=== PATIENT | female | born 1950 | race Caucasian/White ===

== ENCOUNTER 2019-12-06 11:13 | Emergency (ER) | payer MEDICARE, SELFPAY ==
[2019-12-06 11:14] VITALS: BP 155/79; PULSE 97; RESP 16; TEMP 36.3; BMI 25.9
[2019-12-06 12:27] VITALS: RESP 16; O2SAT 95
--- NOTE | 2019-12-06 13:07 | ED.DCSUM_ITS ---
- ER Visit Summary Date of Service: 12/06/19 Chief Complaint: Forehead laceration History of Present Illness: The patient is a 69 F who presents with a forehead laceration that occurred today. Patient states she was walking her dog when he pulled her forward. Patient states she hit her head. Patient denies any loss of consciousness. Patient denies any pain. Patient denies any paresthesias or weakness. Patient was able to ambulate immediately after the fall. Patient states her last tetanus was last week. Patient denies any visual changes. Patient denies any nausea or vomiting. Patient does admit to some mild neck pain. Physical Examination: Vital signs are stable. Patient is afebrile. Patient is in no acute distress. Pupils are equal, round, and reactive to light bilaterally. Extraocular muscles are intact. Skin is warm and dry. There is a 2 x 1 cm T-shaped laceration just above the medial aspect of the left eyebrow. There is minimal gapping of the wound margins. There is no active bleeding. There is no bony crepitance or step-off. There are no foreign bodies noted. Cranial nerves II through XII are intact. Strength is 5/5 bilateral in the upper and lower extremities. Heart was regular rate and rhythm. Lungs are clear and equal bilaterally. Neck is supple. Trachea is midline. There is no JVD. There is minimal left cervical paraspinal tenderness. There is no midline tenderness. There is no bony crepitance or step-off. There is good range of motion. Emergency Department Course and Treatment: The wound was cleaned and irrigated with copious amounts of normal saline. The wound was closed with Dermabond skin adhesive. Patient tolerated procedure well. Patient was instructed to keep the area clean. Patient was instructed to avoid Neosporin, bacitracin, or Vaseline- based ointments. Patient was instructed to follow-up with her primary care physician in 5 to 7 days for wound recheck. Patient understood and was agreeable with the plan. All questions were answered. Disposition: Discharge home Impression: Forehead laceration This note was generated with [employer] dictation software. It may contain incorrect words, spelling, and punctuation that were not noted in review of the chart prior to signing ED Disposition - Plan for ED Patient: Disposition: Home or Assisted Living Diagnosis: Forehead laceration Instructions: ED Laceration Facial Skin Glue Referrals: Ana Lilia Parker DO [Primary Care Provider] - 5-7 Days
== END 2019-12-06 13:21 | disposition home or self-care (01) ==
PROVIDERS: Emergency Provider Emergency Medicine; PCP Internal Medicine
DX: S01.81XA Laceration without foreign body of other part of head, initial encounter (principal); I10 Essential (primary) hypertension; F32.9 Major depressive disorder, single episode, unspecified; E03.9 Hypothyroidism, unspecified; Z79.899 Other long term (current) drug therapy; W26.9XXA Contact with unspecified sharp object(s), initial encounter; Y93.K1 Activity, walking an animal; Y92.89 Other specified places as the place of occurrence of the external cause; Y99.8 Other external cause status
CPT/HCPCS: 12013; 94760; 99284

== ENCOUNTER → 2019-12-15 | Outpatient (CLI) | payer MEDICARE, SELFPAY ==
[2019-12-06 11:14] VITALS: BMI 25.9
--- NOTE | 2019-12-15 12:19 | BI_ITS ---
MAMMOGRAPHY - BILATERAL SCREENING 3-D TOMOSYNTHESIS REASON FOR EXAM: Female, 69 years old. Routine screening PERTINENT HISTORY: NO FAM HX - NO PREV SURG''S - CURRENT LT BRUISE - PREV MAMM 15+ YRS AGO - UNAVAILABLE FOR COMPARISON. TECHNIQUE: 2-D mammograms and 3-D Tomosynthesis of the breast (s) were performed. CAD was performed. COMPARISON: None. FINDINGS: The breast composition is composed of scattered fibroglandular density. Scattered benign calcifications are seen. No dense spiculated masses or suspicious microcalcifications are identified. No architectural distortion is identified. There is no skin thickening or retraction. BI/SCREEN MAMM (CAD) W/LEESA BILAT IMPRESSION: No mammographic signs of malignancy. Routine yearly mammograms recommended. ASSESSMENT CATEGORY: BIRADS Category 1: Negative. A letter regarding these results will be sent to the patient by the facility within 30 days. FOLLOW UP RECOMMENDATION: Yearly follow up mammogram recommended. (A) Approximately 10% of breast cancers are not detected by mammography. A normal mammogram should not delay biopsy of a clinically suspicious abnormality. Electronically Signed: Carlos Fajardo MD at 14:09 EDT , Service support ,
--- NOTE | 2019-12-15 12:20 | BD_ITS ---
STUDY: DUAL ENERGY X-RAY ABSORPTIOMETRY / DXA REASON FOR EXAM: Female, 69 years old. 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 COMPARISON: Comparison is made with prior examination dated 11-07-15. FINDINGS: Lumbar Spine (L1-L4): g/cm2 (1.136) / T-score (-0.4) / Z-score (1.3) Findings are suggestive of normal bone density with a low fracture risk. Left Femur Total: g/cm2 (0.838) / T-score (-1.3) / Z-score (0.1) Left Femoral Neck: g/cm2 (0.802) / T-score (-1.7) / Z-score (-0.1) Right Femur Total: g/cm2 (0.785) / T-score (-1.8) / Z-score (-0.4) Right Femoral Neck: g/cm2 (0.802) / T-score (-1.7) / Z-score (-0.1) The T-Scores on the most recent prior examination were: Lumbar Spine (L1-L4): There has been worsening of bone density since the previous examination. Left Femur Total: which represents an improvement of 0.4%. Right Femur Total: which represents a worsening of 2%. BD/Dexa Bone Density Study IMPRESSION: The patient is considered osteopenic as outlined below according to World Trist[employer] Organization (WHO) criteria with a moderate fracture risk. There has been worsening of bone density since the previous examination. Reference Information: The T-score is the number of standard deviations above or below the standard which is normal for young adults at their peak bone mineral density. The World Health Organization (WHO) interprets the T-scores as follows: Above -1 Normal bone density Between -1 and -2.5 Osteopenia Equal to / or below -2.5 Osteoporosis As a practical clinical guideline, osteopenia may be graded as follows: Mild -1 through -1.5 Moderate -1.6 through -2.0 Severe -2.1 through -2.4 The Z-score is the number of standard deviations above or below age-matched controls. A Z-score of less than -1.5 would be considered abnormal. References: 1. NIH Osteoporosis and Related Bone Diseases http://www.osteo.org 2. International Society for Clinical Densitometry http://www.iscd.org 3. National Osteoporosis Foundation http://www.nof.org Electronically Signed: Kenton Person, at 8:48 EDT , Service support ,
== END | disposition home or self-care (01) ==
PROVIDERS: PCP Internal Medicine; Referring Provider Internal Medicine; Visit Provider Internal Medicine
DX: Z78.0 Asymptomatic menopausal state (principal); Z12.31 Encounter for screening mammogram for malignant neoplasm of breast
CPT/HCPCS: 77063; 77067; 77080

== ENCOUNTER 2020-06-08 21:49 | Emergency (ER) | payer MEDICARE, SELFPAY ==
[2020-06-08 21:50] VITALS: BP 151/84; PULSE 161; PULSE 97; RESP 22; TEMP 36.5; O2SAT 97; BMI 26.2
[2020-06-08 22:13] VITALS: O2SAT 99
--- NOTE | 2020-06-08 22:13 | EKG12_ITS ---
Test Reason : CHEST PAIN Blood Pressure : / mmHG Vent. Rate : 096 BPM Atrial Rate : 096 BPM P-R Int : 164 ms QRS Dur : 074 ms QT Int : 370 ms P-R-T Axes : 058 048 054 degrees QTc Int : 467 ms Sinus rhythm with Premature supraventricular complexes Nonspecific ST abnormality Abnormal ECG Confirmed by GALDINO ROOT, GIANLUCA ([id number]), senior technical editor MARCELO ROJAS ([id number]) on 06/13/2020 6:43:05 AM Referred By: AWAIS Confirmed By:GIANLUCA AHMADI MD
--- NOTE | 2020-06-08 22:22 | RAD_ITS ---
STUDY: X-RAY CHEST REASON FOR EXAM: Female, 69 years old. chest pain radiating into right arm x 30 min. TECHNIQUE: Single AP portable view of the chest. COMPARISON: 07/05/2016. FINDINGS: The lungs are clear and expanded. There is no demonstrated pleural abnormality. Normal size heart. Normal mediastinum and sam. Normal visualized pulmonary arteries. Normal visualized aortic arch and descending thoracic aorta. Normal visualized thoracic spine. Normal visualized ribs, clavicles, and shoulders. There is no demonstrated abnormality of the visualized soft tissue structures of the upper abdomen. RAD/Chest 1 View (Portable) IMPRESSION: Normal x-ray examination of the chest. Electronically Signed: Henry Barkley MD at 22:34 EST , Service support ,
--- NOTE | 2020-06-08 22:34 | ED.VIS.GEN ---
History of Present Illness Chief Complaint: Chest Pain Informant: Patient Narrative: Patient is a 69-year-old female with a past medical history of WPW status post ablation approximately 18 years ago, hypothyroidism who presents to the emergency department for palpitations. This started approximately 30 minutes upon arrival to the ED. Sure watch was telling her heart rate was in the 120s. She felt her heart racing and started to get pain in her right arm. She denies ever having this happen before. She denies any history of CAD. She denied having any significant shortness of breath throughout this episode. Whenever she arrived to the emergency department she started to feel better and on my evaluation she is completely asymptomatic. She denies any recent illness. She denies any fevers or chills. No cough. No nausea/vomiting or diarrhea. She did have a recent decrease in her Synthroid a few weeks ago and she is supposed to have her TSH checked in a week or 2. She denies any leg swelling or calf pain. No history of DVT/PE. Past Medical History - Allergies and Home Meds Allergies/Adverse Reactions: Allergies No Known Allergies Allergy (Verified 06/08/20 21:54) Primary Care Physician: Ana Lilia Parker DO [Primary Care Provider] - 2 Days Prior records reviewed: Yes Past Medical History: - - WPW status post ablation, hypothyroidism Smoking Status: Never smoker Review of Systems All systems negative except as indicated General: Denies: Chills, Fever, Sweats Eyes: Denies: Visual changes - bilaterally, Diplopia ENT: Denies: Rhinorrhea, Sore throat Cardiovascular: Reports: Chest pain, Palpitations, Heart racing Respiratory: Denies: Dyspnea, Cough, Dyspnea on exertion Gastrointestinal: Denies: Abdominal pain, Nausea, Vomiting, Diarrhea Genitourinary: Denies: Dysuria, Hematuria, Frequency Musculoskeletal: Denies: Back pain, Extremity Pain Skin: Denies: Rash, Wounds Neurological: Denies: Headache, Weakness, Numbness Physical Exam Vital Signs/Narrative: Vital Signs Temp Pulse Resp BP Pulse Ox 06/08/20 21:50 97.7 F L 97 22 H 151/84 H 97 Inital Vital Signs reviewed: Yes General: Well nourished, Well developed, No Acute Distress Head: Normocephalic, Atraumatic Eyes: Perrl, EOMI ENT: Moist mucous membranes, No rhinorrhea Neck: Supple, Nontender Cardiovascular: Regular rhythm, No murmurs, Tachycardia - Borderline Respiratory: No distress, CTA bilaterally, Chest nontender Abdomen: Soft, Nontender, Nondistended, Normal bowel sounds Back: Nontender, Normal Inspection Extremities: Nontender, No edema. Negative for: Edema, Calf Tenderness Skin: Normal color, No rash Neurological: Alert, Oriented x3, Cranial nerves II-XII grossly intact, Normal Strength, Normal Sensation Psychological: Normal affect, Normal Mood Diagnostic/Tx/Re-eval - Rhythm Strip Rhythm Strip: A-fib - Patient's rhythm strip upon arrival showed an irregularly irregular rhythm with rates up to 150s. She did convert back to a sinus rhythm. - EKG Initial EKG Interpretation: - - Rate of 96 bpm and normal sinus rhythm. There is a PAC present. Otherwise normal intervals. Normal axis. No significant ST elevations or depressions. Prior EKG for comparison was performed on July 05, 2016 which is similar in appearance. - Medical Decision Making Patient presents to the emergency department for chest pain and palpitations. She was in atrial fibrillation upon arrival but converted without any management on her own. She is completely asymptomatic at this time. Basic lab work being obtained along with chest x-ray. Patient's lab work-up did not reveal any significant acute abnormality. Her potassium was mildly low so this was replaced orally. Her troponin is negative. She otherwise has been stable throughout ED stay without any repeat symptoms. She is adamant on going home now. She needs to have close follow-up with her PCP as I am not sure what caused her to go into this episode of A. fib with RVR. She will likely need a stress test but this can be done as an outpatient. Strict return precautions were discussed with her including any repeat symptoms or developing any chest pain or shortness of breath. She understands and is agreeable this plan. She is discharged home in stable condition. All questions were answered. ED Disposition - Plan for ED Patient: Disposition: Home or Assisted Living Diagnosis: Episodic atrial fibrillation, Palpitations Instructions: ED Palpitations Referrals: Ana Lilia Parker DO [Primary Care Provider] - 2 Days
[2020-06-08 22:41] LABS: Absolute Lymphocyte Count 3.04 X10^3/uL (0.83-4.51); Absolute Neutrophil Count 4.7 X10^3/uL (2.0-7.7); Basophil# 0.08 X10^3/uL; Basophil% 0.9 % (0-1); Eosinophil# 0.35 X10^3/uL; Eosinophils% 3.7 % (0-5); Hematocrit 45.5 % (37-47); Hemoglobin 15.3 g/dL (12.0-15.0); Lymphocyte # 3.04 X10^3/ul (4.0); Lymphocyte % 32.5 % (19-41); Mean Corp Hgb Conc 33.6 g/dL (32-36); Mean Corpuscular Hgb 29.2 pg (27.0-32.0); Mean Corpuscular Volume 86.8 fL (81-99); Mean Platelet Vol. 11.5 fl (6.2-12.0); Monocyte# 1.21 X10^3/uL; Monocyte% 12.9 % (0-10); NRBC Flagged by Analyzer 0 % (0-5); Neutrophil # 4.65 X10^3/uL (2.7-7.7); Neutrophil % 49.7 % (47-70); Platelet Count 304 K/mm3 (150-450); RBC Distribution Width CV 13.2 % (11.6-14.6); RBC Distribution Width SD 41.5 fl (35.1-43.9); Red Blood Count 5.24 M/mm3 (4.2-5.4); White Blood Count 9.4 K/mm3 (4.4-11.0)
[2020-06-08 22:50] VITALS: BP 129/79; PULSE 100; RESP 17; O2SAT 98
[2020-06-08 22:55] LABS: Anion Gap 5 (5-15); BUN 18 mg/dL (7-18); BUN/Creat Ratio 21.6 RATIO (10-20); Calcium,Total 9.3 mg/dL (8.5-10.1); Chloride 103 mmol/L (98-107); Creatinine, Serum 0.83 mg/dL (0.55-1.02); EST Glomerular Filtration Rate 72 mL/min (>60); Est Glom Filt Rate - Afr Amer 87 mL/min (>60); Estimated Creatinine Clearance 48.27 ml/min; Glucose 123 mg/dL (74-106); Magnesium 2.4 mg/dL (1.6-2.6); Potassium 3.2 mmol/L (3.5-5.1); Sodium Level 139 mmol/L (136-145)
[2020-06-08 23:00] VITALS: BP 129/79; PULSE 99; RESP 17; O2SAT 98
[2020-06-08 23:50] VITALS: PULSE 97
== END 2020-06-08 23:51 | disposition home or self-care (01) ==
PROVIDERS: Emergency Provider Emergency Medicine; PCP Internal Medicine
DX: I48.91 Unspecified atrial fibrillation (principal); R00.2 Palpitations; E03.9 Hypothyroidism, unspecified; Z79.899 Other long term (current) drug therapy
CPT/HCPCS: 71045; 80048; 83735; 84484; 85025; 93005; 99285; A4216

== ENCOUNTER → 2020-06-21 06:54 | Outpatient (CLI) | payer MEDICARE, SELFPAY ==
[2020-06-08 21:50] VITALS: BMI 26.2
--- NOTE | 2020-06-22 18:43 | STRESSREP_ITS ---
Stress Test Report Date: 06/21/2020 Procedure: Exercise tolerance test/imaging study Indications: Chest pain Consent: Per the patient Procedure: The patient exercised on a Collins protocol for 6 minutes achieving a peak heart rate of 139 bpm (92% predicted maximal heart rate) with a peak blood pressure 190/70 mmHg and a peak MET capacity of 7 METs. The baseline ECG demonstrated [sinus rhythm]. The peak exercise ECG demonstrated [about [address] depressions in the inferior and lateral leads, but a 6 beat run of nonsustained V. tach]. EKG during recovery revealed return of ST segments to baseline [There were no cardiac dysrhythmias pretest, during exercise, or recovery]. The functional capacity was considered normal for age. Patient had chest pain with exertion. The examination was discontinued secondary to achieving target heart rate. Impression: 1. Technically adequate (percent predicted maximal heart rate greater than 85%) exercise tolerance test 2. Stress test is positive for exercise-induced EKG changes of ischemia 3. The test test is positive for exercise-induced chest pain 4. Functional capacity is normal for age 5. Nuclear images pending Myocardial perfusion imaging study: Technique: The patient was injected with [] mCi of technetium 99m Cardiolite and subsequently rest SPECT Cardiolite nuclear imaging was obtained in the horizontal long, vertical long, and short axis views. The patient exercised on a Collins protocol. Please see above for details. The patient was injected with [] mCi of technetium 99m Cardiolite and subsequently stress SPECT Cardiolite nuclear imaging was obtained in the horizontal long, vertical long, and short axis views. A gated Cardiolite study at peak stress was obtained. Interpretation: Rest and stress SPECT Cardiolite nuclear imaging status post realignment, normalization, and attenuation correction, demonstrates normal myocardial radiotracer uptake on the stress images. There is no evidence of significant ischemia or infarction. The gated Cardiolite study demonstrates no significant regional wall motion abnormalities. The reported LVEF is greater than 70%. Impression: 1. There is no evidence of significant ischemia or infarction. Please see the EKG portion above as well. 2. The gated Cardiolite study reports an LVEF of greater than 70%. This note was generated with [employer] software. It may contain incorrect words, spelling, and punctuation that were not noted in checking the note before signing.
== END ==
PROVIDERS: PCP Internal Medicine; Referring Provider Internal Medicine; Visit Provider Internal Medicine
DX: R07.89 Other chest pain (principal)
CPT/HCPCS: 78452; 93017; A9500; A4216

== ENCOUNTER → 2020-06-25 12:43 | Outpatient (CLI) | payer MEDICARE, SELFPAY ==
[2020-06-08 21:50] VITALS: BMI 26.2
--- NOTE | 2020-06-25 12:47 | ECHOD_ITS ---
Reason For Study: Chest Pain Procedure This was a 2D Doppler, Color Flow transthoracic echocardiogram. Exam performed in department. Left Ventricle Normal LV size. Apical false tendon noted. Left ventricular systolic function is normal. The estimated ejection fraction is 65 %. Stage 1 diastolic dysfunction. No regional wall motion abnormalities noted. Right Ventricle Normal RV size. Normal systolic function. Atria Normal left atrium. Normal right atrium. Mitral Valve Normal mitral valve. Tricuspid Valve Normal tricuspid valve. Aortic Valve Normal aortic valve. Trisinus/trileaflet aortic valve. Pulmonic Valve Normal pulmonic valve. Great Vessels Normal aortic root. The pulmonary artery is normal size. Normal inferior vena cava. Pericardium/Pleural No pericardial effusion. MMode/2D Measurements & Calculations LVIDd: 3.9 cm IVSd: 1.0 cm Ao root diam: 3.1 cm LVIDs: 2.0 cm LVPWd: 0.79 cm LA dimension: 3.2 cm FS: 48.2 % LAV(MOD-bp): 42.8 ml LA A4 area: 17.8 cm2 RA A4 area: 17.9 cm2 LAV(MOD-bp) Indexed: 26.0 ml/m2 LAV(MOD-sp2): 38.5 ml LAV(MOD-sp4): 46.0 ml Time Measurements MV dec time: 0.31 sec Doppler Measurements & Calculations MV E max diego: 72.3 cm/sec Lat Peak E' Diego: 8.9 cm/sec Med Peak E' Diego: 8.1 cm/sec MV A max [place]go: 93.8 cm/sec E/E' lat: 8.1 E/E' med: 9.0 MV E/A: 0.77 MV V2 max: 106.9 cm/sec MV P1/2t max [place]: 104.0 cm/sec Ao V2 max: 146.5 cm/sec MV max P.6 mmHg MV P1/2t: 105.7 msec Ao max P.6 mmHg MV V2 mean: 60.6 cm/sec MV dec slope: 288.1 cm/sec2 MV mean P.7 mmHg MVA(P1/2t): 2.1 cm2 MV V2 VTI: 35.1 cm LV V1 max: 127.3 cm/sec PA V2 max: 105.0 cm/sec LV V1 max P.5 mmHg Interpretation Summary Normal LV size. Left ventricular systolic function is normal. The estimated ejection fraction is 65 %. Stage 1 diastolic dysfunction. Ordering Physician: Ana Lilia Parker Referring Physician: Ana Lilia Parker Performed By: Slava Lopez RCS
== END ==
PROVIDERS: PCP Internal Medicine; Referring Provider Internal Medicine; Visit Provider Internal Medicine
DX: R07.89 Other chest pain (principal)
CPT/HCPCS: 93306

== ENCOUNTER → 2020-08-20 12:29 | Outpatient (CLI) | payer MEDICARE, SELFPAY ==
[2020-08-02 11:11] VITALS: BMI 27.3
== END ==
PROVIDERS: PCP Internal Medicine; Referring Provider Internal Medicine Cardiovascular Disease; Visit Provider Internal Medicine Cardiovascular Disease
DX: I47.2 Ventricular tachycardia (principal); I45.6 Pre-excitation syndrome; R07.9 Chest pain, unspecified; I10 Essential (primary) hypertension; R94.39 Abnormal result of other cardiovascular function study; Z98.890 Other specified postprocedural states
CPT/HCPCS: 93225; 93226

== ENCOUNTER → 2020-08-24 09:00 | Outpatient (CLI) | payer MEDICARE, SELFPAY ==
[2020-08-02 11:11] VITALS: BMI 27.3
--- NOTE | 2020-08-24 09:20 | RAD_ITS ---
INDICATION: chest pain EXAMINATION/TECHNIQUE: X-RAY - XR Chest 2 Views COMPARISON: 06/08/2020. FINDINGS: The lungs are clear. The cardiomediastinal silhouette is unremarkable. No pleural effusion or pneumothorax. No acute osseous abnormalities. Degenerative changes of thoracic spine. RAD/Chest PA and Lateral IMPRESSION: No acute radiographic abnormalities. Electronically Signed: Byron Nguyen MD at 21:43 EDT Tel , Service support ,
[2020-08-24 09:23] LABS: Absolute Lymphocyte Count 1.32 X10^3/uL (0.83-4.51); Absolute Neutrophil Count 3.2 X10^3/uL (2.0-7.7); Basophil# 0.07 X10^3/uL; Basophil% 1.3 % (0-1); Eosinophil# 0.23 X10^3/uL; Eosinophils% 4.2 % (0-5); Hemoglobin 15.1 g/dL (12.0-15.0); Lymphocyte # 1.32 X10^3/ul (4.0); Lymphocyte % 24.4 % (19-41); Mean Corp Hgb Conc 32.8 g/dL (32-36); Mean Corpuscular Volume 88.3 fL (81-99); Mean Platelet Vol. 10.6 fl (6.2-12.0); Monocyte# 0.57 X10^3/uL; Monocyte% 10.5 % (0-10); NRBC Flagged by Analyzer 0 % (0-5); Neutrophil # 3.22 X10^3/uL (2.7-7.7); Neutrophil % 59.4 % (47-70); Platelet Count 308 K/mm3 (150-450); RBC Distribution Width CV 12.3 % (11.6-14.6); RBC Distribution Width SD 39.8 fl (35.1-43.9); Red Blood Count 5.21 M/mm3 (4.2-5.4); White Blood Count 5.4 K/mm3 (4.4-11.0)
[2020-08-24 09:31] LABS: Prothrombin Time (Protime)PT. 12.6 SECONDS (11.7-14.9)
[2020-08-24 09:32] LABS: Partial Thromboplast Time 24.8 Seconds (24.1-36.2)
[2020-08-24 10:06] LABS: Anion Gap 5 (5-15); BUN 14 mg/dL (7-18); BUN/Creat Ratio 19.4 RATIO (10-20); Calcium,Total 8.8 mg/dL (8.5-10.1); Chloride 103 mmol/L (98-107); Creatinine, Serum 0.72 mg/dL (0.55-1.02); EST Glomerular Filtration Rate 85 mL/min (>60); Est Glom Filt Rate - Afr Amer 103 mL/min (>60); Glucose 100 mg/dL (74-106); Potassium 3.6 mmol/L (3.5-5.1); Sodium Level 138 mmol/L (136-145)
== END ==
PROVIDERS: PCP Internal Medicine; Visit Provider Internal Medicine Cardiovascular Disease
DX: I10 Essential (primary) hypertension (principal); I45.6 Pre-excitation syndrome; I47.2 Ventricular tachycardia; R07.9 Chest pain, unspecified; R94.39 Abnormal result of other cardiovascular function study; Z98.890 Other specified postprocedural states
CPT/HCPCS: 36415; 71046; 80048; 85025; 85610; 85730

== ENCOUNTER 2020-08-28 07:39 | Day surgery (SDC) | payer MEDICARE, SELFPAY ==
[2020-08-02 11:11] VITALS: BMI 27.3
[2020-08-27 08:32] VITALS: BMI 27.1
--- NOTE | 2020-08-27 17:48 | PCM.HP.BLA ---
Problem List (1) Chest pain Status: Acute Qualifiers: (2) WPW (Vdzdh-Sxjzdhrqx-Vicqi syndrome) Status: Acute (3) History of radiofrequency ablation procedure for cardiac arrhythmia Status: Resolved (4) Essential hypertension Status: Chronic History and Physical Date of Admission: 08/28/20 [facility] [address] [place] [address] OFFICE VISIT Date of Service: 08/02/20 MR#: [id number] Acct: [id number] Name: BECKY GARZA Rep #: [id number] : 1950 Provider: Dr. Jorge Alberto Valle MD Age/Sex: 69/F Location: [facility] [place] Status: Signed HPI HPI History of Present Illness Surgical H&P: Yes Details: This is a 69-year-old white female who has previously been evaluated by [facility] in the remote past (greater than 3 years ago) who presents now for evaluation of concerns of palpitations, chest discomfort, and an abnormal exercise tolerance test. In the past she had been diagnosed with WPW and underwent EPS/RFA. Since that time she does not believe she has had any recurrence of her supraventricular dysrhythmia. She notes more recently she has had palpitations. She states she thinks these are occurring every day or 2 days. She also gets chest discomfort with this. She has undergone recent noninvasive evaluation on 06-25-2020. This included a transthoracic echocardiogram. The results are noted below. She had also undergone evaluation with an exercise tolerance test/imaging study which had been performed on 06-21-2020. Again the report was reviewed and is as noted below. Of note there was a discrepancy in her exercise tolerance test demonstrating a concern of an abnormal ECG exercise tolerance test with ST segment depression and an episode of nonsustained ventricular tachycardia. Her myocardial perfusion study appeared to be unremarkable. She has undergone remote transthoracic echocardiogram on 04-28-2002 at which time her left ventricle was thought to be normal with an LVEF of 63% with notation of an apical false tendon and trivial MR/TR/NV and an estimated RV systolic pressure of 31 mmHg. She had a previous stress echocardiogram performed on 08-30-2002 at which time it was considered negative for echocardiographic evidence of stress-induced myocardial ischemia. She had an occasional PAC during exercise and recovery. She had an ECG at [facility] on 06-08-2020. At that time it was reported as demonstrating sinus rhythm with premature supraventricular complexes with nonspecific ST segment abnormality. This was repeated today. She was noted to have sinus rhythm with no acute ECG changes. She has denied any other forms of discomfort. She denies any orthopnea or PND or peripheral pitting edema. There has been no near syncope or syncope. Intake Vital Signs 08/02/20 Height 5 ft 1 in 08/02/20 Weight: 144 lb 7 oz 08/02/20 BMI 27.3 08/02/20 BP 124/58 H 08/02/20 Blood Pressure Location Lt brachial 08/02/20 Position Sitting 08/02/20 Respiration 16 08/02/20 Pulse 72 08/02/20 Pulse Source Auscultation Intake Visit Reasons: Abn Stress/Ref. [employer] Specialist Required: No Accompanied by: Self Allergies No Known Allergies Allergy (Verified 08/02/20 11:11) anesthesia Adverse Reaction (Uncoded 08/02/20 14:21) Nausea & Vomiting Medications Cholecalciferol (Vitamin D3) [Vitamin D3] 4,000 unit PO DAILY 07/05/16 [History Confirmed 08/02/20] Chlorthalidone 25 mg PO DAILY 12/06/19 [History Confirmed 08/02/20] Diltiazem [Cardizem] 120 mg PO DAILY 12/06/19 [History Confirmed 08/02/20] Duloxetine Hcl [Cymbalta] 60 mg PO DAILY 12/06/19 [History Confirmed 08/02/20] Alendronate Sodium 70 mg PO QMONTH 06/08/20 [History Confirmed 08/02/20] Brimonidine 0.15% [Alphagan P 0.15%] 1 drp OPHTHALMIC TID 06/08/20 [History Confirmed 08/02/20] calcium carbonate 600 mg calcium (1,500 mg) tablet 600 mg PO DAILY 07/31/20 [History Confirmed 08/02/20] isosorbide mononitrate 30 mg tablet,extended release 24 hr 30 mg PO DAILY 07/31/20 [History Confirmed 08/02/20] aspirin 81 mg tablet,delayed release 81 mg PO DAILY #30 tab 08/02/20 [Rx Confirmed 08/02/20] clopidogrel 75 mg tablet 75 mg PO DAILY #30 tab 08/02/20 [Rx Confirmed 08/02/20] levothyroxine 112 mcg tablet 112 mcg PO DAILY 08/02/20 [History Confirmed 08/02/20] [facility] Medical History WPW (Ujfdv-Zftvfthyx-Bigaj syndrome) (Acute) Chest pain (Acute) Hypothyroidism (Chronic) Family history of UT (myocardial infarction) (Acute) SVT (supraventricular tachycardia) (Acute) Essential hypertension (Chronic) Depression (Acute) Surgical History History of radiofrequency ablation procedure for cardiac arrhythmia (Resolved ~2002) History of surgery on left wrist (Resolved) Family History Other Diabetes Heart disease Hypertension Myocardial infarction Social History (Updated 08/02/20 @ 15:[address] Jorge Alberto Valle MD) Smoking Status: Never smoker alcohol intake: never substance use type: does not use caffeine: Yes Type: tea Number of servings: 6 ROS Const Const: Positive for fatigue (sleepy); negative for weakness, frequent falls, excessive sweating, weight gain or weight loss Eyes Eyes: Negative for transient loss of vision, blurry vision or change in vision ENT ENT: Positive for dizziness (HX vertigo); negative for balance problems Cardio Chest Pain: Yes Character: other (pressure noted w/palpitations) Onset: at rest, exercise Location: left chest Duration: minutes Palpitations: Yes (just about daily) feels like its: fast Edema: None Muscle aches with walking: None Resp Respiratory: Positive for SOB with activity (occasional); negative for SOB at rest GI GI: Negative vomiting or vomiting blood/hematemesis : Negative for hematuria Musc Musc: Negative for muscle aches/ myalgia, muscle weakness, joint pain or balance problems Skin Skin: Negative non-healing lesions or rash Neuro Neuro: Positive for dizziness (HX vertigo) and vertigo (HX); negative for lightheadedness, orthostatic symptoms, frequent falls, weakness or blurry vision Vadim Hematologic/Lymphatic: Negative for easy bleeding Endo Endo: Positive for fatigue (sleepy); negative for excessive sweating Psych Psych: Negative for anxiety or depression Allergy Allergy/Immunology: Negative for hives, Negative for rash Cardiology Exam Const Appearance: cooperative, healthy appearing, comfortable, no acute distress, well developed and well groomed Nutritional Appearance: average body habitus Orientation: alert, awake and oriented x3 Head Head: normal to inspection, normocephalic and atraumatic Ears: hearing grossly normal bilaterally Nose: external nose normal Face and Sinus: face symmetric Eyes Eyelids: eyelids normal Conjunctivae: conjunctivae normal Pupils: PERRL EOM: EOM intact bilaterally Neck Neck: normal visual inspection and full ROM Carotids: normal carotid upstroke Chest Chest inspection: normal inspection of the chest, symmetric chest movement and normal respiratory effort Auscultation: Bilateral: Clear to Auscultation Cardio Palpation: normal PMI Rate: regular rate Rhythm: regular rhythm Heart sounds: S1 normal and S2 normal GI GI: normal to inspection, soft and bowel sounds present Neuro General: alert, awake, oriented x3 and moves all extremities Skin Skin: no rashes or lesions noted Extremities Pulses: Normal: Right Radial Pulse, Left Radial Pulse Lower Extremity Edema: None: Bilateral Psych Psychological: normal affect Assessment & Plan 1. WPW (Dtrkw-Llodhkynx-Uijqg syndrome) I45.6 Plan At the present time she does have a history of WPW. She is undergone EPS/RFA. There is been no obvious recurrence of her dysrhythmia. Orders Orders: Left Heart Cath/COR/LV Percut Today Basic Metabolic Profile (BMP) Today Partial Thromboplast Time Today Prothrombin Time w/INR Today Cardiac Holter Monitor, Set-Up Today CBC W/Diff, Automated Today Chest PA and Lateral Today 2. History of radiofrequency ablation procedure for cardiac arrhythmia Z98.890 Plan Her previous EPS/RFA report is unavailable for review at this time. Orders Orders: Left Heart Cath/COR/LV Percut Today Basic Metabolic Profile (BMP) Today Partial Thromboplast Time Today Prothrombin Time w/INR Today Cardiac Holter Monitor, Set-Up Today CBC W/Diff, Automated Today Chest PA and Lateral Today 3. Precordial pain R07.2 Plan She does have a combination of palpitations and precordial chest discomfort that appears to be associated with them. She will have further evaluation with an Holter monitor. At the same time based upon her discomfort and her ECG exercise tolerance test results and her ventricular dysrhythmia finding it would not be unreasonable to further definitively evaluate her coronary anatomy for any underlying CAD with a diagnostic cardiac catheterization. The procedure and risks were discussed with her and she was agreeable to this. 4. Palpitations R00.2 Plan She does palpitations. Again there is concern as to whether this could be recurrence of her previous cardiac dysrhythmia versus underlying ectopy or some other form of dysrhythmia. As previously noted she did have evidence of ventricular tachycardia on her exercise tolerance test. Thus she will undergo evaluation, as she states this occurs usually on an every day occurrence, with an Holter monitor. 5. Ventricular tachycardia I47.2 Plan Her exercise ECG did demonstrate concerns of ventricular tachycardia. Again this does raise concern about the possibility of CAD despite her myocardial perfusion study remaining unremarkable which potentially could be a false negative study. Thus she will continue medical management and undergo evaluation as noted. Orders Orders: Left Heart Cath/COR/LV Percut Today Basic Metabolic Profile (BMP) Today Partial Thromboplast Time Today Prothrombin Time w/INR Today Cardiac Holter Monitor, Set-Up Today CBC W/Diff, Automated Today Chest PA and Lateral Today 6. Abnormal cardiovascular stress test R94.39 Plan Her exercise tolerance test is mixed. Based upon her symptoms and her ECG findings and her ventricular dysrhythmia findings it was felt prudent that she undergo further evaluation with diagnostic cardiac catheterization. Again the procedure and risks were discussed with her and she was agreeable to this. Orders Orders: Left Heart Cath/COR/LV Percut Today Basic Metabolic Profile (BMP) Today Partial Thromboplast Time Today Prothrombin Time w/INR Today Cardiac Holter Monitor, Set-Up Today CBC W/Diff, Automated Today Chest PA and Lateral Today 7. Essential hypertension I10 Plan She will continue medical therapy as deemed appropriate. Orders Orders: 12 Lead EKG performed by BMS Today Left Heart Cath/COR/LV Percut Today Basic Metabolic Profile (BMP) Today Partial Thromboplast Time Today Prothrombin Time w/INR Today Cardiac Holter Monitor, Set-Up Today CBC W/Diff, Automated Today Chest PA and Lateral Today Plan Detail Other Orders Orders: 12 Lead EKG performed by BMS Today I47.1 Left Heart Cath/COR/LV Percut Today R07.9 Basic Metabolic Profile (BMP) Today R07.9 Partial Thromboplast Time Today R07.9 Prothrombin Time w/INR Today R07.9 Cardiac Holter Monitor, Set-Up Today R07.9 CBC W/Diff, Automated Today R07.9 Chest PA and Lateral Today R07.9 Other Medications New: aspirin 81 mg PO DAILY 30 tabs 0RF clopidogrel (Plavix) 75 mg PO DAILY 30 tabs 1RF Follow Up 3 Months (PFM) Coding Level of Care Code Off vis,new,level 5 Diagnoses WPW (Hedci-Ckklgeayd-Elnos syndrome) I45.6 History of radiofrequency ablation procedure for cardiac arrhythmia Z98.890 Precordial pain R07.2 ??Chest pain type: precordial pain Palpitations R00.2 Ventricular tachycardia I47.2 Abnormal cardiovascular stress test R94.39 Essential hypertension I10 Coding Level of Care Code Off vis,new,level 5 Diagnoses WPW (Iotur-Hvnzhaabs-Brleg syndrome) I45.6 History of radiofrequency ablation procedure for cardiac arrhythmia Z98.890 Precordial pain R07.2 ??Chest pain type: precordial pain Palpitations R00.2 Ventricular tachycardia I47.2 Abnormal cardiovascular stress test R94.39 Essential hypertension I10 Supplemental Info Supplemental Information Echocardiogram: 06-25-2020 Interpretation Summary Normal LV size. Left ventricular systolic function is normal. The estimated ejection fraction is 65 %. Stage 1 diastolic dysfunction. Stress Test Report Date: 06/21/2020 Procedure: Exercise tolerance test/imaging study Indications: Chest pain Consent: Per the patient Procedure: The patient exercised on a Collins protocol for 6 minutes achieving a peak heart rate of 139 bpm (92% predicted maximal heart rate) with a peak blood pressure 190/70 mmHg and a peak MET capacity of 7 METs. The baseline ECG demonstrated [sinus rhythm]. The peak exercise ECG demonstrated [about [address] depressions in the inferior and lateral leads, but a 6 beat run of nonsustained V. tach]. EKG during recovery revealed return of ST segments to baseline [There were no cardiac dysrhythmias pretest, during exercise, or recovery]. The functional capacity was considered normal for age. Patient had chest pain with exertion. The examination was discontinued secondary to achieving target heart rate. Impression: 1. Technically adequate (percent predicted maximal heart rate greater than 85%) exercise tolerance test 2. Stress test is positive for exercise-induced EKG changes of ischemia 3. The test test is positive for exercise-induced chest pain 4. Functional capacity is normal for age 5. Nuclear images pending Myocardial perfusion imaging study: Technique: The patient was injected with [] mCi of technetium 99m Cardiolite and subsequently rest SPECT Cardiolite nuclear imaging was obtained in the horizontal long, vertical long, and short axis views. The patient exercised on a Collins protocol. Please see above for details. The patient was injected with [] mCi of technetium 99m Cardiolite and subsequently stress SPECT Cardiolite nuclear imaging was obtained in the horizontal long, vertical long, and short axis views. A gated Cardiolite study at peak stress was obtained. Interpretation: Rest and stress SPECT Cardiolite nuclear imaging status post realignment, normalization, and attenuation correction, demonstrates normal myocardial radiotracer uptake on the stress images. There is no evidence of significant ischemia or infarction. The gated Cardiolite study demonstrates no significant regional wall motion abnormalities. The reported LVEF is greater than 70%. Impression: 1. There is no evidence of significant ischemia or infarction. Please see the EKG portion above as well. 2. The gated Cardiolite study reports an LVEF of greater than 70%. Labs LDL Cholesterol 123 mg/dL (0-130) 12/09/16 HDL Cholesterol 68 mg/dL (40-) 12/09/16 Triglycerides 67 mg/dL (-199) 12/09/16 VLDL Cholesterol 13 mg/dL (5-40) 12/09/16 Diagnostics Electrocardiogram 08/02/20 Echocardiogram 06/25/20 Stress Test Nuclear Medicine 06/21/20 Stress Test 06/22/20 Chest X-Ray 06/08/20 COVID (Procedure Consent) Procedure Criteria Procedure Criteria: Yes Elective The surgeon/proceduralist and patient have discussed in detail the risk of exposure to and/or potential harm posed by the COVID-19 virus with having a surgery/procedure at this time versus the risk of? delaying the surgery/procedure. It is not possible to know either the risk of delaying the surgery or procedure or chance of getting an infection with perfect accuracy, but a joint decision was made between the patient and the surgeon/proceduralist ?to proceed at this time with the scheduled surgery/procedure as indicated on the consent form. 08/02/20 1538 <Electronically signed by Jorge Alberto Valle MD> Date Jorge Alberto Valle MD I have re-examined the patient. There are no clinical changes since date of exam. I have re-examined the patient. There are no clinical changes since date of exam. Procedure Criteria Procedure Type: Elective COVID Risk Discussion: The surgeon/proceduralist and patient have discussed in detail the risk of exposure to and/or potential harm posed by the COVID-19 virus with having a surgery/procedure at this time versus the risk of delaying the surgery/procedure. It is not possible to know either the risk of delaying the surgery or procedure or chance of getting an infection with perfect accuracy, but a joint decision was made between the patient and the surgeon/proceduralist to proceed at this time with the scheduled surgery/procedure as indicated on the consent form.
--- NOTE | 2020-08-28 10:02 | CL.D_ITS ---
Patient Name: BECKY GARZA Study Date: 08/28/2020 Performing: Jorge Alberto Valel MD Ht: 61.02 inches 155 cm : 1950 Wt: 143.3 lbs 65 kg Age: 69 Gender: female BSA: 1.64 PROCEDURE(S) PERFORMED BV89-VZS/COR/LV CLINICAL PROFILE AND INDICATIONS Indications: Suspected CAD, Cardiac Arrythmia Heart Failure: None Stress/Imaging Date: 06/21/2020tress Test with SPECT MPI: Positive Intermediate Risk (abnormal E CG portion) Angina Classification Anginal Classification w/in 2 Weeks: CCS II CAD Presentations: Other: chest pain; palpitations CONCLUSIONS Elevated Left Ventricular End Diastolic Pressure Normal LV size, wall motion,and systolic function LVEF: by LV gram 65 % Mechoopda Multivessel CAD (non angiographically significant appearing) RECOMMENDATIONS Risk factor modification Medical therapy DESCRIPTION OF PROCEDURE The patient arrived to the procedure lab. The risks and benefits of the procedure as well as a full d escription of our services here and current unavailability of surgical backup were fully explained to the patient and/or their significant other prior to the catheterization. The Timeout was completed, verifying the correct patient and procedure. The patient's procedural site was prepped and draped in the usual fashion. Local anesthetic was given subcutaneously to right radial region with Lidocaine 2% . Using a modified Seldinger technique, arterial access was obtained via the right radial artery, a 6 Fr sheath was inserted. Right Coronary Artery selective angiography was then performed in multiple v iews using a 5 Fr. 4.0 Nixa catheter. Left Coronary Artery selective angiography was performed in mu ltiple views using a 5 Fr. 4.0 Nixa catheter. Left Ventriculography was performed in HENRIQUEZ projection using a 5 Fr. Pigtail catheter. LV to AO pullback pressures were then recorded.The arterial sheath was pulled and a TR Band was applied for hemostasis CORONARY ANGIOGRAPHY DOMINANCE: Right Dominant LEFT HEART ASSESSMENT Left Ventricular Ejection Fraction: by LV Gram 65 % Normal LV wall motion Elevated Left Ventricular End Diastolic Pressure LVEDP: 22 mmHg LEFT MAIN: Angiographically normal LEFT ANTERIOR DESCENDING ARTERY: PROX LAD: Mild luminal irregularities DIAGONAL 1: high diagoal branch: small vessel: ostial: smooth: 25 % Stenosis CIRCUMFLEX ARTERY: MID CIRC: Mild luminal irregularities RIGHT CORONARY ARTERY: Angiographically normal AORTIC ROOT: Angiographically normal COMPLICATIONS No Complications PROCEDURE MEDICATIONS Versed 1 mg IV Fentanyl 50 mcg IV Oxygen: 2 L/min via nasal cannula Heparin given IA 08/28/2020 09:28:59 Zofran 4 mg IV 08/28/2020 09:17:43 SUMMARY OF HEMODYNAMIC DATA Time AIR REST ECG 08:02:54 AO 138/57 (83) SA 09:24:39 AO 104/55 (75) 09:31:34 LV 128/3, 23 09:38:07 LV 124/0, 22 09:38:15 LV 121/2, 23 09:39:01 LV 114/3, 22 09:39:08 LVp 111/4, 18 09:39:14 AOp 128/58 (86) 09:39:19 Signed By Jorge Alberto Valle MD On 08/28/2020 10:01:30 Jorge Alberto Valle MD
== END 2020-08-28 11:35 | disposition home or self-care (01) ==
PROVIDERS: PCP Internal Medicine; Referring Provider Internal Medicine Cardiovascular Disease; Visit Provider Internal Medicine Cardiovascular Disease
DX: I25.10 Atherosclerotic heart disease of native coronary artery without angina pectoris (principal); I45.6 Pre-excitation syndrome; R07.2 Precordial pain; R00.2 Palpitations; I47.2 Ventricular tachycardia; R94.39 Abnormal result of other cardiovascular function study; I10 Essential (primary) hypertension; E03.9 Hypothyroidism, unspecified; F32.9 Major depressive disorder, single episode, unspecified; Z79.899 Other long term (current) drug therapy; Z98.890 Other specified postprocedural states
CPT/HCPCS: 93458; 99152; 99153; J7040; Q9967; C1769; C1894; J2405

== ENCOUNTER → 2020-09-03 10:51 | Outpatient (CLI) | payer MEDICARE, SELFPAY ==
[2020-08-27 08:32] VITALS: BMI 27.1
[2020-09-03 12:01] LABS: Free T3 2.8 pg/mL (2.18-3.98); T4 Free Direct 1.58 ng/dL (0.76-1.46); Thyroid Stim Hormone (TSH) 0.72 uIU/mL (0.358-3.74)
== END ==
PROVIDERS: PCP Internal Medicine; Referring Provider Internal Medicine; Visit Provider Internal Medicine
DX: E03.9 Hypothyroidism, unspecified (principal)
CPT/HCPCS: 36415; 84439; 84443; 84481

== ENCOUNTER 2021-04-23 13:49 | Outpatient (CLI) | payer MEDICARE, SELFPAY ==
[2021-04-23 13:58] VITALS: BP 120/53; PULSE 58; RESP 16; TEMP 36.3; O2SAT 100; BMI 28.6
[2021-04-23] MEDS: 0.9% Saline Lock 10 ML Syringe IV (14:03)
[2021-04-23 14:55] VITALS: BP 114/54; PULSE 59; RESP 16; TEMP 36.9; O2SAT 95
[2021-04-23 15:53] VITALS: BP 110/57; PULSE 58; RESP 16; TEMP 36.6; O2SAT 97
== END 2021-04-23 15:56 | disposition home or self-care (01) ==
LOC: MS3OUT 13:49 → MS3 13:50
PROVIDERS: PCP Internal Medicine; Referring Provider Nurse Practitioner Adult Health; Visit Provider Nurse Practitioner Adult Health
DX: Z23 Encounter for immunization (principal); U07.1 COVID-19
CPT/HCPCS: J7050; M0245; Q0245; A4216

== ENCOUNTER → 2021-05-10 12:16 | Outpatient (CLI) | payer MEDICARE, SELFPAY ==
--- NOTE | 2021-05-10 12:18 | BI_ITS ---
MAMMOGRAPHY - BILATERAL SCREENING REASON FOR EXAM: Female, 70 years old. Routine annual screening examination. PERTINENT HISTORY: Non-contributory. TECHNIQUE: Digital bilateral breast leesa (3D mammographic acquisition) in the CC and MLO projections. 2-D mediolateral oblique (MLO) and craniocaudad (CC) views of both breasts were obtained. CAD: Full Field Digital Mammography with Computer Added Detection was performed. COMPARISON: Comparison is made with prior study dated 12/15/2019. FINDINGS: Breast Composition: There are scattered areas of fibroglandular density. There are no dominant masses or suspicious calcifications. Stable 8.9 mm well-defined nodule in the deep upper lateral aspect of the left breast. I suspect this to be a small lymph node. Correlation with ultrasound is recommended for further evaluation. No other significant abnormalities are identified. BI/SCRN MAMM (CAD)W/LEESA BILAT IMPRESSION: 8 mm well-defined nodule in the deep upper lateral aspect of the left breast. I suspect this to be a benign-appearing lymph node. Correlation with ultrasound is recommended. ASSESSMENT CATEGORY: BIRADS Category 0: Incomplete. Need additional imaging evaluation. A letter regarding these results will be sent to the patient by the facility within 30 days. Approximately 10% of breast cancers are not detected by mammography. A normal mammogram should not delay biopsy of a clinically suspicious abnormality. [id number] Electronically Signed: Kenton Person MD at 14:02 EST , Service support ,
== END ==
PROVIDERS: PCP Internal Medicine; Referring Provider Internal Medicine; Visit Provider Internal Medicine
DX: Z12.31 Encounter for screening mammogram for malignant neoplasm of breast (principal)
CPT/HCPCS: 77063; 77067

== ENCOUNTER → 2021-05-15 08:54 | Outpatient (CLI) | payer MEDICARE, SELFPAY ==
--- NOTE | 2021-05-15 08:57 | US_ITS ---
STUDY: ULTRASOUND BREAST - LEFT REASON FOR EXAM: Female, 70 years old. Abnormal screening mammogram. TECHNIQUE: Axial and longitudinal images of the LEFT breast were performed with a high resolution ultrasound transducer. # OF IMAGES: 35 COMPARISON: Comparison is made with prior mammogram dated 05/10/2021. FINDINGS: LEFT Breast: The entire lateral half of the left breast was examined by ultrasound. Incidental note is made of a 3 mm x 3 mm x 2 mm cyst at the 12 o''clock position of the breast at 1 cm from nipple. The mammographic abnormality is not visualized. Additional mammographic views will be performed. US/Breast Limited Unilateral IMPRESSION: Incidental finding of a 3 mm x 2 mm x 3 mm cyst at the 12 o''clock position breast 1 cm from nipple. The mammographic abnormality was not visualized. Additional mammographic views will be obtained. ASSESSMENT CATEGORY: BIRADS Category 0: Incomplete. Need additional imaging evaluation. A letter regarding these results will be sent to the patient by the facility within 30 days. Electronically Signed: Kenton Person MD at 10:58 EST ,
--- NOTE | 2021-05-15 09:29 | BI_ITS ---
MAMMOGRAPHY - UNILATERAL DIAGNOSTIC: LEFT BREAST REASON FOR EXAM: Female, 70 years old. A normal screening mammogram. PERTINENT HISTORY: Non-contributory. TECHNIQUE: Compression magnification views of the left breast were obtained. CAD: Full Field Digital Mammography with Computer Added Detection was performed. COMPARISON: Comparison is made with prior mammogram dated 05/10/2021. FINDINGS: Breast Composition: There are scattered areas of fibroglandular density. There is a persistent 8.1 mm x 5.1 mm well-defined nodule in the upper lateral aspect of the left breast. This most likely presents a small lymph node. The targeted ultrasound did not demonstrate any abnormality. A biopsy is recommended. No other significant abnormalities are identified. BI/DIAG MAMM W/CAD, UNILAT IMPRESSION: Stable 8.1 mm x 5.1 mm well-defined nodule in the deep upper lateral aspect of the left breast. Ultrasound did not demonstrate any abnormality. A targeted biopsy is recommended. ASSESSMENT CATEGORY: BIRADS Category 4: Suspicious - Biopsy Should Be Considered. A letter regarding these results will be sent to the patient by the facility within 30 days. Approximately 10% of breast cancers are not detected by mammography. A normal mammogram should not delay biopsy of a clinically suspicious abnormality. Electronically Signed: Kenton Person MD at 10:44 EST , Service support ,
== END ==
PROVIDERS: PCP Internal Medicine; Visit Provider Internal Medicine
DX: R92.8 Other abnormal and inconclusive findings on diagnostic imaging of breast (principal)
CPT/HCPCS: 76642; 77061; 77065; G0279

== ENCOUNTER 2021-05-30 11:53 | Outpatient (CLI) | payer MEDICARE, SELFPAY ==
--- NOTE | 2021-05-30 | IMM_PTH ---
PATIENT: BECKY GARZA LOC: [facility] U#:[id number] AGE/SX: 70/F ROOM: RE05/30/[address]: Dr. Vince Adams MD : 1950 BED: DIS: 05/30/2021 SPEC #: [id number] RECD: 05/31/21 13:51 STATUS: ETIENNE REKisha #: [id number] BRUNO: 05/30/21 00:[address]: Vince Adams DEPT: IMMUNOHISTOCHEMISTRY RECD BY: Gely Mehta ENTERED: 05/31/21 13:52 SP TYPE: IMMUNO OTHR DR: Dr. Ana Lilia Parker DO Tissues: Left breast, NOS Procedures: Calponin-1(initial) P40 (add) PHYSICIAN & INSTITUTION [place] [id number] SPECIMEN INFORMATION: Tissue Source: Left breast, deep upper outer quadrant, stereotactic biopsy Clinical Info: Left breast nodule, deep upper outer quadrant Specimen Number: [id number] CPT code: 00961, 66124 METHODOLOGY: Deparaffinized sections of prefer/formalin-fixed tissue or PAP/DQ stained slides are incubated with monoclonal/polyclonal antibodies/oligonucleotide probes. Localization is made via biotin free immunoperoxidase method. Appropriate controls are performed and reacted as expected. Results on target cell population are indicated in the following table: RESULTS: ANTIBODY / CLONE RESULT P40 (BC28) positive Calponin-1 (IN549A) positive These tests were developed and their performance characteristics determined by [facility]. They may not have been cleared or approved by the U.S. Food and Drug Administration. The FDA has determined that such clearance or approval is not necessary. The above immunohistochemical/dualISH markers are ordered and reviewed by the Pathologist. INTERPRETATION: Left breast, deep upper outer quadrant, stereotactic biopsy: Negative for malignancy. MICHELLE:nichole 06/03/2021
--- NOTE | 2021-05-30 11:49 | HP.PCM_ITS ---
History and Physical Date of Admission: 05/30/21 Intake Visit Reasons: BIRADS 4 LEFT BREAST Chief Complaint: BIRADS 4 LEFT BREAST Cruise Staff Member Required: No Is patient in pain?: No Allergies No Known Allergies Allergy (Verified 05/28/21 13:32) anesthesia Adverse Reaction (Uncoded 08/02/20 14:21) Nausea & Vomiting Medications cholecalciferol (vitamin D3) 4,000 unit PO DAILY 07/05/16 [History Confirmed 05/28/21] chlorthalidone 25 mg PO DAILY 12/06/19 [History Confirmed 05/28/21] duloxetine 60 mg PO DAILY 12/06/19 [History Confirmed 05/28/21] levothyroxine 112 mcg tablet 112 mcg PO DAILY 08/02/20 [History Confirmed 05/28/21] metoprolol succinate 50 mg tablet,extended release 24 hr 50 mg PO DAILY #90 tablet 08/24/20 [Rx Confirmed 05/28/21] brimonidine 0.15 % eye drops 1 drp OPHTHALMIC BID ml 11/20/20 [History Confirmed 05/28/21] alendronate 70 mg tablet 70 mg PO QWEEK 05/28/21 [History Confirmed 05/28/21] biotin 1 mg capsule 1 mg PO DAILY 05/28/21 [History Confirmed 05/28/21] calcium carbonate 600 mg calcium (1,500 mg) tablet 1,200 mg PO DAILY tab 05/28/21 [History Confirmed 05/28/21] magnesium aspartate-potassium aspartate 250 mg-250 mg capsule cap PO DAILY cap 05/28/21 [History Confirmed 05/28/21] [facility] Medical History (Updated 05/28/21 @ 13:[address] Vince Adams MD) Abnormal mammogram of left breast Chest pain Depression Essential hypertension Family history of [place] (myocardial infarction) Hypothyroidism SVT (supraventricular tachycardia) WPW (Eeqbq-Skqrlftsm-Bawjr syndrome) Surgical History History of left heart catheterization (LHC) (~08/28/20) History of radiofrequency ablation procedure for cardiac arrhythmia (~2002) History of surgery on left wrist Family History Other Diabetes Heart disease Hypertension Myocardial infarction Social History (Reviewed 05/28/21 @ 13:31 by Kelli Perez Smoking Status: Never smoker alcohol intake: never substance use type: does not use caffeine: Yes Type: tea Number of servings: 6 HPI HPI HPI: BECKY GARZA, is a 70 F who presents to the office today for surgical consultation regarding her abnormal mammography. She is referred by Dr. Ana Lilia Parker and a written copy of my surgical consult recommendations will return to her. It is of note that on April 16, 2021 the patient had a positive COVID-19 test. She did require monoclonal antibody. She has been left with a chronic cough. She is hoping to see Dr. Vince Rausch in the near future pulmonology On May 10, 2021 the patient had bilateral screening mammography. There is a stable 8.9 mm well-defined nodule in the deep upper outer aspect of the left breast. This was compared to previous examination of December 15, 2019. BI-RADS Category 0. Ultrasound was recommended. On May 15, 2020 a diagnostic left mammogram and left breast ultrasound was obtained. On mammogram is stable 8.1 x 5.1 mm well-defined nodule in the deep upper outer aspect of the left breast was identified. The ultrasound did not demonstrate any abnormality. The study was interpreted as BI-RADS Category 4 with biopsy recommended. There was comment made that the item appeared to be consistent with an intramammary lymph node. 70-year-old female. G 3. Menarche at age 14. First child was born when she was 20. She did breast-feed. No previous breast biopsies. Family history negative for breast cancer. She is not been on any estrogen medication. ROS General General: No weight change, appetite, fatigue, colon cancer, breast cancer or weakness HEENT HEENT: No difficulty swallowing, eye injury, eye surgery, swollen glands or hoarseness Endo Endocrine: Yes thyroid disease; No diabetes mellitus, thyroid cancer, Hair loss, heat intolerance or cold intolerance Skin Skin: No rash or changing moles Breast Breast: Yes abnormal mammogram; No left breast lump, right breast lump, nipple discharge, breast pain, abnormal US or breast enlargement Musc Musculoskeletal: Yes arthritis; No back problems, rheumatoid arthritis, gout or joint pain Cardio Cardiovascular: Yes high blood pressure; No murmur, pacemaker, heart disease, atrial fibrillation, heart attack, heart stent, palpitations, shortness of breat with exertion or chest pain Additional Details: Ablation for WPW Psych Psychiatric: Yes depression; No anxiety or hearing voices Resp Respiratory: Yes shortness of breath, No sleep apnea, Yes cough, No COPD, No asthma, No emphysema and No wheezing Gastro Gastrointestinal: No abdominal pain, No nausea or vomiting, No diarrhea, No constipation, No blood in stool, No acid reflux, No hemorrhoids, No ulcers, No gallbladder problem and No black,tarry stools Vadim Hematologic: No blood thinners, No blood disorders, No bleeding, No anemia and No blood clots Neuro Neurologic: No system reviewed and no additional complaints, except as documented, No as per HPI, No abnormal gait, No abnormal hearing, No abnormal movements, No abnormal speech, No behavioral changes, No burning sensations, No confusion, No convulsions, No disequilibrium, No dizziness, No localized weakness, No frequent falls, No headache(s), No lack of coordination, No loss of vision, No memory loss, Yes numbness, No other visual disturbances, No radicular pain, No restless legs, No sensory deficit, No syncope, Yes tingling, No tremor(s), No weakness and No other Exam Chest Other: Right breast: No focal mass, no nipple discharge, no axillary clavicular adenopathy Left breast: No focal mass. No nipple discharge. No axillary clavicular adenopathy Assessment and Plan Assessment and Plan (1) Abnormal mammogram of left breast: Status: Inactive Plan - Dr. Vince Adams MD: 70-year-old female with an abnormal left mammogram with an 8 x 1 x 5.1 mm well- defined nodule upper outer aspect of the left breast. I recommended the patient is stereotactic needle core biopsy of this area and I discussed technique, benefit, risk, alternatives. She has had an opportunity to ask and have questions answered. We will schedule and proceed at her discretion. I very much appreciate the kind opportunity of assisting with her surgical care. Copy: Dr. Ana Lilia Adams M.D., F.A.C.S.
--- NOTE | 2021-05-30 12:45 | BRBX_PTH ---
PATIENT: BECKY GARZA LOC: [facility] U#:[id number] AGE/SX: 70/F ROOM: RE05/30/[address]: Dr. Vince Adams MD : 1950 BED: DIS: 05/30/2021 SPEC #: [id number] RECD: 05/30/21 13:15 STATUS: ETIENNE RUBIO #: [id number] BRUNO: 05/30/21 12:[address]: Vince Adams DEPT: SURGICAL PATHOLOGY RECD BY: Cheyenne Rodriguez ENTERED: 05/30/21 13:41 SP TYPE: BREAST BX OTHR DR: Dr. 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 Negative for atypia or malignancy. See comment. MICHELLE:nichole 05/31/2021 COMMENT Immunohistochemistry ([id number]) supports the above diagnosis. Correlation with clinical, radiologic findings and appropriate follow up are necessary. MICROSCOPIC DESCRIPTION Slides are reviewed. GROSS DESCRIPTION Received in fixative is one container labeled with the patient's name and designated left breast. The specimen consists of multiple irregular and elongated fragments of yellow-marshall soft tissue that in aggregate measure 5 x 3 x 0.2 cm. The specimen is totally submitted in two cassettes. / AM:nichole 05/30/21 TC:1 CPT: 55044
--- NOTE | 2021-05-30 12:55 | OP.PCM_ITS ---
Problems Associated Problem List Diagnoses (1) Abnormal mammogram of left breast: Report of Operation Date of Procedure: 05/30/21 Pre-Operative Diagnosis: Density upper outer quadrant left breast Post-Operative Diagnosis: Same Surgery/Procedure Performed:: Stereotactic needle core biopsy upper outer quadrant left breast Description of Surgical Findings:: Timeout informed consent was obtained. 70-year-old female was taken to the stereotactic room placed prone the table the left breast was placed in a lateral medial view the density in question was rapidly identified stereotactic images were obtained digital information was obtained on a single target site. The breast was prepped with Betadine. 1% lidocaine was used as a local anesthetic. A total of 10 cc was used. Local was instilled. A small stab incision was created. An 8 gauge resolved needle was advanced to prefire depth. Prefire films were obtained demonstrating adequate localization. The device was fired. 9 cores were obtained. A marking clip was left at 12 o'clock position. The specimens were immediately transferred to formalin for analysis. Specimen cores. Blood loss minimal. Drains none. The patient was released from the device pressure was held for hemostasis Steri- Strip Telfa OpSite dressing applied ice pack applied she was given activity wound care instructions No apparent complication Vince Adams M.D., F.A.C.S. Surgeon: Vince Adams Type of Anesthesia: Local
== END 2021-05-30 23:59 | disposition short-term general hospital (02) ==
PROVIDERS: PCP Internal Medicine; Visit Provider Surgery
DX: D24.2 Benign neoplasm of left breast (principal); I47.1 Supraventricular tachycardia; F32.A Depression, unspecified; I10 Essential (primary) hypertension; E03.9 Hypothyroidism, unspecified; Z79.899 Other long term (current) drug therapy; R92.8 Other abnormal and inconclusive findings on diagnostic imaging of breast
CPT/HCPCS: 19081; 88305; 88341; 88342; J7050

== ENCOUNTER → 2021-09-23 | Outpatient (CLI) | payer MEDICARE, SELFPAY ==
[2021-09-23 16:19] LABS: Hematocrit 44.1 % (37-47); Hemoglobin 14.6 g/dL (12.0-15.0); Mean Corp Hgb Conc 33.1 g/dL (32-36); Mean Corpuscular Hgb 28.1 pg (27.0-32.0); Mean Platelet Vol. 10.8 fl (6.2-12.0); Platelet Count 286 K/mm3 (150-450); RBC Distribution Width CV 12.7 % (11.6-14.6); RBC Distribution Width SD 39.4 fl (35.1-43.9); Red Blood Count 5.19 M/mm3 (4.2-5.4); White Blood Count 8.8 K/mm3 (4.4-11.0)
== END | disposition home or self-care (01) ==
LOC: LAB 15:55
PROVIDERS: PCP Internal Medicine; Referring Provider Internal Medicine Pulmonary Disease; Visit Provider Internal Medicine Pulmonary Disease
DX: U07.1 COVID-19 (principal); Z86.2 Personal history of diseases of the blood and blood-forming organs and certain disorders involving the immune mechanism
CPT/HCPCS: 36415; 85027

== ENCOUNTER 2022-03-11 20:59 | Emergency (ER) | payer MEDICARE, SELFPAY ==
[2022-03-11 21:00] VITALS: BP 164/92; PULSE 153; RESP 18; TEMP 36.1; O2SAT 100; BMI 28.3
[2022-03-11 21:19] VITALS: BP 115/69; PULSE 88; RESP 18; O2SAT 94
--- NOTE | 2022-03-11 21:23 | EKG12_ITS ---
Test Reason : REPEAT Blood Pressure : / mmHG Vent. Rate : 092 BPM Atrial Rate : 092 BPM P-R Int : 172 ms QRS Dur : 088 ms QT Int : 374 ms P-R-T Axes : 058 043 039 degrees QTc Int : 462 ms Normal sinus rhythm Normal ECG Confirmed by GERMAINE ROOT, SHIVANI ([id number]), metropolitan editor SHELLIE FITZPATRICK ([id number]) on 03/13/2022 12:39:32 PM Referred By: PL Confirmed By:SHIVANI HERRON MD
--- NOTE | 2022-03-11 21:48 | EKG12_ITS ---
Test Reason : PALPS Blood Pressure : / mmHG Vent. Rate : 156 BPM Atrial Rate : 000 BPM P-R Int : 000 ms QRS Dur : 166 ms QT Int : 292 ms P-R-T Axes : 000 059 027 degrees QTc Int : 470 ms Atrial fibrillation with rapid ventricular response Nonspecific ST and T wave abnormality Abnormal ECG Confirmed by GERMAINE ROOT, SHIVANI ([id number]), film and video editor SHELLIE FITZPATRICK ([id number]) on 03/13/2022 12:36:14 PM Referred By: PL Confirmed By:SHIVANI HERRON MD
[2022-03-11 21:58] LABS: Absolute Lymphocyte Count 2.26 X10^3/uL (0.83-4.51); Absolute Neutrophil Count 5.8 X10^3/uL (2.0-7.7); Basophil# 0.07 X10^3/uL; Basophil% 0.7 % (0-1); Eosinophil# 0.29 X10^3/uL; Hematocrit 42.2 % (37-47); Hemoglobin 14.2 g/dL (12.0-15.0); Lymphocyte # 2.26 X10^3/ul (0.83-4.51); Lymphocyte % 23.8 % (19-41); Mean Corp Hgb Conc 33.6 g/dL (32-36); Mean Corpuscular Hgb 28.3 pg (27.0-32.0); Mean Corpuscular Volume 84.2 fL (81-99); Monocyte# 1.05 X10^3/uL; NRBC Flagged by Analyzer 0 % (0-5); Neutrophil # 5.81 X10^3/uL (2.7-7.7); Neutrophil % 61.2 % (47-70); Platelet Count 311 K/mm3 (150-450); RBC Distribution Width CV 13.2 % (11.6-14.6); RBC Distribution Width SD 40.3 fl (35.1-43.9); Red Blood Count 5.01 M/mm3 (4.2-5.4); White Blood Count 9.5 K/mm3 (4.4-11.0)
--- NOTE | 2022-03-11 22:00 | RAD_ITS ---
STUDY: X-RAY CHEST REASON FOR EXAM: Female, 71 years old. Palpitations TECHNIQUE: PA and lateral views of the chest. COMPARISON: 05/02/2021 FINDINGS: The lungs are clear and expanded. There is no demonstrated pleural abnormality. Normal size heart. Normal mediastinum and sam. Normal visualized pulmonary arteries. Normal visualized aortic arch and descending thoracic aorta. There is no demonstrated abnormality of the visualized soft tissue structures of the upper abdomen. RAD/Chest PA and Lateral IMPRESSION: No acute abnormal cardiopulmonary finding. Electronically Signed: Jorge Alberto Lemus MD at 22:17 EDT ,
[2022-03-11 22:17] LABS: AST(SGOT) 21 U/L (15-37); Alanine Aminotransfer ALT/SGPT 27 U/L (13-56); Albumin, Serum 3.4 g/dL (3.2-5.0); Alkaline Phosphatase 76 U/L (45-117); Anion Gap 9 (5-15); BUN 22 mg/dL (7-18); BUN/Creat Ratio 24.2 RATIO (10-20); Chloride 103 mmol/L (98-107); Creatinine, Serum 0.91 mg/dL (0.55-1.02); EST Glomerular Filtration Rate 65 mL/min (>60); Est Glom Filt Rate - Afr Amer 78 mL/min (>60); Estimated Creatinine Clearance 44.85 ml/min; Globulin 3.3 g/dL (2.2-4.2); Glucose 139 mg/dL (74-106); Potassium 3.2 mmol/L (3.5-5.1); Protein, Total 6.7 g/dL (6.4-8.2); Sodium Level 137 mmol/L (136-145); Troponin-I HS 24 pg/mL (3.0-54.0)
--- NOTE | 2022-03-11 22:59 | ED.VIS.CHEST ---
HPI History of Present Illness Chief Complaint: Palpitations Informant: patient Onset/Context/Timing Onset: Today Activity at onset: sudden Timing: Intermittent Quality: Positive for - (Racing heartbeat) Worsened By: Nothing Relieved By: Nothing Associated Symptoms: Positive for Dyspnea, Cough and Palpitations; Negative for Nausea, Vomiting, Diaphoresis, Fever, Lightheadedness or Acid Reflux Narrative Narrative: Presents with palpitations that began today. Patient states it began rather suddenly. Patient states that it feels like her heart was beating fast. Patient admits to some mild shortness of breath and cough with this. Patient denies any nausea or vomiting. Patient denies any diaphoresis. Patient denies any recent fevers or chills. Patient denies any chest pain. Patient states nothing makes it better and nothing makes it worse. Patient states that she had a similar episode in the past and when she got to the emergency department she was back into a sinus rhythm and had no symptoms at that time. Patient states that at that time her potassium was low. [facility] Medical History Abnormal mammogram of left breast Cataract Chest pain COVID-19 (04/23/21) Depression Essential hypertension Family history of [place] (myocardial infarction) Hypothyroidism SVT (supraventricular tachycardia) WPW (Icbcc-Myfkwwjdf-Ygfeg syndrome) Home Medications cholecalciferol (vitamin D3) 50 mcg (2,000 unit) capsule 4,000 unit PO DAILY 07/05/16 [History Last Taken Unknown] chlorthalidone 25 mg tablet 25 mg PO DAILY 12/06/19 [History Last Taken Unknown] duloxetine 60 mg capsule,delayed release 60 mg PO DAILY 12/06/19 [History Last Taken Unknown] brimonidine 0.15 % eye drops 1 drp ophthalmic (eye) BID 11/20/20 [History Last Taken Unknown] alendronate 70 mg tablet 70 mg PO QWEEK 05/28/21 [History Last Taken Unknown] biotin 1 mg capsule 1 mg PO DAILY 05/28/21 [History Last Taken Unknown] calcium carbonate 600 mg calcium (1,500 mg) tablet 1,200 mg PO DAILY 05/28/21 [History Last Taken Unknown] metoprolol succinate 50 mg tablet,extended release 24 hr 50 mg PO DAILY #90 tabs 07/12/21 [Rx Last Taken Unknown] levothyroxine 112 mcg tablet (Synthroid) 112 mcg PO DAILY 12/13/21 [History Last Taken Unknown] magnesium aspartate-potassium aspartate 250 mg-250 mg capsule 1 cap PO DAILY 12/13/21 [History Last Taken Unknown] apixaban 5 mg tablet (Eliquis) 5 mg PO BID #74 tabs 03/11/22 [Rx Last Taken Unknown] Allergy/AdvReac Type Severity Reaction Status Date / Time No Known Allergies Allergy Verified 03/11/22 21:03 anesthesia AdvReac Nausea & Uncoded 03/11/22 21:03 Vomiting Family History Other Diabetes Heart disease Hypertension Myocardial infarction Surgical History History of left heart catheterization (LHC) (~08/28/20) History of radiofrequency ablation procedure for cardiac arrhythmia (~2002) History of surgery on left wrist Social History Smoking Status: Never smoker alcohol intake: never substance use type: does not use caffeine: Yes Type: tea Number of servings: 6 ROS ROS ED Constitutional Constitutional ED: Denies chills or fever(s) Eyes Eyes: Denies blurry vision or change in vision ENT ENT ED: Denies rhinorrhea or sore throat Cardiovascular Cardiovascular: Reports palpitations; Denies chest pain Respiratory/Chest Respiratory/Chest: Reports dyspnea; Denies cough Gastrointestinal Gastrointestinal: Denies nausea or vomiting Genitourinary Genitourinary ED: Denies dysuria or hematuria Musculoskeletal Musculoskeletal: Denies back pain or neck pain Integumentary Denies abscess or rash Neurologic Neurologic: Denies headache(s) or weakness Allergic/Immunologic Allergic/Immunologic ED: Denies mouth swelling or urticaria EXAM Physical Exam Const Vital Signs: 03/11/22 21:00 03/11/22 21:19 03/11/22 21:21 Temperature 97 F L Temperature Source Temporal Pulse Rate 153 H 88 Respiratory Rate 18 18 Respiratory Effort Normal Non-Labored Respiratory Pattern Normal Blood Pressure 164/92 H 115/69 Blood Pressure Mean 116 84 Pulse Ox 100 94 Oxygen Delivery Method Room Air Room Air 03/11/22 23:39 Temperature Temperature Source Pulse Rate 74 Respiratory Rate 15 Respiratory Effort Respiratory Pattern Blood Pressure 105/62 Blood Pressure Mean Pulse Ox 99 Oxygen Delivery Method Positive well nourished and well developed General Appearance ED: well developed HEENT Reports moist mucous membranes Neck supple and no JVD Resp normal respiratory effort and clear to auscultation bilaterally Cardio regular rate, regular rhythm and no murmurs GI normal to inspection, nondistended, normoactive bowel sounds and non-tender Palpation: soft Extremity normal to inspection General Extremety ED: Negative for edema or tenderness General Extremity: Negative for edema Neuro oriented x3, CN's II-XII intact bilaterally and no sensory deficits noted Sensorium / Orientation: alert Motor Exam: strength 5/5 throughout Psych mental status grossly normal Skin no rashes or lesions noted MDM MDM MDM Narrative Medical decision making narrative: EKG was obtained initially. On my interpretation, it showed atrial fibrillation with a rate of 156. QRS interval and QTc intervals were within normal limits. Gunlock was normal. There are nonspecific ST-T wave changes noted. When I walked into the room to examine the patient she was in a normal sinus rhythm on the monitor. Repeat EKG was obtained. On my interpretation it shows a normal sinus rhythm with a rate of 92. GA interval, QRS normal, QTC intervals are all within normal limits. Gunlock is normal. There are no acute ST or T wave changes. CBC was within normal limits. Comprehensive metabolic profile shows a potassium of 3.2 and a glucose of 139. The remainder was within normal limits. High-sensitivity troponin was normal at 24. PA and lateral chest x-ray was obtained. There are 2 views. On my interpretation, lung valero are clear. There is normal cardiac silhouette. Bony thorax is normal. There is no acute process noted. Radiologist also interpreted the x-ray and agrees. Patient is feeling better on reevaluation. Case was discussed with Dr. Valle. He recommended increasing the patient's metoprolol to 100 mg daily. He also recommended starting the patient on Eliquis for the paroxysmal atrial fibrillation. Patient was given a dose of potassium here. Patient was advised of the recommendations. She is agreeable with this. Patient was instructed to follow-up with her primary care physician as well as Dr. Valle in 5 to 7 days. Patient understood and was agreeable with the plan. All questions were answered. Lab Data Attestation: I reviewed the patient's lab results. Labs: Laboratory Results - last 24 hr 03/11/22 03/11/22 21:30 21:30 WBC 9.5 RBC 5.01 Hgb 14.2 Hct 42.2 MCV 84.2 MCH 28.3 MCHC 33.6 RDW Std Deviation 40.3 RDW Coeff of Luiza 13.2 Plt Count 311 MPV 11.0 Immature Gran % (Auto) 0.300 Neut % (Auto) 61.2 Lymph % (Auto) 23.8 Noble % (Auto) 11.0 H Eos % (Auto) 3.0 Baso % (Auto) 0.7 Absolute Neuts (auto) 5.8 Absolute Lymphs (auto) 2.26 Nucleated RBC % 0 Sodium 137 Potassium 3.2 L Chloride 103 Carbon Dioxide 25.0 Anion Gap 9 BUN 22 H Creatinine 0.91 Estim Creat Clear Calc 44.85 Est GFR (MDRD) Af Amer 78 Est GFR (MDRD) Non-Af 65 BUN/Creatinine Ratio 24.2 H Glucose 139 H Calcium 9.0 Total Bilirubin 0.40 AST 21 ALT 27 Alkaline Phosphatase 76 Troponin I High Sens 24 Total Protein 6.7 Albumin 3.4 Globulin 3.3 Albumin/Globulin Ratio 1.0 Radiography Chest X-Ray - ED: 2 View, Read by ED Physician, Read by Radiologist, Normal and No Acute Disease Diagnostic Testing: Clinical Impression(s) from Imaging Studies Chest X-Ray 03/11/22 22:00 IMPRESSION: No acute abnormal cardiopulmonary finding. Electronically Signed: Jorge Alberto Lemus MD at 22:17 EDT Reading Location ID and State: [facility] / [place] Tel , Service support , EKG Initial EKG: Attestation: I personally reviewed and interpreted this EKG as follows: Interpretation: Atrial Fibrillation (156) and Non-Specific ST Changes Prior EKG tracings: available for review Prior: Changed (Paired to EKG dated 08/02/2020, the atrial fibrillation and nonspecific ST-T wave changes are new.) Follow-up EKG: Attestation: I personally reviewed and interpreted this EKG as follows: Interpretation: Sinus Rhythm (92) and No Acute Injury Pattern Prior EKG tracings: available for review Prior: Unchanged (This EKG is unchanged compared to the EKG dated 08/02/2020) Discharge Plan Triage Chief Complaint: Palpitations ED Provider: Alonzo Rock Dx/Rx/DC Orders Clinical Impression: Paroxysmal atrial fibrillation, Hypokalemia Instructions: ED AFIB, ED Hypokalemia Prescriptions: New Eliquis 5 mg tablet 5 mg PO BID Qty: 74 0RF Rx Instructions: 10 mg twice a day for the first week. Then 5 mg twice a day. No Action levothyroxine [Synthroid] 112 mcg tablet 112 mcg PO DAILY alendronate 70 mg tablet 70 mg PO QWEEK biotin 1 mg capsule 1 mg PO DAILY magnesium, potassium aspartate 250-250 mg capsule 1 cap PO DAILY cholecalciferol (vitamin D3) 2,000 UNIT capsule 4,000 unit PO DAILY chlorthalidone 25 MG tablet 25 mg PO DAILY duloxetine 60 MG capsule 60 mg PO DAILY brimonidine 0.15 % drops 1 drp OPHTHALMIC BID calcium carbonate 600 mg calcium (1,500 mg) tablet 1,200 mg PO DAILY metoprolol succinate 50 mg tablet extended release 24 hr 50 mg PO DAILY Qty: 90 3RF Primary Care Provider: Ana Lilia Parker Referrals: Ana Lilia Parker DO [Primary Care Provider] - 3-5 Days Jorge Alberto Valle MD [Med Staff - Active Staff] - 5-7 Days Disposition Disposition: Home, Self Care Discharge Date/Time: 03/11/22 23:39
[2022-03-11] MEDS: Potassium Chloride Oral Tablet 20 MEQ 40 MEQ PO (23:34)
[2022-03-11] MEDS: APIXABAN 5 MG TABLET 10 MG PO (23:34)
[2022-03-11 23:39] VITALS: BP 105/62; PULSE 74; RESP 15; O2SAT 99
== END 2022-03-11 23:39 | disposition home or self-care (01) ==
PROVIDERS: Emergency Provider Emergency Medicine; PCP Internal Medicine; Visit Provider Emergency Medicine
DX: I48.0 Paroxysmal atrial fibrillation (principal); E87.6 Hypokalemia; R00.2 Palpitations; R06.02 Shortness of breath; I10 Essential (primary) hypertension
CPT/HCPCS: 71046; 80053; 84484; 85025; 93005; 99285; A4216

== ENCOUNTER 2022-05-03 01:24 | Observation (INO) | payer MEDICARE, SELFPAY ==
[2022-05-03] VITALS (17 sets, daily range): BP systolic 99–136; BP diastolic 49–88; PULSE 60–173; RESP 12–23; TEMP 35.6–36.9; O2SAT 94–99; BMI 29.0; BMI 28.3
--- NOTE | 2022-05-03 01:34 | EKG12_ITS ---
Test Reason : ARRYHTHMIA Blood Pressure : / mmHG Vent. Rate : 178 BPM Atrial Rate : 000 BPM P-R Int : 000 ms QRS Dur : 162 ms QT Int : 266 ms P-R-T Axes : 000 049 022 degrees QTc Int : 457 ms Atrial fibrillation with rapid ventricular response with premature ventricular or aberrantly conducte d complexes Non-specific intra-ventricular conduction block Minimal voltage criteria for LVH, may be normal variant ( Pilo product ) Abnormal ECG Confirmed by KANA ROOT, JUAN LUIS ([id number]), electronic news gathering editor SHELLIE FITZPATRICK ([id number]) on 05/06/2022 11:12:07 AM Referred By: Confirmed By:NERY ROGER MD
--- NOTE | 2022-05-03 01:35 | ED.VIS.CHEST ---
HPI History of Present Illness Chief Complaint: Palpitations Detail of Chief Complaint: History of A. fib RVR diagnosed in February. On Eliquis. Informant: patient Onset/Context/Timing Onset: Today and Hours Activity at onset: sudden Timing: Continuous Worsened By: Nothing Relieved By: Nothing Associated Symptoms: Positive for Palpitations; Negative for Nausea, Vomiting, Diaphoresis, Dyspnea, Cough, Fever, Lightheadedness or Acid Reflux Narrative Narrative: 71-year-old female history of hypertension diagnosed with A. fib in February had a prior history of Mpinq-Xkfplwnjq-Qdxjl and had a cardiac ablation in 2002 for that. Is on the blood thinner Eliquis for her A. fib and metoprolol. Tonight while at home sitting in bed watching a movie about 2 hours ago got accelerated heart rate. No significant chest discomfort. She denies recent illness. Prior Similar Symptoms: Yes Recent Illness/Hospitalization: No CVD Risk Factors: Negative for Diabetes PE Risk Factors: Negative for Recent Travel/Surgery, Recent Immobilization, Prior DVT or PE, Cancer or OCP + Smoking + >/=35 TAD Risk Factors: Negative for Marfan's Syndrome [facility] Medical History Abnormal mammogram of left breast Cataract Chest pain COVID-19 (04/23/21) Depression Essential hypertension Family history of [place] (myocardial infarction) Hypothyroidism Paroxysmal atrial fibrillation with RVR SVT (supraventricular tachycardia) WPW (Qvntm-Ajjwtzvlo-Mhbit syndrome) Home Medications cholecalciferol (vitamin D3) 50 mcg (2,000 unit) capsule 4,000 unit PO DAILY 07/05/16 [History Last Taken Unknown] chlorthalidone 25 mg tablet 25 mg PO DAILY 12/06/19 [History Last Taken Unknown] duloxetine 60 mg capsule,delayed release 60 mg PO DAILY 12/06/19 [History Last Taken Unknown] alendronate 70 mg tablet 70 mg PO QWEEK 05/28/21 [History Last Taken Unknown] calcium carbonate 600 mg calcium (1,500 mg) tablet 1,200 mg PO DAILY 05/28/21 [History Last Taken Unknown] levothyroxine 112 mcg tablet (Synthroid) 112 mcg PO DAILY 12/13/21 [History Last Taken Unknown] apixaban 5 mg tablet (Eliquis) 5 mg PO BID #60 tabs 03/19/22 [Rx Last Taken Unknown] brimonidine 0.2 % eye drops 1 drp ophthalmic (eye) BID 03/19/22 [History Last Taken Unknown] metoprolol succinate 100 mg tablet,extended release 24 hr 100 mg PO DAILY #30 tabs 03/19/22 [Rx Last Taken Unknown] prednisolone acetate 1 % eye drops,suspension 1 drp ophthalmic (eye) 4X/DAY 03/19/22 [History Last Taken Unknown] Allergy/AdvReac Type Severity Reaction Status Date / Time No Known Allergies Allergy Verified 03/19/22 13:06 anesthesia AdvReac Nausea & Uncoded 03/19/22 13:06 Vomiting Family History Other Diabetes Heart disease Hypertension Myocardial infarction Surgical History History of bilateral cataract extraction (~02/2022) History of left heart catheterization (LHC) (~08/28/20) History of radiofrequency ablation procedure for cardiac arrhythmia (~2002) History of surgery on left wrist Social History Smoking Status: Never smoker alcohol intake: never substance use type: does not use caffeine: Yes Type: tea Number of servings: 6 ROS ROS ED ROS Narrative Denies recent illness. Review of Systems ROS Unobtainable: Denies due to encephalopathy Constitutional Constitutional ED: Denies chills or fever(s) Eyes Eyes: Reports none ENT ENT ED: Denies ear pain, rhinorrhea or sore throat Cardiovascular Cardiovascular: Reports palpitations and racing heartbeat; Denies chest pain Respiratory/Chest Respiratory/Chest: Denies cough Gastrointestinal Gastrointestinal: Denies abdominal pain, constipation, diarrhea, melena, nausea or vomiting Genitourinary Genitourinary ED: Denies dysuria or hematuria Musculoskeletal Musculoskeletal: Denies arthralgias Integumentary Denies abscess Neurologic Neurologic: Denies headache(s) Psychiatric Psychiatric: Denies anxiety Endocrine Endocrinology: Denies cold intolerance Hematologic/Lymphatic Hematologic/Lymphatic: Denies easy bleeding Allergic/Immunologic Allergic/Immunologic ED: Denies mouth swelling or tongue swelling EXAM Physical Exam Narrative Exam Narrative: This 61-year-old female resting comfortably in bed with a heart rate of 116 the 6. Blood pressure 136/74. Pulse ox 94% on room air no hypoxia. Afebrile. Does not look septic or toxic. H EENT exam unremarkable atraumatic. Neck nontender no JVD. Lungs clear to auscultation. Heart tachycardic irregularly irregular rate of 166. Abdomen soft nontender normal bowel sounds no peritoneal signs. Moving all 4 extremities. Calves are nontender without edema or cords. Neurologically she is awake and alert with no focal motor deficits. Const Vital Signs: 05/03/22 01:26 05/03/22 01:29 05/03/22 01:39 Temperature 96.0 F L 96.0 F L Temperature Source Temporal Temporal Pulse Rate 164 H 173 H Respiratory Rate 18 18 Blood Pressure 136/74 H 136/74 H Blood Pressure Mean 94 94 Pulse Ox 94 94 94 Oxygen Delivery Method Room Air Room Air Room Air Positive well nourished, well developed and unkempt; Negative for obese, cachectic or contractures General Appearance ED: unkempt and well developed; Negative for cachectic, contractures, NAD or pallor Nutritional Appearance: Negative for cachectic or obese HEENT Reports moist mucous membranes; Denies dry mucous membranes normocephalic and atraumatic; Negative for trauma or tenderness Mouth ED: No dry mucous membranes Mouth: No dry mucous membranes Eyes EOMs intact bilaterally General Eye ED: Negative for pale conjunctiva or scleral icterus Neck no lymphadenopathy, supple and no JVD General: Negative for tenderness Chest Wall inspection of chest normal and palpation of chest normal Chest: Negative for tenderness Resp normal respiratory effort and clear to auscultation bilaterally Effort and Inspection: Negative for respiratory distress Auscultation: Negative for rales, rhonchi or wheezes Cardio S1 normal heart sound, S2 normal heart sound and no murmurs; Negative for regular rate or regular rhythm Rate: tachycardic; Negative for bradycardia Rhythm: abnormal rhythm GI normal to inspection, nondistended, normoactive bowel sounds, soft to palpation, non-tender, non-distended and no masses Auscultation: Negative for hyperactive bowel sounds Palpation: Negative for splenomegaly or mass Back/Spine no CVA tenderness General Back: Negative for CVA tenderness Extremity normal to inspection General Extremety ED: Negative for edema or pulses abnormal General Extremity: Negative for edema or pulses abnormal Neuro oriented x3 and CN's II-XII intact bilaterally Sensorium / Orientation: awake, alert, oriented to person, oriented to place and oriented to time; Negative for confused, lethargic or stuporous Motor Exam: strength 5/5 throughout; Negative for general weakness Psych mental status grossly normal Appearance: unkempt Attitude: No agitated Mood & Affect: Negative for depressed, anxious or tearful Skin no rashes or lesions noted and no wounds General Skin Exam: Negative for jaundice or pallor Rashes: No rashes noted Trauma: Negative for abrasion or laceration MDM MDM MDM Narrative Medical decision making narrative: 71-year-old with history of A. fib on Eliquis. Has A. fib RVR which started around 2 hours ago. She will be treated with IV Cardizem 25 mg. Undergo cardiac work-up. Repeat exam after the initial IV bolus of Cardizem 25 mg patient's heart rate improved but currently she remains in A. fib between 110 and 140 bpm. She will be started on a Cardizem drip. I will speak with the hospitalist about admission. Patient will also be given both oral and IV potassium due to her hypokalemia. Lab Data Attestation: I reviewed the patient's lab results. Lab results narrative: CBC shows a white count of 10.1. H&H of 14.6 and 44. Platelets 313. Chemistries show potassium of 2.7 show be treated with IV and oral potassium. Gap is 7. BUN 23 creatinine 0.8. Initial troponin 17. Labs: Laboratory Results - last 24 hr 05/03/22 05/03/22 01:40 01:40 WBC 10.1 RBC 5.18 Hgb 14.6 Hct 44.5 MCV 85.9 MCH 28.2 MCHC 32.8 RDW Std Deviation 40.8 RDW Coeff of Luiza 13.0 Plt Count 313 MPV 10.8 Immature Gran % (Auto) 0.200 Neut % (Auto) 59.7 Lymph % (Auto) 27.8 [place] % (Auto) 9.4 Eos % (Auto) 2.3 Baso % (Auto) 0.6 Absolute Neuts (auto) 6.0 Absolute Lymphs (auto) 2.80 Nucleated RBC % 0 Sodium 139 Potassium 2.7 L* Chloride 104 Carbon Dioxide 28.0 Anion Gap 7 BUN 23 H Creatinine 0.85 Estim Creat Clear Calc 45.81 Est GFR (MDRD) Af Amer 84 Est GFR (MDRD) Non-Af 70 BUN/Creatinine Ratio 27.0 H Glucose 173 H Calcium 9.1 Troponin I High Sens 17 Radiography Chest X-Ray - ED: 1 View, Read by ED Physician, Heart, Mediastinum, Bony Structures and Chronic Changes Diagnostic Testing: Clinical Impression(s) from Imaging Studies Chest X-Ray 05/03/22 01:49 IMPRESSION: Bilateral lower lobe airspace disease. Findings may indicate pneumonia. Electronically Signed: Buddy Frances MD at 2:07 EST , Normal cardiac silhouette and mediastinum. Either atelectasis or possibly basilar congestion in both bases. Rhythm Strip Rhythm Strip: A-fib Rate: 178 Ectopy: None EKG Initial EKG: Attestation: I personally reviewed and interpreted this EKG as follows: Interpretation: Atrial Fibrillation Comments: Atrial fibrillation with rapid ventricular rate 178. Intraventricular conduction delay. Rate dependent ischemia with ST depression throughout. Critical Care Time Critical Care Time: Yes Critical care time (excluding procedures): 30-74 minutes, Including time spent:, Discussing w/Patient &/or Family/Manufacturing Controller, Discussing w/Consultants, Arranging Admission or Transfer, Performing Direct Patient Care at Bedside and - (33 minutes) Discharge Plan Dx/Rx/DC Orders Clinical Impression: Atrial fibrillation with rapid ventricular response, History of Wnbwv-Gqaaxbzes-Kzdmw (WPW) syndrome, History of cardiac radiofrequency ablation, Chronic anticoagulation, Acute hypokalemia Disposition Disposition: Acute Care Hospital [facility]
[2022-05-03] MEDS: dilTIAZem 25 MG/5 ML Vial IV BOLUS (01:42)
[2022-05-03 01:46] LABS: Basophil# 0.06 X10^3/uL; Basophil% 0.6 % (0-1); Eosinophil# 0.23 X10^3/uL; Eosinophils% 2.3 % (0-5); Hematocrit 44.5 % (37-47); Hemoglobin 14.6 g/dL (12.0-15.0); Lymphocyte % 27.8 % (19-41); Mean Corp Hgb Conc 32.8 g/dL (32-36); Mean Corpuscular Hgb 28.2 pg (27.0-32.0); Mean Corpuscular Volume 85.9 fL (81-99); Mean Platelet Vol. 10.8 fl (6.2-12.0); Monocyte# 0.95 X10^3/uL; Monocyte% 9.4 % (0-10); NRBC Flagged by Analyzer 0 % (0-5); Neutrophil # 6.02 X10^3/uL (2.7-7.7); Neutrophil % 59.7 % (47-70); Platelet Count 313 K/mm3 (150-450); RBC Distribution Width SD 40.8 fl (35.1-43.9); Red Blood Count 5.18 M/mm3 (4.2-5.4); White Blood Count 10.1 K/mm3 (4.4-11.0)
--- NOTE | 2022-05-03 01:49 | RAD_ITS ---
EXAM: XR CHEST, 1 VIEW CLINICAL INDICATION: chest pain TECHNIQUE: Frontal view of the chest. This report was created using [employer] report generation technology. COMPARISON: 03/11/2022 FINDINGS: LUNGS AND PLEURAL SPACES: Bilateral lower lobe airspace disease. No pneumothorax. No effusion. HEART: Unremarkable. Cardiac silhouette not enlarged. MEDIASTINUM: Central airways and mediastinal contour are unremarkable. BONES/JOINTS: Unremarkable. SOFT TISSUES: Unremarkable. RAD/Chest 1 View (Portable) IMPRESSION: Bilateral lower lobe airspace disease. Findings may indicate pneumonia. Electronically Signed: Buddy Frances MD at 2:07 EST ,
[2022-05-03 02:12] LABS: Anion Gap 7 (5-15); BUN 23 mg/dL (7-18); Calcium,Total 9.1 mg/dL (8.5-10.1); Chloride 104 mmol/L (98-107); Creatinine, Serum 0.85 mg/dL (0.55-1.02); EST Glomerular Filtration Rate 70 mL/min (>60); Est Glom Filt Rate - Afr Amer 84 mL/min (>60); Estimated Creatinine Clearance 45.81 ml/min; Glucose 173 mg/dL (74-106); Potassium 2.7 mmol/L (3.5-5.1); Sodium Level 139 mmol/L (136-145); Troponin-I HS (w/2H Reflex) 17 pg/mL (3.0-54.0)
--- NOTE | 2022-05-03 02:28 | PCM.HP.STD ---
HPI - General General Date of Admission: 05/03/22 Date of Service: 05/03/22 Chief Complaint: Palpitations HPI Narrative BECKY GARZA, is a 71 F with a significant history of hypertension; A. fib (diagnosed in February 2022); Lgidn-Ojudnifac-Mjqjo syndrome status post ablation who presents to the emergency department with palpitations that started while patient was watching TV. Because her symptoms persisted she came to the emergency department. At the emergency department patient was found to be in A. fib with RVR. He denies any symptoms of chest pain or shortness of breath. [facility] Medical History Abnormal mammogram of left breast Cataract Chest pain COVID-19 (04/23/21) Depression Essential hypertension Family history of [place] (myocardial infarction) Hypothyroidism Paroxysmal atrial fibrillation with RVR SVT (supraventricular tachycardia) WPW (Negnk-Wwvpnlujv-Czlcz syndrome) Home Medications cholecalciferol (vitamin D3) 50 mcg (2,000 unit) capsule 4,000 unit PO DAILY 07/05/16 [History Last Taken Unknown] chlorthalidone 25 mg tablet 25 mg PO DAILY 12/06/19 [History Last Taken Unknown] duloxetine 60 mg capsule,delayed release 60 mg PO DAILY 12/06/19 [History Last Taken Unknown] alendronate 70 mg tablet 70 mg PO QWEEK 05/28/21 [History Last Taken Unknown] calcium carbonate 600 mg calcium (1,500 mg) tablet 1,200 mg PO DAILY 05/28/21 [History Last Taken Unknown] levothyroxine 112 mcg tablet (Synthroid) 112 mcg PO DAILY 12/13/21 [History Last Taken Unknown] apixaban 5 mg tablet (Eliquis) 5 mg PO BID #60 tabs 03/19/22 [Rx Last Taken Unknown] brimonidine 0.2 % eye drops 1 drp ophthalmic (eye) BID 03/19/22 [History Last Taken Unknown] metoprolol succinate 100 mg tablet,extended release 24 hr 100 mg PO DAILY #30 tabs 03/19/22 [Rx Last Taken Unknown] prednisolone acetate 1 % eye drops,suspension 1 drp ophthalmic (eye) 4X/DAY 03/19/22 [History Last Taken Unknown] Allergy/AdvReac Type Severity Reaction Status Date / Time No Known Allergies Allergy Verified 03/19/22 13:06 anesthesia AdvReac Nausea & Uncoded 03/19/22 13:06 Vomiting Family History Other Diabetes Heart disease Hypertension Myocardial infarction Surgical History History of bilateral cataract extraction (~02/2022) History of left heart catheterization (LHC) (~08/28/20) History of radiofrequency ablation procedure for cardiac arrhythmia (~2002) History of surgery on left wrist Social History Smoking Status: Never smoker alcohol intake: never substance use type: does not use caffeine: Yes Type: tea Number of servings: 6 Vital Signs Vital Signs Vital Signs: 05/03/22 01:26 05/03/22 01:29 05/03/22 01:39 Temperature 96.0 F L 96.0 F L Temperature Source Temporal Temporal Pulse Rate 164 H 173 H Respiratory Rate 18 18 Blood Pressure 136/74 H 136/74 H Blood Pressure Mean 94 94 Pulse Ox 94 94 94 Oxygen Delivery Method Room Air Room Air Room Air Weight Weight: 69.6 kg Body Mass Index (BMI) 29.0 Physical Exam Narrative Physical exam: General: Well-nourished, well-developed. Head: Normocephalic, atraumatic, no tenderness Eyes: Vision is grossly intact. EOMI ENT, no trauma, moist mucous membranes, no rhinorrhea Neck: Nontender, No thyromegaly. CVS: Tachycardia, irregularly irregular rate and rhythm. S1-S2 present. No murmur, gallop or rub. Respiratory : clear to auscultation bilaterally, chest wall nontender, no wheezing Abdomen: Soft, nontender, nondistended, normal bowel sounds, no masses : Deferred Back: Nontender, no CVA tenderness. Extremities: Nontender full range of motion, no trauma Skin: Normal color, no trauma, abrasions Neuro: Alert, oriented, cranial nerves II through XII grossly intact. Psychiatry: Normal mood. Normal affect. Not depressed. Not anxious. Results Lab / Micro Data Result Diagrams: 05/03/22 01:40 05/03/22 01:40 Labs: Laboratory Results - last 24 hr 05/03/22 01:40: WBC 10.1, RBC 5.18, Hgb 14.6, Hct 44.5, MCV 85.9, MCH 28.2, MCHC 32.8, RDW Std Deviation 40.8, RDW Coeff of Luiza 13.0, Plt Count 313, MPV 10.8, Immature Gran % (Auto) 0.200, Neut % (Auto) 59.7, Lymph % (Auto) 27.8, [place] % (Auto) 9.4, Eos % (Auto) 2.3, Baso % (Auto) 0.6, Absolute Neuts (auto) 6.0, Absolute Lymphs (auto) 2.80, Nucleated RBC % 0 05/03/22 01:40: Sodium 139, Potassium 2.7 L*, Chloride 104, Carbon Dioxide 28.0, Anion Gap 7, BUN 23 H, Creatinine 0.85, Estim Creat Clear Calc 45.81, Est GFR (MDRD) Af Amer 84, Est GFR (MDRD) Non-Af 70, BUN/Creatinine Ratio 27.0 H, Glucose 173 H, Calcium 9.1, Troponin I High Sens 17 Rhythm Strip Rhythm Strip: A-fib Rate: 178 Ectopy: None Radiology Impression Chest X-Ray 05/03/22 01:49 IMPRESSION: Bilateral lower lobe airspace disease. Findings may indicate pneumonia. Electronically Signed: Buddy Frances MD at 2:07 EST Reading Location ID and State: [address] [place] [address] Tel , Service support , Assessment & Plan Assessment/Plan (1) Atrial fibrillation with rapid ventricular response: (2) Hypercoagulability due to atrial fibrillation: PLAN: Plan A. fib with RVR/hypercoagulability secondary to A. 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 fib with RVR. Chest x-ray image was visualized and independently interpreted. Bilateral opacities seen. I agree with radiologist interpretation. However no clinical symptoms of pneumonia. Metoprolol and Eliquis continued. Received Cardizem bolus at emergency department and started on drip. Cardizem drip continued Obtain echo Chest x-ray Consult [facility] Recheck the labs in the a.m. including a lipid panel. Hypokalemia Potassium level of 2.7 the emergency department. Received p.o. and IV replacement. Trend BMP. Check magnesium. Hypertension Blood pressure is not within goal Cardizem drip as above. Resume home antihypertensive medications. Trend blood pressure and adjust blood pressure medications. DVT prophylaxis Subcutaneous Lovenox ordered. Charges/Coding Visit Charges Inpatient E&M: 73423 Init Hosp L3
[2022-05-03] MEDS: Potassium Chloride 10mEq/100mL 10 MEQ/100 ML IV.SOLN. 100 MEQ IV BOLUS ×2 (02:56→03:59)
[2022-05-03] MEDS: Potassium Chloride Oral Tablet 20 MEQ 40 MEQ PO (03:02)
--- NOTE | 2022-05-03 03:41 | ECHOD_ITS ---
Reason For Study: ATRIAL FIB Procedure This was a 2D Doppler, Color Flow transthoracic echocardiogram. Exam performed portable in patient room. Left Ventricle Normal LV size. The estimated ejection fraction is 75 %. Left ventricular systolic function is hyperdynamic. No evidence for diastolic dysfunction. No regional wall motion abnormalities noted. Right Ventricle Normal RV size. Normal systolic function. Atria Normal left atrium. Normal right atrium. No doppler evidence for ASD. Mitral Valve There is no mitral valve stenosis. Trivial mitral valve insufficiency. Tricuspid Valve There is no tricuspid stenosis. Trivial tricuspid valve insufficiency. Unable to estimate RV systolic pressure due to insufficient tricuspid regurgitant envelope. Aortic Valve Trisinus/trileaflet aortic valve. There is no aortic stenosis. No aortic valve insufficiency. Pulmonic Valve There is no pulmonic valvular stenosis. No pulmonic valve insufficiency. Great Vessels Normal aortic root. Pericardium/Pleural No pericardial effusion. MMode/2D Measurements & Calculations LVIDd: 4.0 cm IVSd: 0.71 cm Ao root diam: 3.5 cm LVIDs: 2.0 cm LVPWd: 0.89 cm FS: 49.2 % LAV(MOD-bp): 49.1 ml LVAd ap4: 23.4 cm2 SV(MOD-sp4): 41.8 ml LAV(MOD-bp) Indexed: 29.0 ml/m2 LVLd ap4: 7.5 cm LAV(MOD-sp2): 49.4 ml EDV(MOD-sp4): 59.7 ml LAV(MOD-sp4): 41.2 ml EDV(sp4-el): 62.2 ml LVAs ap4: 9.9 cm2 LVLs ap4: 5.1 cm ESV(MOD-sp4): 17.9 ml ESV(sp4-el): 16.5 ml EF(MOD-sp4): 70.0 % EF(sp4-el): 73.5 % SV(sp4-el): 45.7 ml LA A4 area: 15.5 cm2 LA dimension(2D): 3.9 cm RA A4 area: 12.8 cm2 Time Measurements MV dec time: 0.29 sec Doppler Measurements & Calculations MV E max [place]go: 99.1 cm/sec Lat Peak E' Diego: 10.2 cm/sec Med Peak E' Diego: 10.4 cm/sec MV A max [place]go: 76.5 cm/sec E/E' lat: 9.7 E/E' med: 9.5 MV E/A: 1.3 MV V2 max: 144.0 cm/sec Ao V2 max: 153.2 cm/sec MV max P.3 mmHg MV dec slope: 353.8 cm/sec2 Ao max P.4 mmHg MV V2 mean: 72.7 cm/sec Ao V2 mean: 106.3 cm/sec MV mean P.6 mmHg Ao mean P.2 mmHg MV V2 VTI: 35.6 cm Ao V2 VTI: 36.2 cm AV (velocity ratio): 1.00 LV V1 max: 137.2 cm/sec PA V2 max: 86.1 cm/sec TR max diego: 269.7 cm/sec LV V1 max P.5 mmHg PA V2 mean: 61.0 cm/sec TR max P.1 mmHg LV V1 mean P.2 mmHg LV V1 mean: 108.1 cm/sec LV V1 VTI: 36.0 cm ECHO/Echo Complete Interpretation Summary The estimated ejection fraction is 75 %. No evidence for diastolic dysfunction. Trivial mitral valve insufficiency. Ordering Physician: Donte Anglin Referring Physician: Ana Lilia Parker M.D. Performed By: Roxi Prather RCS
[2022-05-03 03:44] LABS: Reflex Troponin-HS? (from REC) Y
[2022-05-03 04:14] LABS: Absolute Lymphocyte Count 1.59 X10^3/uL (0.83-4.51); Basophil# 0.05 X10^3/uL; Basophil% 0.6 % (0-1); Eosinophils% 1.1 % (0-5); Hematocrit 41.1 % (37-47); Hemoglobin 13.8 g/dL (12.0-15.0); Lymphocyte # 1.59 X10^3/ul (0.83-4.51); Lymphocyte % 17.8 % (19-41); Mean Corp Hgb Conc 33.6 g/dL (32-36); Mean Corpuscular Hgb 28.5 pg (27.0-32.0); Mean Corpuscular Volume 84.9 fL (81-99); Mean Platelet Vol. 10.6 fl (6.2-12.0); Monocyte# 1.12 X10^3/uL; Monocyte% 12.6 % (0-10); NRBC Flagged by Analyzer 0 % (0-5); Neutrophil # 6.02 X10^3/uL (2.7-7.7); Neutrophil % 67.6 % (47-70); Platelet Count 284 K/mm3 (150-450); RBC Distribution Width CV 13.1 % (11.6-14.6); RBC Distribution Width SD 40.7 fl (35.1-43.9); Red Blood Count 4.84 M/mm3 (4.2-5.4); White Blood Count 8.9 K/mm3 (4.4-11.0)
[2022-05-03 04:35] LABS: Troponin-I HS 37 pg/mL (3.0-54.0)
[2022-05-03 04:48] LABS: Anion Gap 6 (5-15); BUN 21 mg/dL (7-18); Calcium,Total 8.3 mg/dL (8.5-10.1); Chloride 105 mmol/L (98-107); Creatinine, Serum 0.64 mg/dL (0.55-1.02); EST Glomerular Filtration Rate 98 mL/min (>60); Est Glom Filt Rate - Afr Amer 118 mL/min (>60); Estimated Creatinine Clearance 40.81 ml/min; Glucose 112 mg/dL (74-106); Potassium 3.7 mmol/L (3.5-5.1); Sodium Level 138 mmol/L (136-145); Thyroid Stim Hormone (TSH) 0.49 uIU/mL (0.358-3.74)
[2022-05-03] MEDS: CLARIFY ORDER NOTE (05:42)
[2022-05-03] MEDS: Levothyroxine 112 MCG Tablet PO (05:55)
--- NOTE | 2022-05-03 05:55 | EKG12_ITS ---
Test Reason : rhythm change Blood Pressure : / mmHG Vent. Rate : 068 BPM Atrial Rate : 068 BPM P-R Int : 154 ms QRS Dur : 072 ms QT Int : 434 ms P-R-T Axes : 063 024 053 degrees QTc Int : 461 ms Normal sinus rhythm Normal ECG When compared with ECG of 03-MAY-2022 01:27, MANUAL COMPARISON REQUIRED, DATA IS UNCONFIRMED Confirmed by GALDINO ROOT, GIANLUCA ([id number]), design editor SHELLIE FITZPATRICK ([id number]) on 05/06/2022 11:29:48 AM Referred By: Confirmed By:GIANLUCA AHMADI MD
[2022-05-03] MEDS: Metoprolol Tartrate 25 MG Tablet 12.5 MG PO (05:58)
--- NOTE | 2022-05-03 07:57 | PCM.PN.HOSP ---
Subjective Subjective Feels well. No palpitations. States that she has been compliant with her medications but this week he has been extremely hard for her as she was with her friend, who is chronically ill but went into cardiac arrest and 2 days later. She has been emotionally distressed due to that but also several other people that she knows have had issues this past year. Objective Data Objective Data Vital Signs: Vital Signs Temp Pulse Resp BP Pulse Ox O2 Del Method 36.9 C 60 16 117/62 99 Room Air 05/03/22 04:14 05/03/22 06:43 05/03/22 05:15 05/03/22 05:58 05/03/22 05:15 05/03/22 05:15 Oxygen Delivery Method Room Air Weight: 70.4 kg Body Mass Index (BMI) 28.3 Intake & Output: Intake and Output for Last 24 Hours 05/01/22 05/02/22 05/03/22 23:59 23:59 23:59 Intake Total 214.50 / 214.50 Balance 214.50 / 214.50 Lab / Micro Data Result Diagrams: 05/03/22 04:06 05/03/22 04:06 Labs: Laboratory Results - last 24 hr 05/03/22 01:40: WBC 10.1, RBC 5.18, Hgb 14.6, Hct 44.5, MCV 85.9, MCH 28.2, MCHC 32.8, RDW Std Deviation 40.8, RDW Coeff of Luiza 13.0, Plt Count 313, MPV 10.8, Immature Gran % (Auto) 0.200, Neut % (Auto) 59.7, Lymph % (Auto) 27.8, [place] % (Auto) 9.4, Eos % (Auto) 2.3, Baso % (Auto) 0.6, Absolute Neuts (auto) 6.0, Absolute Lymphs (auto) 2.80, Nucleated RBC % 0 05/03/22 01:40: Sodium 139, Potassium 2.7 L*, Chloride 104, Carbon Dioxide 28.0, Anion Gap 7, BUN 23 H, Creatinine 0.85, Estim Creat Clear Calc 45.81, Est GFR (MDRD) Af Amer 84, Est GFR (MDRD) Non-Af 70, BUN/Creatinine Ratio 27.0 H, Glucose 173 H, Calcium 9.1, Troponin I High Sens 17 05/03/22 04:06: WBC 8.9, RBC 4.84, Hgb 13.8, Hct 41.1, MCV 84.9, MCH 28.5, MCHC 33.6, RDW Std Deviation 40.7, RDW Coeff of Luiza 13.1, Plt Count 284, MPV 10.6, Immature Gran % (Auto) 0.300, Neut % (Auto) 67.6, Lymph % (Auto) 17.8 L, [place] % (Auto) 12.6 H, Eos % (Auto) 1.1, Baso % (Auto) 0.6, Absolute Neuts (auto) 6.0, Absolute Lymphs (auto) 1.59, Nucleated RBC % 0 05/03/22 04:06: Sodium 138, Potassium 3.7, Chloride 105, Carbon Dioxide 27.0, Anion Gap 6, BUN 21 H, Creatinine 0.64, Estim Creat Clear Calc 40.81, Est GFR (MDRD) Af Amer 118, Est GFR (MDRD) Non-Af 98, BUN/Creatinine Ratio 33.0 H, Glucose 112 H, Calcium 8.3 L, TSH 0.49 05/03/22 04:06: Troponin I High Sens 37 Radiography Diagnostic Testing: Radiology Impression Chest X-Ray 05/03/22 01:49 IMPRESSION: Bilateral lower lobe airspace disease. Findings may indicate pneumonia. Electronically Signed: Buddy Frances MD at 2:07 EST Reading Location ID and State: [address] [place] [address] Tel , Service support , Rhythm Strip Rhythm Strip: A-fib Rate: 178 Ectopy: None Physical Exam Const alert and no apparent distress HEENT head/scalp atraumatic Resp normal respiratory effort, no retractions, no use of accessory muscles and clear to auscultation bilaterally Cardio regular rate, regular rhythm, S1 normal heart sound and S2 normal heart sound GI normal to inspection, nondistended, normoactive bowel sounds Assessment & Plan Assessment/Plan (1) Atrial fibrillation with rapid ventricular response: PLAN: A. fib with RVR EKG and cardiac monitor technician reviewed showed A. fib with RVR. Chest x-ray image was visualized and independently interpreted. Bilateral opacities seen. I agree with radiologist interpretation. However no clinical symptoms of pneumonia. Metoprolol and Eliquis continued. Received Cardizem bolus at emergency department and started on drip. Cardizem drip continued Echo shows an EF of 75%. Patient has since converted to normal sinus rhythm. Patient has been stable on metoprolol succinate. Patient has been emotionally distressed this week after her friend and previously witnessed her going to cardiac arrest. No change therapy. Recommend outpatient cardiac follow-up. (2) Acute hypokalemia: PLAN: Resolved Potassium level of 2.7 the emergency department. Received p.o. and IV replacement. Trend BMP. Check magnesium. PLAN: Plan Hypertension: blood pressure is not within goal Resume home antihypertensive medications. Trend blood pressure and adjust blood pressure medications. Discharge home. Continue with her chronic medications.
[2022-05-03] MEDS: Chlorthalidone 50 MG Tablet 25 MG PO (09:44)
[2022-05-03] MEDS: APIXABAN 5 MG TABLET PO (09:44)
[2022-05-03] MEDS: Cholecalciferol (VIT D3) 25 MCG TABLET (1,000 UNITS) 100 MCG PO (09:45)
[2022-05-03] MEDS: DULoxetine Hcl 60 MG Capsule PO (09:45)
[2022-05-03] MEDS: Metoprolol(XL)Succ 100 MG Tablet PO (09:45)
--- NOTE | 2022-05-03 10:45 | CASEMGMT ---
JOHN DEAL Assessment: Face to Face with pt for initial transition planning/care coordination assessment. RN SAY introduced self and role at [facility], pt voices understanding and consents to assessment. Pt is A/O x4 and answers all questions appropriately at this time. Pt sitting up in bed in no distress. Care providers, pharmacy, and demographics verified/updated. Admitting Dx: afib with RVR PCP:Keith Specialists:Leonard, cardio; Edwin, opt; Miracle, pulm; Pablo, psych [facility] Prescription Benefit: yes LNOK: Shannan Coombs dtr Living Arrangements: Pt lives alone in a two story house with one step to enter. Pt reports she uses the main level only. Pt is I in ADL's and denies concerns at home. Transportation: Pt drives self and denies concerns with transportation. DME/HHC/SNF: Pt denies having any DME, previous HHC or SNF stays. Pt states no concerns with going home at time of dc. Pt states no further concerns/needs. CM to follow. Advised pt to ask CM if any further question/concerns/needs arise, voices understanding. Pt Goal: Home Plan: Home
--- NOTE | 2022-05-03 12:52 | DS.PCM_ITS ---
Providers Date of Admission: 05/03/22 Primary Care Physician: Dr. Ana Lilia Parker DO Reason For Visit: AFIB WITH RVR Diagnosis Discharge Diagnosis (1) Atrial fibrillation with rapid ventricular response: Status: Acute Code(s): I48.91 - Unspecified atrial fibrillation Plan: A. fib with RVR EKG and camp assistant reviewed showed A. fib with RVR. Chest x-ray image was visualized and independently interpreted. Bilateral opacities seen. I agree with radiologist interpretation. However no clinical symptoms of pneumonia. Metoprolol and Eliquis continued. Received Cardizem bolus at emergency department and started on drip. Cardizem drip continued Echo shows an EF of 75%. Patient has since converted to normal sinus rhythm. Patient has been stable on metoprolol succinate. Patient has been emotionally distressed this week after her friend and previously witnessed her going to cardiac arrest. No change therapy. Recommend outpatient cardiac follow-up. (2) Acute hypokalemia: Status: Acute Code(s): E87.6 - Hypokalemia Plan: Resolved Potassium level of 2.7 the emergency department. Received p.o. and IV replacement. Trend BMP. Check magnesium. Plan Hypertension: blood pressure is not within goal Resume home antihypertensive medications. Trend blood pressure and adjust blood pressure medications. Discharge home. Continue with her chronic medications. Medications at Discharge Home Medications cholecalciferol (vitamin D3) 50 mcg (2,000 unit) capsule 4,000 unit PO DAILY vitamin 07/05/16 chlorthalidone 25 mg tablet 25 mg PO DAILY blood pressure 12/06/19 duloxetine 60 mg capsule,delayed release 60 mg PO DAILY depression 12/06/19 alendronate 70 mg tablet 70 mg PO QHS osteoposis 05/28/21 calcium carbonate 600 mg calcium (1,500 mg) tablet 1,200 mg PO DAILY calcium 05/28/21 levothyroxine 112 mcg tablet (Synthroid) 112 mcg PO DAILY hypothyroid 12/13/21 apixaban 5 mg tablet (Eliquis) 5 mg PO BID afib 05/03/22 beclomethasone dipropionate 80 mcg/actuation aerosol inhaler 80 mcg inhalation fibrosis 05/03/22 metoprolol succinate 100 mg tablet,extended release 24 hr 100 mg PO DAILY blood pressure 05/03/22 Hospital Course Operations None Procedures 2-D Echocardiogram Summary of Care Provided Minutes Spent on Discharge: 28 Hospital Course: Patient in A. fib with RVR. Was on diltiazem bolus and drip but converted normal sinus rhythm. Patient has remained stable. Patient takes metoprolol succinate as outpatient. Patient has been emotionally duress due to the passing and witnessed cardiac arrest of a friend. No change in medications. Discharged home. Weight / BMI Weight Weight: 70.4 kg Body Mass Index (BMI) 28.3 ABG / Lab / Microbiology Data Result Diagrams: 05/03/22 04:06 05/03/22 04:06 Laboratory: Laboratory Results - last 24 hr 05/03/22 01:40: WBC 10.1, RBC 5.18, Hgb 14.6, Hct 44.5, MCV 85.9, MCH 28.2, MCHC 32.8, RDW Std Deviation 40.8, RDW Coeff of Luiza 13.0, Plt Count 313, MPV 10.8, Immature Gran % (Auto) 0.200, Neut % (Auto) 59.7, Lymph % (Auto) 27.8, [place] % (Auto) 9.4, Eos % (Auto) 2.3, Baso % (Auto) 0.6, Absolute Neuts (auto) 6.0, Absolute Lymphs (auto) 2.80, Nucleated RBC % 0 05/03/22 01:40: Sodium 139, Potassium 2.7 L*, Chloride 104, Carbon Dioxide 28.0, Anion Gap 7, BUN 23 H, Creatinine 0.85, Estim Creat Clear Calc 45.81, Est GFR (MDRD) Af Amer 84, Est GFR (MDRD) Non-Af 70, BUN/Creatinine Ratio 27.0 H, Glucose 173 H, Calcium 9.1, Troponin I High Sens 17 05/03/22 04:06: WBC 8.9, RBC 4.84, Hgb 13.8, Hct 41.1, MCV 84.9, MCH 28.5, MCHC 33.6, RDW Std Deviation 40.7, RDW Coeff of Luiza 13.1, Plt Count 284, MPV 10.6, Immature Gran % (Auto) 0.300, Neut % (Auto) 67.6, Lymph % (Auto) 17.8 L, [place] % (Auto) 12.6 H, Eos % (Auto) 1.1, Baso % (Auto) 0.6, Absolute Neuts (auto) 6.0, Absolute Lymphs (auto) 1.59, Nucleated RBC % 0 05/03/22 04:06: Sodium 138, Potassium 3.7, Chloride 105, Carbon Dioxide 27.0, Anion Gap 6, BUN 21 H, Creatinine 0.64, Estim Creat Clear Calc 40.81, Est GFR (MDRD) Af Amer 118, Est GFR (MDRD) Non-Af 98, BUN/Creatinine Ratio 33.0 H, Glucose 112 H, Calcium 8.3 L, TSH 0.49 05/03/22 04:06: Troponin I High Sens 37 Radiography Diagnostic Testing: Radiology Impression Chest X-Ray 05/03/22 01:49 IMPRESSION: Bilateral lower lobe airspace disease. Findings may indicate pneumonia. Electronically Signed: Bdudy Frances MD at 2:07 EST Reading Location ID and State: [facility] Tel , Service support , Echocardiogram 05/03/22 03:41 Interpretation Summary The estimated ejection fraction is 75 %. No evidence for diastolic dysfunction. Trivial mitral valve insufficiency. Ordering Physician: Donte Anglin Referring Physician: Ana Lilia Parker M.D. Performed By: Roxi Prather RCS D/C Instructions Discharge Diet: Low fat / Low cholesterol Call your doctor if your incision/area has: Continuous Slow Oozing Call your doctor if you observe: Shortness of breath and Increased palpitations (irregular heartbeat) Meaningful Use Info Meaningful Use Diagnoses (Choose all that apply): None applicable Discharge Plan Admission Admit Date/Time: 05/03/22 02:31 Primary Reason for Your Visit: Atrial fibrillation with RVR Attending Provider: Alonzo Christiansen Primary Care Provider: Ana Lilia Parker Consulting Providers: Donte Anglin Discharge Orders/Prescriptions Prescriptions: Continued levothyroxine [Synthroid] 112 mcg tablet 112 mcg PO DAILY alendronate 70 mg tablet 70 mg PO QHS Rx Instructions: pt takes every Thursday morning cholecalciferol (vitamin D3) 2,000 UNIT capsule 4,000 unit PO DAILY chlorthalidone 25 MG tablet 25 mg PO DAILY duloxetine 60 MG capsule 60 mg PO DAILY Eliquis 5 mg tablet 5 mg PO BID metoprolol succinate 100 mg tablet extended release 24 hr 100 mg PO DAILY beclomethasone dipropionate 80 mcg/actuation Aerosol 80 mcg INHALATION calcium carbonate 600 mg calcium (1,500 mg) tablet 1,200 mg PO DAILY Referrals / Follow Up: [facility] [Provider Group] - 06/16/22 2:30 pm Ana Lilia Parker DO [Primary Care Provider] - Within 2 Weeks Disposition Disposition (needs filled in before D/C Order can be placed): Home, Self Care Charges/Coding Visit Charges Inpatient E&M: [id number] Disch Hosp
== END 2022-05-03 13:36 | disposition home or self-care (01) ==
LOC: ED 02:37 → PCU 06:55
PROVIDERS: Admitting Provider Hospitalist; Emergency Provider Emergency Medicine; PCP Internal Medicine
DX: I48.0 Paroxysmal atrial fibrillation (principal); D68.69 Other thrombophilia; Z86.16 Personal history of COVID-19; E87.6 Hypokalemia; I10 Essential (primary) hypertension; E03.9 Hypothyroidism, unspecified; Z82.49 Family history of ischemic heart disease and other diseases of the circulatory system; Z79.01 Long term (current) use of anticoagulants; I45.6 Pre-excitation syndrome; Z79.899 Other long term (current) drug therapy; Z79.890 Hormone replacement therapy; I08.1 Rheumatic disorders of both mitral and tricuspid valves
CPT/HCPCS: 71045; 80048; 84443; 84484; 85025; 93005; 93306; 96365; 96366; 96368; 96375; 99218; 99285; J7030; Q9957; A4216; G0378

== ENCOUNTER → 2022-05-14 | Outpatient (CLI) | payer MEDICARE, SELFPAY ==
[2022-05-14 12:14] LABS: Magnesium 2.1 mg/dL (1.6-2.6); Potassium 3.5 mmol/L (3.5-5.1)
[2022-05-14 14:56] LABS: Hemoglobin A1c 6.2 % (3.8-5.6)
== END | disposition home or self-care (01) ==
LOC: LAB 11:30
PROVIDERS: PCP Internal Medicine; Visit Provider Internal Medicine
DX: E87.6 Hypokalemia (principal); R73.9 Hyperglycemia, unspecified
CPT/HCPCS: 36415; 83036; 83735; 84132

== ENCOUNTER → 2022-07-03 | Outpatient (CLI) | payer MEDICARE, SELFPAY ==
--- NOTE | 2022-07-03 15:15 | BI_ITS ---
MAMMOGRAPHY - BILATERAL SCREENING REASON FOR EXAM: Female, 71 years old. Routine annual screening examination. PERTINENT HISTORY: Non-contributory. Prior left stereotactic guided breast biopsy. TECHNIQUE: Digital bilateral breast leesa (3D mammographic acquisition) in the CC and MLO projections. 2-D mediolateral oblique (MLO) and craniocaudad (CC) views of both breasts were obtained. CAD: Full Field Digital Mammography with Computer Added Detection was performed. COMPARISON: Comparison is made with prior examination of 05/10/2021 and 12/15/2019. FINDINGS: Breast Composition: The breasts are almost entirely fatty. There are no dominant masses or suspicious calcifications. A tissue clip marker is seen in the deep upper outer aspect of the left breast. The previously seen 8 mm nodular density is not seen at this time. Stable benign-appearing bilateral axillary lymph nodes. No other significant abnormalities are identified. There has been no significant change since the prior study. BI/SCRN MAMM (CAD)W/LEESA BILAT IMPRESSION: Stable bilateral screening mammogram. Yearly follow-up mammogram recommended. (A) ASSESSMENT CATEGORY: BIRADS Category 2: Benign. A letter regarding these results will be sent to the patient by the facility within 30 days. Approximately 10% of breast cancers are not detected by mammography. A normal mammogram should not delay biopsy of a clinically suspicious abnormality. [id number] Electronically Signed: Kenton Person MD at 8:11 EST ,
--- NOTE | 2022-07-03 15:22 | BD_ITS ---
STUDY: DUAL ENERGY X-RAY ABSORPTIOMETRY / DXA REASON FOR EXAM: Female, 71 years old. [id number] -- post menopausal TECHNIQUE: Bone Mineral Density (BMD) measurements of lumbar spine and bilateral hips were obtained. COMPARISON: Comparison is made with prior study dated 12/15/2019. FINDINGS: Lumbar Spine (L1-L4): g/cm2 (1.087) / T-score (0.4) / Z-score (2.6) Findings are suggestive of normal bone density with a low fracture risk. Left Femur Total: g/cm2 (0.858) / T-score (-0.7) / Z-score (0.9) Left Femoral Neck: g/cm2 (0.720) / T-score (-1.2) / Z-score (0.7) Right Femur Total: g/cm2 (0.763) / T-score (-1.5) / Z-score (0.1) Right Femoral Neck: g/cm2 (0.704) / T-score (-1.3) / Z-score (0.6) The T-Scores on the most recent prior examination were: Lumbar Spine (L1-L4): There has been improvement of bone density since the previous examination. Left Femur Total: which represents a worsening of 10.5%. Right Femur Total: which represents a worsening of 5.2%. BD/Dexa Bone Density Study IMPRESSION: The patient is considered osteopenic as outlined below according to World Trist[employer] Organization (WHO) criteria with a low fracture risk. There has been worsening of bone density since the previous examination. Reference Information: The T-score is the number of standard deviations above or below the standard which is normal for young adults at their peak bone mineral density. The World Health Organization (WHO) interprets the T-scores as follows: Above -1 Normal bone density Between -1 and -2.5 Osteopenia Equal to / or below -2.5 Osteoporosis As a practical clinical guideline, osteopenia may be graded as follows: Mild -1 through -1.5 Moderate -1.6 through -2.0 Severe -2.1 through -2.4 The Z-score is the number of standard deviations above or below age-matched controls. A Z-score of less than -1.5 would be considered abnormal. References: 1. NIH Osteoporosis and Related Bone Diseases www osteo.org 2. International Society for Clinical Densitometry www iscd.org 3. National Osteoporosis Foundation www nof.org Electronically Signed: Kenton Person MD at 8:20 EST ,
== END | disposition home or self-care (01) ==
LOC: OPBD 15:13
PROVIDERS: PCP Internal Medicine; Referring Provider Internal Medicine; Visit Provider Internal Medicine
DX: Z12.31 Encounter for screening mammogram for malignant neoplasm of breast (principal); Z78.0 Asymptomatic menopausal state
CPT/HCPCS: 77063; 77067; 77080

== ENCOUNTER 2022-07-20 09:58 | Observation (INO) | payer MEDICARE, SELFPAY ==
[2022-07-20] VITALS (12 sets, daily range): BP systolic 106–174; BP diastolic 55–148; PULSE 57–166; RESP 10–24; TEMP 36.2–37; O2SAT 94–99; BMI 30.3
[2022-07-20] MEDS: Metoprolol Tartrate 5 MG/5 ML Vial IV ×2 (10:09→10:19)
--- NOTE | 2022-07-20 10:11 | EKG12_ITS ---
Test Reason : PALP Blood Pressure : / mmHG Vent. Rate : 152 BPM Atrial Rate : 000 BPM P-R Int : 000 ms QRS Dur : 080 ms QT Int : 268 ms P-R-T Axes : 000 054 199 degrees QTc Int : 426 ms Atrial fibrillation with rapid ventricular response with premature ventricular or aberrantly conducte d complexes Marked ST abnormality, possible lateral subendocardial injury Abnormal ECG Confirmed by GALDINO ROOT, GIANLUCA ([id number]), news videotape editor SHELLIE FITZPATRICK ([id number]) on 07/22/2022 9:32:43 AM Referred By: Confirmed By:GIANLUCA AHMADI MD
[2022-07-20 10:25] LABS: Absolute Lymphocyte Count 1.83 X10^3/uL (0.83-4.51); Absolute Neutrophil Count 5.7 X10^3/uL (2.0-7.7); Basophil# 0.08 X10^3/uL; Basophil% 0.9 % (0-1); Eosinophils% 1.1 % (0-5); Hematocrit 46.4 % (37-47); Hemoglobin 15.6 g/dL (12.0-15.0); Lymphocyte # 1.83 X10^3/ul (0.83-4.51); Lymphocyte % 20.8 % (19-41); Mean Corp Hgb Conc 33.6 g/dL (32-36); Mean Corpuscular Hgb 28.7 pg (27.0-32.0); Mean Corpuscular Volume 85.5 fL (81-99); Mean Platelet Vol. 10.6 fl (6.2-12.0); Monocyte# 1.08 X10^3/uL; Monocyte% 12.3 % (0-10); NRBC Flagged by Analyzer 0 % (0-5); Neutrophil # 5.68 X10^3/uL (2.7-7.7); Neutrophil % 64.6 % (47-70); Platelet Count 366 K/mm3 (150-450); RBC Distribution Width CV 12.9 % (11.6-14.6); RBC Distribution Width SD 39.8 fl (35.1-43.9); Red Blood Count 5.43 M/mm3 (4.2-5.4); White Blood Count 8.8 K/mm3 (4.4-11.0)
[2022-07-20] MEDS: dilTIAZem 25 MG/5 ML Vial 10 MG IV BOLUS (10:30)
--- NOTE | 2022-07-20 10:30 | RAD_ITS ---
INDICATION: cough EXAMINATION/TECHNIQUE: X-RAY - XR Chest 1 View COMPARISON: May 03, 2022 FINDINGS: LINES/DEVICES: None. LUNGS: There is no new focal consolidation. MEDIASTINUM AND CARDIOVASCULAR STRUCTURES: Cardiac silhouette not enlarged. Central airways and mediastinal contour are unremarkable. BONES AND SOFT TISSUES: Unremarkable. RAD/Chest 1 View (Portable) IMPRESSION: No radiographic evidence of acute cardiopulmonary disease. Electronically Signed: Rebecca Magana MD at 10:41 EST ,
[2022-07-20 10:36] LABS: Anion Gap 9 (5-15); BUN 17 mg/dL (7-18); Calcium,Total 9.3 mg/dL (8.5-10.1); Chloride 100 mmol/L (98-107); Creatinine, Serum 0.94 mg/dL (0.55-1.02); EST Glomerular Filtration Rate 62 mL/min (>60); Est Glom Filt Rate - Afr Amer 75 mL/min (>60); Estimated Creatinine Clearance 41.42 ml/min; Glucose 131 mg/dL (74-106); Magnesium 2.2 mg/dL (1.6-2.6); Potassium 3.8 mmol/L (3.5-5.1); Sodium Level 135 mmol/L (136-145)
--- NOTE | 2022-07-20 10:48 | EDS_ITS ---
HPI History of Present Illness Chief Complaint: Palpitations Informant: patient Narrative Narrative: Sudden palpitations when she went into [facility] less than 1 hour prior to arrival. Mild lightheaded symptoms. No chest pains. No recent vomiting. She had mild loose stools yesterday that resolved. Tolerating oral fluids. Atrial fibrillation diagnosed this past February. She is on metoprolol 100 mg extended release. She took her morning dose prior to going to [facility]. She is on Eliquis twice a day last dose this morning. 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 She is followed by Dr. Valle. She is referred to EP at [facility] and seen little over a week ago. Discussion of ablation again versus antiarrhythmics. She is thinking about this. She had recurrent A-fib this past April was admitted on a Cardizem drip and cardioverted on this. No history of electric cardioversions in the past. Reports lingering occasional cough. No fevers. Patient Prior similar symptoms: Yes [facility] Medical History Abnormal mammogram of left breast Cataract Chest pain Chronic anticoagulation COVID-19 (04/23/21) Depression Essential hypertension Family history of RI (myocardial infarction) History of Gzcnh-Pfnrogqls-Fobor (WPW) syndrome Hypothyroidism Over 65 years old Paroxysmal atrial fibrillation with RVR SVT (supraventricular tachycardia) WPW (Tupov-Oykkoovng-Kjoru syndrome) Home Medications chlorthalidone 25 mg tablet 25 mg PO DAILY blood pressure 12/06/19 [History Last Taken Unknown] duloxetine 60 mg capsule,delayed release 60 mg PO DAILY DEPRESSION 12/06/19 [History Last Taken 07/20/22] alendronate 70 mg tablet 70 mg PO SA OSTEOPEROSIS 05/28/21 [History Last Taken 07/19/22] levothyroxine 112 mcg tablet (Synthroid) 112 mcg PO DAILY THYROID 12/13/21 [History Last Taken 07/20/22] apixaban 5 mg tablet (Eliquis) 5 mg PO BID AFIB 05/03/22 [History Last Taken 07/20/22] metoprolol succinate 100 mg tablet,extended release 24 hr 100 mg PO DAILY BLOOD PRESSURE 05/03/22 [History Last Taken 07/20/22] potassium chloride 20 mEq tablet,extended release 1 ea PO BID SUPPLEMENT 06/16/22 [History Last Taken 07/20/22] albuterol sulfate 90 mcg/actuation aerosol inhaler 2 inh inhalation 4X/DAY COUGH 07/20/22 [History Last Taken 07/20/22] beclomethasone dipropionate 80 mcg/actuation HFA breath activated aerosol (Qvar RediHaler) 2 inh inhalation BID COUGH 07/20/22 [History Last Taken 07/20/22] calcium carbonate 500 mg-vitamin D3 10 mcg (400 unit) tablet (Calcium 500 + D) 1 tab PO QHS SUPPLEMENT 07/20/22 [History Last Taken 07/04/22] Allergy/AdvReac Type Severity Reaction Status Date / Time No Known Allergies Allergy Verified 07/20/22 10:00 anesthesia AdvReac Nausea & Uncoded 07/20/22 10:00 Vomiting Family History Other Diabetes Heart disease Hypertension Myocardial infarction Surgical History History of bilateral cataract extraction (~02/2022) History of cardiac radiofrequency ablation History of left heart catheterization (LHC) (~08/28/20) History of radiofrequency ablation procedure for cardiac arrhythmia (~2002) History of surgery on left wrist Social History Smoking Status: Never smoker alcohol intake: never substance use type: does not use caffeine: Yes Type: tea Number of servings: 6 ROS ROS ED Constitutional Constitutional ED: Denies chills, fever(s) or sweats Eyes Eyes: Denies change in vision ENT ENT ED: Denies dysphagia or sore throat Cardiovascular Cardiovascular: Reports palpitations; Denies chest pain, leg edema or racing heartbeat Respiratory/Chest Respiratory/Chest: Denies cough, dyspnea or dyspnea on exertion Gastrointestinal Gastrointestinal: Reports diarrhea; Denies abdominal pain, nausea or vomiting Genitourinary Genitourinary ED: Denies dysuria, hematuria or urinary frequency Musculoskeletal Musculoskeletal: Denies back pain, extremity pain or neck pain Integumentary Denies rash or wounds Neurologic Neurologic: Denies headache(s), paresthesias or weakness EXAM Physical Exam Const Vital Signs: 07/20/22 09:58 07/20/22 10:05 07/20/22 10:16 Temperature 97.1 F L Temperature Source Temporal Pulse Rate 77 153 H Respiratory Rate 24 H 17 Respiratory Effort Normal Short of Breath Labored Respiratory Pattern Normal Blood Pressure 174/148 H 122/105 H Blood Pressure Mean 156 110 Pulse Ox 97 94 Oxygen Delivery Method Room Air Room Air Oxygen Flow Rate (L/min) 07/20/22 10:28 07/20/22 10:33 07/20/22 10:41 Temperature Temperature Source Pulse Rate 156 H 117 H 166 H Respiratory Rate 20 H 11 L 16 Respiratory Effort Respiratory Pattern Blood Pressure 166/77 H 118/69 118/69 Blood Pressure Mean 106 85 85 Pulse Ox 97 95 97 Oxygen Delivery Method Nasal Cannula Nasal Cannula Nasal Cannula Oxygen Flow Rate (L/min) 2 2 2 07/20/22 11:01 Temperature Temperature Source Pulse Rate 111 H Respiratory Rate 16 Respiratory Effort Respiratory Pattern Blood Pressure 111/62 Blood Pressure Mean 78 Pulse Ox Oxygen Delivery Method Oxygen Flow Rate (L/min) Positive well nourished and well developed General Appearance ED: well developed and NAD HEENT Reports moist mucous membranes normocephalic and atraumatic Eyes PERRL, EOMs intact bilaterally and conjunctivae normal General Eye ED: Yes normal appearance of both eyes Neck no lymphadenopathy and supple General: Negative for tenderness Chest Wall Chest: Negative for tenderness Resp normal respiratory effort and normal air movement Effort and Inspection: symmetric chest movement; Negative for respiratory distress Cardio regular rate and no murmurs Rate: tachycardic Rhythm: abnormal rhythm Peripheral Pulses: pulses 2+ throughout GI normal to inspection, nondistended, normoactive bowel sounds and non-tender Palpation: Negative for guarding or rebound tenderness present Back/Spine no CVA tenderness and no thoracic nor lumbar tenderness Extremity normal to inspection General Extremety ED: Negative for edema or tenderness General Extremity: Negative for edema Neuro oriented x3 and no sensory deficits noted Sensorium / Orientation: awake and alert Skin no rashes or lesions noted and no wounds MDM MDM MDM Narrative Medical decision making narrative: Interventions / MDM: Differential diagnosis: Cardiac dysrhythmia, A-fib, SVT, VT Diagnosis considered but do not suspect: Pulmonary embolism however no dyspnea, not hypoxic, on Eliquis My EKG interpretation: A-fib RVR ST depressions likely just demand ischemia Imaging independently reviewed and interpreted by myself: 1 view chest x-ray: No acute process External documents reviewed: N/A Test considered but not ordered:N/A ED course: Patient A-fib with RVR blood pressure stable patient given Lopressor x2 heart rate down 130s will go up to 150s blood pressure 120s to 150s with treatment. Laboratory studies were ordered. 1028: I reach out to our on-call group reservations coordinator Dr. Bruno, discussed patient's history findings with her on Eliquis. Discussed potential direct-current cardioversion, however with normal stable blood pressure and her history of cardioverting back on a Cardizem drip back in April he recommended this route of care. After 2 doses Lopressor she was given IV Cardizem bolus then drip is ordered. Re-evaluation: Laboratory studies returned normal with potassium and magnesium. 1100: Heart rate fluctuating 100-120s on the Cardizem drip, A-fib on the monitor blood pressure stable 110s. I will discussed with hospitalist service for admission. Of note, after admission place, patient did convert to normal sinus rhythm the Cardizem drip was stopped. She remained asymptomatic. I we discussed with group reservations coordinator, he would like still like her observed in the hospital for monitoring. This was relayed to hospitalist. Repeat EKG normal sinus rate of [address] depressions resolved. Disposition discussed with patient/family/significant other: Patient Case discussed with consulting clinician: Cardiology, Dr. Bruno, Hospitalist Lab Data Attestation: I reviewed the patient's lab results. Labs: Laboratory Results - last 24 hr 07/20/22 07/20/22 10:06 10:06 WBC 8.8 RBC 5.43 H Hgb 15.6 H Hct 46.4 MCV 85.5 MCH 28.7 MCHC 33.6 RDW Std Deviation 39.8 RDW Coeff of Luiza 12.9 Plt Count 366 MPV 10.6 Immature Gran % (Auto) 0.300 Neut % (Auto) 64.6 Lymph % (Auto) 20.8 Wolfe % (Auto) 12.3 H Eos % (Auto) 1.1 Baso % (Auto) 0.9 Absolute Neuts (auto) 5.7 Absolute Lymphs (auto) 1.83 Nucleated RBC % 0 Sodium 135 L Potassium 3.8 Chloride 100 Carbon Dioxide 26.0 Anion Gap 9 BUN 17 Creatinine 0.94 Estim Creat Clear Calc 41.42 Est GFR (MDRD) Af Amer 75 Est GFR (MDRD) Non-Af 62 BUN/Creatinine Ratio 18.0 Glucose 131 H Calcium 9.3 Magnesium 2.2 Radiography Diagnostic Testing: Clinical Impression(s) from Imaging Studies Chest X-Ray 07/20/22 10:30 IMPRESSION: No radiographic evidence of acute cardiopulmonary disease. Electronically Signed: Rebecca Magana MD at 10:41 EST , EKG Initial EKG: Attestation: I personally reviewed and interpreted this EKG as follows: Comments: A-fib rate of 152, ST depression anterior lateral, no elevations. No T wave changes. Likely demand ischemia. Follow-up EKG: Attestation: I personally reviewed and interpreted this EKG as follows: Comments: Sinus rate of 60, no ST changes isolated T wave inversion lead III, nonspecific. Discharge Plan Dx/Rx/DC Orders Clinical Impression: Atrial fibrillation with RVR, Palpitations, Chronic anticoagulation Disposition Disposition: Acute Care Hospital [facility] Discharge Date/Time: 07/20/22 12:04
--- NOTE | 2022-07-20 11:11 | NURSING ---
DR ERIN DOUGHERTY
--- NOTE | 2022-07-20 11:15 | HP.PCM.HOS_ITS ---
[facility] Date of Admission: 07/20/22 Date of Service: 07/20/22 Chief Complaint: Palpitations [facility] Narrative BECKY GARZA, is a 71 F who presented to the emergency department at [facility] on 07/20/2022 when she developed sudden onset of palpitations while at [employer] approximately 1 hour prior to arrival. She had some mild lightheadedness associated but no chest pain. She has a history of atrial fibrillation that was diagnosed in February 2022 and is on metoprolol 100 mg daily as well as Eliquis. She is compliant with her home medications. 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 She follows with Dr. Valle at baseline and was recently evaluated by EP at [facility]. E vidently, there is discussion of possible recurrent ablation for atrial fibrillation versus antiarrhythmic therapy and she was planning on discussing this with Dr. Valle before making a decision. She complains of a cough that has been lingering but no fevers or chills. Overall she been feeling quite well up until the event that brought her in today. Vital signs on presentation demonstrated temperature of 97.1, heart rate 153, blood pressure initially 174/148 however since initiation of Cardizem drip blood pressures have been 112-118/62-69, respiratory rate 17, oxygen saturations are 94% on room air. CBC shows erythrocytosis that is new but is otherwise unremarkable. Her chemistry panel shows mild hyponatremia of the sodium of 134 but is otherwise normal. Serum glucose is 131 but is nonfasting. Magnesium level is normal at 2.2. Chest x-ray showed no radiographic evidence of any acute cardiopulmonary process. EKG shows atrial fibrillation with a rate of [address] depression in the anterior lateral leads with no elevation. This is suspected related to demand ischemia with her heart rate. Case was discussed with cardiology in the emergency department and the emergency department physician was planning on cardioverting her however cardiology wanted her placed on a Cardizem drip and admitted to the hospital. Cardizem drip was initiated prior to admission. [facility] Medical History Abnormal mammogram of left breast Cataract Chest pain Chronic anticoagulation COVID-19 (04/23/21) Depression Essential hypertension Family history of [place] (myocardial infarction) History of Sisvd-Fwysshrgk-Glbqp (WPW) syndrome Hypothyroidism Over 65 years old Paroxysmal atrial fibrillation with RVR SVT (supraventricular tachycardia) WPW (Cvfny-Npxuqenxj-Tohwq syndrome) Home Medications chlorthalidone 25 mg tablet 25 mg PO DAILY blood pressure 12/06/19 [History Last Taken Unknown] duloxetine 60 mg capsule,delayed release 60 mg PO DAILY DEPRESSION 12/06/19 [History Last Taken 07/20/22] alendronate 70 mg tablet 70 mg PO SA OSTEOPEROSIS 05/28/21 [History Last Taken 07/19/22] levothyroxine 112 mcg tablet (Synthroid) 112 mcg PO DAILY THYROID 12/13/21 [History Last Taken 07/20/22] apixaban 5 mg tablet (Eliquis) 5 mg PO BID AFIB 05/03/22 [History Last Taken 07/20/22] metoprolol succinate 100 mg tablet,extended release 24 hr 100 mg PO DAILY BLOOD PRESSURE 05/03/22 [History Last Taken 07/20/22] potassium chloride 20 mEq tablet,extended release 1 ea PO BID SUPPLEMENT 06/16/22 [History Last Taken 07/20/22] albuterol sulfate 90 mcg/actuation aerosol inhaler 2 inh inhalation 4X/DAY COUGH 07/20/22 [History Last Taken 07/20/22] beclomethasone dipropionate 80 mcg/actuation HFA breath activated aerosol (Qvar RediHaler) 2 inh inhalation BID COUGH 07/20/22 [History Last Taken 07/20/22] calcium carbonate 500 mg-vitamin D3 10 mcg (400 unit) tablet (Calcium 500 + D) 1 tab PO QHS SUPPLEMENT 07/20/22 [History Last Taken 07/04/22] Allergy/AdvReac Type Severity Reaction Status Date / Time No Known Allergies Allergy Verified 07/20/22 10:00 anesthesia AdvReac Nausea & Uncoded 07/20/22 10:00 Vomiting Family History Other Diabetes Heart disease Hypertension Myocardial infarction Surgical History History of bilateral cataract extraction (~02/2022) History of cardiac radiofrequency ablation History of left heart catheterization (LHC) (~08/28/20) History of radiofrequency ablation procedure for cardiac arrhythmia (~2002) History of surgery on left wrist Social History Smoking Status: Never smoker alcohol intake: never substance use type: does not use caffeine: Yes Type: tea Number of servings: 6 ROS Constitutional Constitutional: Denies anorexia, change in weight, chills, fatigue, fever(s), malaise, night sweats, weakness or other Eyes Eyes: Denies blurry vision, change in eye color, change in vision, discharge from eye(s), double vision, erythema, eye pain, loss of vision or other ENT HEENT: Reports nasal congestion; Denies abnormal hearing, dysphagia, ear pain, epistaxis, headache(s), hearing loss, nasal discharge, post nasal drip, sinus pressure, sore throat or other Cardiovascular Cardiovascular: Denies chest pain, claudication, dyspnea on exertion, edema, lightheadedness, orthopnea, palpitations, paroxysmal nocturnal dyspnea, rapid heart rate, syncope or other Respiratory/Chest Respiratory/Chest: Reports cough; Denies dyspnea, excessive phlegm production, hemoptysis, productive cough, shortness of breath at rest, shortness of breath with exertion, wheezing or other Gastrointestinal Gastrointestinal: Denies abdominal pain, coffee ground emesis, constipation, diarrhea, dyspepsia, hematemesis, hematochezia, loose stools, melena, nausea, vomiting or other Genitourinary Genitourinary: Denies burning urination, difficulty urinating, dysuria, hematu dennys, nocturia, urinary frequency, urinary hesitancy, urinary incontinence, urinary urgency or other Musculoskeletal Musculoskeletal: Denies arthralgias, back pain, joint pain, joint stiffness, joint swelling, myalgias, neck pain or other Neurologic Neurologic: Denies abnormal gait, abnormal speech, confusion, disequilibrium, dizziness, focal weakness, headache(s), numbness, paresthesias, seizure-like activity, seizures, syncope, tingling, tremor(s) or other Psychiatric Psychiatric: Denies anxiety, depression, homicidal ideation, suicidal ideation or other Endocrine Endocrinology: Denies change in body appearance, cold intolerance, excessive sweating, heat intolerance, polydipsia, polyuria or other Hematologic/Lymphatic Hematologic/Lymphatic: Denies anemia, easy bleeding, easy bruising, lymphadenopathy or other Vital Signs Vital Signs Vital Signs: 07/20/22 09:58 07/20/22 10:05 07/20/22 10:16 Temperature 97.1 F L Temperature Source Temporal Pulse Rate 77 153 H Respiratory Rate 24 H 17 Respiratory Effort Normal Short of Breath Labored Respiratory Pattern Normal Blood Pressure 174/148 H 122/105 H Blood Pressure Mean 156 110 Pulse Ox 97 94 Oxygen Delivery Method Room Air Room Air Oxygen Flow Rate (L/min) 07/20/22 10:28 07/20/22 10:33 07/20/22 10:41 Temperature Temperature Source Pulse Rate 156 H 117 H 166 H Respiratory Rate 20 H 11 L 16 Respiratory Effort Respiratory Pattern Blood Pressure 166/77 H 118/69 118/69 Blood Pressure Mean 106 85 85 Pulse Ox 97 95 97 Oxygen Delivery Method Nasal Cannula Nasal Cannula Nasal Cannula Oxygen Flow Rate (L/min) 2 2 2 07/20/22 11:01 Temperature Temperature Source Pulse Rate 111 H Respiratory Rate 16 Respiratory Effort Respiratory Pattern Blood Pressure 111/62 Blood Pressure Mean 78 Pulse Ox Oxygen Delivery Method Oxygen Flow Rate (L/min) Weight Weight: 72.802 kg Body Mass Index (BMI) 30.3 Physical Exam Const alert, oriented x3, healthy appearing and well nourished Constitutional Narrative: Obese, white female who appears well, sitting up in bed, nontoxic, very pleasant General Appearance: cooperative HEENT normocephalic, head/scalp atraumatic, hearing grossly normal bilaterally and moist oral mucous membranes Resp normal respiratory effort, no retractions, no use of accessory muscles and clear to auscultation bilaterally Cardio regular rate, regular rhythm, S1 normal heart sound, S2 normal heart sound, no murmurs, no rub, no gallops, no clicks and no JVD GI normal to inspection, nondistended, normoactive bowel sounds, soft to palpation, non-tender and non-distended; Negative for hepatosplenomegaly Extremity no clubbing, cyanosis or edema Neuro oriented x3, CN's II-XII intact bilaterally, moves all extremities and no focal motor deficits Speech: speech normal Psych affect normal Psych Narrative: Very pleasant Results Lab / Micro Data Attestation: I reviewed the patient's lab results. Result Diagrams: 07/20/22 10:06 07/20/22 10:06 Labs: Laboratory Results - last 24 hr 07/20/22 10:06: WBC 8.8, RBC 5.43 H, Hgb 15.6 H, Hct 46.4, MCV 85.5, MCH 28.7, MCHC 33.6, RDW Std Deviation 39.8, RDW Coeff of Luiza 12.9, Plt Count 366, MPV 10.6, Immature Gran % (Auto) 0.300, Neut % (Auto) 64.6, Lymph % (Auto) 20.8, [place] % (Auto) 12.3 H, Eos % (Auto) 1.1, Baso % (Auto) 0.9, Absolute Neuts (auto) 5.7, Absolute Lymphs (auto) 1.83, Nucleated RBC % 0 07/20/22 10:06: Sodium 135 L, Potassium 3.8, Chloride 100, Carbon Dioxide 26.0, Anion Gap 9, BUN 17, Creatinine 0.94, Estim Creat Clear Calc 41.42, Est GFR (MDRD) Af Amer 75, Est GFR (MDRD) Non-Af 62, BUN/Creatinine Ratio 18.0, Glucose 131 H, Calcium 9.3, Magnesium 2.2 Radiology Impression Chest X-Ray 07/20/22 10:30 IMPRESSION: No radiographic evidence of acute cardiopulmonary disease. Electronically Signed: Rebecca Magana MD at 10:41 EST , Assessment & Plan Assessment/Plan (1) Atrial fibrillation with RVR: (2) Palpitations: PLAN: Plan A-fib with RVR -Patient with previous ablation for WPW -Met with EP within the last 10 days over to [facility] and discussed possible upcoming ablation however nothing has been set yet -Continue home metoprolol 100 mg daily -Continue Eliquis -Check TSH -ED was going to cardiovert her but per cardiology request will place on [facility] -Patient with recent echocardiogram on 07/04/2021 that showed an EF of 75% and no evidence of diastolic dysfunction, trivial mitral valve insufficiency and normal atria bilaterally. -Cardiology consult initiated by the emergency department Hypertension -Continue home chlorthalidone neck-continue home metoprolol Hypothyroidism -Check TSH -Continue home levothyroxine History of WPW -Treated with radiofrequency ablation in 2002 Depression -Continue home duloxetine Asthma -Continue home inhalers Osteoporosis -Continue alendronate every Thursday -Continue calcium carbonate supplementation DVT prophylaxis -Full anticoagulation with Eliquis CODE STATUS -Full code Charges/Coding Visit Charges Inpatient E&M: 52120 Init Hosp L2
--- NOTE | 2022-07-20 11:16 | EKG12_ITS ---
Test Reason : Blood Pressure : / mmHG Vent. Rate : 060 BPM Atrial Rate : 060 BPM P-R Int : 190 ms QRS Dur : 070 ms QT Int : 436 ms P-R-T Axes : 037 000 031 degrees QTc Int : 436 ms Normal sinus rhythm Possible Inferior infarct , age undetermined Abnormal ECG Confirmed by GALDINO ROOT, GIANLUCA ([id number]), state editor SHELLIE FITZPATRICK ([id number]) on 07/22/2022 9:32:57 AM Referred By: Confirmed By:GIANLUCA AHMADI MD
--- NOTE | 2022-07-20 11:17 | ED.RN ---
DR. DOUGHERTY AT BEDSIDE. VERBAL ORDER TO STOP DILTIAZEM DRIP. PT HEART RATE 60 NORMAL SINUS RHYTHM. REPEAT EKG VERBAL ORDER. RESPIRATORY THERAPIST AWARE.
--- NOTE | 2022-07-20 11:20 | NURSING ---
PCU OBS ERIN ATRIAL FIB RVR
--- NOTE | 2022-07-20 11:40 | NURSING ---
[id number] MARIANO [phone] MARIANO'S PHONE [phone] MARIANO'S OFFICE PHONE
[2022-07-20 13:27] LABS: Troponin-I HS 16 pg/mL (3.0-54.0)
[2022-07-20 15:40] LABS: Troponin-I HS 18 pg/mL (3.0-54.0)
[2022-07-20] MEDS: Potassium Chloride Oral Tablet 20 MEQ PO (17:54)
[2022-07-20] MEDS: Albuterol 2.5 MG/3 ML VIAL.NEB. INHALATION (19:00)
[2022-07-20 19:01] LABS: Troponin-I HS 16 pg/mL (3.0-54.0)
[2022-07-20] MEDS: APIXABAN 5 MG TABLET PO (20:54)
[2022-07-21 03:00] VITALS: BP 129/58; PULSE 58; RESP 16; TEMP 36.2; O2SAT 98
[2022-07-21] MEDS: Levothyroxine 112 MCG Tablet PO (03:03)
[2022-07-21 06:25] LABS: Absolute Lymphocyte Count 2.08 X10^3/uL (0.83-4.51); Absolute Neutrophil Count 3.6 X10^3/uL (2.0-7.7); Basophil# 0.06 X10^3/uL; Basophil% 0.9 % (0-1); Eosinophil# 0.14 X10^3/uL; Hematocrit 44.4 % (37-47); Hemoglobin 14.5 g/dL (12.0-15.0); Lymphocyte # 2.08 X10^3/ul (0.83-4.51); Lymphocyte % 30.2 % (19-41); Mean Corp Hgb Conc 32.7 g/dL (32-36); Mean Corpuscular Hgb 28.7 pg (27.0-32.0); Mean Corpuscular Volume 87.7 fL (81-99); Mean Platelet Vol. 10.7 fl (6.2-12.0); Monocyte# 0.96 X10^3/uL; Monocyte% 13.9 % (0-10); NRBC Flagged by Analyzer 0 % (0-5); Neutrophil # 3.62 X10^3/uL (2.7-7.7); Neutrophil % 52.6 % (47-70); Platelet Count 303 K/mm3 (150-450); RBC Distribution Width CV 13.1 % (11.6-14.6); Red Blood Count 5.06 M/mm3 (4.2-5.4); White Blood Count 6.9 K/mm3 (4.4-11.0)
[2022-07-21 06:56] VITALS: PULSE 54; RESP 16; O2SAT 94
[2022-07-21] MEDS: Budesonide Respules 0.5 MG/2 ML AMPUL.NEB. INHALATION (06:56)
[2022-07-21] MEDS: Albuterol 2.5 MG/3 ML VIAL.NEB. INHALATION (06:56)
[2022-07-21 07:04] LABS: AST(SGOT) 16 U/L (15-37); Alanine Aminotransfer ALT/SGPT 22 U/L (13-56); Albumin, Serum 3.1 g/dL (3.2-5.0); Alkaline Phosphatase 65 U/L (45-117); Anion Gap 3 (5-15); BUN 17 mg/dL (7-18); BUN/Creat Ratio 21.1 RATIO (10-20); Calcium,Total 8.8 mg/dL (8.5-10.1); Chloride 104 mmol/L (98-107); Creatinine, Serum 0.81 mg/dL (0.55-1.02); EST Glomerular Filtration Rate 74 mL/min (>60); Est Glom Filt Rate - Afr Amer 90 mL/min (>60); Estimated Creatinine Clearance 48.07 ml/min; Globulin 3.1 g/dL (2.2-4.2); Glucose 96 mg/dL (74-106); Magnesium 2.1 mg/dL (1.6-2.6); Phosphorus 3.3 mg/dL (2.5-4.9); Potassium 3.9 mmol/L (3.5-5.1); Protein, Total 6.2 g/dL (6.4-8.2); Sodium Level 138 mmol/L (136-145); Thyroid Stim Hormone (TSH) 0.41 uIU/mL (0.358-3.74)
[2022-07-21 08:41] VITALS: BP 141/58; PULSE 64; RESP 16; TEMP 36.9; O2SAT 94
[2022-07-21] MEDS: Acetaminophen 325 MG Tablet 650 MG PO (08:47)
[2022-07-21 08:48] VITALS: BP 141/58; PULSE 64
[2022-07-21] MEDS: Cholecalciferol (VIT D3) 25 MCG TABLET (1,000 UNITS) 100 MCG PO (08:48)
[2022-07-21] MEDS: DULoxetine Hcl 60 MG Capsule PO (08:48)
[2022-07-21] MEDS: Potassium Chloride Oral Tablet 20 MEQ PO (08:48)
[2022-07-21] MEDS: Metoprolol(XL)Succ 100 MG Tablet PO (08:48)
[2022-07-21] MEDS: Chlorthalidone 50 MG Tablet 25 MG PO (08:48)
[2022-07-21] MEDS: APIXABAN 5 MG TABLET PO (08:49)
--- NOTE | 2022-07-21 11:16 | CASEMGMT ---
Patient has a Healthcare Power of Survey Interviewer and Healthcare Living Will. Patient is aware they are not on file at [facility]. Patient's daughter Shannan is her Healthcare Power of Survey Interviewer. Lisbet CORONADO
--- NOTE | 2022-07-21 11:24 | DCINST_ITS ---
Discharge Instructions Diet Discharge Diet: No restrictions Activity Discharge Activity: Return to Normal Activity Dressing / Incision Call your doctor if you observe: Fever of 101 or Higher, Shortness of breath, Dizziness, Fainting spells, Swelling in the ankles, Chest pain and Increased palpitations (irregular heartbeat) Follow Up Care Test Results: Test results from this visit will be discussed in further detail at your follow- up appointment, if applicable. Discharge Plan Admission Admit Date/Time: 07/20/22 11:10 Attending Provider: Everett Avila Primary Care Provider: Ana Lilia Parker Consulting Providers: Nena Bruno ; Valerie Montano Discharge Orders/Prescriptions Prescriptions: Continued levothyroxine [Synthroid] 112 mcg tablet 112 mcg PO DAILY alendronate 70 mg tablet 70 mg PO SA potassium chloride 20 mEq tablet extended release 1 ea PO BID chlorthalidone 25 MG tablet 25 mg PO DAILY duloxetine 60 MG capsule 60 mg PO DAILY Eliquis 5 mg tablet 5 mg PO BID metoprolol succinate 100 mg tablet extended release 24 hr 100 mg PO DAILY albuterol sulfate 90 mcg/actuation HFA aerosol inhaler 2 inh INHALATION 4X/DAY calcium carbonate-vitamin D3 [Calcium 500 + D] 500 mg-10 mcg (400 unit) Tablet 1 tab PO QHS Qvar RediHaler 80 mcg/actuation HFA aerosol breath activated 2 inh INHALATION BID Referrals / Follow Up: Ana Lilia Parker DO [Primary Care Provider] - Within 1 Week Leila Burroughs PA [Med Staff - Adv Practice Prof] - Within 3 Months Disposition Disposition (needs filled in before D/C Order can be placed): Home, Self Care
[2022-07-21] MEDS: Calcium (Elemental) 500 MG Tablet 1000 MG PO (11:37)
--- NOTE | 2022-07-21 11:57 | CASEMGMT ---
JOHN DEAL in to complete CHAN form with patient. JOHN DEAL explained CHAN form to patient, patient voiced understanding. Patient signed CHAN form and filed in chart. Patient provided copy of signed CHAN form. Patient had no further questions or concerns at this time.
--- NOTE | 2022-07-21 12:05 | PHA.DC.MR ---
Pharmacy Service has performed discharge medication reconciliation for this patient. The patient's discharge medication list was reviewed for discrepancies and discrepancies were resolved. Home Medications chlorthalidone 25 mg tablet 25 mg PO DAILY blood pressure 12/06/19 duloxetine 60 mg capsule,delayed release 60 mg PO DAILY DEPRESSION 12/06/19 alendronate 70 mg tablet 70 mg PO SA OSTEOPEROSIS 05/28/21 levothyroxine 112 mcg tablet (Synthroid) 112 mcg PO DAILY THYROID 12/13/21 apixaban 5 mg tablet (Eliquis) 5 mg PO BID AFIB 05/03/22 metoprolol succinate 100 mg tablet,extended release 24 hr 100 mg PO DAILY BLOOD PRESSURE 05/03/22 potassium chloride 20 mEq tablet,extended release 1 ea PO BID SUPPLEMENT 06/16/22 albuterol sulfate 90 mcg/actuation aerosol inhaler 2 inh inhalation 4X/DAY COUGH 07/20/22 beclomethasone dipropionate 80 mcg/actuation HFA breath activated aerosol (Qvar RediHaler) 2 inh inhalation BID COUGH 07/20/22 calcium carbonate 500 mg-vitamin D3 10 mcg (400 unit) tablet (Calcium 500 + D) 1 tab PO QHS SUPPLEMENT 07/20/22
--- NOTE | 2022-07-21 15:34 | DS.PCM_ITS ---
Providers Date of Admission: 07/20/22 Primary Care Physician: Dr. Ana Lilia Parker, Consultations 07/20/22 12:37 Consult: Cardiology Routine Consulting Provider: Nena Bruno Reason for Consult: Afib with RVR EMERGENT Consult: No MD Notified: Yes Date Notified: 07/20/22 Time Notified: 11:13 Method of Notification: ED Physician Initiated Reason For Visit: AFIB WITH RVR Diagnosis Discharge Diagnosis (1) Atrial fibrillation with RVR: Status: Acute Code(s): I48.91 - Unspecified atrial fibrillation (2) Palpitations: Status: Acute Code(s): R00.2 - Palpitations Medications at Discharge Home Medications chlorthalidone 25 mg tablet 25 mg PO DAILY blood pressure 12/06/19 duloxetine 60 mg capsule,delayed release 60 mg PO DAILY DEPRESSION 12/06/19 alendronate 70 mg tablet 70 mg PO SA OSTEOPEROSIS 05/28/21 levothyroxine 112 mcg tablet (Synthroid) 112 mcg PO DAILY THYROID 12/13/21 apixaban 5 mg tablet (Eliquis) 5 mg PO BID AFIB 05/03/22 metoprolol succinate 100 mg tablet,extended release 24 hr 100 mg PO DAILY BLOOD PRESSURE 05/03/22 potassium chloride 20 mEq tablet,extended release 1 ea PO BID SUPPLEMENT 06/16/22 albuterol sulfate 90 mcg/actuation aerosol inhaler 2 inh inhalation 4X/DAY COUGH 07/20/22 beclomethasone dipropionate 80 mcg/actuation HFA breath activated aerosol (Qvar RediHaler) 2 inh inhalation BID COUGH 07/20/22 calcium carbonate 500 mg-vitamin D3 10 mcg (400 unit) tablet (Calcium 500 + D) 1 tab PO QHS SUPPLEMENT 07/20/22 Hospital Course Operations None Procedures None Summary of Care Provided Minutes Spent on Discharge: 36 Hospital Course: Per HPI: BECKY GARZA, is a 71 F who presented to the emergency department at [facility] on 07/20/2022 when she developed sudden onset of palpitations while at [employer] approximately 1 hour prior to arrival.? She had some mild lightheadedness associated but no chest pain.? She has a history of atrial fibrillation that was diagnosed in February 2022 and is on metoprolol 100 mg daily as well as Eliquis.? She is compliant with her home medications.? 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 She follows with Dr. Valle at baseline and was recently evaluated by EP at [facility].? Evidently, there is discussion of possible recurrent ablation for atrial fibrillation versus antiarrhythmic therapy and she was planning on discussing this with Dr. Valle before making a decision.? She complains of a cough that has been lingering but no fevers or chills.? Overall she been feeling quite well up until the event that brought her in today. Vital signs on presentation demonstrated temperature of 97.1, heart rate 153, blood pressure initially 174/148 however since initiation of Cardizem drip blood pressures have been 112-118/62-69, respiratory rate 17, oxygen saturations are 94% on room air.? CBC shows erythrocytosis that is new but is otherwise unremarkable.? Her chemistry panel shows mild hyponatremia of the sodium of 134 but is otherwise normal.? Serum glucose is 131 but is nonfasting.? Magnesium level is normal at 2.2.? Chest x-ray showed no radiographic evidence of any acute cardiopulmonary process.? EKG shows atrial fibrillation with a rate of [address] depression in the anterior lateral leads with no elevation.? This is suspected related to demand ischemia with her heart rate. Case was discussed with cardiology in the emergency department and the emergency department physician was planning on cardioverting her however cardiology wanted her placed on a Cardizem drip and admitted to the hospital.? Cardizem drip was initiated prior to admission. Hospital Course: 1. A-fib with RVR/HTN/HLD/history of WPW?71-year-old female presented to the hospital with palpitations that started at [employer] about an hour prior to admission. In the ER she was started on a Cardizem drip and converted to normal sinus rhythm within a few minutes. She is feeling much better today and I discussed with her the possibility for discharge she expressed understanding of the risk benefits of going home and would like to go home today. TSH was normal and she remained in normal sinus rhythm overnight just on her home beta-eva. We will plan to discharge her and follow-up with cardiology as an outpatient for possible antiarrhythmic versus ablation. She did have an ablation for WPW. The rest of her medications were resumed on discharge. 2. Osteoporosis, depression, hypothyroidism are chronic medical conditions which complicate her care. Her home medications were continued where appropriate Physical Exam Narrative General: Alert, Oriented x3, Cooperative, No apparent distress HEENT: Atraumatic, PERRLA, EOMI, Normocephalic Oral: Moist Mucosa Neck: Supple, No JVD Lungs: Clear to auscultation, Normal air movement, No rhonchi, No wheeze, No rales Cardiovascular: Regular rate, Regular Rhythm, Normal S1, Normal S2, No murmurs Abdomen: Soft, Non Tender, Non-Distended, No Hepato-splenomegaly Extremities: No edema, Capillary Refill Less than 3 Seconds Skin: No rashes, No breakdown Musculoskeletal: No Tenderness to Palpation of Joints or Extremities Neurological: Cranial nerves II-XII grossly intact, Motor Exam 5/5 strength throughout, Sensory exam intact to light touch and pain Psych/Mental Status: Normal Affect, Appropriate Weight / BMI Weight Weight: 160 lb 7.944 oz Body Mass Index (BMI) 30.3 ABG / Lab / Microbiology Data Result Diagrams: 07/21/22 05:55 07/21/22 05:55 Laboratory: Laboratory Results - last 24 hr 07/20/22 14:42: Troponin I High Sens 18 07/20/22 18:34: Troponin I High Sens 16 07/21/22 05:55: WBC 6.9, RBC 5.06, Hgb 14.5, Hct 44.4, MCV 87.7, MCH 28.7, MCHC 32.7, RDW Std Deviation 42.0, RDW Coeff of Luiza 13.1, Plt Count 303, MPV 10.7, Immature Gran % (Auto) 0.400, Neut % (Auto) 52.6, Lymph % (Auto) 30.2, [place] % (Auto) 13.9 H, Eos % (Auto) 2.0, Baso % (Auto) 0.9, Absolute Neuts (auto) 3.6, Absolute Lymphs (auto) 2.08, Nucleated RBC % 0 07/21/22 05:55: Sodium 138, Potassium 3.9, Chloride 104, Carbon Dioxide 31.0, Anion Gap 3 L, BUN 17, Creatinine 0.81, Estim Creat Clear Calc 48.07, Est GFR (MDRD) Af Amer 90, Est GFR (MDRD) Non-Af 74, BUN/Creatinine Ratio 21.1 H, Glucose 96, Calcium 8.8, Phosphorus 3.3, Magnesium 2.1, Total Bilirubin 0.50, AST 16, ALT 22, Alkaline Phosphatase 65, Total Protein 6.2 L, Albumin 3.1 L, Globulin 3.1, Albumin/Globulin Ratio 1.0, TSH 0.41 D/C Instructions Discharge Diet: No restrictions Call your doctor if you observe: Fever of 101 or Higher, Shortness of breath, Dizziness, Fainting spells, Swelling in the ankles, Chest pain and Increased palpitations (irregular heartbeat) Meaningful Use Info Meaningful Use Diagnoses (Choose all that apply): None applicable Discharge Plan Admission Admit Date/Time: 07/20/22 11:10 Attending Provider: Everett Avila Primary Care Provider: Ana Lilia Parker Consulting Providers: Nena Bruno ; Valerie Montano Discharge Orders/Prescriptions Prescriptions: Continued levothyroxine [Synthroid] 112 mcg tablet 112 mcg PO DAILY alendronate 70 mg tablet 70 mg PO SA potassium chloride 20 mEq tablet extended release 1 ea PO BID chlorthalidone 25 MG tablet 25 mg PO DAILY duloxetine 60 MG capsule 60 mg PO DAILY Eliquis 5 mg tablet 5 mg PO BID metoprolol succinate 100 mg tablet extended release 24 hr 100 mg PO DAILY albuterol sulfate 90 mcg/actuation HFA aerosol inhaler 2 inh INHALATION 4X/DAY calcium carbonate-vitamin D3 [Calcium 500 + D] 500 mg-10 mcg (400 unit) Tablet 1 tab PO QHS Qvar RediHaler 80 mcg/actuation HFA aerosol breath activated 2 inh INHALATION BID Referrals / Follow Up: Ana Lilia Parker DO [Primary Care Provider] - Within 1 Week Leila Burroughs PA [Med Staff - Adv Practice Prof] - Within 3 Months Disposition Disposition (needs filled in before D/C Order can be placed): Home, Self Care Charges/Coding Visit Charges Inpatient E&M: 84349 Disch Hosp >30min
--- NOTE | 2022-07-22 05:12 | EKG12_ITS ---
Test Reason : Blood Pressure : / mmHG Vent. Rate : 055 BPM Atrial Rate : 055 BPM P-R Int : 180 ms QRS Dur : 082 ms QT Int : 452 ms P-R-T Axes : 043 027 058 degrees QTc Int : 432 ms Sinus bradycardia Otherwise normal ECG Confirmed by GERMAINE ROOT, SHIVANI ([id number]), electronic news gathering editor SHELLIE FITZPATRICK ([id number]) on 07/23/2022 1:26:55 PM Referred By: Dusty Confirmed By:SHIVANI HERRON MD
== END 2022-07-21 13:21 | disposition home or self-care (01) ==
LOC: ED 11:04 → PCU 11:26
PROVIDERS: Admitting Provider Internal Medicine; Emergency Provider Emergency Medicine; PCP Internal Medicine; Visit Provider Family Medicine
DX: I48.0 Paroxysmal atrial fibrillation (principal); E87.1 Hypo-osmolality and hyponatremia; E03.9 Hypothyroidism, unspecified; Z86.16 Personal history of COVID-19; Z79.83 Long term (current) use of bisphosphonates; Z79.01 Long term (current) use of anticoagulants; I10 Essential (primary) hypertension; R42 Dizziness and giddiness; M81.0 Age-related osteoporosis without current pathological fracture; Z79.899 Other long term (current) drug therapy; Z79.890 Hormone replacement therapy; F32.A Depression, unspecified; J45.909 Unspecified asthma, uncomplicated
CPT/HCPCS: 36415; 71045; 80048; 80053; 83735; 84100; 84443; 84484; 85025; 93005; 94640; 94668; 96365; 96375; 99221; 99252; 99285; A4216; G0378; G0463

== ENCOUNTER → 2022-09-18 | Outpatient (CLI) | payer MEDICARE, SELFPAY ==
[2022-09-18 09:29] LABS: Erythrocyte Sedimentation Rate 2 mm/hr (0-30)
[2022-09-18 09:31] LABS: Absolute Lymphocyte Count 1.29 X10^3/uL (0.83-4.51); Absolute Neutrophil Count 3.6 X10^3/uL (2.0-7.7); Basophil# 0.08 X10^3/uL; Basophil% 1.4 % (0-1); Eosinophil# 0.21 X10^3/uL; Eosinophils% 3.5 % (0-5); Hematocrit 44.5 % (37-47); Hemoglobin 14.8 g/dL (12.0-15.0); Lymphocyte # 1.29 X10^3/ul (0.83-4.51); Lymphocyte % 21.8 % (19-41); Mean Corp Hgb Conc 33.3 g/dL (32-36); Mean Corpuscular Hgb 28.3 pg (27.0-32.0); Mean Corpuscular Volume 85.1 fL (81-99); Mean Platelet Vol. 10.8 fl (6.2-12.0); Monocyte% 11.8 % (0-10); NRBC Flagged by Analyzer 0 % (0-5); Neutrophil # 3.62 X10^3/uL (2.7-7.7); Neutrophil % 61.2 % (47-70); Platelet Count 346 K/mm3 (150-450); RBC Distribution Width CV 12.5 % (11.6-14.6); RBC Distribution Width SD 38.4 fl (35.1-43.9); Red Blood Count 5.23 M/mm3 (4.2-5.4); White Blood Count 5.9 K/mm3 (4.4-11.0)
[2022-09-18 09:53] LABS: Vitamin B12 326 pg/mL (211-911); Vitamin D,25 Hydroxy 52.2 ng/mL
[2022-09-18 09:57] LABS: Hemoglobin A1c 5.9 % (3.8-5.6)
[2022-09-18 10:32] LABS: AST(SGOT) 20 U/L (15-37); Alanine Aminotransfer ALT/SGPT 23 U/L (13-56); Albumin, Serum 3.3 g/dL (3.2-5.0); Alkaline Phosphatase 69 U/L (45-117); Anion Gap 1 (5-15); BUN 11 mg/dL (7-18); BUN/Creat Ratio 14.6 RATIO (10-20); CRP < 2.90 mg/L (0.0-3.0); Calcium,Total 9.1 mg/dL (8.5-10.1); Chloride 99 mmol/L (98-107); Cholesterol 186 mg/dL (200); Creatinine, Serum 0.75 mg/dL (0.55-1.02); EST Glomerular Filtration Rate 81 mL/min (>60); Est Glom Filt Rate - Afr Amer 97 mL/min (>60); Globulin 3.3 g/dL (2.2-4.2); Glucose 106 mg/dL (74-106); High Density Lipoprotein 54 mg/dL; Potassium 3.5 mmol/L (3.5-5.1); Protein, Total 6.6 g/dL (6.4-8.2); Rheumatoid Factor < 10.0 IU/mL (<15); Sodium Level 132 mmol/L (136-145); Thyroid Stim Hormone (TSH) 0.57 uIU/mL (0.358-3.74); Triglycerides 54 mg/dL; Very Low Density Lipoprotein 11 mg/dL (5-40)
== END | disposition home or self-care (01) ==
LOC: LAB 08:52
PROVIDERS: PCP Internal Medicine; Referring Provider Internal Medicine; Visit Provider Internal Medicine
DX: E88.89 Other specified metabolic disorders (principal); E87.6 Hypokalemia; R53.83 Other fatigue; I10 Essential (primary) hypertension
CPT/HCPCS: 36415; 80053; 80061; 82306; 82607; 83036; 84443; 85025; 85652; 86140; 86431

== ENCOUNTER 2023-02-27 19:28 | Emergency (ER) | payer MEDICARE, SELFPAY ==
[2023-02-27 19:29] VITALS: BP 170/125; PULSE 88; RESP 16; TEMP 36.2; O2SAT 100; BMI 29.2
[2023-02-27 19:31] VITALS: BP 170/125; PULSE 88; RESP 16; TEMP 36.2; O2SAT 99
--- NOTE | 2023-02-27 20:15 | EDS_ITS ---
HPI History of Present Illness Chief Complaint: Dental Narrative Narrative: 72-year-old female presenting with left lower dental pain. Patient states he lost ground a long time ago. She states it was not bothering her so she did not do anything about it. Been having pain in the left lower teeth for couple of days. Denies any new trauma. Denies difficulty swallowing or breathing. No facial swelling. She presents today for antibiotics and something controlled the pain. She has made a dental appointment for Thursday of next week. [facility] Medical History Abnormal mammogram of left breast Cataract Chest pain Chronic anticoagulation COVID-19 (04/23/21) Depression Essential hypertension Family history of [place] (myocardial infarction) History of Fcndz-Zahjsczks-Eyrkm (WPW) syndrome Hypothyroidism Nondisplaced fracture of fifth left metatarsal bone Nondisplaced fracture of fifth right metatarsal bone Over 65 years old Paroxysmal atrial fibrillation with RVR SVT (supraventricular tachycardia) WPW (Wwcwe-Rngzujyrn-Fdnru syndrome) Home Medications chlorthalidone 25 mg tablet 25 mg PO DAILY blood pressure 12/06/19 [History Last Taken Unknown] duloxetine 60 mg capsule,delayed release 60 mg PO DAILY DEPRESSION 12/06/19 [History Last Taken 07/20/22] alendronate 70 mg tablet 70 mg PO SA OSTEOPEROSIS 05/28/21 [History Last Taken 07/19/22] levothyroxine 112 mcg tablet (Synthroid) 112 mcg PO DAILY THYROID 12/13/21 [History Last Taken 07/20/22] apixaban 5 mg tablet (Eliquis) 5 mg PO BID AFIB 05/03/22 [History Last Taken 07/20/22] metoprolol succinate 100 mg tablet,extended release 24 hr 100 mg PO DAILY BLOOD PRESSURE 05/03/22 [History Last Taken 07/20/22] calcium carbonate 500 mg-vitamin D3 10 mcg (400 unit) tablet (Calcium 500 + D) 1 tab PO QHS SUPPLEMENT 07/20/22 [History Last Taken 07/04/22] albuterol sulfate 90 mcg/actuation aerosol inhaler 2 inh inhalation 4X/DAY PRN COUGH 08/01/22 [History Last Taken Unknown] beclomethasone dipropionate 80 mcg/actuation HFA breath activated aerosol (Qvar RediHaler) 2 inh inhalation QAM COUGH 11/14/22 [History Last Taken Unknown] mirabegron 25 mg tablet,extended release 24 hr (Myrbetriq) 25 mg PO DAILY 11/14/22 [History Last Taken Unknown] omeprazole 40 mg capsule,delayed release 40 mg PO DAILY 11/14/22 [History Last Taken Unknown] amoxicillin 875 mg-potassium clavulanate 125 mg tablet 1 tab PO BID #20 tabs 02/27/23 [Rx Last Taken Unknown] hydrocodone-acetaminophen 5-325mg 5mg-325mg 1 tab PO Q6H PRN pain 1 day #4 TABLETS 02/27/23 [Rx Last Taken Unknown] Allergy/AdvReac Type Severity Reaction Status Date / Time Anesthetics - Amide Type - AdvReac Nausea/Vom Verified 02/27/23 19:28 [facility] - Rafaela Type- AdvReac Nausea/Vom Verified 02/27/23 19:28 Parabens Family History Other Diabetes Heart disease Hypertension Myocardial infarction Surgical History History of bilateral cataract extraction (~02/2022) History of left heart catheterization (LHC) (~08/28/20) History of radiofrequency ablation procedure for cardiac arrhythmia (~2002) Hx of hernia repair Hx of thyroidectomy Hx of tubal ligation Social History Smoking Status: Never smoker alcohol intake: never substance use type: does not use caffeine: Yes Type: tea Number of servings: 6 ROS ROS ED Constitutional Constitutional ED: Denies chills, fever(s) or sweats Eyes Eyes: Denies blurry vision or change in vision ENT ENT ED: Reports other Details: Dental pain ; Denies ear pain or sore throat Cardiovascular Cardiovascular: Denies chest pain, palpitations or racing heartbeat Respiratory/Chest Respiratory/Chest: Denies cough, dyspnea or sputum Gastrointestinal Gastrointestinal: Denies abdominal pain, constipation, diarrhea, nausea or vomiting Genitourinary Genitourinary ED: Denies dysuria, hematuria or urinary frequency Musculoskeletal Musculoskeletal: Denies arthralgias, myalgias or neck pain Integumentary Denies abscess, Abrasions or rash Neurologic Neurologic: Denies headache(s), paresthesias or weakness Psychiatric Psychiatric: Denies anxiety, depression, suicidal ideation or suicidal thoughts Endocrine Endocrinology: Denies polydipsia or polyuria EXAM Physical Exam Const Vital Signs: 02/27/23 19:29 02/27/23 19:31 Temperature 97.2 F L 97.2 F L Temperature Source Temporal Temporal Pulse Rate 88 88 Respiratory Rate 16 16 Blood Pressure 170/125 H 170/125 H Blood Pressure Mean 140 140 Pulse Ox 100 99 Positive well nourished General Appearance ED: NAD HEENT HEENT Narrative: Dental caries. There is percussion tenderness to the lower teeth on the left fairly diffusely. tenderness Mouth ED: Yes oral and palatal mucosa normal, Yes lips normal, Yes tongue normal and Yes salivary gland normal Mouth: oral and palatal mucosa normal, lips normal, tongue normal and salivary gland normal Eyes PERRL and EOMs intact bilaterally Chest Wall inspection of chest normal Resp normal respiratory effort and no retractions Cardio regular rate and regular rhythm GI normal to inspection, nondistended, normoactive bowel sounds Extremity normal to inspection Neuro oriented x3 and CN's II-XII intact bilaterally Sensorium / Orientation: alert Motor Exam: strength 5/5 throughout Psych mental status grossly normal Skin no rashes or lesions noted MDM MDM MDM Narrative Medical decision making narrative: Patient presenting with dental pain. As well she has poor dentition and dental caries. She will require dental repair/excision. She will be placed on Augmentin tonight. She will also be given a short supply of [place]. Patient has a follow-up appointment on Thursday of next week. Patient discharged stable condition. Impression: 1. Dental caries 2. Dental pain Discharge Plan Triage Chief Complaint: Dental ED Provider: Gaetano Hunter Dx/Rx/DC Orders Instructions: ED Dental Pain, ED Dental Cavity Prescriptions: New amoxicillin-pot clavulanate 875-125 mg tablet 1 tab PO BID Qty: 20 0RF hydrocodone-acetaminophen 5-325 mg tablet 1 tab PO Q6H PRN (Reason: pain) 1 Days Qty: 4 0RF No Action levothyroxine [Synthroid] 112 mcg tablet 112 mcg PO DAILY alendronate 70 mg tablet 70 mg PO SA Myrbetriq 25 mg tablet extended release 24 hr 25 mg PO DAILY Patient Comments: take 1 tablet by mouth once daily omeprazole 40 mg capsule,delayed release(DR/EC) 40 mg PO DAILY Patient Comments: take 1 capsule by mouth once daily chlorthalidone 25 MG tablet 25 mg PO DAILY duloxetine 60 MG capsule 60 mg PO DAILY Eliquis 5 mg tablet 5 mg PO BID metoprolol succinate 100 mg tablet extended release 24 hr 100 mg PO DAILY calcium carbonate-vitamin D3 [Calcium 500 + D] 500 mg-10 mcg (400 unit) Tablet 1 tab PO QHS albuterol sulfate 90 mcg/actuation HFA aerosol inhaler 2 inh INHALATION 4X/DAY PRN (Reason: COUGH) Qvar RediHaler 80 mcg/actuation HFA aerosol breath activated 2 inh INHALATION QAM Primary Care Provider: Ana Lilia Parker Referrals: Ana Lilia Parker DO [Primary Care Provider] - Disposition Disposition: Home, Self Care Discharge Date/Time: 02/27/23 20:10
== END 2023-02-27 20:10 | disposition home or self-care (01) ==
LOC: ED 20:03
PROVIDERS: Emergency Provider Student in an Organized Health Care Education/Training Program; PCP Internal Medicine; Visit Provider Student in an Organized Health Care Education/Training Program
DX: K02.9 Dental caries, unspecified (principal); I10 Essential (primary) hypertension
CPT/HCPCS: 99282

== ENCOUNTER 2023-06-19 15:57 | Emergency (ER) | payer MEDICARE, SELFPAY ==
[2023-06-19] VITALS (35 sets, daily range): BP systolic 78–143; BP diastolic 49–129; PULSE 51–167; RESP 10–28; TEMP 37.2; O2SAT 93–100; BMI 29.7
--- NOTE | 2023-06-19 16:07 | ED.VIS.CHEST ---
HPI History of Present Illness Chief Complaint: Chest Pain [facility] Medical History Abnormal mammogram of left breast Cataract Chest pain Chronic anticoagulation COVID-19 (04/23/21) Depression Essential hypertension Family history of [place] (myocardial infarction) History of Zllts-Zajpcahgi-Jrbsb (WPW) syndrome Hypothyroidism MDD (major depressive disorder) Nondisplaced fracture of fifth left metatarsal bone Nondisplaced fracture of fifth right metatarsal bone Over 65 years old Paroxysmal atrial fibrillation with RVR SVT (supraventricular tachycardia) WPW (Xdvdw-Rgbtlzalr-Oihhz syndrome) Home Medications chlorthalidone 25 mg tablet 25 mg PO DAILY blood pressure 12/06/19 [History Last Taken Unknown] alendronate 70 mg tablet 70 mg PO SA OSTEOPEROSIS 05/28/21 [History Last Taken 07/19/22] levothyroxine 112 mcg tablet (Synthroid) 112 mcg PO DAILY THYROID 12/13/21 [History Last Taken 07/20/22] calcium carbonate 500 mg-vitamin D3 10 mcg (400 unit) tablet (Calcium 500 + D) 1 tab PO QHS SUPPLEMENT 07/20/22 [History Last Taken 07/04/22] albuterol sulfate 90 mcg/actuation aerosol inhaler 2 inh inhalation 4X/DAY PRN COUGH 08/01/22 [History Last Taken Unknown] mirabegron 25 mg tablet,extended release 24 hr (Myrbetriq) 25 mg PO DAILY 11/14/22 [History Last Taken Unknown] omeprazole 40 mg capsule,delayed release 40 mg PO DAILY 11/14/22 [History Last Taken Unknown] apixaban 5 mg tablet (Eliquis) See Rx Instructions .Route .COMPLEX #180 tabs 03/19/23 [Rx Last Taken Unknown] metoprolol succinate 100 mg tablet,extended release 24 hr 100 mg PO DAILY BLOOD PRESSURE #90 tabs 04/10/23 [Rx Last Taken Unknown] duloxetine 60 mg capsule,delayed release 60 mg PO DAILY DEPRESSION #90 caps 04/30/23 [Rx Last Taken Unknown] beclomethasone dipropionate 80 mcg/actuation HFA breath activated aerosol (Qvar RediHaler) 2 inh inhalation BID COUGH 06/17/23 [History Last Taken Unknown] fluticasone propionate 50 mcg/actuation nasal spray,suspension (Flonase Allergy Relief) 1 spray intranasal BID 06/17/23 [History Last Taken Unknown] potassium chloride 20 mEq tablet,extended release 20 meq PO BID 06/19/23 [History Last Taken Unknown] Allergy/AdvReac Type Severity Reaction Status Date / Time Anesthetics - Amide Type - AdvReac Nausea/Vom Verified 06/19/23 16:03 [facility] - Rafaela Type- AdvReac Nausea/Vom Verified 06/19/23 16:03 Parabens Family History Other Diabetes Heart disease Hypertension Myocardial infarction Surgical History History of bilateral cataract extraction (~02/2022) History of left heart catheterization (LHC) (~08/28/20) History of radiofrequency ablation procedure for cardiac arrhythmia (~2002) Hx of hernia repair Hx of thyroidectomy Hx of tubal ligation Social History Smoking Status: Never smoker alcohol intake: never substance use type: does not use caffeine: Yes Type: tea Number of servings: 6 EXAM Physical Exam Const Vital Signs: 06/19/23 15:58 06/19/23 16:11 06/19/23 16:20 Temperature 98.9 F Temperature Source Temporal Pulse Rate 63 167 H Respiratory Rate 14 18 Respiratory Pattern Normal Blood Pressure 143/114 H 143/129 H Blood Pressure Mean 123 133 Pulse Ox 99 99 Oxygen Delivery Method Room Air Room Air 06/19/23 16:30 06/19/23 16:18 06/19/23 16:35 Temperature Temperature Source Pulse Rate 155 H 148 H Respiratory Rate 19 H 17 Respiratory Pattern Blood Pressure 105/58 L 111/68 Blood Pressure Mean 73 82 Pulse Ox 99 95 Oxygen Delivery Method Room Air Room Air Room Air 06/19/23 16:39 06/19/23 18:13 06/19/23 18:17 Temperature Temperature Source Pulse Rate 149 H 145 H 112 H Respiratory Rate 17 11 L 12 Respiratory Pattern Blood Pressure 104/78 115/88 H 101/54 L Blood Pressure Mean 86 97 69 Pulse Ox 96 97 95 Oxygen Delivery Method Room Air Room Air Room Air 06/19/23 16:44 06/19/23 16:45 06/19/23 16:50 Temperature Temperature Source Pulse Rate 146 H 135 H 125 H Respiratory Rate 23 H 22 H 19 H Respiratory Pattern Blood Pressure 92/71 Blood Pressure Mean 80 Pulse Ox 94 95 94 Oxygen Delivery Method 06/19/23 17:00 06/19/23 17:10 06/19/23 17:12 Temperature Temperature Source Pulse Rate 136 H 134 H 136 H Respiratory Rate 28 H 17 22 H Respiratory Pattern Blood Pressure 131/100 H 101/70 Blood Pressure Mean 111 81 Pulse Ox 96 94 94 Oxygen Delivery Method 06/19/23 17:15 06/19/23 17:20 06/19/23 17:27 Temperature Temperature Source Pulse Rate 145 H 137 H 116 H Respiratory Rate 18 17 12 Respiratory Pattern Blood Pressure 86/71 L 114/61 Blood Pressure Mean 77 77 Pulse Ox 96 95 95 Oxygen Delivery Method 06/19/23 17:30 06/19/23 17:32 06/19/23 17:34 Temperature Temperature Source Pulse Rate 135 H 143 H 153 H Respiratory Rate 13 17 15 Respiratory Pattern Blood Pressure 100/81 H 78/49 L 96/60 Blood Pressure Mean 89 59 73 Pulse Ox 97 94 97 Oxygen Delivery Method 06/19/23 17:40 06/19/23 17:45 06/19/23 17:50 Temperature Temperature Source Pulse Rate 125 H 130 H 131 H Respiratory Rate 13 22 H 12 Respiratory Pattern Blood Pressure 113/73 113/73 102/61 Blood Pressure Mean 86 86 73 Pulse Ox 96 97 100 Oxygen Delivery Method Room Air 06/19/23 18:00 06/19/23 18:10 06/19/23 18:12 Temperature Temperature Source Pulse Rate 137 H 155 H 119 H Respiratory Rate 17 13 17 Respiratory Pattern Blood Pressure 111/69 106/62 115/88 H Blood Pressure Mean 82 75 97 Pulse Ox 95 95 98 Oxygen Delivery Method 06/19/23 18:17 06/19/23 18:20 06/19/23 18:30 Temperature Temperature Source Pulse Rate 104 H 107 H 116 H Respiratory Rate 11 L 14 15 Respiratory Pattern Blood Pressure 101/54 L 104/62 108/75 Blood Pressure Mean 68 74 85 Pulse Ox 93 97 97 Oxygen Delivery Method Room Air MDM MDM MDM Narrative Medical decision making narrative: HISTORY OF PRESENT ILLNESS: 72-year-old female presents with chest pressure and palpitations. She states this began approximately 2 hours ago. She states she feels like I am on a rhythm . Notes some chest tightness and irregular heartbeat. Denies any recent illness, fever, cough. Denies any bleeding diathesis. States has been compliant with home Eliquis and metoprolol. Denies any leg swelling, denies any vomiting or diarrhea. The patient denies recent surgery in the last 4 weeks or immobilization in the last 3 days, denies previous diagnosis of DVT or PE, hemoptysis, unilateral leg swelling or malignancy with treatment the last 6 months or palliative. No estrogen use noted. Patient denies sudden onset of pain, no tearing sensation, no migratory symptoms, no new numbness, weakness or loss of sensation. Patient denies family history or personal history of Connective tissue disorders (Marfan's Syndrome, Brian Danlos etc) REVIEW OF SYSTEMS: Pertinent positives: Chest pressure, palpitations Pertinent negatives: Bleeding, vomiting, diarrhea, leg swelling, chest pain PHYSICAL EXAM: Nursing triage notes reviewed, Vital signs reviewed Constitutional: please see mdm HENT: MMM Eyes: Pupils equal round and reactive to light, Extraocular muscles intact Neck: No stridor, no JVD, full neck ROM Lungs: Clear to auscultation, No wheezing or rales. No increased work of breathing, no conversational dyspnea, no accessory muscle use, no nasal flaring. No respiratory distress noted Heart: Regular rate and rhythm, No murmurs, No rubs and No gallops, 2+ distal pulses (radial, femoral, posterior tibial) in all extremities Abdomen: Soft, there is no tenderness, rigidity, rebound or guarding, no obvious peritoneal signs, no palpable pulsatile abdominal masses, no auscultated abdominal bruit : No CVAT Extremities: No edema Neuro: No focal neurological deficits, cranial nerves II through XII intact, 5/5 strength in all extremities. Intact sensation to light touch in all extremities, 2+ reflexes bilateral patella tendons. Normal gait. No ataxia. Skin: No rash or lesions noted MEDICAL DECISION MAKING: Chief Complaint: Chest pain External records reviewed: Echocardiogram 2021 shows ejection fraction 75% Factors affecting care: Atrial fibrillation, WPW, Consults: none [facility] Narrative: Patient was initially tachycardic otherwise hemodynamically stable afebrile and nontoxic-appearing. Exam with irregularly irregular rhythm, fast. No leg swelling. No calf tenderness. Symmetric pulses throughout. Lungs were clear without rales or focal consolidative process. I considered the following differential diagnosis: Arrhythmia, anemia, ACS, electrolyte abnormality, I obtained a broad lab and imaging workup to further elucidate the etiology of the patient's complaints. I chose a rate control strategy and gave IV metoprolol 5 mg x 3 doses as well as her home metoprolol. Also resuscitate the patient 1 L normal saline fluid bolus. ALL IMAGES (IF OBTAINED) HAVE BEEN PERSONALLY REVIEWED AND INTERPRETED BY MYSELF. Initial EKG showed A-fib with RVR, normal axis, no obvious STEMI but there are some rate related ischemic changes noted. CBC with leukocytosis suggestive of systemic inflammation, no anemia or thrombocytopenia BMP with mild hypokalemia, no acute kidney injury, no anion gap or evidence of endorgan hypoperfusion High-sensitivity troponin is negative, no evidence of myocardial ischemia x 2 I have personally reviewed the patient's chest x-ray. Chest x-ray is unremarkable for pulmonary edema, pneumothorax, pneumonia or focal cardiopulmonary abnormality. The synthesis of the patient's history, physical exam, labs images suggest A-fib with RVR. Patient initially tried metoprolol both IV and oral. This did not control patient's rate so she is given 10 mg of IV diltiazem which converted to normal sinus rhythm. Patient was symptom-free. Patient main hemodynamically stable ambulated well and is appropriate for discharge home with close cardiology follow-up. The patient and/or family, caregivers express understanding. The patient and/or family, caregivers agrees with the plan. Shared decision making: I will have a discussion with the patient and or visitors regarding risk/benefits of further testing or admission. They will be made aware of of the risk/benefits inherent in this decision they will be given the opportunity to voice understanding. Total critical care time today provided was at least 0 minutes. This excludes separately billable procedures. Critical care time (if documented) is secondary to the patient having high probability of clinically significant/life threatening deterioration in the patient's condition which required my urgent intervention. Impression: 1. A-fib with RVR (resolved) Dispo: discharge This note was generated with [employer] dictation software. It may contain incorrect words, spelling, and punctuation that were not noted in review of the chart prior to signing. Lab Data Labs: Laboratory Results - last 24 hr 06/19/23 06/19/23 16:08 18:10 WBC 11.5 H RBC 5.18 Hgb 14.2 Hct 43.1 MCV 83.2 MCH 27.4 MCHC 32.9 RDW Std Deviation 39.4 RDW Coeff of Luiza 13.1 Plt Count 354 MPV 11.3 Immature Gran % (Auto) 0.300 Neut % (Auto) 62.8 Lymph % (Auto) 22.8 Cherry % (Auto) 10.7 H Eos % (Auto) 2.7 Baso % (Auto) 0.7 Absolute Neuts (auto) 7.2 Absolute Lymphs (auto) 2.62 Nucleated RBC % 0 Sodium 136 Potassium 3.3 L Chloride 103 Carbon Dioxide 28.0 Anion Gap 5 BUN 20 H Creatinine 1.05 H Estim Creat Clear Calc 45.49 Est GFR (MDRD) Af Amer 66 Est GFR (MDRD) Non-Af 55 L BUN/Creatinine Ratio 19.0 Glucose 140 H Calcium 9.4 Magnesium 2.2 Troponin I High Sens 7 16 Radiography Diagnostic Testing: Clinical Impression(s) from Imaging Studies Chest X-Ray 06/19/23 16:35 IMPRESSION: Minor right lower lobe atelectasis or chronic changes. No gross infiltration or pulmonary edema Electronically Signed: Shahbaz Lu MD at 16:55 EST Reading Location ID and State: [address] [place] [address] Tel , Service support , Discharge Plan Triage Chief Complaint: Chest Pain ED Provider: Thom Ponce Dx/Rx/DC Orders Clinical Impression: Paroxysmal atrial fibrillation with RVR Instructions: AFib Dc Prescriptions: No Action levothyroxine [Synthroid] 112 mcg tablet 112 mcg PO DAILY alendronate 70 mg tablet 70 mg PO SA Myrbetriq 25 mg tablet extended release 24 hr 25 mg PO DAILY Patient Comments: take 1 tablet by mouth once daily omeprazole 40 mg capsule,delayed release(DR/EC) 40 mg PO DAILY Patient Comments: take 1 capsule by mouth once daily duloxetine 60 mg capsule,delayed release(DR/EC) 60 mg PO DAILY Qty: 90 1RF fluticasone propionate [Flonase Allergy Relief] 50 mcg/actuation spray,suspension 1 spray intranasal BID Rx Instructions: administer into each nostril chlorthalidone 25 MG tablet 25 mg PO DAILY calcium carbonate-vitamin D3 [Calcium 500 + D] 500 mg-10 mcg (400 unit) Tablet 1 tab PO QHS albuterol sulfate 90 mcg/actuation HFA aerosol inhaler 2 inh INHALATION 4X/DAY PRN (Reason: COUGH) Qvar RediHaler 80 mcg/actuation HFA aerosol breath activated 2 inh INHALATION BID potassium chloride 20 mEq tablet extended release 20 meq PO BID Eliquis 5 mg tablet See Rx Instructions .ROUTE .COMPLEX Qty: 180 3RF Dose Instruction: take 1 tablet by mouth twice a day Rx Instructions: take 1 tablet by mouth twice a day metoprolol succinate 100 mg tablet extended release 24 hr 100 mg PO DAILY Qty: 90 3RF Primary Care Provider: Ana Lilia Parker Referrals: Narendra Duncan MD [Med Staff - Active Staff] - Ana Lilia Parker DO [Primary Care Provider] - Activity Restrictions/Additional Instructions: Thank you for trusting us with your care today! Please return to the emergency department if your symptoms change or worsen. Please follow with your primary care physician for further outpatient evaluation and management. Disposition Disposition: Home, Self Care
[2023-06-19] MEDS: Aspirin 81 MG TAB.CHEW 324 MG PO (16:23)
[2023-06-19] MEDS: Metoprolol Tartrate 5 MG/5 ML Vial IV ×3 (16:23→16:36)
[2023-06-19] MEDS: 0.9% Normal Saline (1000mL) 1,000 ML 999 ML IV (16:24)
[2023-06-19 16:30] LABS: Absolute Lymphocyte Count 2.62 X10^3/uL (0.83-4.51); Absolute Neutrophil Count 7.2 X10^3/uL (2.0-7.7); Basophil# 0.08 X10^3/uL; Basophil% 0.7 % (0-1); Eosinophil# 0.31 X10^3/uL; Eosinophils% 2.7 % (0-5); Hematocrit 43.1 % (37-47); Hemoglobin 14.2 g/dL (12.0-15.0); Lymphocyte # 2.62 X10^3/ul (0.83-4.51); Lymphocyte % 22.8 % (19-41); Mean Corp Hgb Conc 32.9 g/dL (32-36); Mean Corpuscular Hgb 27.4 pg (27.0-32.0); Mean Corpuscular Volume 83.2 fL (81-99); Mean Platelet Vol. 11.3 fl (6.2-12.0); Monocyte# 1.23 X10^3/uL; Monocyte% 10.7 % (0-10); NRBC Flagged by Analyzer 0 % (0-5); Neutrophil % 62.8 % (47-70); Platelet Count 354 K/mm3 (150-450); RBC Distribution Width CV 13.1 % (11.6-14.6); RBC Distribution Width SD 39.4 fl (35.1-43.9); Red Blood Count 5.18 M/mm3 (4.2-5.4); White Blood Count 11.5 K/mm3 (4.4-11.0)
[2023-06-19] MEDS: Metoprolol(XL)Succ 100 MG Tablet PO (16:33)
--- NOTE | 2023-06-19 16:35 | RAD_ITS ---
STUDY: X-RAY CHEST REASON FOR EXAM: Female, 72 years old. chest pain TECHNIQUE: AP portable COMPARISON: July 20, 2022 FINDINGS: Mildly prominent markings in the right lower lobe possibly atelectasis or chronic interstitial changes There is no demonstrated pleural abnormality. Normal size heart. Normal mediastinum and sam. Normal visualized pulmonary arteries. Normal visualized aortic arch and descending thoracic aorta. Dorsal spine and shoulders demonstrate degenerative change. Normal visualized ribs, and clavicles.. There is no demonstrated abnormality of the visualized soft tissue structures of the upper abdomen. RAD/Chest 1 View (Portable) IMPRESSION: Minor right lower lobe atelectasis or chronic changes. No gross infiltration or pulmonary edema Electronically Signed: Shahbaz Lu MD at 16:55 EST ,
[2023-06-19 17:01] LABS: Anion Gap 5 (5-15); BUN 20 mg/dL (7-18); Calcium,Total 9.4 mg/dL (8.5-10.1); Chloride 103 mmol/L (98-107); Creatinine, Serum 1.05 mg/dL (0.55-1.02); EST Glomerular Filtration Rate 55 mL/min (>60); Est Glom Filt Rate - Afr Amer 66 mL/min (>60); Estimated Creatinine Clearance 45.49 ml/min; Glucose 140 mg/dL (74-106); Magnesium 2.2 mg/dL (1.6-2.6); Potassium 3.3 mmol/L (3.5-5.1); Sodium Level 136 mmol/L (136-145); Troponin-I HS 7 pg/mL (3.0-54.0); Troponin-I HS (w/2H Reflex) 7 pg/mL (3.0-54.0)
[2023-06-19] MEDS: 0.9% Normal Saline (500mL Bag) 500 ML 999 ML IV (17:36)
[2023-06-19] MEDS: dilTIAZem 25 MG/5 ML Vial 10 MG IV BOLUS (18:14)
[2023-06-19 18:25] LABS: Reflex Troponin-HS? (from REC) Y
[2023-06-19 18:50] LABS: Troponin-I HS 16 pg/mL (3.0-54.0)
== END 2023-06-19 20:02 | disposition home or self-care (01) ==
PROVIDERS: Emergency Provider Emergency Medicine; PCP Internal Medicine; Visit Provider Emergency Medicine
DX: I48.0 Paroxysmal atrial fibrillation (principal); E87.6 Hypokalemia; R00.2 Palpitations; I10 Essential (primary) hypertension
CPT/HCPCS: 71045; 80048; 83735; 84484; 85025; 93005; 96361; 96374; 99285; J7030; A4216

== ENCOUNTER → 2023-07-06 | Outpatient (CLI) | payer MEDICARE, SELFPAY ==
--- NOTE | 2023-07-06 08:43 | BI_ITS ---
MAMMOGRAPHY - BILATERAL SCREENING REASON FOR EXAM: Female, 72 years old. Routine annual screening examination. PERTINENT HISTORY: Non-contributory. Prior left stereotactic breast biopsy. TECHNIQUE: Digital bilateral breast leesa (3D mammographic acquisition) in the CC and MLO projections. 2-D mediolateral oblique (MLO) and craniocaudad (CC) views of both breasts were obtained. CAD: Full Field Digital Mammography with Computer Added Detection was performed. COMPARISON: Comparison is made with prior study dated July 03, 2022 and May 10, 2021. FINDINGS: Breast Composition: The breasts are almost entirely fatty. There are no dominant masses or suspicious calcifications. A tissue clip marker is seen in the deep upper outer aspect of the left breast. The previously seen 8 mm nodular density is not seen at this time. No other significant abnormalities are identified. There has been no significant change since the prior study. BI/SCRN MAMM (CAD)W/LEESA BILAT IMPRESSION: Stable bilateral screening mammogram. Yearly follow-up mammogram recommended. (A) ASSESSMENT CATEGORY: BIRADS Category 2: Benign. A letter regarding these results will be sent to the patient by the facility within 30 days. Approximately 10% of breast cancers are not detected by mammography. A normal mammogram should not delay biopsy of a clinically suspicious abnormality. [id number] Electronically Signed: Kenton Person MD at 9:52 EST ,
== END | disposition home or self-care (01) ==
LOC: OPBI 08:42
PROVIDERS: PCP Internal Medicine; Referring Provider Internal Medicine; Visit Provider Internal Medicine
DX: Z12.31 Encounter for screening mammogram for malignant neoplasm of breast (principal)
CPT/HCPCS: 77063; 77067

== ENCOUNTER → 2023-08-27 | Outpatient (CLI) | payer MEDICARE, SELFPAY ==
--- NOTE | 2023-08-27 09:06 | ECHOCS_ITS ---
Version 2 Reason For Study: AFib Procedure This was a 2D Doppler, Color Flow transthoracic echocardiogram. The study was technically difficult. Contrast injection was performed. Exam performed in department. Left Ventricle Normal LV size. Apical false tendon noted. Left ventricular systolic function is normal. The left ventricular ejection fraction is 65 %. No regional wall motion abnormalities noted. Right Ventricle Normal RV size. Normal systolic function. Atria Normal left atrium. Normal right atrium. Mitral Valve Normal mitral valve. Tricuspid Valve Normal tricuspid valve. Mild tricuspid valve insufficiency. Pulmonary artery systolic pressure is 23 mmHg. Aortic Valve Trisinus/trileaflet aortic valve. Pulmonic Valve Normal pulmonic valve. Great Vessels Normal aortic root. The pulmonary artery is normal size. Normal inferior vena cava. Pericardium/Pleural No pericardial effusion. Medication 22 gauge I.V. with prn adaptor inserted into right arm. Diluted definity 2ml given slow IV push to enhance endocardial definition. MMode/2D Measurements & Calculations LVIDd: 3.9 cm IVSd: 1.00 cm Ao root diam: 3.3 cm LVIDs: 2.8 cm LVPWd: 0.93 cm LA dimension: 4.0 cm RVDd: 3.7 cm FS: 28.7 % LAV(MOD-bp): 47.9 ml LVAd ap4: 31.0 cm2 SV(MOD-sp4): 67.5 ml LAV(MOD-bp) Indexed: 27.4 ml/m2 LVLd ap4: 7.8 cm LAV(MOD-sp2): 34.8 ml EDV(MOD-sp4): 101.3 ml LAV(MOD-sp4): 63.7 ml EDV(sp4-el): 104.4 ml LVAs ap4: 15.4 cm2 LVLs ap4: 5.8 cm ESV(MOD-sp4): 33.9 ml ESV(sp4-el): 34.6 ml EF(MOD-sp4): 66.6 % EF(sp4-el): 66.9 % SV(sp4-el): 69.9 ml LA A4 area: 21.4 cm2 RA A4 area: 15.5 cm2 TAPSE: 2.3 cm Time Measurements MV dec time: 0.26 sec Doppler Measurements & Calculations MV E max [place]: 87.0 cm/sec Lat Peak E' [place]: 11.6 cm/sec Med Peak E' [place]: 8.5 cm/sec MV A max [place]: 82.2 cm/sec E/E' lat: 7.5 E/E' med: 10.2 MV E/A: 1.1 MV V2 max: 104.1 cm/sec MV P1/2t max [place]: 105.1 cm/sec Ao V2 max: 145.3 cm/sec MV max P.3 mmHg MV P1/2t: 90.9 msec Ao max P.5 mmHg MV V2 mean: 49.0 cm/sec Ao V2 mean: 104.5 cm/sec MV mean P.2 mmHg MV dec slope: 338.5 cm/sec2 Ao mean P.9 mmHg MV V2 VTI: 37.6 cm MVA(P1/2t): 2.4 cm2 Ao V2 VTI: 41.0 cm AV (velocity ratio): 0.79 LV V1 max: 121.5 cm/sec PA V2 max: 91.5 cm/sec TR max [place]: 219.1 cm/sec LV V1 max P.9 mmHg TR max P.2 mmHg LV V1 mean P.4 mmHg LV V1 mean: 86.6 cm/sec LV V1 VTI: 32.3 cm ECHO/Echo Complete W/ Contrast Interpretation Summary Normal LV size. Left ventricular systolic function is normal. The left ventricular ejection fraction is 65 %. Apical false tendon noted. Mild tricuspid valve insufficiency. Ordering Physician: To Hernandez Referring Physician: To Hernandez Performed By: Slava Lopez RCS
== END | disposition home or self-care (01) ==
LOC: CVS 09:03
PROVIDERS: PCP Internal Medicine; Referring Provider Internal Medicine Cardiovascular Disease; Visit Provider Internal Medicine Cardiovascular Disease
DX: I48.0 Paroxysmal atrial fibrillation (principal)
CPT/HCPCS: 93306; Q9957; A4216; C8929

== ENCOUNTER → 2023-12-14 | Outpatient (CLI) | payer MEDICARE, SELFPAY ==
[2023-12-14 07:25] LABS: Bacteria 0 SEEN /hpf (None Seen); Mucous, Urine 0 SEEN /hpf (<or=2+); White Blood Cells 0 SEEN /hpf (0-5)
[2023-12-14 07:43] LABS: Absolute Lymphocyte Count 1.65 X10^3/uL (0.83-4.51); Absolute Neutrophil Count 4.6 X10^3/uL (2.0-7.7); Basophil# 0.06 X10^3/uL; Basophil% 0.8 % (0-1); Eosinophil# 0.25 X10^3/uL; Eosinophils% 3.4 % (0-5); Hematocrit 41.1 % (37-47); Hemoglobin 13.1 g/dL (12.0-15.0); Lymphocyte # 1.65 X10^3/ul (0.83-4.51); Lymphocyte % 22.4 % (19-41); Mean Corp Hgb Conc 31.9 g/dL (32-36); Mean Corpuscular Hgb 25.5 pg (27.0-32.0); Mean Platelet Vol. 10.5 fl (6.2-12.0); Monocyte# 0.79 X10^3/uL; Monocyte% 10.7 % (0-10); NRBC Flagged by Analyzer 0 % (0-5); Neutrophil # 4.59 X10^3/uL (2.7-7.7); Neutrophil % 62.4 % (47-70); Platelet Count 351 K/mm3 (150-450); RBC Distribution Width CV 14.6 % (11.6-14.6); Red Blood Count 5.14 M/mm3 (4.2-5.4); White Blood Count 7.4 K/mm3 (4.4-11.0)
[2023-12-14 07:53] LABS: Color, Urine Yellow (Yellow); Glucose, Dipstick Normal (Normal); Ketone-Dipstick Negative (Negative); Leukocyte Esterase-Dipstick Negative /ul (Negative); Nitrite-Dipstick Negative (Negative); Occult Blood-Urine 10 /ul (Negative); Protein-Dipstick Negative (Negative); Specific Gravity, Urine 1.015 (1.002-1.030); Urine Bilirubin Dipstick Negative (Negative); Urine Clarity Clear (Clear); Urine Urobilinogen Normal (Normal)
[2023-12-14 08:02] LABS: Red Blood Cells-Urine 0-5 SEEN /hpf (0-5); Squamous Epithelial Cells - UA 0-5 SEEN /hpf (5-10)
[2023-12-14 08:24] LABS: Vitamin B12 428 pg/mL (211-911)
[2023-12-14 08:31] LABS: AST(SGOT) 21 U/L (15-37); Alanine Aminotransfer ALT/SGPT 24 U/L (13-56); Albumin, Serum 3.3 g/dL (3.2-5.0); Alkaline Phosphatase 73 U/L (45-117); Anion Gap 5 (5-15); BUN 19 mg/dL (7-18); BUN/Creat Ratio 20.5 RATIO (10-20); Calcium,Total 9.1 mg/dL (8.5-10.1); Chloride 102 mmol/L (98-107); Cholesterol 177 mg/dL (200); Creatinine, Serum 0.93 mg/dL (0.55-1.02); EST Glomerular Filtration Rate 63 mL/min (>60); Est Glom Filt Rate - Afr Amer 76 mL/min (>60); Globulin 3.2 g/dL (2.2-4.2); Glucose 124 mg/dL (74-106); High Density Lipoprotein 51 mg/dL; Potassium 3.7 mmol/L (3.5-5.1); Protein, Total 6.5 g/dL (6.4-8.2); Sodium Level 138 mmol/L (136-145); Thyroid Stim Hormone (TSH) 0.95 uIU/mL (0.358-3.74); Triglycerides 80 mg/dL; Very Low Density Lipoprotein 16 mg/dL (5-40)
[2023-12-14 11:58] LABS: Microalbumin,Random Urine 7.8 mg/L (NO RANGE EST.); Microalbumin:Creatinine Ratio 10.2 mg/g CRE (<30 mg/g CRE)
== END | disposition home or self-care (01) ==
LOC: LAB 07:22
PROVIDERS: PCP Internal Medicine; Visit Provider Internal Medicine
DX: Z00.01 Encounter for general adult medical examination with abnormal findings (principal); I10 Essential (primary) hypertension; E03.9 Hypothyroidism, unspecified; E53.8 Deficiency of other specified B group vitamins
CPT/HCPCS: 36415; 80053; 80061; 81001; 82043; 82570; 82607; 84443; 85025

== ENCOUNTER → 2025-01-21 | Outpatient (CLI) | payer MEDICARE, SELFPAY ==
[2025-01-21 09:23] LABS: Mucous, Urine 0 SEEN /hpf (<or=2+); Squamous Epithelial Cells - UA 0 SEEN /hpf (5-10)
--- OUTSIDE RECORDS SUMMARY | 2025-01-21 09:33 | XMS RPT_ITS | CCD ---
Author Organization [facility] Care Team Providers Care Supervisor Volunteer Services Name Role Phone Ana Lilia Sagastume Unavailable Mateo Lai Unavailable [facility] Unavailable Everett Terry Unavailable To Amor Unavailable Unavailable Naima Morales Unavailable Unavailable Messenger, Gisel Unavailable Unavailable Slarb, Jacqui Unavailable Unavailable Ciesa Eli Unavailable Unavailable Unavailable Azucena Brown Unavailable Unavailable [facility] Unavailable Braeden, Kaitlin Unavailable Unavailable Bruno Pineda Unavailable Unavailable Gisel Negrete Unavailable Unavailable Naima Morales Unavailable Unavailable Bruno Ferris Unavailable Unavailable Symone Johnson Unavailable Unavailable Jorge Alberto Valle Unavailable Sharon Marcelino Unavailable Unavailable Anna Aviles Unavailable Unavailable Ana Lilia Sagastume DO Unavailable Mateo Lai MD Unavailable [phone] [facility] Unavailable Mikel Rausch Unavailable Everett Terry MD Unavailable Unavailable Jorge Alberto Valle MD Unavailable To Amor Unavailable Unavailable Gravius CRICKET, Kaitlin Unavailable Unavailable Bruno Ferris LPN Unavailable Unavailable Chari PHLEBOTOMY SUPERVISOR, Sharon Unavailable Unavailable Slarb PHLEBOTOMY SUPERVISOR, Jacqui Unavailable Unavailable Messenger Gisel LOPEZ Unavailable Unavailable Stephanie Azucena Unavailable Unavailable Ciesa COAL SHOVELER, Eli Unavailable Unavailable Unavailable Dr. Ana Lilia Sagastume Primary Care Provider [phone] Dr. Mikel Adams Attending Provider Dr. Mikel Adams Other Provider Ana Lilia Sagastume DO Unavailable Lily Hathaway Unavailable Lily Hathaway Unavailable Dr. Ana Lilia Sagastume Primary Care Provider [phone] Dr. Ana Lilia Sagastume Referring Provider Manjeet [place] PA Leila Licea Attending Provider Dr. Nino Souza Attending Provider [phone] Traci HARLEY, Nick Unavailable Unavailable Chang VAZQUEZ, Addie Unavailable Unavailable Jerry VAZQUEZ, Ana Unavailable Unavailable Ana Lilai Sagastume DO Primary Care Provider Leila Burroughs ([place]) Unavailable [phone] Jorge Alberto Valle Unavailable Dr. Ana Lilia Sagastume Primary Care Provider [phone] Dr. Ana Lilia Sagastume Referring Provider Manjeet [place] PA Leila Licea Attending Provider Dr. Dung Myles Emergency Provider Dr. Valerie Montano Admit Provider Dr. Valerie Montano Attending Provider Dr. Valerie Montano Other Provider MIKEL ANDRADE Attending Unavailable ANA LILIA SAGASTUME Primary Care Unavailab JORGE ALBERTO Parkinson Referring Unavailable Dr. Ana Lilia Sagastume Primary Care Provider [phone] Dr. Ana Lilia Sagastume Referring Provider ALBAN Gibbs Attending Provider Dr. Dung Myles Emergency Provider Dr. Valerie Montano Admit Provider Dr. Valerie Montano Attending Provider Dr. Valerie Montano Other Provider Dr. Jorge Alberto Valle Attending Provider Dr. Valerie Montano Referring Provider Dr. Nena Bruno Other Provider Dr. Everett Avila Attending Provider Dr. Everett Avila Other Provider Damien DIRECTOR SHOPPER MARKETING, DIRECTOR SHOPPER MARKETINGKarthikC Gisel Attending Provider Keith DO, Ana Lilia Attending Unavailable Keith DO, Ana Lilia Referring Unavailable Keith DO, Ana Lilia Consulting Unavailable [place] PHLEBOTOMY SUPERVISOR, Te Unavailable Unavailable Hollie ROOT, Lindsey Licea Unavailable Ryan Loredo Unavailable Edwin CONLEY, GABINO Unavailable Unavailable Keith, Ana Lilia Referring Unavailable Keith, Ana Lilia Primary Care Unavailable Manpreet Heard Attending Unavailable SeeseRinku Attending Unavailable Keith, Ana Lilia Primary Care Unavailable Leila Burroughs Attending Unavailabl e Keith, Ana Lilia Referring Unavailable Keith, Ana Lilia Primary Care Unavailable Seese Rinku L Attending Unavailable Keith, Ana Lilia Primary Care Unavailable Keith, Ana Lilia Primary Care Unavailable Seese Rinku L Attending Unavailable Keith, Ana Lilia Referring Unavailable Keith, Ana Lilia Primary Care Unavailable Jimmy Delarosa NP Attending Unavailable Seese, Rinku L Attending Unavailable Keith, Ana Lilia Primary Care Unavailable Keith, Ana Lilia Referring Unavailable Keith, Ana Lilia Primary Care Unavailable To Hernandez Attending Unavailable Keith, Ana Lilia Attending Unavailable Keith, Ana Lilia Primary Care Unavailable Keith, Ana Lilia Primary Care Unavailable Keith, Ana Lilia Attending Unavailable Perla, Narendra Attending Unavailable Keith, Ana Lilia Primary Care Unavailable Allergies Allergy Classification Reported Allergen(s) Allergy Type Date of Onset Reaction(s) Facility (1 source) Anesthetics - Amide Type - Select A Drug allergy (disorder) 11-23-2024 [facility] Repository (1 source) Anesthetics - Rafaela Type- Parabens Drug allergy (disorder) 11-23-2024 [facility] Repository Medications Current Medications Medication Drug Class(es) Dates Sig (Normalized) Sig (Original) [id number] 200 actuat albuterol 0.09 mg/actuat metered dose inhaler (5 sources) beta2-Adrenergic Agonist Start: 07-20-2022 End: 08-01-2022 Albuterol Sulfate Active 2 INH INHALATION 4 TIMES DAILY August 01, 2022 3:02pm Start: 07-03-2022 take 2 puff(s) by in halation four times daily albuterol HFA (PROVENTIL HFA, VENTOLIN HFA) 90 mcg/actuation inhaler Inhale 2 Puffs as instructed four times daily. 0 07/03/2022 Active Comment on above: Inhale 2 Puffs as in structed four times daily. amoxicillin 500 mg oral tablet (1 source) Penicillin-class Antibacterial Start: 023 take 500 mg by mouth twice daily Amoxicillin Active 500 MG PO TWICE A DAY June 14, 2022 12:00am Beclomethasone Dipropionate (20 sources) Corticosteroid Start: 023 take 80 ug by inhalation twice daily Beclomethasone Dipropionate (Qvar Redihaler) 80 mcg/actuation HFA aerosol breath activated Active 2 INH INHALATION TWICE A DAY July 20, 2022 1:00am Start: 07-20-2022 take 80 ug by inhala tion twice daily Beclomethasone Dipropionate (Qvar Redihaler) 80 mcg/actuation HFA aerosol breath activated Active 2 INH INHALATION TWICE A DAY July 20, 2022 12:00am Start: 07-04-2022 take 2 puff(s) by in halation once daily QVAR REDIHALER 80 mcg/actuation inhaler Inhale 2 Puffs as instructed once daily. 0 07/04/2022 Active Start: 05-03-2022 Beclomethasone Dipropionate Active 80 MCG INHALATION May 03, 2022 12:00am End: 07-11-2022 beclomethasone dipropionate 80 mcg/actuation Use 2 Puffs in the nose twice daily. 0 07/11/2022 Discontinued (Other) Comment on above: Inhale 2 Puffs as in structed once daily. Use 2 Puffs in the n ose twice daily. brimonidine tartrate 2 mg/ml ophthalmic solution (20 sources) alpha-Adrenergic Agonist Start: 03-19-2022 Brimonidine Active 1 DRP OPHTHALMIC TWICE A DAY March 18, 2022 11:00pm Start: 11-20-2020 End: 03-19-2022 Brimonidine Discontinued 1 D RP OPHTHALMIC TWICE A DAY November 20, 2020 1:00pm March 19, 2022 1:07pm Start: 06-08-2020 End: 11-20-2020 Brimonidine Discontinued 1 D RP OPHTHALMIC THREE TIMES A DAY June 08, 2020 1:00am November 20, 2020 1:01pm calcium carbonate 1500 mg oral tablet (20 sources) Start: 05-28-2021 take 1200 mg by mouth once daily Calcium Carbonate Active 1200 MG PO DAILY May 28, 2021 1:37pm Start: 02-26-2016 End: 05-28-2021 calcium carbonate 1250 mg / cholecalciferol 0.01 mg oral tablet (3 sources) Vitamin D Start: 07-20-2022 Calcium Carbonate-Vitamin D3 (Calcium 500 + D) 500 mg-10 mcg (400 unit) Tablet Active 1 TABLET PO AT BEDTIME July 20, 2022 1:00am cholecalciferol 0.05 mg oral tablet (20 sources) Vitamin D Start: 08-01-2022 take 100 ug by mouth once daily Cholecalciferol (Vitamin D3) Active 100 MCG PO DAILY August 01, 2022 1:00am Start: 07-05-2016 take 4000 [IU] by mo [facility] once daily Cholecalciferol (Vitamin D3) Active 4000 UNIT PO DAILY July 05, 2016 12:00am Start: 10-11-2014 End: 10-06-2015 Start: 10-11-2014 End: 10-06-2015 take 6 capsules by mouth once daily VITAMIN D3, 1000UNIT (Oral Capsule) 6 Capsule Capsule qd for 360 days Refills: 0 Ordered: 18-Oct-2015 Gisel Negrete RN Start : 11-Oct-2014 End : 06-Oct-2015 Inactive prednisoLONE acetate 10 mg/ml ophthalmic suspension (1 source) Corticosteroid Start: 03-19-2022 Prednisolone A cetate Active 1 DRP OPHTHALMIC 4 TIMES DAILY March 18, 2022 11:00pm predniSONE 10 mg oral tablet (20 sources) Start: 06-14-2022 Prednisone Act verna 10 MG PO .COMPLEX June 14, 2022 12:00am Take 4 pills for 3 days, 3 pills for 3 days, 2 pills for 3 days, take 1 pill for 3 days Start: 05-02-2021 End: 05-20-2021 End: 07-11-2022 take 10 mg by mouth once daily PREDNISONE ORAL Take 10 mg by mouth once daily. 0 07/11/2022 Discontinued (Other) Comment on above: Take 10 mg by mouth once daily. Completed/Discontinued Medications Medication Drug Class(es) Dates Sig (Normalized) Sig (Original) acyclovir 50 mg/ml topical cream (20 sources) Herpesvirus Nucleoside Analog DNA Polymerase Inhibitor, Herpes Simplex Virus Nucleoside Analog DNA Polymerase Inhibitor, Herpes Zoster Virus Nucleoside Analog DNA Polymerase Inhibitor Start: 10-04-2013 End: 04-19-2014 Start: 10-04-2013 End: 04-19-2014 ZOVIRAX, 5% (External Cream) apply to sore Cream q 2-3 hrs prn for 0 days Quantity: 1 {Tube} Refills: 1 Ordered: 19-Apr-2014 Gisel Negrete RN Start : 04-Oct-2013 End : 19-Apr-2014 Inactive alendronic acid 70 mg oral t ablet (20 sources) Bisphosphonate Start: 06-12-2020 Start: 06-08-2020 End: 11-20-2020 take 70 mg by mouth every month Alendronate Discontinu ed 70 MG PO EVERY MONTH June 08, 2020 1:00am November 20, 2020 1:01pm due 06/09/20 Start: 05-09-2020 take 1 tablet by hortencia every month Alendronate Sodium 70 MG Oral Tablet 1 (one) Tablet qmonth for 0 days Quantity: 1 {Tablet} Refills: 3 Ordered: 09-May-2020 Ana Lilia Sagastume DO, DO, Kathleen Start : 09-May-2020 Active Start: 04-23-2020 take 1 tablet by hortencia th every month Alendronate Sodium 70 MG Oral Tablet 1 (one) Tablet qmonth for 0 days Quantity: 1 {Tablet} Refills: 3 Ordered: 23-Apr-2020 Ana Lilia Sagastume DO, DO, Kathleen Start : 23-Apr-2020 Active Start: 01-05-2020 take 1 tablet by hortencia th every month Alendronate Sodium 70 MG Oral Tablet 1 (one) Tablet qmonth for 0 days Quantity: 1 {Tablet} Refills: 3 Ordered: 05-Jan-2020 Kaitlin Deras CMA Start : 05-Jan-2020 Active Comment on above: Take 70 mg by mouth one time a week. In AM with cup of water on empty stomach. Nothing else by mouth and stay upright for 30 min. amoxicillin 875 mg / clavulanate 125 mg oral tablet (20 sources) Penicillin-class Antibacterial Start: 08-31-2008 End: 10-12-2008 Start: 08-31-2008 End: 10-12-2008 take 1 tablet by mouth twice daily AUGMENTIN, 875-125MG (Oral Tablet) 1 Tablet bid for 14 days Quantity: 28 {Tablet} Refills: 0 Ordered: 31-Aug-2008 Lily Hathaway CNP Start : 31-Aug-2008 End : 12-Oct-2008 Inactive apixaban 5 mg oral tablet (20 sources) Factor Xa Inhibitor Start: 09-08-2022 Start: 03-13-2022 End: 05-03-2022 take 1 tablet by mouth twice daily Apixaban (Eliquis) 5 mg tablet Discontinued 5 MG PO TWICE A DAY 60 March 19, 2022 1:43pm May 03, 2022 5:07am Start: 03-11-2022 End: 03-19-2022 take 2 tablets by mouth twice daily, then take 1 tablet by mouth twice daily Apixaban (Eliquis) 5 mg tablet Discontinued 5 MG PO TWICE A DAY 74 March 11, 2022 12:00am March 19, 2022 1:43pm 10 mg twice a day for the first week. Then 5 mg twice a day. Comment on above: Take 5 mg by mouth t wice daily. aspirin 81 mg delayed release oral tablet (8 sources) Platelet Aggregation Inhibitor, Nonsteroidal Anti-inflammatory Drug Start: 08-03-19 End: 11-21-19 take 81 mg by mouth once daily Aspirin Discontinued 81 MG PO DAILY August 02, 2020 1:00am November 20, 2020 1:00pm azithromycin 250 mg oral tablet (20 sources) Macrolide Antimicrobial Start: 05-02-20 End: 05-20-20 benzonatate 100 mg oral capsule (20 sources) Non-narcotic Antitussive Start: 04-24-20 End: 05-02-20 augmented betamethasone 0.5 mg/ml topical cream (20 sources) Corticosteroid Start: 03-16-20 End: 09-01-19 Start: 03-16-2008 End: 08-31-2008 DIPROLENE AF, 0.05% (Externa l Cream) apply to affected area bid Cream for 0 days Quantity: 15 {Cream} Refills: 0 Ordered: 16-Mar-2008 Ronda Padron Start : 16-Mar-2008 End : 31-Aug-2008 Discontinued biotin 1 mg oral capsule (8 sources) Start: 05-28-2021 End: 03-19-2022 take 1 mg by mouth once daily Biotin Discontinued 1 MG PO DAILY May 28, 2021 1:00am March 19, 2022 1:06pm budesonide 0.25 mg/ml inhalation suspension (20 sources) Corticosteroid Start: 05-02-2021 End: 05-20-2021 CALCIUM CARBONATE/VITAMIN D2 (CALCIUM 600 WITH VITAMIN D ORAL) (1 source) take 1 tablet by mouth once daily CALCIUM CARBONATE/VITAMIN D2 (CALCIUM 600 WITH VITAMIN D ORAL) Take 1 tablet by mouth once daily. 0 Active Comment on above: Take 1 tablet by hortencia once daily. chlorthalidone 25 mg oral tablet (20 sources) Thiazide-like Diuretic Start: 01-11-2018 Comment on above: Take 25 mg by mouth once daily. ciprofloxacin 3 mg/ml ophthalmic solution (20 sources) Quinolone Antimicrobial Start: 04-19-2014 End: 09-14-2014 clopidogrel 75 mg oral tablet (8 sources) P2Y12 Platelet Inhibitor Start: 08-02-2020 End: 08-28-2020 take 1 tablet by mouth once daily Clopidogrel (Plavix) 75 mg tablet Discontinued 75 MG PO DAILY August 02, 2020 1:00am August 28, 2020 11:25am COMPOUNDED PRESCRIPTION (1 source) Start: 04-26-2008 take 6000 [IU] by mouth once daily COMPOUNDED PRESCRIPTION Take 6,000 Units by mouth once daily. 0 04/26/2008 Active Comment on above: Take 6,000 Units by mouth once daily. desoximetasone 2.5 mg/ml topical cream (20 sources) Corticosteroid Start: 10-04-2013 End: 04-19-2014 Start: 10-04-2013 End: 04-19-2014 TOPICORT, 0.25% (External Cr eam) 1 (one) Cream BID for 0 days Quantity: 1 {Tube} Refills: 0 Ordered: 19-Apr-2014 Gisel Negrete RN Start : 04-Oct-2013 End : 19-Apr-2014 Inactive Comments: small tube- 15 gram Comment on above: small tube- 15 gram dexamethasone 6 mg oral tabl et (20 sources) Corticosteroid Start: 04-17-2021 End: 05-28-2021 dexamethasone 1 mg/ml / tobramycin 3 mg/ml ophthalmic suspension (20 sources) Aminoglycoside Antibacterial, Corticosteroid Start: 09-14-2014 End: 09-24-2014 Start: 09-14-2014 End: 09-24-2014 take 1 drop(s) into the eye(s) four times daily TOBRAMYCIN-DEXAMETHASONE, 0.3-0.1% (Ophthalmic Suspension) 1 (one) drop qid for 10 days Refills: 0 Ordered: 11-Oct-2014 Ana Lilia Sagastume DO, DO, Kathleen Start : 14-Sep-2014 End : 24-Sep-2014 Inactive dilTIAZem hydrochloride 120 mg oral tablet (20 sources) Calcium Channel Eva Start: 05-02-2021 End: 09-08-2022 Start: 08-01-2020 End: 12-30-2018 take 1 tablet by mouth once daily dilTIAZem HCl 120 MG Oral Tablet 1 (one) Tablet daily for 0 days Quantity: 30 {Tablet} Refills: 3 Ordered: 01-Aug-2020 Ana Lilia Sagastume DO, DO, Kathleen Start : 01-Aug-2020 End : 30-Dec-2018 Active Start: 08-01-2020 End: 12-30-2018 take 1 tablet by mouth once daily dilTIAZem HCl 120 MG Oral Tablet 1 (one) Tablet daily for 0 days Quantity: 30 {Tablet} Refills: 3 Ordered: 01-Aug-2020 Ana Lilia Sagastume DO, DO, Kathleen Start : 01-Aug-2020 End : 30-Dec-2018 Active Start: 04-23-2020 End: 12-30-2018 take 1 tablet by mouth once daily dilTIAZem HCl 120 MG Oral Tablet 1 (one) Tablet daily for 0 days Quantity: 30 {Tablet} Refills: 2 Ordered: 23-Apr-2020 Ana Lilia Sagastume DO, DO, Kathleen Start : 23-Apr-2020 End : 30-Dec-2018 Active Start: 04-23-2020 End: 12-30-2018 take 1 tablet by mouth once daily dilTIAZem HCl 120 MG Oral Tablet 1 (one) Tablet daily for 0 days Quantity: 30 {Tablet} Refills: 2 Ordered: 23-Apr-2020 Ana Lilia Sagastume DO, DO, Kathleen Start : 23-Apr-2020 End : 30-Dec-2018 Active Start: 04-23-2020 End: 12-30-2018 take 1 tablet by mouth once daily dilTIAZem HCl 120 MG Oral Tablet 1 (one) Tablet daily for 0 days Quantity: 30 {Tablet} Refills: 2 Ordered: 23-Apr-2020 Ana Lilia Sagastume DO, DO, Kathleen Start : 23-Apr-2020 End : 30-Dec-2018 Active Start: 04-23-2020 End: 12-30-2018 take 1 tablet by mouth once daily dilTIAZem HCl 120 MG Oral Tablet 1 (one) Tablet daily for 0 days Quantity: 30 {Tablet} Refills: 2 Ordered: 23-Apr-2020 Ana Lilia Sagastume DO, DO, Kathleen Start : 23-Apr-2020 End : 30-Dec-2018 Active Start: 04-23-2020 End: 12-30-2018 take 1 tablet by mouth once daily dilTIAZem HCl 120 MG Oral Tablet 1 (one) Tablet daily for 0 days Quantity: 30 {Tablet} Refills: 2 Ordered: 23-Apr-2020 Ana Lilia Sagastume DO, DO, Kathleen Start : 23-Apr-2020 End : 30-Dec-2018 Active Start: 01-16-2020 End: 12-30-2018 take 1 tablet by mouth once daily dilTIAZem HCl 120 MG Oral Tablet 1 (one) Tablet daily for 0 days Quantity: 30 {Tablet} Refills: 2 Ordered: 16-Jan-2020 Ana Lilia Sagastume DO, DO, Kathleen Start : 16-Jan-2020 End : 30-Dec-2018 Active Start: 01-16-2020 End: 12-30-2018 take 1 tablet by mouth once daily dilTIAZem HCl 120 MG Oral Tablet 1 (one) Tablet daily for 0 days Quantity: 30 {Tablet} Refills: 2 Ordered: 16-Jan-2020 Ana Lilia Sagastume DO, DO, Kathleen Start : 16-Jan-2020 End : 30-Dec-2018 Active Start: 01-16-2020 End: 12-30-2018 take 1 tablet by mouth once daily dilTIAZem HCl 120 MG Oral Tablet 1 (one) Tablet daily for 0 days Quantity: 30 {Tablet} Refills: 2 Ordered: 16-Jan-2020 Ana Lilia Sagastume DO, DO, Kathleen Start : 16-Jan-2020 End : 30-Dec-2018 Active Start: 12-06-2019 End: 08-24-2020 take 120 mg by mouth once daily Diltiazem Hcl Disconti nued 120 MG PO DAILY December 06, 2019 12:00am August 24, 2020 4:28pm Start: 10-31-2019 End: 12-30-2018 take 1 tablet by mouth once daily dilTIAZem HCl 120 MG Oral Tablet 1 (one) Tablet daily for 0 days Quantity: 30 {Tablet} Refills: 2 Ordered: 31-Oct-2019 Ana Lilia Sagastume DO, DO, Kathleen Start : 31-Oct-2019 End : 30-Dec-2018 Active Start: 10-31-2019 End: 12-30-2018 take 1 tablet by mouth once daily dilTIAZem HCl 120 MG Oral Tablet 1 (one) Tablet daily for 0 days Quantity: 30 {Tablet} Refills: 2 Ordered: 31-Oct-2019 Ana Lilia Sagastume DO, DO, Kathleen Start : 31-Oct-2019 End : 30-Dec-2018 Active Start: 10-31-2019 End: 12-30-2018 take 1 tablet by mouth once daily dilTIAZem HCl 120 MG Oral Tablet 1 (one) Tablet daily for 0 days Quantity: 30 {Tablet} Refills: 2 Ordered: 31-Oct-2019 Ana Lilia Sagastume DO, DO, Kathleen Start : 31-Oct-2019 End : 30-Dec-2018 Active Start: 10-31-2019 End: 12-30-2018 take 1 tablet by mouth once daily dilTIAZem HCl 120 MG Oral Tablet 1 (one) Tablet daily for 0 days Quantity: 30 {Tablet} Refills: 2 Ordered: 31-Oct-2019 Ana Lilia Sagastume DO, DO, Kathleen Start : 31-Oct-2019 End : 30-Dec-2018 Active Start: 10-31-2019 End: 12-30-2018 take 1 tablet by mouth once daily dilTIAZem HCl 120 MG Oral Tablet 1 (one) Tablet daily for 0 days Quantity: 30 {Tablet} Refills: 2 Ordered: 31-Oct-2019 Ana Lilia Sagastume DO, DO, Kathleen Start : 31-Oct-2019 End : 30-Dec-2018 Active Start: 10-31-2019 End: 12-30-2018 take 1 tablet by mouth once daily dilTIAZem HCl 120 MG Oral Tablet 1 (one) Tablet daily for 0 days Quantity: 30 {Tablet} Refills: 2 Ordered: 31-Oct-2019 Ana Lilia Sagastume DO, DO, Kathleen Start : 31-Oct-2019 End : 30-Dec-2018 Active Start: 10-31-2019 End: 12-30-2018 take 1 tablet by mouth once daily dilTIAZem HCl 120 MG Oral Tablet 1 (one) Tablet daily for 0 days Quantity: 30 {Tablet} Refills: 2 Ordered: 31-Oct-2019 Ana Lilia Sagastume DO, DO, Kathleen Start : 31-Oct-2019 End : 30-Dec-2018 Active Start: 10-31-2019 End: 12-30-2018 take 1 tablet by mouth once daily dilTIAZem HCl 120 MG Oral Tablet 1 (one) Tablet daily for 0 days Quantity: 30 {Tablet} Refills: 2 Ordered: 31-Oct-2019 Ana Lilia Sagastume DO, DO, Kathleen Start : 31-Oct-2019 End : 30-Dec-2018 Active Start: 03-25-2019 End: 12-30-2018 take 1 tablet by mouth once daily dilTIAZem HCl 120 MG Oral Tablet 1 (one) Tablet daily for 0 days Quantity: 30 {Tablet} Refills: 2 Ordered: 25-Mar-2019 Ana Lilia Sagastume DO, DO, Kathleen Start : 25-Mar-2019 End : 30-Dec-2018 Active Start: 03-25-2019 End: 12-30-2018 take 1 tablet by mouth once daily dilTIAZem HCl 120 MG Oral Tablet 1 (one) Tablet daily for 0 days Quantity: 30 {Tablet} Refills: 2 Ordered: 25-Mar-2019 Ana Lilia Sagastume DO, DO, Kathleen Start : 25-Mar-2019 End : 30-Dec-2018 Active Start: 03-25-2019 End: 12-30-2018 take 1 tablet by mouth once daily dilTIAZem HCl 120 MG Oral Tablet 1 (one) Tablet daily for 0 days Quantity: 30 {Tablet} Refills: 2 Ordered: 25-Mar-2019 Ana Lilia Sagastume DO, DO, Kathleen Start : 25-Mar-2019 End : 30-Dec-2018 Active Start: 01-03-2019 End: 12-30-2018 take 1 tablet by mouth once daily dilTIAZem HCl 120 MG Oral Tablet 1 (one) Tablet daily for 0 days Quantity: 30 {Tablet} Refills: 2 Ordered: 03-Jan-2019 Ana Lilia Sagastume DO, DO, Kathleen Start : 03-Jan-2019 End : 30-Dec-2018 Active Start: 01-03-2019 End: 12-30-2018 take 1 tablet by mouth once daily dilTIAZem HCl 120 MG Oral Tablet 1 (one) Tablet daily for 0 days Quantity: 30 {Tablet} Refills: 2 Ordered: 03-Jan-2019 Ana Lilia Sagastume DO, DO, Kathleen Start : 03-Jan-2019 End : 30-Dec-2018 Active Start: 01-03-2019 End: 12-30-2018 take 1 tablet by mouth once daily dilTIAZem HCl 120 MG Oral Tablet 1 (one) Tablet daily for 0 days Quantity: 30 {Tablet} Refills: 2 Ordered: 03-Jan-2019 Ana Lilia Sagastume DO, DO, Kathleen Start : 03-Jan-2019 End : 30-Dec-2018 Active Start: 01-03-2019 End: 12-30-2018 take 1 tablet by mouth once daily dilTIAZem HCl 120 MG Oral Tablet 1 (one) Tablet daily for 0 days Quantity: 30 {Tablet} Refills: 2 Ordered: 03-Jan-2019 Ana Lilia Sagastume DO, DO, Kathleen Start : 03-Jan-2019 End : 30-Dec-2018 Active Start: 06-03-2018 End: 12-30-2018 take 1 tablet by mouth once daily dilTIAZem HCl 120 MG Oral Tablet 1 (one) Tablet daily for 0 days Quantity: 30 {Tablet} Refills: 2 Ordered: 30-Dec-2018 Gisel Negrete LPN Start : 03-Jun-2018 End : 30-Dec-2018 Inactive Start: 12-20-2015 End: 07-11-2022 Comment on above: diet and exercise Take 120 mg by mouth once daily. dimenhyDRINATE 50 mg oral ta blet (20 sources) Start: 12-15-2016 End: 12-30-2018 doxycycline monohydrate 100 mg oral capsule (20 sources) Tetracycline-class Drug Start: 11-01-2019 End: 11-11-2019 DULoxetine 60 mg delayed rel ease oral capsule (20 sources) Serotonin and Norepinephrine Reuptake Inhibitor Start: 12-15-2016 Start: 12-15-2016 take 1 capsule by [facility] once daily DULoxetine HCl 30 MG Oral Capsule Delayed Release Particles 1 (one) Capsule qd for 0 days Quantity: 30 {Capsule} Refills: 4 Ordered: 15-Dec-2016 Ana Lilia Sagastume DO, DO, Kathleen Start : 15-Dec-2016 Active End: 07-11-2022 take 1 capsule by mouth twice daily DULoxetine (CYMBALTA) 30 mg capsule Indications: Bee sting, accidental or unintentional, initial encounter Take 30 mg by mouth twice daily. 0 07/11/2022 Discontinued (Other) Comment on above: Take 60 mg by mouth once daily. Take 30 mg by mouth twice daily. estradiol 0.5 mg oral tablet (20 sources) Estrogen PREMPRO, 0.3-1.5MG (Oral Tab let) (20 sources) Progestin, Estrogen take 1 tablet by mouth once yazmin y PREMPRO, 0.3-1.5MG (Oral Tablet) 1 QD for 0 days Refills: 0 Ordered: 09-Nov-2009 Inactive 24 hr etodolac 400 mg extended release oral tablet (20 sources) Nonsteroidal Anti-inflammatory Drug Start: 03-24-2013 End: 05-30-2013 Start: 03-24-2013 End: 05-30-2013 take 2 tablets by mouth once daily at mealtime ETODOLAC ER, 400MG (Oral Tablet Extended Release 24 Hour) 2 (two) Tablet ER 24HR qd with food for 0 days Quantity: 30 {Tablet_ER_24HR} Refills: 0 Ordered: 30-May-2013 Gisel Negrete RN Start : 24-Mar-2013 End : 30-May-2013 Inactive Start: 07-27-2008 End: 09-12-2009 Start: 07-27-2008 End: 09-12-2009 take 2 tablets by mouth once daily LODINE XL, 400MG (Oral Tablet Extended Release 24 Hour) 2 (two) Tablet ER 24HR Daily for 0 days Quantity: 28 {Tablet_ER_24HR} Refills: 0 Ordered: 27-Jul-2008 Gisel Negrete RN Start : 27-Jul-2008 End : 12-Sep-2009 Discontinued Comments: This order discontinued per [facility]. Comment on above: This order discontin ued per [facility]. famotidine 20 mg oral tablet (20 sources) Histamine-2 Receptor Antagonist Start: 01-24-2016 End: 07-11-2022 Start: 09-14-2014 End: 12-20-2015 Comment on above: Take 1 tablet by hortencia th daily at bedtime. fluticasone propionate 0.05 mg/actuat metered dose nasal spray (20 sources) Corticosteroid Start: 09-10-2012 End: 03-09-2013 Start: 09-10-2012 End: 03-09-2013 take 2 spray(s) nasal route once daily FLONASE, 50MCG/ACT (Nasal Suspension) 2 (two) Suspension SPRAYS EACH NOSTRIL DAILY for 0 days Quantity: 1 {Suspension} Refills: 3 Ordered: 09-Mar-2013 Lisbeth Ruiz CMA Start : 10-Sep-2012 End : 09-Mar-2013 Inactive Comments: SUBSTITUTE GENERIC Comment on above: SUBSTITUTE GENERIC ibuprofen 600 mg oral tablet (20 sources) Nonsteroidal Anti-inflammatory Drug Start: 02-26-2016 End: 12-30-2018 Start: 02-26-2016 End: 12-30-2018 Ibuprofen 600 MG Oral Tablet 1 (one) Tablet Tablet q6-8 hrs for 0 days Quantity: 30 {Tablet} Refills: 0 Ordered: 30-Dec-2018 Gisel Negrete RN Start : 26-Feb-2016 End : 30-Dec-2018 Inactive 24 hr isosorbide mononitrate 30 mg extended release oral tablet (20 sources) Nitrate Vasodilator Start: 07-20-2020 End: 04-16-2021 latanoprost 0.05 mg/ml ophth almic solution (20 sources) Prostaglandin Analog End: 06-12-2020 levothyroxine sodium 0.112 m g oral tablet (20 sources) l-Thyroxine Start: 03-23-2023 Start: 08-28-2022 Start: 03-01-2018 End: 12-13-2021 take 112 ug by mouth once daily Levothyroxine Discontinued 112 MCG PO DAILY August 02, 2020 1:00am December 13, 2021 11:35am Start: 07-05-2016 End: 08-02-2020 take 112 ug by mouth once daily Levothyroxine Discontinued 112 MCG PO DAILY July 05, 2016 1:00am August 02, 2020 12:12pm SYNTHROID, 200MC G (Injection Recon Soln) .15MG QD (200 MCG) Inactive Comment on above: Dispense as written Take 112 mcg by mout h daily before breakfast. loratadine 10 mg disintegrating oral tablet (20 sources) LORazepam 0.5 mg oral tablet (20 sources) Benzodiazepine magnesium aspartate 250 mg / potassium aspartate 250 mg oral capsule (15 sources) Start: End: take 1 capsule by mouth once daily Magnesium, Potassium Aspartate Discontinued 1 CAP PO DAILY December 13, 2021 11:36am March 19, 2022 1:07pm methylPREDNISolone 4 mg oral tablet (20 sources) Corticosteroid Start: End: Start: 02-26-2016 End: 12-15-2016 Medrol 4 MG Oral Tablet Ther apy Pack 1 (one) Tab Ther Pack TAD for 0 days Quantity: 1 {Package} Refills: 0 Ordered: 15-Dec-2016 Naima Morales RN Start : 26-Feb-2016 End : 15-Dec-2016 Inactive Comments: with food Start: 04-18-2015 End: 10-18-2015 Start: 04-18-2015 End: 10-18-2015 MEDROL (SAMANTHA), 4MG (Oral Tabl et) tad Tablet uad for 0 days Quantity: 1 {Package} Refills: 0 Ordered: 18-Oct-2015 Gisel Negrete RN Start : 18-Apr-2015 End : 18-Oct-2015 Inactive Comment on above: with food 24 hr metoprolol succinate 1 00 mg extended release oral tablet (20 sources) beta-Adrenergic Eva Start: 05-12-2022 Start: 03-13-2022 End: 05-03-2022 take 100 mg by mouth once daily Metoprolol Succinate Discontinued 100 MG PO DAILY March 19, 2022 1:44pm May 03, 2022 5:12am Start: 05-02-2021 End: 05-12-2022 Start: 08-24-2020 End: 03-19-2022 take 50 mg by mouth once daily Metoprolol Succinate Di scontinued 50 MG PO DAILY July 12, 2021 12:21pm March 19, 2022 1:09pm Comment on above: Take 100 mg by mouth once daily. 24 hr mirabegron 25 mg extended release oral tablet (20 sources) beta3-Adrenergic Agonist Start: 09-08-2022 mometasone furoate 0.05 mg/actuat metered dose nasal spray (20 sources) Corticosteroid Start: 11-09-2009 End: 09-18-2011 Start: 11-09-2009 End: 09-18-2011 NASONEX, 50MCG/ACT (Nasal Bearden spension) 2 (two) Suspension qd for 0 days Quantity: 1 {Suspension} Refills: 0 Ordered: 18-Sep-2011 Gisel Negrete RN Start : 09-Nov-2009 End : 18-Sep-2011 Inactive ofloxacin 3 mg/ml ophthalmic solution (20 sources) Quinolone Antimicrobial Start: 07-19-2008 End: 07-27-2008 Start: 07-19-2008 End: 07-27-2008 OCUFLOX, 0.3% (Ophthalmic So lution) 1 Solution q1-6 hr for 0 days Quantity: 1 {Solution} Refills: 0 Ordered: 19-Jul-2008 Gisel Negrete RN Start : 19-Jul-2008 End : 27-Jul-2008 Inactive omeprazole 40 mg delayed rel ease oral capsule (20 sources) Proton Pump Inhibitor Start: 09-08-2022 penciclovir 10 mg/ml topical cream (20 sources) Herpesvirus Nucleoside Analog DNA Polymerase Inhibitor Start: 09-29-2013 End: 04-19-2014 potassium chloride 20 meq extended release oral tablet (20 sources) Start: 05-15-2022 Start: 09-30-2013 End: 10-30-2013 End: 07-11-2022 take 20 mEq by mouth once daily POTASSIUM CHLORIDE ORAL Take 20 mEq by mouth once daily. 0 07/11/2022 Discontinued (Other) Comment on above: Take 1 tablet by hortencia twice daily. Take 20 mEq by mouth once daily. 1 ml promethazine hydrochlor josue 25 mg/ml injection (20 sources) Phenothiazine Start: 05-28-2012 End: 09-10-2012 Start: 05-28-2012 End: 03-09-2013 Start: 05-28-2012 End: 03-09-2013 PHENERGAN, 25MG/ML (Injectio n Solution) 1 Suppository(ies) q 8 hrs, prn for 0 days Quantity: 10 {Suppository(ies)} Refills: 0 Ordered: 09-Mar-2013 Lisbeth Ruiz CMA Start : 28-May-2012 End : 09-Mar-2013 Inactive tranylcypromine 10 mg oral t ablet (20 sources) Monoamine Oxidase Inhibitor Start: 02-26-2016 End: 12-15-2016 Start: 12-20-2015 End: 01-19-2016 Start: 04-26-2008 End: 07-11-2022 TRANYLCYPROMINE 10 MG TAB ta ke 5 tablets daily 0 04/26/2008 07/11/2022 Discontinued (Other) PARNATE 10MG 4 d aily Inactive Comment on above: Prescribed by Dr. Obey porter 3 am 2 pm take 5 tablets daily triamcinolone acetonide 1 mg/ml topical cream (1 source) Corticosteroid Start: 12-18-2016 End: 07-11-2022 triamcinolone acetonide (KENALOG) 0.1 % cream Indications: Bee sting, accidental or unintentional, initial encounter Apply 1 application to affected area three times daily. Apply sparingly to area for rash/itching. 60 g 0 12/18/2016 07/11/2022 Discontinued (Other) Comment on above: Apply 1 application to affected area three times daily. Apply sparingly to area for rash/itching. valACYclovir 1000 mg oral tablet (20 sources) Herpesvirus Nucleoside Analog DNA Polymerase Inhibitor, Herpes Simplex Virus Nucleoside Analog DNA Polymerase Inhibitor, Herpes Zoster Virus Nucleoside Analog DNA Polymerase Inhibitor Start: 04-12-2020 End: 04-19-2020 (9 sources) Problems Active Problems Problem Classification Problem Date Documented Date Episodic/Chronic Abdominal hernia (20 sources) Hernia of other specified sites without mention of obstruction or gangrene; Translations: [Hernia of abdominal cavity] 12-15-2016 Episodic Acute bronchitis (16 sources) Viral bronchitis; Translations: [Acute bronchitis due to other specified organisms] 06-14-2022 Episodic Allergic reactions (20 sources) Dermatitis; Translations: [Eczema] Resolved: 10-12-2008 10-12-2008 Episodic Cardiac dysrhythmias (20 sources) Supraventricular tachycardia; Translations: [Supraventricular tachycardia] Onset: 07-10-2022 12-15-2016 Chronic Cardiac dysrhythmias (20 sources) Tachycardia, unspecified; Translations: [Heart rate fast] Resolved: 12-30-2018 12-15-2016 Episodic Coagulation and hemorrhagic disorders (5 sources) Other thrombophilia; Translations: [Hypercoagulable state due to atrial fibrillation] Onset: 05-05-2022 Chronic Conduction disorders (16 sources) Uqkys-Wbhpkkpxp-Lzpgi pattern; 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 Diabetes mellitus without complication (20 sources) Hyperglycemia; Translations: [Hyperglycemia] 05-12-2022 Episodic E Codes: Fall (20 sources) Fall; Translations: [Fall] Resolved: 06-12-2020 06-27-2020 Episodic Esophageal disorders (20 sources) Gastroesophageal reflux disease; Translations: [Chronic GERD] 09-08-2022 Chronic Essential hypertension (20 sources) Benign essential hypertension; Translations: [Hypertension, essential, benign] Onset: 11-22-2014 12-02-2018 Chronic Fluid and electrolyte disorders (20 sources) Hypokalemia; Translations: [Hypokalemia] Resolved: 05-12-2022 10-18-2015 Episodic Fracture of lower limb (20 sources) Fracture of foot ; Translations: [Foot fracture, left] 02-19-2023 Episodic Genitourinary symptoms and ill-defined conditions (20 sources) Mixed urinary incontinence; Translations: [Urinary incontinence, mixed] 09-08-2022 Chronic Genitourinary symptoms and ill-defined conditions (20 sources) Blood in urine; Translations: [Hematuria] Resolved: 12-30-2018 12-15-2016 Episodic Glaucoma (20 sources) Glaucoma; Translations: [Glaucoma] Onset: 07-11-2022 12-01-2019 Chronic Comment on above: early stage dx from [facility] Pined[facility] Headache; including migraine (20 sources) Cyclical vomiting syndrome; Translations: [Cyclical vomiting without nausea, unspecified intactability] Resolved: 12-30-2018 12-30-2018 Chronic Headache; including migraine (20 sources) Headache; Translations: [Cyclical vomiting syndrome] Resolved: 12-30-2018 10-18-2015 Episodic Immunizations and screening for infectious disease (20 sources) Need for prophylactic vaccination and inoculation against influenza; Translations: [Pneumococcal vaccination given] 12-15-2016 Episodic Inflammation; infection of eye (except that caused by tuberculosis or sexually transmitteddisease) (20 sources) Acute conjunctivitis; Translations: [Serous conjunctivitis] Resolved: 06-12-2020 04-11-2015 Episodic Malaise and fatigue (20 sources) Asthenia; Translations: [Malaise] Resolved: 10-18-2015 10-18-2015 Episodic Comment on above: fatigued Mood disorders (20 sources) Depression; Translations: [Depressive disorder] Onset: 11-22-2014 12-15-2016 Chronic Comment on above: stable Nausea and vomiting (20 sources) Nausea; Translations: [Nausea alone] Onset: 11-22-2014 Resolved: 09-08-2022 10-18-2015 Episodic Nonspecific chest pain (20 sources) Atypical chest pain; Translations: [Atypical chest pain] 06-28-2020 Episodic Nutritional deficiencies (20 sources) Vitamin D deficiency; Translations: [Vitamin D deficiency] Onset: 07-11-2022 12-02-2018 Chronic Nutritional deficiencies (20 sources) Vitamin B12 deficiency (non anemic); Translations: [Vitamin B12 deficiency (non anemic)] 09-24-2022 Episodic Open wounds of head; neck; and trunk (20 sources) Facial laceration ; Translations: [Facial laceration, initial encounter] Resolved: 06-12-2020 01-05-2020 Episodic Other aftercare (12 sources) Long-term current use of anticoagulant; Translations: [quality improvement coordinator (rn) (current) use of anticoagulants] Onset: 07-10-2022 05-11-2022 Episodic Other aftercare (6 sources) snf (current) use of anticoagulants; Translations: [Long-term (current) use of anticoagulants] Onset: 07-10-2022 Episodic Other bone disease and musculoskeletal deformities (20 sources) Osteopenia; Translations: [Osteopenia] Onset: 07-11-2022 01-05-2020 Episodic Other circulatory disease (20 sources) Elevated blood-pressure reading without diagnosis of hypertension; Translations: [Elevated blood-pressure reading without diagnosis of hypertension] Resolved: 10-18-2015 10-18-2015 Episodic Other circulatory disease (9 sources) H/O: heart disorder; Translations: [Personal history of other diseases of the circulatory system] Onset: 07-10-2022 05-11-2022 Episodic Other circulatory disease (4 sources) Personal history of other diseases of the circulatory system; Translations: [Personal history of other diseases of circulatory system] Onset: 07-10-2022 Episodic Other connective tissue disease (20 sources) Ganglion, unspecified; Translations: [Cyst in hand] Resolved: 12-30-2018 12-15-2016 Episodic Other connective tissue disease (20 sources) Impingement syndrome of shoulder region; Translations: [Impingement syndrome of shoulder region, unspecified laterality] Resolved: 09-18-2011 04-13-2015 Episodic Other connective tissue disease (20 sources) Pain in left foot; Translations: [Foot pain, left] 02-19-2023 Episodic Other disorders of stomach and duodenum (20 sources) Indigestion; Translations: [Indigestion] Resolved: 10-18-2015 10-18-2015 Episodic Comment on above: atypical for her - f emale over 50-- no relief with pepcidnot having currently or would trial of GI cocktail Other ear and sense organ disorders (1 source) Hearing loss; Translations: [Unspecified hearing loss, unspecified ear] Onset: 11-22-2014 11-22-2014 Chronic Other ear and sense organ disorders (20 sources) Impacted cerumen; Translations: [Cerumen impaction] Resolved: 03-10-2007 02-27-2015 Episodic Other eye disorders (20 sources) Eye symptom; Translations: [Eye symptom] Resolved: 10-18-2015 10-18-2015 Episodic Other female genital disorders (20 sources) Abnormal uterine bleeding; Translations: [DUB (dysfunctional uterine bleeding)] Resolved: 07-25-2009 04-18-2015 Chronic Other lower respiratory disease (20 sources) Cough; Translations: [Cough] Resolved: 10-12-2008 09-10-2012 Episodic Other non-traumatic joint disorders (20 sources) Knee pain; Translations: [Pain in unspecified knee] Resolved: 10-04-2013 10-04-2013 Episodic Comment on above: declined x-rays at t his time -- will try wt loss , nsaid and if not better will do x-rays and see if injections needed etc Other non-traumatic joint disorders (20 sources) Hip pain; Translations: [Pain in unspecified hip] Resolved: 10-04-2013 04-10-2015 Episodic Other nutritional; endocrine; and metabolic disorders (20 sources) Cholesterol level - finding; Translations: [Low HDL (under 40)] Resolved: 07-25-2009 04-09-2015 Chronic Other nutritional; endocrine; and metabolic disorders (20 sources) Body mass index 25-29 - overweight; Translations: [BMI 27.0-27.9,adult] Resolved: 12-01-2019 12-20-2015 Chronic Other nutritional; endocrine; and metabolic disorders (20 sources) Ketosis; Translations: [Ketosis] 09-08-2022 Chronic Other nutritional; endocrine; and metabolic disorders (20 sources) Body mass index 25-29 - overweight; Translations: [BMI 25.0-25.9,adult] Resolved: 12-01-2019 05-20-2021 Episodic Other nutritional; endocrine; and metabolic disorders (20 sources) Overweight in adulthood with body mass index of 25 or more but less than 30; Translations: [BMI 25.0-25.9,adult] Resolved: 05-12-2022 05-20-2021 Episodic Other nutritional; endocrine; and metabolic disorders (20 sources) Weight gain; Translations: [Weight gain] 09-08-2022 Episodic Other screening for suspected conditions (not mental disorders or infectious disease) (20 sources) Blood chemistry abnormal; Translations: [Breast neoplasm screening status] Resolved: 12-30-2018 02-27-2015 Episodic Comment on above: following trends abnormal exercise in duced ischemia and reprod cp but nuclear imaging was normal - refer to cardio- start asa nad nitro and leave CCb inplace for now until consult Other skin disorders (20 sources) Eruption; Translations: [Rash] Resolved: 04-19-2014 10-18-2015 Episodic Other skin disorders (20 sources) Swollen ankle region; Translations: [Ankle swelling, right] Resolved: 06-12-2020 11-07-2019 Episodic Other upper respiratory disease (20 sources) Allergic rhinitis; Translations: [Allergic rhinitis] Resolved: 12-30-2018 12-15-2016 Chronic Otitis media and related conditions (20 sources) Dysfunction of eustachian tube; Translations: [ETD (eustachian tube dysfunction)] Resolved: 06-12-2020 11-07-2019 Episodic Pneumonia (except that caused by tuberculosis or sexually transmitted disease) (20 sources) Pneumonia; Translations: [Pneumonia] Resolved: 09-08-2022 05-20-2021 Episodic Residual codes; unclassified (20 sources) Needs influenza immunization; Translations: [Need for prophylactic vaccination and inoculation against influenza] 02-26-2016 Episodic Residual codes; unclassified (20 sources) Postmenopausal state; Translations: [Post-menopausal] Onset: 07-11-2022 12-15-2016 Episodic Residual codes; unclassified (20 sources) Requires varicella vaccination; Translations: [Need for shingles vaccine] 02-26-2016 Episodic Residual codes; unclassified (3 sources) Vaccination required; Translations: [Need for shingles vaccine] 02-26-2016 Episodic Residual codes; unclassified (20 sources) Family history of ischemic heart disease and other diseases of the circulatory system; Translations: [FH: Myocardial infarction at less than 60] 06-28-2020 Episodic Residual codes; unclassified (20 sources) Non-smoker; Translations: [Non-smoker] 05-20-2021 Episodic Residual codes; unclassified (15 sources) History of radiofrequency ablation operation for arrhythmia; Translations: [Other specified postprocedural states] 05-11-2022 Episodic Residual codes; unclassified (8 sources) FH: Myocardial infarction; Translations: [Family history of ischemic heart disease and other diseases of the circulatory system] 05-11-2022 Episodic Residual codes; unclassified (7 sources) Other specified postprocedural states; Translations: [Personal history of surgery to heart and great vessels, presenting hazards to health] Onset: 07-10-2022 Episodic Residual codes; unclassified (3 sources) Other specified personal risk factors, not elsewhere classified; Translations: [Other specified personal history presenting hazards to health] Onset: 07-10-2022 Episodic Residual codes; unclassified (2 sources) H/O cardiac surgery; Translations: [Other specified postprocedural states] Onset: 07-10-2022 Episodic Skin and subcutaneous tissue infections (20 sources) Cellulitis of lower limb; Translations: [Cellulitis of lower extremity, unspecified laterality] Resolved: 11-07-2019 11-07-2019 Episodic Spondylosis; intervertebral disc disorders; other back problems (20 sources) Neck pain; Translations: [Neck pain] Resolved: 12-30-2018 12-15-2016 Episodic Comment on above: ? musculoskeletal vs cervical arthritis check xray, nsaids, trial medrol Syncope (8 sources) Near syncope; Translations: [Syncope and collapse] 07-06-2016 Episodic Thyroid disorders (20 sources) Hypothyroidism; Translations: [Hyperthyroidism] Onset: 11-22-2014 12-02-2018 Chronic Comment on above: follwing trends befo re we chg meds Unclassified (20 sources) BMI 26.0-26.9,adult Unclassified (20 sources) Abnormal blood chemistry (790.6) Unclassified (20 sources) Unclassified (20 sources) Cerumen impaction (380.4) Unclassified (20 sources) HEARING LOSS, NOS (389.9) 12-15-2016 Unclassified (20 sources) DUB (626.8) Unclassified (20 sources) HYPERTENSION, BENIGN ESSENTIAL (401.1) Unclassified (20 sources) Low HDL (272.5) Unclassified (20 sources) Shoulder Impingment Syndrome (726.2) Unclassified (20 sources) Non-smoker; Translations: [Non-smoker] 12-15-2016 Unclassified (20 sources) Abnormal TSH (794.5) Unclassified (20 sources) Elevated Blood Pressure without diagnosis of Hypertension (796.2) Unclassified (20 sources) Hypertension, essential, benign Unclassified (20 sources) Pelvis/Thigh/Hip Pain (719.45) Unclassified (20 sources) Cyst in hand (727.43) Unclassified (20 sources) Post-menopausal Unclassified (20 sources) Cyclical vomiting without nausea, unspecified intactability Unclassified (20 sources) Breast cancer screening Unclassified (20 sources) Eye symptom Unclassified (20 sources) Cold sore Unclassified (20 sources) Rash Unclassified (20 sources) BMI 25.0-25.9,adult Unclassified (20 sources) Abnormal TSH Unclassified (18 sources) ETD (eustachian tube dysfunction) Unclassified (18 sources) PND (post-nasal drip) Unclassified (1 source) Cough, unspecified; Translations: [Cough, unspecified] Onset: 08-14-2024 Viral infection (20 sources) Herpes labialis; Translations: [Viral disease] Onset: 04-23-2021 Resolved: 06-12-2020 12-15-2016 Episodic Past or Other Problems Problem Classification Problem Date Documented Date Episodic/Chronic Conditions associated with dizziness or vertigo (1 source) Benign paroxysmal positional vertigo; Translations: [Benign paroxysmal vertigo, unspecified ear] Onset: 12-06-2015 12-06-2015 Episodic External cause codes: Fall (20 sources) Fall; Translations: [Fall] Resolved: 06-12-2020 01-05-2020 Other female genital disorders (20 sources) Dysfunctional uterine bleeding; Translations: [DUB (dysfunctional uterine bleeding)] Resolved: 07-25-2009 04-18-2015 Chronic Other non-traumatic joint disorders (20 sources) Pain in unspecified knee; Translations: [Knee Pain] Resolved: 10-04-2013 10-04-2013 Episodic Other skin disorders (9 sources) Inflammatory dermatosis; Translations: [Dermatitis] Resolved: 10-12-2008 10-12-2008 Episodic Other upper respiratory infections (20 sources) Acute sinusitis, unspecified; Translations: [Acute sinusitis] Onset: 08-14-2024 Resolved: 06-12-2020 02-27-2015 Episodic Unclassified (20 sources) Unspecified Diagnosis 12-15-2016 Unclassified (20 sources) Deliveries (Parity); Translations: [Deliveries (Parity)] 12-15-2016 Comment on above: 2 Unclassified (20 sources) Screening status; Translations: [Encounter for screening for malignant neoplasm of colon (Renamed from Special screening for malignant neoplasms, colon)] 12-15-2016 Comment on above: last scope 2014 repe at 10 yr Unclassified (20 sources) Patient encounter status; Translations: [Encounter for screening mammogram for breast cancer (Renamed from Encounter for screening mammogram for malignant neoplasm of breast)] 12-15-2016 Unclassified (20 sources) ENDOCENVICAL POLYPS 12-15-2016 Comment on above: BENIGN Unclassified (20 sources) Hiatal Hernia Repair 07/06/08 12-15-2016 Unclassified (20 sources) Pregnancies (); Translations: [Pregnancies ()] 12-15-2016 Comment on above: 3 Unclassified (20 sources) THYORID TUMOR 12-15-2016 Comment on above: BENIGN Unclassified (20 sources) Pre-operative examination, unspecified (V72.84) Unclassified (20 sources) Preprocedural examination done; Translations: [Pre-operative examination] Resolved: 10-12-2008 02-27-2015 Comment on above: requested by dr Cristi ayala Unclassified (20 sources) Need for shingles vaccine (V04.89) Unclassified (20 sources) Medicare annual wellness visit, initial Unclassified (20 sources) Body mass index 25.0-25.9, adult Unclassified (20 sources) Heart rate fast (785.0) Unclassified (20 sources) Weak Unclassified (20 sources) Abortions/Miscarriag es; Translations: [Abortions/Miscarria ges] 12-15-2016 Comment on above: 1972 Unclassified (18 sources) Annual Medicare Phyiscal WITHOUT abnormal findings (Renamed from Encounter for general adult medical examination without abnormal findings) Unclassified (18 sources) Ankle swelling, right Unclassified (18 sources) Cellulitis of lower extremity, unspecified laterality Unclassified (12 sources) Facial laceration, initial encounter Unclassified (9 sources) Shingles of eyelid Unclassified (3 sources) Abnormal stress test Unclassified (3 sources) Family history of myocardial infarction at age less than 60 Unclassified (8 sources) Age more than 65 years; Translations: [Over 65 years old] 05-11-2022 Results Test Name Value Interpretation Reference Range Facility MR/[facility] 11-23-2024 MR/BMS.[address] [place] [address] OFFICE VISIT Date of Service: 11/23/24 MR#: [id number] Acct: [id number] Name: YADY COOMBS Rep #: [id number] : 1950 Provider: Dr. Rinku Patel se, DO Age/Sex: 74/F [place] [facility] [place]: Signed Intake Vital Signs 08/04/24 09:03 11/23/24 08:58 Height 5 ft 2 in 5 ft 2 in Weight: 163 lb 162 lb BMI 29.8 29.6 BP 132/75 H 162/79 H Blood Pressure Location Lt brachial Lt brachial Position Sitting Sitting Respiration 18 16 Pulse 67 64 Pulse Source Monitor Monitor BP Intake Visit Reasons: 4 M FU Accompanied by: Self Allergies Anesthetics - Amide Type - Select A Adverse Reaction (Verified 11/23/24 09:02) Nausea/Vom Anesthetics - Rafaela Type- Parabens Adverse Reaction (Verified 11/23/24 09:02) Nausea/Vom Medications ???Medication ???Instructions ???Recorded ???Confirmed ???Type chlorthalidone 25 mg tablet 25 mg PO DAILY blood pressure 11/2211/23/24 History levothyroxine 112 mcg tablet 112 mcg PO DAILY THYROID 12/13/21 11/23/24 History (Synthroid) albuterol sulfate 90 mcg/actuation 2 inh inhalation 4X/DAY PRN COUG H 08/01/22 11/23/24 History aerosol inhaler omeprazole 40 mg capsule,delayed 40 mg PO DAILY 11/14/22 11/23/24 H istory release apixaban 5 mg tablet (Eliquis) See Rx Instructions .Route 4 11/23/24 Rx .COMPLEX #180 tabs metoprolol succinate 100 mg 100 mg PO DAILY BLOOD PRESSURE #90 04/15/24 11/23/24 Rx tablet,extended release 24 hr tabs duloxetine 30 mg capsule,delayed 90 mg (3 x 30 mg) PO DAILY 5 11/23/24 Rx release DEPRESSION 90 days #270 caps bupropion HCl 300 mg 24 hr tablet, 300 mg PO QAM #90 tabs 11/23/24 11/23/24 Rx extended release mirabegron 25 mg tablet,extended 25 mg PO QDAY 11/23/24 11/23/24 Hi story release 24 hr Have you fallen in the past year?: No PFSH Medical History MDD (major depressive disorder) Nondisplaced fracture of fifth left metatarsal bone Nondisplaced fracture of fifth right metatarsal bone Chronic anticoagulation History of Uikaa-Uhpuwsolc-Aoojr (WPW) syndrome Paroxysmal atrial fibrillation with RVR Cataract Abnormal mammogram of left breast Over 65 years old COVID-19 (04/23/21) WPW (Uqlkh-Brhghxzoy-Uvfza syndrome) Chest pain Depression Hypothyroidism Family history of LA (myocardial infarction) SVT (supraventricular tachycardia) Essential hypertension Surgical History Hx of tubal ligation Hx of thyroidectomy Hx of hernia repair History of bilateral cataract extraction ( 02/2022) History of left heart catheterization (LHC) ( 08/28/20) History of radiofrequency ablation procedure for cardiac arrhythmia ( 2002) Family History Other Diabetes Heart disease Hypertension Myocardial infarction Social History Smoking Status: Never smoker alcohol intake: never substance use type: does not use caffeine: Yes Type: tea Number of servings: 6 HPI History of Present Illness History provided by: patient HPI: Yady Coombs is a 74 year old female who presents today for follow up evaluation. Patient reports that her brother has been in the hospital over the weekend secondary to CHF. This is her younger brother and she reports that he is in poor health. Was able to get through September which is rough secondary to Mother's Day, the of daughter and and daughter's birthday. Grandson has been doing largely well after having been abusing Benadryl and other natural substances. He will be going to career center for HVAC in near future. Feels like she is doing largely well with medications. Sleep has been doing well most of the time. Energy levels has been fair, but still somewhat low. Does feel like she hasn't been taking good care of self including not taking maintenance inhaler. Does feel like her hosue is messy. Review of Systems Constitutional Denies: fever(s), chills, change in weight or fatigue Eyes Denies: change in vision or blurry vision Ears, Nose, Mouth, Throat Denies: throat pain, neck pain or change in hearing Cardiovascular Reports: dyspnea (bad cough); Denies: chest pain Respiratory Reports: dyspnea (bad cough) and cough; Denies: wheezing Gastrointestinal Denies: abdominal pain, nausea, vomiting, diarrhea or constipation Genitourinary Denies: dysuria or urinary frequency Musculoskeletal Denies: back pain, neck pain, joint pain or muscle weakness Integumentary/Breast Denies: rash or new lesions Neurological Denies: headache(s), dizziness or confusion Endocrine Denies: fatigu (more content not included)... Normal [facility] Urgent Care Visit Reporton 0 08-14-2024 Urgent Care Visit Report [facility] [address], [address] [place] [address] OFFICE VISIT Date of Service: 08/14/24 MR#: [id number] Acct: [id number] Name: YADY COOMBS Rep #: [id number] : 1950 Provider: MORGAN herman Age/Sex: 73/F Location: [facility] Status: Signed Intake Vital Signs 08/04/24 09:03 08/14/24 13:13 Height 5 ft 2 in Weight: 163 lb BMI 29.8 BP 132/75 H 130/72 H Blood Pressure Location Lt brachial Position Sitting Sitting Respiration 18 Pulse 67 81 Pulse Source Monitor Temp 98.1 F Temp Source Oral Pulse Oximetry (%) 98 Oxygen Delivery Method room air Intake Visit Reasons: COUGH, BODY ACHES Accompanied by: Self Allergies Anesthetics - Amide Type - Select A Adverse Reaction (Verified 08/14/24 13:13) Nausea/Vom Anesthetics - Rafaela Type- Parabens Adverse Reaction (Verified 08/14/24 13:13) Nausea/Vom Medications ???Medication ???Instructions ???Recorded ???Confirmed ???Type chlorthalidone 25 mg tablet 25 mg PO DAILY blood pressure 11/2208/14/24 History levothyroxine 112 mcg tablet 112 mcg PO DAILY THYROID 12/13/21 08/14/24 History (Synthroid) albuterol sulfate 90 mcg/actuation 2 inh inhalation 4X/DAY PRN COUG H 08/01/22 08/14/24 History aerosol inhaler omeprazole 40 mg capsule,delayed 40 mg PO DAILY 11/14/22 08/14/24 H istory release apixaban 5 mg tablet (Eliquis) See Rx Instructions .Route 4 08/14/24 Rx .COMPLEX #180 tabs metoprolol succinate 100 mg 100 mg PO DAILY BLOOD PRESSURE #90 04/15/24 08/14/24 Rx tablet,extended release 24 hr tabs bupropion HCl 300 mg 24 hr tablet, 300 mg PO QAM #90 tabs 04/25/24 08/14/24 Rx extended release duloxetine 30 mg capsule,delayed 90 mg (3 x 30 mg) PO DAILY 4 08/14/24 Rx release DEPRESSION 90 days #270 caps doxycycline hyclate 100 mg capsule 100 mg PO BID 7 days #14 caps 08/14/24 Rx prednisone 20 mg tablet 40 mg (2 x 20 mg) PO QDAY 5 days 0 08/14/24 08/14/24 Rx #10 tabs Have you fallen in the past year?: No Nurse's Note: Patient has a cough, and body aches. Patient states this started Thursday. Patient had the flu a month ago. [facility] Medical History MDD (major depressive disorder) Nondisplaced fracture of fifth left metatarsal bone Nondisplaced fracture of fifth right metatarsal bone Chronic anticoagulation History of Xqmoq-Gqvlmjqtj-Fkdud (WPW) syndrome Paroxysmal atrial fibrillation with RVR Cataract Abnormal mammogram of left breast Over 65 years old COVID-19 (04/23/21) WPW (Nnowe-Cveqwtuju-Iugqq syndrome) Chest pain Depression Hypothyroidism Family history of LA (myocardial infarction) SVT (supraventricular tachycardia) Essential hypertension Surgical History Hx of tubal ligation Hx of thyroidectomy Hx of hernia repair History of bilateral cataract extraction ( 02/2022) History of left heart catheterization (LHC) ( 08/28/20) History of radiofrequency ablation procedure for cardiac arrhythmia ( 2002) Family History Other Diabetes Heart disease Hypertension Myocardial infarction Social History Smoking Status: Never smoker alcohol intake: never substance use type: does not use caffeine: Yes Type: tea Number of servings: 6 HPI HPI Details: YADY COOMBS, is a 73 F who presents to the office today for concerns regarding cough and bodyaches. This started 2 days ago. She states she was diagnosed with influenza 1 month ago. Prior to evaluation, she underwent COVID and influenza testing. Both of which were negative. She states her symptoms are not worsening. She denies known sick contacts. ROS Const Constitutional: Positive for body ache and fatigue; No chills, fever(s), headache(s), sleep problems or change in appetite Eyes Eyes: No blurry vision, change in vision, double vision, irritation, discharge, vision loss, dry eyes, bulging eyes, floaters, visual disturbances, eye pain, Light sensitivity, spots in vision, tunnel vision or other ENT ENT: Positive for ear or mastoid pain (Right), post nasal drip, hoarseness, neck pain (chronic) and sore throat (when cough and swallowing); No abnormal hearing, ear discharge, ear pressure, hearing loss, tinnitus, dizziness/vertigo, balance problems, nosebleed/epistaxis, nasal congestion, nose pain, sinus pressure, sinus pain, nasal discharge, headache(s), facial pain, dental pain, difficulty swallowing, bad breath, lip swelling, mouth lesions, mouth pain, tongue swelling or throat swelling Resp Respiratory: Positive for cough Cough: Yes non-productive, shortness (more content not included)... Normal [facility] MR/BMS.BPon 08-04-2024 MR/BMS.[address], [address] [place] [address] OFFICE VISIT Date of Service: 08/04/24 MR#: [id number] Acct: [id number] Name: YADY COOMBS Rep #: [id number] : 1950 Provider: Dr. Rinku Patel se, DO Age/Sex: 73/F Location: [facility] Status: Signed Intake Vital Signs 04/25/24 15:39 07/28/24 12:54 08/04/24 09:03 Height 5 ft 2 in 5 ft 2 in 5 ft 2 in Weight: 163 lb BMI 29.8 BP 132/75 H Blood Pressure Location Lt brachial Position Sitting Respiration 18 Pulse 67 Pulse Source Monitor BP Intake Visit Reasons: 3 M FU Accompanied by: Self Allergies Anesthetics - Amide Type - Select A Adverse Reaction (Verified 08/04/24 09:05) Nausea/Vom Anesthetics - Rafaela Type- Parabens Adverse Reaction (Verified 08/04/24 09:05) Nausea/Vom Medications ???Medication ???Instructions ???Recorded ???Confirmed ???Type chlorthalidone 25 mg tablet 25 mg PO DAILY blood pressure 11/2208/04/24 History levothyroxine 112 mcg tablet 112 mcg PO DAILY THYROID 12/13/21 08/04/24 History (Synthroid) albuterol sulfate 90 mcg/actuation 2 inh inhalation 4X/DAY PRN COUG H 08/01/22 08/04/24 History aerosol inhaler omeprazole 40 mg capsule,delayed 40 mg PO DAILY 11/14/22 08/04/24 H istory release apixaban 5 mg tablet (Eliquis) See Rx Instructions .Route 4 08/04/24 Rx .COMPLEX #180 tabs metoprolol succinate 100 mg 100 mg PO DAILY BLOOD PRESSURE #90 04/15/24 08/04/24 Rx tablet,extended release 24 hr tabs bupropion HCl 300 mg 24 hr tablet, 300 mg PO QAM #90 tabs 04/25/24 08/04/24 Rx extended release duloxetine 30 mg capsule,delayed 90 mg (3 x 30 mg) PO DAILY 4 08/04/24 Rx release DEPRESSION 90 days #270 caps Have you fallen in the past year?: No PFSH Medical History MDD (major depressive disorder) Nondisplaced fracture of fifth left metatarsal bone Nondisplaced fracture of fifth right metatarsal bone Chronic anticoagulation History of Yqfmi-Qblqblqic-Mzcfk (WPW) syndrome Paroxysmal atrial fibrillation with RVR Cataract Abnormal mammogram of left breast Over 65 years old COVID-19 (04/23/21) WPW (Ugupx-Becxvzwiv-Irjgn syndrome) Chest pain Depression Hypothyroidism Family history of LA (myocardial infarction) SVT (supraventricular tachycardia) Essential hypertension Surgical History Hx of tubal ligation Hx of thyroidectomy Hx of hernia repair History of bilateral cataract extraction ( 02/2022) History of left heart catheterization (LHC) ( 08/28/20) History of radiofrequency ablation procedure for cardiac arrhythmia ( 2002) Family History Other Diabetes Heart disease Hypertension Myocardial infarction Social History Smoking Status: Never smoker alcohol intake: never substance use type: does not use caffeine: Yes Type: tea Number of servings: 6 HPI History of Present Illness History provided by: patient HPI: Yady Coombs is a 73 year old female who presents today for follow up evaluation. Patient reports that she recently had the flu and continues to have a very bad cough. Feels like things are going pretty well, I think. Grandson, Dinh, has been on a good path after having been abusing pokeberries and moonflower. Had also been abusing benadryl, but has cut back how much her is using. She feels he has been much more rational in recent past. Had been going to [employer] however has stopped going, Patient has been going to [facility]. Has noticed some benefit with increase in Wellbutrin. Has more days where she feels more motivated and accomplished. Sleep at night has been good for the most part. Getting about 5-6 hours at night. Denies any significant side effects from medication. Feels like duloxetine continues to work well. Brother's health has been so-so. Review of Systems Constitutional Denies: fever(s), chills, change in weight or fatigue Eyes Denies: change in vision or blurry vision Ears, Nose, Mouth, Throat Denies: throat pain, neck pain or change in hearing Cardiovascular Reports: dyspnea (bad cough); Denies: chest pain Respiratory Reports: dyspnea (bad cough) and cough; Denies: wheezing Gastrointestinal Denies: abdominal pain, nausea, vomiting, diarrhea or constipation Genitourinary Denies: dysuria or urinary frequency Musculoskeletal Denies: back pain, neck pain, joint pain or muscle weakness Integumentary/Breast Denies: rash or new lesions Neurological Denies: headache(s), dizziness or confusion Endocrine Denies: fatigue or excessive sweating Hematologic/Lymphatic Denies: easy (more content not included)... Normal [facility] 12 Lead EKG performed by [facility] [place] 07[place]24 12 Lead EKG performed by [facility] [address] [place] [address] 12 Lead EKG performed by [facility] 07/28/24 1628 MR#: [id number] Acct: [id number] Name: YADY COOMBS Rep #: [id number] : 1950 73 From: To Hernandez MD Attending Dr: Dr. To Hernandez MD Status: DE P AMB Ordering Dr: To Hernandez MD Date: 07/28/24 Location: [facility] [place] Sex: F C Admitted: BMS/12 Lead EKG performed by [facility] [place] Report Interpretation Sinus Bradycardia WITHIN NORMAL LIMITSElectronically signed on 07/28/2024 at 13:[address] To Hernandez [employer] Version 8610 07/28/24 1334 Date To Hernandez MD CC: Dr. Ana Lilia Sagastume, Date Dictated: 07/28/248 Date Transcribed: 07/28/241627 Financial Counselor: Signed Normal [facility] Cardiology Visit Reporton Cardiology Visit Report [facility] [address] [place] [address] OFFICE VISIT Date of Service: 07/28/24 MR#: [id number] Acct: [id number] Name: YADY COOMBS Rep #: [id number] : 1950 Provider: Dr. To merida MD Age/Sex: 73/F Location: [facility] [place] Status: Signed HPI HPI History of Present Illness Details: Patient is a 73-year-old white female that comes today for monitoring of her cardiovascular status. Patient is recovering from influenza she is still coughing but her wheezing has resolved. She noted that she was in atrial fibrillation this past Thursday she took an extra metoprolol and it broke within an hour. She has episodes of atrial fibs about once every 3 months. These last short periods of time and are not sustained. Patient carries a history of previous WPW ablation and was evaluated by Dr. Andrade in the past and did not feel that radiofrequency ablation of her atrial fibs was indicated. The patient has been well-controlled on metoprolol and Eliquis. The patient denies any nuisance bleeding. She is active in her home environment. We did discuss the financial burden of Cassiequis and she is going to reach out she believes she can get it cheaper on a 3-month mail away plan that has started through her insurance company. Intake Vital Signs 04/25/24 15:39 07/21/24 10:11 07/28/24 12:54 Height 5 ft 2 in 5 ft 2 in 5 ft 2 in Weight: 163 lb BMI 29.8 BP 124/71 H 120/69 Blood Pressure Location Rt brachial Lt brachial Position Sitting Sitting Respiration 12 18 Pulse 62 59 L Pulse Source Monitor Monitor Pulse Oximetry (%) 96 97 Oxygen Delivery Method room air Intake Visit Reasons: 6 M FU Pourer Metal Required: No Accompanied by: Self Is patient in pain?: No Allergies Anesthetics - Amide Type - Select A Adverse Reaction (Verified 07/28/24 12:55) Nausea/Vom Anesthetics - Rafaela Type- Parabens Adverse Reaction (Verified 07/28/24 12:55) Nausea/Vom Medications ???Medication ???Instructions ???Recorded ???Confirmed ???Type chlorthalidone 25 mg tablet 25 mg PO DAILY blood pressure 11/2207/28/24 History levothyroxine 112 mcg tablet 112 mcg PO DAILY THYROID 12/13/21 07/28/24 History (Synthroid) albuterol sulfate 90 mcg/actuation 2 inh inhalation 4X/DAY PRN COUG H 08/01/22 07/28/24 History aerosol inhaler omeprazole 40 mg capsule,delayed 40 mg PO DAILY 11/14/22 07/28/24 H istory release apixaban 5 mg tablet (Eliquis) See Rx Instructions .Route 4 07/28/24 Rx .COMPLEX #180 tabs metoprolol succinate 100 mg 100 mg PO DAILY BLOOD PRESSURE #90 04/15/24 07/28/24 Rx tablet,extended release 24 hr tabs bupropion HCl 300 mg 24 hr tablet, 300 mg PO QAM #90 tabs 04/25/24 07/28/24 Rx extended release duloxetine 30 mg capsule,delayed 90 mg (3 x 30 mg) PO DAILY 4 07/28/24 Rx release DEPRESSION 90 days #270 caps Ejection fraction %: 65 Have you fallen in the past year?: No PFSH Medical History MDD (major depressive disorder) Nondisplaced fracture of fifth left metatarsal bone Nondisplaced fracture of fifth right metatarsal bone Chronic anticoagulation History of Mnikw-Wsflrmisj-Vfdhw (WPW) syndrome Paroxysmal atrial fibrillation with RVR Cataract Abnormal mammogram of left breast Over 65 years old COVID-19 (04/23/21) WPW (Zreua-Pazffzsfq-Grmnv syndrome) Chest pain Depression Hypothyroidism Family history of LA (myocardial infarction) SVT (supraventricular tachycardia) Essential hypertension Surgical History Hx of tubal ligation Hx of thyroidectomy Hx of hernia repair History of bilateral cataract extraction ( 02/2022) History of left heart catheterization (LHC) ( 08/28/20) History of radiofrequency ablation procedure for cardiac arrhythmia ( 2002) Family History Other Diabetes Heart disease Hypertension Myocardial infarction Social History Smoking Status: Never smoker alcohol intake: never substance use type: does not use caffeine: Yes Type: tea Number of servings: 6 ROS Const Const: Positive for fatigue and weakness ENT ENT: Negative for dizziness or balance problems Cardio Chest Pain: No Palpitations: Yes Edema: None Muscle aches with walking: None Resp Respiratory: Positive for SOB with activity; Negative for SOB at rest or SOB orthopnea SOB lying down GI GI: Negative nausea, vomiting or heartburn Musc Musc: Negative for muscle weakness or balance problems Neuro Neuro: Positive for weakness; Negative for dizziness, lightheadedness, near syncope or syncope (more content not included)... Normal [facility] Chest PA and Lateralon 07-21 Chest PA and Lateral [facility] [address] [place] [address] Chest PA and Lateral MR#: [id number] Acct: [id number] Name: YADY COOMBS Rep #: [id number] : 1950 F 73 From: Kenton ferris MD PCP: Dr. Ana Lilia Sagastume, DO Status: DEP AMB Study: Chest PA and Lateral Date of Exam: 07/21/24 Exam# [id number] Ordering Dr: Lindsey Browne MD PROCEDURE: CHEST PA AND LATERAL REASON FOR EXAM: Chest pain and shortness of breath. TECHNIQUE: PA and lateral views were obtained. COMPARISON: Comparison is made with prior study dated June 19, 2023. FINDINGS: The heart size is normal. The mediastinal contour is unremarkable. The lungs are clear. The bones are unremarkable. RAD/Chest PA and Lateral IMPRESSION: NEGATIVE CHEST Reading Location: [id number] CC: Dr. Lindsey Browne MD; Dr. Ana Lilia Sagastume DO Financial Counselor: Signed Normal [facility] Urgent Care Visit Reporton 0 07-15-2024 Urgent Care Visit Report [facility] [address], [address] [place] [id number] OFFICE VISIT Date of Service: 07/15/24 MR#: [id number] Acct: [id number] Name: YADY COOMBS Rep #: [id number] : 1950 Provider: ALBAN Kent Age/Sex: 73/F Location: [facility] Status: Signed Intake Vital Signs 04/25/24 15:39 07/15/24 11:41 Height 5 ft 2 in 5 ft 2 in BP 124/71 H 146/62 H Blood Pressure Location Rt brachial Lt brachial Position Sitting Sitting Respiration 12 16 Pulse 62 67 Pulse Source Monitor NIBP Temp 98.1 F Temp Source Oral Pulse Oximetry (%) 96 98 Oxygen Delivery Method room air Intake Visit Reasons: COUGH, SORE THROAT Chief Complaint: cough, ST, BA, congest Pourer Metal Required: No Is patient in pain?: No Allergies Anesthetics - Amide Type - Select A Adverse Reaction (Verified 07/15/24 11:58) Nausea/Vom Anesthetics - Rafaela Type- Parabens Adverse Reaction (Verified 07/15/24 11:58) Nausea/Vom Is last menstrual period known: No Post menopausal: Yes Patient : No Have you fallen in the past year?: No Nurse's Note: cough, ST, BA, congest x 4 days with wheezing. hx asthma, admits to not taking daily asthma meds as directed for months. denies fever. [facility] Medical History (Updated 07/15/24 @ 12:13 by Manpreet PHOENIX, PA) MDD (major depressive disorder) Nondisplaced fracture of fifth left metatarsal bone Nondisplaced fracture of fifth right metatarsal bone Chronic anticoagulation History of Csexj-Ecgowqowv-Nosrc (WPW) syndrome Paroxysmal atrial fibrillation with RVR Cataract Abnormal mammogram of left breast Over 65 years old COVID-19 (04/23/21) WPW (Lnnkx-Txzieldpg-Mhgdq syndrome) Chest pain Depression Hypothyroidism Family history of LA (myocardial infarction) SVT (supraventricular tachycardia) Essential hypertension Surgical History Hx of tubal ligation Hx of thyroidectomy Hx of hernia repair History of bilateral cataract extraction ( 02/2022) History of left heart catheterization (LHC) ( 08/28/20) History of radiofrequency ablation procedure for cardiac arrhythmia ( 2002) Family History Other Diabetes Heart disease Hypertension Myocardial infarction Social History Smoking Status: Never smoker alcohol intake: never substance use type: does not use caffeine: Yes Type: tea Number of servings: 6 HPI HPI Chief Complaint: cough, ST, BA, congest Details: YADY COOMBS, is a 73 F who presents to the office today for complaint of cough, sore throat, body aches and congestion for the past 5 days. Patient denies hemoptysis or difficulty breathing. She denies fever however has had chills and sweats. No nausea, vomiting or diarrhea. No loss of taste or smell. No other associated symptoms or alleviating/aggravating factors. ROS Const Constitutional: Positive for other (ROS negative x6 except what was placed in HPI) Exam Const General: cooperative and well developed HENMT Head: normal to inspection and atraumatic Ears: hearing grossly normal bilaterally Nose: nasal discharge clear Face and sinus: normal facial exam Mouth: oral mucosae normal Throat: abnormal tonsil bilaterally hypertrophy 1+ Resp Effort Inspection: normal respiratory effort and no audible wheezes Auscultation: Bilateral: Clear to Auscultation Cardio Palpation: normal PMI Rate: regular rate Rhythm: regular rhythm Neuro General: patient alert and CN's II-XI intact bilaterally Psych Appearance: grossly normal Mental Status: mental status grossly normal Coding Level of Care Code Off vis,new,level 3 Diagnoses Influenza due to influenza virus, type A, human J10.1 Assessment and Plan Assessment and Plan (1) Influenza due to influenza virus, type A, human: Status: Acute Plan: Patient tested positive for influenza A in the office today. Encouraged to get plenty of rest, drink lots of clear liquids, and use Tylenol or Ibuprofen (unless contraindicated) for fever and comfort. Patient also educated on other symptomatic management techniques. To be seen in 7-10 days if no improvement; sooner if worsening of symptoms. Patient advised of potential red flags and when appropriate to report to the ED. Patient verbalized understanding and agreement with all the above. Orders: Orders POC FLU A B Today R05.9 - Cough, unspecified POC Rapid SARS Antigen Today Clinical Quality Measures Falls Risk Screening/Assistive Devices Have you fallen in the past year?: No 07/15/24 1214 Date Manpreet Bravo Signature: Date (more content not included)... Normal [facility] MR/BMS.BPon 04-25-2024 MR/BMS.BP [address], [address] [place] [address] OFFICE VISIT Date of Service: 04/25/24 MR#: [id number] Acct: [id number] Name: YADY COOMBS Rep #: [id number] : 1950 Provider: Dr. Rinku Patel se, DO Age/Sex: 73/F Location: [facility] Status: Signed Intake Vital Signs 12/15/23 08:59 12/31/23 13:50 04/25/24 15:39 Height 5 ft 2 in 5 ft 2 in 5 ft 2 in Weight: 161 lb BMI 29.4 BP 137/80 H 133/76 H 124/71 H Blood Pressure Location Rt brachial Lt brachial Rt brachial Position Sitting Sitting Sitting Respiration 18 12 Pulse 59 L 67 62 Pulse Source Monitor Monitor Monitor Pulse Oximetry (%) 97 96 BP Intake Visit Reasons: 3 M FU Allergies Anesthetics - Amide Type - Select A Adverse Reaction (Verified 12/31/23 13:49) Nausea/Vom Anesthetics - Rafaela Type- Parabens Adverse Reaction (Verified 12/31/23 13:49) Nausea/Vom Have you fallen in the past year?: No PFSH Medical History MDD (major depressive disorder) Nondisplaced fracture of fifth left metatarsal bone Nondisplaced fracture of fifth right metatarsal bone Chronic anticoagulation History of Inxds-Essqjodjv-Wsjbv (WPW) syndrome Paroxysmal atrial fibrillation with RVR Cataract Abnormal mammogram of left breast Over 65 years old COVID-19 (04/23/21) WPW (Fngzm-Fyxexmlrw-Esjbd syndrome) Chest pain Depression Hypothyroidism Family history of LA (myocardial infarction) SVT (supraventricular tachycardia) Essential hypertension Surgical History Hx of tubal ligation Hx of thyroidectomy Hx of hernia repair History of bilateral cataract extraction ( 02/2022) History of left heart catheterization (LHC) ( 08/28/20) History of radiofrequency ablation procedure for cardiac arrhythmia ( 2002) Family History Other Diabetes Heart disease Hypertension Myocardial infarction Social History Smoking Status: Never smoker alcohol intake: never substance use type: does not use caffeine: Yes Type: tea Number of servings: 6 HPI History of Present Illness History provided by: patient HPI: Yady Coombs is a 73 year old female who presents today for follow up evaluation. Patient reports that she has been so-so. States that she hasn't been exceptionally bad but not been really happy either. Continues to have stress related to grandson having some psychotic symptoms after attempting to abuse pokeberries and moonflower. Unclear if suicidal or just trying to get high. He recently told her that he hasn't had any recent relapses, and patient recently got him to enroll at [employer] for peer support groups. Patient reports that she has started going to [facility] family support group. Her brother continues to not treat his lung cancer. Review of Systems Constitutional Denies: fever(s), chills, change in weight or fatigue Eyes Denies: change in vision or blurry vision Ears, Nose, Mouth, Throat Denies: throat pain, neck pain or change in hearing Cardiovascular Reports: dyspnea (with recent URI); Denies: chest pain Respiratory Reports: dyspnea (with recent URI); Denies: cough or wheezing Gastrointestinal Denies: abdominal pain, nausea, vomiting, diarrhea or constipation Genitourinary Denies: dysuria or urinary frequency Musculoskeletal Denies: back pain, neck pain, joint pain or muscle weakness Integumentary/Breast Denies: rash or new lesions Neurological Denies: headache(s), dizziness or confusion Endocrine Denies: fatigue or excessive sweating Hematologic/Lymphatic Denies: easy bruising or easy bleeding Allergic/Immunologic Denies: wheezing Exam Mental Status Exam - Psych Appearance casually dressed Attitude cooperative Activity/Motor Behavior MSE activity/motor behavior finding no adventitious movements Speech regular rate, regular volume and regular prosody Mood other (Not good but not bad) Affect restricted Thought Process linear, logical and coherent Thought Content no delusions, no hallucinations and compulsions (some hoarding behavior) Suicidal Ideation none Homicidal Ideation none Attention intact Concentration intact Sensorium/Orientation awake, alert and oriented x3 Memory/Cognition other (appropriate for stated age) Insight good Judgement good Assessment Plan Assessment Plan (1) MDD (major depressive disorder): Plan: - Continue duloxetine 90 mg every day ???Some continued lack of improvement with depressive symptoms therefore we will titrate Wellbutrin to 300 mg every day and attempt to better control mood symptoms ???Patient was informed of the risks (more content not included)... Normal [facility] Cardiology Visit Reporton Cardiology Visit Report [facility] [address] [place] [address] OFFICE VISIT Date of Service: 12/31/23 MR#: [id number] Acct: [id number] Name: YADY COOMBS Rep #: [id number] : 1950 Provider: ALBAN Tao Age/Sex: 73/F [place] [facility] [place] Status: Signed HPI [facility] History of Present Illness Details: Yady Coombs is a 73 year-old white female who presents to the office for a cardiovascular follow-up visit. She has a history of atrial fibrillation with RVR, status post radiofrequency ablation for WPW many years ago. This was done by Dr. Andrade. She also saw Dr. Andrade for question of radiofrequency ablation for paroxysmal atrial fibrillation versus antiarrhythmic therapy. They opted not to pursue further treatment at that time. Echocardiogram in 2023 demonstrated an EF of 65%. Pt has had short episodes of AFib. These are short and do not happen often. She does not have any chest discomfort/heaviness/tight ness. She does not have any worsening symptoms of shortness of breath, however she does notes that she has BUTLER. She does not have any orthopnea. She denies PND. She does not have any symptoms of congestive heart failure. She does occasionally have lightheadedness/dizziness. She does not have any near-syncope or syncope. She does not have any lower extremity edema. She does not have any symptoms of claudication. Intake Vital Signs 10/01/23 10:04 12/15/23 08:59 12/31/23 13:50 Height 5 ft 2 in 5 ft 2 in 5 ft 2 in Weight: 161 lb BMI 29.4 BP 137/80 H 133/76 H Blood Pressure Location Rt brachial Lt brachial Position Sitting Sitting Respiration 18 Pulse 59 L 67 Pulse Source Monitor Monitor Pulse Oximetry (%) 97 Intake Visit Reasons: 6 M FU Pourer Metal Required: No Is patient in pain?: No Allergies Anesthetics - Amide Type - Select A Adverse Reaction (Verified 12/31/23 13:49) Nausea/Vom Anesthetics - Rafaela Type- Parabens Adverse Reaction (Verified 12/31/23 13:49) Nausea/Vom Medications ???Medication ???Instructions ???Recorded ???Confirmed ???Type chlorthalidone 25 mg tablet 25 mg PO DAILY blood pressure 12/06/19 12/31/23 History alendronate 70 mg tablet 70 mg PO SA OSTEOPEROSIS 05/28/21 12/31/23 History levothyroxine 112 mcg tablet 112 mcg PO DAILY THYROID 12/13/21 12/31/23 History (Synthroid) albuterol sulfate 90 mcg/actuation 2 inh inhalation 4X/DAY PRN COUGH 08/01/22 12/31/23 History aerosol inhaler omeprazole 40 mg capsule,delayed 40 mg PO DAILY 11/14/22 12/31/23 History release apixaban 5 mg tablet (Eliquis) See Rx Instructions .Route 03/19/23 12/31/23 Rx .COMPLEX #180 tabs metoprolol succinate 100 mg 100 mg PO DAILY BLOOD PRESSURE #90 04/10/23 12/31/23 Rx tablet,extended release 24 hr tabs beclomethasone dipropionate 80 2 inh inhalation BID COUGH 06/17/23 12/31/23 History mcg/actuation HFA breath activated aerosol (Qvar RediHaler) duloxetine 30 mg capsule,delayed 90 mg (3 x 30 mg) PO DAILY 10/01/23 12/31/23 Rx release DEPRESSION 90 days #270 caps bupropion HCl 150 mg 24 hr tablet, 150 mg PO QAM #30 tabs 12/31/23 Rx extended release Have you fallen in the past year?: No PFSH Medical History MDD (major depressive disorder) Nondisplaced fracture of fifth left metatarsal bone Nondisplaced fracture of fifth right metatarsal bone Chronic anticoagulation History of Pnfhn-Ynajexjxp-Bzecn (WPW) syndrome Paroxysmal atrial fibrillation with RVR Cataract Abnormal mammogram of left breast Over 65 years old COVID-19 (04/23/21) WPW (Zigvy-Alikgyzvd-Dqqzp syndrome) Chest pain Depression Hypothyroidism Family history of LA (myocardial infarction) SVT (supraventricular tachycardia) Essential hypertension Surgical History Hx of tubal ligation Hx of thyroidectomy Hx of hernia repair History of bilateral cataract extraction ( 02/2022) History of left heart catheterization (LHC) ( 08/28/20) History of radiofrequency ablation procedure for cardiac arrhythmia ( 2002) Family History Other Diabetes Heart disease Hypertension Myocardial infarction Social History Smoking Status: Never smoker alcohol intake: never substance use type: does not use caffeine: Yes Type: tea Number of servings: 6 ROS Const Const: Negative for fatigue or weakness ENT ENT: Negative for dizziness or balance problems Cardio Chest Pain: No Palpitations: Yes feels like its: fast Edema: None Muscle aches with walking: None Resp Respiratory: Positive for SOB with activity (attributes to being overwe (more content not included)... Normal [facility] MR/BMS.BPon 12-15-2023 MR/BMS.BP [facility] [address] [place] [address], [address] [place] [address] OFFICE VISIT Date of Service: 12/15/23 MR#: [id number] Acct: [id number] Name: YADY COOMBS Rep #: [id number] : 1950 Provider: Dr. Rinku Patel se, DO Age/Sex: 73/F [place] [facility] [place] Status: Signed Intake Vital Signs 10/01/23 10:04 12/15/23 08:58 12/15/23 08:59 Height 5 ft 2 in 5 ft 2 in 5 ft 2 in BP 137/80 H Blood Pressure Location Rt brachial Position Sitting Pulse 59 L Pulse Source Monitor BP Intake Visit Reasons: 2 M FU Pourer Metal Required: No Accompanied by: Self Is patient in pain?: No Allergies Anesthetics - Amide Type - Select A Adverse Reaction (Verified 12/15/23 09:00) Nausea/Vom Anesthetics - Rafaela Type- Parabens Adverse Reaction (Verified 12/15/23 09:00) Nausea/Vom Medications ???Medication ???Instructions ???Recorded ???Confirmed ???Type chlorthalidone 25 mg tablet 25 mg PO DAILY blood pressure 12/06/19 12/15/23 History alendronate 70 mg tablet 70 mg PO SA OSTEOPEROSIS 05/28/21 12/15/23 History levothyroxine 112 mcg tablet 112 mcg PO DAILY THYROID 12/13/21 12/15/23 History (Synthroid) calcium carbonate 500 mg-vitamin 1 tab PO QHS SUPPLEMENT 07/20/22 12/15/23 History D3 10 mcg (400 unit) tablet (Calcium 500 + D) albuterol sulfate 90 mcg/actuation 2 inh inhalation 4X/DAY PRN COUGH 08/01/22 12/15/23 History aerosol inhaler mirabegron 25 mg tablet,extended 25 mg PO DAILY 11/14/22 12/15/23 History release 24 hr (Myrbetriq) omeprazole 40 mg capsule,delayed 40 mg PO DAILY 11/14/22 12/15/23 History release apixaban 5 mg tablet (Eliquis) See Rx Instructions .Route 03/19/23 12/15/23 Rx .COMPLEX #180 tabs metoprolol succinate 100 mg 100 mg PO DAILY BLOOD PRESSURE #90 04/10/23 12/15/23 Rx tablet,extended release 24 hr tabs beclomethasone dipropionate 80 2 inh inhalation BID COUGH 06/17/23 12/15/23 History mcg/actuation HFA breath activated aerosol (Qvar RediHaler) fluticasone propionate 50 1 spray intranasal BID 06/17/23 12/15/23 History mcg/actuation nasal spray,suspension (Flonase Allergy Relief) azithromycin 250 mg tablet See Rx Instructions PO .COMPLEX #6 09/19/23 12/15/23 Rx tabs benzonatate 100 mg capsule 100 mg PO TID #20 caps 09/19/23 12/15/23 Rx bupropion HCl 150 mg 24 hr tablet, 150 mg PO QAM #30 tabs 10/01/23 12/15/23 Rx extended release duloxetine 30 mg capsule,delayed 90 mg (3 x 30 mg) PO DAILY 10/01/23 12/15/23 Rx release DEPRESSION 90 days #270 caps Have you fallen in the past year?: No Current gender identity: female Nurse's Note: Presents to the office today for follow up. [facility] Medical History Abnormal mammogram of left breast Cataract Chest pain Chronic anticoagulation COVID-19 (04/23/21) Depression Essential hypertension Family history of LA (myocardial infarction) History of Wjldj-Gvasgcxew-Sbisl (WPW) syndrome Hypothyroidism MDD (major depressive disorder) Nondisplaced fracture of fifth left metatarsal bone Nondisplaced fracture of fifth right metatarsal bone Over 65 years old Paroxysmal atrial fibrillation with RVR SVT (supraventricular tachycardia) WPW (Trgvx-Glecgljsj-Epxfg syndrome) Surgical History History of bilateral cataract extraction ( 02/2022) History of left heart catheterization (LHC) ( 08/28/20) History of radiofrequency ablation procedure for cardiac arrhythmia ( 2002) Hx of hernia repair Hx of thyroidectomy Hx of tubal ligation Family History Other Diabetes Heart disease Hypertension Myocardial infarction Social History Smoking Status: Never smoker alcohol intake: never substance use type: does not use caffeine: Yes Type: tea Number of servings: 6 HPI History of Present Illness History provided by: patient HPI: Yady Coombs is a 73 year old female who presents today for follow up evaluation. Patient reports that her oldest grandson was recently transported to [facility] secondary to abusing Benadryl since last year and also recently using Moonflower seeds and having some psychosis/hallucinations. This happened on the 03/04. Recently her next door neighbor of cancer which has been hard. Also has had some waves of grief around losing her daughter, was the 2 year anniversary in the middle of September of her . Is worried about her brother having lung cancer and him not taking action to treating. Is able to sleep off and on. Does have good nights, but then has nights of broken sleep. Denies any significant benefit with the use of wellbutrin to this point. Does feel maybe there is a little better energy. Did recently get a n (more content not included)... Normal [facility] CBC W/Diff, Automatedon 11-23 Absolute Lymph 1.65 X10 3/uL Normal 0.83-4.51 [facility] Comment on above: Performed By: #### L 501.9520, L500.4100, L100.0100, L503.0105, L500.4050, L400.0001, L502.0250 #### [facility] [address] [place], [address] Absolute Neut 4.6 X10 3/uL Normal 2.0-7.7 [facility] Comment on above: Performed By: #### L 501.9520, L500.4100, L100.0100, L503.0105, L500.4050, L400.0001, L502.0250 #### [facility] [address] [place], [address] Basophils/100 WBC (Bld) 0.8 % Normal 0-1 [facility] Comment on above: Performed By: #### L 501.9520, L500.4100, L100.0100, L503.0105, L500.4050, L400.0001, L502.0250 #### [facility] [address] [place], [address] Eosinophils/100 WBC (Bld) 3.4 % Normal 0-5 [facility] Comment on above: Performed By: #### L 501.9520, L500.4100, L100.0100, L503.0105, L500.4050, L400.0001, L502.0250 #### [facility] [address] [place], [address] Erythrocyte distribution width (RBC) [Ratio] 14.6 % Normal 11.6-14.6 [facility] Comment on above: Performed By: #### L 501.9520, L500.4100, L100.0100, L503.0105, L500.4050, L400.0001, L502.0250 #### [facility] [address] [place], [address] Hematocrit (Bld) [Volume fraction] 41.1 % Normal 37-47 [facility] Comment on above: Performed By: #### L 501.9520, L500.4100, L100.0100, L503.0105, L500.4050, L400.0001, L502.0250 #### [facility] [address] [place], [address] Hemoglobin (Bld) [Mass/Vol] 13.1 g/dL Normal 12.0-15.0 [facility] Comment on above: Performed By: #### L 501.9520, L500.4100, L100.0100, L503.0105, L500.4050, L400.0001, L502.0250 #### [facility] [address] [place], [address] IG% 0.300 Normal 0.0-0.9 [facility] Comment on above: Result Comment: IG% - Immature Granulocytes (promyelocytes, myelocytes and metamyelocytes) > 1% indicates that a LEFT SHIFT is Present. Performed By: #### L 501.9520, L500.4100, L100.0100, L503.0105, L500.4050, L400.0001, L502.0250 #### [facility] [address], [address] Lymphocytes/100 WBC (Bld) 22.4 % Normal 19-41 [facility] Comment on above: Performed By: #### L 501.9520, L500.4100, L100.0100, L503.0105, L500.4050, L400.0001, L502.0250 #### [facility] [address] [place], [address] MCH (RBC) [Entitic mass] 25.5 pg Low 27.0-32.0 [facility] Comment on above: Performed By: #### L 501.9520, L500.4100, L100.0100, L503.0105, L500.4050, L400.0001, L502.0250 #### [facility] [address] [place], [address] MCHC (RBC) [Mass/Vol] 31.9 g/dL Low 32-36 [facility] Comment on above: Performed By: #### L 501.9520, L500.4100, L100.0100, L503.0105, L500.4050, L400.0001, L502.0250 #### [facility] [address] [place], [address] MCV (RBC) [Entitic vol] 80.0 fL Low 81-99 [facility] Comment on above: Performed By: #### L 501.9520, L500.4100, L100.0100, L503.0105, L500.4050, L400.0001, L502.0250 #### [facility] [address] [place], [address] Monocytes/100 WBC (Bld) 10.7 % High 0-10 [facility] Comment on above: Performed By: #### L 501.9520, L500.4100, L100.0100, L503.0105, L500.4050, L400.0001, L502.0250 #### [facility] [address] [place], [address] Neutrophils/100 WBC (Bld) 62.4 % Normal 47-70 [facility] Comment on above: Performed By: #### L 501.9520, L500.4100, L100.0100, L503.0105, L500.4050, L400.0001, L502.0250 #### [facility] [address] [place], [address] Nucleated RBC (Bld) [#/Vol] 0 10*3/uL Normal 0-5 [facility] Comment on above: Performed By: #### L 501.9520, L500.4100, L100.0100, L503.0105, L500.4050, L400.0001, L502.0250 #### [facility] [address] [place], [address] Platelet mean volume (Bld) [Entitic vol] 10.5 fL Normal 6.2-12.0 [facility] Comment on above: Performed By: #### L 501.9520, L500.4100, L100.0100, L503.0105, L500.4050, L400.0001, L502.0250 #### [facility] [address] [place], [address] Platelets (Bld) [#/Vol] 351 10*3/uL Normal 150-450 [facility] Comment on above: Performed By: #### L 501.9520, L500.4100, L100.0100, L503.0105, L500.4050, L400.0001, L502.0250 #### [facility] [address] [place], [address] RBC (Bld) [#/Vol] 5.14 10*6/uL Normal 4.2-5.[address] [facility] Comment on above: Performed By: #### L 501.9520, L500.4100, L100.0100, L503.0105, L500.4050, L400.0001, L502.0250 #### [facility] [address] [place], [address] RDW SD 42.0 fl Normal 35.1-43.9 [facility] Comment on above: Performed By: #### L 501.9520, L500.4100, L100.0100, L503.0105, L500.4050, L400.0001, L502.0250 #### [facility] [address] [place], [address] WBC (Bld) [#/Vol] 7.4 10*3/uL Normal 4.4-11.0 [facility] Comment on above: Performed By: #### L 501.9520, L500.4100, L100.0100, L503.0105, L500.4050, L400.0001, L502.0250 #### [facility] [address] [place], [address] Comprehensive [facility]23 Albumin [Mass/Vol] 3.3 g/dL Normal 3.2-5.0 [facility] Comment on above: Performed By: #### L 501.9520, L500.4100, L100.0100, L503.0105, L500.4050, L400.0001, L502.0250 #### [facility] [address] [place], [address] Albumin/Globulin [Mass ratio] 1.0 {ratio} Normal 0.9-2.4 [facility] Comment on above: Performed By: #### L 501.9520, L500.4100, L100.0100, L503.0105, L500.4050, L400.0001, L502.0250 #### [facility] [address] [place], [address] ALK P 73 U/L Normal 45-117 [facility] Comment on above: Performed By: #### L 501.9520, L500.4100, L100.0100, L503.0105, L500.4050, L400.0001, L502.0250 #### [facility] [address] [place], [address] ALT [Catalytic activity/Vol] 24 U/L Normal 13-56 [facility] Comment on above: Performed By: #### L 501.9520, L500.4100, L100.0100, L503.0105, L500.4050, L400.0001, L502.0250 #### [facility] [address] [place], [address] AST [Catalytic activity/Vol] 21 U/L Normal 15-37 [facility] Comment on above: Performed By: #### L 501.9520, L500.4100, L100.0100, L503.0105, L500.4050, L400.0001, L502.0250 #### [facility] [address] [place], [address] Bilirubin [Mass/Vol] 0.40 mg/dL Normal 0.20-1.00 [facility] Comment on above: Result Comment: For patients on eltrombopag therapy, use of Dimension [place] TBIL is not recommended. Performed By: #### L 501.9520, L500.4100, L100.0100, L503.0105, L500.4050, L400.0001, L502.0250 #### [facility] [address] [place], [address] BUN/CRE 20.5 RATIO High 10-20 [facility] Comment on above: Performed By: #### L 501.9520, L500.4100, L100.0100, L503.0105, L500.4050, L400.0001, L502.0250 #### [facility] [address] [place], [address] CA,Total 9.1 mg/dL Normal 8.5-10.1 [facility] Comment on above: Performed By: #### L 501.9520, L500.4100, L100.0100, L503.0105, L500.4050, L400.0001, L502.0250 #### [facility] [address] [place], [address] Chloride [Moles/Vol] 102 mmol/L Normal 98-107 [facility] Comment on above: Performed By: #### L 501.9520, L500.4100, L100.0100, L503.0105, L500.4050, L400.0001, L502.0250 #### [facility] [address] [place], [address] CO2 [Moles/Vol] 31.0 mmol/L Normal 21.0-32.0 [facility] Comment on above: Performed By: #### L 501.9520, L500.4100, L100.0100, L503.0105, L500.4050, L400.0001, L502.0250 #### [facility] [address] [place], [address] Creatinine [Mass/Vol] 0.93 mg/dL Normal 0.55-1.02 [facility] Comment on above: Result Comment: The validity of the calculated GFR GFRAA in patients over 70 years has not been determined. Clinical correlation is essential. Performed By: #### L 501.9520, L500.4100, L100.0100, L503.0105, L500.4050, L400.0001, L502.0250 #### [facility] [address] [place], [address] EST GFR - AA 76 mL/min Normal >60 [facility] Comment on above: Result Comment: Afri can Citizen [place] GFR Calc Performed By: #### L 501.9520, L500.4100, L100.0100, L503.0105, L500.4050, L400.0001, L502.0250 #### [facility] [address] [place], [address] GAP 5 Normal 5-15 [facility] Comment on above: Performed By: #### L 501.9520, L500.4100, L100.0100, L503.0105, L500.4050, L400.0001, L502.0250 #### [facility] [address] [place], [address] GFR/1.73 sq M.predicted among non-blacks MDRD (S/P/Bld) [Vol rate/Area] 63 mL/min/{1.73_m2} Normal >60 [facility] Comment on above: Result Comment: Non- GFR Calc Performed By: #### L 501.9520, L500.4100, L100.0100, L503.0105, L500.4050, L400.0001, L502.0250 #### [facility] [address] [place], [address] Globulin (S) [Mass/Vol] 3.2 g/dL Normal 2.2-4.2 [facility] Comment on above: Performed By: #### L 501.9520, L500.4100, L100.0100, L503.0105, L500.4050, L400.0001, L502.0250 #### [facility] [address] [place], [address] Glucose [Mass/Vol] 124 mg/dL High 74-106 [facility] Comment on above: Result Comment: Fast ing Glucose result from 100 to 125 mg/dL suggests IMPAIRED HOMEOSTASIS per A.D.A. criteria. Performed By: #### L 501.9520, L500.4100, L100.0100, L503.0105, L500.4050, L400.0001, L502.0250 #### [facility] [address] [place], [address] Potassium [Moles/Vol] 3.7 mmol/L Normal 3.5-5.1 [facility] Comment on above: Performed By: #### L 501.9520, L500.4100, L100.0100, L503.0105, L500.4050, L400.0001, L502.0250 #### [facility] [address] [place], [address] Sodium [Moles/Vol] 138 mmol/L Normal 136-145 [facility] Comment on above: Performed By: #### L 501.9520, L500.4100, L100.0100, L503.0105, L500.4050, L400.0001, L502.0250 #### [facility] [address] [place], [address] T PROT 6.5 g/dL Normal 6.4-8.2 [facility] Comment on above: Performed By: #### L 501.9520, L500.4100, L100.0100, L503.0105, L500.4050, L400.0001, L502.0250 #### [facility] [address] [place], [address] Urea nitrogen [Mass/Vol] 19 mg/dL High 7-18 [facility] Comment on above: Performed By: #### L 501.9520, L500.4100, L100.0100, L503.0105, L500.4050, L400.0001, L502.0250 #### [facility] [address] [place], [address] Lipid Profileon 12-14-2023 Cholesterol [Mass/Vol] 177 mg/dL Normal 200 [facility] Comment on above: Result Comment: <200 mg/dL Desirable 200-240 mg/dL Borderline >240 mg/dL High Risk Performed By: #### L 501.9520, L500.4100, L100.0100, L503.0105, L500.4050, L400.0001, L502.0250 #### [facility] [address] [place], [address] Cholesterol in HDL [Mass/Vol] 51 mg/dL Normal [facility] Comment on above: Result Comment: The drugs N-Acetylcysteine and Metamizole may falsely depress this assay. Reference Range HDL <40 mg/dL Low HDL Cholesterol HDL >or= 60 mg/dL High HDL Cholesterol Performed By: #### L 501.9520, L500.4100, L100.0100, L503.0105, L500.4050, L400.0001, L502.0250 #### [facility] [address] [place], [address] Cholesterol in LDL [Mass/Vol] 110 mg/dL Normal 0-130 [facility] Comment on above: Performed By: #### L 501.9520, L500.4100, L100.0100, L503.0105, L500.4050, L400.0001, L502.0250 #### [facility] [address] [place], [place], [id number] Cholesterol in VLDL [Mass/Vol] 16 mg/dL Normal 5-40 [facility] Comment on above: Performed By: #### L 501.9520, L500.4100, L100.0100, L503.0105, L500.4050, L400.0001, L502.0250 #### [facility] [address] [place], [address] Triglyceride [Mass/Vol] 80 mg/dL Normal [facility] Comment on above: Result Comment: The drugs N-Acetylcysteine and Metamizole may falsely depress this assay. Serum Triglycerides Reference Interval Normal <150 mg/dL Borderline high 150 - 199 mg/dL High 200 - 499 mg/dL Very High > or = 500 mg/dL Performed By: #### L 501.9520, L500.4100, L100.0100, L503.0105, L500.4050, L400.0001, L502.0250 #### [facility] [address] [place], [place], [id number] Microalb:Creat Ratio,Random URon 12-14-2023 Creatinine [Mass/Vol] 76.60 mg/dL Normal NO RANGE EST. [facility] Comment on above: Performed By: #### L 501.9520, L500.4100, L100.0100, L503.0105, L500.4050, L400.0001, L502.0250 ####[facility] [address] [place], [place], [id number] MALB:CRE 10.2 mg/g CRE Normal <30 mg/g CRE [facility] Comment on above: Performed By: #### L 501.9520, L500.4100, L100.0100, L503.0105, L500.4050, L400.0001, L502.0250 ####[facility] [address] [place], [address] MICROALBUMIN,UR 7.8 mg/L Normal NO RANGE EST. [facility] Comment on above: Performed By: #### L 501.9520, L500.4100, L100.0100, L503.0105, L500.4050, L400.0001, L502.0250 ####[facility] [address] [place], [place], [id number] Thyroid Stim Hormone (TSH)on 12-14-2023 TSH 0.95 uIU/mL Normal 0.358-3.74 [facility] Comment on above: Performed By: #### L 501.9520, L500.4100, L100.0100, L503.0105, L500.4050, L400.0001, L502.0250 #### [facility] [address] [place], [address] Urinalysis, Completeon 12-13 EPI,SQUAMOUS 0-5 SEEN Normal 5-10 [facility] Comment on above: Order Comment: CLEAN CATCH Performed By: #### L 501.9520, L500.4100, L100.0100, L503.0105, L500.4050, L400.0001, L502.0250 #### [facility] [address] [place], [place], [id number] (695) RBC 0-5 SEEN Normal 0-5 [facility] Comment on above: Order Comment: CLEAN CATCH Performed By: #### L 501.9520, L500.4100, L100.0100, L503.0105, L500.4050, L400.0001, L502.0250 #### [facility] [address] [place], [address] BACTERIA 0 SEEN Normal None Seen [facility] Comment on above: Order Comment: CLEAN CATCH Performed By: #### L 501.9520, L500.4100, L100.0100, L503.0105, L500.4050, L400.0001, L502.0250 #### [facility] [address] [place], [address] Mucus Ql (Urine sed) 0 SEEN Normal [facility] Comment on above: Order Comment: CLEAN CATCH Performed By: #### L 501.9520, L500.4100, L100.0100, L503.0105, L500.4050, L400.0001, L502.0250 #### [facility] [address] [place], [address] WBC 0 SEEN Normal 0-5 [facility] Comment on above: Order Comment: CLEAN CATCH Performed By: #### L 501.9520, L500.4100, L100.0100, L503.0105, L500.4050, L400.0001, L502.0250 #### [facility] [address] [place], [address] Vitamin B12on 12-14-2023 Cobalamin (Vitamin B12) [Mass/Vol] 428 pg/mL Normal 211-911 [facility] Comment on above: Performed By: #### L 501.9520, L500.4100, L100.0100, L503.0105, L500.4050, L400.0001, L502.0250 #### [facility] [address] [place], [address] Blood Glucose , Office ([phone])Ordered By: Ana Edwards on 02-09-2023 Glucose Glucometer (BldC) [Moles/Vol] 100 1 Normal [facility]; [facility] Work Phone: HgA1C , Office ([phone])Ordere d By: Ana Edwards on 02-09-2023 HbA1c (Bld) [Mass fraction] 6.1 % Normal 4.6 - 7.1 [facility]; [facility] Work Phone: VITAMIN B-12 (CYANOCOBALAMIN ) ([phone])Ordered By: Occupational Medicine Officer on 01-23-2023 Cobalamin (Vitamin B12) [Mass/Vol] 1846 pg/mL Abnormal 232-1245 [facility]; [facility] Work Phone: Absolute lymphocyte countOrd ered By: Dr. Sagastume on 09-18-2022 Lymphocytes Auto (Unsp spec) [#/Vol] 1.29 10*3/uL 0.83-4.51 [facility] Basophil percentageOrdered B y: Dr. Sagastume on 09-18-2022 Basophils/100 WBC (Bld) 1.4 % 0-1 [facility] Bilirubin [Mass/Vol] 0.40 mg/dL 0.20-1.00 [facility] Comment on above: For patients on eltr ombopag therapy, use of Dimension [place] TBIL is not recommended. Chloride [Moles/Vol] 99 mmol/L 98-107 [facility] Cholesterol [Mass/Vol] 186 mg/dL <200 [facility] Comment on above: <200 mg/dL Desirable 200-240 mg/dL Borderline >240 mg/dL High Risk Eosinophils/100 WBC (Bld) 3.5 % 0-5 [facility] Glucose [Mass/Vol] 106 mg/dL 74-106 [facility] Comment on above: Fasting Glucose resu lt from 100 to 125 mg/dL suggests IMPAIRED HOMEOSTASIS per A.D.A. criteria. Neutrophils (Bld) [#/Vol] 3.6 10*3/uL 2.0-7.7 [facility] Neutrophils/100 WBC (Bld) 61.2 % 47-70 [facility] Potassium [Moles/Vol] 3.5 mmol/L 3.5-5.1 [facility] Protein [Mass/Vol] 6.6 g/dL 6.4-8.2 [facility] Sodium [Moles/Vol] 132 mmol/L 136-145 [facility] Triglyceride [Mass/Vol] 54 mg/dL <199 [facility] Comment on above: The drugs N-Acetylcy steine and Metamizole may falsely depress this assay.Serum Triglycerides Reference Interval Normal <150 mg/dL Borderline high 150 - 199 mg/dL High 200 - 499 mg/dL Very High > or = 500 mg/dL WBC (Bld) [#/Vol] 5.9 10*3/uL 4.4-11.0 [facility] Blood erythrocytes count (nu mber/volume)Ordered By: Dr. Sagastume on 09-18-2022 RBC (Bld) [#/Vol] 5.23 10*6/uL 4.2-5.[address] [facility] Blood hemoglobin measurement (mass/volume)Ordered By: Dr. Sagastume on 09-18-2022 Hemoglobin (Bld) [Mass/Vol] 14.8 g/dL 12.0-15.0 [facility] Blood lymphocytes/100 leukoc ytesOrdered By: Dr. Sagastume on 09-18-2022 Lymphocytes/100 WBC (Bld) 21.8 % 19-41 [facility] Blood monocytes/100 leukocyt esOrdered By: Dr. Sagastume on 09-18-2022 Monocytes/100 WBC (Bld) 11.8 % 0-10 [facility] Blood platelet mean volumeOr dered By: Dr. Sagastume on 09-18-2022 Platelet mean volume (Bld) [Entitic vol] 10.8 fL 6.2-12.0 [facility] Determination of erythrocyte mean corpuscular volume (MCV)Ordered By: Dr. Sagastume on 09-18-2022 MCV (RBC) [Entitic vol] 85.1 fL 81-99 [facility] Erythrocyte sedimentation ra teOrdered By: Dr. Sagastume on 09-18-2022 ESR (Bld) [Velocity] 2 mm/h 0-30 [facility] Hematocrit Auto (Bld) [Volum e fraction]Ordered By: Dr. Sagastume on 09-18-2022 Hematocrit (Bld) [Volume fraction] 44.5 % 37-47 [facility] - Chemistry and C hemistry - challengeOrdered By: Dr. Sagastume on 09-18-2022 ALP [Catalytic activity/Vol] 69 U/L 45-117 [facility] ALT [Catalytic activity/Vol] 23 U/L 13-56 [facility] CO2 [Moles/Vol] 32.0 mmol/L 21.0-32.0 [facility] Cobalamin (Vitamin B12) [Mass/Vol] 326 pg/mL 211-911 [facility] Globulin (S) [Mass/Vol] 3.3 g/dL 2.2-4.2 [facility] Urea nitrogen/Creatinine [Mass ratio] 14.6 mg/mg 10-20 [facility] - Hematology and Cell countsOrdered By: Dr. Sagastume on 09-18-2022 Erythrocyte distribution width (RBC) [Entitic vol] 38.4 fL 35.1-43.9 [facility] Erythrocyte distribution width (RBC) [Ratio] 12.5 % 11.6-14.6 [facility] Immature granulocytes/100 WBC (Bld) 0.300 % 0.0-0.9 [facility] Comment on above: IG% - Immature Granu locytes (promyelocytes, myelocytes and metamyelocytes) > 1% indicates that a LEFT SHIFT is Present. MCH (RBC) [Entitic mass] 28.3 pg 27.0-32.0 [facility] Nucleated RBC/100 WBC (Bld) [Ratio] 0 % 0-5 [facility] MCHC Auto (RBC) [Mass/Vol]Or dered By: Dr. Sagastume on 09-18-2022 MCHC (RBC) [Mass/Vol] 33.3 g/dL 32-36 [facility] No Panel InformationOrdered By: Dr. Sagastume on 09-18-2022 Estimated GFR (MDRD) Amer 97 mL/min >60 [facility] Comment on above: GFR Calc Estimated GFR (MDRD) Non-Af Amer 81 mL/min >60 [facility] Comment on above: Non- GFR Calc Thyroid Stimulating Hormone (TSH) 0.57 uIU/mL 0.358-3.74 [facility] Vitamin D 25-Hydroxy 52.2 ng/mL [facility] Comment on above: Vitamin D 25(OH) Sta tus Range Deficiency <20 ng/mL (50nmol/L) Insufficiency 20 - 30 ng/mL (50 - 75 nmol/L) Sufficiency 30 - 100 ng/mL (75 - 250 nmol/L) Toxicity >100 ng/mL (>250 nmol/L) Platelets bldOrdered By: Dr. Sagastume on 09-18-2022 Platelets (Bld) [#/Vol] 346 10*3/uL 150-450 [facility] Serum or plasma C reactive p rotein measurement (mass/volume)Ordered By: Dr. Sagastume on 09-18-2022 CRP [Mass/Vol] mg/L 0.0-3.0 [facility] Comment on above: C-Reactive Protein ( CRP) provides useful information for thediagnosis, therapy and monitoring of inflammatory processesand associated diseases. For the evaluation of Relative Riskfor Cardiovascular Disease, a High Sensitivity CRP (HSCRP)should be ordered. Serum or plasma albumin kaycee urement (mass/volume)Ordered By: Dr. Sagastume on 09-18-2022 Albumin [Mass/Vol] 3.3 g/dL 3.2-5.0 [facility] Serum or plasma albumin/glob ulin mass ratioOrdered By: Dr. Sagastume on 09-18-2022 Albumin/Globulin [Mass ratio] 1.0 {ratio} 0.9-2.4 [facility] Serum or plasma calcium kaycee urement (mass/volume)Ordered By: Dr. Sagastume on 09-18-2022 Calcium [Mass/Vol] 9.1 mg/dL 8.5-10.1 [facility] Serum or plasma cholesterol in HDL measurement (mass/volume)Ordered By: Dr. Sagastume on 09-18-2022 Cholesterol in HDL [Mass/Vol] 54 mg/dL >40 [facility] Comment on above: The drugs N-Acetylcy steine and Metamizole may falsely depress this assay. Reference Range HDL <40 mg/dL Low HDL Cholesterol HDL >or= 60 mg/dL High HDL Cholesterol Serum or plasma cholesterol in VLDL measurement (mass/volume)Ordered By: Dr. Sagastume on 09-18-2022 Cholesterol in VLDL [Mass/Vol] 11 mg/dL 5-40 [facility] Serum or plasma creatinine m easurement (mass/volume)Ordered By: Dr. Sagastume on 09-18-2022 Creatinine [Mass/Vol] 0.75 mg/dL 0.55-1.02 [facility] Comment on above: The validity of the calculated GFR & GFRAA in patients over 70 years has not been determined. Clinical correlation is essential. Serum or plasma low density lipoprotein (LDL) cholesterol measurement (mass/volume)Ordered By: Dr. Sagastume on 09-18-2022 Cholesterol in LDL [Mass/Vol] 121 mg/dL 0-130 [facility] Serum or plasma urea nitroge n measurement (mass/volume)Ordered By: Dr. Sagatsume on 09-18-2022 Urea nitrogen [Mass/Vol] 11 mg/dL 7-18 [facility] Serum rheumatoid factor dete ctionOrdered By: Dr. Sagastume on 09-18-2022 Rheumatoid factor Ql (S) < 10.0 IU/mL <15 [facility] Thin prep Papanicolaou smear with manual screeningOrdered By: Dr. Sagastume on 09-18-2022 Thin prep Papanicolaou smear with manual screening 20 U/L 15-37 [facility] Thin prep Papanicolaou smear with manual screening 1 5-15 [facility] Whole blood hemoglobin A1c/t otal hemoglobin ratio (mass fraction)Ordered By: Dr. Sagastume on 09-18-2022 HbA1c (Bld) [Mass fraction] 5.9 % 3.8-5.6 [facility] Comment on above: Normal < 5.7 % Predi abetic 5.7 - 6.4 % Diabetic >or= 6.5 % Please note range changes. Absolute lymphocyte countOrd ered By: Dr. Montano on 07-21-2022 Lymphocytes Auto (Unsp spec) [#/Vol] 2.08 10*3/uL 0.83-4.51 [facility] Basophil percentageOrdered B y: Dr. Montano on 07-21-2022 Basophil percentage 3.3 mg/dL 2.5-4.[address] [facility] Basophils/100 WBC (Bld) 0.9 % 0-1 [facility] Bilirubin [Mass/Vol] 0.50 mg/dL 0.20-1.00 [facility] Comment on above: For patients on eltr ombopag therapy, use of Dimension [place] TBIL is not recommended. Chloride [Moles/Vol] 104 mmol/L 98-107 [facility] Eosinophils/100 WBC (Bld) 2.0 % 0-5 [facility] Glucose [Mass/Vol] 96 mg/dL 74-106 [facility] Neutrophils (Bld) [#/Vol] 3.6 10*3/uL 2.0-7.7 [facility] Neutrophils/100 WBC (Bld) 52.6 % 47-70 [facility] Potassium [Moles/Vol] 3.9 mmol/L 3.5-5.1 [facility] Protein [Mass/Vol] 6.2 g/dL 6.4-8.2 [facility] Sodium [Moles/Vol] 138 mmol/L 136-145 [facility] WBC (Bld) [#/Vol] 6.9 10*3/uL 4.4-11.0 [facility] Blood erythrocytes count (nu mber/volume)Ordered By: Dr. Montano on 07-21-2022 RBC (Bld) [#/Vol] 5.06 10*6/uL 4.2-5.[address] [facility] Blood hemoglobin measurement (mass/volume)Ordered By: Dr. Montano on 07-21-2022 Hemoglobin (Bld) [Mass/Vol] 14.5 g/dL 12.0-15.0 [facility] Blood lymphocytes/100 leukoc ytesOrdered By: Dr. Montano on 07-21-2022 Lymphocytes/100 WBC (Bld) 30.2 % 19-41 [facility] Blood monocytes/100 leukocyt esOrdered By: Dr. Montano on 07-21-2022 Monocytes/100 WBC (Bld) 13.9 % 0-10 [facility] Blood platelet mean volumeOr dered By: Dr. Montano on 07-21-2022 Platelet mean volume (Bld) [Entitic vol] 10.7 fL 6.2-12.0 [facility] Determination of erythrocyte mean corpuscular volume (MCV)Ordered By: Dr. Montano on 07-21-2022 MCV (RBC) [Entitic vol] 87.7 fL 81-99 [facility] Hematocrit Auto (Bld) [Volum e fraction]Ordered By: Dr. Montano on 07-21-2022 Hematocrit (Bld) [Volume fraction] 44.4 % 37-47 [facility] - Chemistry and C hemistry - challengeOrdered By: Dr. Montano on 07-21-2022 ALP [Catalytic activity/Vol] 65 U/L 45-117 [facility] ALT [Catalytic activity/Vol] 22 U/L 13-56 [facility] CO2 [Moles/Vol] 31.0 mmol/L 21.0-32.0 [facility] Globulin (S) [Mass/Vol] 3.1 g/dL 2.2-4.2 [facility] Magnesium [Mass/Vol] 2.1 mg/dL 1.6-2.6 [facility] Urea nitrogen/Creatinine [Mass ratio] 21.1 mg/mg 10-20 [facility] - Hematology and Cell countsOrdered By: Dr. Montano on 07-21-2022 Erythrocyte distribution width (RBC) [Entitic vol] 42.0 fL 35.1-43.9 [facility] Erythrocyte distribution width (RBC) [Ratio] 13.1 % 11.6-14.6 [facility] Immature granulocytes/100 WBC (Bld) 0.400 % 0.0-0.9 [facility] Comment on above: IG% - Immature Granu locytes (promyelocytes, myelocytes and metamyelocytes) > 1% indicates that a LEFT SHIFT is Present. MCH (RBC) [Entitic mass] 28.7 pg 27.0-32.0 [facility] Nucleated RBC/100 WBC (Bld) [Ratio] 0 % 0-5 [facility] MCHC Auto (RBC) [Mass/Vol]Or dered By: Dr. Montano on 07-21-2022 MCHC (RBC) [Mass/Vol] 32.7 g/dL 32-36 [facility] No Panel InformationOrdered By: Dr. Montano on 07-21-2022 Estimated Creatinine Clearance Calc 48.07 ml/min [facility] Estimated GFR (MDRD) Amer 90 mL/min >60 [facility] Comment on above: GFR Calc Estimated GFR (MDRD) Non-Af Amer 74 mL/min >60 [facility] Comment on above: Non- GFR Calc Thyroid Stimulating Hormone (TSH) 0.41 uIU/mL 0.358-3.74 [facility] Platelets bldOrdered By: Dr. Montano on 07-21-2022 Platelets (Bld) [#/Vol] 303 10*3/uL 150-450 [facility] Serum or plasma albumin kaycee urement (mass/volume)Ordered By: Dr. Montano on 07-21-2022 Albumin [Mass/Vol] 3.1 g/dL 3.2-5.0 [facility] Serum or plasma albumin/glob ulin mass ratioOrdered By: Dr. Montano on 07-21-2022 Albumin/Globulin [Mass ratio] 1.0 {ratio} 0.9-2.4 [facility] Serum or plasma calcium kaycee urement (mass/volume)Ordered By: Dr. Montano on 07-21-2022 Calcium [Mass/Vol] 8.8 mg/dL 8.5-10.1 [facility] Serum or plasma creatinine m easurement (mass/volume)Ordered By: Dr. Montano on 07-21-2022 Creatinine [Mass/Vol] 0.81 mg/dL 0.55-1.02 [facility] Comment on above: The validity of the calculated GFR & GFRAA in patients over 70 years has not been determined. Clinical correlation is essential. Serum or plasma urea nitroge n measurement (mass/volume)Ordered By: Dr. Montano on 07-21-2022 Urea nitrogen [Mass/Vol] 17 mg/dL 7-18 [facility] Thin prep Papanicolaou smear with manual screeningOrdered By: Dr. Montano on 07-21-2022 Thin prep Papanicolaou smear with manual screening 16 U/L 15-37 [facility] Thin prep Papanicolaou smear with manual screening 3 5-15 [facility] Absolute lymphocyte countOrd ered By: Dr. Myles on 07-20-2022 Lymphocytes Auto (Unsp spec) [#/Vol] 1.83 10*3/uL 0.83-4.51 [facility] Basophil percentageOrdered B y: Dr. Myles on 07-20-2022 Basophils/100 WBC (Bld) 0.9 % 0-1 [facility] Chloride [Moles/Vol] 100 mmol/L 98-107 [facility] Eosinophils/100 WBC (Bld) 1.1 % 0-5 [facility] Glucose [Mass/Vol] 131 mg/dL 74-106 [facility] Comment on above: Fasting Glucose resu lt greater than or equal to 126 mg/dL suggests DIABETES MELLITUS per A.D.A. criteria. Neutrophils (Bld) [#/Vol] 5.7 10*3/uL 2.0-7.7 [facility] Neutrophils/100 WBC (Bld) 64.6 % 47-70 [facility] Potassium [Moles/Vol] 3.8 mmol/L 3.5-5.1 [facility] Sodium [Moles/Vol] 135 mmol/L 136-145 [facility] WBC (Bld) [#/Vol] 8.8 10*3/uL 4.4-11.0 [facility] Blood erythrocytes count (nu mber/volume)Ordered By: Dr. Myles on 07-20-2022 RBC (Bld) [#/Vol] 5.43 10*6/uL 4.2-5.[address] [facility] Blood hemoglobin measurement (mass/volume)Ordered By: Dr. Myles on 07-20-2022 Hemoglobin (Bld) [Mass/Vol] 15.6 g/dL 12.0-15.0 [facility] Blood lymphocytes/100 leukoc ytesOrdered By: Dr. Myles on 07-20-2022 Lymphocytes/100 WBC (Bld) 20.8 % 19-41 [facility] Blood monocytes/100 leukocyt esOrdered By: Dr. Myles on 07-20-2022 Monocytes/100 WBC (Bld) 12.3 % 0-10 [facility] Blood platelet mean volumeOr dered By: Dr. Myles on 07-20-2022 Platelet mean volume (Bld) [Entitic vol] 10.6 fL 6.2-12.0 [facility] Determination of erythrocyte mean corpuscular volume (MCV)Ordered By: Dr. Myles on 07-20-2022 MCV (RBC) [Entitic vol] 85.5 fL 81-99 [facility] Hematocrit Auto (Bld) [Volum e fraction]Ordered By: Dr. Myles on 07-20-2022 Hematocrit (Bld) [Volume fraction] 46.4 % 37-47 [facility] - Chemistry and C hemistry - challengeOrdered By: Dr. Myles on 07-20-2022 CO2 [Moles/Vol] 26.0 mmol/L 21.0-32.0 [facility] Magnesium [Mass/Vol] 2.2 mg/dL 1.6-2.6 [facility] Urea nitrogen/Creatinine [Mass ratio] 18.0 mg/mg 10-20 [facility] - Hematology and Cell countsOrdered By: Dr. Myles on 07-20-2022 Erythrocyte distribution width (RBC) [Entitic vol] 39.8 fL 35.1-43.9 [facility] Erythrocyte distribution width (RBC) [Ratio] 12.9 % 11.6-14.6 [facility] Immature granulocytes/100 WBC (Bld) 0.300 % 0.0-0.9 [facility] Comment on above: IG% - Immature Granu locytes (promyelocytes, myelocytes and metamyelocytes) > 1% indicates that a LEFT SHIFT is Present. MCH (RBC) [Entitic mass] 28.7 pg 27.0-32.0 [facility] Nucleated RBC/100 WBC (Bld) [Ratio] 0 % 0-5 [facility] MCHC Auto (RBC) [Mass/Vol]Or dered By: Dr. Myles on 07-20-2022 MCHC (RBC) [Mass/Vol] 33.6 g/dL 32-36 [facility] No Panel InformationOrdered By: Dr. Montano on 07-20-2022 Troponin I High Sensitivity 16 pg/mL 3.0-54.0 [facility] Comment on above: Please Note: [place] t Units and Gender Specific Reference Ranges. For more information see Policy Stat Procedure [place] High Sensitivity Troponin (TNIH) and attachments. No Panel InformationOrdered By: Dr. Myles on 07-20-2022 Estimated Creatinine Clearance Calc 41.42 ml/min [facility] Estimated GFR (MDRD) Amer 75 mL/min >60 [facility] Comment on above: GFR Calc Estimated GFR (MDRD) Non-Af Amer 62 mL/min >60 [facility] Comment on above: Non- GFR Calc Platelets bldOrdered By: Dr. Myles on 07-20-2022 Platelets (Bld) [#/Vol] 366 10*3/uL 150-450 [facility] Serum or plasma calcium kaycee urement (mass/volume)Ordered By: Dr. Myles on 07-20-2022 Calcium [Mass/Vol] 9.3 mg/dL 8.5-10.1 [facility] Serum or plasma creatinine m easurement (mass/volume)Ordered By: Dr. Myles on 07-20-2022 Creatinine [Mass/Vol] 0.94 mg/dL 0.55-1.02 [facility] Comment on above: The validity of the calculated GFR & GFRAA in patients over 70 years has not been determined. Clinical correlation is essential. Serum or plasma urea nitroge n measurement (mass/volume)Ordered By: Dr. Myles on 07-20-2022 Urea nitrogen [Mass/Vol] 17 mg/dL 7-18 [facility] Thin prep Papanicolaou smear with manual screeningOrdered By: Dr. Myles on 07-20-2022 Thin prep Papanicolaou smear with manual screening 9 5-15 [facility] CNOVon 07-11-2022 CNOV Office Visit ([facility]) -- GREGYADY ([id number]) 1950 F Date Time Provider Department 07/11/22 10:20 AM MIKEL ANDRADE During your visit today, we recorded the following information about you: Pulse Blood pressure Weight Height 67/minute 128/73 72.6 kg 1.562 m Mikel Andrade MD 07/20/2022 8:10 PM Addendum PRIMARY CARE PHYSICIAN: Ana Lilia Sagastume DO ([facility]) [address] [facility] [address] [place] [address] REFERRING PHYSICIAN: Leila Burroughs, DOREEN ([facility]) [address] [place] [phone] Patient Care Team: Ana Lilia Sagastume DO as PCP - General Leila Burroughs (Pa) as Physician Senior Scrum Master (Pulmonary and Critical Care Medicine) Jorge Alberto Valle as Specialty Lead Electrical Engineer (Cardiology) CHIEF COMPLAINT: Evaluation for arrhythmia HISTORY OF PRESENT ILLNESS: Ms. Coombs is a 71 year old female who presents today for evaluation of arrhythmia, referred by Dr. Valle of [facility]. Ms. Coombs has atrial fibrillation. She has history of Nmkev-Scogqtxew-Jnyph syndrome (addendum 07/20/2022: review of [facility] records indicates she had SVT, not WPW, underwent successful catheter ablation for SVT in 2002, a concealed right posteroseptal accessory pathway), underwent catheter ablation for this in 2002 at [facility]. She states in about May 2020 she experienced palpitations and tachycardia. She presented to the local ER but by then the arrhythmia had spontaneously terminated before an EKG could be performed. Then in about February 2022 she had recurrence of symptoms lasting about 1.5 hours. Then in April 2022 had an episode and went to the ER and was found to be in atrial fibrillation with rapid ventricular response documented. She was treated with intravenous diltiazem, the arrhythmia then spontaneously converted back to sinus rhythm sometime during overnight observation. She states that she has experienced a couple episodes of palpitations since April 2022, but no prolonged episodes. She is on metoprolol and Eliquis. She had COVID illness in 2020, and states that since then she has continued to have a chronic cough as well as exertional shortness of breath. She denies chest pain, orthopnea, PND, syncope. I have confirmed and edited as necessary, the PFSH and ROS obtained by others. 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, successfully ablated [place] (hard of hearing) Hypothyroidism, unspecified Paroxysmal atrial fibrillation (HCC) PONV (postoperative nausea and vomiting) S/P ablation operation for arrhythmia RF catheter ablation for SVT (concealed right posteroseptal accessory pathway) 2002 Ventral hernia, unspecified, without mention of obstruction or gangrene PAST SURGICAL HISTORY Procedure Laterality Date CATARACT EXTRACTION HX Right 02/2022 CATARACT EXTRACTION HX Left 01/2022 COLONOSCOPY COLONOSCOPY FLX DX W/COLLJ SPEC WHEN PFRMD 11/30/2014 Colonoscopy EPS: SVT ABLATION 08/02/2002 RF catheter ablation of concealed right posteroseptal accessory pathway; [facility] Dr. Hilliard ESOPHAGOGASTRODUODENOSCOPY TRANSORAL DIAGNOSTIC 12/12/2015 EGD IMPLANT MESH OPN HERNIA RPR/DEBRIDEMENT CLOSURE 07/06/2008 LEFT HEART CATH,PERCUTANEOUS 08/28/2020 [facility]; no significant CAD, LVEF 65% LIG/TRNSXJ FLP TUBE ABDL/VAG APPR UNI/BI 1977 Tubal ligation REPAIR FIRST ABDOMINAL WALL HERNIA 07/06/2008 THYROIDECTOMY TOTAL/COMPLETE 1995 left, partial- benign WRIST SURGERY HX Left SOCIAL HISTORY Social History Tobacco Use Smoking status: Never Passive exposure: Past Smokeless tobacco: Never Substance Use Topics Alcohol use: No Drug use: No FAMILY HISTORY Problem Relation Age of Onset Hypertension Mother Psychiatry Mother other (covid-19) Mother Diabetes Mother Heart disease Father other (heavy smoker) Father Heart Attack Father 62 Arthritis Sister Diabetes Sister Heart Failure Brother Diabetes Brother Heart disease Brother Sudden Cardiac Brother in his sleep in his 50s Heart Attack Brother 45 heart attack in his 40s Coronary Artery Disease Brother CABG other (tobacco use) Brother Heart Attack Paternal Grandfather 69 Sudden Cardiac Paternal Grandfather Heart Attack Paternal Uncle other (sudden ) Daughter suddenly, no autopsy other (syncope) Daughter Arrhythmia Daughter Arthritis Daughter A (more content not included)... Normal [facility] MAGNESIUM ([id number])Ordered By: Occupational Medicine Officer on 05-21-2022 Magnesium [Mass/Vol] 1.8 mg/dL Normal 1.6-2.3 [facility]; [facility] Work Phone: POTASSIUM SERUM ([id number])Order ed By: Occupational Medicine Officer on 05-21-2022 Potassium [Moles/Vol] 4.1 mmol/L Normal 3.5-5.2 [facility]; [facility] Work Phone: Basophil percentageOrdered B y: Dr. Sagastume on 05-14-2022 Potassium [Moles/Vol] 3.5 mmol/L 3.5-5.1 [facility] Laboratory - Chemistry and C hemistry - challengeOrdered By: Dr. Sagastume on 05-14-2022 Magnesium [Mass/Vol] 2.1 mg/dL 1.6-2.6 [facility] Whole blood hemoglobin A1c/t otal hemoglobin ratio (mass fraction)Ordered By: Dr. Sagastume on 05-14-2022 HbA1c (Bld) [Mass fraction] 6.2 % 3.8-5.6 [facility] Comment on above: Normal < 5.7 % Predi abetic 5.7 - 6.4 % Diabetic >or= 6.5 % Please note range changes. Absolute lymphocyte countOrd ered By: Dr. Anglin on 05-03-2022 Lymphocytes Auto (Unsp spec) [#/Vol] 1.59 10*3/uL 0.83-4.51 [facility] Absolute lymphocyte counton 05-03-2022 Lymphocytes Auto (Unsp spec) [#/Vol] 2.80 10*3/uL 0.83-4.51 [facility] Work Phone: Basophil percentageOrdered B y: Dr. Anglin on 05-03-2022 Basophils/100 WBC (Bld) 0.6 % 0-1 [facility] Chloride [Moles/Vol] 105 mmol/L 98-107 [facility] Eosinophils/100 WBC (Bld) 1.1 % 0-5 [facility] Glucose [Mass/Vol] 112 mg/dL 74-106 [facility] Comment on above: Fasting Glucose resu lt from 100 to 125 mg/dL suggests IMPAIRED HOMEOSTASIS per A.D.A. criteria. Neutrophils (Bld) [#/Vol] 6.0 10*3/uL 2.0-7.7 [facility] Neutrophils/100 WBC (Bld) 67.6 % 47-70 [facility] Potassium [Moles/Vol] 3.7 mmol/L 3.5-5.1 [facility] Sodium [Moles/Vol] 138 mmol/L 136-145 [facility] WBC (Bld) [#/Vol] 8.9 10*3/uL 4.4-11.0 [facility] Basophil percentageon 2021 Basophils/100 WBC (Bld) 0.6 % 0-1 [facility] Work Phone: Chloride [Moles/Vol] 104 mmol/L 98-107 [facility] Work Phone: Eosinophils/100 WBC (Bld) 2.3 % 0-5 [facility] Work Phone: Glucose [Mass/Vol] 173 mg/dL 74-106 [facility] Work Phone: Comment on above: Fasting Glucose resu lt greater than or equal to 126 mg/dL suggests DIABETES MELLITUS per A.D.A. criteria. Neutrophils (Bld) [#/Vol] 6.0 10*3/uL 2.0-7.7 [facility] Work Phone: Neutrophils/100 WBC (Bld) 59.7 % 47-70 [facility] Work Phone: Potassium [Moles/Vol] 2.7 mmol/L 3.5-5.1 [facility] Work Phone: Comment on above: Critical Result(s) C alled at: 02:12:15 05/03/2022 by: ZULMA GARIBAY to KRISTOPHER SHIN. Results read back by same. Sodium [Moles/Vol] 139 mmol/L 136-145 [facility] Work Phone: WBC (Bld) [#/Vol] 10.1 10*3/uL 4.4-11.[address] [facility] Work Phone: Blood erythrocytes count (nu mber/volume)Ordered By: Dr. Anglin on 05-03-2022 RBC (Bld) [#/Vol] 4.84 10*6/uL 4.2-5.[address] [facility] Blood erythrocytes count (nu mber/volume)on 05-03-2022 RBC (Bld) [#/Vol] 5.18 10*6/uL 4.2-5.[address] [facility] Work Phone: Blood hemoglobin measurement (mass/volume)Ordered By: Dr. Anglin on 05-03-2022 Hemoglobin (Bld) [Mass/Vol] 13.8 g/dL 12.0-15.0 [facility] Blood hemoglobin measurement (mass/volume)on 05-03-2022 Hemoglobin (Bld) [Mass/Vol] 14.6 g/dL 12.0-15.0 [facility] Work Phone: Blood lymphocytes/100 leukoc ytesOrdered By: Dr. Anglin on 05-03-2022 Lymphocytes/100 WBC (Bld) 17.8 % [facility] Blood lymphocytes/100 leukoc yteson 05-03-2022 Lymphocytes/100 WBC (Bld) 27.8 % [facility] Work Phone: Blood monocytes/100 leukocyt esOrdered By: Dr. Anglin on 05-03-2022 Monocytes/100 WBC (Bld) 12.6 % 0 [facility] Blood monocytes/100 leukocyt eson 05-03-2022 Monocytes/100 WBC (Bld) 9.4 % 0 [facility] Work Phone: Blood platelet mean volumeOr dered By: Dr. Anglin on 05-03-2022 Platelet mean volume (Bld) [Entitic vol] 10.6 fL 6.2-12.0 [facility] Blood platelet mean volumeon 05-03-2022 Platelet mean volume (Bld) [Entitic vol] 10.8 fL 6.2-12.0 [facility] Work Phone: Determination of erythrocyte mean corpuscular volume (MCV)Ordered By: Dr. Anglin on 05-03-2022 MCV (RBC) [Entitic vol] 84.9 fL [facility] Determination of erythrocyte mean corpuscular volume (MCV)on 05-03-2022 MCV (RBC) [Entitic vol] 85.9 fL [facility] Work Phone: Hematocrit Auto (Bld) [Volum e fraction]Ordered By: Dr. Anglin on 05-03-2022 Hematocrit (Bld) [Volume fraction] 41.1 % 37 [facility] Hematocrit Auto (Bld) [Volum e fraction]on 05-03-2022 Hematocrit (Bld) [Volume fraction] 44.5 % [facility] Work Phone: Laboratory - Chemistry and C hemistry - challengeOrdered By: Dr. Anglin on 05-03-2022 CO2 [Moles/Vol] 27.0 mmol/L 21.0-32.0 [facility] Urea nitrogen/Creatinine [Mass ratio] 33.0 mg/mg 03-13 [facility] - Chemistry and C hemistry - challengeon 05-03-2022 CO2 [Moles/Vol] 28.0 mmol/L 21.0-32.0 [facility] Work Phone: Urea nitrogen/Creatinine [Mass ratio] 27.0 mg/mg 03-13 [facility] Work Phone: Laboratory - Hematology and Cell countsOrdered By: Dr. Anglin on 05-03-2022 Erythrocyte distribution width (RBC) [Entitic vol] 40.7 fL 35.1-43.9 [facility] Erythrocyte distribution width (RBC) [Ratio] 13.1 % 11.6-14.6 [facility] Immature granulocytes/100 WBC (Bld) 0.300 % 0.0-0.9 [facility] Comment on above: IG% - Immature Granu locytes (promyelocytes, myelocytes and metamyelocytes) > 1% indicates that a LEFT SHIFT is Present. MCH (RBC) [Entitic mass] 28.5 pg 27.0-32.0 [facility] Nucleated RBC/100 WBC (Bld) [Ratio] 0 % 0-5 [facility] Laboratory - Hematology and Cell countson 05-03-2022 Erythrocyte distribution width (RBC) [Entitic vol] 40.8 fL 35.1-43.9 [facility] Work Phone: Erythrocyte distribution width (RBC) [Ratio] 13.0 % 11.6-14.6 [facility] Work Phone: Immature granulocytes/100 WBC (Bld) 0.200 % 0.0-0.9 [facility] Work Phone: Comment on above: IG% - Immature Granu locytes (promyelocytes, myelocytes and metamyelocytes) > 1% indicates that a LEFT SHIFT is Present. MCH (RBC) [Entitic mass] 28.2 pg 27.0-32.0 [facility] Work Phone: Nucleated RBC/100 WBC (Bld) [Ratio] 0 % 0-5 [facility] Work Phone: MCHC Auto (RBC) [Mass/Vol]Or dered By: Dr. Anglin on 05-03-2022 MCHC (RBC) [Mass/Vol] 33.6 g/dL 32-36 [facility] [Mass/Vol]on 05-03-2022 MCHC (RBC) [Mass/Vol] 32.8 g/dL 32-36 [facility] Work Phone: No Panel InformationOrdered By: Dr. Anglin on 05-03-2022 Estimated Creatinine Clearance Calc 40.81 ml/min [facility] Estimated GFR (MDRD) Amer 118 mL/min >60 [facility] Comment on above: GFR Calc Estimated GFR (MDRD) Non-Af Amer 98 mL/min >60 [facility] Comment on above: Non- GFR Calc Thyroid Stimulating Hormone (TSH) 0.49 uIU/mL 0.358-3.74 [facility] No Panel InformationOrdered By: Dr. Cabrales on 05-03-2022 Troponin I High Sensitivity 37 pg/mL 3.0-54.0 [facility] Comment on above: Please Note: [place] t Units and Gender Specific Reference Ranges. For more information see Policy Stat Procedure [place] High Sensitivity Troponin (TNIH) and attachments. No Panel Informationon 05-03 Estimated Creatinine Clearance Calc 45.81 ml/min [facility] Work Phone: Estimated GFR (MDRD) Amer 84 mL/min >60 [facility] Work Phone: Comment on above: GFR Calc Estimated GFR (MDRD) Non-Af Amer 70 mL/min >60 [facility] Work Phone: Comment on above: Non- GFR Calc Troponin I High Sensitivity 17 pg/mL 3.0-54.0 [facility] Work Phone: Comment on above: Please Note: [place] t Units and Gender Specific Reference Ranges. For more information see Policy Stat Procedure [place] High Sensitivity Troponin (TNIH) and attachments. Platelets bldOrdered By: Dr. Anglin on 05-03-2022 Platelets (Bld) [#/Vol] 284 10*3/uL 150-450 [facility] Platelets bldon 05-03-2022 Platelets (Bld) [#/Vol] 313 10*3/uL 150-450 [facility] Work Phone: Serum or plasma calcium kaycee urement (mass/volume)Ordered By: Dr. Anglin on 05-03-2022 Calcium [Mass/Vol] 8.3 mg/dL 8.5-10.1 [facility] Serum or plasma calcium kaycee urement (mass/volume)on 05-03-2022 Calcium [Mass/Vol] 9.1 mg/dL 8.5-10.1 [facility] Work Phone: Serum or plasma creatinine m easurement (mass/volume)Ordered By: Dr. Anglin on 05-03-2022 Creatinine [Mass/Vol] 0.64 mg/dL 0.55-1.02 [facility] Comment on above: The validity of the calculated GFR & GFRAA in patients over 70 years has not been determined. Clinical correlation is essential. Serum or plasma creatinine m easurement (mass/volume)on 05-03-2022 Creatinine [Mass/Vol] 0.85 mg/dL 0.55-1.02 [facility] Work Phone: Comment on above: The validity of the calculated GFR & GFRAA in patients over 70 years has not been determined. Clinical correlation is essential. Serum or plasma urea nitroge n measurement (mass/volume)Ordered By: Dr. Anglin on 05-03-2022 Urea nitrogen [Mass/Vol] 21 mg/dL 12-09 [facility] Serum or plasma urea nitroge n measurement (mass/volume)on 05-03-2022 Urea nitrogen [Mass/Vol] 23 mg/dL 12-09 [facility] Work Phone: Thin prep Papanicolaou smear with manual screeningOrdered By: Dr. Anglin on 05-03-2022 Thin prep Papanicolaou smear with manual screening 6 - [facility] Thin prep Papanicolaou smear with manual screeningon 05-03-2022 Thin prep Papanicolaou smear with manual screening 7 - [facility] Work Phone: MAGNESIUM ([id number])Ordered By: Occupational Medicine Officer on 03-13-2022 Magnesium [Mass/Vol] 2.5 mg/dL Abnormal 1.6-2.3 [facility]; [facility] Work Phone: POTASSIUM SERUM ([id number])Order ed By: Occupational Medicine Officer on 03-13-2022 Potassium [Moles/Vol] 4.0 mmol/L Normal 3.5-5.2 [facility]; [facility] Work Phone: TSH ([id number])Ordered By: [employer] on 03-13-2022 TSH Qn 0.902 {uIU/mL} Normal 0.450-4.50 0 [facility]; [facility] Work Phone: URINALYSIS, W/ MICRO ([id number]) Ordered By: Occupational Medicine Officer on 03-13-2022 Appearance (U) Clear Normal [facility]; [facility] Work Phone: Bilirubin Ql (U) Negative Normal [facility]pre[facility]; [facility] Work Phone: Color (U) Yellow Normal [facility]; [facility] Work Phone: Glucose Ql (U) Negative Normal [facility]; [facility] Work Phone: Hemoglobin Ql (U) Negative Normal [facility]pre[facility]; [facility] Work Phone: Ketones Ql (U) Negative Normal [facility]; [facility] Work Phone: Leukocyte esterase Test strip Ql (U) Negative Normal [facility]; [facility] Work Phone: Microscopic observation LM Nom (Urine sed) MICRON Normal [facility]; [facility] Work Phone: Microscopic observation LM Nom (Urine sed) See below: Normal [facility]; [facility] Work Phone: Nitrite Ql (U) Negative Normal [facility]; [facility] Work Phone: pH (U) 7.0 [pH] Normal 5.0-7.5 [facility]; [facility] Work Phone: Protein Ql (U) Negative Normal [facility]; [facility] Work Phone: Specific gravity (U) [Rel density] 1.011 1 Normal 1.005-1.03 0 [facility]; [facility] Work Phone: Urobilinogen (U) [Mass/Vol] 0.2 mg/dL Normal 0.2-1.0 [facility]; [facility] Work Phone: Absolute lymphocyte counton 03-11-2022 Lymphocytes Auto (Unsp spec) [#/Vol] 2.26 10*3/uL 0.83-4.51 [facility] Work Phone: Basophil percentageon 2021 Basophils/100 WBC (Bld) 0.7 % 0-1 [facility] Work Phone: Bilirubin [Mass/Vol] 0.40 mg/dL 0.20-1.00 [facility] Work Phone: Comment on above: For patients on eltr ombopag therapy, use of Dimension [place] TBIL is not recommended. Chloride [Moles/Vol] 103 mmol/L 98-107 [facility] Work Phone: Eosinophils/100 WBC (Bld) 3.0 % 0-5 [facility] Work Phone: Glucose [Mass/Vol] 139 mg/dL 74-106 [facility] Work Phone: Comment on above: Fasting Glucose resu lt greater than or equal to 126 mg/dL suggests DIABETES MELLITUS per A.D.A. criteria. Neutrophils (Bld) [#/Vol] 5.8 10*3/uL 2.0-7.7 [facility] Work Phone: Neutrophils/100 WBC (Bld) 61.2 % 47-70 [facility] Work Phone: Potassium [Moles/Vol] 3.2 mmol/L 3.5-5.1 [facility] Work Phone: Protein [Mass/Vol] 6.7 g/dL 6.4-8.2 [facility] Work Phone: Sodium [Moles/Vol] 137 mmol/L 136-145 [facility] Work Phone: WBC (Bld) [#/Vol] 9.5 10*3/uL 4.4-11.0 [facility] Work Phone: Blood erythrocytes count (nu mber/volume)on 03-11-2022 RBC (Bld) [#/Vol] 5.01 10*6/uL 4.2-5.[address] [facility] Work Phone: Blood hemoglobin measurement (mass/volume)on 03-11-2022 Hemoglobin (Bld) [Mass/Vol] 14.2 g/dL 12.0-15.0 [facility] Work Phone: Blood lymphocytes/100 leukoc yteson 03-11-2022 Lymphocytes/100 WBC (Bld) 23.8 % 19-41 [facility] Work Phone: Blood monocytes/100 leukocyt eson 03-11-2022 Monocytes/100 WBC (Bld) 11.0 % 0-10 [facility] Work Phone: Blood platelet mean volumeon 03-11-2022 Platelet mean volume (Bld) [Entitic vol] 11.0 fL 6.2-12.0 [facility] Work Phone: Determination of erythrocyte mean corpuscular volume (MCV)on 03-11-2022 MCV (RBC) [Entitic vol] 84.2 fL 81-99 [facility] Work Phone: Hematocrit Auto (Bld) [Volum e fraction]on 03-11-2022 Hematocrit (Bld) [Volume fraction] 42.2 % 37-47 [facility] Work Phone: Laboratory - Chemistry and C hemistry - challengeon 03-11-2022 ALP [Catalytic activity/Vol] 76 U/L 45-117 [facility] Work Phone: ALT [Catalytic activity/Vol] 27 U/L 13-56 [facility] Work Phone: CO2 [Moles/Vol] 25.0 mmol/L 21.0-32.0 [facility] Work Phone: Globulin (S) [Mass/Vol] 3.3 g/dL 2.2-4.2 [facility] Work Phone: Urea nitrogen/Creatinine [Mass ratio] 24.2 mg/mg 10-20 [facility] Work Phone: Laboratory - Hematology and Cell countson 03-11-2022 Erythrocyte distribution width (RBC) [Entitic vol] 40.3 fL 35.1-43.9 [facility] Work Phone: Erythrocyte distribution width (RBC) [Ratio] 13.2 % 11.6-14.6 [facility] Work Phone: Immature granulocytes/100 WBC (Bld) 0.300 % 0.0-0.9 [facility] Work Phone: Comment on above: IG% - Immature Granu locytes (promyelocytes, myelocytes and metamyelocytes) > 1% indicates that a LEFT SHIFT is Present. MCH (RBC) [Entitic mass] 28.3 pg 27.0-32.0 [facility] Work Phone: Nucleated RBC/100 WBC (Bld) [Ratio] 0 % 0-5 [facility] Work Phone: MCHC Auto (RBC) [Mass/Vol]on 03-11-2022 MCHC (RBC) [Mass/Vol] 33.6 g/dL 32-36 [facility] Work Phone: No Panel Informationon 03-11 Estimated Creatinine Clearance Calc 44.85 ml/min [facility] Work Phone: Estimated GFR (MDRD) Amer 78 mL/min >60 [facility] Work Phone: Comment on above: GFR Calc Estimated GFR (MDRD) Non-Af Amer 65 mL/min >60 [facility] Work Phone: Comment on above: Non- GFR Calc Troponin I High Sensitivity 24 pg/mL 3.0-54.0 [facility] Work Phone: Comment on above: Please Note: [place] t Units and Gender Specific Reference Ranges. For more information see Policy Stat Procedure [place] High Sensitivity Troponin (TNIH) and attachments. Platelets bldon 03-11-2022 Platelets (Bld) [#/Vol] 311 10*3/uL 150-450 [facility] Work Phone: Serum or plasma albumin kaycee urement (mass/volume)on 03-11-2022 Albumin [Mass/Vol] 3.4 g/dL 3.2-5.0 [facility] Work Phone: Serum or plasma albumin/glob ulin mass ratioon 03-11-2022 Albumin/Globulin [Mass ratio] 1.0 {ratio} 0.9-2.4 [facility] Work Phone: Serum or plasma calcium kaycee urement (mass/volume)on 03-11-2022 Calcium [Mass/Vol] 9.0 mg/dL 8.5-10.1 [facility] Work Phone: Serum or plasma creatinine m easurement (mass/volume)on 03-11-2022 Creatinine [Mass/Vol] 0.91 mg/dL 0.55-1.02 [facility] Work Phone: Comment on above: The validity of the calculated GFR & GFRAA in patients over 70 years has not been determined. Clinical correlation is essential. Serum or plasma urea nitroge n measurement (mass/volume)on 03-11-2022 Urea nitrogen [Mass/Vol] 22 mg/dL -18 [facility] Work Phone: Thin prep Papanicolaou smear with manual screeningon 03-11-2022 Thin prep Papanicolaou smear with manual screening 21 U/L 15-37 [facility] Work Phone: Thin prep Papanicolaou smear with manual screening 9 5-15 [facility] Work Phone: Basophil percentageon 2021 WBC (Bld) [#/Vol] 8.8 10*3/uL 4.4-11.0 [facility] Work Phone: Blood erythrocytes count (nu mber/volume)on 09-23-2021 RBC (Bld) [#/Vol] 5.19 10*6/uL 4.2-5.[address] [facility] Work Phone: Blood hemoglobin measurement (mass/volume)on 09-23-2021 Hemoglobin (Bld) [Mass/Vol] 14.6 g/dL 12.0-15.0 [facility] Work Phone: Blood platelet mean volumeon 09-23-2021 Platelet mean volume (Bld) [Entitic vol] 10.8 fL 6.2-12.0 [facility] Work Phone: Determination of erythrocyte mean corpuscular volume (MCV)on 09-23-2021 MCV (RBC) [Entitic vol] 85.0 fL 81-99 [facility] Work Phone: Hematocrit Auto (Bld) [Volum e fraction]on 09-23-2021 Hematocrit (Bld) [Volume fraction] 44.1 % 37-47 [facility] Work Phone: Laboratory - Hematology and Cell countson 09-23-2021 Erythrocyte distribution width (RBC) [Entitic vol] 39.4 fL 35.1-43.9 [facility] Work Phone: Erythrocyte distribution width (RBC) [Ratio] 12.7 % 11.6-14.6 [facility] Work Phone: MCH (RBC) [Entitic mass] 28.1 pg 27.0-32.0 [facility] Work Phone: MCHC Auto (RBC) [Mass/Vol]on 09-23-2021 MCHC (RBC) [Mass/Vol] 33.1 g/dL 32-36 [facility] Work Phone: Platelets bldon 09-23-2021 Platelets (Bld) [#/Vol] 286 10*3/uL 150-450 [facility] Work Phone: HEPATITIS C ANTIBODY ([id number]) Ordered By: Occupational Medicine Officer on 05-02-2021 HCV Ab Signal/Cutoff IA [Rel units/Vol] {ratio} Normal 0.0-0.9 [facility]; [facility] Work Phone: T3, FREE (TRIDOTHYRONINE) ([phone])Ordered By: Occupational Medicine Officer on 05-02-2021 Free T3 [Mass/Vol] 3.0 pg/mL Normal 2.0-4.4 [facility]; [facility] Work Phone: T4, FREE (THYROXINE) ([id number]) Ordered By: Occupational Medicine Officer on 05-02-2021 Free T4 [Mass/Vol] 1.76 ng/dL Normal 0.82-1.77 [facility]; [facility] Work Phone: TSH (THYROID STIMULATING HOR BRIAN) ([id number])Ordered By: Occupational Medicine Officer on 05-02-2021 TSH Qn 1.070 {uIU/mL} Normal 0.450-4.50 0 [facility]; [facility] Work Phone: 2018 Novel Coronavirus (COVI D-19), [place]ANO ([id number])Ordered By: Occupational Medicine Officer on [id number] Novel Coronavirus (COVID-19), [place] ([id number]) Detected Abnormal [facility]; [facility] Work Phone: T3, FREE (TRIDOTHYRONINE) ([phone])Ordered By: Occupational Medicine Officer on 07-12-2020 Free T3 [Mass/Vol] 3.3 pg/mL Normal 2.0-4.4 [facility]; [facility] Work Phone: Comment on above: do at end of jun 1; PATIENT NOT FASTINGPERFORMED BY: LabCoPSE[facility] [id number] [facility] [id number] T4, FREE (THYROXINE) ([id number]) Ordered By: Occupational Medicine Officer on 07-12-2020 Free T4 [Mass/Vol] 1.99 ng/dL Abnormal 0.82-1.77 [facility]; [facility] Work Phone: Comment on above: do at end of jun; PATIENT NOT FASTINGPERFORMED BY: MAGGIE [employer]Cot[employer] [id number] [facility] [id number] TSH ([id number])Ordered By: Hotel [employer] on 07-12-2020 TSH Qn 0.575 {uIU/mL} Normal 0.450-4.50 0 [facility]; [facility] Work Phone: Comment on above: PATIENT NOT FASTINGP ERFORMED BY: MAGGIE [employer] EventsCo [id number] [facility] [id number] CALCIFIDIOL ([id number]) VIT D 25 Ordered By: Occupational Medicine Officer on 05-07-2020 25-Hydroxyvitamin D2+25-Hydroxyvitamin D3 [Mass/Vol] 43.9 ng/mL Normal 30.0-100.0 [facility]; [facility] Work Phone: Comment on above: Vitamin D deficiency has been defined by the [place] ofMedicine and an Endocrine Society practice guideline as alevel of serum 25-OH vitamin D less than 20 ng/mL (1,2).The Endocrine Society went on to further define vitamin Dinsufficiency as a level between 21 and 29 ng/mL (2).1. IOM ([place] of Medicine). 2010. Dietary reference intakes for calcium and D. [place]: The National Academies Press.2. Hieu MF, Chang NC, Onesimo ERVIN, et al. Evaluation, treatment, and prevention of vitamin D deficiency: an Endocrine Society clinical practice guideline. JCEM. 2010; 96(7):1911-30. PATIENT NOT FASTINGP ERFORMED BY: MAGGIE [employer] Bjuykz2404 [facility] [id number] TSH ([id number])Ordered By: Traci m Postal Carrier on 05-07-2020 TSH Qn 0.446 {uIU/mL} Abnormal 0.450-4.50 0 [facility]; [facility] Work Phone: Comment on above: ADDENDA: ov 05/10 PATIENT NOT FASTINGP ERFORMED BY: MAGGIE Varnerrp Hbtfok7853 [place] [id number] ANUPAMAOVrogelio 12-06-2019 CNOV Office Visit (UCWSTR ) -- YADY COOMBS ([id number]) 1950 F Date Time Provider Department 12/06/19 11:15 AM LAWRENCE CARBALLO (MAGGIE, YOUSIF)[facility] During your visit today, we recorded the following information about you: Lawrence Carballo APRN.CNP 12/06/2019 11:40 AM Signed Yady Coombs is a 69 year old female who presents with a head injury that occurred about an hour ago while walking her dog who is close to 140 lbs. He pulled the leash to ashvin after a cat which caused her to fall onto the pavement and hit her forehead. She sustained a laceration. Headache present. Broke her glasses, unable to determine if she has had vision changes. Per patient, she walked here and felt safe doing so, but did not want to take the risk of driving. I advised ED evaluation as she will need a CT of her head. Patient states she will go to [facility] ED. Lawrence Carballo APRN.YOUSIF Referring Provider: SELF [200] Allergies As of Date: 12/06/2019 (No Known Allergies) Date Reviewed: 12/18/2016 Reviewed by: Angle Shearer CNP - Fully Assessed Primary Visit Diagnosis:Injury of head, initial encounter [S09.90XA] Prescriptions as of 12/06/2019 Sig: DULOXETINE 30 MG CAPSULE,WAYNE* Take 30 mg by mouth twice yash* TRIAMCINOLONE ACETONIDE 0.1 %* Apply 1 application to affect* CALCIUM 600 WITH VITAMIN D OR* Take by mouth. 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 Author Type: Nurse Practitioner Type: Progress Notes Filed: 12/06/2019 11:40 AM Note Text: Yady Coombs is a 69 year old female who presents with a head injury that occurred about an hour ago while walking her dog who is close to 140 lbs. He pulled the leash to [place] after a cat which caused her to fall onto the pavement and hit her forehead. She sustained a laceration. Headache present. Broke her glasses, unable to determine if she has had vision changes. Per patient, she walked here and felt safe doing so, but did not want to take the risk of driving. I advised ED evaluation as she will need a CT of her head. Patient states she will go to [facility] ED. Lawrence Carballo APRN.YOUSIF Normal [facility] CALCIFEDIOL ([id number])Ordered B y: Occupational Medicine Officer on 11-03-2019 25-Hydroxyvitamin D2+25-Hydroxyvitamin D3 [Mass/Vol] 31.4 ng/mL Normal 30.0-100.0 [facility] Work Phone: Comment on above: Vitamin D deficiency has been defined by the [place] of[place] and an Endocrine Society practice guideline as alevel of serum 25-OH vitamin D less than 20 ng/mL (1,2).The Endocrine Society went on to further define vitamin Dinsufficiency as a level between 21 and 29 ng/mL (2).1. IOM ([place] of [place]). 2010. Dietary reference intakes for calcium and D. [place]: The National Academies Press.2. Hieu MF, Chang LARSEN, Onesimo ERVIN, et al. Evaluation, treatment, and prevention of vitamin D deficiency: an Endocrine Society clinical practice guideline. JCEM. 2010; 96(7):1911-30. Test(s) 796407-YTZ-M ; 836962-CEH-N; 508723-JSW-A; 451541-Irnyzgwbounvs; 992864-Xocqsxbrhez, Total; 956908-BZH-P (Total);137651-Tcfxu LDL-P; 577157-NCD Size; 975401-TS-YE Scorewas developed and its performance characteristics determinedby [employer]. It has not been cleared or approved by the Foodand Drug Administration.PATIENT WAS FASTINGPERFORMED BY: Advanced System Designston[address] [place] [address] [id number] BY: MAGGIE [employer] Mqmyng9571 [facility] [id number] CBC WITH MANUAL DIFF (06262) Ordered By: Occupational Medicine Officer on 11-03-2019 Basophils (Bld) [#/Vol] 0.0 {x10E3/uL} Normal 0.0-0.2 [facility] Work Phone: Comment on above: Test(s) 029567-UDB-R ; 770066-AWW-B; 343636-BQM-E; 157219-Tdvaojielezrm; 698139-Wvyfrndqtnm, Total; 459482-USE-G (Total);853393-Ijyjg LDL-P; 594431-ETR Size; 514891-TY-WZ Scorewas developed and its performance characteristics determinedby [employer]. It has not been cleared or approved by the Foodand Drug Administration.PATIENT WAS FASTINGPERFORMED BY: Advanced [employer] Designston1447 [facility] [id number] BY: Screenz6370 [facility] [id number] Basophils (Bld) [#/Vol] 0.0 10*3/uL Normal 0.0-0.2 [facility]; [facility] Work Phone: Basophils/100 WBC (Bld) 1 % Normal [facility] Work Phone: Comment on above: Test(s) 119186-IKN-I ; 318880-XMB-Y; 571672-LOT-H; 140130-Assbqksqrlgyq; 094173-Laveqvwqamf, Total; 671937-UEI-G (Total);277282-Ksyqt LDL-P; 811189-AYM Size; 121940-EA-YT Scorewas developed and its performance characteristics determinedby [employer]. It has not been cleared or approved by the Foodand Drug Administration.PATIENT WAS FASTINGPERFORMED BY: [employer]s[address] [id number] BY: Screenz6370 [facility] [id number] Eosinophils (Bld) [#/Vol] 0.2 {x10E3/uL} Normal 0.0-0.4 [facility] Internal [facility] Work Phone: Comment on above: Test(s) 636088-ZLH-I ; 496635-FEI-O; 241078-XDI-K; 926583-Ucngivtmlmlhl; 113332-Ebchphzhllt, Total; 314657-VMM-J (Total);947960-Sadbw LDL-P; 525235-SEA Size; 773904-HA-AA Scorewas developed and its performance characteristics determinedby [employer]. It has not been cleared or approved by the Foodand Drug Administration.PATIENT WAS FASTINGPERFORMED BY: Vaurum [address] [id number] BY: Screenz6370 [facility] [id number] Eosinophils (Bld) [#/Vol] 0.2 10*3/uL Normal 0.0-0.4 [facility]; [facility] Work Phone: Eosinophils/100 WBC (Bld) 4 % Normal [facility] Work Phone: Comment on above: Test(s) 506617-GDG-X ; 554481-AQD-R; 864318-PFT-W; 492801-Hinfujuyjvlfg; 091385-Hmsdszbikti, Total; 977920-MDE-R (Total);796412-Lmlgm LDL-P; 838675-BIG Size; 815694-LB-FX Scorewas developed and its performance characteristics determinedby [employer]. It has not been cleared or approved by the Foodand Drug Administration.PATIENT WAS FASTINGPERFORMED BY: [employer]s[address] [id number] BY: Argo Tea70 [facility] [id number] Erythrocyte distribution width (RBC) [Ratio] 12.5 % Normal 11.7-15.4 [facility] Work Phone: Comment on above: Test(s) 200140-TFL-J ; 409069-HGZ-U; 616791-IAW-Z; 584630-Vmbuoeqkgsqgz; 825811-Zlkefohxicd, Total; 286840-BPL-L (Total);640800-Iwjee LDL-P; 128397-VQX Size; 890535-PW-DJ Scorewas developed and its performance characteristics determinedby [employer]. It has not been cleared or approved by the [employer] Drug Administration.PATIENT WAS FASTINGPERFORMED BY: [employer]s[address] [id number] BY: Screenz6370 [facility] [id number] Hematocrit (Bld) [Volume fraction] 41.7 % Normal 34.0-46.6 [facility] Work Phone: Comment on above: Test(s) 674450-LFH-W ; 475358-HSA-D; 704393-GBS-J; 777280-Wlelmxyrtnnay; 218308-Hkngufeyfbe, Total; 188412-JGH-L (Total);391203-Vuqhb LDL-P; 374808-WGC Size; 566732-RM-ET Scorewas developed and its performance characteristics determinedby [employer]. It has not been cleared or approved by the Foodand Drug Administration.PATIENT WAS FASTINGPERFORMED BY: InCorta[address] [id number] BY: InCorta Brhkcu6307 [facility] [id number] Hemoglobin (Bld) [Mass/Vol] 14.2 g/dL Normal 11.1-15.9 [facility] Work Phone: Comment on above: Test(s) 564096-YRJ-K ; 789986-FOJ-R; 844684-FWS-F; 547928-Bnbxvdfmztmtp; 221693-Qwbhppsjugf, Total; 622396-DMT-F (Total);888871-Wmuoz LDL-P; 866884-KFG Size; 351221-ZP-QI Scorewas developed and its performance characteristics determinedby [employer]. It has not been cleared or approved by the Foodand Drug Administration.PATIENT WAS FASTINGPERFORMED BY: Vaurum [address] [id number] BY: [employer]70 [facility] [id number] Immature granulocytes (Bld) [#/Vol] 0.0 {x10E3/uL} Normal 0.0-0.1 [facility] Work Phone: Comment on above: Test(s) 206454-JAK-Q ; 225911-RXT-F; 755382-MRJ-J; 927425-Ahqdygtvmlzda; 201201-Xwwweuytsbr, Total; 970490-VBS-O (Total);879055-Sfxlm LDL-P; 222174-LWC Size; 259668-WM-ZL Scorewas developed and its performance characteristics determinedby [employer]. It has not been cleared or approved by the Foodand Drug Administration.PATIENT WAS FASTINGPERFORMED BY: InCorta[address] [id number] BY: InCorta Jtcjbu7212 [facility] [id number] Immature granulocytes (Bld) [#/Vol] 0.0 10*3/uL Normal 0.0-0.1 [facility]; [facility] Work Phone: Immature granulocytes/100 WBC (Bld) 0 % Normal [facility] Work Phone: Comment on above: Test(s) 114668-FAB-M ; 118642-NBR-L; 798487-DOQ-U; 196662-Ifioimkoiucsv; 517931-Locftzknlxr, Total; 634306-PMO-Q (Total);655632-Oyzil LDL-P; 050516-PWP Size; 329723-LX-IE Scorewas developed and its performance characteristics determinedby [employer]. It has not been cleared or approved by the Foodand Drug Administration.PATIENT WAS FASTINGPERFORMED BY: [employer]s[address] [id number] BY: Argo Tea70 [facility] [id number] Lymphocytes (Bld) [#/Vol] 1.1 {x10E3/uL} Normal 0.7-3.1 [facility] Work Phone: Comment on above: Test(s) 558039-OSB-M ; 665870-WOL-T; 355768-HKD-Z; 308780-Kyoqknqbxercb; 617512-Nbrrowxkovf, Total; 170366-UQS-Q (Total);675632-Khixn LDL-P; 263394-HGJ Size; 936867-VO-BP Scorewas developed and its performance characteristics determinedby [employer]. It has not been cleared or approved by the Foodand Drug Administration.PATIENT WAS FASTINGPERFORMED BY: Vaurum [address] [id number] BY: Argo Tea70 [facility] [id number] Lymphocytes (Bld) [#/Vol] 1.1 10*3/uL Normal 0.7-3.1 [facility]; [facility] Work Phone: Lymphocytes/100 WBC (Bld) 27 % Normal [facility] Work Phone: Comment on above: Test(s) 505280-FEC-A ; 172934-XLT-P; 162184-IJF-E; 952257-Vehicoxylbnjf; 622111-Pbockrburbb, Total; 659848-CQM-W (Total);079335-Vzlhx LDL-P; 258135-QFY Size; 008904-WF-MY Scorewas developed and its performance characteristics determinedby [employer]. It has not been cleared or approved by the Foodand Drug Administration.PATIENT WAS FASTINGPERFORMED BY: Vaurum [address] [id number] BY: Argo Tea70 [facility] [id number] MCH (RBC) [Entitic mass] 28.5 pg Normal 26.6-33.0 [facility] Work Phone: Comment on above: Test(s) 496077-EXS-W ; 727363-XTW-X; 586993-LHD-K; 858184-Njgifwttjcnpr; 036445-Cfbxdptlrez, Total; 301838-HXE-H (Total);602090-Rowrn LDL-P; 970883-GSB Size; 967110-AR-JX Scorewas developed and its performance characteristics determinedby [employer]. It has not been cleared or approved by the Foodand Drug Administration.PATIENT WAS FASTINGPERFORMED BY: [employer] [address] [id number] BY: Argo Tea70 [facility] [id number] MCHC (RBC) [Mass/Vol] 34.1 g/dL Normal 31.5-35.7 [facility] Work Phone: Comment on above: Test(s) 741434-PMG-W ; 669295-EMO-S; 082248-JME-J; 827421-Nslhovgqzqywp; 437087-Iboepcxgpsk, Total; 108835-VEL-Y (Total);482014-Objmj LDL-P; 520500-BYT Size; 513202-GO-CL Scorewas developed and its performance characteristics determinedby [employer]. It has not been cleared or approved by the Foodand Drug Administration.PATIENT WAS FASTINGPERFORMED BY: [employer] [id number] BY: InCorta Vxutkx8450 [facility] [id number] MCV (RBC) [Entitic vol] 84 fL Normal 79-97 [facility] Work Phone: Comment on above: Test(s) 995612-ADF-P ; 137645-WOH-V; 664481-IRH-I; 477940-Qcxauxouqxsmv; 742086-Ogzlondfsgy, Total; 940254-VYH-W (Total);104622-Yplbk LDL-P; 183452-SCX Size; 178186-WB-TD Scorewas developed and its performance characteristics determinedby Excel[employer]. It has not been cleared or approved by the Foodand Drug Administration.PATIENT WAS FASTINGPERFORMED BY: Vaurum [address] [id number] BY: Agolo6370 [facility] [id number] Monocytes (Bld) [#/Vol] 0.5 {x10E3/uL} Normal 0.1-0.9 [facility] Work Phone: Comment on above: Test(s) 322404-CMI-D ; 415424-OSC-I; 370023-CUJ-Y; 518516-Ljpeeuywsecbm; 510944-Oujbrakyzzn, Total; 750019-GDM-P (Total);857175-Azlfm LDL-P; 527276-OJP Size; 013079-RB-VX Scorewas developed and its performance characteristics determinedby [employer]. It has not been cleared or approved by the Foodand Drug Administration.PATIENT WAS FASTINGPERFORMED BY: Vaurum [address] [id number] BY: InCortaPSE&G Children's Specialized HospitalXiuewh2876 [facility] [id number] Monocytes (Bld) [#/Vol] 0.5 10*3/uL Normal 0.1-0.9 [facility]; [facility] Work Phone: Monocytes/100 WBC (Bld) 13 % Normal [facility] Work Phone: Comment on above: Test(s) 128500-JGI-D ; 892407-XPE-R; 218722-RVV-A; 964667-Fhinctugiolbi; 614097-Nvylykkjdgz, Total; 523855-UDK-G (Total);197007-Hrxyb LDL-P; 658329-GGD Size; 887507-JI-IE Scorewas developed and its performance characteristics determinedby Excel[employer]. It has not been cleared or approved by the Foodand Drug Administration.PATIENT WAS FASTINGPERFORMED BY: [employer] [id number] BY: Argo Tea70 [facility] [id number] Neutrophils (Bld) [#/Vol] 2.3 {x10E3/uL} Normal 1.4-7.0 [facility] Work Phone: Comment on above: Test(s) 746383-RUB-Q ; 591612-RYI-O; 763404-LUH-R; 181858-Nmvlvhlxouajj; 710384-Zvbftfytjdt, Total; 318196-RIK-S (Total);035669-Zywkw LDL-P; 584932-ENN Size; 124209-NP-QR Scorewas developed and its performance characteristics determinedby [employer]. It has not been cleared or approved by the Foodand Drug Administration.PATIENT WAS FASTINGPERFORMED BY: Vaurum [address] [id number] BY: Screenz6370 [facility] [id number] Neutrophils (Bld) [#/Vol] 2.3 10*3/uL Normal 1.4-7.0 [facility]; [facility] Work Phone: Neutrophils/100 WBC (Bld) 55 % Normal [facility] Work Phone: Comment on above: Test(s) 471029-BED-D ; 355152-IPR-L; 012901-RDS-T; 463751-Beavetshdbgwa; 733369-Ewqdopooztz, Total; 079025-NZZ-V (Total);292322-Msrvz LDL-P; 384964-TPX Size; 014633-GI-KI Scorewas developed and its performance characteristics determinedby [employer]. It has not been cleared or approved by the Foodand Drug Administration.PATIENT WAS FASTINGPERFORMED BY: Vaurum [address] [id number] BY: Argo Tea70 [facility] [id number] Platelets (Bld) [#/Vol] 278 {x10E3/uL} Normal 150-450 [facility] Work Phone: Comment on above: Test(s) 494067-MMI-I ; 076646-MLP-O; 268182-LCR-X; 963266-Gbvgisgifvbno; 449166-Nmxtvcxzafx, Total; 173024-FOR-E (Total);417624-Grbjw LDL-P; 519292-NVS Size; 141450-VK-DO Scorewas developed and its performance characteristics determinedby [employer]. It has not been cleared or approved by the Foodand Drug Administration.PATIENT WAS FASTINGPERFORMED BY: Vaurum [address] [id number] BY: [employer] Sanydl2572 [facility] [id number] Platelets (Bld) [#/Vol] 278 10*3/uL Normal 150-450 [facility]; [facility] Work Phone: RBC (Bld) [#/Vol] 4.99 {x10E6/uL} Normal 3.77-5.28 [facility] Internal Medicine Work Phone: Comment on above: Test(s) 094533-WZB-Q ; 572184-LHT-U; 630983-BNP-B; 098648-Xejvvcycwubfn; 302169-Nasfllddcgz, Total; 784995-EPL-V (Total);232235-Eovwa LDL-P; 873243-BSG Size; 712470-MD-JN Scorewas developed and its performance characteristics determinedby [employer]. It has not been cleared or approved by the Foodand Drug Administration.PATIENT WAS FASTINGPERFORMED BY: Vaurum [address] [id number] BY: Excelsoft Fukcqn7834 [facility] [id number] RBC (Bld) [#/Vol] 4.99 10*6/uL Normal 3.77-5.28 [facility]; [facility] Work Phone: WBC (Bld) [#/Vol] 4.1 {x10E3/uL} Normal 3.4-10.8 [facility] Work Phone: Comment on above: Test(s) 791931-AKZ-H ; 987728-LNB-Z; 541084-YWG-S; 983680-Xvjlersxqypmo; 148807-Kzkcahewzby, Total; 804234-BZP-Z (Total);560813-Vutet LDL-P; 461756-QQZ Size; 753882-ES-JY Scorewas developed and its performance characteristics determinedby [employer]. It has not been cleared or approved by the Foodand Drug Administration.PATIENT WAS FASTINGPERFORMED BY: Vaurum [address] [id number] BY: [employer] Hbkyrn0619 [facility] [id number] WBC (Bld) [#/Vol] 4.1 10*3/uL Normal 3.4-10.8 [facility]; [facility] Work Phone: MICROALBUMINOrdered By: Syst em Postal Carrier on 11-03-2019 Albumin DL <= 20 mg/L (U) [Mass/Vol] 9.8 ug/mL Normal Comprehens[facility] e Internal [facility] Work Phone: Comment on above: Test(s) 237926-PFR-V ; 824599-STR-O; 863053-JME-F; 649895-Devzswwflaszd; 212738-Xfhyvrnqeyi, Total; 127100-CUA-T (Total);715922-Ktdtw LDL-P; 454553-HGW Size; 049693-EC-MK Scorewas developed and its performance characteristics determinedby [employer]. It has not been cleared or approved by the Foodand Drug Administration.PATIENT WAS FASTINGPERFORMED BY: Vaurum [address] [id number] BY: Argo Tea70 [facility] [id number] Albumin/Creatinine (U) [Mass ratio] 6 {mg/g_creat} Normal 0-29 [facility] Work Phone: Comment on above: Normal: 0 - 29 Moder ately increased: 30 - 300 Severely increased: >300 Please note reference interval change Test(s) 137098-JKB-J ; 324041-NSD-T; 426595-EHN-U; 584519-Ciqnlfvxiaare; 923432-Tfpzvxpyqna, Total; 419871-TER-Z (Total);110442-Azskj LDL-P; 571020-XFL Size; 122625-HT-VX Scorewas developed and its performance characteristics determinedby [employer]. It has not been cleared or approved by the Foodand Drug Administration.PATIENT WAS FASTINGPERFORMED BY: Vaurum [address] [id number] BY: [employer]70 [facility] [id number] Creatinine (U) [Mass/Vol] 166.2 mg/dL Normal [facility] Work Phone: Comment on above: Test(s) 297285-DGI-X ; 967382-BJX-U; 344585-RHE-H; 120470-Mycottjtywrnd; 097853-Jmrmxcphvlq, Total; 934198-SZP-P (Total);506400-Jnwds LDL-P; 046276-MTG Size; 191501-PS-ND Scorewas developed and its performance characteristics determinedby [employer]. It has not been cleared or approved by the Foodand Drug Administration.PATIENT WAS FASTINGPERFORMED BY: Vaurum [address] [id number] BY: [facility]Car[facility] [id number] Metabolic Panel, Comprehensi ve (34784)Ordered By: Occupational Medicine Officer on 11-03-2019 Albumin [Mass/Vol] 4.2 g/dL Normal 3.8-4.8 [facility] Internal Medicine Work Phone: Comment on above: Test(s) 865056-KRV-K ; 041357-DOW-B; 341256-HQU-H; 351678-Lcxabppcfvuqr; 934300-Rdeeqolnxnp, Total; 286642-ZNZ-M (Total);807600-Zcwys LDL-P; 302608-EIX Size; 650064-YM-UZ Scorewas developed and its performance characteristics determinedby [employer]. It has not been cleared or approved by the Foodand Drug Administration.PATIENT WAS FASTINGPERFORMED BY: Vaurum [address] [id number] BY: Screenz6370 [facility] [id number] Albumin/Globulin [Mass ratio] 2.1 {ratio} Normal 1.2-2.2 [facility] Work Phone: Comment on above: Test(s) 044366-VXX-B ; 393548-KIO-E; 799235-RPL-M; 774223-Lcydvgxtqhpjf; 164444-Cwnfrwuccya, Total; 044763-PTF-I (Total);080900-Wqgme LDL-P; 669531-FHL Size; 733022-CL-SC Scorewas developed and its performance characteristics determinedby [employer]. It has not been cleared or approved by the Foodand Drug Administration.PATIENT WAS FASTINGPERFORMED BY: Vaurum [address] [id number] BY: Screenz6370 [facility] [id number] ALP [Catalytic activity/Vol] 84 [iU]/L Normal 39-117 [facility] Work Phone: Comment on above: Test(s) 502407-SSL-U ; 988291-WSK-M; 291775-WZM-C; 039941-Ggmammchxanqe; 766670-Ksfqgokiuph, Total; 232978-YPE-F (Total);702738-Oraiq LDL-P; 655900-DMX Size; 848858-VV-GJ Scorewas developed and its performance characteristics determinedby [employer]. It has not been cleared or approved by the Foodand Drug Administration.PATIENT WAS FASTINGPERFORMED BY: InCorta[address] [id number] BY: InCortaMimbres Memorial HospitalIjgagf5493 [facility] [id number] ALP [Catalytic activity/Vol] 84 U/L Normal 39-117 [facility]; [facility] Work Phone: ALT [Catalytic activity/Vol] 15 [iU]/L Normal 0-32 [facility] Work Phone: Comment on above: Test(s) 623293-OJQ-S ; 756742-MOV-B; 223027-LKD-A; 421120-Mxgtqjjlkagml; 027602-Hhqzenlspnf, Total; 551295-JLT-D (Total);335026-Xrzuf LDL-P; 042629-NFY Size; 358786-ZE-WQ Scorewas developed and its performance characteristics determinedby [employer]. It has not been cleared or approved by the Foodand Drug Administration.PATIENT WAS FASTINGPERFORMED BY: InCorta[address] [id number] BY: InCortaPSE&G Children's Specialized HospitalCqquov6985 [facility] [id number] ALT [Catalytic activity/Vol] 15 U/L Normal 0-32 [facility]; [facility] Work Phone: AST [Catalytic activity/Vol] 15 [iU]/L Normal 0-40 [facility] Work Phone: Comment on above: Test(s) 588866-JZF-X ; 234742-FDB-W; 331208-NKB-X; 004638-Bmoolvznjemxj; 839644-Poyjsrihnab, Total; 121961-OGL-X (Total);846530-Mwebm LDL-P; 908625-NCJ Size; 781755-SH-MI Scorewas developed and its performance characteristics determinedby [employer]. It has not been cleared or approved by the Foodand Drug Administration.PATIENT WAS FASTINGPERFORMED BY: Vaurum [address] [id number] BY: InCortaPSE&G Children's Specialized HospitalCrlhru5006 [facility] [id number] AST [Catalytic activity/Vol] 15 U/L Normal 0-40 [facility]; [facility] Work Phone: Bilirubin [Mass/Vol] 0.4 mg/dL Normal 0.0-1.2 [facility] Work Phone: Comment on above: Test(s) 722623-CXT-M ; 943485-CYE-K; 486668-FBP-O; 879812-Qkzmtfjoetpyv; 807568-Qraxbvfwvjh, Total; 111376-RMN-X (Total);923054-Zgfcj LDL-P; 252081-JOE Size; 147149-NM-UH Scorewas developed and its performance characteristics determinedby [employer]. It has not been cleared or approved by the Foodand Drug Administration.PATIENT WAS FASTINGPERFORMED BY: Vaurum [address] [id number] BY: Agolo6370 [facility] [id number] Calcium [Mass/Vol] 9.5 mg/dL Normal 8.7-10.3 [facility] Internal Medicine Work Phone: Comment on above: Test(s) 371441-XYA-C ; 348114-CAD-V; 498233-IIQ-G; 458267-Uvgnrbqqedptg; 149789-Mbxzligolce, Total; 017988-DLP-C (Total);105344-Kmwlm LDL-P; 885354-DQN Size; 466643-UR-HR Scorewas developed and its performance characteristics determinedby [employer]. It has not been cleared or approved by the Foodand Drug Administration.PATIENT WAS FASTINGPERFORMED BY: Vaurum [address] [id number] BY: Screenz6370 [place] [facility]Car[facility] [id number] Chloride [Moles/Vol] 101 mmol/L Normal 96-106 [facility] Internal Medicine Work Phone: Comment on above: Test(s) 926094-HCG-R ; 633379-IYH-M; 048653-QAS-H; 678128-Huuyviahkvkgh; 175051-Ogwzordkfom, Total; 772673-ZYO-W (Total);283538-Zdpyw LDL-P; 826278-BOE Size; 841059-MM-IL Scorewas developed and its performance characteristics determinedby [employer]. It has not been cleared or approved by the Foodand Drug Administration.PATIENT WAS FASTINGPERFORMED BY: [employer] [id number] BY: Screenz6370 [facility] [id number] CO2 [Moles/Vol] 29 mmol/L Normal 20-29 [facility] Work Phone: Comment on above: Test(s) 590556-EVF-Q ; 981222-QOI-W; 259324-OUX-L; 435646-Fcjxsjsdtfgae; 919467-Tuyqhnrcaey, Total; 299070-EZG-O (Total);286258-Stqwg LDL-P; 933620-RGI Size; 550547-WS-HU Scorewas developed and its performance characteristics determinedby [employer]. It has not been cleared or approved by the Foodand Drug Administration.PATIENT WAS FASTINGPERFORMED BY: [employer] [id number] BY: Screenz6370 [facility] [id number] Creatinine [Mass/Vol] 0.74 mg/dL Normal 0.57-1.00 [facility] Internal Medicine Work Phone: Comment on above: Test(s) 531811-LKL-D ; 987977-OVN-J; 075483-ZSH-I; 418702-Rckqnkscstiax; 342302-Piyskxdeino, Total; 133566-OEM-Q (Total);019477-Ggiir LDL-P; 935399-XMQ Size; 807210-OA-VY Scorewas developed and its performance characteristics determinedby [employer]. It has not been cleared or approved by the Foodand Drug Administration.PATIENT WAS FASTINGPERFORMED BY: Vaurum [address] [id number] BY: InCortaZachary Ville 8116070 [facility] [id number] GFR/1.73 sq M predicted among blacks CKD-EPI (S/P/Bld) [Vol rate/Area] 96 mL/min/1.73 Normal [facility] Work Phone: Comment on above: Test(s) 336449-AQA-C ; 874136-FKJ-E; 710190-DGD-X; 067393-Dbjosgzjcvpbp; 923273-Ugjkxargmxz, Total; 069848-AJA-Y (Total);922866-Qlwdx LDL-P; 438004-JVH Size; 444051-TW-QI Scorewas developed and its performance characteristics determinedby [employer]. It has not been cleared or approved by the Foodand Drug Administration.PATIENT WAS FASTINGPERFORMED BY: Vaurum [address] [id number] BY: [employer] Ecnulr1162 [facility] [id number] GFR/1.73 sq M predicted among non-blacks CKD-EPI (S/P/Bld) [Vol rate/Area] 84 mL/min/1.73 Normal [facility] Work Phone: Comment on above: Test(s) 904941-OGU-B ; 441732-UHD-M; 557713-IEQ-N; 777262-Edsxaucrimrjw; 447156-Duzrdvamupy, Total; 966470-KEX-T (Total);521062-Aaamp LDL-P; 736344-QPQ Size; 809437-HH-EZ Scorewas developed and its performance characteristics determinedby [employer]. It has not been cleared or approved by the Foodand Drug Administration.PATIENT WAS FASTINGPERFORMED BY: Vaurum [address] [id number] BY: Agolo6370 [facility] [id number] Globulin (S) [Mass/Vol] 2.0 g/dL Normal 1.5-4.5 [facility] Internal Medicine Work Phone: Comment on above: Test(s) 833865-RSB-O ; 331874-EIH-S; 951295-TDK-V; 801752-Sbacmjakzsrix; 277845-Hizeipnsrgs, Total; 658038-CEF-Q (Total);874041-Bfhxl LDL-P; 508735-WAP Size; 107214-PZ-CE Scorewas developed and its performance characteristics determinedby [employer]. It has not been cleared or approved by the Foodand Drug Administration.PATIENT WAS FASTINGPERFORMED BY: Vaurum [address] [id number] BY: Screenz6370 [facility] [id number] Glucose [Mass/Vol] 98 mg/dL Normal 65-99 [facility] Internal [facility] Work Phone: Comment on above: Test(s) 264424-EHY-Q ; 698900-RMD-S; 722504-UYY-X; 618348-Ssxvrgueekbrf; 168168-Mzmhcgqhbwg, Total; 720548-NOR-W (Total);137723-Pwrbh LDL-P; 935913-YUY Size; 610000-DN-XQ Scorewas developed and its performance characteristics determinedby [employer]. It has not been cleared or approved by the Foodand Drug Administration.PATIENT WAS FASTINGPERFORMED BY: Vaurum [address] [id number] BY: Screenz6370 [facility] [id number] Potassium [Moles/Vol] 3.9 mmol/L Normal 3.5-5.2 [facility] Internal [facility] Work Phone: Comment on above: Test(s) 859076-QMR-H ; 427585-ZAW-S; 578708-UCV-I; 755766-Qzqqmvsrohgsm; 161454-Asqmfenwfct, Total; 658329-WFY-E (Total);981402-Vilex LDL-P; 281625-FME Size; 576042-VQ-BH Scorewas developed and its performance characteristics determinedby [employer]. It has not been cleared or approved by the Foodand Drug Administration.PATIENT WAS FASTINGPERFORMED BY: Vaurum [address] [id number] BY: Argo Tea70 [facility] [id number] Protein [Mass/Vol] 6.2 g/dL Normal 6.0-8.5 [facility] Work Phone: Comment on above: Test(s) 136501-MHH-Y ; 601251-FUQ-Q; 080293-TDV-V; 821666-Qjmxacrocjqzb; 256781-Xfwwmljcgoi, Total; 548638-MTK-C (Total);603442-Zvhmz LDL-P; 843856-TOF Size; 814683-MO-UO Scorewas developed and its performance characteristics determinedby [employer]. It has not been cleared or approved by the Foodand Drug Administration.PATIENT WAS FASTINGPERFORMED BY: Vaurum [address] [id number] BY: Screenz6370 [facility] [id number] Sodium [Moles/Vol] 142 mmol/L Normal 134-144 [facility] Work Phone: Comment on above: Test(s) 463778-CYX-A ; 403856-KLX-W; 771914-ZWI-G; 914532-Ksuwturhtjuia; 698178-Bgrohygkeiw, Total; 496715-QTB-M (Total);011512-Evntl LDL-P; 447842-CUM Size; 975239-KH-TU Scorewas developed and its performance characteristics determinedby [employer]. It has not been cleared or approved by the Foodand Drug Administration.PATIENT WAS FASTINGPERFORMED BY: Vaurum [address] [id number] BY: Argo Tea70 [facility] [id number] Urea nitrogen [Mass/Vol] 13 mg/dL Normal 8-27 [facility] Work Phone: Comment on above: Test(s) 544133-UXQ-Q ; 019444-MMK-Y; 546959-RLV-R; 191112-Sswgqdwztlhxh; 074564-Dfuacebjdnb, Total; 217179-SNV-T (Total);053016-Dwnvd LDL-P; 048132-LYV Size; 871605-GS-MW Scorewas developed and its performance characteristics determinedby [employer]. It has not been cleared or approved by the Foodand Drug Administration.PATIENT WAS FASTINGPERFORMED BY: [employer] [id number] BY: Screenz6370 [facility] [id number] Urea nitrogen/Creatinine [Mass ratio] 18 mg/mg Normal 12- [facility] Work Phone: Comment on above: Test(s) 987916-OVK-S ; 010131-QCT-R; 230167-WND-N; 292481-Whricxsxjlszp; 510447-Rjwtlflbxoa, Total; 658872-IWV-L (Total);944569-Gykoe LDL-P; 858719-ESI Size; 147256-YT-NZ Scorewas developed and its performance characteristics determinedby [employer]. It has not been cleared or approved by the Foodand Drug Administration.PATIENT WAS FASTINGPERFORMED BY: Vaurum [address] [id number] BY: [employer] Fwyhon5958 [facility] [id number] NMR Profile (13783)Ordered B y: Occupational Medicine Officer on 11-03-2019 Cholesterol [Mass/Vol] 184 mg/dL Normal 100-199 [facility] Work Phone: Comment on above: Test(s) 979778-BUK-C ; 738251-HWY-Y; 505555-MPB-Y; 821935-Zapubnzudidrk; 354651-Piukjnwgqdh, Total; 381760-AZY-H (Total);753886-Duwjr LDL-P; 188221-DFL Size; 333079-EO-TD Scorewas developed and its performance characteristics determinedby [employer]. It has not been cleared or approved by the Foodand Drug Administration.PATIENT WAS FASTINGPERFORMED BY: Vaurum [address] [id number] BY: Argo Tea70 [address] RafterAt[facility] Health Cleveland [id number] Lipoprotein.alpha [Moles/Vol] 31.1 umol/L Normal [facility] Work Phone: Comment on above: Test(s) 658024-ZPQ-Q ; 021497-CGR-P; 317126-EZW-X; 881837-Vncedtfnijkeg; 288906-Cxfevkcwxfy, Total; 572589-PNS-B (Total);556162-Jcahh LDL-P; 770464-TYA Size; 570201-FP-ZZ Scorewas developed and its performance characteristics determinedby [employer]. It has not been cleared or approved by the [employer] Drug Administration.PATIENT WAS FASTINGPERFORMED BY: Vaurum [address] [id number] BY: Argo Tea70 [address] [facility]ilzCaroMont [facility] [id number] Lipoprotein.beta.sub particle [Entitic length] 20.9 nm Normal [facility] Work Phone: Comment on above: INTERPRETATIVE INFORMATION PARTICLE CONCENTRATION AND SIZE <--Lower CVD Risk Higher CVD Risk--> LDL AND HDL PARTICLES Percentile in Reference Population HDL-P (total) High 75th 50th 25th Low >34.9 34.9 30.5 26.7 <26.7 . Small LDL-P Low 25th 50th 75th High <117 117 527 839 >839 . LDL Size <-Large (Pattern A)-> <-Small (Pattern B)-> 23.0 20.6 20.5 19.0 Small LDL-P and LDL Size are associated with CVD risk, but not afterLDL-P is taken into account. Test(s) 812862-VFE-C ; 136066-PDF-D; 063467-SFK-K; 837950-Bkcekdwlkmxec; 273903-Prefdyemfxf, Total; 514494-OFO-B (Total);626314-Tvuep LDL-P; 350329-ZLK Size; 061015-CJ-VE Scorewas developed and its performance characteristics determinedby [employer]. It has not been cleared or approved by the Foodand Drug Administration.PATIENT WAS FASTINGPERFORMED BY: [employer] [facility] [id number] BY: [employer] Netz[facility]kePer[facility] [id number] Lipoprotein.beta.sub particle [Moles/Vol] 1383 nmol/L Abnormal [facility] Work Phone: Comment on above: Low < 1000 Moderate 1000 - 1299 Borderline-High 1300 - 1599 High 1600 - 2000 Very High > 2000 Test(s) 980965-SXD-S ; 944524-CJR-D; 043759-CNV-O; 070270-Osvwwmiasqemk; 288227-Gisbkobzajr, Total; 468079-CPW-J (Total);222502-Eprik LDL-P; 736501-KPU Size; 857787-UX-YN Scorewas developed and its performance characteristics determinedby [employer]. It has not been cleared or approved by the Foodand Drug Administration.PATIENT WAS FASTINGPERFORMED BY: Advanced System Designston1447 [facility] [id number] BY: VZnet NetzwerkePer[facility] Hospital [id number] Lipoprotein.beta.sub particle.small [Moles/Vol] 511 nmol/L Normal [facility] Internal Medicine Work Phone: Comment on above: Test(s) 104019-XJO-E ; 661624-VIT-N; 125043-EUT-U; 377291-Wkquhvfetjhcz; 029137-Vgcjocoyfkk, Total; 248431-PXS-I (Total);998576-Hecro LDL-P; 843779-RJD Size; 981554-QP-RT Scorewas developed and its performance characteristics determinedby [employer]. It has not been cleared or approved by the Foodand Drug Administration.PATIENT WAS FASTINGPERFORMED BY: Vaurum [address] [id number] BY: Argo Tea70 [facility] [id number] Triglyceride [Mass/Vol] 53 mg/dL Normal 0-149 [facility] Internal [facility] Work Phone: Comment on above: Test(s) 391698-DJR-P ; 170505-PSU-O; 186887-IGG-H; 580910-Atharivnazhya; 020047-Fowaemcxecj, Total; 666077-ZNE-N (Total);083119-Taywr LDL-P; 030209-DIS Size; 999242-RP-AK Scorewas developed and its performance characteristics determinedby [employer]. It has not been cleared or approved by the Foodand Drug Administration.PATIENT WAS FASTINGPERFORMED BY: Vaurum [address] [id number] BY: Screenz6370 [facility] [id number] NMR Profile (76639) 115 mg/dL Abnormal 0-99 [facility] Internal Medicine Work Phone: Comment on above: . Optimal < 100 Abov e optimal 100 - 129 Borderline 130 - 159 High 160 - 189 Very high > 189 .LDL-C is inaccurate if patient is non-fasting. Test(s) 726654-HAH-N ; 164413-UMN-Y; 258736-MBV-G; 562030-Dxlkemsojlsja; 973432-Yfqlqlaffke, Total; 788849-DXO-S (Total);699359-Eucat LDL-P; 278038-FII Size; 484002-JA-TL Scorewas developed and its performance characteristics determinedby InC[employer]. It has not been cleared or approved by the Foodand Drug Administration.PATIENT WAS FASTINGPERFORMED BY: InCorta[address] [id number] BY: InCortaPSE&G Children's Specialized HospitalEukovp5259 [facility] [id number] NMR Profile (29753) 58 mg/dL Normal [facility] Internal Medicine Work Phone: Comment on above: Test(s) 128237-WRA-O ; 914018-QUN-P; 925209-RPF-W; 363180-Mjbuunfciqqbo; 433749-Nknricrkknl, Total; 832463-IVH-N (Total);171553-Klndj LDL-P; 752336-WFB Size; 012568-UT-XP Scorewas developed and its performance characteristics determinedby [employer]. It has not been cleared or approved by the Foodand Drug Administration.PATIENT WAS FASTINGPERFORMED BY: [employer] [address] [id number] BY: InCortaPSE&G Children's Specialized HospitalMrksol5076 [facility] [id number] NMR Profile (73182) 53 mg/dL Normal 0-149 [facility] Internal [facility]; [facility] Work Phone: NMR Profile (34434) 184 mg/dL Normal 100-199 [facility] Internal [facility]; [facility] Internal [facility] Work Phone: T3, FREE (TRIDOTHYRONINE) (2 3030)Ordered By: Occupational Medicine Officer on 11-03-2019 Free T3 [Mass/Vol] 3.0 pg/mL Normal 2.0-4.4 [facility] Internal [facility] Work Phone: Comment on above: Test(s) 629996-VUE-K ; 433957-IXW-A; 114547-NHU-O; 904992-Sztmdjjpbewpd; 921183-Qihnxkluywk, Total; 275333-ZQS-G (Total);257743-Uuvbm LDL-P; 828804-DIZ Size; 554083-NO-SZ Scorewas developed and its performance characteristics determinedby [employer]. It has not been cleared or approved by the Foodand Drug Administration.PATIENT WAS FASTINGPERFORMED BY: Vaurum [address] [id number] BY: InCortaPSE&G Children's Specialized HospitalQkynys5902 [facility] [id number] T4, FREE (THYROXINE) (03591) Ordered By: Occupational Medicine Officer on 11-03-2019 Free T4 [Mass/Vol] 1.74 ng/dL Normal 0.82-1.77 [facility] Internal [facility] Work Phone: Comment on above: Test(s) 696881-XOE-J ; 691753-HQG-R; 993772-VQH-T; 545680-Sojzlnflwihtu; 455895-Eoagcdqaimh, Total; 594556-IAS-V (Total);249049-Gmgtj LDL-P; 722944-RIS Size; 527588-SD-JT Scorewas developed and its performance characteristics determinedby [employer]. It has not been cleared or approved by the Foodand Drug Administration.PATIENT WAS FASTINGPERFORMED BY: Vaurum [address] [id number] BY: [employer] Yyomsy5963 [facility] [id number] TSH (59906)Ordered By: [employer] Postal Carrier on 11-03-2019 TSH Qn 0.152 {uIU/mL} Abnormal 0.450-4.50 0 [facility] Internal [facility] Work Phone: Comment on above: Test(s) 228502-AXT-Q ; 013279-WTR-K; 072190-EME-N; 548776-Mvxeejknddvxt; 067108-Ivbprkqsnlg, Total; 016029-ROG-Y (Total);767242-Zyfml LDL-P; 963282-JKH Size; 032018-AD-AL Scorewas developed and its performance characteristics determinedby [employer]. It has not been cleared or approved by the Foodand Drug Administration.PATIENT WAS FASTINGPERFORMED BY: Vaurum [address] [id number] BY: Screenz6370 [facility] [id number] CALCIFEDIOL (55193)Ordered B y: Occupational Medicine Officer on 12-30-2018 25-Hydroxyvitamin D2+25-Hydroxyvitamin D3 [Mass/Vol] 28.3 ng/mL Abnormal 30.0-100.0 [facility] Work Phone: Comment on above: Vitamin D deficiency has been defined by the [place] ofMedicine and an Endocrine Society practice guideline as alevel of serum 25-OH vitamin D less than 20 ng/mL (1,2).The Endocrine Society went on to further define vitamin Dinsufficiency as a level between 21 and 29 ng/mL (2).1. IOM ([place] of Medicine). 2010. Dietary reference intakes for calcium and D. [place]: The National Academies Press.2. Hieu MF, Chang LARSEN, Onesimo ERVIN, et al. Evaluation, treatment, and prevention of vitamin D deficiency: an Endocrine Society clinical practice guideline. JCEM. 2010; 96(7):1911-30. PATIENT WAS FASTINGP ERFORMED BY: [employer]s[address] [id number] BY: Screenz6370 [facility] [id number] CBC WITH MANUAL DIFF (45767) Ordered By: Occupational Medicine Officer on 12-30-2018 Basophils (Bld) [#/Vol] 0.0 {x10E3/uL} Normal 0.0-0.2 [facility] Work Phone: Comment on above: PATIENT WAS FASTINGP ERFORMED BY: Vaurum [address] [id number] BY: NanoSteellin6370 [facility] [id number] Basophils (Bld) [#/Vol] 0.0 10*3/uL Normal 0.0-0.2 [facility]; [facility] Work Phone: Basophils/100 WBC (Bld) 1 % Normal [facility] Work Phone: Comment on above: PATIENT WAS FASTINGP ERFORMED BY: [address] [id number] BY: LabStraith Hospital [facility] Surgery6[address] Beltr[address] RoadEcu Health Roanoke-Chowan Hospitalin [place] [id number] Eosinophils (Bld) [#/Vol] 0.3 {x10E3/uL} Normal 0.0-0.4 [facility] Work Phone: Comment on above: PATIENT WAS FASTINGP ERFORMED BY: [address] [id number] BY: [place] 0629770 Beltr[facility] RoadCaroMont Regional Medical Center [id number] Eosinophils (Bld) [#/Vol] 0.3 10*3/uL Normal 0.0-0.4 [facility]; [facility] Work Phone: Eosinophils/100 WBC (Bld) 5 % Normal [facility] Work Phone: Comment on above: PATIENT WAS FASTINGP ERFORMED BY: [address] [id number] BY: [place] 0629770 [facility] [id number] Erythrocyte distribution width (RBC) [Ratio] 12.9 % Normal 12.3-15.4 [facility] Work Phone: Comment on above: PATIENT WAS FASTINGP ERFORMED BY: [address] [id number] BY: [place] 0629770 [facility] [id number] Hematocrit (Bld) [Volume fraction] 41.9 % Normal 34.0-46.6 [facility] Work Phone: Comment on above: PATIENT WAS FASTINGP ERFORMED BY: [address] [id number] BY: LabCarondelet Health Jljuqv8550 [facility] [id number] Hemoglobin (Bld) [Mass/Vol] 14.3 g/dL Normal 11.1-15.9 [facility] Work Phone: Comment on above: PATIENT WAS FASTINGP ERFORMED BY: [address] [id number] BY: LabStraith [facility] Surgery6370 [facility] [id number] Immature granulocytes (Bld) [#/Vol] 0.0 {x10E3/uL} Normal 0.0-0.1 [facility] Work Phone: Comment on above: PATIENT WAS FASTINGP ERFORMED BY: [address] [id number] BY: MAGGIE LabCarondelet Health Xtfbec3885 [facility] [id number] Immature granulocytes (Bld) [#/Vol] 0.0 10*3/uL Normal 0.0-0.1 [facility]; [facility] Work Phone: Immature granulocytes/100 WBC (Bld) 0 % Normal [facility] Work Phone: Comment on above: PATIENT WAS FASTINGP ERFORMED BY: [address] [id number] BY: LabNicholas Ville [id number] [facility] [id number] Lymphocytes (Bld) [#/Vol] 1.4 {x10E3/uL} Normal 0.7-3.1 [facility] Work Phone: Comment on above: PATIENT WAS FASTINGP ERFORMED BY: [address] [id number] BY: [facility]6370 [facility] [id number] Lymphocytes (Bld) [#/Vol] 1.4 10*3/uL Normal 0.7-3.1 [facility]; [facility] Work Phone: Lymphocytes/100 WBC (Bld) 25 % Normal [facility] Work Phone: Comment on above: PATIENT WAS FASTINGP ERFORMED BY: [address] [id number] BY: [facility]6370 [facility] [id number] MCH (RBC) [Entitic mass] 28.1 pg Normal 26.6-33.0 [facility] Work Phone: Comment on above: PATIENT WAS FASTINGP ERFORMED BY: [address] [id number] BY: [place] 0629770 [facility] [id number] MCHC (RBC) [Mass/Vol] 34.1 g/dL Normal 31.5-35.7 [facility] Work Phone: Comment on above: PATIENT WAS FASTINGP ERFORMED BY: [address] [id number] BY: [place] 0629770 [facility] [id number] MCV (RBC) [Entitic vol] 82 fL Normal 79-97 [facility] Work Phone: Comment on above: PATIENT WAS FASTINGP ERFORMED BY: [address] [id number] BY: [place] 0629770 [facility] [id number] Monocytes (Bld) [#/Vol] 0.5 {x10E3/uL} Normal 0.1-0.9 [facility] Work Phone: Comment on above: PATIENT WAS FASTINGP ERFORMED BY: [address] [id number] BY: [place] 0629770 [facility] [id number] Monocytes (Bld) [#/Vol] 0.5 10*3/uL Normal 0.1-0.9 [facility]; [facility] Work Phone: Monocytes/100 WBC (Bld) 10 % Normal [facility] Work Phone: Comment on above: PATIENT WAS FASTINGP ERFORMED BY: Lab[address] [id number] BY: [facility] Bmswsp9519 Beltr[address] RoadDublin [place] [id number] Neutrophils (Bld) [#/Vol] 3.4 {x10E3/uL} Normal 1.4-7.0 [facility] Work Phone: Comment on above: PATIENT WAS FASTINGP ERFORMED BY: Lab[address] [id number] BY: LabCo Ngjypq0955 Beltran RoadDublin [place] [id number] Neutrophils (Bld) [#/Vol] 3.4 10*3/uL Normal 1.4-7.0 [facility]; [facility] Work Phone: Neutrophils/100 WBC (Bld) 59 % Normal [facility] Work Phone: Comment on above: PATIENT WAS FASTINGP ERFORMED BY: [address] [id number] BY: LabCoPSE&G Children's Specialized HospitalKsanpx8367 [address]tran RoadDuin [place] [id number] Platelets (Bld) [#/Vol] 296 {x10E3/uL} Normal 150-450 [facility] Work Phone: Comment on above: PATIENT WAS FASTINGP ERFORMED BY: [address] [id number] BY: LabStra[facility] Surgery[address] [facility]in [place] [id number] Platelets (Bld) [#/Vol] 296 10*3/uL Normal 150-450 [facility]; [facility] Work Phone: RBC (Bld) [#/Vol] 5.09 {x10E6/uL} Normal 3.77-5.28 [facility] Internal Medicine Work Phone: Comment on above: PATIENT WAS FASTINGP ERFORMED BY: [address] [id number] BY: MAGGIE InCorta Amrbcz1406 [facility] [id number] RBC (Bld) [#/Vol] 5.09 10*6/uL Normal 3.77-5.28 Compr ehensive Internal Medicine; [facility] Work Phone: WBC (Bld) [#/Vol] 5.6 {x10E3/uL} Normal 3.4-10.8 [facility] Work Phone: Comment on above: PATIENT WAS FASTINGP ERFORMED BY: Vaurum [address] [id number] BY: Oneflare Tumzud7828 [facility] [id number] WBC (Bld) [#/Vol] 5.6 10*3/uL Normal 3.4-10.8 [facility]; [facility] Work Phone: MICROALBUMINOrdered By: Syst em Postal Carrier on 12-30-2018 Albumin DL <= 20 mg/L (U) [Mass/Vol] 18.7 ug/mL Normal Comprehensiv e Internal Medicine Work Phone: Comment on above: PATIENT WAS FASTINGP ERFORMED BY: [facility] [id number] BY: [employer] Doyhvs4305 [facility] [id number] Albumin/Creatinine (U) [Mass ratio] 9.4 {mg/g_creat} Normal 0.0-30.0 [facility] Work Phone: Comment on above: Normal: 0.0 - 30.0 A lbuminuria: 31.0 - 300.0 Clinical albuminuria: >300.0 PATIENT WAS FASTINGP ERFORMED BY: [facility] [id number] BY: InCorta Qyuyeb9620 [facility] [id number] Creatinine (U) [Mass/Vol] 199.5 mg/dL Normal [facility] Work Phone: Comment on above: PATIENT WAS FASTINGP ERFORMED BY: [facility] [address] [id number] BY: MAGGIE [facility] Rrqoqp7840 [address] RoadDublin [place] [id number] Metabolic Panel, Comprehensi ve (75536)Ordered By: Occupational Medicine Officer on 12-30-2018 Albumin [Mass/Vol] 4.3 g/dL Normal 3.6-4.8 [facility] Internal Medicine Work Phone: Comment on above: PATIENT WAS FASTINGP ERFORMED BY: [facility] [address] [id number] BY: MAGGIE [facility] Ahgync[address] [facility]in [place] [id number] Albumin/Globulin [Mass ratio] 2.7 {ratio} Abnormal 1.2-2.2 [facility] Work Phone: Comment on above: PATIENT WAS FASTINGP ERFORMED BY: [facility] [address] [id number] BY: MAGGIE [facility] Yexlhf6502 [address] RoadEcu Health Roanoke-Chowan Hospitalin [place] [id number] ALP [Catalytic activity/Vol] 91 [iU]/L Normal 39-117 [facility] Work Phone: Comment on above: PATIENT WAS FASTINGP ERFORMED BY: LabCo[address] [id number] BY: CB [facility] Dnjvmd5630 [address] Roadblin [place] [id number] ALP [Catalytic activity/Vol] 91 U/L Normal 39-117 [facility]; [facility] Work Phone: ALT [Catalytic activity/Vol] 20 [iU]/L Normal 0-32 [facility] Work Phone: Comment on above: PATIENT WAS FASTINGP ERFORMED BY: BN [facility] [address] [id number] BY: CB [facility] Ccnouh2718 [address] RoadAtrium Health Cleveland [id number] ALT [Catalytic activity/Vol] 20 U/L Normal 0-32 [facility]; [facility] Work Phone: AST [Catalytic activity/Vol] 22 [iU]/L Normal 0-40 [facility] Internal Medicine Work Phone: Comment on above: PATIENT WAS FASTINGP ERFORMED BY: LabCo[address] [id number] BY: [facility] Bfncjv5884 [facility] [id number] AST [Catalytic activity/Vol] 22 U/L Normal 0-40 [facility]; [facility] Work Phone: Bilirubin [Mass/Vol] 0.3 mg/dL Normal 0.0-1.2 [facility]eren[facility] Internal [facility] Work Phone: Comment on above: PATIENT WAS FASTINGP ERFORMED BY: LabCo[address] [id number] BY: LabCoZachary Ville 8116070 [facility] [id number] Calcium [Mass/Vol] 9.3 mg/dL Normal 8.7-10.3 [facility] Internal Medicine Work Phone: Comment on above: PATIENT WAS FASTINGP ERFORMED BY: LabColovore[address] [id number] BY: [facility] Gbddbn5428 [facility] [id number] Chloride [Moles/Vol] 106 mmol/L Normal 96-106 [facility] Centerensive Internal Medicine Work Phone: Comment on above: PATIENT WAS FASTINGP ERFORMED BY: [address] [id number] BY: [facility] Arwctz2603 [facility] [id number] CO2 [Moles/Vol] 25 mmol/L Normal 20-29 [facility] Internal Medicine Work Phone: Comment on above: PATIENT WAS FASTINGP ERFORMED BY: [address] [id number] BY: [facility] Ilcmuq7766 [address] [facility] [id number] Creatinine [Mass/Vol] 0.69 mg/dL Normal 0.57-1.00 [facility] Work Phone: Comment on above: PATIENT WAS FASTINGP ERFORMED BY: [address] [id number] BY: LabCoMimbres Memorial HospitalJnuccp6965 [facility] [id number] GFR/1.73 sq M predicted among blacks CKD-EPI (S/P/Bld) [Vol rate/Area] 103 mL/min/1.73 Normal [facility] Work Phone: Comment on above: PATIENT WAS FASTINGP ERFORMED BY: [address] [id number] BY: [facility]6370 [facility] [id number] GFR/1.73 sq M predicted among non-blacks CKD-EPI (S/P/Bld) [Vol rate/Area] 90 mL/min/1.73 Normal [facility] Work Phone: Comment on above: PATIENT WAS FASTINGP ERFORMED BY: [address] [id number] BY: [facility] Bwafne5310 [facility] [id number] Globulin (S) [Mass/Vol] 1.6 g/dL Normal 1.5-4.5 [facility] Work Phone: Comment on above: PATIENT WAS FASTINGP ERFORMED BY: Lab[address] [id number] BY: LabStraith [facility] For Special Surgery6370 [facility] [id number] Glucose [Mass/Vol] 94 mg/dL Normal 65-99 [facility] Internal Medicine Work Phone: Comment on above: PATIENT WAS FASTINGP ERFORMED BY: [facility] Kmcayuvwtb6113 [facility] [id number] BY: MAGGIE [facility] Eewpzl5352 [address] RoadDublin [place] [id number] Potassium [Moles/Vol] 4.4 mmol/L Normal 3.5-5.2 [facility] Work Phone: Comment on above: PATIENT WAS FASTINGP ERFORMED BY: [facility] [address] [id number] BY: CB [facility] Lotzeh3161 [address] RoadDublin [place] [id number] Protein [Mass/Vol] 5.9 g/dL Abnormal 6.0-8.5 [facility] Internal Medicine Work Phone: Comment on above: PATIENT WAS FASTINGP ERFORMED BY: [facility] [address] [id number] BY: MAGGIE [facility] Zxwwfq7081 Beltran RoadEcu Health Roan[facility]-Chow[facility] Hospitalin [place] [id number] Sodium [Moles/Vol] 146 mmol/L Abnormal 134-144 [facility] Internal Medicine Work Phone: Comment on above: PATIENT WAS FASTINGP ERFORMED BY: [facility] [address] [id number] BY: MAGGIE [facility] Utvzak2921 [address] RoadDuin [place] [id number] Urea nitrogen [Mass/Vol] 17 mg/dL Normal 8- [facility] Work Phone: Comment on above: PATIENT WAS FASTINGP ERFORMED BY: [facility] [address] [id number] BY: MAGGIE [facility] Rfrszm4556 [address] RoadDublin [place] [id number] Urea nitrogen/Creatinine [Mass ratio] 25 mg/mg Normal 12- [facility] Work Phone: Comment on above: PATIENT WAS FASTINGP ERFORMED BY: [facility] [address] [id number] BY: Screenz6370 [facility] [id number] NMR Profile (47209)Ordered B y: Occupational Medicine Officer on 12-30-2018 Cholesterol [Mass/Vol] 167 mg/dL Normal 100-199 [facility] Work Phone: Comment on above: PATIENT WAS FASTINGP ERFORMED BY: [employer] [id number] BY: [employer]70 [facility] [id number] Lipoprotein.alpha [Moles/Vol] 31.0 umol/L Normal [facility] Work Phone: Comment on above: PATIENT WAS FASTINGP ERFORMED BY: CardLab[address] [place] [address] [id number] BY: [employer]70 [facility] [id number] Lipoprotein.beta.sub particle [Entitic length] 21.0 nm Normal [facility] Work Phone: Comment on above: INTERPRETATIVE INFORMATION PARTICLE CONCENTRATION AND SIZE <--Lower CVD Risk Higher CVD Risk--> LDL AND HDL PARTICLES Percentile in Reference Population HDL-P (total) High 75th 50th 25th Low >34.9 34.9 30.5 26.7 <26.7 . Small LDL-P Low 25th 50th 75th High <117 117 527 839 >839 . LDL Size <-Large (Pattern A)-> <-Small (Pattern B)-> 23.0 20.6 20.5 19.0 Small LDL-P and LDL Size are associated with CVD risk, but not afterLDL-P is taken into account. .These assays were developed and their performance characteristicsdetermined by [employer]. These assays have not been cleared by [place] Food and Drug Administration. The clinical utility of theselaboratory values have not been fully established. PATIENT WAS FASTINGP ERFORMED BY: Lab[address] [id number] BY: LabCo Roobfn4080 [address] RoadDublin [place] [id number] Lipoprotein.beta.sub particle [Moles/Vol] 1344 nmol/L Abnormal Comprehensi Internal Medicine Work Phone: Comment on above: Low < 1000 Moderate 1000 - 1299 Borderline-High 1300 - 1599 High 1600 - 2000 Very High > 2000 PATIENT WAS FASTINGP ERFORMED BY: Lab[address] [id number] BY: Lab[facility] Retidp0585 [address] RoadDublin [place] [id number] Lipoprotein.beta.sub particle.small [Moles/Vol] 604 nmol/L Abnormal [facility] Work Phone: Comment on above: PATIENT WAS FASTINGP ERFORMED BY: Lab[address] [id number] BY: [facility] Ozzrfg2447 [address] RoadDublin [place] [id number] Triglyceride [Mass/Vol] 63 mg/dL Normal 0-149 [facility] Work Phone: Comment on above: PATIENT WAS FASTINGP ERFORMED BY: [address] [id number] BY: [facility] Oduqcc[address] [facility] Hospitalblin [place] [id number] NMR Profile (07272) 53 mg/dL Normal Compr ehensive Internal Medicine Work Phone: Comment on above: PATIENT WAS FASTINGP ERFORMED BY: [address] [id number] BY: [facility] Gcjgjw3704 [address] RoadDublin [place] [id number] NMR Profile (51310) 101 mg/dL Abnormal 0-99 [facility] Internal Medicine Work Phone: Comment on above: . Optimal < 100 Abov e optimal 100 - 129 Borderline 130 - 159 High 160 - 189 Very high > 189 .LDL-C is inaccurate if patient is non-fasting. PATIENT WAS FASTINGP ERFORMED BY: [employer] [id number] BY: [employer]70 [facility] [id number] NMR Profile (78266) 63 mg/dL Normal 0-149 [facility] Internal Medicine; [facility] Work Phone: NMR Profile (46980) 167 mg/dL Normal 100-199 [facility] Internal Medicine; [facility] Internal Medicine Work Phone: T3, FREE (TRIDOTHYRONINE) (7 7131)Ordered By: Occupational Medicine Officer on 12-30-2018 Free T3 [Mass/Vol] 3.3 pg/mL Normal 2.0-4.4 [facility] Internal Medicine Work Phone: Comment on above: PATIENT WAS FASTINGP ERFORMED BY: [employer] [id number] BY: [employer]70 [facility] [id number] T4, FREE (THYROXINE) (00246) Ordered By: Occupational Medicine Officer on 12-30-2018 Free T4 [Mass/Vol] 1.69 ng/dL Normal 0.82-1.77 [facility] Internal Medicine Work Phone: Comment on above: PATIENT WAS FASTINGP ERFORMED BY: [employer] [id number] BY: [employer]70 [facility] [id number] TSH (36397)Ordered By: Hotel [employer] Themese m Postal Carrier on 12-30-2018 TSH Qn 0.933 {uIU/mL} Normal 0.450-4.50 0 [facility] Internal Medicine Work Phone: Comment on above: PATIENT WAS FASTINGP ERFORMED BY: [address] [id number] BY: MAGGIE [facility] Xsjbgz5932 [address] RoadDublin [place] [id number] URINALYSIS (25132)Ordered By : Occupational Medicine Officer on 12-30-2018 Appearance (U) Clear Normal Comprehens verna Internal Medicine Work Phone: Comment on above: PATIENT WAS FASTINGP ERFORMED BY: LabCo[address] [id number] BY: MAGGIE [facility] Grjhsl6779 [address] RoadDublin [place] [id number] Bilirubin Ql (U) Negative Normal Comprehe nsive Internal Medicine Work Phone: Comment on above: PATIENT WAS FASTINGP ERFORMED BY: [address] [id number] BY: MAGGIE [facility] Ukcwkj1889 Bletran RoadDublin [place] [id number] Bilirubin Ql (U) Negative Normal Comprehe nsive Internal Medicine; [facility] Work Phone: Color (U) Yellow Normal [facility] Work Phone: Comment on above: PATIENT WAS FASTINGP ERFORMED BY: LabCo[address] [id number] BY: MAGGIE LabCotigist SanchezBjpcsq7378 [address]tr[address] RoadDublin [place] [id number] Glucose Ql (U) Negative Normal Comprehens verna Internal Medicine Work Phone: Comment on above: PATIENT WAS FASTINGP ERFORMED BY: Lab[address] [id number] BY: MAGGIE [facility] Apmqun5881 [address] RoadDublin [place] [id number] Glucose Ql (U) Negative Normal Comprehens verna Internal Medicine; [facility] Work Phone: Hemoglobin Ql (U) Negative Normal Compreh ensive Internal Medicine Work Phone: Comment on above: PATIENT WAS FASTINGP ERFORMED BY: [employer] [id number] BY: [facility] Ttxsqd8143 [address] RoadDublin [place] [id number] Hemoglobin Ql (U) Negative Normal Compreh ensive Internal Medicine; [facility] Work Phone: Ketones Ql (U) Negative Normal Comprehens verna Internal Medicine Work Phone: Comment on above: PATIENT WAS FASTINGP ERFORMED BY: InCorta[address] [id number] BY: [facility] Gznfuv9576 [address] RoadDublin [place] [id number] Ketones Ql (U) Negative Normal Comprehens verna Internal Medicine; [facility] Work Phone: Leukocyte esterase Test strip Ql (U) Negative Normal [facility] Work Phone: Comment on above: PATIENT WAS FASTINGP ERFORMED BY: InCorta[address] [id number] BY: [facility] Xbfwnk8872 [address] RoadDublin [place] [id number] Leukocyte esterase Test strip Ql (U) Negative Normal [facility]; [facility] Work Phone: Microscopic observation LM Nom (Urine sed) See below: Normal [facility] Work Phone: Comment on above: Microscopic was yamileth cated and was performed. PATIENT WAS FASTINGP ERFORMED BY: InCorta[address] [id number] BY: [facility] Bdyfvn2615 [address] RoadDublin [place] [id number] Nitrite Ql (U) Negative Normal Comprehens verna Internal Medicine Work Phone: Comment on above: PATIENT WAS FASTINGP ERFORMED BY: InCorta[address] [id number] BY: [facility] Jemoza0497 [address] RoadDublin [place] [id number] Nitrite Ql (U) Negative Normal Comprehens verna Internal Medicine; [facility] Work Phone: pH (U) 7.0 [pH] Normal 5.0-7.5 [facility] Work Phone: Comment on above: PATIENT WAS FASTINGP ERFORMED BY: Vaurum [address] [id number] BY: MAGGIE [facility] Bofgqw4759 [address] Roadblin [place] [id number] Protein Ql (U) 1+ Abnormal [facility] verna Internal Medicine Work Phone: Comment on above: PATIENT WAS FASTINGP ERFORMED BY: Vaurum [address] [id number] BY: LabColovorerp Svdcru9534 [address] Kiddies SmilzCaroMont Regional Medical Center [id number] Specific gravity (U) [Rel density] 1.028 1 Normal 1.005-1.03 0 [facility] Internal Medicine Work Phone: Comment on above: PATIENT WAS FASTINGP ERFORMED BY: Vaurum [address] [id number] BY: MAGGIE LabColovorerp Gpgutf2[address] Rafterin [place] [id number] Urobilinogen (U) [Mass/Vol] 0.2 mg/dL Normal 0.2-1.0 [facility] Internal Medicine; [facility] Internal Medicine Work Phone: Urobilinogen Test strip (U) [Mass/Vol] 0.2 mg/dL Normal 0.2-1.0 [facility] Internal Medicine Work Phone: Comment on above: PATIENT WAS FASTINGP ERFORMED BY: InCorta[address] [id number] BY: LabColovore Zolrwn[address] [facility]in [place] [id number] AMYLASE (17235)Ordered By: Noah arzate Postal Carrier on 10-18-2015 Amylase [Catalytic activity/Vol] 61 U/L Normal 31-124 [facility] Work Phone: Comment on above: send copy to dr Capo Terry; PATIENT NOT FASTINGPERFORMED BY: CB [facility] Ojeksk7787 [address] RoadDublin [place] [id number] C-REACTIVE PROTEIN (08184)Or dered By: Occupational Medicine Officer on 10-18-2015 CRP [Mass/Vol] 1.8 mg/L Normal 0.0-4.9 [facility] Internal Medicine Work Phone: Comment on above: send copy to dr capo terry; PATIENT NOT FASTINGPERFORMED BY: CB [facility] Ybrqbn2337 [address] RoadDublin [place] [id number] LIPASE (85131)Ordered By: Sy stem Postal Carrier on 10-18-2015 Lipase [Catalytic activity/Vol] 43 U/L Normal 0-59 [facility] Work Phone: Comment on above: send copy to dr capo terry; PATIENT NOT FASTINGPERFORMED BY: CB [facility] Qszthf7689 [address] RoadDublin [place] [id number] SED RATE ERYTHROCYTE (18161) Ordered By: Occupational Medicine Officer on 10-18-2015 ESR (Bld) [Velocity] 2 mm/h Normal 0-40 [facility] Internal Medicine Work Phone: Comment on above: send copy to dr capo terry; PATIENT NOT FASTINGPERFORMED BY: CB [facility] Izedxe1633 [address] RoadDublin [place] [id number] Information: [id number] CALCIFIDIOL (58702) VIT D 25 Ordered By: Occupational Medicine Officer on 04-18-2015 25-Hydroxyvitamin D2+25-Hydroxyvitamin D3 [Mass/Vol] 62.7 ng/mL Normal 30.0-100.0 [facility] Work Phone: Comment on above: Vitamin D deficiency has been defined by the [place] ofMedicine and an Endocrine Society practice guideline as alevel of serum 25-OH vitamin D less than 20 ng/mL (1,2).The Endocrine Society went on to further define vitamin Dinsufficiency as a level between 21 and 29 ng/mL (2).1. IOM ([place] of Medicine). 2010. Dietary reference intakes for calcium and D. [place]: The National Academies Press.2. Chang De La Fuente, Onesimo ERVIN, et al. Evaluation, treatment, and prevention of vitamin D deficiency: an Endocrine Society clinical practice guideline. JCEM. 2010; 96(7):1911-30. PATIENT NOT FASTINGP ERFORMED BY: VerivueCorp Ucloxn8674 [address] RoadDublin [place] [id number] TSH (29099)Ordered By: [employer] Postal Carrier on 04-18-2015 TSH Qn 1.360 {uIU/mL} Normal 0.450-4.50 0 [facility] Work Phone: Comment on above: PATIENT NOT FASTINGP ERFORMED BY: [employer] [facility] Mvlhtw5361 [address] RoadDublin [place] [id number] Information: [id number] C-REACTIVE PROTEIN (31298)Or dered By: Occupational Medicine Officer on 09-14-2014 CRP [Mass/Vol] 1.1 mg/L Normal 0.0-4.9 [facility] Internal Medicine Work Phone: Comment on above: PERFORMED BY: [employer] Mlqxgq9[address] Rafterblin [place] [id number] CALCIFIDIOL (98855) VIT D 25 Ordered By: Occupational Medicine Officer on 09-14-2014 25-Hydroxyvitamin D2+25-Hydroxyvitamin D3 [Mass/Vol] 29.9 ng/mL Abnormal 30.0-100.0 [facility] Work Phone: Comment on above: Vitamin D deficiency has been defined by the [place] ofTri[facility] Mccull[facility]Hy[facility] Memorial Hospitalcine and an Endocrine Society practice guideline as alevel of serum 25-OH vitamin D less than 20 ng/mL (1,2).The Endocrine Society went on to further define vitamin Dinsufficiency as a level between 21 and 29 ng/mL (2).1. IOM ([place] of Medicine). 2010. Dietary reference intakes for calcium and D. [place]: The National Academies Press.2. Chang De La Fuente, Onesimo ERVIN, et al. Evaluation, treatment, and prevention of vitamin D deficiency: an Endocrine Society clinical practice guideline. JCEM. 2010; 96(7):1911-30. PERFORMED BY: CB Lab [employer]70 [address] Systemsin [place] [id number] CBC W/AUTO DIFF WBC (17920)O rdered By: Occupational Medicine Officer on 09-14-2014 Basophils (Bld) [#/Vol] 0.1 {x10E3/uL} Normal 0.0-0.2 [facility] Work Phone: Comment on above: PERFORMED BY: [employer] BeltranADman MediaCaroMont Regional Medical Center [id number] Basophils (Bld) [#/Vol] 0.1 10*3/uL Normal 0.0-0.2 [facility]; [facility] Work Phone: Basophils/100 WBC (Bld) 1 % Normal [facility] Work Phone: Comment on above: PERFORMED BY: Ask.comAtrium Health Cleveland [id number] Eosinophils (Bld) [#/Vol] 0.2 {x10E3/uL} Normal 0.0-0.4 [facility] Work Phone: Comment on above: PERFORMED BY: QuantcastCaroMont Regional Medical Center [id number] Eosinophils (Bld) [#/Vol] 0.2 10*3/uL Normal 0.0-0.4 [facility]; [facility] Work Phone: Eosinophils/100 WBC (Bld) 3 % Normal [facility] Work Phone: Comment on above: PERFORMED BY: QuantcastCaroMont Regional Medical Center [id number] Erythrocyte distribution width (RBC) [Ratio] 13.1 % Normal 12.3-15.4 [facility] Work Phone: Comment on above: PERFORMED BY: QuantcastCaroMont Regional Medical Center [id number] Hematocrit (Bld) [Volume fraction] 43.9 % Normal 34.0-46.6 [facility] Work Phone: Comment on above: PERFORMED BY: QuantcastCaroMont Regional Medical Center [id number] Hemoglobin (Bld) [Mass/Vol] 15.2 g/dL Normal 11.1-15.9 [facility] Work Phone: Comment on above: PERFORMED BY: [employer] [place] [address] [id number] Immature granulocytes (Bld) [#/Vol] 0.0 {x10E3/uL} Normal 0.0-0.1 [facility] Work Phone: Comment on above: PERFORMED BY: [employer] [place] [address] [id number] Immature granulocytes (Bld) [#/Vol] 0.0 10*3/uL Normal 0.0-0.1 [facility]; [facility] Work Phone: Immature granulocytes/100 WBC (Bld) 0 % Normal [facility] Work Phone: Comment on above: PERFORMED BY: [employer] [place], [place] [address] [id number] Lymphocytes (Bld) [#/Vol] 2.1 {x10E3/uL} Normal 0.7-3.1 [facility] Work Phone: Comment on above: PERFORMED BY: Mozes[address] [place], [place] [address] [id number] Lymphocytes (Bld) [#/Vol] 2.1 10*3/uL Normal 0.7-3.1 [facility]; [facility] Work Phone: Lymphocytes/100 WBC (Bld) 30 % Normal [facility] Work Phone: Comment on above: PERFORMED BY: [employer] [place] [address] [id number] MCH (RBC) [Entitic mass] 28.7 pg Normal 26.6-33.0 [facility] Work Phone: Comment on above: PERFORMED BY: Sol[employer] [id number] MCHC (RBC) [Mass/Vol] 34.6 g/dL Normal 31.5-35.7 [facility] Work Phone: Comment on above: PERFORMED BY: Mozes[address] RoadDublin [place] [id number] MCV (RBC) [Entitic vol] 83 fL Normal 79-97 [facility] Work Phone: Comment on above: PERFORMED BY: Mozes[address]ublin [place] [id number] Monocytes (Bld) [#/Vol] 0.9 {x10E3/uL} Normal 0.1-0.9 [facility] Work Phone: Comment on above: PERFORMED BY: [employer]Dublin [place] [id number] Monocytes (Bld) [#/Vol] 0.9 10*3/uL Normal 0.1-0.9 [facility]; [facility] Work Phone: Monocytes/100 WBC (Bld) 13 % Normal [facility] Work Phone: Comment on above: PERFORMED BY: Mozes[address]ublin [place] [id number] Neutrophils (Bld) [#/Vol] 3.5 {x10E3/uL} Normal 1.4-7.0 [facility] Work Phone: Comment on above: PERFORMED BY: Mozes[address] SmilzDublin [place] [id number] Neutrophils (Bld) [#/Vol] 3.5 10*3/uL Normal 1.4-7.0 [facility]; [facility] Work Phone: Neutrophils/100 WBC (Bld) 53 % Normal [facility] Work Phone: Comment on above: PERFORMED BY: Mozes[address]ublin [place] [id number] Platelets (Bld) [#/Vol] 305 {x10E3/uL} Normal 150-379 [facility] Work Phone: Comment on above: PERFORMED BY: Mozes[address]ublin [place] [id number] Platelets (Bld) [#/Vol] 305 10*3/uL Normal 150-379 [facility]; [facility] Work Phone: RBC (Bld) [#/Vol] 5.29 {x10E6/uL} Abnormal 3.77-5.28 [facility] Internal Medicine Work Phone: Comment on above: PERFORMED BY: [facility]At[facility] [id number] RBC (Bld) [#/Vol] 5.29 10*6/uL Abnormal 3.77-5.28 [facility] Medicine; [facility] Work Phone: WBC (Bld) [#/Vol] 6.8 {x10E3/uL} Normal 3.4-10.8 [facility] Work Phone: Comment on above: PERFORMED BY: [facility].comAt[facility] [id number] WBC (Bld) [#/Vol] 6.8 10*3/uL Normal 3.4-10.8 [facility] Medicine; [facility] Work Phone: METABOLIC PANEL, COMPREHENSI RAEANN ([id number])Ordered By: Occupational Medicine Officer on 09-14-2014 Albumin [Mass/Vol] 4.3 g/dL Normal 3.6-4.8 [facility] Internal Medicine Work Phone: Comment on above: PERFORMED BY: [facility].com[facility] [id number] Albumin/Globulin [Mass ratio] 1.8 {ratio} Normal 1.1-2.5 [facility] Work Phone: Comment on above: PERFORMED BY: [facility] [id number] ALP [Catalytic activity/Vol] 76 [iU]/L Normal 39-117 [facility] Work Phone: Comment on above: PERFORMED BY: [facility] [id number] ALP [Catalytic activity/Vol] 76 U/L Normal 39-117 [facility]; [facility] Work Phone: ALT [Catalytic activity/Vol] 17 [iU]/L Normal 0-32 [facility] Work Phone: Comment on above: PERFORMED BY: Mozes[address] RoadDolphin Geeksblin [place] [id number] ALT [Catalytic activity/Vol] 17 U/L Normal 0-32 [facility]; [facility] Work Phone: AST [Catalytic activity/Vol] 17 [iU]/L Normal 0-40 [facility] Work Phone: Comment on above: PERFORMED BY: [employer] [id number] AST [Catalytic activity/Vol] 17 U/L Normal 0-40 [facility]; [facility] Work Phone: Bilirubin [Mass/Vol] 0.5 mg/dL Normal 0.0-1.2 [facility] Work Phone: Comment on above: PERFORMED BY: [employer] [place] [id number] Calcium [Mass/Vol] 9.9 mg/dL Normal 8.7-10.3 [facility] Internal Medicine Work Phone: Comment on above: PERFORMED BY: [employer] [place] [id number] Chloride [Moles/Vol] 92 mmol/L Abnormal 97-108 [facility] Work Phone: Comment on above: PERFORMED BY: Mozes[address] [id number] CO2 [Moles/Vol] 26 mmol/L Normal 18-29 [facility] Internal [facility] Work Phone: Comment on above: PERFORMED BY: [employer] [place] [id number] Creatinine [Mass/Vol] 0.73 mg/dL Normal 0.57-1.00 [facility] Work Phone: Comment on above: PERFORMED BY: Mozes[address] [id number] GFR/1.73 sq M predicted among blacks CKD-EPI (S/P/Bld) [Vol rate/Area] 101 mL/min/1.73 Normal [facility] Work Phone: Comment on above: PERFORMED BY: Mozes[address] [id number] GFR/1.73 sq M predicted among non-blacks CKD-EPI (S/P/Bld) [Vol rate/Area] 88 mL/min/1.73 Normal [facility] Work Phone: Comment on above: PERFORMED BY: Mozes6370 KeepGoAt[facility] [id number] Globulin (S) [Mass/Vol] 2.4 g/dL Normal 1.5-4.5 [facility] Work Phone: Comment on above: PERFORMED BY: Mozes6370 KeepGoAt[facility] [id number] Glucose [Mass/Vol] 93 mg/dL Normal 65-99 [facility] Internal Medicine Work Phone: Comment on above: PERFORMED BY: Mozes6370 KeepGoAt[facility] [id number] Potassium [Moles/Vol] 4.4 mmol/L Normal 3.5-5.2 [facility] Work Phone: Comment on above: PERFORMED BY: Mozes6370 KeepGoAt[facility] [id number] Protein [Mass/Vol] 6.7 g/dL Normal 6.0-8.5 [facility] Internal Medicine Work Phone: Comment on above: PERFORMED BY: Mozes6370 KeepGoAt[facility] [id number] Sodium [Moles/Vol] 135 mmol/L Normal 134-144 [facility] Work Phone: Comment on above: PERFORMED BY: [employer]70 KeepGoAt[facility] [id number] Urea nitrogen [Mass/Vol] 8 mg/dL Normal 8-27 [facility] Work Phone: Comment on above: PERFORMED BY: Mozes6370 KeepGoAt[facility] Health [facility] [id number] Urea nitrogen/Creatinine [Mass ratio] 11 mg/mg Normal 11-26 [facility] Work Phone: Comment on above: PERFORMED BY: [employer] [facility] [id number] SED RATE ERYTHROCYTE (02492) Ordered By: Occupational Medicine Officer on 09-14-2014 ESR (Bld) [Velocity] 2 mm/h Normal 0-40 [facility] Work Phone: Comment on above: PERFORMED BY: [employer] [facility] [id number] TSH (90807)Ordered By: [employer] m Postal Carrier on 09-14-2014 TSH Qn 1.400 {uIU/mL} Normal 0.450-4.50 0 [facility] Work Phone: Comment on above: PERFORMED BY: [employer] [facility] [id number] MAGNESIUM (12332)Ordered By: Occupational Medicine Officer on 10-04-2013 Magnesium [Mass/Vol] 2.0 mg/dL Normal 1.6-2.6 [facility] Work Phone: Comment on above: PATIENT NOT FASTINGP ERFORMED BY: [employer]70 [facility] [id number] POTASSIUM SERUM (87602)Order ed By: Occupational Medicine Officer on 10-04-2013 Potassium [Moles/Vol] 4.0 mmol/L Normal 3.5-5.2 [facility] Work Phone: Comment on above: PATIENT NOT FASTINGP ERFORMED BY: [employer]70 [facility] [id number] Information: [id number] Metabolic Panel, Basic (8004 8)Ordered By: Occupational Medicine Officer on 06-30-2013 Calcium [Mass/Vol] 9.3 mg/dL Normal 8.6-10.2 [facility] Internal [facility] Work Phone: Comment on above: PATIENT NOT FASTINGP ERFORMED BY: CB [facility] Yxkocf34[address] [facility] [place] [id number] Information: [id number],[id number] Chloride [Moles/Vol] 95 mmol/L Abnormal 97-108 [facility] Work Phone: Comment on above: PATIENT NOT FASTINGP ERFORMED BY: CB [facility] Ovuyqk8625 [facility] [id number] Information: [id number] CO2 [Moles/Vol] 27 mmol/L Normal 19-28 [facility] Internal Medicine Work Phone: Comment on above: PATIENT NOT FASTINGP ERFORMED BY: CB [facility] Ypiuck3156 [facility] [id number] Information: [id number] Creatinine [Mass/Vol] 0.79 mg/dL Normal 0.57-1.00 [facility] Work Phone: Comment on above: PATIENT NOT FASTINGP ERFORMED BY: CB [facility] Hmgqzv0302 [facility] [id number] Information: [id number] GFR/1.73 sq M predicted among blacks CKD-EPI (S/P/Bld) [Vol rate/Area] 93 mL/min/1.73 Normal [facility] Work Phone: Comment on above: PATIENT NOT FASTINGP ERFORMED BY: CB [facility] Ibprdq6710 [facility] [id number] Information: 594062,M91176 GFR/1.73 sq M predicted among non-blacks CKD-EPI (S/P/Bld) [Vol rate/Area] 80 mL/min/1.73 Normal [facility] Work Phone: Comment on above: PATIENT NOT FASTINGP ERFORMED BY: CB [facility] Kyibbi4749 [address] [facility] [place] [id number] Information: 182135,S79934 Glucose [Mass/Vol] 91 mg/dL Normal 65-99 [facility] Internal Medicine Work Phone: Comment on above: PATIENT NOT FASTINGP ERFORMED BY: MAGGIE LabJared Covarrubias6370 [facility] [id number] Information: 284485,V63267 Potassium [Moles/Vol] 4.3 mmol/L Normal 3.5-5.2 [facility] Work Phone: Comment on above: PATIENT NOT FASTINGP ERFORMED BY: MAGGIE [facility] Bihscq0758 [facility] [id number] Information: 141607,[id number] Sodium [Moles/Vol] 135 mmol/L Normal 134-144 [facility] Internal Medicine Work Phone: Comment on above: PATIENT NOT FASTINGP ERFORMED BY: MAGGIE [facility] Tilpcp3139 [facility] [id number] Information: [id number],V91210 Urea nitrogen [Mass/Vol] 12 mg/dL Normal 8-27 [facility] Work Phone: Comment on above: PATIENT NOT FASTINGP ERFORMED BY: MAGGIE [facility] Tacrbp9247 [facility] [id number] Information: 353000,H11902 Urea nitrogen/Creatinine [Mass ratio] 15 mg/mg Normal 11-26 [facility] Work Phone: Comment on above: PATIENT NOT FASTINGP ERFORMED BY: [facility] Exfhjc9712 [facility] [id number] Information: 179149,[id number] CBC WITH MANUAL DIFF (31129) Ordered By: Occupational Medicine Officer on 05-30-2013 Basophils (Bld) [#/Vol] 0.1 {x10E3/uL} Normal 0.0-0.2 [facility] Work Phone: Comment on above: PATIENT NOT FASTINGP ERFORMED BY: MAGGIE [facility] Zqiwik8974 [facility] [id number] Information: 085338,[id number] Basophils (Bld) [#/Vol] 0.1 10*3/uL Normal 0.0-0.2 [facility]; [facility] Work Phone: Basophils/100 WBC (Bld) 1 % Normal 0-3 [facility] Work Phone: Comment on above: PATIENT NOT FASTINGP ERFORMED BY: LabCoZachary [place] 8116070 [facility] [id number] Information: 594955,V70967 Eosinophils (Bld) [#/Vol] 0.3 {x10E3/uL} Normal 0.0-0.4 [facility] Work Phone: Comment on above: PATIENT NOT FASTINGP ERFORMED BY: [address] [id number] Information: 909681,[id number] Eosinophils (Bld) [#/Vol] 0.3 10*3/uL Normal 0.0-0.4 [facility]; [facility] Work Phone: Eosinophils/100 WBC (Bld) 4 % Normal 0-5 [facility] Work Phone: Comment on above: PATIENT NOT FASTINGP ERFORMED BY: Lab[address] [id number] Information: 716720,K19133 Erythrocyte distribution width (RBC) [Ratio] 13.8 % Normal 12.3-15.4 [facility] Work Phone: Comment on above: PATIENT NOT FASTINGP ERFORMED BY: LabCoZachary V[place] 8116070 [facility] [id number] Information: 312387,N91768 Hematocrit (Bld) [Volume fraction] 41.3 % Normal 34.0-46.6 [facility] Work Phone: Comment on above: PATIENT NOT FASTINGP ERFORMED BY: LabNicholas V[place] 0427170 [facility] [id number] Information: 301773,H47153 Hemoglobin (Bld) [Mass/Vol] 14.1 g/dL Normal 11.1-15.9 [facility] Work Phone: Comment on above: PATIENT NOT FASTINGP ERFORMED BY: MAGGIE Covarrubias6370 [facility] [id number] Information: 584281,[id number] Immature granulocytes (Bld) [#/Vol] 0.0 {x10E3/uL} Normal 0.0-0.1 [facility] Work Phone: Comment on above: PATIENT NOT FASTINGP ERFORMED BY: [address] [id number] Information: 552054,[id number] Immature granulocytes (Bld) [#/Vol] 0.0 10*3/uL Normal 0.0-0.1 [facility]; [facility] Work Phone: Immature granulocytes/100 WBC (Bld) 0 % Normal 0-2 [facility] Work Phone: Comment on above: PATIENT NOT FASTINGP ERFORMED BY: [place] [id number] [facility] [id number] Information: 169845,[id number] Lymphocytes (Bld) [#/Vol] 1.9 {x10E3/uL} Normal 0.7-3.1 [facility] Work Phone: Comment on above: PATIENT NOT FASTINGP ERFORMED BY: [place] 0629770 [facility] [id number] Information: 212967,P08833 Lymphocytes (Bld) [#/Vol] 1.9 10*3/uL Normal 0.7-3.1 [facility]; [facility] Work Phone: Lymphocytes/100 WBC (Bld) 25 % Normal 14-46 [facility] Work Phone: Comment on above: PATIENT NOT FASTINGP ERFORMED BY: [place] 0629770 [facility] [id number] Information: [id number] MCH (RBC) [Entitic mass] 28.5 pg Normal 26.6-33.0 [facility] Work Phone: Comment on above: PATIENT NOT FASTINGP ERFORMED BY: MAGGIE Sanchezlin6370 [facility] [id number] Information: 101645,[id number] MCHC (RBC) [Mass/Vol] 34.1 g/dL Normal 31.5-35.7 [facility] Work Phone: Comment on above: PATIENT NOT FASTINGP ERFORMED BY: [address] [id number] Information: 089766,[id number] MCV (RBC) [Entitic vol] 84 fL Normal 79-97 [facility] Work Phone: Comment on above: PATIENT NOT FASTINGP ERFORMED BY: [address] [id number] Information: 207518,[id number] Monocytes (Bld) [#/Vol] 0.7 {x10E3/uL} Normal 0.1-0.9 [facility] Work Phone: Comment on above: PATIENT NOT FASTINGP ERFORMED BY: [facility]6370 [facility] [id number] Information: [id number] Monocytes (Bld) [#/Vol] 0.7 10*3/uL Normal 0.1-0.9 [facility]; [facility] Work Phone: Monocytes/100 WBC (Bld) 9 % Normal 4-12 [facility] Work Phone: Comment on above: PATIENT NOT FASTINGP ERFORMED BY: [place] [id number] [facility] [id number] Information: 139248,S44885 Neutrophils (Bld) [#/Vol] 4.7 {x10E3/uL} Normal 1.4-7.0 [facility] Work Phone: Comment on above: PATIENT NOT FASTINGP ERFORMED BY: MAGGIE Tellytigist SanchezUfahmp2110 [facility] [id number] Information: [id number] Neutrophils (Bld) [#/Vol] 4.7 10*3/uL Normal 1.4-7.0 [facility]; [facility] Work Phone: Neutrophils/100 WBC (Bld) 61 % Normal 40-74 [facility] Work Phone: Comment on above: PATIENT NOT FASTINGP ERFORMED BY: MAGGIE ChristyJared SanchezCdiubp9438 [facility] [id number] Information: 670234,[id number] Platelets (Bld) [#/Vol] 295 {x10E3/uL} Normal 155-379 [facility] Work Phone: Comment on above: PATIENT NOT FASTINGP ERFORMED BY: MAGGIE Covarrubias6370 [facility] [id number] Information: 386657,[id number] Platelets (Bld) [#/Vol] 295 10*3/uL Normal 155-379 [facility]; [facility] Internal Medicine Work Phone: RBC (Bld) [#/Vol] 4.94 {x10E6/uL} Normal 3.77-5.28 [facility] Internal Medicine Work Phone: Comment on above: PATIENT NOT FASTINGP ERFORMED BY: MAGGIE Sanchezlin6370 [facility] [id number] Information: 334112,[id number] RBC (Bld) [#/Vol] 4.94 10*6/uL Normal 3.77-5.28 [facility] Internal Medicine; [facility] Internal Medicine Work Phone: WBC (Bld) [#/Vol] 7.7 {x10E3/uL} Normal 3.4-10.8 [facility] Internal Medicine Work Phone: Comment on above: PATIENT NOT FASTINGP ERFORMED BY: MAGGIE Varner Eqnlif9815 [facility] [id number] Information: 786061,[id number] WBC (Bld) [#/Vol] 7.7 10*3/uL Normal 3.4-10.8 [facility] Internal Medicine; [facility] Work Phone: METABOLIC PANEL, COMPREHENSI RAEANN ([id number])Ordered By: Occupational Medicine Officer on 05-30-2013 Albumin [Mass/Vol] 4.0 g/dL Normal 3.6-4.8 [facility] Internal Medicine Work Phone: Comment on above: PATIENT NOT FASTINGP ERFORMED BY: CB [facility] Iicwqs8864 [address] RoadDublin [place] [id number] Albumin/Globulin [Mass ratio] 1.7 {ratio} Normal 1.1-2.5 [facility] Work Phone: Comment on above: PATIENT NOT FASTINGP ERFORMED BY: CB [facility] Hvyjxp7836 [address] RoadDublin [place] [id number] ALP [Catalytic activity/Vol] 62 [iU]/L Normal 39-117 [facility] Work Phone: Comment on above: PATIENT NOT FASTINGP ERFORMED BY: CB [facility] Romvyp7756 [address] RoadDublin [place] [id number] ALP [Catalytic activity/Vol] 62 U/L Normal 39-117 [facility]; [facility] Work Phone: ALT [Catalytic activity/Vol] 17 [iU]/L Normal 0-32 [facility] Work Phone: Comment on above: PATIENT NOT FASTINGP ERFORMED BY: CB [facility] Qcqtyw5559 [address] RoadDublin [place] [id number] ALT [Catalytic activity/Vol] 17 U/L Normal 0-32 [facility]; [facility] Work Phone: AST [Catalytic activity/Vol] 18 [iU]/L Normal 0-40 [facility] Work Phone: Comment on above: PATIENT NOT FASTINGP ERFORMED BY: CB [facility] Qqcjof0670 [address] RoadDublin [place] [id number] AST [Catalytic activity/Vol] 18 U/L Normal 0-40 [facility]; [facility] Work Phone: Bilirubin [Mass/Vol] 0.3 mg/dL Normal 0.0-1.2 [facility] Work Phone: Comment on above: PATIENT NOT FASTINGP ERFORMED BY: CB [facility] Jlwpdg5918 [address] RoadDublin [place] [id number] Calcium [Mass/Vol] 9.2 mg/dL Normal 8.6-10.2 [facility] Internal Medicine Work Phone: Comment on above: PATIENT NOT FASTINGP ERFORMED BY: CB [facility] Iryins8878 [address] RoadDublin [place] [id number] Chloride [Moles/Vol] 101 mmol/L Normal 97-108 [facility] Internal Medicine Work Phone: Comment on above: PATIENT NOT FASTINGP ERFORMED BY: CB [facility] Xxizae8768 [address] RoadDublin [place] [id number] CO2 [Moles/Vol] 25 mmol/L Normal 19-28 [facility] Work Phone: Comment on above: PATIENT NOT FASTINGP ERFORMED BY: CB [facility] Awjhas8673 [address] RoadDublin [place] [id number] Creatinine [Mass/Vol] 0.74 mg/dL Normal 0.57-1.00 [facility] Internal Medicine Work Phone: Comment on above: PATIENT NOT FASTINGP ERFORMED BY: CB [facility] Bcwbnh8429 [address] RoadDublin [place] [id number] GFR/1.73 sq M predicted among blacks CKD-EPI (S/P/Bld) [Vol rate/Area] 100 mL/min/1.73 Normal [facility] Work Phone: Comment on above: PATIENT NOT FASTINGP ERFORMED BY: CB [facility] Olykee9645 [address] RoadDublin [place] [id number] GFR/1.73 sq M predicted among non-blacks CKD-EPI (S/P/Bld) [Vol rate/Area] 87 mL/min/1.73 Normal [facility] Work Phone: Comment on above: PATIENT NOT FASTINGP ERFORMED BY: MAGGIE [facility] Foagjr3242 [address] RoadDublin [place] [id number] Globulin (S) [Mass/Vol] 2.3 g/dL Normal 1.5-4.5 [facility] Work Phone: Comment on above: PATIENT NOT FASTINGP ERFORMED BY: MAGGIE [facility] Ezaepn0594 [address] RoadDublin [place] [id number] Glucose [Mass/Vol] 95 mg/dL Normal 65-99 [facility] Internal Medicine Work Phone: Comment on above: PATIENT NOT FASTINGP ERFORMED BY: MAGGIE [facility] Txxgke8118 [address] RoadDublin [place] [id number] Potassium [Moles/Vol] 4.0 mmol/L Normal 3.5-5.2 [facility] Work Phone: Comment on above: PATIENT NOT FASTINGP ERFORMED BY: MAGGIE LabJared Qjazvx1279 [address]tr[address] RoadEcu Health [facility]in [place] [id number] Protein [Mass/Vol] 6.3 g/dL Normal 6.0-8.5 [facility] Internal Medicine Work Phone: Comment on above: PATIENT NOT FASTINGP ERFORMED BY: MAGGIE LabJared SanchezMoytcz9794 [address] Roadblin [place] [id number] Sodium [Moles/Vol] 138 mmol/L Normal 134-144 [facility] Internal Medicine Work Phone: Comment on above: PATIENT NOT FASTINGP ERFORMED BY: MAGGIE [facility] Bzepws0470 [address] [facility] [place] [id number] Urea nitrogen [Mass/Vol] 13 mg/dL Normal 8-27 [facility] Work Phone: Comment on above: PATIENT NOT FASTINGP ERFORMED BY: MAGGIE [facility] Yggbon7197 [address] RoadDublin [place] [id number] Urea nitrogen/Creatinine [Mass ratio] 18 mg/mg Normal 11-26 [facility] Work Phone: Comment on above: PATIENT NOT FASTINGP ERFORMED BY: MAGGIE [facility] Vtsssf3018 [address] RoadDublin [place] [id number] TSH (14300)Ordered By: Traci m Postal Carrier on 05-30-2013 TSH Qn 1.390 {uIU/mL} Normal 0.450-4.50 0 [facility] Work Phone: Comment on above: PATIENT NOT FASTINGP ERFORMED BY: MAGGIE [facility]6370 [facility] [id number] CARLA CULTURE-OTHER ([id number])Ord ered By: Occupational Medicine Officer on 11-09-2009 Bacteria identified Respiratory culture Nom (Unsp spec) Final report Normal [facility] Work Phone: Comment on above: PATIENT NOT FASTINGP ERFORMED BY: MAGGIE [facility] Ucglap2042 [facility] [id number] Information: SRC:THRT ADD [id number] Bacteria identified Respiratory culture Nom (Unsp spec) RRF Normal [facility] Work Phone: Comment on above: Routine respiratory marah PATIENT NOT FASTINGP ERFORMED BY: MAGGIE [facility]6370 [facility] [id number] Information: SRC:THRT ADD [id number] Rapid Strep Test, Office (02 148)on 11-09-2009 S. pyogenes Ag EIA Ql (Throat) Negative Normal [facility]; [facility] Work Phone: S. pyogenes Ag IA Ql (Unsp spec) Negative Normal [facility] Work Phone: MICROALBUMINOrdered By: Syst em Postal Carrier on 08-22-2009 Albumin DL <= 20 mg/L (U) [Mass/Vol] 1.2 ug/mL Normal 0.0-17.0 Com[facility] e [facility] Work Phone: Comment on above: PATIENT NOT FASTINGP ERFORMED BY: MAGGIE [facility] [id number] [facility] [id number] Information: [id number] Albumin/Creatinine (U) [Mass ratio] 9.4 {mg/g_creat} Normal 0.0-30.0 [facility] Work Phone: Comment on above: PATIENT NOT FASTINGP ERFORMED BY: MAGGIE [facility] [id number] [facility] [id number] Information: [id number] Creatinine (U) [Mass/Vol] 12.8 mg/dL Abnormal 15.0-278.0 [facility] Work Phone: Comment on above: PATIENT NOT FASTINGP ERFORMED BY: MAGGIE [facility] [id number] [facility] [id number] Information: [id number] ECG B/O W INTERP (MED OFFICE ) [facility] Vital Signs Date Time Vital Sign Value Performing Clinician Facility 02-19-2023 10:32-0400 Body height 160.02 cm [facility]; [facility] Work Phone: 02-19-2023 10:32-0400 Body mass index (BMI) [Ratio] 28.43 kg/m2 [facility]; [facility] Work Phone: 02-19-2023 10:32-0400 Body surface area Derived from formula 1.76 m2 [facility]; [facility] Work Phone: 02-19-2023 10:32-0400 Body temperature 97.4 [degF] [facility]; [facility] Work Phone: 02-19-2023 10:32-0400 Body weight 72.8 kg [facility]; [facility] Work Phone: 02-19-2023 10:32-0400 Diastolic blood pressure 72 mm[Hg] [facility]; [facility] Work Phone: 02-19-2023 10:32-0400 Heart rate 60 /min [facility]; [facility] Work Phone: 02-19-2023 10:32-0400 Respiratory rate 18 /min [facility]; [facility] Work Phone: 02-19-2023 10:32-0400 SaO2% (BldA) [Mass fraction] 95 % [facility]; [facility] Work Phone: 02-19-2023 10:32-0400 Systolic blood pressure 118 mm[Hg] [facility]; [facility] Work Phone: 02-09-2023 11:05-0400 Body height 160.02 cm [facility]; [facility] Work Phone: 02-09-2023 11:05-0400 Body mass index (BMI) [Ratio] 28.43 kg/m2 [facility]; [facility] Work Phone: 02-09-2023 11:05-0400 Body surface area Derived from formula 1.76 m2 [facility]; [facility] Work Phone: 02-09-2023 11:05-0400 Body temperature 97.2 [degF] [facility]; [facility] Work Phone: 02-09-2023 11:05-0400 Body weight 72.8 kg [facility]; [facility] Work Phone: 02-09-2023 11:05-0400 Diastolic blood pressure 70 mm[Hg] [facility]; [facility] Work Phone: 02-09-2023 11:05-0400 Heart rate 61 /min [facility]; [facility] Work Phone: 02-09-2023 11:05-0400 Respiratory rate 18 /min [facility]; [facility] Work Phone: 02-09-2023 11:05-0400 SaO2% (BldA) [Mass fraction] 95 % [facility]; [facility] Work Phone: 02-09-2023 11:05-0400 Systolic blood pressure 132 mm[Hg] Te Richard [facility]; [facility] Work Phone: 09-24-2022 14:00-0400 Body height 160.02 cm [facility]; [facility] Work Phone: 09-24-2022 14:00-0400 Body mass index (BMI) [Ratio] 28.43 kg/m2 [facility]; [facility] Work Phone: 09-24-2022 14:00-0400 Body surface area Derived from formula 1.76 m2 [facility]; [facility] Work Phone: 09-24-2022 14:00-0400 Body temperature 96.9 [degF] [facility]; [facility] Work Phone: 09-24-2022 14:00-0400 Body weight 72.8 kg [facility]; [facility] Work Phone: 09-24-2022 14:00-0400 Diastolic blood pressure 70 mm[Hg] [facility]; [facility] Work Phone: 09-24-2022 14:00-0400 Heart rate 53 /min [facility]; [facility] Work Phone: 09-24-2022 14:00-0400 Respiratory rate 18 /min [facility]; [facility] Work Phone: 09-24-2022 14:00-0400 SaO2% (BldA) [Mass fraction] 99 % [facility]; [facility] Work Phone: 09-24-2022 14:00-0400 Systolic blood pressure 120 mm[Hg] [facility]; [facility] Work Phone: 09-08-2022 14:05-0400 [facility] Work Phone: 09-08-2022 14:05-0400 Body mass index (BMI) [Ratio] 28.7 kg/m2 [facility]; [facility] Work Phone: 09-08-2022 14:05-0400 Body surface area Derived from formula 1.77 m2 [facility]; [facility] Work Phone: 09-08-2022 14:05-0400 Body temperature 97.8 [degF] [facility]; [facility] Work Phone: 09-08-2022 14:05-0400 Body weight 73.48 kg [facility]; [facility] Work Phone: 09-08-2022 14:05-0400 Diastolic blood pressure 80 mm[Hg] [facility]; [facility] Work Phone: 09-08-2022 14:05-0400 Heart rate 69 /min [facility]; [facility] Work Phone: 09-08-2022 14:05-0400 Respiratory rate 16 /min [facility]; [facility] Work Phone: 09-08-2022 14:05-0400 SaO2% (BldA) [Mass fraction] 97 % [facility]; [facility] Work Phone: 09-08-2022 14:05-0400 Systolic blood pressure 122 mm[Hg] [facility]; [facility] Work Phone: 08-01-2022 13:56-0500 Body height 154.[address] Ana Lilia Sagastume Work Phone: [facility] 08-01-2022 13:56-0500 Body mass index (BMI) [Ratio] 30.4 kg/m2 Dr. Ana Lilia Sagastume Work Phone: [facility] 08-01-2022 13:56-0500 Body weight 73.[address] Ana Lilia Sagastume Work Phone: [facility] 08-01-2022 13:56-0500 Diastolic blood pressure 63 mm[Hg] Dr. Ana Lilia Sagastume Work Phone: [facility] 08-01-2022 13:56-0500 Heart rate 64 /min Dr. Ana Lilia Sagastume Work Phone: [facility] 08-01-2022 13:56-0500 Respiratory rate 16 /min Dr. Ana Lilia Sagastume Work Phone: [facility] 08-01-2022 13:56-0500 Systolic blood pressure 116 mm[Hg] Dr. Ana Lilia Sagastume Work Phone: [facility] 07-21-2022 08:48-0500 Diastolic blood pressure 58 mm[Hg] Dr. Ana Lilia Sagastume Work Phone: [facility] 07-21-2022 08:48-0500 Heart rate 64 /min Dr. Ana Lilia Sagastume Work Phone: [facility] 07-21-2022 08:48-0500 Systolic blood pressure 141 mm[Hg] Dr. Ana Lilia Sagastume Work Phone: [facility] 07-21-2022 08:41-0500 Body temperature 98.4 [degF] Dr. Ana Lilia Sagastume Work Phone: [facility] 07-21-2022 08:41-0500 Respiratory rate 16 /min Dr. Ana Lilia Sagastume Work Phone: [facility] 07-21-2022 08:41-0500 SaO2% (BldA) [Mass fraction] 94 % Dr. Ana Lilia Sagastume Work Phone: [facility] 07-20-2022 12:15-0500 Body height 154.[address] Ana Lilia Sagastume Work Phone: [facility] 07-20-2022 12:15-0500 Body mass index (BMI) [Ratio] 30.3 kg/m2 Dr. Ana Lilia Sagastume Work Phone: [facility] 07-20-2022 12:15-0500 Body weight 72.[address] Ana Lilia Sagastume Work Phone: [facility] 07-20-2022 12:01-0500 Body temperature 97.1 [degF] Dr. Ana Lilia Sagastume Work Phone: [facility] 07-20-2022 12:01-0500 Diastolic blood pressure 66 mm[Hg] Dr. Ana Lilia Sagastume Work Phone: [facility] 07-20-2022 12:01-0500 Heart rate 60 /min Dr. Ana Lilia Sagastume Work Phone: [facility] 07-20-2022 12:01-0500 Inhaled oxygen flow rate 2 L/min Dr. Ana Lilia Sagastume Work Phone: [facility] 07-20-2022 12:01-0500 Respiratory rate 20 /min Dr. Ana Lilia Sagastume Work Phone: [facility] 07-20-2022 12:01-0500 SaO2% (BldA) [Mass fraction] 97 % Dr. Ana Lilia Sagastume Work Phone: [facility] 07-20-2022 12:01-0500 Systolic blood pressure 106 mm[Hg] Dr. Ana Lilia Sagastume Work Phone: [facility] 07-20-2022 09:58-0500 Body height 154.[address] Ana Lilia Sagastume Work Phone: [facility] 07-20-2022 09:58-0500 Body mass index (BMI) [Ratio] 30.3 kg/m2 Dr. Ana Lilia Sagastume Work Phone: [facility] 07-20-2022 09:58-0500 Body weight 72.[address] Ana Lilia Sagastume Work Phone: [facility] 07-11-2022 10:35-0500 Body height 156.2 cm Mikel Andrade MD Work Phone: [facility] 07-11-2022 10:35-0500 Body weight 72.58 kg Mikel Andrade MD Work Phone: [facility] 07-11-2022 10:35-0500 Diastolic blood pressure 73 mm[Hg] Mikel Andrade MD Work Phone: [facility] 07-11-2022 10:35-0500 Heart rate 67 /min Mikel Andrade MD Work Phone: [facility] 07-11-2022 10:35-0500 SaO2% (BldA) [Mass fraction] 97 % Mikel Andrade MD Work Phone: [facility] 07-11-2022 10:35-0500 Systolic blood pressure 128 mm[Hg] Mikel Andrade MD Work Phone: [facility] 07-03-2022 15:16-0500 Body height 157.[address] Ana Lilia Sagastume Work Phone: [facility] 06-16-2022 14:31-0500 Body mass index (BMI) [Ratio] 29.2 kg/m2 Dr. Ana Lilia Sagastume Work Phone: [facility] 06-16-2022 14:31-0500 Body weight 72.[address] Ana Lilia Sagastume Work Phone: [facility] 06-14-2022 10:44-0500 Body mass index (BMI) [Ratio] 29 kg/m2 Dr. Ana Lilia Sagastume Work Phone: [facility] 06-14-2022 10:44-0500 Body temperature 97.4 [degF] Dr. Ana Lilia Sagastume Work Phone: [facility] 06-14-2022 10:44-0500 Body weight 72.[address] Ana Lilia Sagastume Work Phone: [facility] 06-14-2022 10:44-0500 Diastolic blood pressure 64 mm[Hg] Dr. Ana Lilia Sagastume Work Phone: [facility] 06-14-2022 10:44-0500 Heart rate 64 /min Dr. Ana Lilia Sagastume Work Phone: [facility] 06-14-2022 10:44-0500 Respiratory rate 16 /min Dr. Ana Lilia Sagastume Work Phone: [facility] 06-14-2022 10:44-0500 SaO2% (BldA) [Mass fraction] 99 % Dr. Ana Lilia Sagastume Work Phone: [facility] 06-14-2022 10:44-0500 Systolic blood pressure 132 mm[Hg] Dr. Ana Lilia Sagastume Work Phone: [facility] 06-04-2022 12:18-0500 Body height 160.02 cm Ana Edwards MA [facility]; [facility] Work Phone: 06-04-2022 12:18-0500 Body mass index (BMI) [Ratio] 28.34 kg/m2 Ana Edwards MA [facility]; [facility] Work Phone: 06-04-2022 12:18-0500 Body surface area Derived from formula 1.76 m2 Ana Edwards MA [facility]; [facility] Work Phone: 06-04-2022 12:18-0500 Body temperature 96.4 [degF] Ana Edwards MA [facility]; [facility] Work Phone: 06-04-2022 12:18-0500 Body weight 72.58 kg Ana Edwards MA [facility]; [facility] Work Phone: 06-04-2022 12:18-0500 Diastolic blood pressure 80 mm[Hg] Ana Jerry MA [facility]; [facility] Work Phone: 06-04-2022 12:18-0500 Heart rate 72 /min Ana Edwards MA [facility]; [facility] Work Phone: 06-04-2022 12:18-0500 Respiratory rate 18 /min Ana Edwards MA [facility]; [facility] Work Phone: 06-04-2022 12:18-0500 SaO2% (BldA) [Mass fraction] 96 % Ana Edwards MA [facility]; [facility] Work Phone: 06-04-2022 12:18-0500 Systolic blood pressure 142 mm[Hg] Ana Edwards MA [facility]; [facility] Work Phone: 05-12-2022 14:55-0500 Body height 160.02 cm [facility]; [facility] Work Phone: 05-12-2022 14:55-0500 Body mass index (BMI) [Ratio] 28.34 kg/m2 [facility]; [facility] Work Phone: 05-12-2022 14:55-0500 Body surface area Derived from formula 1.76 m2 [facility]; [facility] Work Phone: 05-12-2022 14:55-0500 Body temperature 97.9 [degF] [facility]; [facility] Work Phone: 05-12-2022 14:55-0500 Body weight 72.58 kg [facility]; [facility] Work Phone: 05-12-2022 14:55-0500 Diastolic blood pressure 66 mm[Hg] [facility]; [facility] Work Phone: 05-12-2022 14:55-0500 Heart rate 59 /min [facility]; [facility] Work Phone: 05-12-2022 14:55-0500 Respiratory rate 16 /min [facility]; [facility] Work Phone: 05-12-2022 14:55-0500 SaO2% (BldA) [Mass fraction] 97 % [facility]; [facility] Work Phone: 05-12-2022 14:55-0500 Systolic blood pressure 118 mm[Hg] [facility]; [facility] Work Phone: 05-03-2022 09:45-0500 Heart rate 74 /min Dr. Ana Lilia Sagastume Work Phone: [facility] 05-03-2022 09:40-0500 Body temperature 98.1 [degF] Dr. Ana Lilia Sagastume Work Phone: [facility] 05-03-2022 09:40-0500 Diastolic blood pressure 49 mm[Hg] Dr. Ana Lilia Sagastume Work Phone: [facility] 05-03-2022 09:40-0500 Respiratory rate 18 /min Dr. Ana Lilia Sagastume Work Phone: [facility] 05-03-2022 09:40-0500 SaO2% (BldA) [Mass fraction] 98 % Dr. Ana Lilia Sagastume Work Phone: [facility] 05-03-2022 09:40-0500 Systolic blood pressure 106 mm[Hg] Dr. Ana Lilia Sagastume Work Phone: [facility] 05-03-2022 03:30-0500 Body height 157.[address] Ana Lilia Sagastume Work Phone: [facility] Work Phone: 05-03-2022 03:30-0500 Body mass index (BMI) [Ratio] 28.3 kg/m2 Dr. Ana Lilia Sagastume Work Phone: [facility] 05-03-2022 03:30-0500 Body weight 70.[address] Ana Lilia Sagastume Work Phone: [facility] 05-03-2022 03:04-0500 Diastolic blood pressure 88 mm[Hg] Dr. Ana Lilia Sagastume Work Phone: [facility] Work Phone: 05-03-2022 03:04-0500 Heart rate 137 /min Dr. Ana Lilia Sagastume Work Phone: [facility] Work Phone: 05-03-2022 03:04-0500 Respiratory rate 23 /min Dr. Ana Lilia Sagastume Work Phone: [facility] Work Phone: 05-03-2022 03:04-0500 SaO2% (BldA) [Mass fraction] 97 % Dr. Ana Lilia Sagastume Work Phone: [facility] Work Phone: 05-03-2022 03:04-0500 Systolic blood pressure 113 mm[Hg] Dr. Ana Lilia Sagastume Work Phone: [facility] Work Phone: 05-03-2022 02:57-0500 Body temperature 97.2 [degF] Dr. Ana Lilia Sagastume Work Phone: [facility] Work Phone: 05-03-2022 01:26-0500 Body height 154.[address] Ana Lilia Sagastume Work Phone: [facility] Work Phone: 05-03-2022 01:26-0500 Body mass index (BMI) [Ratio] 29 kg/m2 Dr. Ana Lilia Sagastume Work Phone: [facility] Work Phone: 05-03-2022 01:26-0500 Body weight 69.[address] Ana Lilia Sagastume Work Phone: [facility] Work Phone: 03-19-2022 13:01-0400 Body mass index (BMI) [Ratio] 28 kg/m2 Dr. Ana Lilia Sagastume Work Phone: [facility] 03-19-2022 13:01-0400 Body weight 69.[address] Ana Lilia Sagastume Work Phone: [facility] 03-19-2022 13:01-0400 Diastolic blood pressure 61 mm[Hg] Dr. Ana Lilia Sagastume Work Phone: [facility] 03-19-2022 13:01-0400 Heart rate 58 /min Dr. Ana Lilia Sagastume Work Phone: [facility] 03-19-2022 13:01-0400 Respiratory rate 16 /min Dr. Ana Lilia Sagastume Work Phone: [facility] 03-19-2022 13:01-0400 Systolic blood pressure 113 mm[Hg] Dr. Ana Lilia Sagastume Work Phone: [facility] 03-13-2022 12:25-0400 Body height 160.02 cm Bruno Ferris LPN [facility]; [facility] Work Phone: 03-13-2022 12:25-0400 Body mass index (BMI) [Ratio] 27.3 kg/m2 Bruno Ferris LPN [facility]; [facility] Work Phone: 03-13-2022 12:25-0400 Body surface area Derived from formula 1.73 m2 Bruno Ferris LPN [facility]; [facility] Work Phone: 03-13-2022 12:25-0400 Body weight 69.91 kg Bruno Ferris LPN [facility]; [facility] Work Phone: 03-13-2022 12:25-0400 Diastolic blood pressure 70 mm[Hg] Bruno Ferris LPN [facility]; [facility] Work Phone: 03-13-2022 12:25-0400 Heart rate 64 /min Bruno Ferris LPN [facility]; [facility] Work Phone: 03-13-2022 12:25-0400 Respiratory rate 16 /min Bruno Barrington [facility]; [facility] Work Phone: 03-13-2022 12:25-0400 SaO2% (BldA) [Mass fraction] 98 % Bruno Barrington [facility]; [facility] Work Phone: 03-13-2022 12:25-0400 Systolic blood pressure 132 mm[Hg] Bruno Ferris [facility]; [facility] Work Phone: 03-11-2022 23:39-0400 Diastolic blood pressure 62 mm[Hg] Dr. Ana Lilia Sagastume Work Phone: [facility] Work Phone: 03-11-2022 23:39-0400 Heart rate 74 /min Dr. Ana Lilia Sagastume Work Phone: [facility] Work Phone: 03-11-2022 23:39-0400 Respiratory rate 15 /min Dr. Ana Lilia Sagastume Work Phone: [facility] Work Phone: 03-11-2022 23:39-0400 SaO2% (BldA) [Mass fraction] 99 % Dr. Ana Lilia Sagastume Work Phone: [facility] Work Phone: 03-11-2022 23:39-0400 Systolic blood pressure 105 mm[Hg] Dr. Ana Lilia Sagastume Work Phone: [facility] Work Phone: 03-11-2022 21:00-0400 Body mass index (BMI) [Ratio] 28.3 kg/m2 Dr. Ana Lilia Sagastume Work Phone: [facility] Work Phone: 03-11-2022 21:00-0400 Body temperature 97 [degF] Dr. Ana Lilia Sagastume Work Phone: [facility] Work Phone: 03-11-2022 21:00-0400 Body weight 70.[address] Ana Lliia Sagastume Work Phone: [facility] Work Phone: 05-20-2021 10:35-0500 Body height 160.02 cm Jacqui Slarb [employer] SUPER[employer] [facility]; [facility] Work Phone: 05-20-2021 10:35-0500 Body mass index (BMI) [Ratio] 27.3 kg/m2 Jacqui Slarb [employer] SUPER[employer] [facility]; [facility] Work Phone: 05-20-2021 10:35-0500 Body surface area Derived from formula 1.73 m2 Jacqui Slarb [employer] SUPERVIS[employer] [facility]; [facility] Work Phone: 05-20-2021 10:35-0500 Body temperature 97.1 [degF] Jacqui Slarb [employer]LEB[employer] SUPERVISOR [facility]; [facility] Work Phone: 05-20-2021 10:35-0500 Body weight 69.91 kg Jacqui Slarb [employer]LEB[employer] SUPERVISOR [facility]; [facility] Work Phone: 05-20-2021 10:35-0500 Diastolic blood pressure 82 mm[Hg] Jacqui Slarb [employer]LEB[employer] SUPERVISOR [facility]; [facility] Work Phone: 05-20-2021 10:35-0500 Heart rate 71 /min Jacqui Slarb [employer] SUPER[employer] [facility]; [facility] Work Phone: 05-20-2021 10:35-0500 Respiratory rate 16 /min Jacqui Slarb [employer] SUPER[employer] [facility]; [facility] Work Phone: 05-20-2021 10:35-0500 SaO2% (BldA) [Mass fraction] 98 % Jacqui Slarb [employer] SUPER[employer] [facility]; [facility] Work Phone: 05-20-2021 10:35-0500 Systolic blood pressure 142 mm[Hg] Jacqui Slarb [employer]LEB[employer] SUPERVISOR [facility]; [facility] Work Phone: 05-02-2021 09:05-0500 Body height 160.02 cm Sharonmisha Marcelino JARVIS [facility] Work Phone: 05-02-2021 09:05-0500 Body mass index (BMI) [Ratio] 26.95 kg/m2 Sharonmisha Marcelino J[facility]VIS [facility] Work Phone: 05-02-2021 09:05-0500 Body surface area Derived from formula 1.72 m2 Sharonmisha Marcelino J[facility]VIS [facility] Work Phone: 05-02-2021 09:05-0500 Body temperature 97.8 [degF] Sharonmisha Marcelino J[facility]VIS [facility] Work Phone: 05-02-2021 09:05-0500 Body weight 69 kg Sharon Chari [facility] Work Phone: 05-02-2021 09:05-0500 Diastolic blood pressure 72 mm[Hg] Sharon Chari [facility] Work Phone: 05-02-2021 09:05-0500 Heart rate 60 /min Sharonmisha Marcelino [facility] Work Phone: 05-02-2021 09:05-0500 Respiratory rate 16 /min Sharon Chari [facility] Work Phone: 05-02-2021 09:05-0500 SaO2% (BldA) [Mass fraction] 97 % Sharon Chari LPN [facility]; [facility] Work Phone: 05-02-2021 09:05-0500 Systolic blood pressure 110 mm[Hg] Sharon Chari LPN [facility]; [facility] Work Phone: 04-24-2021 09:10-0500 Body height 160.02 cm Lily Hathaway CNP Work Phone: [facility] Work Phone: 04-24-2021 09:10-0500 Body mass index (BMI) [Ratio] 27.28 kg/m2 Lily Hathaway CNP Work Phone: [facility]; [facility] Work Phone: 04-24-2021 09:10-0500 Body surface area Derived from formula 1.73 m2 Lily Hathaway CNP Work Phone: [facility]; [facility] Work Phone: 04-24-2021 09:10-0500 Body weight 69.85 kg Liyl Hathaway CNP Work Phone: [facility]; [facility] Work Phone: 04-24-2021 09:10-0500 SaO2% (BldA) [Mass fraction] 96 % iLly Hathaway CNP Work Phone: [facility]; [facility] Work Phone: 04-16-2021 13:48-0500 Body temperature 97.6 [degF] Sharon Chari PHLEBOTOMY SUPERVISOR [facility]; [facility] Work Phone: 04-16-2021 13:48-0500 Body weight 69.85 kg Sharon Chari PHLEBOTOMY SUPERVISOR [facility]; [facility] Work Phone: 07-23-2020 13:20-0500 Body Temperature 97.7 [degF] Kaitlin Deras [facility]; [facility] Work Phone: Comment on above: Method: Infrared pt reported vitals 07-23-2020 13:20-0500 Body weight 66.68 kg Kaitlin Gravius [facility]; [facility] Work Phone: Comment on above: pt reported vitals 07-23-2020 13:20-0500 BP Diastolic 71 mm[Hg] Kaitlin Gravius [facility]; [facility] Work Phone: Comment on above: Patient Position: Sitting; Cuff Location : Left Arm; Cuff Size: Standard pt reported vitals 07-23-2020 13:20-0500 BP Systolic 139 mm[Hg] Kaitlin Deras [facility]; [facility] Work Phone: Comment on above: Patient Position: Sitting; Cuff Location : Left Arm; Cuff Size: Standard pt reported vitals 07-23-2020 13:20-0500 Pulse (Heart Rate) 74 /min Kaitlin Deras [facility]; [facility] Work Phone: Comment on above: Pattern: Regular pt reported vitals 06-28-2020 10:58-0500 Body weight 66.68 kg Sharon Marcelino [facility]; [facility] Work Phone: 06-28-2020 10:58-0500 BP Diastolic 80 mm[Hg] Sharon Marcelino [facility]; [facility] Work Phone: Comment on above: Patient Position: Sitting; Cuff Location : Left Arm; Cuff Size: Standard 06-28-2020 10:58-0500 BP Systolic 149 mm[Hg] Sharon Marcelino PHLEBOTOMY SUPERVISOR [facility]; [facility] Work Phone: Comment on above: Patient Position: Sitting; Cuff Location : Left Arm; Cuff Size: Standard 06-28-2020 10:58-0500 Pulse (Heart Rate) 75 /min Sharon Marcelino LPN [facility]; [facility] Work Phone: Comment on above: Pattern: Regular 06-12-2020 08:41-0500 Body Temperature 97.6 [degF] Anna Aviles [facility]; [facility] Work Phone: Comment on above: Method: Thermal Scan 06-12-2020 08:41-0500 Body weight 65.77 kg Anna [facility]; [facility] Work Phone: 06-12-2020 08:41-0500 BP Diastolic 70 mm[Hg] Anna [facility]; [facility] Work Phone: Comment on above: Patient Position: Sitting; Cuff Location : Left Arm; Cuff Size: Standard 06-12-2020 08:41-0500 BP Systolic 134 mm[Hg] [facility]; [facility] Work Phone: Comment on above: Patient Position: Sitting; Cuff Location : Left Arm; Cuff Size: Standard 06-12-2020 08:41-0500 Pulse (Heart Rate) 83 /min Anna Aviles [facility] Comprehensiv e Internal Medicine; [facility] Work Phone: Comment on above: Pattern: Regular 06-12-2020 08:41-0500 Pulse Oximetry 98 % Ana Lilia Sagastume [facility]; [facility] Work Phone: Comment on above: Room air 06-12-2020 08:41-0500 Respiratory Rate 16 /min [facility]; [facility] Work Phone: Comment on above: Pattern: Unlabored 06-12-2020 08:41-0500 SaO2% (BldA) [Mass fraction] 98 % [facility]; [facility] Work Phone: 05-10-2020 09:15-0500 Body Temperature 97.3 [degF] Symone Olivarez [facility]; [facility] Work Phone: 05-10-2020 09:15-0500 Body weight 63.96 kg Symone Olivarez [facility]; [facility] Work Phone: 05-10-2020 09:15-0500 BP Diastolic 70 mm[Hg] Symone Olivarez [facility]; [facility] Work Phone: Comment on above: Patient Position: Sitting; Cuff Location : Left Arm; Cuff Size: Standard 05-10-2020 09:15-0500 BP Systolic 135 mm[Hg] Symone Olivarez [facility]; [facility] Work Phone: Comment on above: Patient Position: Sitting; Cuff Location : Left Arm; Cuff Size: Standard 05-10-2020 09:15-0500 Pulse (Heart Rate) 70 /min Symone Olivarez SEW OUT OPERATOR Comprehensi ve [facility]; [facility] Work Phone: Comment on above: Pattern: Regular 04-12-2020 15:04-0500 Body Temperature 97.2 [degF] Kaitlin Deras [facility] Work Phone: Comment on above: Method: Infrared 04-12-2020 15:04-0500 Body weight 64.41 kg Kaitlin Deras [facility] Work Phone: 04-12-2020 15:04-0500 BP Diastolic 84 mm[Hg] Kaitlin Deras [facility] Internal Medicine Work Phone: Comment on above: Patient Position: Sitting; Cuff Location : Left Arm; Cuff Size: Standard 04-12-2020 15:04-0500 BP Systolic 134 mm[Hg] Kaitlin Deras [facility] Internal Medicine Work Phone: Comment on above: Patient Position: Sitting; Cuff Location : Left Arm; Cuff Size: Standard 04-12-2020 15:04-0500 Pulse (Heart Rate) 94 /min Kaitlin Deras [facility] Work Phone: Comment on above: Pattern: Regular 04-12-2020 15:04-0500 Pulse Oximetry 98 % Ana Lilia Keith [facility] Internal Medicine Work Phone: Comment on above: Room air 04-12-2020 15:04-0500 Respiratory Rate 20 /min Kaitlin Deras [facility] Internal Medicine Work Phone: Comment on above: Pattern: Unlabored 04-12-2020 15:04-0500 SaO2% (BldA) [Mass fraction] 98 % Kaitlin Deras [facility]; [facility] Work Phone: 01-05-2020 14:23-0400 Body weight 64.41 kg Kaitlin Deras [facility] Work Phone: 12-15-2019 10:50-0400 BMI (Body Mass Index) 25.69 kg/m2 Sharon Marcelino LPN [facility] Internal Medicine Work Phone: 12-15-2019 10:50-0400 Body Temperature 97.5 [degF] Sharon Marcelino LPN [facility] Work Phone: Comment on above: Method: Temporal 12-15-2019 10:50-0400 Body weight 65.77 kg Sharon Marcelino LPN [facility] Internal Medicine Work Phone: 12-15-2019 10:50-0400 BP Diastolic 84 mm[Hg] Sharon Chari PHLEBOTOMY SUPERVISOR [facility] Work Phone: Comment on above: Patient Position: Sitting; Cuff Location : Left Arm; Cuff Size: Standard 12-15-2019 10:50-0400 BP Systolic 128 mm[Hg] Sharon Marcelino PHLEBOTOMY SUPERVISOR [facility] Internal Medicine Work Phone: Comment on above: Patient Position: Sitting; Cuff Location : Left Arm; Cuff Size: Standard 12-15-2019 10:50-0400 BSA (Body Surface Area) 1.69 m2 Sharon Marcelino PHLEBOTOMY SUPERVISOR [facility] Internal Medicine Work Phone: 12-15-2019 10:50-0400 Height 160.02 cm Sharon Marcelino LPN [facility] Internal Medicine Work Phone: 12-15-2019 10:50-0400 Pulse (Heart Rate) 60 /min Sharon Marcel[facility] Work Phone: Comment on above: Pattern: Regular 12-15-2019 10:50-0400 Pulse Oximetry 97 % Ana Lilia Antonioon [facility] Internal Medicine Work Phone: Comment on above: Room air 12-15-2019 10:50-0400 Respiratory Rate 16 /min Sharon Marcelino LPN [facility] Internal Medicine Work Phone: Comment on above: Pattern: Unlabored 12-15-2019 10:50-0400 SaO2% (BldA) [Mass fraction] 97 % Sharonmisha Marcelino PHLEBOTOMY SUPERVISOR [facility] Internal Medicine; [facility] Work Phone: 12-01-2019 09:42-0400 BMI (Body Mass Index) 25.15 kg/m2 Kaitlin Deras [facility] Internal Medicine Work Phone: 12-01-2019 09:42-0400 Body Temperature 96.9 [degF] Kaitlin Deras [facility] Internal Medicine Work Phone: Comment on above: Method: Infrared 12-01-2019 09:42-0400 Body weight 64.41 kg Kaitlin Deras [facility] Work Phone: 12-01-2019 09:42-0400 BP Diastolic 94 mm[Hg] Kaitlin Deras [facility] Work Phone: Comment on above: Patient Position: Sitting; Cuff Location : Left Arm; Cuff Size: Standard 12-01-2019 09:42-0400 BP Systolic 144 mm[Hg] Kaitlin Deras [facility] Internal Medicine Work Phone: Comment on above: Patient Position: Sitting; Cuff Location : Left Arm; Cuff Size: Standard 12-01-2019 09:42-0400 BSA (Body Surface Area) 1.67 m2 Kaitlin Deras [facility] Internal Medicine Work Phone: 12-01-2019 09:42-0400 Height 160.02 cm Kaitlin Deras [facility] Internal Medicine Work Phone: 12-01-2019 09:42-0400 Pulse (Heart Rate) 66 /min Kaitlin Deras [facility] Internal Medicine Work Phone: Comment on above: Pattern: Regular 12-01-2019 09:42-0400 Pulse Oximetry 98 % Ana Lilia Keith [facility] Internal Medicine Work Phone: Comment on above: Room air 12-01-2019 09:42-0400 Respiratory Rate 16 /min Kaitlin Deras [facility] Internal Medicine Work Phone: Comment on above: Pattern: Unlabored 12-01-2019 09:42-0400 SaO2% (BldA) [Mass fraction] 98 % Kaitlin Deras [facility]; [facility] Work Phone: 11-07-2019 11:06-0400 BMI (Body Mass Index) 26.04 kg/m2 Kaitlin Deras [facility] Internal Medicine Work Phone: 11-07-2019 11:06-0400 Body Temperature 97.5 [degF] Kaitlin Deras [facility] Internal Medicine Work Phone: Comment on above: Method: Temporal 11-07-2019 11:06-0400 Body weight 66.68 kg Kaitlin Deras [facility] Internal Medicine Work Phone: 11-07-2019 11:06-0400 BP Diastolic 82 mm[Hg] Kaitlin Deras [facility] Internal Medicine Work Phone: Comment on above: Patient Position: Sitting; Cuff Location : Left Arm; Cuff Size: Standard 11-07-2019 11:06-0400 BP Systolic 148 mm[Hg] Kaitlin Deras [facility] Internal Medicine Work Phone: Comment on above: Patient Position: Sitting; Cuff Location : Left Arm; Cuff Size: Standard 11-07-2019 11:06-0400 BSA (Body Surface Area) 1.7 m2 Kaitlin Deras [facility] Internal Medicine Work Phone: 11-07-2019 11:06-0400 Height 160.02 cm Kaitlin Deras [facility] Internal Medicine Work Phone: 11-07-2019 11:06-0400 Pulse (Heart Rate) 81 /min Kaitlin Deras [facility] Internal Medicine Work Phone: Comment on above: Pattern: Regular 11-07-2019 11:06-0400 Pulse Oximetry 97 % Ana Lilia Keith [facility] Internal Medicine Work Phone: Comment on above: Room air 11-07-2019 11:06-0400 Respiratory Rate 18 /min Kaitlin Deras [facility] Internal Medicine Work Phone: Comment on above: Pattern: Unlabored 11-07-2019 11:06-0400 SaO2% (BldA) [Mass fraction] 97 % Kaitlin Deras [facility]; [facility] Work Phone: 11-01-2019 11:50-0400 BMI (Body Mass Index) 25.86 kg/m2 Bruno Ferris LPN [facility] Internal [facility] Work Phone: 11-01-2019 11:50-0400 Body Temperature 97.6 [degF] Bruno Ferris LPN [facility] Internal Medicine Work Phone: Comment on above: Method: Temporal 11-01-2019 11:50-0400 Body weight 66.23 kg Bruno Ferris LPN [facility] Work Phone: 11-01-2019 11:50-0400 BP Diastolic 72 mm[Hg] Bruno Ferris PHLEBOTOMY SUPERVISOR [facility] Internal Medicine Work Phone: Comment on above: Patient Position: Sitting; Cuff Location : Left Arm; Cuff Size: Standard 11-01-2019 11:50-0400 BP Systolic 116 mm[Hg] Bruno Ferris [facility] Internal Medicine Work Phone: Comment on above: Patient Position: Sitting; Cuff Location : Left Arm; Cuff Size: Standard 11-01-2019 11:50-0400 BSA (Body Surface Area) 1.69 m2 Bruno Ferris PHLEBOTOMY SUPERVISOR [facility] Internal Medicine Work Phone: 11-01-2019 11:50-0400 Height 160.02 cm Bruno Ferris [facility] Internal Medicine Work Phone: 11-01-2019 11:50-0400 Pulse (Heart Rate) 83 /min Bruno Ferris [facility] Comprehensiv e Internal Medicine Work Phone: Comment on above: Pattern: Regular 11-01-2019 11:50-0400 Pulse Oximetry 98 % Ana Lilia Sagastume [facility] Internal Medicine Work Phone: Comment on above: Room air 11-01-2019 11:50-0400 Respiratory Rate 16 /min Bruno Ferris [facility] Internal Medicine Work Phone: Comment on above: Pattern: Unlabored 11-01-2019 11:50-0400 SaO2% (BldA) [Mass fraction] 98 % Bruno Ferris [facility]; [facility] Work Phone: 04-07-2019 10:02-0500 BMI (Body Mass Index) 25.88 kg/m2 Gisel Negrete RN [facility] Work Phone: 04-07-2019 10:02-0500 Body weight 66.28 kg Gisel Negrete RN [facility] Work Phone: 04-07-2019 10:02-0500 BP Diastolic 62 mm[Hg] Gisel Negrete RN [facility] Work Phone: Comment on above: Patient Position: Sitting; Cuff Location : Left Arm; Cuff Size: Large 04-07-2019 10:02-0500 BP Systolic 120 mm[Hg] Gisel Negrete RN [facility] Work Phone: Comment on above: Patient Position: Sitting; Cuff Location : Left Arm; Cuff Size: Large 04-07-2019 10:02-0500 BSA (Body Surface Area) 1.69 m2 Gisel Negrete RN [facility] Work Phone: 04-07-2019 10:02-0500 Height 160.02 cm Gisel Negrete RN [facility] Work Phone: 04-07-2019 10:02-0500 Pulse (Heart Rate) 61 /min Gisel Negrete RN [facility] Work Phone: Comment on above: Pattern: Regular 04-07-2019 10:02-0500 Pulse Oximetry 98 % Ana Lilia Sagastume [facility] Work Phone: Comment on above: Room air 04-07-2019 10:02-0500 Respiratory Rate 18 /min Gisel Negrete RN [facility] Work Phone: Comment on above: Pattern: Unlabored 04-07-2019 10:02-0500 SaO2% (BldA) [Mass fraction] 98 % Gisel Negrete RN [facility]; [facility] Work Phone: 02-03-2019 09:52-0400 BMI (Body Mass Index) 26.42 kg/m2 Jacqui Slarb JARVIS [facility] Work Phone: 02-03-2019 09:52-0400 Body weight 67.64 kg Jacqui Slarb PHLEBOTOMY SUPERVISOR [facility] Internal Medicine Work Phone: 02-03-2019 09:52-0400 BP Diastolic 84 mm[Hg] Jacqui Slarb PHLEBOTOMY SUPERVISOR [facility] Work Phone: Comment on above: Patient Position: Sitting; Cuff Location : Left Arm; Cuff Size: Standard 02-03-2019 09:52-0400 BP Systolic 144 mm[Hg] Jacqui Slarb PHLEBOTOMY SUPERVISOR [facility] Work Phone: Comment on above: Patient Position: Sitting; Cuff Location : Left Arm; Cuff Size: Standard 02-03-2019 09:52-0400 BSA (Body Surface Area) 1.71 m2 Jacqui Macias PHLEBOTOMY SUPERVISOR [facility] Work Phone: 02-03-2019 09:52-0400 Height 160.02 cm Jacqui Mcaias PHLEBOTOMY SUPERVISOR [facility] Work Phone: 02-03-2019 09:52-0400 Pulse (Heart Rate) 90 /min Jacqui Macias PHLEBOTOMY SUPERVISOR Comprehens[facility] Work Phone: Comment on above: Pattern: Regular 02-03-2019 09:52-0400 Pulse Oximetry 98 % Ana Lilia Sagastume [facility] Work Phone: Comment on above: Room air 02-03-2019 09:52-0400 Respiratory Rate 17 /min Jacqui Macias PHLEBOTOMY SUPERVISOR [facility] Work Phone: Comment on above: Pattern: Unlabored 02-03-2019 09:52-0400 SaO2% (BldA) [Mass fraction] 98 % Jacqui Slahyun DIXONN [facility]; [facility] Work Phone: 12-30-2018 09:55-0400 BMI (Body Mass Index) 27.52 kg/m2 Gisel Negrete RN [facility] Work Phone: 12-30-2018 09:55-0400 Body weight 70.48 kg Gisel Negrete RN [facility] Work Phone: 12-30-2018 09:55-0400 BP Diastolic 80 mm[Hg] Gisel Negrete RN [facility] Work Phone: Comment on above: Patient Position: Sitting; Cuff Location : Left Arm; Cuff Size: Large 12-30-2018 09:55-0400 BP Systolic 148 mm[Hg] Gisel Negrete RN [facility] Work Phone: Comment on above: Patient Position: Sitting; Cuff Location : Left Arm; Cuff Size: Large 12-30-2018 09:55-0400 BSA (Body Surface Area) 1.74 m2 Gisel Negrete RN [facility] Work Phone: 12-30-2018 09:55-0400 Height 160.02 cm Gisel Negrete RN [facility] Work Phone: 12-30-2018 09:55-0400 Pulse (Heart Rate) 92 /min Gisel Negrete RN [facility] Work Phone: Comment on above: Pattern: Regular 12-30-2018 09:55-0400 Pulse Oximetry 98 % Ana Lilia Sagasutme [facility] Work Phone: Comment on above: Room air 12-30-2018 09:55-0400 Respiratory Rate 18 /min Gisel Negrete RN [facility] Work Phone: Comment on above: Pattern: Unlabored 12-30-2018 09:55-0400 SaO2% (BldA) [Mass fraction] 98 % Gisel Negrete RN [facility]; [facility] Work Phone: 12-15-2016 14:26-0400 BMI (Body Mass Index) 26.57 kg/m2 Naima Morales RN [facility] Internal Medicine Work Phone: 12-15-2016 14:26-0400 Body Temperature 96.4 [degF] Naima Morales RN [facility] Work Phone: Comment on above: Method: Temporal 12-15-2016 14:26-0400 Body weight 68.04 kg Naima Morales RN [facility] Work Phone: 12-15-2016 14:26-0400 BP Diastolic 78 mm[Hg] Naima Morales RN [facility] Work Phone: Comment on above: Patient Position: Sitting; Cuff Location : Left Arm; Cuff Size: Standard 12-15-2016 14:26-0400 BP Systolic 124 mm[Hg] Naima Morales RN [facility] Work Phone: Comment on above: Patient Position: Sitting; Cuff Location : Left Arm; Cuff Size: Standard 12-15-2016 14:26-0400 BSA (Body Surface Area) 1.71 m2 Naima Morales RN [facility] Work Phone: 12-15-2016 14:26-0400 Height 160.02 cm Naima Morales RN [facility] Work Phone: 12-15-2016 14:26-0400 Pulse (Heart Rate) 87 /min Naima Morales RN [facility] Work Phone: Comment on above: Pattern: Regular 12-15-2016 14:26-0400 Pulse Oximetry 97 % Ana Lilia Sagastume [facility] Work Phone: Comment on above: Room air 12-15-2016 14:26-0400 Respiratory Rate 16 /min Naima Morales RN [facility] Work Phone: Comment on above: Pattern: Unlabored 12-15-2016 14:26-0400 SaO2% (BldA) [Mass fraction] 97 % Naima Morales RN [facility]; [facility] Work Phone: 02-26-2016 11:54-0400 BMI (Body Mass Index) 25.93 kg/m2 Jacqui Slarb PHLEBOTOMY SUPERVISOR [facility] Work Phone: 02-26-2016 11:54-0400 Body Temperature 97.4 [degF] Jacqui Slarb PHLEBOTOMY SUPERVISOR [facility] Internal Medicine Work Phone: 02-26-2016 11:54-0400 Body weight 66.4 kg Jacqui Slarb PHLEBOTOMY SUPERVISOR [facility] Work Phone: 02-26-2016 11:54-0400 BP Diastolic 64 mm[Hg] Jacqui Slarb PHLEBOTOMY SUPERVISOR [facility] Work Phone: Comment on above: Patient Position: Sitting; Cuff Location : Left Arm; Cuff Size: Standard 02-26-2016 11:54-0400 BP Systolic 108 mm[Hg] Jacqui Slarb PHLEBOTOMY SUPERVISOR [facility] Work Phone: Comment on above: Patient Position: Sitting; Cuff Location : Left Arm; Cuff Size: Standard 02-26-2016 11:54-0400 BSA (Body Surface Area) 1.69 m2 Jacqui Slarb PHLEBOTOMY SUPERVISOR [facility] Work Phone: 02-26-2016 11:54-0400 Height 160.02 cm Jacqui Slarb PHLEBOTOMY SUPERVISOR [facility] Work Phone: 02-26-2016 11:54-0400 Pulse (Heart Rate) 86 /min Jacqui Slarb PHLEBOTOMY SUPERVISOR Comprehens[facility] e Internal Medicine Work Phone: Comment on above: Pattern: Regular 02-26-2016 11:54-0400 Pulse Oximetry 97 % Ana Lilia Sagastume [facility] Internal Medicine Work Phone: Comment on above: Room air 02-26-2016 11:54-0400 Respiratory Rate 18 /min Jacqui Macias LPN [facility] Internal Medicine Work Phone: Comment on above: Pattern: Unlabored 02-26-2016 11:54-0400 SaO2% (BldA) [Mass fraction] 97 % Jacqui Macias LPN [facility]; [facility] Work Phone: 12-20-2015 11:31-0400 BMI (Body Mass Index) 25.93 kg/m2 Jacqui Macias LPN [facility] Internal Medicine Work Phone: Comment on above: Hearing WNLVision screening with [place] a through eye 12-20-2015 11:31-0400 Body Temperature 97.6 [degF] Jacqui Macias LPN [facility] Work Phone: Comment on above: Hearing WNLVision screening with [place] a through eye 12-20-2015 11:31-0400 Body weight 66.4 kg Jacqui Macias LPN [facility] Internal Medicine Work Phone: Comment on above: Hearing WNLVision screening with [place] a through eye 12-20-2015 11:31-0400 BP Diastolic 76 mm[Hg] Jacqui Macias LPN [facility] Work Phone: Comment on above: Patient Position: Sitting; Cuff Location : Left Arm; Cuff Size: Standard Hearing WNLVision sc reening with Glaucoma through eye 12-20-2015 11:31-0400 BP Systolic 114 mm[Hg] Jacqui Macias LPN [facility] Work Phone: Comment on above: Patient Position: Sitting; Cuff Location : Left Arm; Cuff Size: Standard Hearing WNLVision sc reening with Glaucoma through eye 12-20-2015 11:31-0400 BSA (Body Surface Area) 1.69 m2 Jacqui Macias LPN [facility] Work Phone: Comment on above: Hearing WNLVision screening with [place] a through eye 12-20-2015 11:31-0400 Height 160.02 cm Jacqui Macias LPN [facility] Work Phone: Comment on above: Hearing WNLVision screening with [place] a through eye 12-20-2015 11:31-0400 Pulse (Heart Rate) 76 /min Jacqui Macias LPN [facility] Work Phone: Comment on above: Pattern: Regular Hearing WNLVision sc reening with Glaucoma through eye 12-20-2015 11:31-0400 Pulse Oximetry 98 % Ana Lilia Sagastume [facility] Work Phone: Comment on above: Room air Hearing WNLVision sc reening with Glaucoma through eye 12-20-2015 11:31-0400 Respiratory Rate 17 /min Jacqui Macias LPN [facility] Work Phone: Comment on above: Pattern: Unlabored Hearing WNLVision sc reening with Glaucoma through eye 12-20-2015 11:31-0400 SaO2% (BldA) [Mass fraction] 98 % Jacqui Macias LPN [facility]; [facility] Work Phone: 10-18-2015 10:140400 BMI (Body Mass Index) 26.75 kg/m2 Gisel Negrete RN [facility] Work Phone: 10-18-2015 10:140400 Body weight 68.49 kg Gisel Negrete RN [facility] Work Phone: 10-18-2015 10:14-0400 BP Diastolic 80 mm[Hg] Gisel Negrete RN [facility] Work Phone: Comment on above: Patient Position: Sitting; Cuff Location : Left Arm; Cuff Size: Large 10-18-2015 10:14-0400 BP Systolic 160 mm[Hg] Gisel Negrete RN [facility] Work Phone: Comment on above: Patient Position: Sitting; Cuff Location : Left Arm; Cuff Size: Large 10-18-2015 10:14-0400 BSA (Body Surface Area) 1.72 m2 Gisel Negrete RN [facility] Work Phone: 10-18-2015 10:140400 Height 160.02 cm Gisel Negrete RN [facility] Work Phone: 10-18-2015 10:140400 Pulse (Heart Rate) 60 /min Gisel Negrete RN [facility] Work Phone: Comment on above: Pattern: Regular 10-18-2015 10:140400 Pulse Oximetry 98 % Ana Lilia Sagastume [facility] Work Phone: Comment on above: Room air 10-18-2015 10:140400 Respiratory Rate 18 /min Gisel Negrete RN [facility] Work Phone: Comment on above: Pattern: Unlabored 10-18-2015 10:140400 SaO2% (BldA) [Mass fraction] 98 % Gisel Negrete [facility]; [facility] Work Phone: 04-18-2015 10:23-0500 BMI (Body Mass Index) 27.48 kg/m2 Gisel Negrete RN [facility] Work Phone: 04-18-2015 10:23-0500 Body weight 70.36 kg Gisel Negrete RN [facility] Work Phone: 04-18-2015 10:23-0500 BP Diastolic 82 mm[Hg] Gisel Negrete RN [facility] Work Phone: Comment on above: Patient Position: Sitting; Cuff Location : Left Arm; Cuff Size: Large 04-18-2015 10:23-0500 BP Systolic 132 mm[Hg] Gisel Negrete RN [facility] Work Phone: Comment on above: Patient Position: Sitting; Cuff Location : Left Arm; Cuff Size: Large 04-18-2015 10:23-0500 BSA (Body Surface Area) 1.74 m2 Gisel Negrete RN [facility] Work Phone: 04-18-2015 10:23-0500 Height 160.02 cm Gisel Negrete RN [facility] Work Phone: 04-18-2015 10:23-0500 Pulse (Heart Rate) 80 /min Gisel Messenger RN [facility] Work Phone: Comment on above: Pattern: Regular 04-18-2015 10:23-0500 Pulse Oximetry 98 % Ana Liliamauricio Sagastume [facility] Work Phone: Comment on above: Room air 04-18-2015 10:23-0500 Respiratory Rate 18 /min Gisel Negrete RN [facility] Work Phone: Comment on above: Pattern: Unlabored 04-18-2015 10:23-0500 SaO2% (BldA) [Mass fraction] 98 % Gisel Negrete RN [facility]; [facility] Work Phone: 10-11-2014 13:38-0400 BMI (Body Mass Index) 27.83 kg/m2 [facility] Work Phone: 10-11-2014 13:38-0400 Body Temperature 98.1 [degF] [facility] Work Phone: 10-11-2014 13:38-0400 Body weight 71.27 kg [facility] Work Phone: 10-11-2014 13:38-0400 BP Diastolic 76 mm[Hg] [facility] Work Phone: Comment on above: Patient Position: Sitting; Cuff Location : Left Arm; Cuff Size: Standard 10-11-2014 13:38-0400 BP Systolic 100 mm[Hg] [facility] Work Phone: Comment on above: Patient Position: Sitting; Cuff Location : Left Arm; Cuff Size: Standard 10-11-2014 13:38-0400 BSA (Body Surface Area) 1.75 m2 [facility] Work Phone: 10-11-2014 13:38-0400 Height 160.02 cm [facility] Work Phone: 10-11-2014 13:38-0400 Pulse (Heart Rate) 74 /min [facility] Work Phone: Comment on above: Pattern: Regular 10-11-2014 13:38-0400 Pulse Oximetry 98 % Ana Lilia Keith [facility] Work Phone: Comment on above: Room air 10-11-2014 13:38-0400 Respiratory Rate 18 /min [facility] Work Phone: Comment on above: Pattern: Unlabored 10-11-2014 13:38-0400 SaO2% (BldA) [Mass fraction] 98 % [facility]; [facility] Work Phone: 09-14-2014 12:07-0400 BMI (Body Mass Index) 27.37 kg/m2 Gisel Negrete RN [facility] Work Phone: 09-14-2014 12:07-0400 Body weight 70.08 kg Gisel Negrete RN [facility] Work Phone: 09-14-2014 12:07-0400 BP Diastolic 78 mm[Hg] Gisel Negrete RN [facility] Work Phone: Comment on above: Patient Position: Sitting; Cuff Location : Left Arm; Cuff Size: Large 09-14-2014 12:07-0400 BP Systolic 138 mm[Hg] Gisel Negrete RN [facility] Work Phone: Comment on above: Patient Position: Sitting; Cuff Location : Left Arm; Cuff Size: Large 09-14-2014 12:07-0400 BSA (Body Surface Area) 1.73 m2 Gisel Negrete RN [facility] Work Phone: 09-14-2014 12:07-0400 Height 160.02 cm Gisel Negrete [facility] Work Phone: 09-14-2014 12:07-0400 Pulse (Heart Rate) 75 /min Gisel Negrete RN [facility] Work Phone: Comment on above: Pattern: Regular 09-14-2014 12:07-0400 Pulse Oximetry 97 % Ana Lilia Sagastume [facility] Work Phone: Comment on above: Room air 09-14-2014 12:07-0400 Respiratory Rate 18 /min Gisel Negrete RN [facility] Work Phone: Comment on above: Pattern: Unlabored 09-14-2014 12:07-0400 SaO2% (BldA) [Mass fraction] 97 % Gisel Negrete RN [facility]; [facility] Work Phone: 04-19-2014 13:12-0500 BMI (Body Mass Index) 27.88 kg/m2 Gisel Negrete RN [facility] Work Phone: 04-19-2014 13:12-0500 Body weight 71.39 kg Gisel Negrete RN [facility] Work Phone: 04-19-2014 13:12-0500 BP Diastolic 78 mm[Hg] Gisel Negrete RN [facility] Work Phone: Comment on above: Patient Position: Sitting; Cuff Location : Left Arm; Cuff Size: Large 04-19-2014 13:12-0500 BP Systolic 132 mm[Hg] Gisel Negrete RN [facility] Work Phone: Comment on above: Patient Position: Sitting; Cuff Location : Left Arm; Cuff Size: Large 04-19-2014 13:12-0500 BSA (Body Surface Area) 1.75 m2 Gisel Negrete RN [facility] Work Phone: 04-19-2014 13:12-0500 Height 160.02 cm Gisel Negrete RN [facility] Work Phone: 04-19-2014 13:12-0500 Pulse (Heart Rate) 79 /min Gisel Negrete RN [facility] Work Phone: Comment on above: Pattern: Regular 04-19-2014 13:12-0500 Pulse Oximetry 98 % Ana Lilia Keith [facility] Work Phone: Comment on above: Room air 04-19-2014 13:12-0500 Respiratory Rate 18 /min Gisel Negrete RN [facility] Work Phone: Comment on above: Pattern: Unlabored 04-19-2014 13:12-0500 SaO2% (BldA) [Mass fraction] 98 % Gisel Negrete RN [facility]; [facility] Work Phone: 10-04-2013 10:24-0400 BMI (Body Mass Index) 26.66 kg/m2 Gisel Negrete RN [facility] Work Phone: 10-04-2013 10:24-0400 Body Temperature 97.6 [degF] Gisel Negrete RN [facility] Work Phone: Comment on above: Method: Oral 10-04-2013 10:24-0400 Body weight 68.27 kg Gisel Negrete RN [facility] Work Phone: 10-04-2013 10:24-0400 BP Diastolic 82 mm[Hg] Gisel Negrete RN [facility] Work Phone: Comment on above: Patient Position: Sitting; Cuff Location : Left Arm; Cuff Size: Standard 10-04-2013 10:24-0400 BP Systolic 136 mm[Hg] Gisel Negrete RN [facility] Work Phone: Comment on above: Patient Position: Sitting; Cuff Location : Left Arm; Cuff Size: Standard 10-04-2013 10:24-0400 BSA (Body Surface Area) 1.71 m2 Gisel Negrete RN [facility] Work Phone: 10-04-2013 10:24-0400 Height 160.02 cm Gisel Negrete RN [facility] Work Phone: 10-04-2013 10:24-0400 Pulse (Heart Rate) 86 /min Gisel eNgrete RN [facility] Work Phone: Comment on above: Pattern: Regular 10-04-2013 10:24-0400 Pulse Oximetry 98 % Ana Lilia Sagastume [facility] Work Phone: Comment on above: Room air 10-04-2013 10:24-0400 Respiratory Rate 20 /min Gisel Negrete RN [facility] Work Phone: Comment on above: Pattern: Unlabored 10-04-2013 10:24-0400 SaO2% (BldA) [Mass fraction] 98 % Gisel Negrete RN [facility]; [facility] Work Phone: 06-30-2013 09:50-0500 BMI (Body Mass Index) 27.11 kg/m2 Gisel Negrete RN [facility] Work Phone: 06-30-2013 09:50-0500 Body weight 69.43 kg Gisel Negrete RN [facility] Work Phone: 06-30-2013 09:50-0500 BP Diastolic 84 mm[Hg] Gisel Negrete RN [facility] Work Phone: Comment on above: Patient Position: Sitting; Cuff Location : Left Arm; Cuff Size: Standard 06-30-2013 09:50-0500 BP Systolic 128 mm[Hg] Gisel Negrete RN [facility] Work Phone: Comment on above: Patient Position: Sitting; Cuff Location : Left Arm; Cuff Size: Standard 06-30-2013 09:50-0500 BSA (Body Surface Area) 1.73 m2 Gisel Negrete RN [facility] Work Phone: 06-30-2013 09:50-0500 Height 160.02 cm Gisel Negrete RN [facility] Work Phone: 06-30-2013 09:50-0500 Pulse (Heart Rate) 78 /min Gisel Negrete RN [facility] Work Phone: Comment on above: Pattern: Regular 06-30-2013 09:50-0500 Pulse Oximetry 97 % Ana Lilia Sagastume [facility] Work Phone: Comment on above: Room air 06-30-2013 09:50-0500 Respiratory Rate 20 /min Gisel Negrete RN [facility] Work Phone: Comment on above: Pattern: Unlabored 06-30-2013 09:50-0500 SaO2% (BldA) [Mass fraction] 97 % Gisel Negrete RN [facility]; [facility] Work Phone: 06-15-2013 10:27-0500 BMI (Body Mass Index) 27.11 kg/m2 Gisel Negrete RN [facility] Work Phone: 06-15-2013 10:27-0500 Body weight 69.43 kg Gisel Negrete RN [facility] Work Phone: 06-15-2013 10:27-0500 BP Diastolic 90 mm[Hg] Gisel Negrete RN [facility] Work Phone: Comment on above: Patient Position: Sitting; Cuff Location : Left Arm; Cuff Size: Large 06-15-2013 10:27-0500 BP Systolic 134 mm[Hg] Gisel Negrete RN [facility] Work Phone: Comment on above: Patient Position: Sitting; Cuff Location : Left Arm; Cuff Size: Large 06-15-2013 10:27-0500 BSA (Body Surface Area) 1.73 m2 Gisel Negrete RN [facility] Work Phone: 06-15-2013 10:27-0500 Height 160.02 cm Gisel Negrete RN [facility] Work Phone: 06-15-2013 10:27-0500 Pulse (Heart Rate) 77 /min Gisel Negrete RN [facility] Work Phone: Comment on above: Pattern: Regular 06-15-2013 10:27-0500 Pulse Oximetry 97 % Ana Lilia Sagastume [facility] Work Phone: Comment on above: Room air 06-15-2013 10:27-0500 Respiratory Rate 20 /min Gisel Negrete RN [facility] Work Phone: Comment on above: Pattern: Unlabored 06-15-2013 10:27-0500 SaO2% (BldA) [Mass fraction] 97 % Gisel Negrete RN [facility]; [facility] Work Phone: 05-30-2013 11:20-0500 BMI (Body Mass Index) 27.11 kg/m2 Gisel Negrete RN [facility] Work Phone: Comment on above: her machine 167/91 05-30-2013 11:20-0500 Body weight 69.43 kg Gisel Negrete RN [facility] Work Phone: Comment on above: her machine 167/91 05-30-2013 11:20-0500 BP Diastolic 82 mm[Hg] Gisel Negrete RN [facility] Work Phone: Comment on above: Patient Position: Sitting; Cuff Location : Left Arm; Cuff Size: Large her machine 167/91 05-30-2013 11:20-0500 BP Systolic 148 mm[Hg] Gisel Negrete RN [facility] Work Phone: Comment on above: Patient Position: Sitting; Cuff Location : Left Arm; Cuff Size: Large her machine 167/91 05-30-2013 11:20-0500 BSA (Body Surface Area) 1.73 m2 Gisel Negrete RN [facility] Work Phone: Comment on above: her machine 05-30-2013 11:20-0500 Height 160.02 cm Gisel Negrete RN [facility] Work Phone: Comment on above: her machine 05-30-2013 11:20-0500 Pulse (Heart Rate) 77 /min Gisel Negrete RN [facility] Work Phone: Comment on above: Pattern: Regular her machine 05-30-2013 11:20-0500 Pulse Oximetry 96 % Ana Lilia Sagastume [facility] Work Phone: Comment on above: Room air her machine 05-30-2013 11:20-0500 Respiratory Rate 20 /min Gisel Negrete RN [facility] Work Phone: Comment on above: Pattern: Unlabored her machine 05-30-2013 11:20-0500 SaO2% (BldA) [Mass fraction] 96 % Gisel Negrete RN [facility]; [facility] Work Phone: 03-09-2013 08:32-0400 BMI (Body Mass Index) 26.83 kg/m2 [facility] Work Phone: 03-09-2013 08:32-0400 Body Temperature 97.1 [degF] [facility] Work Phone: Comment on above: Method: Oral 03-09-2013 08:32-0400 Body weight 68.69 kg Lisbeth [facility] Work Phone: 03-09-2013 08:32-0400 BP Diastolic 80 mm[Hg] [facility] Work Phone: Comment on above: Patient Position: Sitting; Cuff Location : Left Arm; Cuff Size: Standard 03-09-2013 08:32-0400 BP Systolic 134 mm[Hg] [facility] Work Phone: Comment on above: Patient Position: Sitting; Cuff Location : Left Arm; Cuff Size: Standard 03-09-2013 08:32-0400 BSA (Body Surface Area) 1.72 m2 Lisbeth Ruiz [facility] Work Phone: 03-09-2013 08:32-0400 Height 160.02 cm Lisbeth Ruiz [facility] Work Phone: 03-09-2013 08:32-0400 Pulse (Heart Rate) 80 /min Lisbeth Ruiz [facility] Work Phone: Comment on above: Pattern: Regular 03-09-2013 08:32-0400 Respiratory Rate 16 /min Lisbeth Ruiz [facility] Work Phone: Comment on above: Pattern: Unlabored 09-10-2012 08:50-0400 BMI (Body Mass Index) 26.83 kg/m2 Gisel Negrete RN [facility] Work Phone: 09-10-2012 08:50-0400 Body Temperature 96.2 [degF] Gisel Negrete RN [facility] Work Phone: Comment on above: Method: Oral 09-10-2012 08:50-0400 Body weight 68.69 kg Gisel Negrete RN [facility] Work Phone: 09-10-2012 08:50-0400 BP Diastolic 78 mm[Hg] Gisel Negrete RN [facility] Work Phone: Comment on above: Patient Position: Sitting; Cuff Location : Left Arm; Cuff Size: Large 09-10-2012 08:50-0400 BP Systolic 130 mm[Hg] Gisel Negrete RN [facility] Work Phone: Comment on above: Patient Position: Sitting; Cuff Location : Left Arm; Cuff Size: Large 09-10-2012 08:50-0400 BSA (Body Surface Area) 1.72 m2 Gisel Negrete RN [facility] Work Phone: 09-10-2012 08:50-0400 Height 160.02 cm Gisel Negrete RN [facility] Work Phone: 09-10-2012 08:50-0400 Pulse (Heart Rate) 80 /min Gisel Negrete RN [facility] Work Phone: Comment on above: Pattern: Regular 09-10-2012 08:50-0400 Respiratory Rate 16 /min Gisel Negrete RN [facility] Work Phone: Comment on above: Pattern: Unlabored 09-18-2011 09:52-0400 BMI (Body Mass Index) 28.21 kg/m2 Gisel Negrete RN [facility] Work Phone: 09-18-2011 09:52-0400 Body weight 72.24 kg Gisel Negrete RN [facility] Work Phone: 09-18-2011 09:52-0400 BP Diastolic 84 mm[Hg] Gisel Negrete RN [facility] Work Phone: Comment on above: Patient Position: Sitting; Cuff Location : Left Arm; Cuff Size: Large 09-18-2011 09:52-0400 BP Systolic 122 mm[Hg] Gisel Negrete RN [facility] Work Phone: Comment on above: Patient Position: Sitting; Cuff Location : Left Arm; Cuff Size: Large 09-18-2011 09:52-0400 BSA (Body Surface Area) 1.76 m2 Gisel Negrete RN [facility] Work Phone: 09-18-2011 09:52-0400 Height 160.02 cm Giesl Negrete RN [facility] Work Phone: 09-18-2011 09:52-0400 Pulse (Heart Rate) 80 /min Gisel Negrete RN [facility] Work Phone: Comment on above: Pattern: Regular 09-18-2011 09:52-0400 Respiratory Rate 16 /min Gisel Negrete RN [facility] Work Phone: Comment on above: Pattern: Unlabored 03-17-2011 08:02-0400 BMI (Body Mass Index) 27.89 kg/m2 Gisel Negrete RN [facility] Work Phone: 03-17-2011 08:02-0400 Body Temperature 97.2 [degF] Gisel Negrete RN [facility] Work Phone: Comment on above: Method: Oral 03-17-2011 08:02-0400 Body weight 71.41 kg Gisel Negrete RN [facility] Work Phone: 03-17-2011 08:02-0400 BP Diastolic 80 mm[Hg] Gisel Negrete RN [facility] Work Phone: Comment on above: Patient Position: Sitting; Cuff Location : Left Arm; Cuff Size: Standard 03-17-2011 08:02-0400 BP Systolic 122 mm[Hg] Gisel Negrete RN [facility] Work Phone: Comment on above: Patient Position: Sitting; Cuff Location : Left Arm; Cuff Size: Standard 03-17-2011 08:02-0400 BSA (Body Surface Area) 1.75 m2 Gisel Negrete RN [facility] Work Phone: 03-17-2011 08:02-0400 Height 160.02 cm Gisel Negrete RN [facility] Work Phone: 03-17-2011 08:02-0400 Pulse (Heart Rate) 64 /min Gisel Negrete RN [facility] Work Phone: Comment on above: Pattern: Regular 03-17-2011 08:02-0400 Respiratory Rate 18 /min Gisel Negrete RN [facility] Work Phone: Comment on above: Pattern: Unlabored 12-13-2010 09:43-0400 BMI (Body Mass Index) 27.3 kg/m2 Gisel Negrete RN [facility] Work Phone: 12-13-2010 09:43-0400 Body weight 69.91 kg Gisel Negrete RN [facility] Work Phone: 12-13-2010 09:43-0400 BP Diastolic 80 mm[Hg] Gisel Negrete RN [facility] Work Phone: Comment on above: Patient Position: Sitting; Cuff Location : Left Arm; Cuff Size: Large 12-13-2010 09:43-0400 BP Systolic 122 mm[Hg] Gisel Negrete RN [facility] Work Phone: Comment on above: Patient Position: Sitting; Cuff Location : Left Arm; Cuff Size: Large 12-13-2010 09:43-0400 BSA (Body Surface Area) 1.73 m2 Gisel Negrete RN [facility] Work Phone: 12-13-2010 09:43-0400 Height 160.02 cm Gisel Negrete RN [facility] Work Phone: 12-13-2010 09:43-0400 Pulse (Heart Rate) 72 /min Gisel Negrete RN [facility] Work Phone: Comment on above: Pattern: Regular 12-13-2010 09:43-0400 Respiratory Rate 20 /min Gisel Negrete RN [facility] Work Phone: Comment on above: Pattern: Unlabored 09-18-2010 10:43-0400 BMI (Body Mass Index) 26.97 kg/m2 Gisel Negrete RN [facility] Work Phone: 09-18-2010 10:43-0400 Body Temperature 97.8 [degF] Gisel Negrete RN [facility] Work Phone: Comment on above: Method: Oral 09-18-2010 10:43-0400 Body weight 69.06 kg Gisel Negrete RN [facility] Work Phone: 09-18-2010 10:43-0400 BP Diastolic 78 mm[Hg] Gisel Negrete RN [facility] Work Phone: Comment on above: Patient Position: Sitting; Cuff Location : Left Arm; Cuff Size: Large 09-18-2010 10:43-0400 BP Systolic 118 mm[Hg] Gisel Negrete RN [facility] Work Phone: Comment on above: Patient Position: Sitting; Cuff Location : Left Arm; Cuff Size: Large 09-18-2010 10:43-0400 BSA (Body Surface Area) 1.72 m2 Gisel Negrete RN [facility] Work Phone: 09-18-2010 10:43-0400 Height 160.02 cm Gisel Negrete RN [facility] Work Phone: 09-18-2010 10:43-0400 Pulse (Heart Rate) 60 /min Gisel Negrete RN [facility] Work Phone: Comment on above: Pattern: Regular 09-18-2010 10:43-0400 Respiratory Rate 18 /min Gisel Negrete RN [facility] Work Phone: Comment on above: Pattern: Unlabored 03-11-2010 08:54-0400 BMI (Body Mass Index) 27.37 kg/m2 Gisel Negrete RN [facility] Work Phone: 03-11-2010 08:54-0400 Body weight 70.08 kg Gisel Negrete RN [facility] Work Phone: 03-11-2010 08:54-0400 BP Diastolic 82 mm[Hg] Gisel Negrete RN [facility] Work Phone: Comment on above: Patient Position: Sitting; Cuff Location : Left Arm; Cuff Size: Standard 03-11-2010 08:54-0400 BP Systolic 124 mm[Hg] Gisel Negrete RN [facility] Work Phone: Comment on above: Patient Position: Sitting; Cuff Location : Left Arm; Cuff Size: Standard 03-11-2010 08:54-0400 BSA (Body Surface Area) 1.73 m2 Gisel Negrete RN [facility] Work Phone: 03-11-2010 08:54-0400 Height 160.02 cm Gisel Negrete RN [facility] Work Phone: 03-11-2010 08:54-0400 Pulse (Heart Rate) 68 /min Gisel Negrete RN [facility] Work Phone: Comment on above: Pattern: Regular 03-11-2010 08:54-0400 Respiratory Rate 20 /min Gisel Negrete RN [facility] Work Phone: Comment on above: Pattern: Unlabored 11-09-2009 07:35-0400 Body Temperature 96.2 [degF] Ana Lilia Sagastume [facility] Work Phone: Comment on above: Method: Oral 11-09-2009 07:35-0400 BP Diastolic 78 mm[Hg] Ana Lilia Sagastume [facility] Work Phone: Comment on above: Patient Position: Sitting; Cuff Location : Left Arm; Cuff Size: Standard 11-09-2009 07:35-0400 BP Systolic 122 mm[Hg] Ana Lilia Sagastume [facility] Work Phone: Comment on above: Patient Position: Sitting; Cuff Location : Left Arm; Cuff Size: Standard 11-09-2009 07:35-0400 Pulse (Heart Rate) 78 /min Ana Lilia Sagastume [facility] Work Phone: Comment on above: Pattern: Regular 11-09-2009 07:35-0400 Respiratory Rate 18 /min Ana Lilia Sagastume [facility] Work Phone: Comment on above: Pattern: Unlabored 09-12-2009 09:13-0400 Body weight 67.64 kg Gisel Negrete RN [facility] Work Phone: 09-12-2009 09:13-0400 BP Diastolic 74 mm[Hg] Gisel Negrete RN [facility] Work Phone: Comment on above: Patient Position: Sitting; Cuff Location : Left Arm; Cuff Size: Large 09-12-2009 09:13-0400 BP Systolic 118 mm[Hg] Gisel Negrete RN [facility] Work Phone: Comment on above: Patient Position: Sitting; Cuff Location : Left Arm; Cuff Size: Large 09-12-2009 09:13-0400 Pulse (Heart Rate) 80 /min Gisel Negrete RN [facility] Work Phone: Comment on above: Pattern: Regular 09-12-2009 09:13-0400 Respiratory Rate 20 /min Gisel Negrete RN [facility] Work Phone: Comment on above: Pattern: Unlabored 08-22-2009 09:46-0400 Body weight 67.64 kg Gisel Negrete RN [facility] Work Phone: Comment on above: her machine 155/75 08-22-2009 09:46-0400 BP Diastolic 78 mm[Hg] Gisel Negrete RN [facility] Work Phone: Comment on above: Patient Position: Sitting; Cuff Location : Left Arm; Cuff Size: Standard her machine 155/75 08-22-2009 09:46-0400 BP Systolic 152 mm[Hg] Gisel Negrete RN [facility] Work Phone: Comment on above: Patient Position: Sitting; Cuff Location : Left Arm; Cuff Size: Standard her machine 155/75 08-22-2009 09:46-0400 Pulse (Heart Rate) 68 /min Gisel Negrete RN [facility] Work Phone: Comment on above: Pattern: Regular her machine 155/75 08-22-2009 09:46-0400 Respiratory Rate 20 /min Gisel Negrete RN [facility] Work Phone: Comment on above: Pattern: Unlabored her machine 155/75 08-08-2009 09:26-0400 Body weight 66.23 kg Gisel Negrete RN [facility] Work Phone: 08-08-2009 09:26-0400 BP Diastolic 78 mm[Hg] Gisel Negrete RN [facility] Work Phone: Comment on above: Patient Position: Sitting; Cuff Location : Left Arm; Cuff Size: Large 08-08-2009 09:26-0400 BP Systolic 128 mm[Hg] Gisel Negrete RN [facility] Work Phone: Comment on above: Patient Position: Sitting; Cuff Location : Left Arm; Cuff Size: Large 08-08-2009 09:26-0400 Pulse (Heart Rate) 64 /min Gisel Negrete RN [facility] Work Phone: Comment on above: Pattern: Regular 08-08-2009 09:26-0400 Respiratory Rate 20 /min Gisel Negrete RN [facility] Work Phone: Comment on above: Pattern: Unlabored 07-25-2009 11:22-0500 Body weight 66.23 kg Gisel Negrete RN Comprehensive Internal Medicine Work Phone: 07-25-2009 11:22-0500 BP Diastolic 80 mm[Hg] Gisel Negrete RN [facility] Work Phone: Comment on above: Patient Position: Sitting; Cuff Location : Left Arm; Cuff Size: Large 07-25-2009 11:22-0500 BP Systolic 138 mm[Hg] Gisel Negrete RN [facility] Work Phone: Comment on above: Patient Position: Sitting; Cuff Location : Left Arm; Cuff Size: Large 07-25-2009 11:22-0500 Pulse (Heart Rate) 72 /min Gisel Negrete RN [facility] Work Phone: Comment on above: Pattern: Regular 07-25-2009 11:22-0500 Respiratory Rate 20 /min Gisel Negrete RN [facility] Work Phone: Comment on above: Pattern: Unlabored 08-31-2008 08:13-0400 Body Temperature 97.7 [degF] Ronda Padron [facility] Internal Medicine Work Phone: Comment on above: Method: Oral 08-31-2008 08:13-0400 Body weight 64.86 kg Ronda Padrno [facility] Internal Medicine Work Phone: 08-31-2008 08:13-0400 BP Diastolic 84 mm[Hg] [facility]: Comment on above: Patient Position: Sitting; Cuff Location : Left Arm; Cuff Size: Standard 08-31-2008 08:13-0400 BP Systolic 130 mm[Hg] Ronda Padron [facility] Internal Medicine Work Phone: Comment on above: Patient Position: Sitting; Cuff Location : Left Arm; Cuff Size: Standard 08-31-2008 08:13-0400 Head Circumference 0 cm Ana Lilia Sagastume [facility] Internal Medicine Work Phone: 08-31-2008 08:13-0400 Head Occipital-frontal circumference 0 cm Ronda Padron [facility]; [facility] Work Phone: 08-31-2008 08:13-0400 Height 0 cm Ronda Padron [facility] Internal Medicine Work Phone: 08-31-2008 08:13-0400 Pulse (Heart Rate) 80 /min Ronda Padron [facility] Internal Medicine Work Phone: Comment on above: Pattern: Regular 08-31-2008 08:13-0400 Pulse Oximetry 98 % Ana Lilia Sagastume [facility] Internal Medicine Work Phone: Comment on above: Room air 08-31-2008 08:13-0400 Respiratory Rate 18 /min Ronda Padron [facility] Internal Medicine Work Phone: Comment on above: Pattern: Unlabored 08-31-2008 08:13-0400 SaO2% (BldA) [Mass fraction] 98 % [facility] Work Phone: 07-27-2008 [id number] Body weight 64.86 kg Gisel Negrete RN [facility] Work Phone: 07-27-2008 10:11-0500 BP Diastolic 88 mm[Hg] Gisel Negrete RN [facility] Work Phone: Comment on above: Patient Position: Sitting; Cuff Location : Left Arm; Cuff Size: Large 07-27-2008 10:11-0500 BP Systolic 144 mm[Hg] Gisel Negrete RN [facility] Work Phone: Comment on above: Patient Position: Sitting; Cuff Location : Left Arm; Cuff Size: Large 07-27-2008 10:11-0500 Head Circumference 0 cm Ana Lilia Sagastume [facility] Work Phone: 07-27-2008 10:11-0500 Head Occipital-frontal circumference 0 cm Gisel Negrete RN [facility]; [facility] Work Phone: 07-27-2008 10:11-0500 Height 0 cm Gisel Negrete RN [facility] Work Phone: 07-27-2008 10:11-0500 Pulse (Heart Rate) 64 /min Gisel Negrete RN [facility] Work Phone: Comment on above: Pattern: Regular 07-27-2008 10:11-0500 Respiratory Rate 20 /min Gisel Negrete RN [facility] Work Phone: Comment on above: Pattern: Unlabored 07-19-2008 08:34-0500 Body Temperature 95.7 [degF] [facility] Internal Medicine Work Phone: Comment on above: Method: Oral 07-19-2008 08:34-0500 Body weight 0 kg [facility] Internal Medicine Work Phone: 07-19-2008 08:34-0500 BP Diastolic 78 mm[Hg] [facility] Internal Medicine Work Phone: Comment on above: Patient Position: Sitting; Cuff Location : Left Arm; Cuff Size: Standard 07-19-2008 08:34-0500 BP Systolic 128 mm[Hg] [facility] Internal Medicine Work Phone: Comment on above: Patient Position: Sitting; Cuff Location : Left Arm; Cuff Size: Standard 07-19-2008 08:34-0500 Head Circumference 0 cm Ana Lilia Keith [facility] Work Phone: 07-19-2008 08:34-0500 Head Occipital-frontal circumference 0 cm [facility] Medicine; [facility] Work Phone: 07-19-2008 08:34-0500 Height 0 cm [facility] Work Phone: 07-19-2008 08:34-0500 Pulse (Heart Rate) 68 /min [facility] Work Phone: Comment on above: Pattern: Regular 07-19-2008 08:34-0500 Respiratory Rate 18 /min [facility] Work Phone: Comment on above: Pattern: Unlabored 06-12-2008 09:35-0500 Body weight 64.89 kg Gisel Negrete RN [facility] Work Phone: 06-12-2008 09:35-0500 BP Diastolic 78 mm[Hg] Gisel Negrete RN [facility] Work Phone: Comment on above: Patient Position: Sitting; Cuff Location : Left Arm; Cuff Size: Standard 06-12-2008 09:35-0500 BP Systolic 132 mm[Hg] Gisel Negrete RN [facility] Work Phone: Comment on above: Patient Position: Sitting; Cuff Location : Left Arm; Cuff Size: Standard 06-12-2008 09:35-0500 Head Circumference 0 cm Ana Lilia Sagastume [facility] Work Phone: 06-12-2008 09:35-0500 Head Occipital-frontal circumference 0 cm Gisel Negrete RN [facility]; [facility] Work Phone: 06-12-2008 09:35-0500 Height 0 cm Gisel Negrete RN [facility] Work Phone: 06-12-2008 09:35-0500 Pulse (Heart Rate) 80 /min Gisel Negrete RN [facility] Work Phone: Comment on above: Pattern: Regular 06-12-2008 09:35-0500 Respiratory Rate 20 /min Gisel Negrete RN [facility] Work Phone: Comment on above: Pattern: Unlabored 05-24-2008 10:02-0500 Body weight 64.41 kg Gisel Negrete RN [facility] Work Phone: 05-24-2008 10:02-0500 BP Diastolic 78 mm[Hg] Gisel Negrete RN [facility] Work Phone: Comment on above: Patient Position: Sitting; Cuff Location : Left Arm; Cuff Size: Standard 05-24-2008 10:02-0500 BP Systolic 148 mm[Hg] Gisel Negrete RN [facility] Work Phone: Comment on above: Patient Position: Sitting; Cuff Location : Left Arm; Cuff Size: Standard 05-24-2008 10:02-0500 Head Circumference 0 cm Ana Lilia Ketih [facility] Work Phone: 05-24-2008 10:02-0500 Head Occipital-frontal circumference 0 cm Gisel Negrete RN [facility]; [facility] Work Phone: 05-24-2008 10:02-0500 Height 0 cm Gisel Negrete RN [facility] Work Phone: 05-24-2008 10:02-0500 Pulse (Heart Rate) 60 /min Gisel Negrete RN [facility] Work Phone: Comment on above: Pattern: Regular 05-24-2008 10:02-0500 Respiratory Rate 18 /min Gisel Negrete RN [facility] Work Phone: Comment on above: Pattern: Unlabored 04-13-2008 08:20-0500 Body Temperature 96.7 [degF] Ronda Padron [facility] Internal Medicine Work Phone: Comment on above: Method: Oral 04-13-2008 08:20-0500 Body weight 64.41 kg Ronda Padron [facility] Internal Medicine Work Phone: 04-13-2008 08:20-0500 BP Diastolic 70 mm[Hg] Ronda Padron [facility] Internal Medicine Work Phone: Comment on above: Patient Position: Sitting; Cuff Location : Left Arm; Cuff Size: Standard 04-13-2008 08:20-0500 BP Systolic 122 mm[Hg] Ronda Padron [facility] Internal Medicine Work Phone: Comment on above: Patient Position: Sitting; Cuff Location : Left Arm; Cuff Size: Standard 04-13-2008 08:20-0500 Head Circumference 0 cm Ana Lilia Sagastume [facility] Internal Medicine Work Phone: 04-13-2008 08:20-0500 Head Occipital-frontal circumference 0 cm [facility]; [facility] Work Phone: 04-13-2008 08:20-0500 Height 0 cm [facility]onda [facility] Internal Medicine Work Phone: 04-13-2008 08:20-0500 Pulse (Heart Rate) 76 /min [facility] Internal Medicine Work Phone: Comment on above: Pattern: Regular 04-13-2008 08:20-0500 Respiratory Rate 16 /min [facility] Internal Medicine Work Phone: Comment on above: Pattern: Unlabored 03-16-2008 07:03-0400 Body weight 64.67 kg Gisel Negrete RN [facility] Work Phone: 03-16-2008 07:03-0400 BP Diastolic 80 mm[Hg] Gisel Negrete RN [facility] Work Phone: Comment on above: Patient Position: Sitting; Cuff Location : Left Arm; Cuff Size: Standard 03-16-2008 07:03-0400 BP Systolic 128 mm[Hg] Gisel Negrete RN [facility] Work Phone: Comment on above: Patient Position: Sitting; Cuff Location : Left Arm; Cuff Size: Standard 03-16-2008 07:03-0400 Head Circumference 0 cm Ana Lilia Sagastume [facility] Medicine Work Phone: 03-16-2008 07:03-0400 Head Occipital-frontal circumference 0 cm Gisel Negrete RN [facility]; [facility] Work Phone: 03-16-2008 07:03-0400 Height 0 cm Gisel Negrete RN [facility] Work Phone: 03-16-2008 07:03-0400 Pulse (Heart Rate) 80 /min Gisel Negrete RN [facility] Work Phone: Comment on above: Pattern: Regular 03-16-2008 07:03-0400 Respiratory Rate 20 /min Gisel Negrete RN [facility] Work Phone: Comment on above: Pattern: Unlabored 03-10-2007 09:20-0400 Body weight 68.21 kg Gisel Negrete RN [facility] Work Phone: 03-10-2007 09:20-0400 BP Diastolic 78 mm[Hg] Gisel Negrete RN [facility] Work Phone: Comment on above: Patient Position: Sitting; Cuff Location : Left Arm; Cuff Size: Standard 03-10-2007 09:20-0400 BP Systolic 132 mm[Hg] Gisel Negrete RN [facility] Work Phone: Comment on above: Patient Position: Sitting; Cuff Location : Left Arm; Cuff Size: Standard 03-10-2007 09:20-0400 Head Circumference 0 cm Ana Lilia Sagastume [facility] Work Phone: 03-10-2007 09:20-0400 Head Occipital-frontal circumference 0 cm Gisel Negrete RN [facility]; [facility] Work Phone: 03-10-2007 09:20-0400 Height 0 cm Gisel Negrete RN [facility] Work Phone: 03-10-2007 09:20-0400 Pulse (Heart Rate) 80 /min Gisel Negrete RN [facility] Work Phone: Comment on above: Pattern: Regular 03-10-2007 09:20-0400 Respiratory Rate 16 /min Gisel Negrete RN [facility] Work Phone: Comment on above: Pattern: Unlabored 02-17-2007 09:22-0400 Body weight 66.4 kg Gisel Negrete RN [facility] Work Phone: 02-17-2007 09:22-0400 BP Diastolic 84 mm[Hg] Gisel Negrete RN [facility] Work Phone: Comment on above: Patient Position: Sitting; Cuff Location : Left Arm; Cuff Size: Standard 02-17-2007 09:22-0400 BP Systolic 132 mm[Hg] Gisel Negrete RN [facility] Work Phone: Comment on above: Patient Position: Sitting; Cuff Location : Left Arm; Cuff Size: Standard 02-17-2007 09:22-0400 Head Circumference 0 cm Ana Lilia Sagastume [facility] Work Phone: 02-17-2007 09:22-0400 Head Occipital-frontal circumference 0 cm Gisel Negrete RN [facility]; [facility] Work Phone: 02-17-2007 09:22-0400 Height 0 cm Gisel Negrete RN [facility] Work Phone: 02-17-2007 09:22-0400 Pulse (Heart Rate) 72 /min Gisel Negrete RN [facility] Work Phone: Comment on above: Pattern: Regular 02-17-2007 09:22-0400 Respiratory Rate 16 /min Gisel Negrete RN [facility] Work Phone: Comment on above: Pattern: Unlabored 10-01-2006 08:13-0400 Body Temperature 97.7 [degF] Ana Lilia Sagastume [facility] Work Phone: Comment on above: Method: Oral 10-01-2006 08:13-0400 Body weight 0 kg Ana Lilia Sagastume [facility] Work Phone: 10-01-2006 08:13-0400 BP Diastolic 80 mm[Hg] Ana Lilia Sagastume [facility] Work Phone: Comment on above: Patient Position: Sitting; Cuff Location : Right Arm; Cuff Size: Standard 10-01-2006 08:13-0400 BP Systolic 130 mm[Hg] Ana Lilia Sagastume [facility] Work Phone: Comment on above: Patient Position: Sitting; Cuff Location : Right Arm; Cuff Size: Standard 10-01-2006 08:13-0400 Head Circumference 0 cm Ana Lilia Sagastume [facility] Work Phone: 10-01-2006 08:13-0400 Head Occipital-frontal circumference 0 cm Ana Lilia Sagastume DO Work Phone: [facility]; [facility] Work Phone: 10-01-2006 08:13-0400 Height 0 cm Ana Lilia Sagastume [facility] Work Phone: 10-01-2006 08:13-0400 Pulse (Heart Rate) 74 /min Ana Lilia Sagastume [facility] Work Phone: Comment on above: Pattern: Regular 10-01-2006 08:13-0400 Respiratory Rate 16 /min Ana Lilia Sagastume [facility] Work Phone: Comment on above: Pattern: Unlabored 01-22-2006 15:43-0400 Body Temperature 97.9 [degF] Peg Hansen [employer]LEB[employer]Y SUPERVISOR [facility] Work Phone: Comment on above: Method: Undefined 01-22-2006 15:43-0400 Body weight 0 kg Peg Hansen PHLEBOTOMY SUPERVISOR [facility] Work Phone: 01-22-2006 15:43-0400 BP Diastolic 80 mm[Hg] Peg Hansen PHLEBOTOMY SUPERVISOR [facility] Work Phone: Comment on above: Patient Position: Sitting; Cuff Location : Left Arm; Cuff Size: Standard 01-22-2006 15:43-0400 BP Systolic 124 mm[Hg] Peg Hansen PHLEBOTOMY SUPERVISOR [facility] Work Phone: Comment on above: Patient Position: Sitting; Cuff Location : Left Arm; Cuff Size: Standard 01-22-2006 15:43-0400 Head Circumference 0 cm Ana Lilai Sagastume [facility] Work Phone: 01-22-2006 15:43-0400 Head Occipital-frontal circumference 0 cm Peg Hansen PHLEBOTOMY SUPERVISOR [facility]; [facility] Work Phone: 01-22-2006 15:43-0400 Height 0 cm Peg Hansen PHLEBOTOMY SUPERVISOR [facility] Work Phone: 01-22-2006 15:43-0400 Pulse (Heart Rate) 80 /min Peg Hansen PHLEBOTOMY SUPERVISOR [facility] Work Phone: Comment on above: Pattern: Regular 01-22-2006 15:43-0400 Respiratory Rate 16 /min Peg Hansen PHLEBOTOMY SUPERVISOR [facility] Work Phone: Comment on above: Pattern: Undefined Encounters Encounter Date Encounter Type Care Provider Facility Start: 11-23-2024 End: 11-23-2024 ambulatory [place]ilia [place] [place]: 08-14-2024 End: 08-14-2024 ambulatory Ana Lilia Keith Facility:[facility] Start: 08-04-2024 End: 08-04-2024 ambulatory Rinku L Seese Facility:[facility] Start: 07-28-2024 End: 07-28-2024 ambulatory Ana Lilia Keith [place] Start: 07-21-2024 End: 07-21-2024 ambulatory [place] Facility:[facility] Start: 07-15-2024 End: 07-15-2024 ambulatory Ana Lilia Keith [place] Start: 04-25-2024 End: 04-25-2024 ambulatory Rinku L Seese [place] [place] Start: 01-01-2024 Encounter for genera l adult medical examination with abnormal findings Ana Lilia Sagastume [facility] Start: 12-31-2023 End: 12-31-2023 ambulatory Leila Burroughs [place] [place] Start: 12-18-2023 ambulatory Ana Lilia Antonioon Facilit y:[facility] Start: 12-15-2023 End: 12-15-2023 ambulatory Rinku L Seese [place] [place] Start: 12-14-2023 End: 12-14-2023 ambulatory Ana Lilia Keith Facility:[facility] Start: 02-19-2023 End: 02-19-2023 Office outpatient visit 10 minutes Ana Lilia Keith DO Work Phone: [facility] Start: 02-19-2023 End: 02-19-2023 Ana Lilia Keith DO Work Phone: [facility] Start: 02-09-2023 End: 02-09-2023 Office outpatient visit 25 minutes Ana Lilia Keith DO Work Phone: [facility] Start: 11-21-2022 End: 11-21-2022 Ana Lilia Keith DO Work Phone: [facility] Start: 10-24-2022 End: 10-24-2022 Ana Lilia Keith DO Work Phone: [facility] Start: 10-10-2022 End: 10-13-2022 Ana Lilia Keith DO Work Phone: [facility] Start: 09-24-2022 ambulatory Ana Lilia Sagastume DO [facility] Start: 09-24-2022 End: 09-24-2022 Office outpatient visit 15 minutes Ana Lilia Sagastume DO Work Phone: [facility] Start: 09-18-2022 End: 09-18-[address] Ana Lilia Sagastume Work Phone: [facility] Work Phone: Start: 09-18-2022 End: 09-18-[address] Ana Lilia Sagastume Work Phone: [facility]-Laboratory Start: 09-08-2022 End: 09-08-2022 Office outpatient visit 25 minutes Ana Lilia Sagastume DO Work Phone: [facility] Start: 09-08-2022 Ana Lilia soriano DO Work Phone: [facility] Start: 08-01-2022 End: 08-01-[address] Ana Lilia Sagastume Work Phone: [facility] Start: 07-21-2022 Non-patient / Non-visit Dr. Chata Sagastume Work Phone: [facility] Start: 07-20-2022 End: 07-20-2022 Non-patient / Non-visit Dr. Ana Lilia Sagastume Work Phone: [facility] Start: 07-20-2022 Non-patient / Non-visit Dr. Chata Sagastume Work Phone: [facility] Start: 07-20-2022 End: 07-21-2022 Evaluation and management of inpatient Dr. Ana Lilia Sagastume Work Phone: [facility]-Progressive Care Unit Start: 07-20-2022 End: 07-21-[address] Ana Lilia Sagastume Work Phone: [facility] Work Phone: Start: 07-11-2022 End: 07-11-2022 ambulatory MIKEL ANDRADE Facility:[facility] Start: 07-11-2022 End: 07-11-2022 Patient encounter procedure Mikel Andrade MD Work Phone: [facility] Cardiology [facility] Comment on above: Paroxysmal atrial fi brillation (HCC) (Primary Dx); At risk for stroke; Anticoagulant long-term use; History of Hqtlw-Ftlmdkgcb-Cwjga (WPW) syndrome; S/P ablation operation for arrhythmia Start: 07-03-2022 End: 07-03-[address] Ana Lilia Sagastume Work Phone: [facility] Work Phone: Start: 07-03-2022 End: 07-03-[address] Ana Lilia Sagastume Work Phone: [facility]-Outpatient Bone Densitometry Start: 06-17-[address] Mine Sagastume Work Phone: [facility]-Cardiovascular Services Start: 06-16-2022 End: 06-16-[address] Ana Lilia Sagastume Work Phone: [facility] Start: 06-14-2022 End: 06-14-[address] Ana Lilia Sagastume Work Phone: [facility] Start: 06-04-2022 End: 06-05-2022 Patient encounter procedure Ana Lilia Sagastume DO Work Phone: [facility] Start: 06-04-2022 End: 06-05-2022 Periodic preventive med est patient 65yrs& older Ana Lilia Sagastume DO Work Phone: [facility] Start: 05-15-2022 End: 05-15-2022 Ana Lilia Sagastume DO Work Phone: [facility] Start: 05-14-2022 End: 05-14-[address] Ana Lilia Sagastume Work Phone: [facility] Work Phone: Start: 05-14-2022 End: 05-14-[address] Ana Lilia Sagastume Work Phone: [facility]-Laboratory Start: 05-12-2022 End: 05-12-2022 Office outpatient visit 25 minutes Ana Lilia Sagastume DO Work Phone: [facility] Start: 05-03-2022 Non-patient / Non-visit Dr. Chata Sagastume Work Phone: [facility] Start: 05-03-2022 End: 05-03-2022 Evaluation and management of inpatient Dr. Ana Lilia Sagastume Work Phone: [facility]-Progressive Care Unit Start: 03-19-2022 End: 03-19-[address] Ana Lilia Sagastume Work Phone: [facility] Start: 03-13-2022 Ana Lilia soriano DO Work Phone: [facility] Start: 03-13-2022 End: 03-13-2022 Office outpatient visit 25 minutes Ana Lilia Sagastume DO Work Phone: [facility] Start: 03-11-2022 End: 03-11-2022 Emergency department patient visit Dr. Ana Lilia Sagastume Work Phone: [facility]-Emergency Department Start: 09-23-2021 End: 09-23-[address] Ana Lilia Sagastume Work Phone: [facility]-Laboratory Start: 05-30-2021 End: 05-30-[address] Ana Lilia Sagastume Work Phone: [facility]-Breast Imaging - Biopsy/[facility] Start: 05-30-2021 Non-patient / Non-visit Dr. Chata Sagastume Work Phone: [facility] Start: 05-20-2021 End: 05-20-2021 Office outpatient visit 15 minutes Ana Lilia Keith DO Work Phone: [facility] Start: 05-13-2021 End: 05-13-2021 Ana Lilia Keith DO Work Phone: [facility] Start: 05-02-2021 End: 05-02-2021 Patient encounter procedure Ana Lilia Keith DO Work Phone: [facility] Start: 05-02-2021 End: 05-02-2021 Periodic preventive med est patient 65yrs& older Ana Lilia Keith DO Work Phone: [facility] Start: 04-24-2021 End: 04-24-2021 Office outpatient visit 10 minutes Ana Lilia Keith DO Work Phone: [facility] Start: 04-17-2021 End: 04-19-2021 Ana Lilia Keith DO Work Phone: [facility] Start: 04-16-2021 End: 04-16-2021 Office outpatient visit 10 minutes Ana Lilia Keith DO Work Phone: [facility] Start: 04-16-2021 End: 04-16-2021 Office outpatient visit 10 minutes Ana Lilia Keith DO Work Phone: [facility] Start: 04-11-2021 End: 04-11-2021 Ana Lilia Keith DO Work Phone: [facility] Start: 07-23-2020 End: 07-23-2020 Office outpatient visit 10 minutes Ana Lilia Keith [facility] Start: 06-28-2020 End: 06-28-2020 Office outpatient visit 15 minutes Ana Lilia Keith [facility] Start: 06-12-2020 End: 06-12-2020 Office outpatient visit 25 minutes Ana Lilia Keith [facility] Start: 05-10-2020 End: 05-10-2020 Office outpatient visit 25 minutes Ana Lilia Keith [facility] Start: 04-12-2020 End: 04-12-2020 Office outpatient visit 10 minutes Ana Lilia Sagastume [facility] Start: 01-05-2020 End: 01-05-2020 Office outpatient visit 5 minutes Ana Lilia Sagastume [facility] Start: 01-05-2020 End: 01-05-2020 Office outpatient visit 15 minutes Ana Lilia Sagastume [facility] Start: 12-15-2019 End: 12-15-2019 Office outpatient visit 15 minutes Ana Lilia Sagastume [facility] Start: 12-05-2019 End: 12-05-2019 Phone Encounter Ana Lilia Sagastume [facility] Start: 12-05-2019 End: 12-05-2019 Ana Lilia Keith DO Work Phone: [facility] Start: 12-01-2019 End: 12-01-2019 Patient encounter procedure Kaitlin Braeden HAR[facility]; [facility] Work Phone: Start: 12-01-2019 End: 12-01-2019 Periodic preventive med est patient 65yrs& older Ana Lilia Sagastume [facility] Start: 12-01-2019 Review Ana Lilia Sagastume [facility] Start: 11-07-2019 End: 11-07-2019 Office outpatient visit 25 minutes Ana Lilia Sagastume [facility] Start: 11-03-2019 End: 11-03-2019 Phone Encounter Ana Lilia Sagastume [facility] Start: 11-03-2019 End: 11-03-2019 Ana Lilia Sagastume DO Work Phone: [facility] Start: 11-01-2019 End: 11-01-2019 Office outpatient visit 15 minutes Ana Lilia Sagastume [facility] Internal Medicine Start: 04-07-2019 End: 04-07-2019 Office outpatient visit 10 minutes Ana Lilia Sagastume [facility] Start: 02-03-2019 End: 02-03-2019 Office outpatient visit 10 minutes Ana Lilia [facility] Start: 12-30-2018 End: 12-30-2018 Office outpatient visit 25 minutes Ana Lilia [facility]ast[facility] Start: 12-30-2018 Review Ana Lilia Sagastume Compreh ensive Internal Medicine Start: 12-02-2018 End: 12-02-2018 Phone Encounter Ana Lilia Sagastume [facility] Start: 12-02-2018 End: 12-02-2018 Ana Lilia Sagastume DO Work Phone: [facility] Start: 12-15-2016 End: 12-15-2016 Office outpatient visit 25 minutes Ana Liliamauricio Sagastume [facility] Start: 11-24-2016 End: 11-24-2016 Phone Encounter Ana Liliamauricio Sagastume [facility] Medicine Start: 11-24-2016 End: 11-24-2016 Ana Lilia Sagastume DO Work Phone: [facility] Start: 02-26-2016 End: 02-26-2016 Office outpatient visit 15 minutes Ana Lilia Sagastume [facility] Start: 12-20-2015 End: 12-20-2015 Patient encounter procedure Ana Lilia Sagastume DO Work Phone: [facility] Start: 12-20-2015 End: 12-20-2015 Periodic preventive med est patient 65yrs& older Ana Lilia Keith [facility] Start: 10-18-2015 End: 10-18-2015 Office outpatient visit 25 minutes Ana Lilia Keith [facility] Start: 04-18-2015 End: 04-18-2015 Office outpatient visit 25 minutes Ana Lilia Sagastume [facility] Start: 10-11-2014 End: 10-11-2014 Office outpatient visit 15 minutes Ana Lilia Keith [facility] Start: 09-14-2014 End: 09-14-2014 Office outpatient visit 40 minutes Ana Lilia Keith [facility] Start: 04-19-2014 End: 04-19-2014 Office outpatient visit 15 minutes Ana Lilia Keith [facility] Start: 10-06-2013 End: 10-06-2013 Lab Order Ana Liliamauricio Sagastume [facility] Start: 10-06-2013 End: 10-06-2013 Ana Lilia Sagastume DO Work Phone: [facility] Start: 10-04-2013 End: 10-04-2013 Patient encounter procedure Ana Lilia Keith [facility] Start: 10-04-2013 End: 10-04-2013 Ana Lilia Sagastume DO Work Phone: [facility] Start: 09-30-2013 End: 09-30-2013 Patient encounter procedure Ana Lilia Keith [facility] Start: 09-30-2013 End: 09-30-2013 Ana Lilia Sagastume DO Work Phone: [facility] Start: 09-29-2013 End: 09-29-2013 Phone Encounter Ana Lilia Sagastume [facility] Start: 09-29-2013 End: 09-29-2013 Ana Liliamauricio Antonioon DO Work Phone: [facility] Start: 09-28-2013 End: 09-28-2013 Phone Encounter Ana Lilia Sagastume [facility] Start: 09-28-2013 End: 09-28-2013 Ana Liliamauricio Antonioon DO Work Phone: [facility] Start: 06-30-2013 End: 06-30-2013 Patient encounter procedure Ana Lilia Sagastume [facility] Start: 06-30-2013 End: 06-30-2013 Ana Lilia Antonioon DO Work Phone: [facility] Start: 06-15-2013 End: 06-15-2013 Patient encounter procedure Ana Lilia Sagastume [facility] Start: 06-15-2013 End: 06-15-2013 Ana Lilia Antonioon DO Work Phone: [facility] Start: 05-30-2013 End: 05-30-2013 Patient encounter procedure Ana Lilia Sagastume [facility] Start: 05-30-2013 End: 05-30-2013 Ana Lilia Antonioon DO Work Phone: [facility] Start: 03-09-2013 End: 03-09-2013 Patient encounter procedure Ana Lilia Sagastume [facility] Start: 03-09-2013 End: 03-09-2013 Ana Lilia Antonioon DO Work Phone: [facility] Start: 11-04-2012 End: 11-04-2012 Phone Encounter Ana Lilia Sagastume [facility] Start: 11-04-2012 End: 11-04-2012 Ana Liliamauricio Antonioon DO Work Phone: [facility] Start: 11-01-2012 End: 11-01-2012 Phone Encounter Ana Lilia Sagastume [facility] Start: 11-01-2012 End: 11-01-2012 Ana Liliamauricio Antonioon DO Work Phone: [facility] Start: 09-10-2012 End: 09-13-2012 Patient encounter procedure Ana Lilia Sagastume [facility] Start: 09-10-2012 End: 09-13-2012 Ana Lilia Sagastume DO Work Phone: [facility] Start: 08-30-2012 End: 08-30-2012 Phone Encounter Ana Lilia Sagastume [facility] Start: 08-30-2012 End: 08-30-2012 Ana Lilia Sagastume DO Work Phone: [facility] Start: 05-28-2012 End: 05-28-2012 Annotation/Addendum Ana Lilia Sagastume [facility] Start: 05-28-2012 End: 05-28-2012 Phone Encounter Ana Lilia Sagastume [facility] Start: 05-28-2012 End: 05-28-2012 Ana Lilia Sagastume DO Work Phone: [facility] Start: 09-18-2011 End: 09-18-2011 Patient encounter procedure Ana Lilia Sagastume [facility] Start: 09-18-2011 End: 09-18-2011 Ana Lilia Sagastume DO Work Phone: [facility] Start: 03-17-2011 End: 03-17-2011 Patient encounter procedure Ana Lilia Sagastume [facility] Start: 03-17-2011 End: 03-17-2011 Ana Lilia Sagastume DO Work Phone: [facility] Start: 12-13-2010 End: 12-13-2010 Patient encounter procedure Ana Lilia Sagastume [facility] Start: 12-13-2010 End: 12-13-2010 Ana Lilia Sagastume DO Work Phone: [facility] Start: 09-18-2010 End: 09-18-2010 Patient encounter procedure Ana Lilia Sagastume [facility] Start: 09-18-2010 End: 09-18-2010 Ana Lilia Sagastume DO Work Phone: [facility] Start: 03-11-2010 End: 03-11-2010 Patient encounter procedure Ana Lilia Sagastume [facility] Start: 03-11-2010 End: 03-11-2010 Ana Lilia Sagastume DO Work Phone: [facility] Start: 11-09-2009 End: 11-09-2009 Patient encounter procedure Ana Lilia Sagastume [facility] Start: 11-09-2009 End: 11-09-2009 Ana Liliamauricio Sagastume DO Work Phone: [facility] Start: 09-12-2009 End: 09-12-2009 Patient encounter procedure Ana Lilia Sagastume [facility] Start: 09-12-2009 End: 09-12-2009 Ana Lilia Sagastume DO Work Phone: [facility] Start: 08-22-2009 End: 08-22-2009 Office outpatient visit 25 minutes Ana Lilia Sagastume [facility] Start: 08-08-2009 End: 08-08-2009 Patient encounter procedure Ana Lilia Sagastume [facility] Start: 08-08-2009 End: 08-08-2009 Ana Lilia Sagastume DO Work Phone: [facility] Start: 07-25-2009 End: 07-25-2009 Patient encounter procedure Ana Lilia Sagastume [facility] Start: 07-25-2009 End: 07-25-2009 Ana Lilia Sagastume DO Work Phone: [facility] Start: 08-31-2008 End: 08-31-2008 Office outpatient visit 15 minutes Ana Lilia Sagastume [facility] Start: 07-27-2008 End: 07-27-2008 Patient encounter procedure Ana Lilia Sagastume [facility] Start: 07-27-2008 End: 07-27-2008 Ana Lilia Sagastume DO Work Phone: [facility] Start: 07-19-2008 End: 07-19-2008 Office outpatient visit 15 minutes Ana Lilia Sagastume [facility] Start: 06-12-2008 End: 06-12-2008 Patient encounter procedure Ana Liila Sagastume [facility] Start: 06-12-2008 End: 06-12-2008 Preprocedural examination done Ana Lilia Sagastume DO Work Phone: [facility] Start: 06-12-2008 End: 06-12-2008 Ana Lilia Sagastume DO Work Phone: [facility] Start: 05-24-2008 End: 05-24-2008 Patient encounter procedure Ana Lilia Sagastume [facility] Start: 05-24-2008 End: 05-24-2008 Ana Lilia Keith DO Work Phone: [facility] Start: 04-13-2008 End: 04-13-2008 Office outpatient visit 15 minutes Ana Lilia Sagastume [facility] Start: 03-16-2008 End: 03-16-2008 Patient encounter procedure Ana Lilia Sagastume [facility] Start: 03-16-2008 End: 03-16-2008 Ana Lilia Sagastume DO Work Phone: [facility] Start: 03-10-2007 End: 03-10-2007 Office outpatient visit 15 minutes Ana Lilia Sagastume [facility] Start: 02-17-2007 End: 02-17-2007 Patient encounter procedure Ana Lilia Sagastume [facility] Start: 02-17-2007 End: 02-17-2007 Ana Lilia Sagastume DO Work Phone: [facility] Start: 10-01-2006 End: 10-01-2006 Patient encounter procedure Ana Lilia Sagastume [facility] Start: 10-01-2006 End: 10-01-2006 Ana Lilia Sagastume DO Work Phone: [facility] Start: 03-23-2006 End: 03-24-2006 Nursing evaluation of patient and report Ana Lilia Sagastume [facility] Start: 03-23-2006 End: 03-24-2006 Ana Lilia Sagastume DO Work Phone: [facility] Start: 03-05-2006 End: 03-05-2006 Definitive Diagnosis Pending Ana Lilia Sagastume [facility] Start: 03-05-2006 End: 03-05-2006 Ana Lilia Sagastume DO Work Phone: [facility] Start: 03-02-2006 End: 03-02-2006 Historical Summary Ana Lilia Sagastume [facility] Start: 03-02-2006 End: 03-02-2006 Ana Lilia Sagastume DO Work Phone: [facility] Start: 01-22-2006 End: 01-23-2006 Office outpatient visit 10 minutes Ana Lilia Sagastume [facility] Start: 01-21-2006 End: 01-21-2006 Historical Summary Ana Lilia Sagastume [facility] Start: 01-21-2006 End: 01-21-2006 Ana Lilia Sagastume DO Work Phone: [facility] Start: 12-02-2005 End: 12-03-2005 Historical Summary Ana Lilia Sagastume [facility] Start: 12-02-2005 End: 12-03-2005 Ana Lilia Keith DO Work Phone: [facility] Patient encounter procedure Kaitlin Deras [facility]; [facility] Work Phone: Patient encounter procedure Bruno Ferris [facility]; [facility] Work Phone: Patient encounter procedure [facility]; [facility] Work Phone: Patient encounter procedure Ana Liliamauricio Sagastume DO Work Phone: [facility]; [facility] Work Phone: [facility] encounter procedure [facility]; [facility] Work Phone: Patient encounter procedure [facility]; [facility] Work Phone: Patient encounter [facility]; [facility] Work Phone: Patient encounter procedure Te Kaplanr [facility]; [facility] Work Phone: End: 10-12-2008 Preprocedural examination done Occupational Medicine Officer [facility]; [facility] Work Phone: Procedures Date Procedure Procedure Detail Performing Clinician Start: 03-10-2023 End: 03-10-2023 Procedure Note: See Note; NOTES: [facility] [address] [place] [address] Foot min 3 Views MR#: [id number] Acct: [id number] Name: YADY COOMBS Rep #: [id number] : 1950 F 72 From: Hayden Edouard MD PCP: Dr. Ana Lilia Sagastume, DO Status: DEP AMB Study: Foot min 3 Views Date of Exam: 03/10/23 Exam# [id number] Ordering Dr: Ryan Loredo MD [id number] STUDY: X-RAY - LEFT FOOT CLINICAL: Female, 72 years old. Fracture follow-up. TECHNIQUE: 3 view(s) of the foot. COMPARISON: February 19, 2023. FINDINGS: Osteopenia. Stable diffuse mild osteoarthrosis. Transverse fracture of the proximal shaft of the fifth metatarsal with no change in position or alignment and no callus formation. Stable large superior and inferior calcaneal spurs. Normal soft tissues. ___ RAD/Foot min 3 Views IMPRESSION: Stable osteopenia, osteoarthritic changes, calcaneal spurs and Kessler fracture of the proximal shaft of the fifth metatarsal. No complicating features. Electronically Signed: Hayden Edouard MD at 9:52 EDT Reading Location ID and State: [facility] / [place] , Service support , CC: Dr. Ana Lilia Sagastume DO; Dr. Ryan Loredo MD Financial Counselor: Signed Ryan Loredo Work Phone: Start: 03-10-2023 End: 03-10-2023 Procedure Note: See Note; NOTES: [facility] [address] [place] [id number] OFFICE VISIT Date of Service: 03/10/23 MR#: [id number] Acct: [id number] Name: YADY COOMBS Rep #: [id number] : 1950 Provider: Dr. Ryan mercado MD Age/Sex: 72/F [place] [facility] [email or web address]: Signed Intake Vital Signs 02/27/23 19:29 Height 5 ft 2 in Intake Visit Reasons: RIGHT FOOT Chief Complaint: left foot Allergies Anesthetics - Amide Type - Select A Adverse Reaction (Verified 02/27/23 19:28) Nausea/Vom Anesthetics - Rafaela Type- Parabens Adverse Reaction (Verified 02/27/23 19:28) Nausea/Vom PFSH Medical History Abnormal mammogram of left breast Cataract Chest pain Chronic anticoagulation COVID-19 (04/23/21) Depression Essential hypertension Family history of LA (myocardial infarction) History of Jkckr-Vzlvgbqaz-Ldeoq (WPW) syndrome Hypothyroidism Nondisplaced fracture of fifth left metatarsal bone Nondisplaced fracture of fifth right metatarsal bone Over 65 years old Paroxysmal atrial fibrillation with RVR SVT (supraventricular tachycardia) WPW (Olsxj-Eqhfpwcbd-Buiwu syndrome) Surgical History History of bilateral cataract extraction ( 02/2022) History of left heart catheterization (LHC) ( 08/28/20) History of radiofrequency ablation procedure for cardiac arrhythmia ( 2002) Hx of hernia repair Hx of thyroidectomy Hx of tubal ligation Family History Other Diabetes Heart disease Hypertension Myocardial infarction Social History Smoking Status: Never smoker alcohol intake: never substance use type: does not use caffeine: Yes Type: tea Number of servings: 6 HPI RIGHT FOOT Details: Parts of this documentation were recorded by a scribe, this documentation accurately reflects the service provided and the decisions made by me, Dr. Ryan Loredo MD 03/10/23 0818. YADY COOMBS is a 72 year old F here today for 2 wks FU L 5th MT [place] 2. Cast got wet. Plan to change and new xr today. Otherwise the patient is doing well has a knee scooter that is working out fine for the patient. Ortho Exam General General: Yes no acute distress Neurologic: Yes alert and Yes oriented x3 Psychologic: Yes reasonable and appropriate Left Foot/Ankle Skin: Yes CDI; No Ecchymosis, Soft Tissue Swelling or Erythema Exam: Yes TTP distal 5th metatarsal, eversion normal and inversion normal; No Ecchymosis, Soft tissue swelling, Erythema, tender to palpate - over fracture site, TTP Lateral Malleolus, TTP ATFL, TTP Medial Malleolus, TTP Deltoid Ligament, TTP Lisfranc Joint, tender to palpate calcaneofibular ligament, TTP Retrocalcaneal bursa, TTP Peroneal or peroneal snapping Compartments: soft Dorsiflexion 0-20: 5 degrees Plantar Flexion 0-40: 40 degrees ROM: No pain with range of motion or crepitus with range of motion Tests: Grey Test: 1 and Squeeze Test: 1 Motor: Ankle Dorsiflextion: 4, Ankle Plantar Flexion: 4, Ankle Eversion: 4, Ankle Inversion: 4 and EHL: 4 Sensation: Deep Peroneal Nerve: I, Superficial Peroneal Nerve: I, Tibial Nerve: I, Sural Nerve: I and Saphenous Nerve: I Pulses: Dorsalis Pedis: 2 and Posterior Tibial: 2 Supplemental Info Repeat x-rays of the foot 3 views no change in the alignment. Coding Level of Care Code Global Post Op Diagnoses Nondisplaced fracture of fifth left metatarsal bone S92.355A Assessment and Plan Assessment and Plan (1) Nondisplaced fracture of fifth left metatarsal bone: Status: Acute Plan: YADY COOMBS is a 72 year old F here today for 2 wks FU L 5th MT [place] 2. Cast got wet. New cast placed. Continue nonweightbearing 3 more weeks and follow-up in the clinic at that point to discontinue the cast the patient understands no further questions or concerns. Orders: Orders Foot min 3 Views Today S92.355A - Nondisplaced fracture of fifth metatarsal bone, left foot, initial encounter for closed fracture 03/10/23 0935 <Electronically signed by Ryan Loredo MD> Date ___ Ryan Loredo MD Cosigner Signature: Date ___ (if applicable) CC: Ana Lilia Sagastume DO Work Phone: Start: 02-27-2023 End: 02-27-2023 Procedure Note: See Note; NOTES: [facility] Medical Records Department [address] [place] [address] Emergency Department Summary 02/27/23 MR#: [id number] Acct: [id number] Name: YADY COOMBS Rep #: [id number] : 1950 72 From: Gaetaon Hunter DO PCP: Dr. Ana Lilia Sagastume DO Status:DEP ER Location: ED [facility] History of Present Illness Chief Complaint: Dental Narrative Narrative: 72-year-old female presenting with left lower dental pain. Patient states he lost ground a long time ago. She states it was not bothering her so she did not do anything about it. Been having pain in the left lower teeth for couple of days. Denies any new trauma. Denies difficulty swallowing or breathing. No facial swelling. She presents today for antibiotics and something controlled the pain. She has made a dental appointment for Thursday of next week. [facility] Medical History Abnormal mammogram of left breast Cataract Chest pain Chronic anticoagulation COVID-19 (04/23/21) Depression Essential hypertension Family history of LA (myocardial infarction) History of Bwzkk-Ttzophpmu-Gaear (WPW) syndrome Hypothyroidism Nondisplaced fracture of fifth left metatarsal bone Nondisplaced fracture of fifth right metatarsal bone Over 65 years old Paroxysmal atrial fibrillation with RVR SVT (supraventricular tachycardia) WPW (Mzbnp-Akbaykjrc-Ttrcs syndrome) Home Medications chlorthalidone 25 mg tablet 25 mg PO DAILY blood pressure 12/06/19 [History Last Taken Unknown] duloxetine 60 mg capsule,delayed release 60 mg PO DAILY DEPRESSION 12/06/19 [History Last Taken 07/20/22] alendronate 70 mg tablet 70 mg PO SA OSTEOPEROSIS 05/28/21 [History Last Taken 07/19/22] levothyroxine 112 mcg tablet (Synthroid) 112 mcg PO DAILY THYROID 12/13/21 [History Last Taken 07/20/22] apixaban 5 mg tablet (Eliquis) 5 mg PO BID AFIB 05/03/22 [History Last Taken 07/20/22] metoprolol succinate 100 mg tablet,extended release 24 hr 100 mg PO DAILY BLOOD PRESSURE 05/03/22 [History Last Taken 07/20/22] calcium carbonate 500 mg-vitamin D3 10 mcg (400 unit) tablet (Calcium 500 + D) 1 tab PO QHS SUPPLEMENT 07/20/22 [History Last Taken 07/04/22] albuterol sulfate 90 mcg/actuation aerosol inhaler 2 inh inhalation 4X/DAY PRN COUGH 08/01/22 [History Last Taken Unknown] beclomethasone dipropionate 80 mcg/actuation HFA breath activated aerosol (Qvar RediHaler) 2 inh inhalation QAM COUGH 11/14/22 [History Last Taken Unknown] mirabegron 25 mg tablet,extended release 24 hr (Myrbetriq) 25 mg PO DAILY 11/14/22 [History Last Taken Unknown] omeprazole 40 mg capsule,delayed release 40 mg PO DAILY 11/14/22 [History Last Taken Unknown] amoxicillin 875 mg-potassium clavulanate 125 mg tablet 1 tab PO BID #20 tabs 02/27/23 [Rx Last Taken Unknown] hydrocodone-acetaminophen 5-325mg 5mg-325mg 1 tab PO Q6H PRN pain 1 day #4 TABLETS 02/27/23 [Rx Last Taken Unknown] Allergy/AdvReac Type Severity Reaction Status Date / Time Anesthetics - Amide Type - AdvReac Nausea/Vom Verified 02/27/23 19:28 Select A Anesthetics - Rafaela Type- AdvReac Nausea/Vom Verified 02/27/23 19:28 Parabens Family History Other Diabetes Heart disease Hypertension Myocardial infarction Surgical History History of bilateral cataract extraction ( 02/2022) History of left heart catheterization (LHC) ( 08/28/20) History of radiofrequency ablation procedure for cardiac arrhythmia ( 2002) Hx of hernia repair Hx of thyroidectomy Hx of tubal ligation Social History Smoking Status: Never smoker alcohol intake: never substance use type: does not use caffeine: Yes Type: tea Number of servings: 6 ROS ROS ED Constitutional Constitutional ED: Denies chills, fever(s) or sweats Eyes Eyes: Denies blurry vision or change in vision ENT ENT ED: Reports other Details: Dental pain ; Denies ear pain or sore throat Cardiovascular Cardiovascular: Denies chest pain, palpitations or racing heartbeat Respiratory/Chest Respiratory/Chest: Denies cough, dyspnea or sputum Gastrointestinal Gastrointestinal: Denies abdominal pain, constipation, diarrhea, nausea or vomiting Genitourinary Genitourinary ED: Denies dysuria, hematuria or urinary frequency Musculoskeletal Musculoskeletal: Denies arthralgias, myalgias or neck pain Integumentary Denies abscess, Abrasions or rash Neurologic Neurologic: Denies headache(s), paresthesias or weakness Psychiatric Psychiatric: Denies anxiety, depression, suicidal ideation or suicidal thoughts Endocrine Endocrinology: Denies polydipsia or polyuria EXAM Physical Exam Const Vital Signs: 02/27/23 19:29 02/27/23 19:31 Temperature 97.2 F L 97.2 F L Temperature Source Temporal Temporal Pulse Rate 88 88 Respiratory Rate 16 16 Blood Pressure 170/125 H 170/125 H Blood Pressure Mean 140 140 Pulse Ox 100 99 Positive well nourished General Appearance ED: NAD HEENT HEENT Narrative: Dental caries. There is percussion tenderness to the lower teeth on the left fairly diffusely. tenderness Mouth ED: Yes oral and palatal mucosa normal, Yes lips normal, Yes tongue normal and Yes salivary gland normal Mouth: oral and palatal mucosa normal, lips normal, tongue normal and salivary gland normal Eyes PERRL and EOMs intact bilaterally Chest Wall inspection of chest normal Resp normal respiratory effort and no retractions Cardio regular rate and regular rhythm GI normal to inspection, nondistended, normoactive bowel sounds Extremity normal to inspection Neuro oriented x3 and CN's II-XII intact bilaterally Sensorium / Orientation: alert Motor Exam: strength 5/5 throughout Psych mental status grossly normal Skin no rashes or lesions noted MDM MDM MDM Narrative Medical decision making narrative: Patient presenting with dental pain. As well she has poor dentition and dental caries. She will require dental repair/excision. She will be placed on Augmentin tonight. She will also be given a short supply of [place]. Patient has a follow-up appointment on Thursday of next week. Patient discharged stable condition. Impression: 1. Dental caries 2. Dental pain Discharge Plan Triage Chief Complaint: Dental ED Provider: Gaetano Hunter Dx/Rx/DC Orders Instructions: ED Dental Pain, ED Dental Cavity Prescriptions: New amoxicillin-pot clavulanate 875-125 mg tablet 1 tab PO BID Qty: 20 0RF hydrocodone-acetaminophen 5-325 mg tablet 1 tab PO Q6H PRN (Reason: pain) 1 Days Qty: 4 0RF No Action levothyroxine [Synthroid] 112 mcg tablet 112 mcg PO DAILY alendronate 70 mg tablet 70 mg PO SA Myrbetriq 25 mg tablet extended release 24 hr 25 mg PO DAILY Patient Comments: take 1 tablet by mouth once daily omeprazole 40 mg capsule,delayed release(DR/EC) 40 mg PO DAILY Patient Comments: take 1 capsule by mouth once daily chlorthalidone 25 MG tablet 25 mg PO DAILY duloxetine 60 MG capsule 60 mg PO DAILY Eliquis 5 mg tablet 5 mg PO BID metoprolol succinate 100 mg tablet extended release 24 hr 100 mg PO DAILY calcium carbonate-vitamin D3 [Calcium 500 + D] 500 mg-10 mcg (400 unit) Tablet 1 tab PO QHS albuterol sulfate 90 mcg/actuation HFA aerosol inhaler 2 inh INHALATION 4X/DAY PRN (Reason: COUGH) Qvar RediHaler 80 mcg/actuation HFA aerosol breath activated 2 inh INHALATION QAM Primary Care Provider: Ana Lilia Sagastume Referrals: Ana Lilia Sagastume DO [Primary Care Provider] - Disposition Disposition: Home, Self Care Discharge Date/Time: 02/27/23 20:10 What to do if you have Problems For any increased pain, shortness of breath, bleeding, nausea or vomiting, chest pain, or any unexpected problems, contact your Primary Care Provider. Call [facility] ([phone]) or report to the closest Emergency Room. Call 911 if necessary. 02/27/232017 <Electronically signed by Gaetano Hunter DO> Cosigner Signature (if applicable): CC: Dr. Ana Lilia Sagastume DO Signed Ana Lilia Sagastume DO Work Phone: Start: 02-20-2023 End: 02-20-2023 Procedure Note: See Note; NOTES: [facility] [address] [place] [id number] OFFICE VISIT Date of Service: 02/20/23 MR#: [id number] Acct: [id number] Name: YADY COOMBS Rep #: [id number] : 1950 Provider: Dr. Ryan mercado MD Age/Sex: 72/F [place] [facility] [place]: Signed Intake Vital Signs 11/14/22 13:23 Height 5 ft 1 in Weight: 158 lb BMI 29.8 BP 128/77 H Blood Pressure Location Lt brachial Position Sitting Respiration 16 Pulse 60 Pulse Source Auscultation Intake Visit Reasons: left foot Chief Complaint: left foot Accompanied by: Self Is patient in pain?: Yes Pain scale (1-10): 6 Allergies Anesthetics - Amide Type - Select A Adverse Reaction (Verified 11/14/22 13:34) Nausea/Vom Anesthetics - Rafaela Type- Parabens Adverse Reaction (Verified 11/14/22 13:34) Nausea/Vom Medications chlorthalidone 25 mg tablet 25 mg PO DAILY blood pressure 12/06/19 [History Confirmed 02/20/23] duloxetine 60 mg capsule,delayed release 60 mg PO DAILY DEPRESSION 12/06/19 [History Confirmed 02/20/23] alendronate 70 mg tablet 70 mg PO SA OSTEOPEROSIS 05/28/21 [History Confirmed 02/20/23] levothyroxine 112 mcg tablet (Synthroid) 112 mcg PO DAILY THYROID 12/13/21 [History Confirmed 02/20/23] apixaban 5 mg tablet (Eliquis) 5 mg PO BID AFIB 05/03/22 [History Confirmed 02/20/23] metoprolol succinate 100 mg tablet,extended release 24 hr 100 mg PO DAILY BLOOD PRESSURE 05/03/22 [History Confirmed 02/20/23] calcium carbonate 500 mg-vitamin D3 10 mcg (400 unit) tablet (Calcium 500 + D) 1 tab PO QHS SUPPLEMENT 07/20/22 [History Confirmed 11/14/22] albuterol sulfate 90 mcg/actuation aerosol inhaler 2 inh inhalation 4X/DAY PRN COUGH 08/01/22 [History Confirmed 02/20/23] beclomethasone dipropionate 80 mcg/actuation HFA breath activated aerosol (Qvar RediHaler) 2 inh inhalation QAM COUGH 11/14/22 [History Confirmed 02/20/23] mirabegron 25 mg tablet,extended release 24 hr (Myrbetriq) 25 mg PO DAILY 11/14/22 [History Confirmed 02/20/23] omeprazole 40 mg capsule,delayed release 40 mg PO DAILY 11/14/22 [History Confirmed 02/20/23] [facility] Medical History (Updated 02/20/23 @ 08:39 by Ryan Loredo MD) Abnormal mammogram of left breast Cataract Chest pain Chronic anticoagulation COVID-19 (04/23/21) Depression Essential hypertension Family history of LA (myocardial infarction) History of Yhrju-Mkjheqvws-Iraue (WPW) syndrome Hypothyroidism Nondisplaced fracture of fifth left metatarsal bone Nondisplaced fracture of fifth right metatarsal bone Over 65 years old Paroxysmal atrial fibrillation with RVR SVT (supraventricular tachycardia) WPW (Nrrmb-Repludytj-Kxmbq syndrome) Surgical History (Updated 02/20/23 @ 08:29 by Lawrence Shin) History of bilateral cataract extraction ( 02/2022) History of left heart catheterization (LHC) ( 08/28/20) History of radiofrequency ablation procedure for cardiac arrhythmia ( 2002) Hx of hernia repair Hx of thyroidectomy Hx of tubal ligation Family History (Reviewed 11/14/22 @ 13:39 by Gisel Quezada DIRECTOR [employer], DIRECTOR [employer]) Other Diabetes Heart disease Hypertension Myocardial infarction Social History (Reviewed 11/14/22 @ 13:39 by Gisel Quezada DIRECTOR [employer], DIRECTOR [employer]) Smoking Status: Never smoker alcohol intake: never substance use type: does not use caffeine: Yes Type: tea Number of servings: 6 HPI left foot Details: Parts of this documentation were recorded by a scribe, this documentation accurately reflects the service provided and the decisions made by me, Dr. Ryan Loredo MD 02/20/23 0895. YADY COOMBS is a 72 year old F here today for L foot pain, 5th MT fracture, was hurting for a few days then worse on thursday with walking. Works at the [employer]. tried a brace. but still hurting. on eliquis. Ortho Exam General General: Yes no acute distress Neurologic: Yes alert and Yes oriented x3 Psychologic: Yes reasonable and appropriate Left Foot/Ankle Skin: Yes CDI and Soft Tissue Swelling; No Ecchymosis or Erythema Exam: Yes Soft tissue swelling, tender to palpate - over fracture site, TTP distal 5th metatarsal, eversion normal and inversion normal; No Ecchymosis, Erythema, TTP Lateral Malleolus, TTP ATFL, TTP Medial Malleolus, TTP Deltoid Ligament, TTP Lisfranc Joint, tender to palpate calcaneofibular ligament, TTP Retrocalcaneal bursa, TTP Peroneal or peroneal snapping Compartments: soft Dorsiflexion 0-20: 5 degrees Plantar Flexion 0-40: 40 degrees ROM: No pain with range of motion or crepitus with range of motion Tests: Grey Test: 1 and Squeeze Test: 1 Motor: Ankle Dorsiflextion: 4, Ankle Plantar Flexion: 4, Ankle Eversion: 4, Ankle Inversion: 4 and EHL: 4 Sensation: Deep Peroneal Nerve: I, Superficial Peroneal Nerve: I, Tibial Nerve: I, Sural Nerve: I and Saphenous Nerve: I Pulses: Dorsalis Pedis: 2 and Posterior Tibial: 2 Supplemental Info [facility] [address] [place] [address] Foot min 3 Views MR#: [id number] Acct: [id number] Name: YADY COOMBS Rep #: [id number] : 1950 F 72 From: Harlan Fajardo MD PCP: Dr. Ana Lilia Sagastume, Status: DEP AMB Study: Foot min 3 Views Date of Exam: 02/19/23 Exam# [id number] Ordering Dr: Lindsey Browne MD ADDENDUM by Dr. Harlan Fajardo MD on 02/19/23 at 1401 ADDENDUM [id number] ADDENDUM: There is a airport representative and side (Right vs Left) error on the original dictation. Study was of the LEFT foot, while the header on the original report stated right foot. Electronically Signed: Carlos Fajardo MD at 14:01 EDT , 02/19/23 1401 Date cc: Dr. Lindsey Browne MD; Dr. Ana Lilia Sagastume DO * Signed ADDENDUM by Dr. Harlan Fajardo MD on 02/19/23 at 1401 RAD/Foot min 3 Views IMPRESSION: undefined 02/19/23 1408 Date cc: Dr. Lindsey Browne MD; Dr. Ana Lilia Sagastume DO * Signed [id number] STUDY: X-RAY - RIGHT FOOT CLINICAL: Female, 72 years old. Acute lateral pain TECHNIQUE: 3 view(s) of the foot. COMPARISON: None. FINDINGS: Bones are diffusely demineralized. Normal talus and tarsal bones. Calcaneal spurs Normal visualized subtalar, talonavicular, calcaneocuboid, tarsal and tarsometatarsal articulations. Acute nondisplaced fracture in the proximal fifth metatarsal There is degenerative arthrosis of the metatarsophalangeal joint of the hallux . Normal tibial and fibular sesamoid bones. Normal interphalangeal joint of the great toe. Normal phalanges of the great toe. Normal second through fifth metatarsophalangeal joints. Normal interphalangeal joints and phalanges of the lesser toes. The soft tissue structures are unremarkable. ___ RAD/Foot min 3 Views IMPRESSION: Osteopenia with an acute nondisplaced fracture in the proximal fifth metatarsal with soft tissue swelling Calcaneal spurs First MTP joint arthrosis Electronically Signed: Carlos Fajardo MD at 11:30 EDT , CC: Dr. Lindsey Browne MD; Dr. Ana Lilia Sagastume DO Financial Counselor: Signed Coding Level of Care Code Attention Criminal Court Judge Diagnoses Nondisplaced fracture of fifth left metatarsal bone S92.355A Comment 10803 and cpt closed tx 5th MT fracture Assessment and Plan Assessment and Plan (1) Nondisplaced fracture of fifth left metatarsal bone: Status: Acute Plan: 72 F L 5th MT Kessler 2 increase risk non union, therefore will do NWB cast 6 weeks. Discussed vte prophylaxis, not routine for foot fractures and pt on eliquis. Crutches and encourage movement and ambulation otherwise. FU 6 weeks to dc cast. We did discuss her was ideal options like an orthosis boot or a stiff soled shoe or regular shoe but these are less than ideal in the literature and this does have a high risk of nonunion therefore the patient has excepted immobilization with a below the knee fiberglass cast with the foot and ankle in neutral we placed that today we will try to get her crutches as these have been difficult to obtain. If this goes on to nonunion I did warn the patient that surgical management would involve intramedullary screw fixation. She understood no further questions or concerns. 02/20/23 0847 <Electronically signed by Ryan Loredo MD> Date ___ Ryan Loredo MD Cosigner Signature: Date ___ (if applicable) CC: Ana Lilia Sagastume DO Work Phone: Start: 02-19-2023 End: 02-19-2023 Procedure Note: See Note; NOTES: [facility] [address] [place] [address] Foot min 3 Views MR#: [id number] Acct: [id number] Name: YADY COOMBS Rep #: [id number] : 1950 F 72 From: Harlan Fajardo MD PCP: Dr. Ana Lilia Sagastume DO Status: DEP AMB Study: Foot min 3 Views Date of Exam: 02/19/23 Exam# [id number] Ordering Dr: Lindsey Browne MD [id number] STUDY: X-RAY - RIGHT FOOT CLINICAL: Female, 72 years old. Acute lateral pain TECHNIQUE: 3 view(s) of the foot. COMPARISON: None. FINDINGS: Bones are diffusely demineralized. Normal talus and tarsal bones. Calcaneal spurs Normal visualized subtalar, talonavicular, calcaneocuboid, tarsal and tarsometatarsal articulations. Acute nondisplaced fracture in the proximal fifth metatarsal There is degenerative arthrosis of the metatarsophalangeal joint of the hallux . Normal tibial and fibular sesamoid bones. Normal interphalangeal joint of the great toe. Normal phalanges of the great toe. Normal second through fifth metatarsophalangeal joints. Normal interphalangeal joints and phalanges of the lesser toes. The soft tissue structures are unremarkable. ___ RAD/Foot min 3 Views IMPRESSION: Osteopenia with an acute nondisplaced fracture in the proximal fifth metatarsal with soft tissue swelling Calcaneal spurs First MTP joint arthrosis Electronically Signed: Carlos Fajardo MD at 11:30 EDT , CC: Dr. Lindsey Browne MD; Dr. nAa Lilia Sagastume DO Financial Counselor: Signed Lindsey Browne MD Work Phone: Start: 11-14-2022 End: 11-14-2022 Procedure Note: See Note; NOTES: [facility] [place] [id number] [facility] [place], [place] [id number] OFFICE VISIT Date of Service: 11/14/22 MR#: [id number] Acct: [id number] Name: YADY COOMBS Rep #: [id number] : 1950 Provider: MORGAN mendes Age/Sex: 72/F Location: [facility] [place] Status: Signed [facility] History of Present Illness Details: Yady Coombs is a 72 year-old white female who presents to the office for a cardiovascular follow-up visit. She has a history of atrial fibrillation with RVR, chest discomfort, and an abnormal exercise tolerance test superimposed upon a history of WPW status post EPS/RFA (2002). She was in the ER on 03/11/2022 for Afib with RVR, she did convert on her own. She notes that this lasted approx 1.5 hours. She states she has had multiple episodes of atrial fibrillation. She has recently followed with Dr. Andrade-JUVENCIO for possible ablation vs antiarrhythmic. Patient presented to the emergency room on 07/20/2022 with complaints of palpitations and mild lightheadedness. Her EKG at that time demonstrated atrial fibrillation with heart rate of 152 bpm. She was given Cardizem IV drip and did convert back to normal sinus rhythm. She was admitted for observation and discharged home to follow with cardiology and electrophysiology. From a cardiac standpoint, the patient is doing well. She denies any palpitations, chest pain, pressure or heaviness. She does have occasional SOB with exertion-climbing stairs. This is nothing new or worsening. She denies Orthopnea, and PND. She does not have bleeding issues; no blood in urine, stool or nosebleeds. She denies any decrease in energy level, myalgias, or claudication. She does not have edema, or sudden weight gain. She denies dizziness, lightheadedness, syncopal or near syncopal episodes, and headaches. Intake Vital Signs 11/14/22 13:23 Height 5 ft 1 in Weight: 158 lb BMI 29.8 BP 128/77 H Blood Pressure Location Lt brachial Position Sitting Respiration 16 Pulse 60 Pulse Source Auscultation Intake Visit Reasons: 3-4 MO F/U Pourer Metal Required: No Accompanied by: Self Is patient in pain?: No Allergies Anesthetics - Amide Type - Select A Adverse Reaction (Verified 11/14/22 13:34) Nausea/Vom Anesthetics - Rafaela Type- Parabens Adverse Reaction (Verified 11/14/22 13:34) Nausea/Vom Medications chlorthalidone 25 mg tablet 25 mg PO DAILY blood pressure 12/06/19 [History Confirmed 11/14/22] duloxetine 60 mg capsule,delayed release 60 mg PO DAILY DEPRESSION 12/06/19 [History Confirmed 11/14/22] alendronate 70 mg tablet 70 mg PO SA OSTEOPEROSIS 05/28/21 [History Confirmed 11/14/22] levothyroxine 112 mcg tablet (Synthroid) 112 mcg PO DAILY THYROID 12/13/21 [History Confirmed 11/14/22] apixaban 5 mg tablet (Eliquis) 5 mg PO BID AFIB 05/03/22 [History Confirmed 11/14/22] metoprolol succinate 100 mg tablet,extended release 24 hr 100 mg PO DAILY BLOOD PRESSURE 05/03/22 [History Confirmed 11/14/22] calcium carbonate 500 mg-vitamin D3 10 mcg (400 unit) tablet (Calcium 500 + D) 1 tab PO QHS SUPPLEMENT 07/20/22 [History Confirmed 11/14/22] albuterol sulfate 90 mcg/actuation aerosol inhaler 2 inh inhalation 4X/DAY PRN COUGH 08/01/22 [History Confirmed 11/14/22] cholecalciferol (vitamin D3) 50 mcg (2,000 unit) tablet 100 mcg PO DAILY 08/01/22 [History Confirmed 11/14/22] beclomethasone dipropionate 80 mcg/actuation HFA breath activated aerosol (Qvar RediHaler) 2 inh inhalation QAM COUGH 11/14/22 [History Confirmed 11/14/22] mirabegron 25 mg tablet,extended release 24 hr (Myrbetriq) 25 mg PO DAILY 11/14/22 [History Confirmed 11/14/22] omeprazole 40 mg capsule,delayed release 40 mg PO DAILY 11/14/22 [History Confirmed 11/14/22] Ejection fraction %: 65 to 70 [facility] Medical History (Reviewed 11/14/22 @ 13:39 by Gisel Quezada DIRECTOR [employer], DIRECTOR [employer]) Abnormal mammogram of left breast Cataract Chest pain Chronic anticoagulation COVID-19 (04/23/21) Depression Essential hypertension Family history of LA (myocardial infarction) History of Oonvn-Wpsehfjyf-Ckqmb (WPW) syndrome Hypothyroidism Over 65 years old Paroxysmal atrial fibrillation with RVR SVT (supraventricular tachycardia) WPW (Xzjxu-Damehizkn-Ezfjb syndrome) Surgical History (Reviewed 11/14/22 @ 13:39 by Gisel Quezada DIRECTOR [employer], DIRECTOR [employer]) History of bilateral cataract extraction ( 02/2022) History of cardiac radiofrequency ablation History of left heart catheterization (LHC) ( 08/28/20) History of radiofrequency ablation procedure for cardiac arrhythmia ( 2002) History of surgery on left wrist Family History (Reviewed 11/14/22 @ 13:39 by Gisel Quezada DIRECTOR [employer], DIRECTOR [employer]) Other Diabetes Heart disease Hypertension Myocardial infarction Social History Smoking Status: Never smoker alcohol intake: never substance use type: does not use caffeine: Yes Type: tea Number of servings: 6 ROS Const Const: Negative for fatigue, weakness, fever(s), headache(s), chills, frequent falls, weight gain or weight loss Eyes Eyes: Negative for blind spots, loss of peripheral vision, transient loss of vision, blurry vision, change in vision, double vision, floaters or tunnel vision ENT ENT: Negative for headache(s), dizziness, Nosebleed/epistaxis, balance problems or neck pain Cardio Chest Pain: No Palpitations: No Edema: None Muscle aches with walking: None Resp Respiratory: Positive for SOB with activity (occasional-climbing stairs this is nothing new or worsening); Negative for SOB at rest or SOB orthopnea SOB lying down GI GI: Negative nausea, vomiting, heartburn, bloating, vomiting blood/hematemesis, bright, red blood in stools or black,tarry stools Musc Musc: Negative for muscle aches/ myalgia, muscle weakness, joint pain or balance problems Neuro Neuro: Negative for dizziness, lightheadedness, near syncope, syncope, orthostatic symptoms, frequent falls, headache(s), weakness, blurry vision or double vision Vadim Hematologic/Lymphatic: Negative for easy bleeding or easy bruising Endo Endo: Negative for fatigue Cardiology Exam Const Appearance: cooperative, healthy appearing, comfortable, no acute distress and well developed Orientation: alert, awake and oriented x3 Head Head: normal to inspection Ears: hearing grossly normal bilaterally Nose: external nose normal Face and Sinus: face symmetric Eyes General: appearance normal, both eyes and all related structures Eyelids: eyelids normal Conjunctivae: conjunctivae normal Pupils: PERRL EOM: EOM intact bilaterally Neck Neck: normal visual inspection and trachea midline; Negative no JVD Carotids: Negative bruit Chest Chest inspection: normal inspection of the chest Auscultation: Bilateral: Clear to Auscultation Cardio Palpation: normal PMI Rate: regular rate Rhythm: regular rhythm Heart sounds: S1 normal and S2 normal; Negative rub, gallop or murmur GI GI: normal to inspection and soft Neuro General: patient alert, patient awake, patient oriented x3 and CN's II-XI intact bilaterally Extremities Pulses: Normal: Right Posterior Tibial Pulse, Left Posterior Tibial Pulse, Right Radial Pulse and Left Radial Pulse Lower Extremity Edema: None: Bilateral Psych Psychological: normal affect Supplemental Info Supplemental Information Echocardiogram 04/2022: The estimated ejection fraction is 75 %. No evidence for diastolic dysfunction. Trivial mitral valve insufficiency. ??? Echocardiogram: 06-25-2020 Interpretation Summary Normal LV size. Left ventricular systolic function is normal. The estimated ejection fraction is 65 %. Stage 1 diastolic dysfunction. Stress Test Report 06/21/2020 Procedure: Exercise tolerance test/imaging study Indications: Chest pain Consent: Per the patient Procedure: The patient exercised on a Collins protocol for 6 minutes achieving a peak heart rate of 139 bpm (92% predicted maximal heart rate) with a peak blood pressure 190/70 mmHg and a peak MET capacity of 7 METs. The baseline ECG demonstrated [sinus rhythm]. The peak exercise ECG demonstrated [about [address] depressions in the inferior and lateral leads, but a 6 beat run of nonsustained V. tach]. EKG during recovery revealed return of ST segments to baseline [There were no cardiac dysrhythmias pretest, during exercise, or recovery]. The functional capacity was considered normal for age. Patient had chest pain with exertion. The examination was discontinued secondary to achieving target heart rate. Impression: 1. Technically adequate (percent predicted maximal heart rate greater than 85%) exercise tolerance test 2. Stress test is positive for exercise-induced EKG changes of ischemia 3. The test test is positive for exercise-induced chest pain 4. Functional capacity is normal for age 5. Nuclear images pending Myocardial perfusion imaging study: Technique: The patient was injected with [] mCi of technetium 99m Cardiolite and subsequently rest SPECT Cardiolite nuclear imaging was obtained in the horizontal long, vertical long, and short axis views. The patient exercised on a Collins protocol. Please see above for details. The patient was injected with [] mCi of technetium 99m Cardiolite and subsequently stress SPECT Cardiolite nuclear imaging was obtained in the horizontal long, vertical long, and short axis views. A gated Cardiolite study at peak stress was obtained. Interpretation: Rest and stress SPECT Cardiolite nuclear imaging status post realignment, normalization, and attenuation correction, demonstrates normal myocardial radiotracer uptake on the stress images. There is no evidence of significant ischemia or infarction. The gated Cardiolite study demonstrates no significant regional wall motion abnormalities. The reported LVEF is greater than 70%. Impression: 1. There is no evidence of significant ischemia or infarction. Please see the EKG portion above as well. 2. The gated Cardiolite study reports an LVEF of greater than 70%. Heart catheterization from 08/28/2020: CONCLUSIONS Elevated Left Ventricular End Diastolic Pressure Normal LV size, wall motion,and systolic function LVEF: by LV gram 65 % Pala Multivessel CAD (non angiographically significant appearing) RECOMMENDATIONS Risk factor modification Medical therapy CORONARY ANGIOGRAPHY DOMINANCE: Right Dominant LEFT HEART ASSESSMENT Left Ventricular Ejection Fraction: by LV Gram 65 % Normal LV wall motion Elevated Left Ventricular End Diastolic Pressure LVEDP: 22 mmHg LEFT MAIN: Angiographically normal LEFT ANTERIOR DESCENDING ARTERY: PROX LAD: Mild luminal irregularities DIAGONAL 1: high diagoal branch: small vessel: ostial: smooth: 25 % Stenosis CIRCUMFLEX ARTERY: MID CIRC: Mild luminal irregularities RIGHT CORONARY ARTERY: Angiographically normal AORTIC ROOT: Angiographically normal Holter monitor: 08-23-2020 Sinus rhythm Frequent PACs, atrial couplets, atrial bigeminy, atrial trigeminy, atrial runs with the longest run being 18 beats of probable ectopic atrial rhythm and the fastest run being 4 beats at approximately 176 bpm Occasional PVCs, rare ventricular couplets, ventricular bigeminy/trigeminy, no wide-complex runs Symptoms reported occasionally correlated with underlying ectopy/tachycardia. Labs: LDL Cholesterol 121 mg/dL (0-130) HDL Cholesterol 54 mg/dL (40-) Cholesterol 186 mg/dL (200) Triglycerides 54 mg/dL (-199) Diagnostics: Electrocardiogram Echocardiogram Stress Test Stress Test Nuclear Medicine Cardiac Catheterization Chest X-Ray Pulmonary: No Data to Display Past Visits: No Data to Display Assessment and Plan Assessment and Plan (1) Paroxysmal atrial fibrillation with RVR: Status: Chronic Plan: Patient has a history of paroxysmal atrial fibrillation with RVR. She appears to be in a normal rhythm on exam today. Her heart rate is well controlled at this time. She has recently followed with EP???Dr. Andrade. At that time he did recommend either an ablation, or antiarrhythmic therapy. She would like to proceed with an antiarrhythmic first if needed. Her most recent cardiac catheterization from 08/28/2020 demonstrated 25% stenosis in her diagonal 1. Her most recent echocardiogram from 05/03/2022 demonstrated an estimated ejection fraction of 75%, and normal atrial size. At this time, she will continue metoprolol succinate 100 mg daily, and Eliquis 5 mg twice daily. She will continue to monitor for any concerning symptoms of atrial fibrillation. (2) WPW (Azkpw-Cnuezjsdr-Faxew syndrome): Status: Resolved Plan: Patient has a history of Tqfqq-Bzcokhojx-Cbhwa syndrome. She is status post ablation for this. She has not had any recurrence. (3) SVT (supraventricular tachycardia): Status: Resolved Plan: Patient has a history of supraventricular tachycardia. She denies any recent symptoms or events. She will continue metoprolol succinate 100 mg daily. She will continue to monitor for any concerning symptoms. Plan Details Additional Comments: Patient will follow up 6 months, or sooner if needed. Thank you for allowing me to participate in the care of your patient. Please don't hesitate to call if any issues arise. This note was generated using a voice recognition system and there may be incorrect words, spelling, or punctuation that were not noted when reviewing the office note prior to saving. Portions of this documentation were copied and pasted from previous office visit notes to provide a cohesive continuity of the history. The note has been reviewed, edited, and updated, as necessary. Follow Up: 6 Months ([employer]) Coding Level of Care Code Off vis,est,level 3 Diagnoses Paroxysmal atrial fibrillation with RVR I48.0 WPW (Sphpw-Bbvzuyhwa-Rvcwz syndrome) I45.6 SVT (supraventricular tachycardia) I47.1 Coding Level of Care Code Off vis,est,level 3 Diagnoses Paroxysmal atrial fibrillation with RVR I48.0 WPW (Lhluc-Uxaffkevh-Esadp syndrome) I45.6 SVT (supraventricular tachycardia) I47.1 11/14/22 0176 <Electronically signed by Gisel Quezada NP [employer]> Date ___ Gisel HERNANDEZC Cosigner Signature: Date ___ (if applicable) CC: Dr. Ana Lilia Sagastume, Ana Lilia Sagastume DO Work Phone: Start: 08-01-2022 End: 08-01-2022 Procedure Note: See Note; NOTES: [facility] [address] [place] [address] OFFICE VISIT Date of Service: 08/01/22 MR#: [id number] Acct: [id number] Name: YADY COOMBS Rep #: [id number] : 1950 Provider: MORGAN mendes Age/Sex: 71/F [place] [facility] [place] Status: Signed HPI HPI History of Present Illness Details: Yady Coombs is a 71 year-old white female who presents to the office for a cardiovascular ER follow- up visit. She has a history of atrial fibrillation with RVR, chest discomfort, and an abnormal exercise tolerance test superimposed upon a history of WPW status post EPS/RFA (2002). She was in the ER on 03/11/2022 for Afib with RVR, she did convert on her own. She notes that this lasted approx 1.5 hours. She states she has had multiple episodes of atrial fibrillation. She has recently followed with Dr. Andrade-JUVENCIO for possible ablation vs antiarrhythmic. Patient presented to the emergency room on 07/20/2022 with complaints of palpitations and mild lightheadedness. Her EKG at that time demonstrated atrial fibrillation with heart rate of 152 bpm. She was given Cardizem IV drip and did convert back to normal sinus rhythm. She was admitted for observation and discharged home to follow with cardiology and electrophysiology. From a cardiac standpoint, the patient is doing well. She does have an occasional palpitation-she describes this as a fast beat. She denies chest pain, pressure or heaviness. She does acknowledge SOB, but states she has been dealing with URI. She denies Orthopnea, and PND. She does not have bleeding issues; no blood in urine, stool or nosebleeds. She does have ongoing fatigue. She denies myalgias, or claudication. She does not have edema, or sudden weight gain. She does have occasional lightheadedness. She denies dizziness, syncopal or near syncopal episodes, and headaches. 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 Metal Required: No Accompanied by: None Is patient in pain?: No Allergies anesthesia Adverse Reaction (Uncoded 08/01/22 14:53) Nausea Vomiting Medications chlorthalidone 25 mg tablet 25 mg PO DAILY blood pressure 12/06/19 [History Confirmed 08/01/22] duloxetine 60 mg capsule,delayed release 60 mg PO DAILY DEPRESSION 12/06/19 [History Confirmed 08/01/22] alendronate 70 mg tablet 70 mg PO SA OSTEOPEROSIS 05/28/21 [History Confirmed 08/01/22] levothyroxine 112 mcg tablet (Synthroid) 112 mcg PO DAILY THYROID 12/13/21 [History Confirmed 08/01/22] apixaban 5 mg tablet (Eliquis) 5 mg PO BID AFIB 05/03/22 [History Confirmed 08/01/22] metoprolol succinate 100 mg tablet,extended release 24 hr 100 mg PO DAILY BLOOD PRESSURE 05/03/22 [History Confirmed 08/01/22] potassium chloride 20 mEq tablet,extended release 1 ea PO BID SUPPLEMENT 06/16/22 [History Confirmed 08/01/22] beclomethasone dipropionate 80 mcg/actuation HFA breath activated aerosol (Qvar RediHaler) 2 inh inhalation BID COUGH 07/20/22 [History Confirmed 08/01/22] calcium carbonate 500 mg-vitamin D3 10 mcg (400 unit) tablet (Calcium 500 + D) 1 tab PO QHS SUPPLEMENT 07/20/22 [History Confirmed 08/01/22] albuterol sulfate 90 mcg/actuation aerosol inhaler 2 inh inhalation 4X/DAY PRN COUGH 08/01/22 [History Confirmed 08/01/22] cholecalciferol (vitamin D3) 50 mcg (2,000 unit) tablet 100 mcg PO DAILY 08/01/22 [History Confirmed 08/01/22] [facility] Medical History Abnormal mammogram of left breast Cataract Chest pain Chronic anticoagulation COVID-19 (04/23/21) Depression Essential hypertension Family history of LA (myocardial infarction) History of Cekzf-Hlaujexuo-Oqyhz (WPW) syndrome Hypothyroidism Over 65 years old Paroxysmal atrial fibrillation with RVR SVT (supraventricular tachycardia) WPW (Gtetb-Hdjtzioce-Thhbv syndrome) Surgical History History of bilateral cataract extraction ( 02/2022) History of cardiac radiofrequency ablation History of left heart catheterization (LHC) ( 08/28/20) History of radiofrequency ablation procedure for cardiac arrhythmia ( 2002) History of surgery on left wrist Family History Other Diabetes Heart disease Hypertension Myocardial infarction Social History Smoking Status: Never smoker alcohol intake: never substance use type: does not use caffeine: Yes Type: tea Number of servings: 6 ROS Const Const: Positive for fatigue (ongoing); Negative for weakness, headache(s), frequent falls, difficulty sleeping or excessive sweating Eyes Eyes: Negative for loss of peripheral vision, transient loss of vision, blurry vision, double vision or tunnel vision ENT ENT: Negative for headache(s), dizziness, Nosebleed/epistaxis or balance problems Cardio Chest Pain: No Palpitations: Yes (occasional (atrial fibrillation)) feels like its: fast Edema: None Muscle aches with walking: None Resp Respiratory: Positive for SOB with activity (she is attributing this to an URI); Negative for SOB at rest, SOB orthopnea SOB lying down, Cough or paroxysmal nocturnal dyspnea GI GI: Negative nausea, vomiting, heartburn or black,tarry stools : Negative for hematuria Musc Musc: Negative for muscle aches/ myalgia, muscle weakness, joint pain or balance problems Skin Skin: Negative non-healing lesions, rash or unusual bruising Neuro Neuro: Positive for lightheadedness (occasional); Negative for dizziness, near syncope, syncope, frequent falls, headache(s), weakness, blurry vision, double vision or lack of coordination Vadim Hematologic/Lymphatic: Negative for easy bleeding or easy bruising Endo Endo: Positive for fatigue (ongoing); Negative for excessive sweating or increased thirst/drinking Psych Psych: Negative for anxiety or depression Allergy Allergy/Immunology: Negative for hives and Negative for rash Cardiology Exam Const Appearance: cooperative, healthy appearing, comfortable, no acute distress and well developed Orientation: alert, awake and oriented x3 Head Head: normal to inspection Ears: hearing grossly normal bilaterally Nose: external nose normal Face and Sinus: face symmetric Eyes General: appearance normal, both eyes and all related structures Eyelids: eyelids normal Conjunctivae: conjunctivae normal Pupils: PERRL EOM: EOM intact bilaterally Neck Neck: normal visual inspection and trachea midline; Negative no JVD Carotids: Negative bruit Chest Chest inspection: normal inspection of the chest Auscultation: Bilateral: Clear to Auscultation Cardio Palpation: normal PMI Rate: regular rate Rhythm: regular rhythm Heart sounds: S1 normal and S2 normal; Negative rub, gallop or murmur GI GI: normal to inspection and soft Neuro General: patient alert, patient awake, patient oriented x3 and CN's II-XI intact bilaterally Extremities Pulses: Normal: Right Posterior Tibial Pulse, Left Posterior Tibial Pulse, Right Radial Pulse and Left Radial Pulse Lower Extremity Edema: None: Bilateral Psych Psychological: normal affect Supplemental Info Supplemental Information Echocardiogram 04/2022: The estimated ejection fraction is 75 %. No evidence for diastolic dysfunction. Trivial mitral valve insufficiency. ??? Echocardiogram: 06-25-2020 Interpretation Summary Normal LV size. Left ventricular systolic function is normal. The estimated ejection fraction is 65 %. Stage 1 diastolic dysfunction. Stress Test Report 06/21/2020 Procedure: Exercise tolerance test/imaging study Indications: Chest pain Consent: Per the patient Procedure: The patient exercised on a Collins protocol for 6 minutes achieving a peak heart rate of 139 bpm (92% predicted maximal heart rate) with a peak blood pressure 190/70 mmHg and a peak MET capacity of 7 METs. The baseline ECG demonstrated [sinus rhythm]. The peak exercise ECG demonstrated [about [address] depressions in the inferior and lateral leads, but a 6 beat run of nonsustained V. tach]. EKG during recovery revealed return of ST segments to baseline [There were no cardiac dysrhythmias pretest, during exercise, or recovery]. The functional capacity was considered normal for age. Patient had chest pain with exertion. The examination was discontinued secondary to achieving target heart rate. Impression: 1. Technically adequate (percent predicted maximal heart rate greater than 85%) exercise tolerance test 2. Stress test is positive for exercise-induced EKG changes of ischemia 3. The test test is positive for exercise-induced chest pain 4. Functional capacity is normal for age 5. Nuclear images pending Myocardial perfusion imaging study: Technique: The patient was injected with [] mCi of technetium 99m Cardiolite and subsequently rest SPECT Cardiolite nuclear imaging was obtained in the horizontal long, vertical long, and short axis views. The patient exercised on a Collins protocol. Please see above for details. The patient was injected with [] mCi of technetium 99m Cardiolite and subsequently stress SPECT Cardiolite nuclear imaging was obtained in the horizontal long, vertical long, and short axis views. A gated Cardiolite study at peak stress was obtained. Interpretation: Rest and stress SPECT Cardiolite nuclear imaging status post realignment, normalization, and attenuation correction, demonstrates normal myocardial radiotracer uptake on the stress images. Th ere is no evidence of significant ischemia or infarction. The gated Cardiolite study demonstrates no significant regional wall motion abnormalities. The reported LVEF is greater than 70%. Impression: 1. There is no evidence of significant ischemia or infarction. Please see the EKG portion above as well. 2. The gated Cardiolite study reports an LVEF of greater than 70%. Heart catheterization from 08/28/2020: CONCLUSIONS Elevated Left Ventricular End Diastolic Pressure Normal LV size, wall motion,and systolic function LVEF: by LV gram 65 % Pala Multivessel CAD (non angiographically significant appearing) RECOMMENDATIONS Risk factor modification Medical therapy CORONARY ANGIOGRAPHY DOMINANCE: Right Dominant LEFT HEART ASSESSMENT Left Ventricular Ejection Fraction: by LV Gram 65 % Normal LV wall motion Elevated Left Ventricular End Diastolic Pressure LVEDP: 22 mmHg LEFT MAIN: Angiographically normal LEFT ANTERIOR DESCENDING ARTERY: PROX LAD: Mild luminal irregularities DIAGONAL 1: high diagoal branch: small vessel: ostial: smooth: 25 % Stenosis CIRCUMFLEX ARTERY: MID CIRC: Mild luminal irregularities RIGHT CORONARY ARTERY: Angiographically normal AORTIC ROOT: Angiographically normal Holter monitor: 08-23-2020 Sinus rhythm Frequent PACs, atrial couplets, atrial bigeminy, atrial trigeminy, atrial runs with the longest run being 18 beats of probable ectopic atrial rhythm and the fastest run being 4 beats at approximately 176 bpm Occasional PVCs, rare ventricular couplets, ventricular bigeminy/trigeminy, no wide-complex runs Symptoms reported occasionally correlated with underlying ectopy/tachycardia. Labs: LDL Cholesterol 123 mg/dL (0-130) HDL Cholesterol 68 mg/dL (40-) Triglycerides 67 mg/dL (-199) INR 1.0 Diagnostics: Electrocardiogram Echocardiogram Stress Test Stress Test Nuclear Medicine Cardiac Catheterization Chest X-Ray Pulmonary: No Data to Display Past Visits: No Data to Display Assessment and Plan Assessment and Plan (1) Paroxysmal atrial fibrillation with RVR: Status: Chronic Plan: Patient has a history of paroxysmal atrial fibrillation with RVR. She appears to be in a normal rhythm on exam today. Her heart rate is well controlled at this time. She has recently followed with EP???Dr. Andrade. At that time he did recommend either an ablation, or antiarrhythmic therapy. She would like to proceed with an antiarrhythmic. Her most recent cardiac catheterization from 08/28/2020 demonstrated 25% stenosis in her diagonal 1. Her most recent echocardiogram from 05/03/2022 demonstrated an estimated ejection fraction of 75%, and normal atrial size. It was recommended for the patient to follow with Dr. Andrade for initiation of antiarrhythmic therapy. At this time, she will continue metoprolol succinate 100 mg daily, and Eliquis 5 mg twice daily. She will continue to monitor for any concerning symptoms of atrial fibrillation. (2) WPW (Nwtpo-Stfcttyik-Ilvet syndrome): Status: Resolved Plan: Patient has a history of Ycrfp-Wkuavxovn-Vshgc syndrome. She is status post ablation for this. She has not had any recurrence. (3) SVT (supraventricular tachycardia): Status: Resolved Plan: Patient has a history of supraventricular tachycardia. She denies any recent symptoms or events. She will continue metoprolol succinate 100 mg daily. She will continue to monitor for any concerning symptoms. Plan Details Additional Comments: Patient will follow up in 3-4 months, or sooner if needed. Thank you for allowing me to participate in the care of your patient. Please don't hesitate to call if any issues arise. This note was generated using a voice recognition system and there may be incorrect words, spelling, or punctuation that were not noted when reviewing the office note prior to saving. Portions of this documentation were copied and pasted from previous office visit notes to provide a cohesive continuity of the history. The note has been reviewed, edited, and updated, as necessary. Follow Up: 3-4 Months ([employer]) Cancel 02/16/2023 appt Coding Level of Care Code Off vis,est,level 3 Diagnoses Paroxysmal atrial fibrillation with RVR I48.0 WPW (Recyr-Rlbiunryl-Wkwdp syndrome) I45.6 SVT (supraventricular tachycardia) I47.1 Coding Level of Care Code Off vis,est,level 3 Diagnoses Paroxysmal atrial fibrillation with RVR I48.0 WPW (Nqnon-Tyiayhxhx-Giyzu syndrome) I45.6 SVT (supraventricular tachycardia) I47.1 08/01/22 1502 <Electronically signed by Gisel MORA> Date ___ Gisel MORA Cosigner Signature: Date ___ (if applicable) CC: DO Ana Lilia Fajardo DO Work Phone: Start: 07-20-2022 Plain chest X-ray Dr. Ana Lilia Sagastume Work Phone: Start: 07-20-2022 End: 07-20-2022 Procedure Note: See Note; NOTES: [facility] [address] [place] [address] Chest 1 View (Portable) MR#: [id number] Acct: [id number] Name: YADY COOMBS Rep #: [id number] : 1950 F 71 From: Rebecca Magana MD PCP: Dr. Ana Lilia Sagastume DO Status: REG ER Study: Chest 1 View (Portable) Date of Exam: 07/20/22 Exam# [id number] Ordering Dr: Dung Myles DO INDICATION: cough EXAMINATION/TECHNIQUE: X-RAY - XR Chest 1 View COMPARISON: May 03, 2022 FINDINGS: LINES/DEVICES: None. LUNGS: There is no new focal consolidation. MEDIASTINUM AND CARDIOVASCULAR STRUCTURES: Cardiac silhouette not enlarged. Central airways and mediastinal contour are unremarkable. BONES AND SOFT TISSUES: Unremarkable. RAD/Chest 1 View (Portable) IMPRESSION: No radiographic evidence of acute cardiopulmonary disease. Electronically Signed: Rebecca Magana MD at 10:41 EST , CC: Dr. Ana Lilia Sagastume DO; Dr. Dung Myles DO Financial Counselor: Signed Ana Lilia Sagastume DO Work Phone: Start: 07-11-2022 Ecg routine ecg w/least 12 lds w/i&r Mikel Andrade MD Work Phone: Start: 07-03-2022 Dual energy X-ray absorptiometry Dr. Ana Lilia Sagastume Work Phone: Start: 07-03-2022 End: 07-04-2022 Procedure Note: See Note; NOTES: [facility] [address] [place] [address] Dexa Bone Density Study MR#: [id number] Acct: [id number] Name: YADY COOMBS Rep #: [id number] : 1950 F 71 From: Kenton ferris MD PCP: Dr. Ana Lilia Sagastume DO Status: REG CLI Study: Dexa Bone Density Study Date of Exam: 07/03/22 Exam# [id number] Ordering Dr: Ana Lilia Sagastume DO STUDY: DUAL ENERGY X-RAY ABSORPTIOMETRY / DXA REASON FOR EXAM: Female, 71 years old. Z780 -- post menopausal TECHNIQUE: Bone Mineral Density (BMD) measurements of lumbar spine and bilateral hips were obtained. COMPARISON: Comparison is made with prior study dated 12/15/2019. ___ FINDINGS: Lumbar Spine (L1-L4): g/cm2 (1.087) / T-score (0.4) / Z-score (2.6) Findings are suggestive of normal bone density with a low fracture risk. Left Femur Total: g/cm2 (0.858) / T-score (-0.7) / Z-score (0.9) Left Femoral Neck: g/cm2 (0.720) / T-score (-1.2) / Z-score (0.7) Right Femur Total: g/cm2 (0.763) / T-score (-1.5) / Z-score (0.1) Right Femoral Neck: g/cm2 (0.704) / T-score (-1.3) / Z-score (0.6) The T-Scores on the most recent prior examination were: Lumbar Spine (L1-L4): There has been improvement of bone density since the previous examination. Left Femur Total: which represents a worsening of 10.5%. Right Femur Total: which represents a worsening of 5.2%. ___ BD/Dexa Bone Density Study IMPRESSION: The patient is considered osteopenic as outlined below according to World Tristin Organization (WHO) criteria with a low fracture risk. There has been worsening of bone density since the previous examination. ___ Reference Information: The T-score is the number of standard deviations above or below the standard which is normal for young adults at their peak bone mineral density. The World Health Organization (WHO) interprets the T-scores as follows: Above -1 Normal bone density Between -1 and -2.5 Osteopenia Equal to / or below -2.5 Osteoporosis As a practical clinical guideline, osteopenia may be graded as follows: Mild -1 through -1.5 Moderate -1.6 through -2.0 Severe -2.1 through -2.4 The Z-score is the number of standard deviations above or below age-matched controls. A Z-score of less than -1.5 would be considered abnormal. References: 1. NIH Osteoporosis and Related Bone Diseases www osteo.org 2. International Society for Clinical Densitometry www iscd.org 3. National Osteoporosis Foundation www nof.org Electronically Signed: Kenton Person MD at 8:20 EST Reading Location ID and State: [facility] / [place] , Service support , CC: Dr. Ana Lilia Sagastume DO Financial Counselor: Signed Ana Lilia Sagastume DO Work Phone: Start: 07-03-[address] Ana Lilia Sagastume Work Phone: Start: 07-03-2022 End: 07-04-2022 Procedure Note: See Note; NOTES: [facility] Services [address] [place] [address] SCRN MAMM (CAD)W/LEESA BILAT MR#: [id number] Acct: [id number] Name: YADY COOMBS Rep #: [id number] : 1950 F 71 From: Kenton ferris MD PCP: Dr. Ana Lilia Sagastume DO Status: REG CLI Study: SCRN MAMM (CAD)W/LEESA BILAT Date of Exam: 02/14 Exam# [id number] Ordering Dr: Ana Lilia Sagastume DO MAMMOGRAPHY - BILATERAL SCREENING REASON FOR EXAM: Female, 71 years old. Routine annual screening examination. PERTINENT HISTORY: Non-contributory. Prior left stereotactic guided breast biopsy. TECHNIQUE: Digital bilateral breast leesa (3D mammographic acquisition) in the CC and MLO projections. 2-D mediolateral oblique (MLO) and craniocaudad (CC) views of both breasts were obtained. CAD: Full Field Digital Mammography with Computer Added Detection was performed. COMPARISON: Comparison is made with prior examination of 05/10/2021 and 12/15/2019. ___ FINDINGS: Breast Composition: The breasts are almost entirely fatty. There are no dominant masses or suspicious calcifications. A tissue clip marker is seen in the deep upper outer aspect of the left breast. The previously seen 8 mm nodular density is not seen at this time. Stable benign-appearing bilateral axillary lymph nodes. No other significant abnormalities are identified. There has been no significant change since the prior study. ___ BI/SCRN MAMM (CAD)W/LEESA BILAT IMPRESSION: Stable bilateral screening mammogram. Yearly follow-up mammogram recommended. (A) ___ ASSESSMENT CATEGORY: BIRADS Category 2: Benign. A letter regarding these results will be sent to the patient by the facility within 30 days. Approximately 10% of breast cancers are not detected by mammography. A normal mammogram should not delay biopsy of a clinically suspicious abnormality. [id number] Electronically Signed: Kenton Person MD at 8:11 EST Reading Location ID and State: [address] [place] [address] , Service support , CC: Dr. Ana Lilia Sagastume DO Financial Counselor: Signed Ana Lilia Sagastume DO Work Phone: Start: 06-16-2022 End: 06-16-2022 Procedure Note: See Note; NOTES: [facility] [address] [place] [address] OFFICE VISIT Date of Service: 06/16/22 MR#: [id number] Acct: [id number] Name: YADY COOMBS Rep #: [id number] : 1950 Provider: ALBAN Camargo Age/Sex: 71/F [place] [facility] [place] Status: Signed HPI [facility] History of Present Illness Details: Yady Coombs is a 71 year-old white female that presents today for an ER follow up for Afib with RVR. 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 She was in the ER on 03/11/2022 for Afib with RVR, she did concert on her own. She notes that this lasted approx 1.5 hours. There was some question of Afib last May in which she did have worked up. Pt did have one episode of Afib where shew as in the hospital over night. She was stress that week at a loss of a friend and was also hypokalemic. She does not have any chest pain. She does not have any worsening SOB. She is getting over a URI. She does sometimes have lightheadedness, thinks that this is related to her URI. She does not have any edema. She has a blood flow screening tomorrow. Intake Vital Signs 03/19/22 13:01 06/14/22 10:44 06/16/22 14:27 06/16/22 14:31 Height 5 ft 2 in 5 ft 2 in 5 ft 2 in 5 ft 2 in Weight: 159 lb 160 lb BMI 29.0 29.2 BP 132/64 H Blood Pressure Location Lt brachial Position Sitting Respiration 16 Pulse 64 Pulse Source Monitor Temp 97.4 F L Pulse Oximetry (%) 99 Oxygen Delivery Method room air Intake Visit Reasons: 3 M FU Allergies No Known Allergies Allergy (Verified 03/19/22 13:06) anesthesia Adverse Reaction (Uncoded 03/19/22 13:06) Nausea Vomiting Medications cholecalciferol (vitamin D3) 50 mcg (2,000 unit) capsule 4,000 unit PO DAILY vitamin 07/05/16 [History Confirmed 06/16/22] chlorthalidone 25 mg tablet 25 mg PO DAILY blood pressure 12/06/19 [History Confirmed 06/16/22] duloxetine 60 mg capsule,delayed release 60 mg PO DAILY depression 12/06/19 [History Confirmed 06/16/22] alendronate 70 mg tablet 70 mg PO QHS osteoposis 05/28/21 [History Confirmed 06/16/22] calcium carbonate 600 mg calcium (1,500 mg) tablet 1,200 mg PO DAILY calcium 05/28/21 [History Confirmed 06/16/22] levothyroxine 112 mcg tablet (Synthroid) 112 mcg PO DAILY hypothyroid 12/13/21 [History Confirmed 06/16/22] apixaban 5 mg tablet (Eliquis) 5 mg PO BID afib 05/03/22 [History Confirmed 06/16/22] beclomethasone dipropionate 80 mcg/actuation aerosol inhaler 80 mcg inhalation fibrosis 05/03/22 [History Confirmed 06/16/22] metoprolol succinate 100 mg tablet,extended release 24 hr 100 mg PO DAILY blood pressure 05/03/22 [History Confirmed 06/16/22] amoxicillin 500 mg tablet 500 mg PO BID #20 tabs 06/14/22 [Rx Confirmed 06/16/22] prednisone 10 mg tablet 10 mg PO .COMPLEX #30 tabs 06/14/22 [Rx Confirmed 06/16/22] potassium chloride 20 mEq tablet,extended release ea PO 06/16/22 [History Confirmed 06/16/22] [facility] Medical History (Updated 06/16/22 @ 14:43 by Leila PHOENIX, PA) Abnormal mammogram of left breast Cataract Chest pain Chronic anticoagulation COVID-19 (04/23/21) Depression Essential hypertension Family history of LA (myocardial infarction) History of Syodu-Jmscenfcp-Bbdcy (WPW) syndrome Hypothyroidism Over 65 years old Paroxysmal atrial fibrillation with RVR SVT (supraventricular tachycardia) WPW (Lpdsa-Fwrzoeyik-Iftiq syndrome) Surgical History History of bilateral cataract extraction ( 02/2022) History of cardiac radiofrequency ablation History of left heart catheterization (LHC) ( 08/28/20) History of radiofrequency ablation procedure for cardiac arrhythmia ( 2002) History of surgery on left wrist Family History Other Diabetes Heart disease Hypertension Myocardial infarction Social History Smoking Status: Never smoker alcohol intake: never substance use type: does not use caffeine: Yes Type: tea Number of servings: 6 ROS Const Const: Negative for fatigue, weakness, headache(s), frequent falls, excessive sweating, weight gain or weight loss Eyes Eyes: Negative for blind spots, loss of peripheral vision, transient loss of vision, blurry vision, change in vision or double vision ENT ENT: Negative for headache(s), dizziness, tinnitus, Nosebleed/epistaxis or balance problems Cardio Chest Pain: No Palpitations: Yes Edema: None Muscle aches with walking: None Resp Respiratory: Negative for SOB with activity, SOB at rest, SOB orthopnea SOB lying down or Cough GI GI: Negative nausea, vomiting, heartburn, bloating, vomiting blood/hematemesis, bright, red blood in stools or black,tarry stools : Negative for hematuria Musc Musc: Negative for muscle aches/ myalgia, muscle weakness, joint pain or balance problems Skin Skin: Negative rash or wounds Neuro Neuro: Negative for dizziness, lightheadedness, near syncope, syncope, orthostatic symptoms, frequent falls, headache(s), weakness, confusion, memory loss, restless legs, blurry vision or double vision Vadim Hematologic/Lymphatic: Negative for easy bleeding or easy bruising Endo Endo: Negative for fatigue, cold intolerance, heat intolerance or excessive sweating Psych Psych: Negative for anxiety or depression Allergy Allergy/Immunology: Negative for rash Cardiology Exam Const Appearance: cooperative, healthy appearing, comfortable, no acute distress and well developed Orientation: alert, awake and oriented x3 Head Head: normal to inspection Ears: hearing grossly normal bilaterally Nose: external nose normal Face and Sinus: face symmetric Mouth: oral mucosae normal, lip normal and moist mucous membranes Eyes General: appearance normal, both eyes and all related structures Eyelids: eyelids normal Conjunctivae: conjunctivae normal Pupils: PERRL EOM: EOM intact bilaterally Neck Neck: normal visual inspection and trachea midline; Negative no JVD Carotids: Negative bruit Chest Chest inspection: normal inspection of the chest Auscultation: Bilateral: Clear to Auscultation Cardio Palpation: normal PMI Rate: regular rate Rhythm: regular rhythm Heart sounds: S1 normal and S2 normal; Negative rub, gallop or murmur GI GI: soft, no hepatosplenomegaly and bowel sounds present Neuro General: patient alert, patient awake, patient oriented x3 and CN's II-XI intact bilaterally Extremities Pulses: Normal: Right Posterior Tibial Pulse, Left Posterior Tibial Pulse, Right Radial Pulse and Left Radial Pulse Lower Extremity Edema: None: Bilateral Psych Psychological: normal affect Supplemental Info Supplemental Information Echocardiogram 04/2022: The estimated ejection fraction is 75 %. No evidence for diastolic dysfunction. Trivial mitral valve insufficiency. ??? Echocardiogram: 06-25-2020 Interpretation Summary Normal LV size. Left ventricular systolic function is normal. The estimated ejection fraction is 65 %. Stage 1 diastolic dysfunction. Stress Test Report Date: 06/21/2020 Procedure: Exercise tolerance test/imaging study Indications: Chest pain Consent: Per the patient Procedure: The patient exercised on a Collins protocol for 6 minutes achieving a peak heart rate of 139 bpm (92% predicted maximal heart rate) with a peak blood pressure 190/70 mmHg and a peak MET capacity of 7 METs. The baseline ECG demonstrated [sinus rhythm]. The peak exercise ECG demonstrated [about [address] depressions in the inferior and lateral leads, but a 6 beat run of nonsustained V. tach]. EKG during recovery revealed return of ST segments to baseline [There were no cardiac dysrhythmias pretest, during exercise, or recovery]. The functional capacity was considered normal for age. Patient had chest pain with exertion. The examination was discontinued secondary to achieving target heart rate. Impression: 1. Technically adequate (percent predicted maximal heart rate greater than 85%) exercise tolerance test 2. Stress test is positive for exercise-induced EKG changes of ischemia 3. The test test is positive for exercise-induced chest pain 4. Functional capacity is normal for age 5. Nuclear images pending Myocardial perfusion imaging study: Technique: The patient was injected with [] mCi of technetium 99m Cardiolite and subsequently rest SPECT Cardiolite nuclear imaging was obtained in the horizontal long, vertical long, and short axis views. The patient exercised on a Collins protocol. Please see above for details. The patient was injected with [] mCi of technetium 99m Cardiolite and subsequently stress SPECT Cardiolite nuclear imaging was obtained in the horizontal long, vertical long, and short axis views. A gated Cardiolite study at peak stress was obtained. Interpretation: Rest and stress SPECT Cardiolite nuclear imaging status post realignment, normalization, and attenuation correction, demonstrates normal myocardial radiotracer uptake on the stress images. There is no evidence of significant ischemia or infarction. The gated Cardiolite study demonstrates no significant regional wall motion abnormalities. The reported LVEF is greater than 70%. Impression: 1. There is no evidence of significant ischemia or infarction. Please see the EKG portion above as well. 2. The gated Cardiolite study reports an LVEF of greater than 70%. Heart catheterization from 08/28/2020: CONCLUSIONS Elevated Left Ventricular End Diastolic Pressure Normal LV size, wall motion,and systolic function LVEF: by LV gram 65 % Pala Multivessel CAD (non angiographically significant appearing) RECOMMENDATIONS Risk factor modification Medical therapy CORONARY ANGIOGRAPHY DOMINANCE: Right Dominant LEFT HEART ASSESSMENT Left Ventricular Ejection Fraction: by LV Gram 65 % Normal LV wall motion Elevated Left Ventricular End Diastolic Pressure LVEDP: 22 mmHg LEFT MAIN: Angiographically normal LEFT ANTERIOR DESCENDING ARTERY: PROX LAD: Mild luminal irregularities DIAGONAL 1: high diagoal branch: small vessel: ostial: smooth: 25 % Stenosis CIRCUMFLEX ARTERY: MID CIRC: Mild luminal irregularities RIGHT CORONARY ARTERY: Angiographically normal AORTIC ROOT: Angiographically normal Holter monitor: 08-23-2020 Sinus rhythm Frequent PACs, atrial couplets, atrial bigeminy, atrial trigeminy, atrial runs with the longest run being 18 beats of probable ectopic atrial rhythm and the fastest run being 4 beats at approximately 176 bpm Occasional PVCs, rare ventricular couplets, ventricular bigeminy/trigeminy, no wide-complex runs Symptoms reported occasionally correlated with underlying ectopy/tachycardia. Labs: No Data to Display Diagnostics: Electrocardiogram Echocardiogram Chest X-Ray Pulmonary: No Data to Display Assessment and Plan Assessment and Plan (1) Paroxysmal atrial fibrillation with RVR: Status: Chronic Plan: Pt has had 2 episodes of Atrial fib since 02/2022. Discussed options of current rate limiting medication and anticoagulation vs EP for possible ablation vs antiarrhythmic, rate limiting medication in addition to anticoagulation. She would like to be referred to EP to discuss ablation if they feel that it is indicated. In the mean time she will let us know if she has any further recurrence. (2) WPW (Gcivl-Rgkqflqqk-Qwwwa syndrome): Status: Resolved Plan: Pt has not had any recurrence since her ablation. (3) SVT (supraventricular tachycardia): Status: Resolved Orders: Referrals Electrophysiology I48.0 - Paroxysmal atrial fibrillation Plan Details Follow Up: 06/16/22 (keep as is) Coding Level of Care Code Off vis,est,level 3 Diagnoses Paroxysmal atrial fibrillation with RVR I48.0 WPW (Tcnhu-Nyuezlnqe-Nrpld syndrome) I45.6 SVT (supraventricular tachycardia) I47.1 Coding Level of Care Code Off vis,est,level 3 Diagnoses Paroxysmal atrial fibrillation with RVR I48.0 WPW (Fhgty-Rahytipgs-Yvdxe syndrome) I45.6 SVT (supraventricular tachycardia) I47.1 06/16/22 1453 <Electronically signed by Leila Ramos A> Date ___ Leila PHOENIX Cosigner Signature: Date ___ (if applicable) CC: DO Ana Lilia Fajardo DO Work Phone: Start: 06-14-2022 End: 06-14-2022 Procedure Note: See Note; NOTES: [facility] [address] [place] [address] OFFICE VISIT Date of Service: 06/14/22 MR#: [id number] Acct: [id number] Name: YADY COOMBS Rep #: [id number] : 1950 Provider: ALBAN Camargo Age/Sex: 71/F Location: [email or web address] Status: Signed Intake Vital Signs 05/03/22 03:30 06/14/22 10:44 Height 5 ft 2 in 5 ft 2 in Weight: 159 lb BMI 29.0 BP 132/64 H Blood Pressure Location Lt brachial Position Sitting Respiration 16 Pulse 64 Pulse Source Monitor Temp 97.4 F L Temp Source Temporal Pulse Oximetry (%) 99 Oxygen Delivery Method room air Intake Visit Reasons: COUGH/WHEEZING Allergies No Known Allergies Allergy (Verified 03/19/22 13:06) anesthesia Adverse Reaction (Uncoded 03/19/22 13:06) Nausea Vomiting PFSH Medical History Abnormal mammogram of left breast Cataract Chest pain COVID-19 (04/23/21) Depression Essential hypertension Family history of LA (myocardial infarction) Hypothyroidism Paroxysmal atrial fibrillation with RVR SVT (supraventricular tachycardia) WPW (Ppoax-Mwiwfayfv-Xsxpm syndrome) Surgical History History of bilateral cataract extraction ( 02/2022) History of left heart catheterization (LHC) ( 08/28/20) History of radiofrequency ablation procedure for cardiac arrhythmia ( 2002) History of surgery on left wrist Family History Other Diabetes Heart disease Hypertension Myocardial infarction Social History Smoking Status: Never smoker alcohol intake: never substance use type: does not use caffeine: Yes Type: tea Number of servings: 6 HPI HPI Details: YADY COOMBS, is a 71 F who presents to the office today for a cough over the last month. She notes that symptoms started around Hakeem, she did get better but over the last 2 weeks it has gotten worse. It is moist NPC. She is fatigued. She does have a ERVIN. Some sinus drainage. Denies: sore throat, ear pain, fevers. She has used mucinex and cough syrup. With some help. ROS Const Constitutional: Positive for other (ROS negative x 6 except what is described above) Exam Const General: cooperative, healthy appearing and no acute distress Nutritional Appearance: average body habitus Orientation: alert, awake and oriented x3 [facility] Head: normal to inspection and atraumatic Ears: hearing grossly normal bilaterally Nose: external nose normal Face and sinus: normal facial exam Mouth: oral mucosae normal Eyes General: appearance normal, both eyes and all related structures Resp Effort Inspection: normal respiratory effort Auscultation: Bilateral: Clear to Auscultation and Inspiratory Wheezes (RUL) Cardio Palpation: normal PMI Rate: regular rate Rhythm: regular rhythm Heart Sounds: S1 normal, S2 normal, no gallops, no murmurs and no rubs GI Inspection: normal to inspection Auscultation: normal bowel sounds Palpation: soft, no hepatosplenomegaly and nontender Neuro General: patient alert, patient awake, patient oriented x3 and CN's II-XI intact bilaterally Coding Level of Care Code Off vis,est,level 3 Diagnoses Acute bronchitis J20.9 Cough R05.9 Assessment and Plan Assessment and Plan (1) Acute bronchitis: Status: Acute (2) Cough: Status: Acute Medications: New amoxicillin 500 mg PO BID 20 tabs 0RF prednisone Take 4 pills for 3 days, 3 pills for 3 days, 2 pills for 3 days, take 1 pill for 3 days 30 tabs 0RF Plan Advised patient to complete course of antibiotics given. Also given prednisone. Advised patient on the importance of hydration. Recommended the use of oslk-edd-jntzdkp support from Advil, Tylenol and jvdp-vkq-wzudyxw cold medications to help alleviate symptoms. Did review maximum dosing on each of these medications to avoid accidental overdose of medications. Advised if not improving to see PCP. 06/14/22 1054 <Electronically signed by Leila Cueto> Date ___ Leila Bravo Signature: Date ___ (if applicable) CC: Ana Lilia Sagastume DO Work Phone: Start: 05-03-2022 Plain chest X-ray Dr. Ana Lilia Sagastume Work Phone: Start: 05-03-2022 End: 05-03-2022 Procedure Note: See Note; NOTES: [facility] Imaging Services [address] [place] [address] Chest 1 View (Portable) MR#: [id number] Acct: [id number] Name: YADY COOMBS Rep #: [id number] : 1950 F 71 From: Buddy Frances MD PCP: Dr. Ana Lilia Sagastume, DO Status: REG ER Study: Chest 1 View (Portable) Date of Exam: 05/03/22 Exam# [id number] Ordering Dr: Milton Cabrales MD EXAM: XR CHEST, 1 VIEW CLINICAL INDICATION: chest pain TECHNIQUE: Frontal view of the chest. This report was created using [employer] report generation technology. COMPARISON: 03/11/2022 FINDINGS: LUNGS AND PLEURAL SPACES: Bilateral lower lobe airspace disease. No pneumothorax. No effusion. HEART: Unremarkable. Cardiac silhouette not enlarged. MEDIASTINUM: Central airways and mediastinal contour are unremarkable. BONES/JOINTS: Unremarkable. SOFT TISSUES: Unremarkable. RAD/Chest 1 View (Portable) IMPRESSION: Bilateral lower lobe airspace disease. Findings may indicate pneumonia. Electronically Signed: Buddy Frances MD at 2:07 EST , CC: Dr. Milton Cabrales MD; Dr. Ana Lilia Sagastume DO Financial Counselor: Signed Ana Lilia Sagastume DO Work Phone: Start: 05-03-2022 End: 05-03-2022 Procedure Note: See Note; NOTES: [facility] Department [address] [place] [address] Emergency Department Summary 05/03/22 MR#: [id number] Acct: [id number] Name: YADY COOMBS Rep #: [id number] : 1950 71 From: Milton Cabrales MD PCP: Dr. Ana Lilia Sagastume DO Status:REG ER Location: ED HPI History of Present Illness Chief Complaint: Palpitations Detail of Chief Complaint: History of A. fib RVR diagnosed in February. On Eliquis. Informant: patient Onset/Context/Timing Onset: Today and Hours Activity at onset: sudden Timing: Continuous Worsened By: Nothing Relieved By: Nothing Associated Symptoms: Positive for Palpitations; Negative for Nausea, Vomiting, Diaphoresis, Dyspnea, Cough, Fever, Lightheadedness or Acid Reflux Narrative Narrative: 71-year-old female history of hypertension diagnosed with A. fib in February had a prior history of Ruelv-Axafwdxfw-Hmgoh and had a cardiac ablation in 2002 for that. Is on the blood thinner Eliquis for her A. fib and metoprolol. Tonight while at home sitting in bed watching a movie about 2 hours ago got accelerated heart rate. No significant chest discomfort. She denies recent illness. Prior Similar Symptoms: Yes Recent Illness/Hospitalization: No CVD Risk Factors: Negative for Diabetes PE Risk Factors: Negative for Recent Travel/Surgery, Recent Immobilization, Prior DVT or PE, Cancer or OCP + Smoking + >/=35 TAD Risk Factors: Negative for Marfan's Syndrome [facility] Medical History Abnormal mammogram of left breast Cataract Chest pain COVID-19 (04/23/21) Depression Essential hypertension Family history of LA (myocardial infarction) Hypothyroidism Paroxysmal atrial fibrillation with RVR SVT (supraventricular tachycardia) WPW (Gffmj-Ncklmotdv-Wouvq syndrome) Home Medications cholecalciferol (vitamin D3) 50 mcg (2,000 unit) capsule 4,000 unit PO DAILY 07/05/16 [History Last Taken Unknown] chlorthalidone 25 mg tablet 25 mg PO DAILY 12/06/19 [History Last Taken Unknown] duloxetine 60 mg capsule,delayed release 60 mg PO DAILY 12/06/19 [History Last Taken Unknown] alendronate 70 mg tablet 70 mg PO QWEEK 05/28/21 [History Last Taken Unknown] calcium carbonate 600 mg calcium (1,500 mg) tablet 1,200 mg PO DAILY 05/28/21 [History Last Taken Unknown] levothyroxine 112 mcg tablet (Synthroid) 112 mcg PO DAILY 12/13/21 [History Last Taken Unknown] apixaban 5 mg tablet (Eliquis) 5 mg PO BID #60 tabs 03/19/22 [Rx Last Taken Unknown] brimonidine 0.2 % eye drops 1 drp ophthalmic (eye) BID 03/19/22 [History Last Taken Unknown] metoprolol succinate 100 mg tablet,extended release 24 hr 100 mg PO DAILY #30 tabs 03/19/22 [Rx Last Taken Unknown] prednisolone acetate 1 % eye drops,suspension 1 drp ophthalmic (eye) 4X/DAY 03/19/22 [History Last Taken Unknown] Allergy/AdvReac Type Severity Reaction Status Date / Time No Known Allergies Allergy Verified 03/19/22 13:06 anesthesia AdvReac Nausea Uncoded 03/19/22 13:06 Vomiting Family History Other Diabetes Heart disease Hypertension Myocardial infarction Surgical History History of bilateral cataract extraction ( 02/2022) History of left heart catheterization (LHC) ( 08/28/20) History of radiofrequency ablation procedure for cardiac arrhythmia ( 2002) History of surgery on left wrist Social History Smoking Status: Never smoker alcohol intake: never substance use type: does not use caffeine: Yes Type: tea Number of servings: 6 ROS ROS ED ROS Narrative Denies recent illness. Review of Systems ROS Unobtainable: Denies due to encephalopathy Constitutional Constitutional ED: Denies chills or fever(s) Eyes Eyes: Reports none ENT ENT ED: Denies ear pain, rhinorrhea or sore throat Cardiovascular Cardiovascular: Reports palpitations and racing heartbeat; Denies chest pain Respiratory/Chest Respiratory/Chest: Denies cough Gastrointestinal Gastrointestinal: Denies abdominal pain, constipation, diarrhea, melena, nausea or vomiting Genitourinary Genitourinary ED: Denies dysuria or hematuria Musculoskeletal Musculoskeletal: Denies arthralgias Integumentary Denies abscess Neurologic Neurologic: Denies headache(s) Psychiatric Psychiatric: Denies anxiety Endocrine Endocrinology: Denies cold intolerance Hematologic/Lymphatic Hematologic/Lymphatic: Denies easy bleeding Allergic/Immunologic Allergic/Immunologic ED: Denies mouth swelling or tongue swelling EXAM Physical Exam Narrative Exam Narrative: This 61-year-old female resting comfortably in bed with a heart rate of 116 the 6. Blood pressure 136/74. Pulse ox 94% on room air no hypoxia. Afebrile. Does not look septic or toxic. H EENT exam unremarkable atraumatic. Neck nontender no JVD. Lungs clear to auscultation. Heart tachycardic irregularly irregular rate of 166. Abdomen soft nontender normal bowel sounds no peritoneal signs. Moving all 4 extremities. Calves are nontender without edema or cords. Neurologically she is awake and alert with no focal motor deficits. Const Vital Signs: 05/03/22 01:26 05/03/22 01:29 05/03/22 01:39 Temperature 96.0 F L 96.0 F L Temperature Source Temporal Temporal Pulse Rate 164 H 173 H Respiratory Rate 18 18 Blood Pressure 136/74 H 136/74 H Blood Pressure Mean 94 94 Pulse Ox 94 94 94 Oxygen Delivery Method Room Air Room Air Room Air Positive well nourished, well developed and unkempt; Negative for obese, cachectic or contractures General Appearance ED: unkempt and well developed; Negative for cachectic, contractures, NAD or pallor Nutritional Appearance: Negative for cachectic or obese HEENT Reports moist mucous membranes; Denies dry mucous membranes normocephalic and atraumatic; Negative for trauma or tenderness Mouth ED: No dry mucous membranes Mouth: No dry mucous membranes Eyes EOMs intact bilaterally General Eye ED: Negative for pale conjunctiva or scleral icterus Neck no lymphadenopathy, supple and no JVD General: Negative for tenderness Chest Wall inspection of chest normal and palpation of chest normal Chest: Negative for tenderness Resp normal respiratory effort and clear to auscultation bilaterally Effort and Inspection: Negative for respiratory distress Auscultation: Negative for rales, rhonchi or wheezes Cardio S1 normal heart sound, S2 normal heart sound and no murmurs; Negative for regular rate or regular rhythm Rate: tachycardic; Negative for bradycardia Rhythm: abnormal rhythm GI normal to inspection, nondistended, normoactive bowel sounds, soft to palpation, non-tender, non- distended and no masses Auscultation: Negative for hyperactive bowel sounds Palpation: Negative for splenomegaly or mass Back/Spine no CVA tenderness General Back: Negative for CVA tenderness Extremity normal to inspection General Extremety ED: Negative for edema or pulses abnormal General Extremity: Negative for edema or pulses abnormal Neuro oriented x3 and CN's II-XII intact bilaterally Sensorium / Orientation: awake, alert, oriented to person, oriented to place and oriented to time; Negative for confused, lethargic or stuporous Motor Exam: strength 5/5 throughout; Negative for general weakness Psych mental status grossly normal Appearance: unkempt Attitude: No agitated Mood Affect: Negative for depressed, anxious or tearful Skin no rashes or lesions noted and no wounds General Skin Exam: Negative for jaundice or pallor Rashes: No rashes noted Trauma: Negative for abrasion or laceration MDM MDM MDM Narrative Medical decision making narrative: 71-year-old with history of A. fib on Eliquis. Has A. fib RVR which started around 2 hours ago. She will be treated with IV Cardizem 25 mg. Undergo cardiac work-up. Repeat exam after the initial IV bolus of Cardizem 25 mg patient's heart rate improved but currently she remains in A. fib between 110 and 140 bpm. She will be started on a Cardizem drip. I will speak with the hospitalist about admission. Patient will also be given both oral and IV potassium due to her hypokalemia. Lab Data Attestation: I reviewed the patient's lab results. Lab results narrative: CBC shows a white count of 10.1. H H of 14.6 and 44. Platelets 313. Chemistries show potassium of 2.7 show be treated with IV and oral potassium. Gap is 7. BUN 23 creatinine 0.8. Initial troponin 17. Labs: Laboratory Results - last 24 hr 05/03/22 05/03/22 01:40 01:40 WBC 10.1 RBC 5.18 Hgb 14.6 Hct 44.5 MCV 85.9 MCH 28.2 MCHC 32.8 RDW Std Deviation 40.8 RDW Coeff of Luiza 13.0 Plt Count 313 MPV 10.8 Immature Gran % (Auto) 0.200 Neut % (Auto) 59.7 Lymph % (Auto) 27.8 Kane % (Auto) 9.4 Eos % (Auto) 2.3 Baso % (Auto) 0.6 Absolute Neuts (auto) 6.0 Absolute Lymphs (auto) 2.80 Nucleated RBC % 0 Sodium 139 Potassium 2.7 L* Chloride 104 Carbon Dioxide 28.0 Anion Gap 7 BUN 23 H Creatinine 0.85 Estim Creat Clear Calc 45.81 Est GFR (MDRD) Af Amer 84 Est GFR (MDRD) Non-Af 70 BUN/Creatinine Ratio 27.0 H Glucose 173 H Calcium 9.1 Troponin I High Sens 17 Radiography Chest X-Ray - ED: 1 View, Read by ED Physician, Heart, Mediastinum, Bony Structures and Chronic Changes Diagnostic Testing: Clinical Impression(s) from Imaging Studies Chest X-Ray 05/03/22 01:49 IMPRESSION: Bilateral lower lobe airspace disease. Findings may indicate pneumonia. Electronically Signed: Buddy Frances MD at 2:07 EST , Normal cardiac silhouette and mediastinum. Either atelectasis or possibly basilar congestion in both bases. Rhythm Strip Rhythm Strip: A-fib Rate: 178 Ectopy: None EKG Initial EKG: Attestation: I personally reviewed and interpreted this EKG as follows: Interpretation: Atrial Fibrillation Comments: Atrial fibrillation with rapid ventricular rate 178. Intraventricular conduction delay. Rate dependent ischemia with ST depression throughout. Critical Care Time Critical Care Time: Yes Critical care time (excluding procedures): 30-74 minutes, Including time spent:, Discussing w/Patient /or Family/Powdered Metal Supervisor, Discussing w/Consultants, Arranging Admission or Transfer, Performing Direct Patient Care at Bedside and - (33 minutes) Discharge Plan Dx/Rx/DC Orders Clinical Impression: Atrial fibrillation with rapid ventricular response, History of Royyu-Ovfckvvdj-Ysdgp (WPW) syndrome, History of cardiac radiofrequency ablation, Chronic anticoagulation, Acute hypokalemia Disposition Disposition: Acute Care Hospital [facility] What to do if you have Problems For any increased pain, shortness of breath, bleeding, nausea or vomiting, chest pain, or any unexpected problems, contact your Primary Care Provider. Call [facility] ([phone]) or report to the closest Emergency Room. Call 911 if necessary. 05/03/22 0236 <Electronically signed by Milton Cabrales MD> Cosigner Signature (if applicable): CC: Dr. Ana Lilia Sagastume DO Signed Ana Lilia Sagastume DO Work Phone: Start: 03-19-2022 End: 03-19-2022 Procedure Note: See Note; NOTES: [facility] [address] [place] [address] OFFICE VISIT Date of Service: 03/19/22 MR#: [id number] Acct: [id number] Name: YADY COOMBS Rep #: [id number] : 1950 Provider: ALBAN Camargo Age/Sex: 71/F [place] [facility] [place] Status: Signed [facility] History of Present Illness Details: Yady Coombs is a 71 year-old white female that presents today for an ER follow up for Afib with RVR. 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 She was in the ER on 03/11/2022 for Afib with RVR, she did concert on her own. She notes that this lasted approx 1.5 hours. There was some question of Afib last May in which she did have worked up. Patient notes that the last time that she had palpitations that were significant was when she was in the emergency room last May. This was what led to all of her cardiac testing. She does not have any chest pain. She does not have any lightheadedness dizziness. She has not had any bleeding issues. She not had any near syncope. She does not have any lower extremity edema. Intake Vital Signs 03/11/22 21:00 03/19/22 13:01 03/19/22 13:01 Height 5 ft 2 in 5 ft 2 in 5 ft 2 in Weight: 155 lb 153 lb BMI 28.3 28.0 BP 164/92 H 113/61 Blood Pressure Location Lt brachial Position Sitting Respiration 18 16 Pulse 153 H 58 L Pulse Source Monitor Temp 97 F L Pulse Oximetry (%) 100 Intake Visit Reasons: palps Pourer Metal Required: No Accompanied by: None Is patient in pain?: No Allergies No Known Allergies Allergy (Verified 03/19/22 13:06) anesthesia Adverse Reaction (Uncoded 03/19/22 13:06) Nausea Vomiting Medications cholecalciferol (vitamin D3) 50 mcg (2,000 unit) capsule 4,000 unit PO DAILY 07/05/16 [History Confirmed 03/19/22] chlorthalidone 25 mg tablet 25 mg PO DAILY 12/06/19 [History Confirmed 03/19/22] duloxetine 60 mg capsule,delayed release 60 mg PO DAILY 12/06/19 [History Confirmed 03/19/22] alendronate 70 mg tablet 70 mg PO QWEEK 05/28/21 [History Confirmed 03/19/22] calcium carbonate 600 mg calcium (1,500 mg) tablet 1,200 mg PO DAILY 05/28/21 [History Confirmed 03/19/22] levothyroxine 112 mcg tablet (Synthroid) 112 mcg PO DAILY 12/13/21 [History Confirmed 03/19/22] apixaban 5 mg tablet (Eliquis) 5 mg PO BID #60 tabs 10/26/22 [Rx Confirmed 03/19/22] brimonidine 0.2 % eye drops 1 drp ophthalmic (eye) BID 03/19/22 [History Confirmed 03/19/22] metoprolol succinate 100 mg tablet,extended release 24 hr 100 mg PO DAILY #30 tabs 03/19/22 [Rx Confirmed 03/19/22] prednisolone acetate 1 % eye drops,suspension 1 drp ophthalmic (eye) 4X/DAY 03/19/22 [History Confirmed 03/19/22] Ejection fraction %: 65 to 70 [facility] Medical History (Updated 03/19/22 @ 13:40 by Leila Burroughs PA, PA) Abnormal mammogram of left breast Cataract Chest pain COVID-19 (04/23/21) Depression Essential hypertension Family history of LA (myocardial infarction) Hypothyroidism Paroxysmal atrial fibrillation with RVR SVT (supraventricular tachycardia) WPW (Drvgq-Aavofwiet-Xtran syndrome) Surgical History History of bilateral cataract extraction ( 02/2022) History of left heart catheterization (LHC) ( 08/28/20) History of radiofrequency ablation procedure for cardiac arrhythmia ( 2002) History of surgery on left wrist Family History Other Diabetes Heart disease Hypertension Myocardial infarction Social History Smoking Status: Never smoker alcohol intake: never substance use type: does not use caffeine: Yes Type: tea Number of servings: 6 ROS Const Const: Negative for fatigue, weakness, headache(s), frequent falls, difficulty sleeping or excessive sweating Eyes Eyes: Negative for loss of peripheral vision, transient loss of vision, blurry vision, double vision or tunnel vision ENT ENT: Negative for headache(s), dizziness, Nosebleed/epistaxis or balance problems Cardio Chest Pain: No Palpitations: No Edema: None Muscle aches with walking: None Resp Respiratory: Positive for SOB with activity (Occasionally); Negative for SOB at rest, SOB orthopnea SOB lying down, Cough or paroxysmal nocturnal dyspnea GI GI: Negative nausea, vomiting, heartburn or black,tarry stools : Negative for hematuria Musc Musc: Negative for muscle aches/ myalgia, muscle weakness, joint pain or balance problems Skin Skin: Negative non-healing lesions, rash or unusual bruising Neuro Neuro: Negative for dizziness, lightheadedness, near syncope, syncope, frequent falls, headache(s), weakness, blurry vision, double vision or lack of coordination Vadim Hematologic/Lymphatic: Negative for easy bleeding or easy bruising Endo Endo: Negative for fatigue, excessive sweating or increased thirst/drinking Psych Psych: Negative for anxiety or depression Allergy Allergy/Immunology: Negative for hives and Negative for rash Cardiology Exam Const Appearance: cooperative, healthy appearing, comfortable, no acute distress, well developed and well groomed Nutritional Appearance: well nourished and overweight Orientation: alert, awake and oriented x3 Head Head: normal to inspection Ears: hearing grossly normal bilaterally Nose: external nose normal Face and Sinus: face symmetric Eyes Eyelids: eyelids normal Conjunctivae: conjunctivae normal Pupils: PERRL EOM: EOM intact bilaterally Neck Neck: normal visual inspection, full ROM and no JVD Carotids: normal carotid upstroke Chest Chest inspection: normal inspection of the chest, symmetric chest movement and normal respiratory effort; Negative cough Auscultation: Bilateral: Clear to Auscultation Cardio Rate: regular rate Rhythm: regular rhythm Heart sounds: S1 normal and S2 normal; Negative rub, gallop or murmur GI GI: normal to inspection, soft and bowel sounds present Neuro General: patient alert, patient awake, patient oriented x3, gait normal and moves all extremities Skin Skin: no rashes or lesions noted Extremities Pulses: Normal: Right Posterior Tibial Pulse, Left Posterior Tibial Pulse, Right Radial Pulse and Left Radial Pulse Lower Extremity Edema: None: Bilateral Psych Psychological: normal affect Supplemental Info Supplemental Information She has undergone remote transthoracic echocardiogram on 04-28-2002 at which time her left ventricle was thought to be normal with an LVEF of 63% with notation of an apical false tendon and trivial MR/TR/CA and an estimated RV systolic pressure of 31 mmHg. Echocardiogram: 06-25-2020 Interpretation Summary Normal LV size. Left ventricular systolic function is normal. The estimated ejection fraction is 65 %. Stage 1 diastolic dysfunction. She had a previous stress echocardiogram performed on 08-30-2002 at which time it was considered negative for echocardiographic evidence of stress-induced myocardial ischemia. She had an occasional PAC during exercise and recovery. Stress Test Report Date: 06/21/2020 Procedure: Exercise tolerance test/imaging study Indications: Chest pain Consent: Per the patient Procedure: The patient exercised on a Collins protocol for 6 minutes achieving a peak heart rate of 139 bpm (92% predicted maximal heart rate) with a peak blood pressure 190/70 mmHg and a peak MET capacity of 7 METs. The baseline ECG demonstrated [sinus rhythm]. The peak exercise ECG demonstrated [about [address] depressions in the inferior and lateral leads, but a 6 beat run of nonsustained V. tach]. EKG during recovery revealed return of ST segments to baseline [There were no cardiac dysrhythmias pretest, during exercise, or recovery]. The functional capacity was considered normal for age. Patient had chest pain with exertion. The examination was discontinued secondary to achieving target heart rate. Impression: 1. Technically adequate (percent predicted maximal heart rate greater than 85%) exercise tolerance test 2. Stress test is positive for exercise-induced EKG changes of ischemia 3. The test test is positive for exercise-induced chest pain 4. Functional capacity is normal for age 5. Nuclear images pending Myocardial perfusion imaging study: Technique: The patient was injected with [] mCi of technetium 99m Cardiolite and subsequently rest SPECT Cardiolite nuclear imaging was obtained in the horizontal long, vertical long, and short axis views. The patient exercised on a Collins protocol. Please see above for details. The patient was injected with [] mCi of technetium 99m Cardiolite and subsequently stress SPECT Cardiolite nuclear imaging was obtained in the horizontal long, vertical long, and short axis views. A gated Cardiolite study at peak stress was obtained. Interpretation: Rest and stress SPECT Cardiolite nuclear imaging status post realignment, normalization, and attenuation correction, demonstrates normal myocardial radiotracer uptake on the stress images. There is no evidence of significant ischemia or infarction. The gated Cardiolite study demonstrates no significant regional wall motion abnormalities. The reported LVEF is greater than 70%. Impression: 1. There is no evidence of significant ischemia or infarction. Please see the EKG portion above as well. 2. The gated Cardiolite study reports an LVEF of greater than 70%. Heart catheterization from 08/28/2020: CONCLUSIONS Elevated Left Ventricular End Diastolic Pressure Normal LV size, wall motion,and systolic function LVEF: by LV gram 65 % Pala Multivessel CAD (non angiographically significant appearing) RECOMMENDATIONS Risk factor modification Medical therapy CORONARY ANGIOGRAPHY DOMINANCE: Right Dominant LEFT HEART ASSESSMENT Left Ventricular Ejection Fraction: by LV Gram 65 % Normal LV wall motion Elevated Left Ventricular End Diastolic Pressure LVEDP: 22 mmHg LEFT MAIN: Angiographically normal LEFT ANTERIOR DESCENDING ARTERY: PROX LAD: Mild luminal irregularities DIAGONAL 1: high diagoal branch: small vessel: ostial: smooth: 25 % Stenosis CIRCUMFLEX ARTERY: MID CIRC: Mild luminal irregularities RIGHT CORONARY ARTERY: Angiographically normal AORTIC ROOT: Angiographically normal Holter monitor: 08-23-2020 Sinus rhythm Frequent PACs, atrial couplets, atrial bigeminy, atrial trigeminy, atrial runs with the longest run being 18 beats of probable ectopic atrial rhythm and the fastest run being 4 beats at approximately 176 bpm Occasional PVCs, rare ventricular couplets, ventricular bigeminy/trigeminy, no wide-complex runs Symptoms reported occasionally correlated with underlying ectopy/tachycardia. Labs: No Data to Display Diagnostics: Electrocardiogram Cardiac Catheterization Chest X-Ray Pulmonary: No Data to Display Assessment and Plan Assessment and Plan (1) Paroxysmal atrial fibrillation with RVR: Status: Acute Plan: Atrial fibrillation is a newer finding for patient. For now she will continue with her metoprolol and her Eliquis. Did explain to her that if she has any recurrence we could consider an antiarrhythmic. Also explained that we could consider reestablishing with the EP for a possible ablation. For now she is agreeable with watchful waiting and monitoring. She will let us know if she has any recurrence that concerning for her. (2) WPW (Odlvo-Morqfbjog-Pjzce syndrome): Status: Acute Plan: At the present time she appears to be stable with no ongoing concerning symptoms/adverse events. She will continue her current medical therapy. (3) SVT (supraventricular tachycardia): Status: Acute Plan: Patient has not had any symptomatic recurrence. She will continue with her current dose of metoprolol. (4) History of radiofrequency ablation procedure for cardiac arrhythmia: Status: Resolved Plan: She has undergone remote EPS/RFA. Again she appears to be stable at this time. She will continue her current medical therapy. (5) Essential hypertension: Status: Chronic Plan: Her blood pressure appears to be reasonably well controlled. She will continue medical management. Medications: Changed From apixaban (Eliquis) 10 mg twice a day for the first week. Then 5 mg twice a day. 5 mg PO BID 74 tabs 0RF To apixaban (Eliquis) 5 mg PO BID 60 tabs 11RF From metoprolol succinate ER 100 mg PO DAILY To metoprolol succinate ER 100 mg PO DAILY 30 tabs 11RF Plan Details Additional Comments: Thank you for allowing us to participate in the patients plan of care, if you have any questions please do not hesitate to call. This note was generated using a voice recognition system and there may be incorrect words, spelling or punctuation that were not noted when reviewing the office note prior to saving. Follow Up: 3 Months (MMM) Coding Level of Care Code Off vis,est,level 4 Diagnoses Paroxysmal atrial fibrillation with RVR I48.0 WPW (Qbgyl-Etapjksdw-Lmzlf syndrome) I45.6 SVT (supraventricular tachycardia) I47.1 History of radiofrequency ablation procedure for cardiac arrhythmia Z98.890 Essential hypertension I10 Coding Level of Care Code Off vis,est,level 4 Diagnoses Paroxysmal atrial fibrillation with RVR I48.0 WPW (Xnjgs-Jvwydgkya-Pydsh syndrome) I45.6 SVT (supraventricular tachycardia) I47.1 History of radiofrequency ablation procedure for cardiac arrhythmia Z98.890 Essential hypertension I10 03/19/22 1349 <Electronically signed by Leila Cueto> Date ___ Leila [facility] Signature: Date ___ (if applicable) CC: Dr. Ana Lilia Sagastume, DO Ana Lilia Sagastume DO Work Phone: Start: 03-11-2022 End: 03-12-2022 Procedure Note: See Note; NOTES: [facility] Medical Records Department [address] [place] [address] Emergency Department Summary 03/11/22 MR#: [id number] Acct: [id number] Name: YADY COOMBS Rep #: [id number] : 1950 71 From: Alonzo Rock DO PCP: Dr. Ana Lilia Sagastume DO Status:DEP ER Location: ED HPI History of Present Illness Chief Complaint: Palpitations Informant: patient Onset/Context/Timing Onset: Today Activity at onset: sudden Timing: Intermittent Quality: Positive for - (Racing heartbeat) Worsened By: Nothing Relieved By: Nothing Associated Symptoms: Positive for Dyspnea, Cough and Palpitations; Negative for Nausea, Vomiting, Diaphoresis, Fever, Lightheadedness or Acid Reflux Narrative Narrative: Presents with palpitations that began today. Patient states it began rather suddenly. Patient states that it feels like her heart was beating fast. Patient admits to some mild shortness of breath and cough with this. Patient denies any nausea or vomiting. Patient denies any diaphoresis. Patient denies any recent fevers or chills. Patient denies any chest pain. Patient states nothing makes it better and nothing makes it worse. Patient states that she had a similar episode in the past and when she got to the emergency department she was back into a sinus rhythm and had no symptoms at that time. Patient states that at that time her potassium was low. [facility] Medical History Abnormal mammogram of left breast Cataract Chest pain COVID-19 (04/23/21) Depression Essential hypertension Family history of LA (myocardial infarction) Hypothyroidism SVT (supraventricular tachycardia) WPW (Ykadf-Htckbfoyp-Grtky syndrome) Home Medications cholecalciferol (vitamin D3) 50 mcg (2,000 unit) capsule 4,000 unit PO DAILY 07/05/16 [History Last Taken Unknown] chlorthalidone 25 mg tablet 25 mg PO DAILY 12/06/19 [History Last Taken Unknown] duloxetine 60 mg capsule,delayed release 60 mg PO DAILY 12/06/19 [History Last Taken Unknown] brimonidine 0.15 % eye drops 1 drp ophthalmic (eye) BID 11/20/20 [History Last Taken Unknown] alendronate 70 mg tablet 70 mg PO QWEEK 05/28/21 [History Last Taken Unknown] biotin 1 mg capsule 1 mg PO DAILY 05/28/21 [History Last Taken Unknown] calcium carbonate 600 mg calcium (1,500 mg) tablet 1,200 mg PO DAILY 05/28/21 [History Last Taken Unknown] metoprolol succinate 50 mg tablet,extended release 24 hr 50 mg PO DAILY #90 tabs 07/12/21 [Rx Last Taken Unknown] levothyroxine 112 mcg tablet (Synthroid) 112 mcg PO DAILY 12/13/21 [History Last Taken Unknown] magnesium aspartate-potassium aspartate 250 mg-250 mg capsule 1 cap PO DAILY 12/13/21 [History Last Taken Unknown] apixaban 5 mg tablet (Eliquis) 5 mg PO BID #74 tabs 03/11/22 [Rx Last Taken Unknown] Allergy/AdvReac Type Severity Reaction Status Date / Time No Known Allergies Allergy Verified 03/11/22 21:03 anesthesia AdvReac Nausea Uncoded 03/11/22 21:03 Vomiting Family History Other Diabetes Heart disease Hypertension Myocardial infarction Surgical History History of left heart catheterization (LHC) ( 08/28/20) History of radiofrequency ablation procedure for cardiac arrhythmia ( 2002) History of surgery on left wrist Social History Smoking Status: Never smoker alcohol intake: never substance use type: does not use caffeine: Yes Type: tea Number of servings: 6 ROS ROS ED Constitutional Constitutional ED: Denies chills or fever(s) Eyes Eyes: Denies blurry vision or change in vision ENT ENT ED: Denies rhinorrhea or sore throat Cardiovascular Cardiovascular: Reports palpitations; Denies chest pain Respiratory/Chest Respiratory/Chest: Reports dyspnea; Denies cough Gastrointestinal Gastrointestinal: Denies nausea or vomiting Genitourinary Genitourinary ED: Denies dysuria or hematuria Musculoskeletal Musculoskeletal: Denies back pain or neck pain Integumentary Denies abscess or rash Neurologic Neurologic: Denies headache(s) or weakness Allergic/Immunologic Allergic/Immunologic ED: Denies mouth swelling or urticaria EXAM Physical Exam Const Vital Signs: 03/11/22 21:00 03/11/22 21:19 03/11/22 21:21 Temperature 97 F L Temperature Source Temporal Pulse Rate 153 H 88 Respiratory Rate 18 18 Respiratory Effort Normal Non-Labored Respiratory Pattern Normal Blood Pressure 164/92 H 115/69 Blood Pressure Mean 116 84 Pulse Ox 100 94 Oxygen Delivery Method Room Air Room Air 03/11/22 23:39 Temperature Temperature Source Pulse Rate 74 Respiratory Rate 15 Respiratory Effort Respiratory Pattern Blood Pressure 105/62 Blood Pressure Mean Pulse Ox 99 Oxygen Delivery Method Positive well nourished and well developed General Appearance ED: well developed HEENT Reports moist mucous membranes Neck supple and no JVD Resp normal respiratory effort and clear to auscultation bilaterally Cardio regular rate, regular rhythm and no murmurs GI normal to inspection, nondistended, normoactive bowel sounds and non-tender Palpation: soft Extremity normal to inspection General Extremety ED: Negative for edema or tenderness General Extremity: Negative for edema Neuro oriented x3, CN's II-XII intact bilaterally and no sensory deficits noted Sensorium / Orientation: alert Motor Exam: strength 5/5 throughout Psych mental status grossly normal Skin no rashes or lesions noted MDM MDM MDM Narrative Medical decision making narrative: EKG was obtained initially. On my interpretation, it showed atrial fibrillation with a rate of 156. QRS interval and QTc intervals were within normal limits. Stirum was normal. There are nonspecific ST-T wave changes noted. When I walked into the room to examine the patient she was in a normal sinus rhythm on the monitor. Repeat EKG was obtained. On my interpretation it shows a normal sinus rhythm with a rate of 92. CA interval, QRS normal, QTC intervals are all within normal limits. Stirum is normal. There are no acute ST or T wave changes. CBC was within normal limits. Comprehensive metabolic profile shows a potassium of 3.2 and a glucose of 139. The remainder was within normal limits. High-sensitivity troponin was normal at 24. PA and lateral chest x-ray was obtained. There are 2 views. On my interpretation, lung valero are clear. There is normal cardiac silhouette. Bony thorax is normal. There is no acute process noted. Radiologist also interpreted the x-ray and agrees. Patient is feeling better on reevaluation. Case was discussed with Dr. Valle. He recommended increasing the patient's metoprolol to 100 mg daily. He also recommended starting the patient on Eliquis for the paroxysmal atrial fibrillation. Patient was given a dose of potassium here. Patient was advised of the recommendations. She is agreeable with this. Patient was instructed to follow-up with her primary care physician as well as Dr. Valle in 5 to 7 days. Patient understood and was agreeable with the plan. All questions were answered. Lab Data Attestation: I reviewed the patient's lab results. Labs: Laboratory Results - last 24 hr 03/11/22 03/11/22 21:30 21:30 WBC 9.5 RBC 5.01 Hgb 14.2 Hct 42.2 MCV 84.2 MCH 28.3 MCHC 33.6 RDW Std Deviation 40.3 RDW Coeff of Luiza 13.2 Plt Count 311 MPV 11.0 Immature Gran % (Auto) 0.300 Neut % (Auto) 61.2 Lymph % (Auto) 23.8 Kane % (Auto) 11.0 H Eos % (Auto) 3.0 Baso % (Auto) 0.7 Absolute Neuts (auto) 5.8 Absolute Lymphs (auto) 2.26 Nucleated RBC % 0 Sodium 137 Potassium 3.2 L Chloride 103 Carbon Dioxide 25.0 Anion Gap 9 BUN 22 H Creatinine 0.91 Estim Creat Clear Calc 44.85 Est GFR (MDRD) Af Amer 78 Est GFR (MDRD) Non-Af 65 BUN/Creatinine Ratio 24.2 H Glucose 139 H Calcium 9.0 Total Bilirubin 0.40 AST 21 ALT 27 Alkaline Phosphatase 76 Troponin I High Sens 24 Total Protein 6.7 Albumin 3.4 Globulin 3.3 Albumin/Globulin Ratio 1.0 Radiography Chest X-Ray - ED: 2 View, Read by ED Physician, Read by Radiologist, Normal and No Acute Disease Diagnostic Testing: Clinical Impression(s) from Imaging Studies Chest X-Ray 03/11/22 22:00 IMPRESSION: No acute abnormal cardiopulmonary finding. Electronically Signed: Jorge Alberto Lemus MD at 22:17 EDT , EKG Initial EKG: Attestation: I personally reviewed and interpreted this EKG as follows: Interpretation: Atrial Fibrillation (156) and Non-Specific ST Changes Prior EKG tracings: available for review Prior: Changed (Paired to EKG dated 08/02/2020, the atrial fibrillation and nonspecific ST-T wave changes are new.) Follow-up EKG: Attestation: I personally reviewed and interpreted this EKG as follows: Interpretation: Sinus Rhythm (92) and No Acute Injury Pattern Prior EKG tracings: available for review Prior: Unchanged (This EKG is unchanged compared to the EKG dated 08/02/2020) Discharge Plan Triage Chief Complaint: Palpitations ED Provider: Alonzo Rock Dx/Rx/DC Orders Clinical Impression: Paroxysmal atrial fibrillation, Hypokalemia Instructions: ED AFIB, ED Hypokalemia Prescriptions: New Eliquis 5 mg tablet 5 mg PO BID Qty: 74 0RF Rx Instructions: 10 mg twice a day for the first week. Then 5 mg twice a day. No Action levothyroxine [Synthroid] 112 mcg tablet 112 mcg PO DAILY alendronate 70 mg tablet 70 mg PO QWEEK biotin 1 mg capsule 1 mg PO DAILY magnesium, potassium aspartate 250-250 mg capsule 1 cap PO DAILY cholecalciferol (vitamin D3) 2,000 UNIT capsule 4,000 unit PO DAILY chlorthalidone 25 MG tablet 25 mg PO DAILY duloxetine 60 MG capsule 60 mg PO DAILY brimonidine 0.15 % drops 1 drp OPHTHALMIC BID calcium carbonate 600 mg calcium (1,500 mg) tablet 1,200 mg PO DAILY metoprolol succinate 50 mg tablet extended release 24 hr 50 mg PO DAILY Qty: 90 3RF Primary Care Provider: Ana Lilia Sagastume Referrals: Ana Lilia Sagastume DO [Primary Care Provider] - 3-5 Days Jorge Alberto Valle MD [Med Staff - Active Staff] - 5-7 Days Disposition Disposition: Home, Self Care Discharge Date/Time: 03/11/22 23:39 What to do if you have Problems For any increased pain, shortness of breath, bleeding, nausea or vomiting, chest pain, or any unexpected problems, contact your Primary Care Provider. Call [facility] ([phone]) or report to the closest Emergency Room. Call 911 if necessary. 03/12/22 0054 <Electronically signed by Alonzo Rock DO> Cosigner Signature (if applicable): CC: Dr. Ana Lilia Sagastume DO Signed Ana Lilia Sagastume DO Work Phone: Start: 03-11-2022 Plain chest X-ray Dr. Ana Lilia Sagastume Work Phone: Start: 03-11-2022 End: 03-11-2022 Procedure Note: See Note; NOTES: [facility] Imaging Services [address] [place] [address] Chest PA and Lateral MR#: [id number] Acct: [id number] Name: YADY COOMBS Rep #: [id number] : 1950 F 71 From: Jorge Alberto Lemus MD PCP: Dr. Ana Lilia Sagastume DO Status: REG ER Study: Chest PA and Lateral Date of Exam: 03/11/22 Exam# [id number] Ordering Dr: Alonzo Rock DO STUDY: X-RAY CHEST REASON FOR EXAM: Female, 71 years old. Palpitations TECHNIQUE: PA and lateral views of the chest. COMPARISON: 05/02/2021 ___ FINDINGS: The lungs are clear and expanded. There is no demonstrated pleural abnormality. Normal size heart. Normal mediastinum and sam. Normal visualized pulmonary arteries. Normal visualized aortic arch and descending thoracic aorta. There is no demonstrated abnormality of the visualized soft tissue structures of the upper abdomen. ___ RAD/Chest PA and Lateral IMPRESSION: No acute abnormal cardiopulmonary finding. Electronically Signed: Jorge Alberto Lemus MD at 22:17 EDT , CC: Dr. Alonzo Rock DO; Dr. Ana Lilia Sagastume DO Financial Counselor: Signed Ana Lilia Sagastume DO Work Phone: Start: 03-11-2022 End: 03-13-2022 Procedure Note: See Note; NOTES: [facility] Cardiovascular Services [address] [place] [address] 12 Lead EKG 03/11/22 2111 MR#: [id number] Acct: [id number] Name: YADY COOMBS Rep #: [id number] : 1950 71 From: JorgeA lberto Valle MD Attending Dr: Status: DEP ER Ordering Dr: Alonzo Rock DO Date: 03/11/22 Location: ED Sex: F C Admitted: Test Reason : PALPS Blood Pressure : / mmHG Vent. Rate : 156 BPM Atrial Rate : 000 BPM P-R Int : 000 ms QRS Dur : 166 ms QT Int : 292 ms P-R-T Axes : 000 059 027 degrees QTc Int : 470 ms Atrial fibrillation with rapid ventricular response Nonspecific ST and T wave abnormality Abnormal ECG Confirmed by JORGE ALBERTO VALLE MD ([id number]), editorial director SHELLIE FITZPATRICK ([id number]) on 03/13/2022 12:36:14 PM Referred By: PL Confirmed By:JORGE ALBERTO VALLE MD 03/13/22 1236 Date ___ Jorge Alberto Valle MD CC: Dr. Alonzo Rock DO; Dr. Ana Lilia Sagastume DO Signed Ana Lilia Sagastume DO Work Phone: Start: 12-13-2021 End: 12-13-2021 Procedure Note: See Note; NOTES: [facility] [address] [place] [address]. [address] [place] [address] OFFICE VISIT Date of Service: 12/13/21 MR#: [id number] Acct: [id number] Name: YADY COOMBS Rep #: [id number] : 1950 Provider: Dr. 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 The patient denies symptoms considered classic for angina pectoris, CHF / pulmonary edema (with respect to orthopnea / PND), ongoing palpitations, or near syncope / syncope. The patient denies ongoing peripheral pitting edema. She has undergone previous cardiovascular studies in the past. Those studies are noted below. Intake Vital Signs 11/20/20 12:59 11/20/20 13:01 05/28/21 13:31 12/13/21 11:31 12/13/21 11:31 Height 5 ft 1 in 5 ft 2 in 5 ft 2 in 5 ft 2 in Weight: 156 lb 8 oz 156 lb BMI 27.1 28.6 27.1 28.5 BP 131/70 H 115/60 Blood Pressure Location Rt brachial Lt brachial Position Sitting Sitting Respiration 18 14 Pulse 96 56 L Pulse Source Monitor Monitor Temp 97.5 F L Pulse Oximetry (%) 97 Oxygen Delivery Method room air Intake Visit Reasons: 1 y fu Pourer Metal Required: No Accompanied by: None Is patient in pain?: No Allergies No Known Allergies Allergy (Verified 12/13/21 11:34) anesthesia Adverse Reaction (Uncoded 12/13/21 11:34) Nausea Vomiting Medications cholecalciferol (vitamin D3) 50 mcg (2,000 unit) capsule 4,000 unit PO DAILY 07/05/16 [History Confirmed 12/13/21] chlorthalidone 25 mg tablet 25 mg PO DAILY 12/06/19 [History Confirmed 12/13/21] duloxetine 60 mg capsule,delayed release 60 mg PO DAILY 12/06/19 [History Confirmed 12/13/21] brimonidine 0.15 % eye drops 1 drp ophthalmic (eye) BID 11/20/20 [History Confirmed 12/13/21] alendronate 70 mg tablet 70 mg PO QWEEK 05/28/21 [History Confirmed 12/13/21] biotin 1 mg capsule 1 mg PO DAILY 05/28/21 [History Confirmed 12/13/21] calcium carbonate 600 mg calcium (1,500 mg) tablet 1,200 mg PO DAILY 05/28/21 [History Confirmed 12/13/21] metoprolol succinate 50 mg tablet,extended release 24 hr 50 mg PO DAILY #90 tabs 07/12/21 [Rx Confirmed 12/13/21] levothyroxine 112 mcg tablet (Synthroid) 112 mcg PO DAILY 12/13/21 [History Confirmed 12/13/21] magnesium aspartate-potassium aspartate 250 mg-250 mg capsule 1 cap PO DAILY 12/13/21 [History Confirmed 12/13/21] Ejection fraction %: 65 to 70 [facility] Medical History (Updated 12/13/21 @ 11:44 by Jeane Randle) Abnormal mammogram of left breast Chest pain COVID-19 (04/23/21) Depression Essential hypertension Family history of LA (myocardial infarction) Hypothyroidism SVT (supraventricular tachycardia) WPW (Onaqr-Gleuqdckp-Ktznz syndrome) Surgical History History of left heart catheterization (LHC) ( 08/28/20) History of radiofrequency ablation procedure for cardiac arrhythmia ( 2002) History of surgery on left wrist Family History Other Diabetes Heart disease Hypertension Myocardial infarction Social History Smoking Status: Never smoker alcohol intake: never substance use type: does not use caffeine: Yes Type: tea Number of servings: 6 ROS Const Const: Positive for fatigue (Continued fatigue since cov in March.); Negative for weakness, headache(s), frequent falls, difficulty sleeping or excessive sweating Eyes Eyes: Negative for loss of peripheral vision, transient loss of vision, blurry vision, double vision or tunnel vision ENT ENT: Negative for headache(s), dizziness, Nosebleed/epistaxis or balance problems Cardio Chest Pain: No Palpitations: No Edema: None Muscle aches with walking: None Resp Respiratory: Positive for SOB with activity (Gets SOB more quickly since Cov in March); Negative for SOB at rest, SOB orthopnea SOB lying down, Cough or paroxysmal nocturnal dyspnea GI GI: Negative nausea, vomiting, heartburn or black,tarry stools : Negative for hematuria Musc Musc: Negative for muscle aches/ myalgia, muscle weakness, joint pain or balance problems Skin Skin: Negative non-healing lesions, rash or unusual bruising Neuro Neuro: Positive for lightheadedness (Occasionally); Negative for dizziness, near syncope, syncope, frequent falls, headache(s), weakness, blurry vision, double vision or lack of coordination Vadim Hematologic/Lymphatic: Negative for easy bleeding or easy bruising Endo Endo: Positive for fatigue (Continued fatigue since cov in March.); Negative for excessive sweating or increased thirst/drinking Psych Psych: Negative for anxiety or depression Allergy Allergy/Immunology: Negative for hives and Negative for rash Cardiology Exam Const Appearance: cooperative, healthy appearing, comfortable, no acute distress, well developed and well groomed Nutritional Appearance: well nourished and overweight Orientation: alert, awake and oriented x3 Head Head: normal to inspection Ears: hearing grossly normal bilaterally Nose: external nose normal Face and Sinus: face symmetric Eyes Eyelids: eyelids normal Conjunctivae: conjunctivae normal Pupils: PERRL EOM: EOM intact bilaterally Neck Neck: normal visual inspection, full ROM and no JVD Carotids: normal carotid upstroke Chest Chest inspection: normal inspection of the chest, symmetric chest movement and normal respiratory effort; Negative cough Auscultation: Bilateral: Clear to Auscultation Cardio Rate: regular rate Rhythm: regular rhythm Heart sounds: S1 normal and S2 normal; Negative rub, gallop or murmur GI GI: normal to inspection, soft and bowel sounds present Neuro General: patient alert, patient awake, patient oriented x3, gait normal and moves all extremities Skin Skin: no rashes or lesions noted Extremities Pulses: Normal: Right Posterior Tibial Pulse, Left Posterior Tibial Pulse, Right Radial Pulse and Left Radial Pulse Lower Extremity Edema: None: Bilateral Psych Psychological: normal affect Supplemental Info Supplemental Information She has undergone remote transthoracic echocardiogram on 04-28-2002 at which time her left ventricle was thought to be normal with an LVEF of 63% with notation of an apical false tendon and trivial MR/TR/CA and an estimated RV systolic pressure of 31 mmHg. Echocardiogram: 06-25-2020 Interpretation Summary Normal LV size. Left ventricular systolic function is normal. The estimated ejection fraction is 65 %. Stage 1 diastolic dysfunction. She had a previous stress echocardiogram performed on 08-30-2002 at which time it was considered negative for echocardiographic evidence of stress-induced myocardial ischemia. She had an occasional PAC during exercise and recovery. Stress Test Report Date: 06/21/2020 Procedure: Exercise tolerance test/imaging study Indications: Chest pain Consent: Per the patient Procedure: The patient exercised on a Collins protocol for 6 minutes achieving a peak heart rate of 139 bpm (92% predicted maximal heart rate) with a peak blood pressure 190/70 mmHg and a peak MET capacity of 7 METs. The baseline ECG demonstrated [sinus rhythm]. The peak exercise ECG demonstrated [about [address] depressions in the inferior and lateral leads, but a 6 beat run of nonsustained V. tach]. EKG during recovery revealed return of ST segments to baseline [There were no cardiac dysrhythmias pretest, during exercise, or recovery]. The functional capacity was considered normal for age. Patient had chest pain with exertion. The examination was discontinued secondary to achieving target heart rate. Impression: 1. Technically adequate (percent predicted maximal heart rate greater than 85%) exercise tolerance test 2. Stress test is positive for exercise-induced EKG changes of ischemia 3. The test test is positive for exercise-induced chest pain 4. Functional capacity is normal for age 5. Nuclear images pending Myocardial perfusion imaging study: Technique: The patient was injected with [] mCi of technetium 99m Cardiolite and subsequently rest SPECT Cardiolite nuclear imaging was obtained in the horizontal long, vertical long, and short axis views. The patient exercised on a Collins protocol. Please see above for details. The patient was injected with [] mCi of technetium 99m Cardiolite and subsequently stress SPECT Cardiolite nuclear imaging was obtained in the horizontal long, vertical long, and short axis views. A gated Cardiolite study at peak stress was obtained. Interpretation: Rest and stress SPECT Cardiolite nuclear imaging status post realignment, normalization, and attenuation correction, demonstrates normal myocardial radiotracer uptake on the stress images. There is no evidence of significant ischemia or infarction. The gated Cardiolite study demonstrates no significant regional wall motion abnormalities. The reported LVEF is greater than 70%. Impression: 1. There is no evidence of significant ischemia or infarction. Please see the EKG portion above as well. 2. The gated Cardiolite study reports an LVEF of greater than 70%. Heart catheterization from 08/28/2020: CONCLUSIONS Elevated Left Ventricular End Diastolic Pressure Normal LV size, wall motion,and systolic function LVEF: by LV gram 65 % Pala Multivessel CAD (non angiographically significant appearing) RECOMMENDATIONS Risk factor modification Medical therapy CORONARY ANGIOGRAPHY DOMINANCE: Right Dominant LEFT HEART ASSESSMENT Left Ventricular Ejection Fraction: by LV Gram 65 % Normal LV wall motion Elevated Left Ventricular End Diastolic Pressure LVEDP: 22 mmHg LEFT MAIN: Angiographically normal LEFT ANTERIOR DESCENDING ARTERY: PROX LAD: Mild luminal irregularities DIAGONAL 1: high diagoal branch: small vessel: ostial: smooth: 25 % Stenosis CIRCUMFLEX ARTERY: MID CIRC: Mild luminal irregularities RIGHT CORONARY ARTERY: Angiographically normal AORTIC ROOT: Angiographically normal Holter monitor: 08-23-2020 Sinus rhythm Frequent PACs, atrial couplets, atrial bigeminy, atrial trigeminy, atrial runs with the longest run being 18 beats of probable ectopic atrial rhythm and the fastest run being 4 beats at approximately 176 bpm Occasional PVCs, rare ventricular couplets, ventricular bigeminy/trigeminy, no wide-complex runs Symptoms reported occasionally correlated with underlying ectopy/tachycardia. Labs: LDL Cholesterol 123 mg/dL (0-130) HDL Cholesterol 68 mg/dL (40-) Triglycerides 67 mg/dL (-199) VLDL Cholesterol 13 mg/dL (5-40) Diagnostics: Electrocardiogram Echocardiogram Stress Test NM Stress Test Cardiac Catheterization Chest X-Ray Pulmonary: No Data to Display Assessment and Plan Assessment and Plan (1) WPW (Pjcbj-Ktfidvmfo-Nrcnj syndrome): Status: Acute Plan: At the present time she appears to be stable with no ongoing concerning symptoms/adverse events. She will continue her current medical therapy. (2) SVT (supraventricular tachycardia): Status: Acute Plan: Again she appears to be stable at this time with no acute symptoms or adverse events. Her previous noninvasive studies were reviewed. She will continue her current medical therapy. (3) History of radiofrequency ablation procedure for cardiac arrhythmia: Status: Resolved Plan: She has undergone remote EPS/RFA. Again she appears to be stable at this time. She will continue her current medical therapy. (4) Essential hypertension: Status: Chronic Plan: Her blood pressure appears to be reasonably well controlled. She will continue medical management. Plan Details Additional Comments: Thank you for allowing us to participate in the patients plan of care, if you have any questions please do not hesitate to call. This note was generated using a voice recognition system and there may be incorrect words, spelling or punctuation that were not noted when reviewing the office note prior to saving. Follow Up: 1 Year (with PFM) COVID (Procedure Consent) Procedure Criteria Procedure Criteria: Yes Elective The surgeon/proceduralist and patient have discussed in detail the risk of exposure to and/or potential harm posed by the COVID-19 virus with having a surgery/procedure at this time versus the risk of??? delaying the surgery/procedure. It is not possible to know either the risk of delaying the surgery or procedure or chance of getting an infection with perfect accuracy, but a joint decision was made between the patient and the surgeon/proceduralist ???to proceed at this time with the scheduled surgery/procedure as indicated on the consent form. Coding Level of Care Code Off vis,est,level 3 Diagnoses WPW (Pbyqt-Ivwfkxiqr-Dpvee syndrome) I45.6 SVT (supraventricular tachycardia) I47.1 History of radiofrequency ablation procedure for cardiac arrhythmia Z98.890 Essential hypertension I10 Coding Level of Care Code Off vis,est,level 3 Diagnoses WPW (Yvewl-Jtjrbwhqs-Hzsfy syndrome) I45.6 SVT (supraventricular tachycardia) I47.1 History of radiofrequency ablation procedure for cardiac arrhythmia Z98.890 Essential hypertension I10 12/13/21 1214 <Electronically signed by Jorge Alberto Valle MD> Date ___ Jorge Alberto Valle MD Cosigner Signature: Date ___ (if applicable) CC: Dr. Ana Lilia Sagastume, DO Ana Lilia Sagastume DO Work Phone: Start: 05-30-2021 End: 05-30-2021 Comments: See Note; NOTES: [facility] Medical Records Department [address] [place] [id number] Operative Report 05/30/21 1255 MR#: [id number] Acct: [id number] Name: YADY COOMBS Rep #: [id number] : 1950 70 From: Mikel Adams MD PCP: Dr. Ana Lilia Sagastume, Status:[facility] Location: [facility] Associated Problem List Diagnoses (1) Abnormal mammogram of left breast: Report of Operation Date of Procedure: 05/30/21 Pre-Operative Diagnosis: Density upper outer quadrant left breast Post-Operative Diagnosis: Same Surgery/Procedure Performed:: Stereotactic needle core biopsy upper outer quadrant left breast Description of Surgical Findings:: Timeout informed consent was obtained. 70-year-old female was taken to the stereotactic room placed prone the table the left breast was placed in a lateral medial view the density in question was rapidly identified stereotactic images were obtained digital information was obtained on a single target site. The breast was prepped with Betadine. 1% lidocaine was used as a local anesthetic. A total of 10 cc was used. Local was instilled. A small stab incision was created. An 8 gauge resolved needle was advanced to prefire depth. Prefire films were obtained demonstrating adequate localization. The device was fired. 9 cores were obtained. A marking clip was left at 12 o'clock position. The specimens were immediately transferred to formalin for analysis. Specimen cores. Blood loss minimal. Drains none. The patient was released from the device pressure was held for hemostasis Steri-Strip Telfa OpSite dressing applied ice pack applied she was given activity wound care instructions No apparent complication Mikel Adams M.D., F.A.C.S. Surgeon: Mikel Adams Type of Anesthesia: Local 05/30/21 1258 <Electronically signed by Mikel Adams MD> Cosigner Signature (if applicable): CC: Dr. Ana Lilia Sagastume DO; Dr. Mikel Adams MD Signed Ana Lilia Sagastume DO Work Phone: Start: 05-30-[address] Ana Lilia Sagastume Work Phone: Start: 05-30-2021 End: 05-30-2021 Comments: See Note; NOTES: [facility] Medical Records Department [address] [place] [id number] History Physical Exam 05/30/21 1149 MR#: [id number] Acct: [id number] Name: YADY COOMBS Rep #: [id number] : 1950 70 From: Mikel Adams MD PCP: Dr. Ana Lilia Sagastume DO Status:PRE CLI Location: [facility] History and Physical Date of Admission: 05/30/21 Intake Visit Reasons: BIRADS 4 LEFT BREAST Chief Complaint: BIRADS 4 LEFT BREAST Pourer Metal Required: No Is patient in pain?: No Allergies No Known Allergies Allergy (Verified 05/28/21 13:32) anesthesia Adverse Reaction (Uncoded 08/02/20 14:21) Nausea Vomiting Medications cholecalciferol (vitamin D3) 4,000 unit PO DAILY 07/05/16 [History Confirmed 05/28/21] chlorthalidone 25 mg PO DAILY 12/06/19 [History Confirmed 05/28/21] duloxetine 60 mg PO DAILY 12/06/19 [History Confirmed 05/28/21] levothyroxine 112 mcg tablet 112 mcg PO DAILY 08/02/20 [History Confirmed 05/28/21] metoprolol succinate 50 mg tablet,extended release 24 hr 50 mg PO DAILY #90 tablet 08/24/20 [Rx Confirmed 05/28/21] brimonidine 0.15 % eye drops 1 drp OPHTHALMIC BID ml 11/20/20 [History Confirmed 05/28/21] alendronate 70 mg tablet 70 mg PO QWEEK 05/28/21 [History Confirmed 05/28/21] biotin 1 mg capsule 1 mg PO DAILY 05/28/21 [History Confirmed 05/28/21] calcium carbonate 600 mg calcium (1,500 mg) tablet 1,200 mg PO DAILY tab 05/28/21 [History Confirmed 05/28/21] magnesium aspartate-potassium aspartate 250 mg-250 mg capsule cap PO DAILY cap 05/28/21 [History Confirmed 05/28/21] [facility] Medical History (Updated 05/28/21 @ 13:[address] Mikel Adams MD) Abnormal mammogram of left breast Chest pain Depression Essential hypertension Family history of LA (myocardial infarction) Hypothyroidism SVT (supraventricular tachycardia) WPW (Weifa-Xfbwfoxoz-Hnkai syndrome) Surgical History History of left heart catheterization (LHC) ( 08/28/20) History of radiofrequency ablation procedure for cardiac arrhythmia ( 2002) History of surgery on left wrist Family History Other Diabetes Heart disease Hypertension Myocardial infarction Social History Smoking Status: Never smoker alcohol intake: never substance use type: does not use caffeine: Yes Type: tea Number of servings: 6 HPI HPI HPI: YADY COOMBS, is a 70 F who presents to the office today for surgical consultation regarding her abnormal mammography. She is referred by Dr. Ana Lilia Sagastume and a written copy of my surgical consult recommendations will return to her. It is of note that on April 16, 2021 the patient had a positive COVID-19 test. She did require monoclonal antibody. She has been left with a chronic cough. She is hoping to see Dr. Mikel Rausch in the near future pulmonology On May 10, 2021 the patient had bilateral screening mammography. There is a stable 8.9 mm well- defined nodule in the deep upper outer aspect of the left breast. This was compared to previous examination of December 15, 2019. BI-RADS Category 0. Ultrasound was recommended. On May 15, 2020 a diagnostic left mammogram and left breast ultrasound was obtained. On mammogram is stable 8.1 x 5.1 mm well-defined nodule in the deep upper outer aspect of the left breast was identified. The ultrasound did not demonstrate any abnormality. The study was interpreted as BI-RADS Category 4 with biopsy recommended. There was comment made that the item appeared to be consistent with an intramammary lymph node. 70-year-old female. G 3. Menarche at age 14. First child was born when she was 20. She did breast-feed. No previous breast biopsies. Family history negative for breast cancer. She is not been on any estrogen medication. ROS General General: No weight change, appetite, fatigue, colon cancer, breast cancer or weakness HEENT HEENT: No difficulty swallowing, eye injury, eye surgery, swollen glands or hoarseness Endo Endocrine: Yes thyroid disease; No diabetes mellitus, thyroid cancer, Hair loss, heat intolerance or cold intolerance Skin Skin: No rash or changing moles Breast Breast: Yes abnormal mammogram; No left breast lump, right breast lump, nipple discharge, breast pain, abnormal US or breast enlargement Musc Musculoskeletal: Yes arthritis; No back problems, rheumatoid arthritis, gout or joint pain Cardio Cardiovascular: Yes high blood pressure; No murmur, pacemaker, heart disease, atrial fibrillation, heart attack, heart stent, palpitations, shortness of breat with exertion or chest pain Additional Details: Ablation for WPW Psych Psychiatric: Yes depression; No anxiety or hearing voices Resp Respiratory: Yes shortness of breath, No sleep apnea, Yes cough, No COPD, No asthma, No emphysema and No wheezing Gastro Gastrointestinal: No abdominal pain, No nausea or vomiting, No diarrhea, No constipation, No blood in stool, No acid reflux, No hemorrhoids, No ulcers, No gallbladder problem and No black,tarry stools Vadim Hematologic: No blood thinners, No blood disorders, No bleeding, No anemia and No blood clots Neuro Neurologic: No system reviewed and no additional complaints, except as documented, No as per HPI, No abnormal gait, No abnormal hearing, No abnormal movements, No abnormal speech, No behavioral changes, No burning sensations, No confusion, No convulsions, No disequilibrium, No dizziness, No localized weakness, No frequent falls, No headache(s), No lack of coordination, No loss of vision, No memory loss, Yes numbness, No other visual disturbances, No radicular pain, No restless legs, No sensory deficit, No syncope, Yes tingling, No tremor(s), No weakness and No other Exam Chest Other: Right breast: No focal mass, no nipple discharge, no axillary clavicular adenopathy Left breast: No focal mass. No nipple discharge. No axillary clavicular adenopathy Assessment and Plan Assessment and Plan (1) Abnormal mammogram of left breast: Status: Inactive Plan - Dr. Mikel Adams MD: 70-year-old female with an abnormal left mammogram with an 8 x 1 x 5.1 mm well-defined nodule upper outer aspect of the left breast. I recommended the patient is stereotactic needle core biopsy of this area and I discussed technique, benefit, risk, alternatives. She has had an opportunity to ask and have questions answered. We will schedule and proceed at her discretion. I very much appreciate the kind opportunity of assisting with her surgical care. Copy: Dr. Ana Lilia Adams M.D., F.A.C.S. 05/30/21 1146 <Electronically signed by Mikel Adams MD> Cosigner Signature (if applicable): CC: Dr. Ana Lilia Sagastume, DO; Dr. Mikel Adams MD Signed Ana Lilia Sagastume DO Work Phone: Start: 05-28-2021 End: 05-28-2021 Comments: See Note; NOTES: [facility] [address] [place] [address]. [address] [place] [address] OFFICE VISIT Date of Service: 05/28/21 MR#: [id number] Acct: [id number] Name: YADY COOMBS Rep #: [id number] : 1950 Provider: Dr. Mikel retana MD Age/Sex: 70/F Location: [facility] Status: Signed Intake Vital Signs 05/28/21 13:31 Height 5 ft 2 in Weight: 156 lb 8 oz BMI 28.6 BP 131/70 H Blood Pressure Location Rt brachial Position Sitting Respiration 18 Pulse 96 Pulse Source Monitor Temp 97.5 F L Temp Source Temporal Pulse Oximetry (%) 97 Oxygen Delivery Method room air Intake Visit Reasons: BIRADS 4 LEFT BREAST Chief Complaint: BIRADS 4 LEFT BREAST Pourer Metal Required: No Is patient in pain?: No Allergies No Known Allergies Allergy (Verified 05/28/21 13:32) anesthesia Adverse Reaction (Uncoded 08/02/20 14:21) Nausea Vomiting Medications cholecalciferol (vitamin D3) 4,000 unit PO DAILY 07/05/16 [History Confirmed 05/28/21] chlorthalidone 25 mg PO DAILY 12/06/19 [History Confirmed 05/28/21] duloxetine 60 mg PO DAILY 12/06/19 [History Confirmed 05/28/21] levothyroxine 112 mcg tablet 112 mcg PO DAILY 08/02/20 [History Confirmed 05/28/21] metoprolol succinate 50 mg tablet,extended release 24 hr 50 mg PO DAILY #90 tablet 08/24/20 [Rx Confirmed 05/28/21] brimonidine 0.15 % eye drops 1 drp OPHTHALMIC BID ml 11/20/20 [History Confirmed 05/28/21] alendronate 70 mg tablet 70 mg PO QWEEK 05/28/21 [History Confirmed 05/28/21] biotin 1 mg capsule 1 mg PO DAILY 05/28/21 [History Confirmed 05/28/21] calcium carbonate 600 mg calcium (1,500 mg) tablet 1,200 mg PO DAILY tab 05/28/21 [History Confirmed 05/28/21] magnesium aspartate-potassium aspartate 250 mg-250 mg capsule cap PO DAILY cap 05/28/21 [History Confirmed 05/28/21] [facility] Medical History (Updated 05/28/21 @ 13:[address] Mikel Adams MD) Abnormal mammogram of left breast Chest pain Depression Essential hypertension Family history of LA (myocardial infarction) Hypothyroidism SVT (supraventricular tachycardia) WPW (Yqsgq-Oftfgdcup-Jrdnn syndrome) Surgical History History of left heart catheterization (LHC) ( 08/28/20) History of radiofrequency ablation procedure for cardiac arrhythmia ( 2002) History of surgery on left wrist Family History Other Diabetes Heart disease Hypertension Myocardial infarction Social History Smoking Status: Never smoker alcohol intake: never substance use type: does not use caffeine: Yes Type: tea Number of servings: 6 HPI HPI HPI: YADY COOMBS, is a 70 F who presents to the office today for surgical consultation regarding her abnormal mammography. She is referred by Dr. Ana Lilia Sagastume and a written copy of my surgical consult recommendations will return to her. It is of note that on April 16, 2021 the patient had a positive COVID-19 test. She did require monoclonal antibody. She has been left with a chronic cough. She is hoping to see Dr. Mikel Rausch in the near future pulmonology On May 10, 2021 the patient had bilateral screening mammography. There is a stable 8.9 mm well- defined nodule in the deep upper outer aspect of the left breast. This was compared to previous examination of December 15, 2019. BI-RADS Category 0. Ultrasound was recommended. On May 15, 2020 a diagnostic left mammogram and left breast ultrasound was obtained. On mammogram is stable 8.1 x 5.1 mm well-defined nodule in the deep upper outer aspect of the left breast was identified. The ultrasound did not demonstrate any abnormality. The study was interpreted as BI-RADS Category 4 with biopsy recommended. There was comment made that the item appeared to be consistent with an intramammary lymph node. 70-year-old female. G 3. Menarche at age 14. First child was born when she was 20. She did breast-feed. No previous breast biopsies. Family history negative for breast cancer. She is not been on any estrogen medication. ROS General General: No weight change, appetite, fatigue, colon cancer, breast cancer or weakness HEENT HEENT: No difficulty swallowing, eye injury, eye surgery, swollen glands or hoarseness Endo Endocrine: Yes thyroid disease; No diabetes mellitus, thyroid cancer, Hair loss, heat intolerance or cold intolerance Skin Skin: No rash or changing moles Breast Breast: Yes abnormal mammogram; No left breast lump, right breast lump, nipple discharge, breast pain, abnormal US or breast enlargement Musc Musculoskeletal: Yes arthritis; No back problems, rheumatoid arthritis, gout or joint pain Cardio Cardiovascular: Yes high blood pressure; No murmur, pacemaker, heart disease, atrial fibrillation, heart attack, heart stent, palpitations, shortness of breat with exertion or chest pain Additional Details: Ablation for WPW Psych Psychiatric: Yes depression; No anxiety or hearing voices Resp Respiratory: Yes shortness of breath, No sleep apnea, Yes cough, No COPD, No asthma, No emphysema and No wheezing Gastro Gastrointestinal: No abdominal pain, No nausea or vomiting, No diarrhea, No constipation, No blood in stool, No acid reflux, No hemorrhoids, No ulcers, No gallbladder problem and No black,tarry stools Vadim Hematologic: No blood thinners, No blood disorders, No bleeding, No anemia and No blood clots Neuro Neurologic: No system reviewed and no additional complaints, except as documented, No as per HPI, No abnormal gait, No abnormal hearing, No abnormal movements, No abnormal speech, No behavioral changes, No burning sensations, No confusion, No convulsions, No disequilibrium, No dizziness, No localized weakness, No frequent falls, No headache(s), No lack of coordination, No loss of vision, No memory loss, Yes numbness, No other visual disturbances, No radicular pain, No restless legs, No sensory deficit, No syncope, Yes tingling, No tremor(s), No weakness and No other Exam Chest Other: Right breast: No focal mass, no nipple discharge, no axillary clavicular adenopathy Left breast: No focal mass. No nipple discharge. No axillary clavicular adenopathy Assessment and Plan Assessment and Plan (1) Abnormal mammogram of left breast: Status: Inactive Plan - Dr. Mikel Adams MD: 70-year-old female with an abnormal left mammogram with an 8 x 1 x 5.1 mm well-defined nodule upper outer aspect of the left breast. I recommended the patient is stereotactic needle core biopsy of this area and I discussed technique, benefit, risk, alternatives. She has had an opportunity to ask and have questions answered. We will schedule and proceed at her discretion. I very much appreciate the kind opportunity of assisting with her surgical care. Copy: Dr. Ana Lilia Adams M.D., F.A.C.S. Coding Level of Care Code 99698 Diagnoses Abnormal mammogram of left breast R92.8 05/28/21 1341 <Electronically signed by Mikel Adams MD> Date ___ Mikel Adams MD Cosigner Signature: Date ___ (if applicable) CC: DO Ana Lilia Fajardo DO Work Phone: Start: 05-15-2021 End: 07-17-2021 Comments: See Note; NOTES: [facility] [address] [place] [address] DIAG MAMM W/CAD, UNILAT MR#: [id number] Acct: [id number] Name: YADY COOMBS Rep #: [id number] : 1950 F 70 From: Kenton ferris MD PCP: Dr. Ana Lilia Sagastume, Status: [facility] Study: DIAG MAMM W/CAD, UNILAT Date of Exam: 05/15/21 Exam# [id number] Ordering Dr: Ana Lilia Sagastume DO MAMMOGRAPHY - UNILATERAL DIAGNOSTIC: LEFT BREAST REASON FOR EXAM: Female, 70 years old. A normal screening mammogram. PERTINENT HISTORY: Non-contributory. TECHNIQUE: Compression magnification views of the left breast were obtained. CAD: Full Field Digital Mammography with Computer Added Detection was performed. COMPARISON: Comparison is made with prior mammogram dated 05/10/2021. ___ FINDINGS: Breast Composition: There are scattered areas of fibroglandular density. There is a persistent 8.1 mm x 5.1 mm well-defined nodule in the upper lateral aspect of the left breast. This most likely presents a small lymph node. The targeted ultrasound did not demonstrate any abnormality. A biopsy is recommended. No other significant abnormalities are identified. ___ BI/DIAG MAMM W/CAD, UNILAT IMPRESSION: Stable 8.1 mm x 5.1 mm well-defined nodule in the deep upper lateral aspect of the left breast. Ultrasound did not demonstrate any abnormality. A targeted biopsy is recommended. ___ ASSESSMENT CATEGORY: BIRADS Category 4: Suspicious - Biopsy Should Be Considered. A letter regarding these results will be sent to the patient by the facility within 30 days. Approximately 10% of breast cancers are not detected by mammography. A normal mammogram should not delay biopsy of a clinically suspicious abnormality. Electronically Signed: Kenton Person MD at 10:44 EST , Service support , CC: Dr. Ana Lilia Sagastume DO Financial Counselor: Signed Ana Lilia Sagastume DO Work Phone: Start: 05-15-2021 End: 07-17-2021 Comments: See Note; NOTES: [facility] [address] [place] [address] Breast Limited Unilateral MR#: [id number] Acct: [id number] Name: YADY COOMBS Rep #: [id number] : 1950 F 70 From: Kenton ferris MD PCP: Dr. Ana Lilia Sagastume DO Status: REG CLI Study: Breast Limited Unilateral Date of Exam: Exam# [id number] Ordering Dr: Ana Lilia Sagastume DO STUDY: ULTRASOUND BREAST - LEFT REASON FOR EXAM: Female, 70 years old. Abnormal screening mammogram. TECHNIQUE: Axial and longitudinal images of the LEFT breast were performed with a high resolution ultrasound transducer. # OF IMAGES: 35 COMPARISON: Comparison is made with prior mammogram dated 05/10/2021. ___ FINDINGS: LEFT Breast: The entire lateral half of the left breast was examined by ultrasound. Incidental note is made of a 3 mm x 3 mm x 2 mm cyst at the 12 o''clock position of the breast at 1 cm from nipple. The mammographic abnormality is not visualized. Additional mammographic views will be performed. ___ US/Breast Limited Unilateral IMPRESSION: Incidental finding of a 3 mm x 2 mm x 3 mm cyst at the 12 o''clock position breast 1 cm from nipple. The mammographic abnormality was not visualized. Additional mammographic views will be obtained. ___ ASSESSMENT CATEGORY: BIRADS Category 0: Incomplete. Need additional imaging evaluation. A letter regarding these results will be sent to the patient by the facility within 30 days. Electronically Signed: Kenton Person MD at 10:58 EST , Service support , CC: Dr. Ana Lilia Sagastume DO Financial Counselor: Signed Ana Lilia Sagastume DO Work Phone: Start: 05-10-2021 End: 07-17-2021 Comments: See Note; NOTES: [facility] [address] [place] [address] SCRN MAMM (CAD)W/LEESA JENNINGS MR#: [id number] Acct: [id number] Name: YADY COOMBS Rep #: [id number] : 1950 F 70 From: Kenton ferris MD PCP: Dr. Ana Lilia Sagastume DO Status: REG CLI Study: SCRN MAMM (CAD)W/LEESA BILAT Date of Exam: 04/24 12/12 Exam# [id number] Ordering Dr: Ana Lilia Sagastume DO MAMMOGRAPHY - BILATERAL SCREENING REASON FOR EXAM: Female, 70 years old. Routine annual screening examination. PERTINENT HISTORY: Non-contributory. TECHNIQUE: Digital bilateral breast leesa (3D mammographic acquisition) in the CC and MLO projections. 2-D mediolateral oblique (MLO) and craniocaudad (CC) views of both breasts were obtained. CAD: Full Field Digital Mammography with Computer Added Detection was performed. COMPARISON: Comparison is made with prior study dated 12/15/2019. ___ FINDINGS: Breast Composition: There are scattered areas of fibroglandular density. There are no dominant masses or suspicious calcifications. Stable 8.9 mm well-defined nodule in the deep upper lateral aspect of the left breast. I suspect this to be a small lymph node. Correlation with ultrasound is recommended for further evaluation. No other significant abnormalities are identified. ___ BI/SCRN MAMM (CAD)W/LEESA BILAT IMPRESSION: 8 mm well-defined nodule in the deep upper lateral aspect of the left breast. I suspect this to be a benign-appearing lymph node. Correlation with ultrasound is recommended. ___ ASSESSMENT CATEGORY: BIRADS Category 0: Incomplete. Need additional imaging evaluation. A letter regarding these results will be sent to the patient by the facility within 30 days. Approximately 10% of breast cancers are not detected by mammography. A normal mammogram should not delay biopsy of a clinically suspicious abnormality. [id number] Electronically Signed: Kenton Person MD at 14:02 EST , Service support , CC: Dr. Ana Lilia Sagastume DO Financial Counselor: Signed Ana Lilia Sagastume DO Work Phone: Start: 05-02-2021 End: 05-02-2021 Comments: See Note; NOTES: [facility] [address] [place] [address] Chest PA and Lateral MR#: [id number] Acct: [id number] Name: YADY COOMBS Rep #: [id number] : 1950 F 70 From: Kenton ferris MD PCP: Dr. Ana Lilia Sagastume DO Status: DEP AMB Study: Chest PA and Lateral Date of Exam: 05/02/21 Exam# [id number] Ordering Dr: Ana Lilia Sagastume DO STUDY: X-RAY CHEST REASON FOR EXAM: Female, 70 years old. Cough and shortness of breath upon exertion. TECHNIQUE: PA and lateral views of the chest. COMPARISON: Comparison is made with prior study dated 08/24/2020. ___ FINDINGS: New coronary infiltrate is seen in the left upper lobe abutting the left major fissure. Radiographic follow-up is recommended. There is no demonstrated pleural abnormality. Normal size heart. Normal mediastinum and sam. Normal visualized pulmonary arteries. Normal visualized aortic arch and descending thoracic aorta. Normal visualized thoracic spine. Normal visualized ribs, clavicles, and shoulders. There is no demonstrated abnormality of the visualized soft tissue structures of the upper abdomen. ___ RAD/Chest PA and Lateral IMPRESSION: Left upper lobe pulmonary infiltrate. Radiographic follow-up is recommended. Electronically Signed: Kenton Person MD at 10:48 EST , Service support , CC: Dr. Ana Lilia Sagastume DO Financial Counselor: Signed Ana Lilia Sagastume DO Work Phone: Start: 04-23-2021 End: 04-23-2021 Comments: See Note; NOTES: [facility] [address] [place] [address] OFFICE VISIT Date of Service: 04/23/21 MR#: [id number] Acct: [id number] Patient: YADY COOMBS Rep #: [id number] : 1950 Provider: MORGAN galo Age/Sex: 70/F Location: [facility] Status: Signed Intake Intake Visit Reasons: COVID-19 Allergies No Known Allergies Allergy (Verified 11/20/20 12:56) anesthesia Adverse Reaction (Uncoded 08/02/20 14:21) Nausea Vomiting PFSH Medical History Chest pain Depression Essential hypertension Family history of LA (myocardial infarction) Hypothyroidism SVT (supraventricular tachycardia) WPW (Mynxc-Ngtlcbmde-Rhxmh syndrome) Surgical History History of left heart catheterization (LHC) ( 08/28/20) History of radiofrequency ablation procedure for cardiac arrhythmia ( 2002) History of surgery on left wrist Family History Other Diabetes Heart disease Hypertension Myocardial infarction Social History Smoking Status: Never smoker alcohol intake: never substance use type: does not use caffeine: Yes Type: tea Number of servings: 6 HPI HPI Details: Patient was informed that this visit will be billed to patient. This visit was conducted during COVID- pandemic. Statement read to the patient: This telehealth visit is being offered during our stay at home measures in response to the pandemic. It is subject to an office visit charge. The patient consents to continue. Symptom onset occurred: 04/15/21 Positive COVID-19 test occurred: 04/16/21 vaccine: YES Pfizer oxygen? NO The FDA has authorized the emergency use of monoclonal antibody treatment (bamlanivimab/etesevimab or casirivimab/imdevimab) for mild to moderate COVID-19 in adults and pediatric patients with positive results of direct SARS???Cov???2 viral testing ages 12 and older, at least 40 kg, who were not at high risk for progressing to severe COVID-19 and or hospitalization. The significant known and potential risks (allergic reactions or side effects from injection including brief pain, bleeding, bruising of the skin, soreness, swelling, possible infection at the infusion site) and benefits (decrease chance of progression to severe COVID-19) of a monoclonal antibody infusion, and the extent to which such potential risks and benefits are unknown. Patients treated with monoclonal antibody infusion should continue to self-isolate and use infection control measures (such as wear mask, isolate, social distance, avoid sharing personal items, clean and disinfect high touch surfaces, and frequent handwashing) according to the CDC guidelines. The fact sheet for patients, parents and caregivers will be provided prior to the administration of the medication. No drugs are approved by the FDA at this time to treat outpatients with mild or moderate symptoms of COVID-19. The following information was communicated to the patient or caregiver: Monoclonal antibody infusion is not an FDA approved drug. The FDA has authorized the emergency use of monoclonal antibody therapy. The patient had the option to refuse or accept treatment with monoclonal antibody therapy. The patient was informed that the number of people treated with monoclonal antibody therapy at this time is small. The potential benefits and the potential risks of monoclonal antibody therapy are not fully known. Potential benefits of monoclonal antibody include a reduced risk of progressing to severe COVID-19 infection. Potential risks or side effects of monoclonal antibody therapy include allergic reactions, side effects from injection including brief pain, bleeding, bruising of the skin, soreness, swelling, possible infection at the infusion site. The patient stated understanding of this information communicated and wished to proceed with monoclonal antibody infusion therapy. Current symptoms include: Cough, body aches. Qualifier: HTN ROS Const Constitutional: Positive for body ache Resp Respiratory: Positive for cough Exam Const General: cooperative and no acute distress Resp Effort Inspection: normal respiratory effort, able to speak in complete sentences and cough Neuro General: patient alert, patient awake and patient oriented x3 Cognition: normal cognition Speech: speech normal Psych Mental Status: mental status grossly normal Mood: congruent mood Attitude: cooperative Thought Process: normal Thought Content: normal Judgment: judgment good Details: Details:: Exam was limited due to phone visit with no video. Quality Reporting Tobacco Screening ([facility] 138) Smoking Status: Never smoker Coding Level of Care Code New Pt Level 1 Telephone Patient Type New History Problem Focused Exam Problem Focused Medical Decision Making Straight Forward Diagnoses COVID-19 U07.1 Over 65 years old Essential hypertension I10 Time Spent (min) 10 Comment 12059 Assessment and Plan Assessment and Plan (1) COVID-19: Status: Acute Plan - Mervat Appiah NP, [employer]: The patient remains appropriate for the Monoclonal Antibody Infusion. The patient states understanding of this information communicated and wishes to proceed with monoclonal antibody infusion therapy. Patient agrees to receive either balanivimab/etesvimab or casirivimab/imdevimab upon availability. (2) Over 65 years old: Status: Acute (3) Essential hypertension: Status: Chronic 04/23/21 09 <Electronically signed by Mervat Appiah NP [employer]> Date ___ Mervat Appiah NP [employer] Cosigner Signature: Date ___ (if applicable) CC: Dr. Ana Lilia Sagastume, DO Ana Lilia Sagastume DO Work Phone: Start: 11-20-2020 End: 11-20-2020 Comments: See Note; NOTES: [facility] [address] [facility] [place], [place] [id number] OFFICE VISIT Date of Service: 11/20/20 MR#: [id number] Acct: [id number] Name: YADY COOMBS Rep #: [id number] : 1950 Provider: MORGAN herman Age/Sex: 70/F Location: [facility] Status: Signed HPI HPI History of Present Illness Details: This is a 70-year-old white female who has previously been evaluated by [facility] in the remote past (greater than 3 years ago) who reestablished for evaluation of concerns of palpitations, chest discomfort, and an abnormal exercise tolerance test. In the past she had been diagnosed with WPW and underwent EPS/RFA in 2002. Since that time she does not believe she has had any recurrence of her supraventricular dysrhythmia. She states improvement in palpitations with changing from Calcium channel eva to beta eva. She denies chest, arm, jaw, or neck discomfort. She denies symptoms of shortness of breath with exertion, shortness of breath at rest, orthopnea, PND, sudden weight gain, or bilateral lower extremity edema. She denies chronic cough. She denies palpitations, lightheadedness, dizziness, near syncope, or syncopal episodes. She denies claudication issues. She denies fever or chills. She denies blood in urine, blood in stool, or epistaxis. She denies myalgia. She denies unexplainable fatigue. Her exercise tolerance is stable. Intake Vital Signs 11/20/20 12:59 11/20/20 13:01 Height 5 ft 1 in Weight: 150 lb BMI 28.3 27.1 BP 131/77 H Blood Pressure Location Lt brachial Position Sitting Respiration 18 Pulse 61 Pulse Source Monitor Pulse Oximetry (%) 97 Intake Visit Reasons: 3 M FU Pourer Metal Required: No Accompanied by: None Is patient in pain?: No Allergies No Known Allergies Allergy (Verified 11/20/20 12:56) anesthesia Adverse Reaction (Uncoded 08/02/20 14:21) Nausea Vomiting Medications cholecalciferol (vitamin D3) 4,000 unit PO DAILY 07/05/16 [History Confirmed 11/20/20] chlorthalidone 25 mg PO DAILY 12/06/19 [History Confirmed 11/20/20] duloxetine 60 mg PO DAILY 12/06/19 [History Confirmed 11/20/20] calcium carbonate 600 mg calcium (1,500 mg) tablet 600 mg PO DAILY 07/31/20 [History Confirmed 11/20/20] levothyroxine 112 mcg tablet 112 mcg PO DAILY 08/02/20 [History Confirmed 11/20/20] metoprolol succinate 50 mg tablet,extended release 24 hr 50 mg PO DAILY #90 tablet 08/24/20 [Rx Confirmed 11/20/20] alendronate 70 mg tablet 70 mg PO QWEEK tab 11/20/20 [History Confirmed 11/20/20] brimonidine 0.15 % eye drops 1 drp OPHTHALMIC BID ml 11/20/20 [History Confirmed 11/20/20] PFSH Medical History (Reviewed 11/20/20 @ 13:12 by Jimmy Delarosa DIRECTOR [employer], [employer]) Chest pain Depression Essential hypertension Family history of LA (myocardial infarction) Hypothyroidism SVT (supraventricular tachycardia) WPW (Vdmla-Phvrhqwui-Juxyv syndrome) Surgical History (Reviewed 11/20/20 @ 13:12 by Jimmy Delarosa DIRECTOR [employer], [employer]OR [employer]) History of left heart catheterization (LHC) ( 08/28/20) History of radiofrequency ablation procedure for cardiac arrhythmia ( 2002) History of surgery on left wrist Family History (Reviewed 11/20/20 @ 13:12 by Jimmy Delarosa DIRECTOR [employer], [employer]) Other Diabetes Heart disease Hypertension Myocardial infarction Social History (Reviewed 11/20/20 @ 13:12 by Jimmy Delarosa DIRECTOR [employer], [employer]) Smoking Status: Never smoker alcohol intake: never substance use type: does not use caffeine: Yes Type: tea Number of servings: 6 ROS Const Const: Negative for fatigue, weakness, body ache, fever(s) or chills ENT ENT: Negative for dizziness or Nosebleed/epistaxis Cardio Chest Pain: No Palpitations: No Edema: None Muscle aches with walking: None Resp Respiratory: Negative for SOB with activity, SOB at rest, SOB orthopnea SOB lying down, Cough or paroxysmal nocturnal dyspnea GI GI: Negative nausea, vomiting blood/hematemesis, bright, red blood in stools or black,tarry stools : Negative for hematuria or frequent nighttime urination/ nocturia Musc Musc: Negative for muscle aches/ myalgia Skin Skin: Negative non-healing lesions or rash Neuro Neuro: Negative for dizziness, lightheadedness, near syncope, syncope, orthostatic symptoms or weakness Endo Endo: Negative for fatigue Allergy Allergy/Immunology: Negative for rash Cardiology Exam Const Appearance: cooperative, healthy appearing, comfortable and no acute distress Nutritional Appearance: well nourished and overweight Orientation: alert, awake and oriented x3 Head Head: normal to inspection Ears: hearing grossly normal bilaterally Nose: external nose normal Face and Sinus: face symmetric Mouth: oral mucosae normal Eyes General: appearance normal, both eyes and all related structures Eyelids: eyelids normal EOM: EOM intact bilaterally Neck Neck: normal visual inspection and no JVD Carotids: normal carotid upstroke Chest Chest inspection: normal inspection of the chest, symmetric chest movement and normal respiratory effort; Negative cough Auscultation: Bilateral: Clear to Auscultation Cardio Rate: regular rate Rhythm: regular rhythm Heart sounds: S1 normal and S2 normal; Negative rub, gallop or murmur GI GI: normal to inspection Neuro General: patient alert, patient awake, patient oriented x3 and CN's II-XI intact bilaterally Skin Skin: no rashes or lesions noted Extremities Pulses: Normal: Right Posterior Tibial Pulse, Left Posterior Tibial Pulse, Right Radial Pulse and Left Radial Pulse Lower Extremity Edema: None: Bilateral Psych Psychological: normal affect Assessment and Plan Assessment and Plan (1) WPW (Mkrqt-Eyyqmeufn-Ygqce syndrome): Status: Acute Plan - Jimmy Delarosa DIRECTOR [employer], DIRECTOR [employer]C: This appears stable. She denies any symptomatic recurrence. She does note improvement symptoms since changing to metoprolol therapy. She will continue current medical therapy and we will continue to monitor. (2) SVT (supraventricular tachycardia): Status: Acute Plan - Jimmy Delarosa DIRECTOR [employer], DIRECTOR [employer]C: She will continue metoprolol therapy. (3) History of radiofrequency ablation procedure for cardiac arrhythmia: Status: Resolved Plan - Jimmy Delarosa DIRECTOR [employer], [employer]OR [employer]C: She will continue current medical therapy and we will continue to monitor. (4) Essential hypertension: Status: Chronic Plan - Jimmy Delarosa [employer]OR [employer], [employer]OR [employer]C: Patient's blood pressure is well-controlled. We will continue to monitor. We will not make any medication regimen changes. Plan Details Additional Comments: Thank you for allowing us to participate in the patients plan of care, if you have any questions please do not hesitate to call. This note was generated using a voice recognition system and there may be incorrect words, spelling or punctuation that were not noted when reviewing the office note prior to saving. Follow Up: 12 Months (PFM) Coding Level of Care Code Off vis,est,level 3 Diagnoses WPW (Jmwim-Fowpoxhjo-Cgisw syndrome) I45.6 SVT (supraventricular tachycardia) I47.1 History of radiofrequency ablation procedure for cardiac arrhythmia Z98.890 Essential hypertension I10 Coding Level of Care Code Off vis,est,level 3 Diagnoses WPW (Nofkx-Ppgfuumdf-Ijzle syndrome) I45.6 SVT (supraventricular tachycardia) I47.1 History of radiofrequency ablation procedure for cardiac arrhythmia Z98.890 Essential hypertension I10 Supplemental Info Supplemental Information Echocardiogram: 06-25-2020 Interpretation Summary Normal LV size. Left ventricular systolic function is normal. The estimated ejection fraction is 65 %. Stage 1 diastolic dysfunction. Stress Test Report Date: 06/21/2020 Procedure: Exercise tolerance test/imaging study Indications: Chest pain Consent: Per the patient Procedure: The patient exercised on a Collins protocol for 6 minutes achieving a peak heart rate of 139 bpm (92% predicted maximal heart rate) with a peak blood pressure 190/70 mmHg and a peak MET capacity of 7 METs. The baseline ECG demonstrated [sinus rhythm]. The peak exercise ECG demonstrated [about [address] depressions in the inferior and lateral leads, but a 6 beat run of nonsustained V. tach]. EKG during recovery revealed return of ST segments to baseline [There were no cardiac dysrhythmias pretest, during exercise, or recovery]. The functional capacity was considered normal for age. Patient had chest pain with exertion. The examination was discontinued secondary to achieving target heart rate. Impression: 1. Technically adequate (percent predicted maximal heart rate greater than 85%) exercise tolerance test 2. Stress test is positive for exercise-induced EKG changes of ischemia 3. The test test is positive for exercise-induced chest pain 4. Functional capacity is normal for age 5. Nuclear images pending Myocardial perfusion imaging study: Technique: The patient was injected with [] mCi of technetium 99m Cardiolite and subsequently rest SPECT Cardiolite nuclear imaging was obtained in the horizontal long, vertical long, and short axis views. The patient exercised on a Collins protocol. Please see above for details. The patient was injected with [] mCi of technetium 99m Cardiolite and subsequently stress SPECT Cardiolite nuclear imaging was obtained in the horizontal long, vertical long, and short axis views. A gated Cardiolite study at peak stress was obtained. Interpretation: Rest and stress SPECT Cardiolite nuclear imaging status post realignment, normalization, and attenuation correction, demonstrates normal myocardial radiotracer uptake on the stress images. There is no evidence of significant ischemia or infarction. The gated Cardiolite study demonstrates no significant regional wall motion abnormalities. The reported LVEF is greater than 70%. Impression: 1. There is no evidence of significant ischemia or infarction. Please see the EKG portion above as well. 2. The gated Cardiolite study reports an LVEF of greater than 70%. Heart catheterization from 08/28/2020: CONCLUSIONS Elevated Left Ventricular End Diastolic Pressure Normal LV size, wall motion,and systolic function LVEF: by LV gram 65 % Pala Multivessel CAD (non angiographically significant appearing) RECOMMENDATIONS Risk factor modification Medical therapy CORONARY ANGIOGRAPHY DOMINANCE: Right Dominant LEFT HEART ASSESSMENT Left Ventricular Ejection Fraction: by LV Gram 65 % Normal LV wall motion Elevated Left Ventricular End Diastolic Pressure LVEDP: 22 mmHg LEFT MAIN: Angiographically normal LEFT ANTERIOR DESCENDING ARTERY: PROX LAD: Mild luminal irregularities DIAGONAL 1: high diagoal branch: small vessel: ostial: smooth: 25 % Stenosis CIRCUMFLEX ARTERY: MID CIRC: Mild luminal irregularities RIGHT CORONARY ARTERY: Angiographically normal AORTIC ROOT: Angiographically normal She has undergone remote transthoracic echocardiogram on 04-28-2002 at which time her left ventricle was thought to be normal with an LVEF of 63% with notation of an apical false tendon and trivial MR/TR/CA and an estimated RV systolic pressure of 31 mmHg. She had a previous stress echocardiogram performed on 08-30-2002 at which time it was considered negative for echocardiographic evidence of stress-induced myocardial ischemia. She had an occasional PAC during exercise and recovery. Labs: LDL Cholesterol 123 mg/dL (0-130) HDL Cholesterol 68 mg/dL (40-) Triglycerides 67 mg/dL (-199) VLDL Cholesterol 13 mg/dL (5-40) Diagnostics: Electrocardiogram Echocardiogram Stress Test NM Stress Test Cardiac Catheterization Chest X-Ray Pulmonary: No Data to Display 11/20/20 1327 <Electronically signed by Jimmy Delarosa NP [employer]> Date ___ Jimmy Delarosa NP, NP-C Cosigner Signature: Date ___ (if applicable) CC: Dr. Ana Lilia Sagastume, DO Ana Lilia Sagastume DO Work Phone: Start: 08-28-2020 End: 08-28-2020 Cardiac Cath Diagnostic Comments: See Note; NOTES: [facility] Imaging Services [address] [place] [address] Cardiac Cath Diagnostic MR#: [id number] Acct: [id number] Name: YADY COOMBS Rep #: [id number] : 1950 69 From: Jorge Alberto Valle MD PCP: Dr. Ana Lilia Sagastume, DO Status:REG SDC Patient Name: YADY COOMBS Study Date: 08/28/2020 Performing: Jorge Alberto Valle MD Ht: 61.02 inches 155 cm : 1950 Wt: 143.3 lbs 65 kg Age: 69 Gender: female BSA: 1.64 PROCEDURE(S) PERFORMED JN02-ULF/COR/LV CLINICAL PROFILE AND INDICATIONS Indications: Suspected CAD, Cardiac Arrythmia Heart Failure: None Stress/Imaging Date: 06/21/2020tress Test with SPECT MPI: Positive Intermediate Risk (abnormal ECG portion) Angina Classification Anginal Classification w/in 2 Weeks: CCS II CAD Presentations: Other: chest pain; palpitations CONCLUSIONS Elevated Left Ventricular End Diastolic Pressure Normal LV size, wall motion,and systolic function LVEF: by LV gram 65 % Pala Multivessel CAD (non angiographically significant appearing) RECOMMENDATIONS Risk factor modification Medical therapy DESCRIPTION OF PROCEDURE The patient arrived to the procedure lab. The risks and benefits of the procedure as well as a full description of our services here and current unavailability of surgical backup were fully explained to the patient and/or their significant other prior to the catheterization. The Timeout was completed, verifying the correct patient and procedure. The patient's procedural site was prepped and draped in the usual fashion. Local anesthetic was given subcutaneously to right radial region with Lidocaine 2%. Using a modified Seldinger technique, arterial access was obtained via the right radial artery, a 6Fr sheath was inserted. Right Coronary Artery selective angiography was then performed in multiple views using a 5 Fr. 4.0 Sharon catheter. Left Coronary Artery selective angiography was performed in multiple views using a 5 Fr. 4.0 Sharon catheter. Left Ventriculography was performed in HENRIQUEZ projection using a 5 Fr. Pigtail catheter. LV to AO pullback pressures were then recorded.The arterial sheath was pulled and a TR Band was applied for hemostasis CORONARY ANGIOGRAPHY DOMINANCE: Right Dominant LEFT HEART ASSESSMENT Left Ventricular Ejection Fraction: by LV Gram 65 % Normal LV wall motion Elevated Left Ventricular End Diastolic Pressure LVEDP: 22 mmHg LEFT MAIN: Angiographically normal LEFT ANTERIOR DESCENDING ARTERY: PROX LAD: Mild luminal irregularities DIAGONAL 1: high diagoal branch: small vessel: ostial: smooth: 25 % Stenosis CIRCUMFLEX ARTERY: MID CIRC: Mild luminal irregularities RIGHT CORONARY ARTERY: Angiographically normal AORTIC ROOT: Angiographically normal COMPLICATIONS No Complications PROCEDURE MEDICATIONS Versed 1 mg IV Fentanyl 50 mcg IV Oxygen: 2 L/min via nasal cannula Heparin given IA 08/28/2020 09:28:59 Zofran 4 mg IV 08/28/2020 09:17:43 SUMMARY OF HEMODYNAMIC DATA Time AIR REST ECG 08:02:54 AO 138/57 (83) SA 09:24:39 AO 104/55 (75) 09:31:34 LV 128/3, 23 09:38:07 LV 124/0, 22 09:38:15 LV 121/2, 23 09:39:01 LV 114/3, 22 09:39:08 LVp 111/4, 18 09:39:14 AOp 128/58 (86) 09:39:19 Signed By Jorge Alberto Valle MD On 08/28/2020 10:01:30 ___ Jorge Alberto Valle MD 08/28/20 1001 Date ___ Jorge Alberto Valle MD Cosigner Signature: Date ___ (if indicated) CC: Dr. Ana Lilia Sagastume DO; Dr. Jorge Alberto Valle MD Date Dictated: 08/28/20926 Date Transcribed: 04/06/21 0943 Financial Counselor: PM Signed Lindsey Browne MD Work Phone: Start: 08-27-2020 End: 08-28-2020 History and Physical Exam Comments: See Note; NOTES: [facility] Medical Records Department [address], [place] History and Physical 08/27/20 1748 MR#: [id number] Acct: [id number] Name: YADY COOMBS Rep #: [id number] : 1950 69 From: Jorge Alberto Valle MD PCP: Dr. Ana Lilia Sagastume, DO Status:REG SDC Y Location: [facility] Problem List (1) Chest pain Status: Acute Qualifiers: (2) WPW (Vljcm-Pggahyqnm-Trnrb syndrome) Status: Acute (3) History of radiofrequency ablation procedure for cardiac arrhythmia Status: Resolved (4) Essential hypertension Status: Chronic History and Physical Date of Admission: 08/28/20 [facility] [address] [place] [address] OFFICE VISIT Date of Service: 08/02/20 MR#: [id number] Acct: [id number] Name: YADY COOMBS Rep #: [id number] : 1950 Provider: Dr. Jorge Alberto chavez MD Age/Sex: 69/F [place] [facility] [place] Status: Signed HPI HPI History of Present Illness Surgical H P: Yes Details: This is a 69-year-old white female who has previously been evaluated by [facility] in the remote past (greater than 3 years ago) who presents now for evaluation of concerns of palpitations, chest discomfort, and an abnormal exercise tolerance test. In the past she had been diagnosed with WPW and underwent EPS/RFA. Since that time she does not believe she has had any recurrence of her supraventricular dysrhythmia. She notes more recently she has had palpitations. She states she thinks these are occurring every day or 2 days. She also gets chest discomfort with this. She has undergone recent noninvasive evaluation on 06-25-2020. This included a transthoracic echocardiogram. The results are noted below. She had also undergone evaluation with an exercise tolerance test/imaging study which had been performed on 06-21-2020. Again the report was reviewed and is as noted below. Of note there was a discrepancy in her exercise tolerance test demonstrating a concern of an abnormal ECG exercise tolerance test with ST segment depression and an episode of nonsustained ventricular tachycardia. Her myocardial perfusion study appeared to be unremarkable. She has undergone remote transthoracic echocardiogram on 04-28-2002 at which time her left ventricle was thought to be normal with an LVEF of 63% with notation of an apical false tendon and trivial MR/TR/CA and an estimated RV systolic pressure of 31 mmHg. She had a previous stress echocardiogram performed on 08-30-2002 at which time it was considered negative for echocardiographic evidence of stress-induced myocardial ischemia. She had an o ccasional PAC during exercise and recovery. She had an ECG at [facility] on 06-08-2020. At that time it was reported as demonstrating sinus rhythm with premature supraventricular complexes with nonspecific ST segment abnormality. This was repeated today. She was noted to have sinus rhythm with no acute ECG changes. She has denied any other forms of discomfort. She denies any orthopnea or PND or peripheral pitting edema. There has been no near syncope or syncope. Intake Vital Signs 08/02/20 Height 5 ft 1 in 08/02/20 Weight: 144 lb 7 oz 08/02/20 BMI 27.3 08/02/20 BP 124/58 H 08/02/20 Blood Pressure Location Lt brachial 08/02/20 Position Sitting 08/02/20 Respiration 16 08/02/20 Pulse 72 08/02/20 Pulse Source Auscultation Intake Visit Reasons: Abn Stress/Ref. Keith Pourer Metal Required: No Accompanied by: Self Allergies No Known Allergies Allergy (Verified 08/02/20 11:11) anesthesia Adverse Reaction (Uncoded 08/02/20 14:21) Nausea Vomiting Medications Cholecalciferol (Vitamin D3) [Vitamin D3] 4,000 unit PO DAILY 07/05/16 [History Confirmed 08/02/20] Chlorthalidone 25 mg PO DAILY 12/06/19 [History Confirmed 08/02/20] Diltiazem [Cardizem] 120 mg PO DAILY 12/06/19 [History Confirmed 08/02/20] Duloxetine Hcl [Cymbalta] 60 mg PO DAILY 12/06/19 [History Confirmed 08/02/20] Alendronate Sodium 70 mg PO QMONTH 06/08/20 [History Confirmed 08/02/20] Brimonidine 0.15% [Alphagan P 0.15%] 1 drp OPHTHALMIC TID 06/08/20 [History Confirmed 08/02/20] calcium carbonate 600 mg calcium (1,500 mg) tablet 600 mg PO DAILY 07/31/20 [History Confirmed 08/02/20] isosorbide mononitrate 30 mg tablet,extended release 24 hr 30 mg PO DAILY 07/31/20 [History Confirmed 08/02/20] aspirin 81 mg tablet,delayed release 81 mg PO DAILY #30 tab 08/02/20 [Rx Confirmed 08/02/20] clopidogrel 75 mg tablet 75 mg PO DAILY #30 tab 08/02/20 [Rx Confirmed 08/02/20] levothyroxine 112 mcg tablet 112 mcg PO DAILY 08/02/20 [History Confirmed 08/02/20] PFSH Medical History WPW (Drzat-Daazonkgr-Maagu syndrome) (Acute) Chest pain (Acute) Hypothyroidism (Chronic) Family history of LA (myocardial infarction) (Acute) SVT (supraventricular tachycardia) (Acute) Essential hypertension (Chronic) Depression (Acute) Surgical History History of radiofrequency ablation procedure for cardiac arrhythmia (Resolved 2002) History of surgery on left wrist (Resolved) Family History Other Diabetes Heart disease Hypertension Myocardial infarction Social History (Updated 08/02/20 @ 15:[address] Jorge Alberto Valle MD) Smoking Status: Never smoker alcohol intake: never substance use type: does not use caffeine: Yes Type: tea Number of servings: 6 ROS Const Const: Positive for fatigue (sleepy); negative for weakness, frequent falls, excessive sweating, weight gain or weight loss Eyes Eyes: Negative for transient loss of vision, blurry vision or change in vision ENT ENT: Positive for dizziness (HX vertigo); negative for balance problems Cardio Chest Pain: Yes Character: other (pressure noted w/palpitations) Onset: at rest, exercise Location: left chest Duration: minutes Palpitations: Yes (just about daily) feels like its: fast Edema: None Muscle aches with walking: None Resp Respiratory: Positive for SOB with activity (occasional); negative for SOB at rest GI GI: Negative vomiting or vomiting blood/hematemesis : Negative for hematuria Musc Musc: Negative for muscle aches/ myalgia, muscle weakness, joint pain or balance problems Skin Skin: Negative non-healing lesions or rash Neuro Neuro: Positive for dizziness (HX vertigo) and vertigo (HX); negative for lightheadedness, orthostatic symptoms, frequent falls, weakness or blurry vision Vadim Hematologic/Lymphatic: Negative for easy bleeding Endo Endo: Positive for fatigue (sleepy); negative for excessive sweating Psych Psych: Negative for anxiety or depression Allergy Allergy/Immunology: Negative for hives, Negative for rash Cardiology Exam Const Appearance: cooperative, healthy appearing, comfortable, no acute distress, well developed and well groomed Nutritional Appearance: average body habitus Orientation: alert, awake and oriented x3 Head Head: normal to inspection, normocephalic and atraumatic Ears: hearing grossly normal bilaterally Nose: external nose normal Face and Sinus: face symmetric Eyes Eyelids: eyelids normal Conjunctivae: conjunctivae normal Pupils: PERRL EOM: EOM intact bilaterally Neck Neck: normal visual inspection and full ROM Carotids: normal carotid upstroke Chest Chest inspection: normal inspection of the chest, symmetric chest movement and normal respiratory effort Auscultation: Bilateral: Clear to Auscultation Cardio Palpation: normal PMI Rate: regular rate Rhythm: regular rhythm Heart sounds: S1 normal and S2 normal GI GI: normal to inspection, soft and bowel sounds present Neuro General: alert, awake, oriented x3 and moves all extremities Skin Skin: no rashes or lesions noted Extremities Pulses: Normal: Right Radial Pulse, Left Radial Pulse Lower Extremity Edema: None: Bilateral Psych Psychological: normal affect Assessment Plan 1. WPW (Pvuoe-Yuithsclf-Wukyl syndrome) I45.6 Plan At the present time she does have a history of WPW. She is undergone EPS/RFA. There is been no obvious recurrence of her dysrhythmia. Orders Orders: Left Heart Cath/COR/LV Percut Today Basic Metabolic Profile (BMP) Today Partial Thromboplast Time Today Prothrombin Time w/INR Today Cardiac Holter Monitor, Set-Up Today CBC W/Diff, Automated Today Chest PA and Lateral Today 2. History of radiofrequency ablation procedure for cardiac arrhythmia Z98.890 Plan Her previous EPS/RFA report is unavailable for review at this time. Orders Orders: Left Heart Cath/COR/LV Percut Today Basic Metabolic Profile (BMP) Today Partial Thromboplast Time Today Prothrombin Time w/INR Today Cardiac Holter Monitor, Set-Up Today CBC W/Diff, Automated Today Chest PA and Lateral Today 3. Precordial pain R07.2 Plan She does have a combination of palpitations and precordial chest discomfort that appears to be associated with them. She will have further evaluation with an Holter monitor. At the same time based upon her discomfort and her ECG exercise tolerance test results and her ventricular dysrhythmia finding it would not be unreasonable to further definitively evaluate her coronary anatomy for any underlying CAD with a diagnostic cardiac catheterization. The procedure and risks were discussed with her and she was agreeable to this. 4. Palpitations R00.2 Plan She does palpitations. Again there is concern as to whether this could be recurrence of her previous cardiac dysrhythmia versus underlying ectopy or some other form of dysrhythmia. As previously noted she did have evidence of ventricular tachycardia on her exercise tolerance test. Thus she will undergo evaluation, as she states this occurs usually on an every day occurrence, with an Holter monitor. 5. Ventricular tachycardia I47.2 Plan Her exercise ECG did demonstrate concerns of ventricular tachycardia. Again this does raise concern about the possibility of CAD despite her myocardial perfusion study remaining unremarkable which potentially could be a false negative study. Thus she will continue medical management and undergo evaluation as noted. Orders Orders: Left Heart Cath/COR/LV Percut Today Basic Metabolic Profile (BMP) Today Partial Thromboplast Time Today Prothrombin Time w/INR Today Cardiac Holter Monitor, Set-Up Today CBC W/Diff, Automated Today Chest PA and Lateral Today 6. Abnormal cardiovascular stress test R94.39 Plan Her exercise tolerance test is mixed. Based upon her symptoms and her ECG findings and her ventricular dysrhythmia findings it was felt prudent that she undergo further evaluation with diagnostic cardiac catheterization. Again the procedure and risks were discussed with her and she was agreeable to this. Orders Orders: Left Heart Cath/COR/LV Percut Today Basic Metabolic Profile (BMP) Today Partial Thromboplast Time Today Prothrombin Time w/INR Today Cardiac Holter Monitor, Set-Up Today CBC W/Diff, Automated Today Chest PA and Lateral Today 7. Essential hypertension I10 Plan She will continue medical therapy as deemed appropriate. Orders Orders: 12 Lead EKG performed by [facility] Today Left Heart Cath/COR/LV Percut Today Basic Metabolic Profile (BMP) Today Partial Thromboplast Time Today Prothrombin Time w/INR Today Cardiac Holter Monitor, Set-Up Today CBC W/Diff, Automated Today Chest PA and Lateral Today Plan Detail Other Orders Orders: 12 Lead EKG performed by [facility] Today I47.1 Left Heart Cath/COR/LV Percut Today R07.9 Basic Metabolic Profile (BMP) Today R07.9 Partial Thromboplast Time Today R07.9 Prothrombin Time w/INR Today R07.9 Cardiac Holter Monitor, Set-Up Today R07.9 CBC W/Diff, Automated Today R07.9 Chest PA and Lateral Today R07.9 Other Medications New: aspirin 81 mg PO DAILY 30 tabs 0RF clopidogrel (Plavix) 75 mg PO DAILY 30 tabs 1RF Follow Up 3 Months (PFM) Coding Level of Care Code Off vis,new,level 5 Diagnoses WPW (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 History of radiofrequency ablation procedure for cardiac arrhythmia Z98.890 Precordial pain R07.2 ?Chest pain type: precordial pain Palpitations R00.2 Ventricular tachycardia I47.2 Abnormal cardiovascular stress test R94.39 Essential hypertension I10 Coding Level of Care Code Off vis,new,level 5 Diagnoses WPW (Blfkm-Ciabjuhpu-Yvjof syndrome) I45.6 History of radiofrequency ablation procedure for cardiac arrhythmia Z98.890 Precordial pain R07.2 ?Chest pain type: precordial pain Palpitations R00.2 Ventricular tachycardia I47.2 Abnormal cardiovascular stress test R94.39 Essential hypertension I10 Supplemental Info Supplemental Information Echocardiogram: 06-25-2020 Interpretation Summary Normal LV size. Left ventricular systolic function is normal. The estimated ejection fraction is 65 %. Stage 1 diastolic dysfunction. Stress Test Report Date: 06/21/2020 Procedure: Exercise tolerance test/imaging study Indications: Chest pain Consent: Per the patient Procedure: The patient exercised on a Collins protocol for 6 minutes achieving a peak heart rate of 139 bpm (92% predicted maximal heart rate) with a peak blood pressure 190/70 mmHg and a peak MET capacity of 7 METs. The baseline ECG demonstrated [sinus rhythm]. The peak exercise ECG demonstrated [about [address] depressions in the inferior and lateral leads, but a 6 beat run of nonsustained V. tach]. EKG during recovery revealed return of ST segments to baseline [There were no cardiac dysrhythmias pretest, during exercise, or recovery]. The functional capacity was considered normal for age. Patient had chest pain with exertion. The examination was discontinued secondary to achieving target heart rate. Impression: 1. Technically adequate (percent predicted maximal heart rate greater than 85%) exercise tolerance test 2. Stress test is positive for exercise-induced EKG changes of ischemia 3. The test test is positive for exercise-induced chest pain 4. Functional capacity is normal for age 5. Nuclear images pending Myocardial perfusion imaging study: Technique: The patient was injected with [] mCi of technetium 99m Cardiolite and subsequently rest SPECT Cardiolite nuclear imaging was obtained in the horizontal long, vertical long, and short axis views. The patient exercised on a Collins protocol. Please see above for details. The patient was injected with [] mCi of technetium 99m Cardiolite and subsequently stress SPECT Cardiolite nuclear imaging was obtained in the horizontal long, vertical long, and short axis views. A gated Cardiolite study at peak stress was obtained. Interpretation: Rest and stress SPECT Cardiolite nuclear imaging status post realignment, normalization, and attenuation correction, demonstrates normal myocardial radiotracer uptake on the stress images. There is no evidence of significant ischemia or infarction. The gated Cardiolite study demonstrates no significant regional wall motion abnormalities. The reported LVEF is greater than 70%. Impression: 1. There is no evidence of significant ischemia or infarction. Please see the EKG portion above as well. 2. The gated Cardiolite study reports an LVEF of greater than 70%. Labs LDL Cholesterol 123 mg/dL (0-130) 12/09/16 HDL Cholesterol 68 mg/dL (40-) 12/09/16 Triglycerides 67 mg/dL (-199) 12/09/16 VLDL Cholesterol 13 mg/dL (5-40) 12/09/16 Diagnostics Electrocardiogram 08/02/20 Echocardiogram 06/25/20 Stress Test Nuclear Medicine 06/21/20 Stress Test 06/22/20 Chest X-Ray 06/08/20 COVID (Procedure Consent) Procedure Criteria Procedure Criteria: Yes Elective The surgeon/proceduralist and patient have discussed in detail the risk of exposure to and/or potential harm posed by the COVID-19 virus with having a surgery/procedure at this time versus the risk of??? delaying the surgery/procedure. It is not possible to know either the risk of delaying the surgery or procedure or chance of getting an infection with perfect accuracy, but a joint decision was made between the patient and the surgeon/proceduralist ???to proceed at this time with the scheduled surgery/procedure as indicated on the consent form. 08/02/20 1538 <Electronically signed by Jorge Alberto Valle MD> Date ___ Jorge Alberto Valle MD I have re-examined the patient. There are no clinical changes since date of exam. I have re-examined the patient. There are no clinical changes since date of exam. Procedure Criteria Procedure Type: Elective COVID Risk Discussion: The surgeon/proceduralist and patient have discussed in detail the risk of exposure to and/or potential harm posed by the COVID-19 virus with having a surgery/procedure at this time versus the risk of delaying the surgery/procedure. It is not possible to know either the risk of delaying the surgery or procedure or chance of getting an infection with perfect accuracy, but a joint decision was made between the patient and the surgeon/proceduralist to proceed at this time with the scheduled surgery/procedure as indicated on the consent form. 08/28/20 0905 <Electronically signed by Jorge Alberto Valle MD> Date ___ Jorge Alberto Valle MD Cosigner Signature: Date ___ (if applicable) CC: Dr. Ana Lilia Sagastume, DO; Dr. Jorge Alberto Valle MD Signed Ana Lilia Sagastume Start: 08-24-2020 End: 08-24-2020 Chest PA and Lateral Comments: See Note; NOTES: [facility] Imaging Services [address] [place] [address] Chest PA and Lateral MR#: [id number] Acct: [id number] Name: YADY COOMBS Rep #: [id number] : 1950 F 69 From: Byron horner MD PCP: Dr. Ana Lilia Sagastume DO Status: REG CLI Study: Chest PA and Lateral Date of Exam: 08/24/20 Exam# [id number] Ordering Dr: Jorge Alberto Valle MD INDICATION: chest pain EXAMINATION/TECHNIQUE: X-RAY - XR Chest 2 Views COMPARISON: 06/08/2020. FINDINGS: The lungs are clear. The cardiomediastinal silhouette is unremarkable. No pleural effusion or pneumothorax. No acute osseous abnormalities. Degenerative changes of thoracic spine. RAD/Chest PA and Lateral IMPRESSION: No acute radiographic abnormalities. Electronically Signed: Byron Nguyen MD at 21:43 EDT Tel , Service support , CC: Dr. Ana Lilia Sagastume DO; Dr. Jorge Alberto Valle MD Financial Counselor: Signed Jorge Alberto Valle Work Phone: Start: 08-02-2020 End: 08-02-2020 12 Lead EKG performed by BMS Comments: See Note; NOTES: [facility] [address] [place] [address] 12 Lead EKG performed by BMS 08/02/20 1108 MR#: [id number] Acct: [id number] Name: YADY COOMBS Rep #: [id number] : 1950 69 From: Jorge Alberto Valle MD Attending Dr: Dr. Jorge Alberto Valle MD Status: DE P SAILAJA Ordering Dr: Jorge Alberto Valle MD Date: 08/02/20 Location: [facility] [place] Sex: F C Admitted: BMS/12 Lead EKG performed by BMS ECG Report Interpretation Sinus Rhythm Poor R wave progressionElectronically signed on 08/02/2020 at 15:39 by Jorge Alberto Valle Software Version [id number] 08/02/20 1545 Date ___ Jorge Alberto Valle MD CC: Dr. Ana Lilia Sagastume, Date Dictated: 08/02/201107 Date Transcribed: 08/02/201107 Financial Counselor: PM Signed Jorge Alberto Valle Work Phone: Start: 08-02-2020 End: 08-02-2020 Cardiology Visit Report Comments: See Note; NOTES: [facility] [address] [place] [address]. [address] [place] [address] OFFICE VISIT Date of Service: 08/02/20 MR#: [id number] Acct: [id number] Name: YADY COOMBS Rep #: [id number] : 1950 Provider: Dr. Jorge Alberto chavez MD Age/Sex: 69/F [place] [facility] [place] Status: Signed HPI HPI History of Present Illness Surgical H P: Yes Details: This is a 69-year-old white female who has previously been evaluated by [facility] in the remote past (greater than 3 years ago) who presents now for evaluation of concerns of palpitations, chest discomfort, and an abnormal exercise tolerance test. In the past she had been diagnosed with WPW and underwent EPS/RFA. Since that time she does not believe she has had any recurrence of her supraventricular dysrhythmia. She notes more recently she has had palpitations. She states she thinks these are occurring every day or 2 days. She also gets chest discomfort with this. She has undergone recent noninvasive evaluation on 06-25-2020. This included a transthoracic echocardiogram. The results are noted below. She had also undergone evaluation with an exercise tolerance test/imaging study which had been performed on 06-21-2020. Again the report was reviewed and is as noted below. Of note there was a discrepancy in her exercise tolerance test demonstrating a concern of an abnormal ECG exercise tolerance test with ST segment depression and an episode of nonsustained ventricular tachycardia. Her myocardial perfusion study appeared to be unremarkable. She has undergone remote transthoracic echocardiogram on 04-28-2002 at which time her left ventricle was thought to be normal with an LVEF of 63% with notation of an apical false tendon and trivial MR/TR/CA and an estimated RV systolic pressure of 31 mmHg. She had a previous stress echocardiogram performed on 08-30-2002 at which time it was considered negative for echocardiographic evidence of stress-induced myocardial ischemia. She had an o ccasional PAC during exercise and recovery. She had an ECG at [facility] on 06-08-2020. At that time it was reported as demonstrating sinus rhythm with premature supraventricular complexes with nonspecific ST segment abnormality. This was repeated today. She was noted to have sinus rhythm with no acute ECG changes. She has denied any other forms of discomfort. She denies any orthopnea or PND or peripheral pitting edema. There has been no near syncope or syncope. Intake Vital Signs 08/02/20 Height 5 ft 1 in 08/02/20 Weight: 144 lb 7 oz 08/02/20 BMI 27.3 08/02/20 BP 124/58 H 08/02/20 Blood Pressure Location Lt brachial 08/02/20 Position Sitting 08/02/20 Respiration 16 08/02/20 Pulse 72 08/02/20 Pulse Source Auscultation Intake Visit Reasons: Abn Stress/Ref. Keith Pourer Metal Required: No Accompanied by: Self Allergies No Known Allergies Allergy (Verified 08/02/20 11:11) anesthesia Adverse Reaction (Uncoded 08/02/20 14:21) Nausea Vomiting Medications Cholecalciferol (Vitamin D3) [Vitamin D3] 4,000 unit PO DAILY 07/05/16 [History Confirmed 08/02/20] Chlorthalidone 25 mg PO DAILY 12/06/19 [History Confirmed 08/02/20] Diltiazem [Cardizem] 120 mg PO DAILY 12/06/19 [History Confirmed 08/02/20] Duloxetine Hcl [Cymbalta] 60 mg PO DAILY 12/06/19 [History Confirmed 08/02/20] Alendronate Sodium 70 mg PO QMONTH 06/08/20 [History Confirmed 08/02/20] Brimonidine 0.15% [Alphagan P 0.15%] 1 drp OPHTHALMIC TID 06/08/20 [History Confirmed 08/02/20] calcium carbonate 600 mg calcium (1,500 mg) tablet 600 mg PO DAILY 07/31/20 [History Confirmed 08/02/20] isosorbide mononitrate 30 mg tablet,extended release 24 hr 30 mg PO DAILY 07/31/20 [History Confirmed 08/02/20] aspirin 81 mg tablet,delayed release 81 mg PO DAILY #30 tab 08/02/20 [Rx Confirmed 08/02/20] clopidogrel 75 mg tablet 75 mg PO DAILY #30 tab 08/02/20 [Rx Confirmed 08/02/20] levothyroxine 112 mcg tablet 112 mcg PO DAILY 08/02/20 [History Confirmed 08/02/20] PFSH Medical History WPW (Nttlz-Biftcnqoh-Iupia syndrome) (Acute) Chest pain (Acute) Hypothyroidism (Chronic) Family history of LA (myocardial infarction) (Acute) SVT (supraventricular tachycardia) (Acute) Essential hypertension (Chronic) Depression (Acute) Surgical History History of radiofrequency ablation procedure for cardiac arrhythmia (Resolved 2002) History of surgery on left wrist (Resolved) Family History Other Diabetes Heart disease Hypertension Myocardial infarction Social History (Updated 08/02/20 @ 15:[address] Jorge Alberto Valle MD) Smoking Status: Never smoker alcohol intake: never substance use type: does not use caffeine: Yes Type: tea Number of servings: 6 ROS Const Const: Positive for fatigue (sleepy); negative for weakness, frequent falls, excessive sweating, weight gain or weight loss Eyes Eyes: Negative for transient loss of vision, blurry vision or change in vision ENT ENT: Positive for dizziness (HX vertigo); negative for balance problems Cardio Chest Pain: Yes Character: other (pressure noted w/palpitations) Onset: at rest, exercise Location: left chest Duration: minutes Palpitations: Yes (just about daily) feels like its: fast Edema: None Muscle aches with walking: None Resp Respiratory: Positive for SOB with activity (occasional); negative for SOB at rest GI GI: Negative vomiting or vomiting blood/hematemesis : Negative for hematuria Musc Musc: Negative for muscle aches/ myalgia, muscle weakness, joint pain or balance problems Skin Skin: Negative non-healing lesions or rash Neuro Neuro: Positive for dizziness (HX vertigo) and vertigo (HX); negative for lightheadedness, orthostatic symptoms, frequent falls, weakness or blurry vision Vadim Hematologic/Lymphatic: Negative for easy bleeding Endo Endo: Positive for fatigue (sleepy); negative for excessive sweating Psych Psych: Negative for anxiety or depression Allergy Allergy/Immunology: Negative for hives, Negative for rash Cardiology Exam Const Appearance: cooperative, healthy appearing, comfortable, no acute distress, well developed and well groomed Nutritional Appearance: average body habitus Orientation: alert, awake and oriented x3 Head Head: normal to inspection, normocephalic and atraumatic Ears: hearing grossly normal bilaterally Nose: external nose normal Face and Sinus: face symmetric Eyes Eyelids: eyelids normal Conjunctivae: conjunctivae normal Pupils: PERRL EOM: EOM intact bilaterally Neck Neck: normal visual inspection and full ROM Carotids: normal carotid upstroke Chest Chest inspection: normal inspection of the chest, symmetric chest movement and normal respiratory effort Auscultation: Bilateral: Clear to Auscultation Cardio Palpation: normal PMI Rate: regular rate Rhythm: regular rhythm Heart sounds: S1 normal and S2 normal GI GI: normal to inspection, soft and bowel sounds present Neuro General: alert, awake, oriented x3 and moves all extremities Skin Skin: no rashes or lesions noted Extremities Pulses: Normal: Right Radial Pulse, Left Radial Pulse Lower Extremity Edema: None: Bilateral Psych Psychological: normal affect Assessment Plan 1. WPW (Kqpbc-Wviwpwlcz-Lfwsp syndrome) I45.6 Plan At the present time she does have a history of WPW. She is undergone EPS/RFA. There is been no obvious recurrence of her dysrhythmia. Orders Orders: Left Heart Cath/COR/LV Percut Today Basic Metabolic Profile (BMP) Today Partial Thromboplast Time Today Prothrombin Time w/INR Today Cardiac Holter Monitor, Set-Up Today CBC W/Diff, Automated Today Chest PA and Lateral Today 2. History of radiofrequency ablation procedure for cardiac arrhythmia Z98.890 Plan Her previous EPS/RFA report is unavailable for review at this time. Orders Orders: Left Heart Cath/COR/LV Percut Today Basic Metabolic Profile (BMP) Today Partial Thromboplast Time Today Prothrombin Time w/INR Today Cardiac Holter Monitor, Set-Up Today CBC W/Diff, Automated Today Chest PA and Lateral Today 3. Precordial pain R07.2 Plan She does have a combination of palpitations and precordial chest discomfort that appears to be associated with them. She will have further evaluation with an Holter monitor. At the same time based upon her discomfort and her ECG exercise tolerance test results and her ventricular dysrhythmia finding it would not be unreasonable to further definitively evaluate her coronary anatomy for any underlying CAD with a diagnostic cardiac catheterization. The procedure and risks were discussed with her and she was agreeable to this. 4. Palpitations R00.2 Plan She does palpitations. Again there is concern as to whether this could be recurrence of her previous cardiac dysrhythmia versus underlying ectopy or some other form of dysrhythmia. As previously noted she did have evidence of ventricular tachycardia on her exercise tolerance test. Thus she will undergo evaluation, as she states this occurs usually on an every day occurrence, with an Holter monitor. 5. Ventricular tachycardia I47.2 Plan Her exercise ECG did demonstrate concerns of ventricular tachycardia. Again this does raise concern about the possibility of CAD despite her myocardial perfusion study remaining unremarkable which potentially could be a false negative study. Thus she will continue medical management and undergo evaluation as noted. Orders Orders: Left Heart Cath/COR/LV Percut Today Basic Metabolic Profile (BMP) Today Partial Thromboplast Time Today Prothrombin Time w/INR Today Cardiac Holter Monitor, Set-Up Today CBC W/Diff, Automated Today Chest PA and Lateral Today 6. Abnormal cardiovascular stress test R94.39 Plan Her exercise tolerance test is mixed. Based upon her symptoms and her ECG findings and her ventricular dysrhythmia findings it was felt prudent that she undergo further evaluation with diagnostic cardiac catheterization. Again the procedure and risks were discussed with her and she was agreeable to this. Orders Orders: Left Heart Cath/COR/LV Percut Today Basic Metabolic Profile (BMP) Today Partial Thromboplast Time Today Prothrombin Time w/INR Today Cardiac Holter Monitor, Set-Up Today CBC W/Diff, Automated Today Chest PA and Lateral Today 7. Essential hypertension I10 Plan She will continue medical therapy as deemed appropriate. Orders Orders: 12 Lead EKG performed by BMS Today Left Heart Cath/COR/LV Percut Today Basic Metabolic Profile (BMP) Today Partial Thromboplast Time Today Prothrombin Time w/INR Today Cardiac Holter Monitor, Set-Up Today CBC W/Diff, Automated Today Chest PA and Lateral Today Plan Detail Other Orders Orders: 12 Lead EKG performed by BMS Today I47.1 Left Heart Cath/COR/LV Percut Today R07.9 Basic Metabolic Profile (BMP) Today R07.9 Partial Thromboplast Time Today R07.9 Prothrombin Time w/INR Today R07.9 Cardiac Holter Monitor, Set-Up Today R07.9 CBC W/Diff, Automated Today R07.9 Chest PA and Lateral Today R07.9 Other Medications New: aspirin 81 mg PO DAILY 30 tabs 0RF clopidogrel (Plavix) 75 mg PO DAILY 30 tabs 1RF Follow Up 3 Months (PFM) Coding Level of Care Code Off vis,new,level 5 Diagnoses WPW (Hrgen-Avuhqlgyi-Hsude syndrome) I45.6 History of radiofrequency ablation procedure for cardiac arrhythmia Z98.890 Precordial pain R07.2 ?Chest pain type: precordial pain Palpitations R00.2 Ventricular tachycardia I47.2 Abnormal cardiovascular stress test R94.39 Essential hypertension I10 Coding Level of Care Code Off vis,new,level 5 Diagnoses WPW (Ovtqp-Ooygcwavf-Doqtr syndrome) I45.6 History of radiofrequency ablation procedure for cardiac arrhythmia Z98.890 Precordial pain R07.2 ?Chest pain type: precordial pain Palpitations R00.2 Ventricular tachycardia I47.2 Abnormal cardiovascular stress test R94.39 Essential hypertension I10 Supplemental Info Supplemental Information Echocardiogram: 06-25-2020 Interpretation Summary Normal LV size. Left ventricular systolic function is normal. The estimated ejection fraction is 65 %. Stage 1 diastolic dysfunction. Stress Test Report Date: 06/21/2020 Procedure: Exercise tolerance test/imaging study Indications: Chest pain Consent: Per the patient Procedure: The patient exercised on a Collins protocol for 6 minutes achieving a peak heart rate of 139 bpm (92% predicted maximal heart rate) with a peak blood pressure 190/70 mmHg and a peak MET capacity of 7 METs. The baseline ECG demonstrated [sinus rhythm]. The peak exercise ECG demonstrated [about [address] depressions in the inferior and lateral leads, but a 6 beat run of nonsustained V. tach]. EKG during recovery revealed return of ST segments to baseline [There were no cardiac dysrhythmias pretest, during exercise, or recovery]. The functional capacity was considered normal for age. Patient had chest pain with exertion. The examination was discontinued secondary to achieving target heart rate. Impression: 1. Technically adequate (percent predicted maximal heart rate greater than 85%) exercise tolerance test 2. Stress test is positive for exercise-induced EKG changes of ischemia 3. The test test is positive for exercise-induced chest pain 4. Functional capacity is normal for age 5. Nuclear images pending Myocardial perfusion imaging study: Technique: The patient was injected with [] mCi of technetium 99m Cardiolite and subsequently rest SPECT Cardiolite nuclear imaging was obtained in the horizontal long, vertical long, and short axis views. The patient exercised on a Collins protocol. Please see above for details. The patient was injected with [] mCi of technetium 99m Cardiolite and subsequently stress SPECT Cardiolite nuclear imaging was obtained in the horizontal long, vertical long, and short axis views. A gated Cardiolite study at peak stress was obtained. Interpretation: Rest and stress SPECT Cardiolite nuclear imaging status post realignment, normalization, and attenuation correction, demonstrates normal myocardial radiotracer uptake on the stress images. There is no evidence of significant ischemia or infarction. The gated Cardiolite study demonstrates no significant regional wall motion abnormalities. The reported LVEF is greater than 70%. Impression: 1. There is no evidence of significant ischemia or infarction. Please see the EKG portion above as well. 2. The gated Cardiolite study reports an LVEF of greater than 70%. Labs LDL Cholesterol 123 mg/dL (0-130) 12/09/16 HDL Cholesterol 68 mg/dL (40-) 12/09/16 Triglycerides 67 mg/dL (-199) 12/09/16 VLDL Cholesterol 13 mg/dL (5-40) 12/09/16 Diagnostics Electrocardiogram 08/02/20 Echocardiogram 06/25/20 Stress Test Nuclear Medicine 06/21/20 Stress Test 06/22/20 Chest X-Ray 06/08/20 COVID (Procedure Consent) Procedure Criteria Procedure Criteria: Yes Elective The surgeon/proceduralist and patient have discussed in detail the risk of exposure to and/or potential harm posed by the COVID-19 virus with having a surgery/procedure at this time versus the risk of??? delaying the surgery/procedure. It is not possible to know either the risk of delaying the surgery or procedure or chance of getting an infection with perfect accuracy, but a joint decision was made between the patient and the surgeon/proceduralist ???to proceed at this time with the scheduled surgery/procedure as indicated on the consent form. 08/02/20 1538 <Electronically signed by Jorge Alberto Valle MD> Date ___ Jorge Alberto Valle MD Cosigner Signature: Date ___ (if applicable) CC: DO Ana Lilia Fajardo Start: 06-25-2020 End: 06-25-2020 Echo Complete Comments: See Note; NOTES: [facility] [address] [place] [address]. [place] [address] Echo Complete 06/25/20 1308 MR#: [id number] Acct: [id number] Name: YADY COOMBS Rep #: [id number] : 1950 69 From: Narendra Duncan MD Attending Dr: Dr. Ana Lilia Sagastume DO Status: R EG CLI Ordering Dr: Ana Lilia Sagastume DO Date: 06/25/20 Location: [facility] Sex: F C Admitted: Reason For Study: Chest Pain Procedure This was a 2D Doppler, Color Flow transthoracic echocardiogram. Exam performed in department. Left Ventricle Normal LV size. Apical false tendon noted. Left ventricular systolic function is normal. The estimated ejection fraction is 65 %. Stage 1 diastolic dysfunction. No regional wall motion abnormalities noted. Right Ventricle Normal RV size. Normal systolic function. Atria Normal left atrium. Normal right atrium. Mitral Valve Normal mitral valve. Tricuspid Valve Normal tricuspid valve. Aortic Valve Normal aortic valve. Trisinus/trileaflet aortic valve. Pulmonic Valve Normal pulmonic valve. Great Vessels Normal aortic root. The pulmonary artery is normal size. Normal inferior vena cava. Pericardium/Pleural No pericardial effusion. MMode/2D Measurements Calculations LVIDd: 3.9 cm IVSd: 1.0 cm Ao root diam: 3.1 cm LVIDs: 2.0 cm LVPWd: 0.79 cm LA dimension: 3.2 cm FS: 48.2 % LAV(MOD-bp): 42.8 ml LA A4 area: 17.8 cm2 RA A4 area: 17.9 cm2 LAV(MOD-bp) Indexed: 26.0 ml/m2 LAV(MOD-sp2): 38.5 ml LAV(MOD-sp4): 46.0 ml Time Measurements MV dec time: 0.31 sec Doppler Measurements Calculations MV E max rosemary: 72.3 cm/sec Lat Peak E' Rosemary: 8.9 cm/sec Med Peak E' Rosemary: 8.1 cm/sec MV A max rosemary: 93.8 cm/sec E/E' lat: 8.1 E/E' med: 9.0 MV E/A: 0.77 MV V2 max: 106.9 cm/sec MV P1/2t max rosemary: 104.0 cm/sec Ao V2 max: 146.5 cm/sec MV max P.6 mmHg MV P1/2t: 105.7 msec Ao max P.6 mmHg MV V2 mean: 60.6 cm/sec MV dec slope: 288.1 cm/sec2 MV mean P.7 mmHg MVA(P1/2t): 2.1 cm2 MV V2 VTI: 35.1 cm LV V1 max: 127.3 cm/sec PA V2 max: 105.0 cm/sec LV V1 max P.5 mmHg Interpretation Summary Normal LV size. Left ventricular systolic function is normal. The estimated ejection fraction is 65 %. Stage 1 diastolic dysfunction. ____ _ Ordering Physician: Ana Lilia Sagastume Referring Physician: Ana Lilia Sagastume Performed By: Slava Lopez RCS 06/25/20 1619 Date ___ Narendra Duncan MD CC: Dr. Ana Lilia Sagastume DO Date Dictated: 06/25/20 1308 Date Transcribed: 06/25/201618 Financial Counselor: Signed Ana Lilia Sagastume Work Phone: Start: 06-22-2020 End: 06-22-2020 Stress Report Comments: See Note; NOTES: [facility] Cardiovascular Services [address] [place] [address] MR#: [id number] Acct: [id number] Name: YADY COOMBS Rep #: [id number] : 1950 69 From: Nino Souza MD Primary Care: Dr. Ana Lilia Sagastume DO Status: REG CLI Referring Dr: Ana Lilia Sagastume DO Sex: F C Stress Test Report Date: 06/21/2020 Procedure: Exercise tolerance test/imaging study Indications: Chest pain Consent: Per the patient Procedure: The patient exercised on a Collins protocol for 6 minutes achieving a peak heart rate of 139 bpm (92% predicted maximal heart rate) with a peak blood pressure 190/70 mmHg and a peak MET capacity of 7 METs. The baseline ECG demonstrated [sinus rhythm]. The peak exercise ECG demonstrated [about [address] depressions in the inferior and lateral leads, but a 6 beat run of nonsustained V. tach]. EKG during recovery revealed return of ST segments to baseline [There were no cardiac dysrhythmias pretest, during exercise, or recovery]. The functional capacity was considered normal for age. Patient had chest pain with exertion. The examination was discontinued secondary to achieving target heart rate. Impression: 1. Technically adequate (percent predicted maximal heart rate greater than 85%) exercise tolerance test 2. Stress test is positive for exercise-induced EKG changes of ischemia 3. The test test is positive for exercise-induced chest pain 4. Functional capacity is normal for age 5. Nuclear images pending Myocardial perfusion imaging study: Technique: The patient was injected with [] mCi of technetium 99m Cardiolite and subsequently rest SPECT Cardiolite nuclear imaging was obtained in the horizontal long, vertical long, and short axis views. The patient exercised on a Collins protocol. Please see above for details. The patient was injected with [] mCi of technetium 99m Cardiolite and subsequently stress SPECT Cardiolite nuclear imaging was obtained in the horizontal long, vertical long, and short axis views. A gated Cardiolite study at peak stress was obtained. Interpretation: Rest and stress SPECT Cardiolite nuclear imaging status post realignment, normalization, and attenuation correction, demonstrates normal myocardial radiotracer uptake on the stress images. There is no evidence of significant ischemia or infarction. The gated Cardiolite study demonstrates no significant regional wall motion abnormalities. The reported LVEF is greater than 70%. Impression: 1. There is no evidence of significant ischemia or infarction. Please see the EKG portion above as well. 2. The gated Cardiolite study reports an LVEF of greater than 70%. This note was generated with Transmetricsation software. It may contain incorrect words, spelling, and punctuation that were not noted in checking the note before signing. 06/22/20 0686 <Electronically signed by Nino Souza MD> Date ___ Nino Souza MD CC: Dr. Ana Lilia Sagastume DO Date Dictated: 06/22/201842 Date Transcribed: 06/22/201842 Financial Counselor: NN Signed Ana Lilia Sagastume Start: 06-08-2020 End: 06-09-2020 Emergency Department Summary Comments: See Note; NOTES: [facility] Medical Records Department [address] [place] [address] Emergency Department Summary 06/08/20 MR#: [id number] Acct: [id number] Name: YADY COOMBS Rep #: [id number] : 1950 69 From: Donte Esparza DO PCP: Dr. Ana Lilia Sagastume DO Status:DEP ER History of Present Illness Chief Complaint: Chest Pain Informant: Patient Narrative: Patient is a 69-year-old female with a past medical history of WPW status post ablation approximately 18 years ago, hypothyroidism who presents to the emergency department for palpitations. This started approximately 30 minutes upon arrival to the ED. Sure watch was telling her heart rate was in the 120s. She felt her heart racing and started to get pain in her right arm. She denies ever having this happen before. She denies any history of CAD. She denied having any significant shortness of breath throughout this episode. Whenever she arrived to the emergency department she started to feel better and on my evaluation she is completely asymptomatic. She denies any recent illness. She denies any fevers or chills. No cough. No nausea/vomiting or diarrhea. She did have a recent decrease in her Synthroid a few weeks ago and she is supposed to have her TSH checked in a week or 2. She denies any leg swelling or calf pain. No history of DVT/PE. Past Medical History - Allergies and Home Meds Allergies/Adverse Reactions: Allergies No Known Allergies Allergy (Verified 06/08/20 21:54) Primary Care Physician: Ana Lilia Sagastume DO [Primary Care Provider] - 2 Days Prior records reviewed: Yes Past Medical History: - - WPW status post ablation, hypothyroidism Smoking Status: Never smoker Review of Systems All systems negative except as indicated General: Denies: Chills, Fever, Sweats Eyes: Denies: Visual changes - bilaterally, Diplopia ENT: Denies: Rhinorrhea, Sore throat Cardiovascular: Reports: Chest pain, Palpitations, Heart racing Respiratory: Denies: Dyspnea, Cough, Dyspnea on exertion Gastrointestinal: Denies: Abdominal pain, Nausea, Vomiting, Diarrhea Genitourinary: Denies: Dysuria, Hematuria, Frequency Musculoskeletal: Denies: Back pain, Extremity Pain Skin: Denies: Rash, Wounds Neurological: Denies: Headache, Weakness, Numbness Physical Exam Vital Signs/Narrative: Vital Signs Temp Pulse Resp BP Pulse Ox 06/08/20 21:50 97.7 F L 97 22 H 151/84 H 97 Inital Vital Signs reviewed: Yes General: Well nourished, Well developed, No Acute Distress Head: Normocephalic, Atraumatic Eyes: Perrl, EOMI ENT: Moist mucous membranes, No rhinorrhea Neck: Supple, Nontender Cardiovascular: Regular rhythm, No murmurs, Tachycardia - Borderline Respiratory: No distress, CTA bilaterally, Chest nontender Abdomen: Soft, Nontender, Nondistended, Normal bowel sounds Back: Nontender, Normal Inspection Extremities: Nontender, No edema. Negative for: Edema, Calf Tenderness Skin: Normal color, No rash Neurological: Alert, Oriented x3, Cranial nerves II-XII grossly intact, Normal Strength, Normal Sensation Psychological: Normal affect, Normal Mood Diagnostic/Tx/Re-eval - Rhythm Strip Rhythm Strip: A-fib - Patient's rhythm strip upon arrival showed an irregularly irregular rhythm with rates up to 150s. She did convert back to a sinus rhythm. - EKG Initial EKG Interpretation: - - Rate of 96 bpm and normal sinus rhythm. There is a PAC present. Otherwise normal intervals. Normal axis. No significant ST elevations or depressions. Prior EKG for comparison was performed on July 05, 2016 which is similar in appearance. - Medical Decision Making Patient presents to the emergency department for chest pain and palpitations. She was in atrial fibrillation upon arrival but converted without any management on her own. She is completely asymptomatic at this time. Basic lab work being obtained along with chest x-ray. Patient's lab work-up did not reveal any significant acute abnormality. Her potassium was mildly low so this was replaced orally. Her troponin is negative. She otherwise has been stable throughout ED stay without any repeat symptoms. She is adamant on going home now. She needs to have close follow-up with her PCP as I am not sure what caused her to go into this episode of A. fib with RVR. She will likely need a stress test but this can be done as an outpatient. Strict return precautions were discussed with her including any repeat symptoms or developing any chest pain or shortness of breath. She understands and is agreeable this plan. She is discharged home in stable condition. All questions were answered. ED Disposition - Plan for ED Patient: Disposition: Home or Assisted Living Diagnosis: Episodic atrial fibrillation, Palpitations Instructions: ED Palpitations Referrals: Ana Lilia Sagastume DO [Primary Care Provider] - 2 Days What to do if you have Problems For any increased pain, shortness of breath, bleeding, nausea or vomiting, chest pain, or any unexpected problems, contact your Primary Care Provider. Call [facility] ([phone]) or report to the closest Emergency Room. Call 911 if necessary. 06/09/20 0028 <Electronically signed by Donte Esparza DO> Date ___ Donte Esparza DO Cosigner Signature (If Indicated): Date CC: DO Ana Lilia Fajardo Start: 06-08-2020 End: 06-08-2020 Chest 1 View (Portable) Comments: See Note; NOTES: [facility] Imaging Services [address] [place] [address] Chest 1 View (Portable) MR#: [id number] Acct: [id number] Name: YADY COOMBS Rep #: [id number] : 1950 F 69 From: Henry miller MD PCP: Dr. Ana Lilia Sagastume DO Status: REG ER Study: Chest 1 View (Portable) Date of Exam: 06/08/20 Exam# [id number] Ordering Dr: Donte Esparza DO STUDY: X-RAY CHEST REASON FOR EXAM: Female, 69 years old. chest pain radiating into right arm x 30 min. TECHNIQUE: Single AP portable view of the chest. COMPARISON: 07/05/2016. ___ FINDINGS: The lungs are clear and expanded. There is no demonstrated pleural abnormality. Normal size heart. Normal mediastinum and sam. Normal visualized pulmonary arteries. Normal visualized aortic arch and descending thoracic aorta. Normal visualized thoracic spine. Normal visualized ribs, clavicles, and shoulders. There is no demonstrated abnormality of the visualized soft tissue structures of the upper abdomen. ___ RAD/Chest 1 View (Portable) IMPRESSION: Normal x-ray examination of the chest. Electronically Signed: Henry Barkley MD at 22:34 EST , Service support , CC: Dr. Donte Esparza DO; Dr. Ana Lilia Sagastume DO Financial Counselor: Signed Ana Lilia Sagastume Start: 06-08-2020 End: 06-13-2020 12 Lead EKG Comments: See Note; NOTES: [facility] Cardiovascular Services [address] [place] [address] 12 Lead EKG 06/08/20 2156 MR#: [id number] Acct: [id number] Name: YADY COOMBS Rep #: [id number] : 1950 69 From: Narendra Duncan MD Attending Dr: Status: DEP ER Ordering Dr: Donte Esparza DO Date: 06/08/20 Location: ED Sex: F C Admitted: Test Reason : CHEST PAIN Blood Pressure : / mmHG Vent. Rate : 096 BPM Atrial Rate : 096 BPM P-R Int : 164 ms QRS Dur : 074 ms QT Int : 370 ms P-R-T Axes : 058 048 054 degrees QTc Int : 467 ms Sinus rhythm with Premature supraventricular complexes Nonspecific ST abnormality Abnormal ECG Confirmed by NARENDRA DUNCAN MD ([id number]), editorial director MARCELO ROJAS ([id number]) on 06/13/2020 6:43:05 AM Referred By: AWAIS Confirmed By:NARENDRA DUNCAN MD 06/13/20 0643 Date ___ Narendra Duncan MD CC: Dr. Donte Esparza DO; Dr. Ana Lilia Sagastume DO Signed Ana Lilia Sagastume Start: 12-15-2019 End: 12-20-2019 Dexa Bone Density Study Comments: See Note; NOTES: [facility] Imaging Services [address] [place] [address] Dexa Bone Density Study MR#: [id number] Acct: [id number] Name: YADY COOMBS Rep #: [id number] : 1950 F 69 From: Kenton ferris MD PCP: Dr. Ana Lilia Sagastume DO Status: [facility] Study: Dexa Bone Density Study Date of Exam: 12/15/19 Exam# [id number] Ordering Dr: Ana Lilia Sagastume DO STUDY: DUAL ENERGY X-RAY ABSORPTIOMETRY / DXA REASON FOR EXAM: Female, 69 years old. 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 COMPARISON: Comparison is made with prior examination dated 11-07-15. ___ FINDINGS: Lumbar Spine (L1-L4): g/cm2 (1.136) / T-score (-0.4) / Z-score (1.3) Findings are suggestive of normal bone density with a low fracture risk. Left Femur Total: g/cm2 (0.838) / T-score (-1.3) / Z-score (0.1) Left Femoral Neck: g/cm2 (0.802) / T-score (-1.7) / Z-score (-0.1) Right Femur Total: g/cm2 (0.785) / T-score (-1.8) / Z-score (-0.4) Right Femoral Neck: g/cm2 (0.802) / T-score (-1.7) / Z-score (-0.1) The T-Scores on the most recent prior examination were: Lumbar Spine (L1-L4): There has been worsening of bone density since the previous examination. Left Femur Total: which represents an improvement of 0.4%. Right Femur Total: which represents a worsening of 2%. ___ BD/Dexa Bone Density Study IMPRESSION: The patient is considered osteopenic as outlined below according to World Tristin Organization (WHO) criteria with a moderate fracture risk. There has been worsening of bone density since the previous examination. ___ Reference Information: The T-score is the number of standard deviations above or below the standard which is normal for young adults at their peak bone mineral density. The World Health Organization (WHO) interprets the T-scores as follows: Above -1 Normal bone density Between -1 and -2.5 Osteopenia Equal to / or below -2.5 Osteoporosis As a practical clinical guideline, osteopenia may be graded as follows: Mild -1 through -1.5 Moderate -1.6 through -2.0 Severe -2.1 through -2.4 The Z-score is the number of standard deviations above or below age-matched controls. A Z-score of less than -1.5 would be considered abnormal. References: 1. NIH Osteoporosis and Related Bone Diseases http://www.osteo.org 2. International Society for Clinical Densitometry http://www.iscd.org 3. National Osteoporosis Foundation http://www.nof.org Electronically Signed: Kenton Person, at 8:48 EDT , Service support , CC: Dr. Ana Lilia Sagastume DO Financial Counselor: Signed Ana Lilia Sagastume Work Phone: Start: 12-15-2019 End: 12-15-2019 SCREEN MAMM (CAD) W/LEESA BILAT Comments: See Note; NOTES: [facility] Imaging Services [address] [place] [address] SCREEN MAMM (CAD) W/LEESA BILAT MR#: [id number] Acct: [id number] Name: YADY COOMBS Rep #: [id number] : 1950 F 69 From: Harlan Fajardo MD PCP: Dr. Ana Lilia Sagastume DO Status: REG CLI Study: SCREEN MAMM (CAD) W/LEESA BILAT Date of Exam: 0 12/15/19 Exam# [id number] Ordering Dr: Ana Lilia Sagastume DO MAMMOGRAPHY - BILATERAL SCREENING 3-D TOMOSYNTHESIS REASON FOR EXAM: Female, 69 years old. Routine screening PERTINENT HISTORY: NO FAM HX - NO PREV SURG''S - CURRENT LT BRUISE - PREV MAMM 15+ YRS AGO - UNAVAILABLE FOR COMPARISON. TECHNIQUE: 2-D mammograms and 3-D Tomosynthesis of the breast (s) were performed. CAD was performed. COMPARISON: None. FINDINGS: The breast composition is composed of scattered fibroglandular density. Scattered benign calcifications are seen. No dense spiculated masses or suspicious microcalcifications are identified. No architectural distortion is identified. There is no skin thickening or retraction. BI/SCREEN MAMM (CAD) W/LEESA BILAT IMPRESSION: No mammographic signs of malignancy. Routine yearly mammograms recommended. ASSESSMENT CATEGORY: BIRADS Category 1: Negative. A letter regarding these results will be sent to the patient by the facility within 30 days. FOLLOW UP RECOMMENDATION: Yearly follow up mammogram recommended. (A) Approximately 10% of breast cancers are not detected by mammography. A normal mammogram should not delay biopsy of a clinically suspicious abnormality. Electronically Signed: Carlos Fajardo MD at 14:09 EDT , Service support , CC: Dr. Ana Lilia Sagastume DO Financial Counselor: Signed Ana Lilia Sagastume Work Phone: Start: 12-06-2019 End: 12-06-2019 Emergency Department Summary Comments: See Note; NOTES: [facility] Medical Records Department [address] [place] [address] Emergency Department Summary 12/06/19 MR#: [id number] Acct: [id number] Name: YADY COOMBS Rep #: [id number] : 1950 69 From: Alonzo Rock DO PCP: Dr. Ana Lilia Sagastume DO Status:DEP ER - ER Visit Summary Date of Service: 12/06/19 Chief Complaint: Forehead laceration History of Present Illness: The patient is a 69 F who presents with a forehead laceration that occurred today. Patient states she was walking her dog when he pulled her forward. Patient states she hit her head. Patient denies any loss of consciousness. Patient denies any pain. Patient denies any paresthesias or weakness. Patient was able to ambulate immediately after the fall. Patient states her last tetanus was last week. Patient denies any visual changes. Patient denies any nausea or vomiting. Patient does admit to some mild neck pain. Physical Examination: Vital signs are stable. Patient is afebrile. Patient is in no acute distress. Pupils are equal, round, and reactive to light bilaterally. Extraocular muscles are intact. Skin is warm and dry. There is a 2 x 1 cm T-shaped laceration just above the medial aspect of the left eyebrow. There is minimal gapping of the wound margins. There is no active bleeding. There is no bony crepitance or step-off. There are no foreign bodies noted. Cranial nerves II through XII are intact. Strength is 5/5 bilateral in the upper and lower extremities. Heart was regular rate and rhythm. Lungs are clear and equal bilaterally. Neck is supple. Trachea is midline. There is no JVD. There is minimal left cervical paraspinal tenderness. There is no midline tenderness. There is no bony crepitance or step-off. There is good range of motion. Emergency Department Course and Treatment: The wound was cleaned and irrigated with copious amounts of normal saline. The wound was closed with Dermabond skin adhesive. Patient tolerated procedure well. Patient was instructed to keep the area clean. Patient was instructed to avoid Neosporin, bacitracin, or Vaseline-based ointments. Patient was instructed to follow-up with her primary care physician in 5 to 7 days for wound recheck. Patient understood and was agreeable with the plan. All questions were answered. Disposition: Discharge home Impression: Forehead laceration This note was generated with [employer] dictation software. It may contain incorrect words, spelling, and punctuation that were not noted in review of the chart prior to signing ED Disposition - Plan for ED Patient: Disposition: Home or Assisted Living Diagnosis: Forehead laceration Instructions: ED Laceration Facial Skin Glue Referrals: Ana Lilia Sagastume DO [Primary Care Provider] - 5-7 Days What to do if you have Problems For any increased pain, shortness of breath, bleeding, nausea or vomiting, chest pain, or any unexpected problems, contact your Primary Care Provider. Call [facility] ([phone]) or report to the closest Emergency Room. Call 911 if necessary. 12/06/19 2313 <Electronically signed by Alonzo Rock DO> Date ___ Alonzo Rock DO Cosigner Signature (If Indicated): Date CC: DO Ana Lilia Fajardo Start: 07-08-2016 End: 07-08-2016 12 lead ECG Comments: See Note; NOTES: [facility] Cardiovascular Services [address] [place], [place] [address] [address] 12 Lead EKG [address]53 MR#: [id number] Acct: [id number] Name: YADY COOMBS Rep #: [id number] : 1950 65 From: Narendra Duncan MD Attending Dr: Status: DEP ER Ordering Dr: Manuel Quinn MD Date: 07/05/16 Location: ED Sex: F C Admitted: Test Reason : GEN ILLNESS Blood Pressure : / mmHG Vent. Rate : 089 BPM Atrial Rate : 089 BPM P-R Int : 164 ms QRS Dur : 076 ms QT Int : 370 ms P-R-T Axes : 068 032 057 degrees QTc Int : 450 ms Normal sinus rhythm Nonspecific ST abnormality Abnormal ECG Confirmed by NARENDRA DUNCAN MD ([id number]), editorial director MARCELO ROJAS ([id number]) on 07/08/2016 12:46:05 PM Referred By: JULIÁN Confirmed By:NARENDRA DUNCAN MD 07/08/16 1246 Date ___ Narendra Duncan MD CC: Ana Lilia Sagastume DO Date Dictated: 07/05/16953 Date Transcribed: 07/05/16953 Financial Counselor: Signed Ana Lilia Sagastume Start: 07-05-2016 End: 07-05-2016 Emergency Department Summary Comments: See Note; NOTES: [facility] Medical Records Department [address] [place] [address] Emergency Department Summary MR#: [id number] Acct: [id number] Name: YADY COOMBS Rep #: [id number] : 1950 65 From: Manuel Quinn MD PCP: Ana Lilia Sagastume DO Status: DEP ER DATE OF SERVICE: 07/05/2016 CHIEF COMPLAINT: Cough, weakness. HISTORY OF PRESENT ILLNESS: This is a 65-year-old female who has had a cough for about 5 days; it has been a dry cough, nonproductive. She has not really had any fevers at home. She feels weak and tired. She went to an urgent care this morning. She was presyncopal and they noted that her blood pressure was low and her pulse ox was in the 40s; however, when she got here, her vital signs were completely normal and she feels just tired at this time. She has a history of hypertension and depression. PHYSICAL EXAMINATION: VITAL SIGNS: Reviewed and unremarkable at this time. GENERAL: Well-developed female in no distress. HEENT: Unremarkable. HEART: Regular rate and rhythm. LUNGS: Clear to auscultation. ABDOMEN: Soft and nontender. EXTREMITIES: Revealed no edema. NEUROLOGIC: Normal. EMERGENCY DEPARTMENT COURSE: The patient looks very well. EKG was normal sinus rhythm with a rate of 89. CBC normal. Electrolytes show sodium 134, potassium 3.4, glucose 134. Chest x-ray reveals atelectasis. There is no evidence of infiltrate. The patient was given normal saline for hydration. Upon reevaluation, she feels improved, but just a little bit tired. At this point ____ she was probably presyncopal at the urgent care. At this point, she will be treated for URI with an albuterol inhaler. She states she cannot take Mucinex because of the MAOI that she is taking at home that she will need to follow up with her primary care physician. DISPOSITION: Discharge. DIAGNOSES: 1. Presyncope. 2. Viral bronchitis. Manuel Quinn MD T: NTS JOB: [id number] 07/05/16 1353 <Electronically signed by Manuel Quinn MD> Date ___ Manuel Quinn MD Cosigner Signature (If Indicated): Date ___ CC: Ana Lilia Sagastume DO Date Dictated: 07/05/166 Date Transcribed: 07/05/161045 Financial Counselor: Signed Ana Lilia Sagastume Start: 07-05-2016 End: 07-05-2016 Discharge Instruction Comments: See Note; NOTES: [facility] Medical Records Department [address] [place] [address] Discharge Instruction 07/05/16 1043 MR#: [id number] Acct: [id number] Name: YADY COOMBS Rep #: [id number] : 1950 65 From: Manuel Quinn MD PCP: Ana Lilia Sagastume DO Status: REG ER ED Disposition - Plan for ED Patient: Disposition: Home or Assisted Living Chief Complaint: General Illness Diagnosis: Viral bronchitis, Pre-syncope Instructions: Acute Bronchitis Prescriptions: Albuterol Inhaler [Ventolin Hfa] 1 - 2 puff INHALATION Q4H PRN PRN #1 inhaler PRN Reason: Wheezing Referrals: Ana Lilia Sagastume, [Primary Care Provider] - What to do if you have Problems For any increased pain, shortness of breath, bleeding, nausea or vomiting, chest pain, or any unexpected problems, contact your Primary Care Provider. Call [facility] ([phone]) or report to the closest Emergency Room. Call 911 if necessary. 07/05/16 1045 <Electronically signed by Manuel Quinn MD> Date ___ Manuel Quinn MD Cosigner Signature (If Indicated): Date ___ CC: Ana Lilia Alaniz Start: 02-26-2016 End: 02-26-2016 Cerv Spine 4 or 5 Views Comments: See Note; NOTES: [facility] Imaging Services [address] [place] [address] Verdana 4d Cerv Spine 4 or 5 Views MR#: [id number] Acct: [id number] Name: YADY COOMBS Rep #: [id number] : 1950 F 65 From: Barrie Fang DO PCP: Ana Lilia Sagastume DO Status: REG CLI Study: Cerv Spine 4 or 5 Views Date of Exam: 02/26/16 Exam# [id number] Ordering Dr: Lily Hathaway STUDY: X-RAY - CERVICAL SPINE REASON FOR EXAM: Female, 65 years old. Pain TECHNIQUE: 6 view(s) of the cervical spine were obtained. COMPARISON: None ___ FINDINGS: Normal anterior atlantoaxial articulation. Normal odontoid process. Mild straightening of the cervical lordosis. Degenerative changes of the vertebral bodies with mild spurring at the endplates. Narrowed C5-6 and C6-7 disc space heights. Uncovertebral spurring slightly narrowing the C4-5 through C6-7 intervertebral neuroforamina. The soft tissue structures are unremarkable. ___ RAD/Cerv Spine 4 or 5 Views IMPRESSION: Degenerative changes of the visualized cervical spine. No acute bony injury. Electronically Signed: Barrie Fang DO at 22:02 EDT Tel [phone], Service support [phone], CC: Lily Hathaway; Ana Lilia Sagastume DO Financial Counselor: Signed Lily Hathaway Work Phone: Start: 11-07-2015 End: 11-07-2015 Dexa Bone Density Study (HP) Comments: See Note; NOTES: [facility] Imaging Services [address] [place], [place] [id number] Verdana 4d Dexa Bone Density Study () MR#: [id number] Acct: [id number] Name: YADY COOMBS Rep #: [id number] : 1950 F 64 From: Kenton Person MD PCP: Ana Lilia Sagastume DO Status: [facility] Study: Dexa Bone Density Study () Date of Exam: 11/07/15 Exam# [id number] Ordering Dr: Ana Lilia Sagastume DO STUDY: DUAL ENERGY X-RAY ABSORPTIOMETRY / DXA REASON FOR EXAM: Female, 64 years old. The patient is postmenopausal. TECHNIQUE: Bone Mineral Density (BMD) measurements of lumbar spine and bilateral hips were obtained. COMPARISON: Comparison is made with prior study dated January 03, 2004. ___ FINDINGS: Lumbar Spine (L1-L4): g/cm2 (1.233) / T-score (0.4) / Z-score (2.0) Findings are suggestive of normal bone density with a low fracture risk. Left Femur Total: g/cm2 (0.835) / T-score (-1.4) / Z-score (-0.2) Left Femoral Neck: g/cm2 (0.805) / T-score (-1.7) / Z-score (-0.2) Right Femur Total: g/cm2 (0.801) / T-score (-1.6) / Z-score (-0.5) Right Femoral Neck: g/cm2 (0.789) / T-score (-1.8) / Z-score (-0.3) The T-Scores on the most recent prior examination were: Lumbar Spine (L1-L4): There has been improvement of bone density since the previous examination. Left Femur Total: which represents a worsening of 6.1%. ___ IMPRESSION: The patient is considered osteopenic at the level of the femoral neck as outlined below according to World [employer] Organization (WHO) criteria with a moderate fracture risk. There has been worsening of bone density since the previous examination. ___ Reference Information: The T-score is the number of standard deviations above or below the standard which is normal for young adults at their peak bone mineral density. The World Health Organization (WHO) interprets the T-scores as follows: Above -1 Normal bone density Between -1 and -2.5 Osteopenia Equal to / or below -2.5 Osteoporosis As a practical clinical guideline, osteopenia may be graded as follows: Mild -1 through -1.5 Moderate -1.6 through -2.0 Severe -2.1 through -2.4 The Z-score is the number of standard deviations above or below age-matched controls. A Z-score of less than -1.5 would be considered abnormal. References: 1. NIH Osteoporosis and Related Bone Diseases http://www.osteo.org 2. International Society for Clinical Densitometry http://www.iscd.org 3. National Osteoporosis Foundation http://www.nof.org Electronically Signed: Kenton Person MD at 11:21 EDT Tel [phone], Service support [phone], CC: Ana Lilia Sagastume DO Financial Counselor: Signed Ana Lilia Sagastume Work Phone: Start: 10-18-2015 End: 10-18-2015 Ecg routine ecg w/least 12 lds w/i&r [MEASUREMENTS ANALYSIS] Date of Test: 10/18/2015 11:32:09; Heart Rate: 76; CA Interval: 160; QRS: 84; QT Interval: 406; Corrected QT Interval (QTc): 434; P Wave Stirum: 50; QRS Wave Stirum: 13; T Wave Stirum: 22; Blood Pressure: 160/80 [ECG DIAGNOSTIC STATEMENTS] Date of Test: 10/18/2015 11:32:09; Summary: Sinus Rhythm WITHIN NORMAL LIMITS Ana Lilia Keith Work Phone: Comment on above: nsr no acute chg Start: 11-30-2014 Fiona Andrade MD Work Phone: Extraction of cataract Kayela Henderson SEW OUT OPERATOR Extraction of cataract Kayela Traci SEW OUT OPERATOR Extraction of cataract Te Jose Manuel PHLEBOTOMY SUPERVISOR Fracture Naima L Long Comment on above: lt wrist 4/16 Fracture Gisel Negrete Comment on above: lt wrist 4/16 Fracture Azucena [place] Comment on above: lt wrist 4/16 Fracture Gisel Messenger Comment on above: lt wrist 4/16 Fracture Kaitlin Gravius Comment on above: lt wrist 4/16 Fracture Kaitlin Gravius Comment on above: lt wrist 4/16 Fracture Kaitlin Gravius Comment on above: lt wrist 4/16 Fracture Kaitlin Gravius Comment on above: lt wrist 4/16 Fracture Sharon Marcelino Comment on above: lt wrist 4/16 Fracture Kaitlin Gravius Comment on above: lt wrist 4/16 Fracture Sharon Chari Comment on above: lt wrist 4/16 Kaitlin Gravius SEW OUT OPERATOR Bruno Ferris LP N Kayela Henderson SEW OUT OPERATOR Kayela Henderson SEW OUT OPERATOR Kayela Traci SEW OUT OPERATOR Kayela Henderson SEW OUT OPERATOR Te Richard LP N Plan of Treatment Date Care Activity Detail Author Start: 07-11-2023 BP CONTROLLED (<130/80) BP CONTROLLED (<130/80) [facility] Start: 02-19-2023 Procedure Education [facility]; [facility] Work Phone: Start: 02-09-2023 Procedure Education [facility]; [facility] Work Phone: Start: 02-09-2023 Provider Instructions for Treatment [facility]; [facility] Work Phone: Start: 02-09-2023 Cyanocobalamin vitamin b-12 [facility]; [facility] Work Phone: Start: 02-09-2023 Assay of thyroid stimulating hormone tsh [facility]; [facility] Work Phone: Start: 02-09-2023 25 hydroxy includes fractions if performed [facility]; [facility] Work Phone: Start: 02-09-2023 Urine albumin quantitative [facility]; [facility] Work Phone: Start: 02-09-2023 Comprehensive metabolic panel [facility]; [facility] Work Phone: Start: 02-09-2023 Lipid panel [facility]; [facility] Work Phone: Start: 02-09-2023 Blood count complete auto&auto difrntl wbc [facility]; [facility] Work Phone: Start: 09-24-2022 Cyanocobalamin vitamin b-12 [facility]; [facility] Work Phone: Start: 09-24-2022 Procedure Education [facility]; [facility] Work Phone: Start: 09-24-2022 Provider Instructions for Treatment [facility]; [facility] Work Phone: Start: 09-08-2022 Lipid panel [facility]; [facility] Work Phone: Start: 09-08-2022 25 hydroxy includes fractions if performed [facility]; [facility] Work Phone: Start: 09-08-2022 Cyanocobalamin vitamin b-12 [facility]; [facility] Work Phone: Start: 09-08-2022 Assay of thyroid stimulating hormone tsh [facility]; [facility] Work Phone: Start: 09-08-2022 Sedimentation rate rbc non-automated [facility]; [facility] Work Phone: Start: 09-08-2022 Rheumatoid factor quantitative [facility]; [facility] Work Phone: Start: 09-08-2022 Comprehensive metabolic panel [facility]; [facility] Work Phone: Start: 09-08-2022 C-reactive protein [facility]; [facility] Work Phone: Start: 09-08-2022 Blood count complete automated [facility]; [facility] Work Phone: Start: 09-08-2022 Potassium serum plasma/whole blood [facility]; [facility] Work Phone: Start: 09-08-2022 Hemoglobin glycosylated a1c [facility]; [facility] Work Phone: Start: 09-08-2022 Procedure Education [facility]; [facility] Work Phone: Start: 09-08-2022 Provider Instructions for Treatment [facility]; [facility] Work Phone: Start: 07-21-2022 Patient discharge [facility] Start: 07-20-2022 Ambulation without limitation [facility] Start: 07-20-2022 Assessment of risk of venous thromboembolism [facility] Start: 07-20-2022 Catheterization of vein [facility] Start: 07-20-2022 Incentive spirometry [facility] Start: 07-20-2022 Insertion of catheter into peripheral vein [facility] Start: 07-20-2022 Measuring intake and output [facility] Start: 07-20-2022 Oxygen therapy [facility] Start: 07-20-2022 Providing care according to standard [facility] Start: 07-20-2022 Referral to cath lab nurse [facility] Start: 07-20-2022 Referral to service [facility] Start: 07-20-2022 [facility] Start: 07-20-2022 Following clinical pathway protocol [facility] Start: 07-20-2022 Verification routine [facility] Start: 07-20-2022 Admission procedure [facility] Start: 07-20-2022 [facility] Start: 07-20-2022 Inhalation therapy procedure [facility] Start: 06-16-2022 Patient referral [facility] Work Phone: Start: 06-04-2022 Procedure Education [facility]; [facility] Work Phone: Start: 06-04-2022 Provider Instructions for Treatment [facility]; [facility] Work Phone: Start: 05-25-2022 ADVANCE DIRECTIVE DISCUSSION ADVANCE DIRECTIVE DISCUSSION [facility] Start: 05-12-2022 Hemoglobin glycosylated a1c [facility]; [facility] Work Phone: Start: 05-12-2022 Assay of magnesium [facility]; [facility] Work Phone: Start: 05-12-2022 Potassium serum plasma/whole blood [facility]; [facility] Work Phone: Start: 05-12-2022 Procedure Education [facility]; [facility] Work Phone: Start: 05-12-2022 Provider Instructions for Treatment [facility]; [facility] Work Phone: Start: 05-04-2022 Blood chemistry [facility] Work Phone: Start: 05-03-2022 Patient discharge [facility] Start: 05-03-2022 End: 05-03-2022 Care planning and problem solving actions [facility] Start: 05-03-2022 Following clinical pathway protocol [facility] Start: 05-03-2022 Assessment of risk of venous thromboembolism [facility] Start: 05-03-2022 Insertion of catheter into peripheral vein [facility] Start: 05-03-2022 Measuring intake and output [facility] Start: 05-03-2022 Oxygen therapy [facility] Start: 05-03-2022 Providing care according to standard [facility] Start: 05-03-2022 Provision of activity privileges [facility] Start: 05-03-2022 [facility] Start: 05-03-2022 Verification routine [facility] Work Phone: Start: 05-03-2022 Admission procedure [facility] Start: 05-03-2022 Blood chemistry [facility] Work Phone: Start: 05-03-2022 End: 05-03-2022 [facility] Work Phone: Start: 03-13-2022 Procedure Education [facility]; [facility] Work Phone: Start: 03-13-2022 Provider Instructions for Treatment [facility]; [facility] Work Phone: Start: 03-13-2022 Assay of magnesium [facility]; [facility] Work Phone: Start: 03-13-2022 Potassium serum plasma/whole blood [facility]; [facility] Work Phone: Start: 03-13-2022 Urnls dip stick/tablet reagent auto microscopy [facility]; [facility] Work Phone: Start: 03-13-2022 Assay of thyroid stimulating hormone tsh [facility]; [facility] Work Phone: Start: 01-23-2022 Influenza vaccination INFLUENZA (#1) [facility] Start: 05-20-2021 Procedure Education [facility]; [facility] Work Phone: Start: 05-02-2021 Procedure Education [facility]; [facility] Work Phone: Start: 05-02-2021 Provider Instructions for Treatment [facility]; [facility] Work Phone: Start: 04-24-2021 Procedure Education [facility]; [facility] Work Phone: Start: 04-24-2021 Provider Instructions for Treatment [facility]; [facility] Work Phone: Start: 10-27-2020 COVID-19 VACCINE (3 - Booster for Pfizer series) COVID-19 VACCINE (3 - Booster for Pfizer series) [facility] Start: 07-23-2020 Assay of thyroid stimulating hormone tsh [facility]; [facility] Work Phone: Start: 07-23-2020 TSH Qn TSH (88951) [facility]; [facility] Work Phone: Start: 07-23-2020 Assay of free thyroxine [facility]; [facility] Work Phone: Start: 07-23-2020 Free T4 [Mass/Vol] T4, FREE (THYROXINE) (16431) [facility]; [facility] Work Phone: Start: 07-23-2020 Assay of triiodothyronine t3 free [facility]; [facility] Work Phone: Start: 07-23-2020 Free T3 [Mass/Vol] T3, FREE (TRIDOTHYRONINE) (08921) [facility]; [facility] Work Phone: Start: 07-23-2020 Procedure Education [facility]; [facility] Work Phone: Start: 06-28-2020 Procedure Education [facility]; [facility] Work Phone: Start: 06-28-2020 Provider Instructions for Treatment [facility]; [facility] Work Phone: Start: 06-12-2020 Procedure Education [facility]; [facility] Work Phone: Start: 06-12-2020 Provider Instructions for Treatment [facility]; [facility] Work Phone: Start: 05-10-2020 Procedure Education [facility]; [facility] Work Phone: Start: 05-10-2020 Provider Instructions for Treatment [facility]; [facility] Work Phone: Start: 05-10-2020 Assay of thyroid stimulating hormone tsh [facility]; [facility] Work Phone: Start: 05-10-2020 Free T4 [Mass/Vol] T4, FREE (THYROXINE) (57397) [facility]; [facility] Work Phone: Comment on above: do at end of jun 2020 Start: 05-10-2020 Free T3 [Mass/Vol] T3, FREE (TRIDOTHYRONINE) (55794) [facility]; [facility] Work Phone: Comment on above: do at end of jun 2020 Start: 05-10-2020 25 hydroxy includes fractions if performed [facility]; [facility] Work Phone: Start: 05-10-2020 Urnls dip stick/tablet reagent auto microscopy [facility]; [facility] Work Phone: Start: 05-10-2020 Urine albumin quantitative [facility]; [facility] Work Phone: Start: 05-10-2020 Comprehensive metabolic panel [facility]; [facility] Work Phone: Start: 05-10-2020 Lipid panel [facility]; [facility] Work Phone: Start: 05-10-2020 Blood count complete auto&auto difrntl wbc [facility]; [facility] Work Phone: Start: 05-10-2020 TSH Qn TSH (42370) [facility]; [facility] Work Phone: Comment on above: do at end of jun 2020 Start: 04-12-2020 Procedure Education [facility] Work Phone: Start: 01-05-2020 Provider Instructions for Treatment [facility] Work Phone: Start: 12-15-2019 Procedure Education [facility] Work Phone: Start: 12-15-2019 Provider Instructions for Treatment [facility] Work Phone: Start: 12-05-2019 Assay of thyroid stimulating hormone tsh [facility]; [facility] Work Phone: Start: 12-05-2019 TSH Qn TSH (THYROID STIMULATING HORMONE) (88905) [facility] Work Phone: Start: 12-01-2019 Procedure Education [facility] Work Phone: Start: 12-01-2019 Provider Instructions for Treatment [facility] Work Phone: Start: 11-07-2019 Procedure Education [facility] Work Phone: Start: 11-07-2019 Provider Instructions for Treatment [facility] Work Phone: Start: 11-07-2019 25 hydroxy includes fractions if performed CALCIFIDIOL (47743) VIT D 25 [facility] Work Phone: Start: 11-07-2019 TSH Qn TSH (03482) [facility] Work Phone: Start: 11-03-2019 Urinalysis qual/semiquant except immunoassays [facility] Work Phone: Start: 11-01-2019 Procedure Education [facility] Work Phone: Start: 04-07-2019 Provider Instructions for Treatment [facility] Work Phone: Start: 02-03-2019 Procedure Education [facility] Work Phone: Start: 02-03-2019 Provider Instructions for Treatment [facility] Work Phone: Start: 12-30-2018 Provider Instructions for Treatment [facility] Work Phone: Start: 12-02-2018 25 hydroxy includes fractions if performed CALCIFEDIOL (02208) [facility] Work Phone: Start: 12-02-2018 TSH Qn TSH (46815) [facility] Work Phone: Start: 12-02-2018 Free T4 [Mass/Vol] T4, FREE (THYROXINE) (00628) [facility] Work Phone: Start: 12-02-2018 Free T3 [Mass/Vol] T3, FREE (TRIDOTHYRONINE) (72666) [facility] Work Phone: Start: 12-02-2018 Blood count manual cell count each CBC WITH MANUAL DIFF (82209) [facility] Work Phone: Start: 12-02-2018 Comprehensive metabolic panel Metabolic Panel, Comprehensive (48062) [facility] Work Phone: Start: 12-02-2018 Urine albumin quantitative MICROALBUMIN: CREATININE RATIO (19191) AND (46632) [facility] Work Phone: Start: 12-02-2018 Urinalysis qual/semiquant except immunoassays URINALYSIS (33997) [facility] Work Phone: Start: 12-02-2018 Lipoprotein blood mack numbers & subclasses NMR Profile (12788) [facility] Work Phone: Start: 12-15-2016 Procedure Education [facility] Work Phone: Start: 12-15-2016 Provider Instructions for Treatment [facility] Work Phone: Start: 11-24-2016 Urine albumin quantitative [facility] Work Phone: Start: 11-24-2016 Urinalysis qual/semiquant except immunoassays [facility] Work Phone: Start: 11-24-2016 Blood count manual cell count each [facility] Work Phone: Start: 11-24-2016 Lipid panel [facility] Work Phone: Start: 11-24-2016 25 hydroxy includes fractions if performed [facility] Work Phone: Start: 11-24-2016 Comprehensive metabolic panel [facility] Work Phone: Start: 02-26-2016 Provider Instructions for Treatment [facility] Work Phone: Start: 12-20-2015 Procedure Education [facility] Work Phone: Start: 12-20-2015 Provider Instructions for Treatment [facility] Work Phone: Start: 12-20-2015 Blood occult fecal hgb deter ia qual feces 1-3 [facility] Work Phone: Start: 12-01-2015 Colonoscopy COLONOSCOPY [facility] Start: 12-01-2015 COLORECTAL CANCER SCREENING COLORECTAL CANCER SCREENING [facility] Start: 11-09-2015 BONE DENSITY BONE DENSITY [facility] Start: 11-09-2015 PNEUMOCOCCAL: 65+ (1 - PCV) PNEUMOCOCCAL: 65+ (1 - PCV) [facility] Start: 10-18-2015 Procedure Education [facility] Work Phone: Start: 10-18-2015 Provider Instructions for Treatment [facility] Work Phone: Start: 04-18-2015 Patient Education [facility] Work Phone: Start: 04-18-2015 Procedure Education [facility] Work Phone: Start: 04-18-2015 Provider Instructions for Treatment [facility] Work Phone: Start: 04-18-2015 25 hydroxy includes fractions if performed [facility] Work Phone: Start: 04-18-2015 Urnls dip stick/tablet reagent auto microscopy [facility] Work Phone: Start: 04-18-2015 Urine albumin quantitative [facility] Work Phone: Start: 04-18-2015 Comprehensive metabolic panel [facility] Work Phone: Start: 04-18-2015 Lipid panel [facility] Work Phone: Start: 04-18-2015 Blood count complete auto&auto difrntl wbc [facility] Work Phone: Start: 04-18-2015 Assay of thyroid stimulating hormone tsh [facility]; [facility] Work Phone: Start: 04-18-2015 TSH Qn TSH (87350) [facility] Work Phone: Start: 10-11-2014 Patient Education [facility] Work Phone: Start: 10-11-2014 Procedure Education [facility] Work Phone: Start: 10-11-2014 Provider Instructions for Treatment [facility] Work Phone: Start: 10-11-2014 25 hydroxy includes fractions if performed [facility] Work Phone: Start: 04-19-2014 Assay of thyroid stimulating hormone tsh [facility]; [facility] Work Phone: Start: 04-19-2014 TSH Qn TSH (97954) [facility] Work Phone: Start: 04-19-2014 Urnls dip stick/tablet reagent auto microscopy [facility] Work Phone: Start: 04-19-2014 Blood count manual cell count each [facility] Work Phone: Start: 04-19-2014 Comprehensive metabolic panel [facility] Work Phone: Start: 04-19-2014 Lipid panel [facility] Work Phone: Start: 04-19-2014 Urine albumin quantitative [facility] Work Phone: Start: 04-19-2014 Provider Instructions for Treatment [facility] Work Phone: Start: 10-06-2013 Assay of magnesium [facility]; [facility] Work Phone: Start: 10-06-2013 Magnesium [Mass/Vol] Magnesium (11636) [facility] Work Phone: Comment on above: recheck in 6 weeks Start: 10-06-2013 Basic metabolic panel calcium total [facility] Work Phone: Comment on above: recheck in 6 weeks Start: 10-04-2013 Provider Instructions for Treatment [facility] Work Phone: Start: 09-30-2013 Assay of magnesium [facility] Work Phone: Start: 09-30-2013 Magnesium [Mass/Vol] MAGNESIUM (35715) [facility] Work Phone: Start: 09-30-2013 Potassium [Moles/Vol] POTASSIUM SERUM (41659) [facility] Work Phone: Start: 09-30-2013 Potassium serum plasma/whole blood [facility]; [facility] Work Phone: Start: 06-30-2013 Provider Instructions for Treatment [facility] Work Phone: Start: 06-15-2013 Provider Instructions for Treatment [facility] Work Phone: Start: 05-30-2013 Provider Instructions for Treatment [facility] Work Phone: Start: 03-09-2013 Patient Education [facility] Work Phone: Start: 03-09-2013 Provider Instructions for Treatment [facility] Work Phone: Start: 09-10-2012 Patient Education [facility] Work Phone: Start: 09-10-2012 Provider Instructions for Treatment [facility] Work Phone: Start: 08-30-2012 Urine albumin quantitative [facility] Work Phone: Start: 08-30-2012 Urinalysis qual/semiquant except immunoassays [facility] Work Phone: Start: 08-30-2012 Blood count manual cell count each [facility] Work Phone: Start: 08-30-2012 Comprehensive metabolic panel [facility] Work Phone: Start: 08-30-2012 Lipid panel [facility] Work Phone: Start: 08-30-2012 Assay of thyroid stimulating hormone tsh [facility]; [facility] Work Phone: Start: 08-30-2012 TSH Qn TSH (92058) [facility] Work Phone: Start: 09-18-2011 Provider Instructions for Treatment [facility] Work Phone: Start: 07-18-2011 TSH Qn TSH (25591) [facility] Work Phone: Start: 03-17-2011 Provider Instructions for Treatment [facility] Work Phone: Start: 01-09-2011 Urnls dip stick/tablet reagent auto microscopy URINALYSIS, W/ MICRO (49601) [facility] Work Phone: Start: 11-18-2010 Urnls dip stick/tablet reagent auto microscopy [facility] Work Phone: Start: 11-18-2010 Blood count manual cell count each CBC WITH MANUAL DIFF (50857) [facility] Work Phone: Start: 09-18-2010 Provider Instructions for Treatment [facility] Work Phone: Start: 09-09-2010 Assay of thyroid stimulating hormone tsh [facility]; [facility] Work Phone: Start: 09-09-2010 TSH Qn TSH (59542) [facility] Work Phone: Start: 03-11-2010 Provider Instructions for Treatment [facility] Work Phone: Start: 09-12-2009 Provider Instructions for Treatment [facility] Work Phone: Start: 08-22-2009 Provider Instructions for Treatment [facility] Work Phone: Start: 08-08-2009 Provider Instructions for Treatment [facility] Work Phone: Start: 07-25-2009 Provider Instructions for Treatment [facility] Work Phone: Start: 08-31-2008 Provider Instructions for Treatment [facility] Work Phone: Start: 07-27-2008 Provider Instructions for Treatment [facility] Work Phone: Start: 07-19-2008 Provider Instructions for Treatment [facility] Work Phone: Start: 05-24-2008 Provider Instructions for Treatment [facility] Work Phone: Start: 05-24-2008 Microsomal antibodies each [facility] Work Phone: Start: 05-24-2008 Assay of thyroid stimulating hormone tsh [facility]; [facility] Work Phone: Start: 05-24-2008 TSH Qn TSH (64260) [facility] Work Phone: Start: 05-24-2008 Assay of free thyroxine [facility]; [facility] Work Phone: Start: 05-24-2008 Free T4 [Mass/Vol] T4, FREE (THYROXINE) (11623) [facility] Work Phone: Start: 05-24-2008 Assay of triiodothyronine t3 free [facility]; [facility] Work Phone: Start: 05-24-2008 Free T3 [Mass/Vol] T3, FREE (TRIDOTHYRONINE) (14463) [facility] Work Phone: Comment on above: do in 6-8 weeks Start: 03-16-2008 Blood occult fecal hgb deter ia qual feces 1-3 [facility] Work Phone: Start: 03-16-2008 Assay of thyroid stimulating hormone tsh [facility]; [facility] Work Phone: Start: 03-16-2008 TSH Qn TSH (61266) [facility] Work Phone: Comment on above: do in 6 weeks Start: 03-10-2007 Provider Instructions for Treatment [facility] Work Phone: Start: 02-17-2007 Lipid panel [facility] Work Phone: Start: 02-17-2007 Assay of thyroid stimulating hormone tsh [facility]; [facility] Work Phone: Start: 02-17-2007 TSH Qn TSH (59646) [facility] Work Phone: Start: 02-17-2007 Assay of thyroxine total [facility] Work Phone: Start: 02-17-2007 Thyroid horm uptk/thyroid hormone binding ratio [facility] Work Phone: Start: 2000 SHINGRIX VACCINE (1 of 2) SHINGRIX VACCINE (1 of 2) [facility] Start: 11-09-1995 COLOGUARD (FIT-DNA) COLOGUARD (FIT-DNA) [facility] Start: 11-09-[address] COLONOGRAPHY [facility] Start: 11-09-1995 DIABETES SCREEN DIABETES SCREEN [facility] Start: 11-09-1995 FECAL OCCULT BLOOD FECAL OCCULT BLOOD [facility] Start: 11-09-1995 LIPID SCREEN LIPID SCREEN [facility] Start: 11-09-1995 SIGMOIDOSCOPY SIGMOIDOSCOPY [facility] Start: 1990 Mammography MAMMOGRAM [facility] Start: 1969 Urine microalbumin profile DTAP,TDAP,TD (1 - Tdap) [facility] Start: 1968 ANNUAL PCP TEAM CHRONIC DISEASE VISIT ANNUAL PCP TEAM CHRONIC DISEASE VISIT [facility] Start: 1968 HEPATITIS C SCREENING HEPATITIS C SCREENING [facility] Patient Education ED AFIB ED Hypokalemia [facility] Work Phone: Patient referral [facility] Work Phone: [facility] Work Phone: [facility] Work Phone[facility] Work Phone[facility] Work Phone[facility] Work Phone[facility] Work Phone: [facility] Work Phone: [facility] Work Phone: [facility] Work Phone: [facility] Work Phone: [facility] Work Phone: [facility] Work Phone: [facility] Work Phone: [facility] Work Phone: [facility] Work Phone: [facility] Work Phone: [facility] Work Phone: [facility] Work Phone[facility] Work Phone[facility] Work Phone: [facility] Work Phone: [facility] Work Phone: [facility] Work Phone: [facility] Work Phone: [facility] Work Phone: [facility] Work Phone: [facility] Work Phone: [facility] Work Phone[facility] Work Phone[facility] Work Phone: [facility] Work Phone: [facility] Work Phone: [facility] Work Phone: [facility] Work Phone: [facility] Work Phone: [facility] Work Phone: [facility] Work Phone: [facility] Work Phone: [facility] Work Phone: [facility] Work Phone: [facility]; [facility] Work Phone: [facility]; [facility] Work Phone: [facility]; [facility] Work Phone: [facility]; [facility] Work Phone: Immunizations Immunization Date Immunization Notes Care Provider [facility] 02-22-2022 influenza, high dose seasonal, preservative-free Dr. Ana Lilia Sagastume Work Phone: [facility] 09-01-2020 Covid (Pfizer) Dr. Ana Lilia Sagastume Work Phone: [facility] 08-09-2020 Covid (Pfizer) Dr. Ana Lilia Sagastume Work Phone: [facility] 01-31-2020 influenza, injectable, quadrivalent, preservative free Mikel Andrade MD Work Phone: [facility] Work Phone: 03-22-2015 influenza, seasonal, injectable, preservative free Mikel Andrade MD Work Phone: [facility] Work Phone: 11-01-2012 varicella zoster immune globulin; Translations: [ZOSTAVAX, [id number]/0.65ML (Subcutaneous Solution Reconstituted)] Ana Lilia Sagastume [facility] Work Phone: 05-08-2009 novel [id number], preservative-free, injectable Mikel Andrade MD Work Phone: [facility] Work Phone: 03-13-2009 influenza virus vaccine, unspecified formulation Mikel Andrade MD Work Phone: [facility] Work Phone: 03-16-2008 influenza, seasonal, injectable Ana Liliamauricio Antonioon [facility] Work Phone: Comment on above: 0.5cc given im lt ar m lot [id number] exp 10-3103-10-2007 influenza, seasonal, injectable Ana Liliamauricio Antonioon [facility] Work Phone: Comment on above: Lot #:Expiration rosas e:Amount given:Route: IMSite given:left deltoid Given by: kaci conley Lot # [id number] exp 11-22-07 03-24-2006 influenza, seasonal, injectable Ana Liliamauricio Antonioon [facility] Work Phone: Payers Date Payer Category Payer Self-pay [id number] 2021 Medicare [employer] MEDICARE A ETNA MEDICARE PPO [id number] 2021-Present [phone] [address] [place] [address] PPO [id number] 2021 Private Health Insurance [facility] [id number] 2016 Unknown [id number] 2014 Unknown [id number] 2008 Private Health Insurance [id number] 2005 Unknown [id number] 2002 Unknown [id number] 1950 Unknown [id number] 16 Medicare [id number] Private Health Insurance [id number] [id number] Unknown Unknown [id number] 62 Unknown [id number] 62 Unknown [id number] 62 Unknown [id number] 62 Unknown [id number] 62 Unknown [id number] 62 Unknown [id number] 62 Unknown [id number] 62 Unknown [id number] 62 Unknown [id number] 62 Unknown [id number] 62 Social History Date Type Detail Facility Caffeine Use Caffeine Use [facility] Work Phone: Tobacco use: Tobacco use: [facility] Work Phone: Comment on above: 09/18/11 Never smoker. [facility]; [facility] Work Phone: Start: 05-28-2021 End: 08-01-2022 Tobacco smoking status KYIS Unknown if ever smoked [facility] Start: 06-08-2020 Non-smoker [facility] Start: 1950 Sex Assigned At Female W [facility] Start: 07-11-2022 Tobacco smoking status NHIS Never smoked tobacco [facility] Work Phone: History of tobacco use Passive smoker [facility] Work Phone: Start: 07-11-2022 Tobacco use and exposure Smokeless tobacco non-user [facility] Work Phone: Start: 07-11-2022 Alcohol intake 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 (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) [facility] Start: 1950 Sex Assigned At Not on file [facility] Goals Date Patient Goal Desired Activity /State Functional Status Date Assessment Result Facility 07-21-2022 Functional status Ambulates;Up ad bridgett [facility] Work Phone: 07-20-2022 Functional status None [facility] Work Phone: 05-03-2022 Functional status Activity Abili ty Independent [facility] Work Phone: 05-03-2022 Functional status Bathroom Privilege [facility] Work Phone: 11-03-2019 LP-IR Score 25 [facility] Work Phone: Comment on above: INSULIN RESISTANCE MARKER <--Insulin Sen sitive Insulin Resistant--> Percentile in Reference PopulationInsulin Resistance ScoreLP-IR Score Low 25th 50th 75th High <27 27 45 63 >63LP-IR Score is inaccurate if patient is non-fasting. .The LP-IR score is a laboratory developed index that has beenassociated with insulin resistance and diabetes risk and should beused as one component of a physician's clinical assessment. Test(s) 244082-GIK-D ; 546903-UBI-J; 004748-ETK-C; 979908-Aegkbzdtakbxy; 645741-Hqnfekvecfn, Total; 328704-BKO-H (Total);474377-Osrno LDL-P; 885675-MHE Size; 838610-TI-ZS Scorewas developed and its performance characteristics determinedby [employer]. It has not been cleared or approved by the Foodand Drug Administration.PATIENT WAS FASTINGPERFORMED BY: [facility] [place] [address] [id number] BY: [facility] [id number] 12-30-2018 LP-IR Score 32 [facility] Work Phone: Comment on above: INSULIN RESISTANCE MARKER <--Insulin Sen sitive Insulin Resistant--> Percentile in Reference PopulationInsulin Resistance ScoreLP-IR Score Low 25th 50th 75th High <27 27 45 63 >63LP-IR Score is inaccurate if patient is non-fasting. .The LP-IR score is a laboratory developed index that has beenassociated with insulin resistance and diabetes risk and should beused as one component of a physician's clinical assessment. TheLP-IR score listed above has not been cleared by the [place] Food andDrug Administration. PATIENT WAS FASTINGP ERFORMED BY: [employer] [id number] BY: [facility] [id number] Mental Status Date Assessment Result Facility 07-21-2022 Cognitive function Voice/Name [facility] Work Phone: 02-26-2023 Cognitive function Level Of Cons ciousness Awake;Alert;Appropriate;Follow s Commands [facility] Work Phone: 05-03-2022 Cognitive function Voice/Name [facility] Work Phone: 05-03-2022 Cognitive function Voice/Name [facility] Work Phone: 03-11-2022 Cognitive function Level Of Cons ciousness Awake;Alert;Appropriate;Follow s Commands [facility] Work Phone: Clinical Notes 11-22-2014 to 07-20-2022 Note Date & Type Note Facility 07-20-2022 Discharge summary Note Date/Time July 20, 2022 10:55am [facility] Medical Records Department [address] [place] [address] Emergency Department Summary 07/20/22 MR#: [id number] Acct: [id number] Name: YADY COOMBS Rep #:[id number] : 1950 71 From: Dung Stoll PCP: Dr. Ana Lilia Sagastume, DO Status:AD M DION Location: [address] History of Present Illness Chief Complaint: Palpitations Informant: patient Narrative Narrative: Sudden palpitations when she went into anabaptism less than 1 hour prior to arrival. Mild lightheaded symptoms. No chest pains. No recent vomiting. She had mild loose stools yesterday that resolved. Tolerating oral fluids. Atrial fibrillation diagnosed this past February. She is on metoprolol 100 mg extended release. She took her morning dose prior to going to anabaptism. She is on Eliquistwice a day last dose this morning. 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 She is followed by Dr. Valle. She is referred to EP at [facility] and seen little over a week ago. Discussion of ablation again versus antiarrhythmics. She is thinking about this. She had recurrent A-fib this pastDecember was admitted on a Cardizem drip and cardioverted on this. No history of electric cardioversions in the past. Reports lingering occasional cough. Nofevers. Patient Prior similar symptoms: Yes PFSH PFSH Medical History Abnormal mammogram of left breast Cataract Chest pain Chronic anticoagulation COVID-19 (04/23/21) Depression Essential hypertension Family history of LA (myocardial infarction) History of Qcnhp-Etislgitf-Oobpy (WPW) syndrome Hypothyroidism Over 65 years old Paroxysmal atrial fibrillation with RVR SVT (supraventricular tachycardia) WPW (Ogsaj-Wjizzwuda-Hnaxe syndrome) Home Medications chlorthalidone 25 mg tablet 25 mg PO DAILY blood pressure 12/06/19 [History Last Taken Unknown] duloxetine 60 mg capsule,delayed release 60 mg PO DAILY DEPRESSION 12/06/19 [History Last Taken 07/20/22] alendronate 70 mg tablet 70 mg PO SA OSTEOPEROSIS 05/28/21 [History Last Taken 07/19/22] levothyroxine 112 mcg tablet (Synthroid) 112 mcg PO DAILY THYROID 12/13/21 [History Last Taken 07/20/22] apixaban 5 mg tablet (Eliquis) 5 mg PO BID AFIB 05/03/22 [History Last Taken 07/20/22] metoprolol succinate 100 mg tablet,extended release 24 hr 100 mg PO DAILY BLOOD PRESSURE 05/03/22 [History Last Taken 07/20/22] potassium chloride 20 mEq tablet,extended release 1 ea PO BID SUPPLEMENT 06/16/22 [History Last Taken 07/20/22] albuterol sulfate 90 mcg/actuation aerosol inhaler 2 inh inhalation 4X/DAY COUGH07/20/22 [History Last Taken 07/20/22] beclomethasone dipropionate 80 mcg/actuation HFA breath activated aerosol (Qvar RediHaler) 2 inh inhalation BID COUGH 07/20/22 [History Last Taken 07/20/22] calcium carbonate 500 mg-vitamin D3 10 mcg (400 unit) tablet (Calcium 500 + D) 1tab PO QHS SUPPLEMENT 07/20/22 [History Last Taken 07/04/22] Allergy/AdvReac Type Severity Reaction Status Date / Time No Known Allergies Allergy Verified 07/20/22 10:00 anesthesia AdvReac Nausea & Uncoded 07/20/22 10:00 Vomiting Family History Other Diabetes Heart disease Hypertension Myocardial infarction Surgical History History of bilateral cataract extraction (~02/2022) History of cardiac radiofrequency ablation History of left heart catheterization (LHC) (~08/28/20) History of radiofrequency ablation procedure for cardiac arrhythmia (~2002) History of surgery on left wrist Social History Smoking Status: Never smoker alcohol intake: never substance use type: does not use caffeine: Yes Type: tea Number of servings: 6 ROS ROS ED Constitutional Constitutional ED: Denies chills, fever(s) or sweats Eyes Eyes: Denies change in vision ENT ENT ED: Denies dysphagia or sore throat Cardiovascular Cardiovascular: Reports palpitations; Denies chest pain, leg edema or racing heartbeat Respiratory/Chest Respiratory/Chest: Denies cough, dyspnea or dyspnea on exertion Gastrointestinal Gastrointestinal: Reports diarrhea; Denies abdominal pain, nausea or vomiting Genitourinary Genitourinary ED: Denies dysuria, hematuria or urinary frequency Musculoskeletal Musculoskeletal: Denies back pain, extremity pain or neck pain Integumentary Denies rash or wounds Neurologic Neurologic: Denies headache(s), paresthesias or weakness EXAM Physical Exam Const Vital Signs: 07/20/22 09:58 07/20/22 10:05 07/20/22 10:16 Temperature 97.1 F L Temperature Source Temporal Pulse Rate 77 153 H Respiratory Rate 24 H 17 Respiratory Effort Normal Short of Breath Labored Respiratory Pattern Normal Blood Pressure 174/148 H 122/105 H Blood Pressure Mean 156 110 Pulse Ox 97 94 Oxygen Delivery Method Room Air Room Air Oxygen Flow Rate (L/min) 07/20/22 10:28 07/20/22 10:33 07/20/22 10:41 Temperature Temperature Source Pulse Rate 156 H 117 H 166 H Respiratory Rate 20 H 11 L 16 Respiratory Effort Respiratory Pattern Blood Pressure 166/77 H 118/69 118/69 Blood Pressure Mean 106 85 85 Pulse Ox 97 95 97 Oxygen Delivery Method Nasal Cannula Nasal Cannula Nasal Cannula Oxygen Flow Rate (L/min) 2 2 2 07/20/22 11:01 Temperature Temperature Source Pulse Rate 111 H Respiratory Rate 16 Respiratory Effort Respiratory Pattern Blood Pressure 111/62 Blood Pressure Mean 78 Pulse Ox Oxygen Delivery Method Oxygen Flow Rate (L/min) Positive well nourished and well developed General Appearance ED: well developed and NAD HEENT Reports moist mucous membranes normocephalic and atraumatic Eyes PERRL, EOMs intact bilaterally and conjunctivae normal General Eye ED: Yes normal appearance of both eyes Neck no lymphadenopathy and supple General: Negative for tenderness Chest Wall Chest: Negative for tenderness Resp normal respiratory effort and normal air movement Effort and Inspection: symmetric chest movement; Negative for respiratory distress Cardio regular rate and no murmurs Rate: tachycardic Rhythm: abnormal rhythm Peripheral Pulses: pulses 2+ throughout GI normal to inspection, nondistended, normoactive bowel sounds and non-tender Palpation: Negative for guarding or rebound tenderness present Back/Spine no CVA tenderness and no thoracic nor lumbar tenderness Extremity normal to inspection General Extremety ED: Negative for edema or tenderness General Extremity: Negative for edema Neuro oriented x3 and no sensory deficits noted Sensorium / Orientation: awake and alert Skin no rashes or lesions noted and no wounds MDM MDM MDM Narrative Medical decision making narrative: Interventions / MDM: Differential diagnosis: Cardiac dysrhythmia, A-fib, SVT, VT Diagnosis considered but do not suspect: Pulmonary embolism however no dyspnea, not hypoxic, on Eliquis My EKG interpretation: A-fib RVR ST depressions likely just demand ischemia Imaging independently reviewed and interpreted by myself: 1 view chest x-ray: Noacute process External documents reviewed: N/A Test considered but not ordered:N/A ED course: Patient A-fib with RVR blood pressure stable patient given Lopressor x2 heart rate down 130s will go up to 150s blood pressure 120s to 150s with treatment. Laboratory studies were ordered. 1028: I reach out to our on-call cath lab nurse Dr. Bruno, discussed patient's history findings with her on Eliquis. Discussed potential direct-current cardioversion, however with normal stable blood pressure and her history of cardioverting back on a Cardizem drip back in April he recommended this routeof care. After 2 doses Lopressor she was given IV Cardizem bolus then drip is ordered. Re-evaluation: Laboratory studies returned normal with potassium and magnesium. 1100: Heart rate fluctuating 100-120s on the Cardizem drip, A-fib on the monitorblood pressure stable 110s. I will discussed with hospitalist service for admission. Of note, after admission place, patient did convert to normal sinus rhythm the Cardizem drip was stopped. She remained asymptomatic. I we discussed with cath lab nurse, he would like still like her observed in the hospital for monitoring. This was relayed to hospitalist. Repeat EKG normal sinus rate of [address] depressions resolved. Disposition discussed with patient/family/significant other: Patient Case discussed with consulting clinician: Cardiology, Dr. Bruno, Hospitalist Lab Data Attestation: I reviewed the patient's lab results. Labs: Laboratory Results - last 24 hr 07/20/22 07/20/22 10:06 10:06 WBC 8.8 RBC 5.43 H Hgb 15.6 H Hct 46.4 MCV 85.5 MCH 28.7 MCHC 33.6 RDW Std Deviation 39.8 RDW Coeff of Luiza 12.9 Plt Count 366 MPV 10.6 Immature Gran % (Auto) 0.300 Neut % (Auto) 64.6 Lymph % (Auto) 20.8 Kane % (Auto) 12.3 H Eos % (Auto) 1.1 Baso % (Auto) 0.9 Absolute Neuts (auto) 5.7 Absolute Lymphs (auto) 1.83 Nucleated RBC % 0 Sodium 135 L Potassium 3.8 Chloride 100 Carbon Dioxide 26.0 Anion Gap 9 BUN 17 Creatinine 0.94 Estim Creat Clear Calc 41.42 Est GFR (MDRD) Af Amer 75 Est GFR (MDRD) Non-Af 62 BUN/Creatinine Ratio 18.0 Glucose 131 H Calcium 9.3 Magnesium 2.2 Radiography Diagnostic Testing: Clinical Impression(s) from Imaging Studies Chest X-Ray 07/20/22 10:30 IMPRESSION: No radiographic evidence of acute cardiopulmonary disease. Electronically Signed: Rebecca Magana MD at 10:41 EST , EKG Initial EKG: Attestation: I personally reviewed and interpreted this EKG as follows: Comments: A-fib rate of 152, ST depression anterior lateral, no elevations. No T wave changes. Likely demand ischemia. Follow-up EKG: Attestation: I personally reviewed and interpreted this EKG as follows: Comments: Sinus rate of 60, no ST changes isolated T wave inversion lead III, nonspecific. Discharge Plan Dx/Rx/DC Orders Clinical Impression: Atrial fibrillation with RVR, Palpitations, Chronic anticoagulation Disposition Disposition: Acute Care Hospital [facility] Discharge Date/Time: 07/20/22 12:04 What to do if you have Problems For any increased pain, shortness of breath, bleeding, nausea or vomiting, chestpain, or any unexpected problems, contact your Primary Care Provider. Call [facility] ([phone]) or report to the closest Emergency Room. Call 911 if necessary. 07/20/22 1356 <Electronically signed by Dung Stoll> Cosigner Signature (if applicable): CC: Dr. Ana Lilia Sagastume DO ~ Signed [facility] Work Phone: 1(105) 831-620302-26-2023 History and physical note Author Dr. Montano [facility] July 20, 2022 11:34am Note Date/Time July 20, 2022 11:23am [facility] Medical Records Department [address] [place] [id number] H&P Exam - Hospitalist 07/20/22 1115 MR#: [id number] Acct: [id number] Name: YADY COOMBS Rep #:[id number] : 1950 71 From: Valerie Montano DO PCP: Dr. Ana Lilia Sagastume DO Status:AD M DION Location: [place] [id number] [facility] General Date of Admission: 07/20/22 Date of Service: 07/20/22 Chief Complaint: Palpitations HPI Narrative YADY COOMBS, is a 71 F who presented to the emergency department at [facility] on 07/20/2022 when she developed sudden onset of palpitations while at anabaptism approximately 1 hour prior to arrival. She had some mild lightheadedness associated but no chest pain. She has a history of atrial fibrillation that was diagnosed in February 2022 and is on metoprolol 100 mg daily as well as Eliquis. She is compliant with her home medications. 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 She follows withDr. Valle at baseline and was recently evaluated by EP at [facility]. Evidently, there is discussion of possible recurrent ablation for atrial fibrillation versus antiarrhythmic therapy and she was planning on discussing this with Dr. Valle before making a decision. She complains of a cough thathas been lingering but no fevers or chills. Overall she been feeling quite wellup until the event that brought her in today. Vital signs on presentation demonstrated temperature of 97.1, heart rate 153, blood pressure initially 174/148 however since initiation of Cardizem drip bloodpressures have been 112-118/62-69, respiratory rate 17, oxygen saturations are 94% on room air. CBC shows erythrocytosis that is new but is otherwise unremarkable. Her chemistry panel shows mild hyponatremia of the sodium of 134 but is otherwise normal. Serum glucose is 131 but is nonfasting. Magnesium level is normal at 2.2. Chest x-ray showed no radiographic evidence of any acute cardiopulmonary process. EKG shows atrial fibrillation with a rate of [address] depression in the anterior lateral leads with no elevation. This is suspected related to demand ischemia with her heart rate. Case was discussed with cardiology in the emergency department and the emergencydepartment physician was planning on cardioverting her however cardiology wantedher placed on a Cardizem drip and admitted to the hospital. Cardizem drip was initiated prior to admission. [facility] Medical History Abnormal mammogram of left breast Cataract Chest pain Chronic anticoagulation COVID-19 (04/23/21) Depression Essential hypertension Family history of LA (myocardial infarction) History of Nprpp-Bdpwbcivm-Cydtz (WPW) syndrome Hypothyroidism Over 65 years old Paroxysmal atrial fibrillation with RVR SVT (supraventricular tachycardia) WPW ([place]-Bgdrebctg-Zuqct syndrome) Home Medications chlorthalidone 25 mg tablet 25 mg PO DAILY blood pressure 12/06/19 [History Last Taken Unknown] duloxetine 60 mg capsule,delayed release 60 mg PO DAILY DEPRESSION 12/06/19 [History Last Taken 07/20/22] alendronate 70 mg tablet 70 mg PO SA OSTEOPEROSIS 05/28/21 [History Last Taken 07/19/22] levothyroxine 112 mcg tablet (Synthroid) 112 mcg PO DAILY THYROID 12/13/21 [History Last Taken 07/20/22] apixaban 5 mg tablet (Eliquis) 5 mg PO BID AFIB 05/03/22 [History Last Taken 07/20/22] metoprolol succinate 100 mg tablet,extended release 24 hr 100 mg PO DAILY BLOOD PRESSURE 05/03/22 [History Last Taken 07/20/22] potassium chloride 20 mEq tablet,extended release 1 ea PO BID SUPPLEMENT 06/16/22 [History Last Taken 07/20/22] albuterol sulfate 90 mcg/actuation aerosol inhaler 2 inh inhalation 4X/DAY COUGH07/20/22 [History Last Taken 07/20/22] beclomethasone dipropionate 80 mcg/actuation HFA breath activated aerosol (Qvar RediHaler) 2 inh inhalation BID COUGH 07/20/22 [History Last Taken 07/20/22] calcium carbonate 500 mg-vitamin D3 10 mcg (400 unit) tablet (Calcium 500 + D) 1tab PO QHS SUPPLEMENT 07/20/22 [History Last Taken 07/04/22] Allergy/AdvReac Type Severity Reaction Status Date / Time No Known Allergies Allergy Verified 07/20/22 10:00 anesthesia AdvReac Nausea & Uncoded 07/20/22 10:00 Vomiting Family History Other Diabetes Heart disease Hypertension Myocardial infarction Surgical History History of bilateral cataract extraction (~02/2022) History of cardiac radiofrequency ablation History of left heart catheterization (LHC) (~08/28/20) History of radiofrequency ablation procedure for cardiac arrhythmia (~2002) History of surgery on left wrist Social History Smoking Status: Never smoker alcohol intake: never substance use type: does not use caffeine: Yes Type: tea Number of servings: 6 ROS Constitutional Constitutional: Denies anorexia, change in weight, chills, fatigue, fever(s), malaise, night sweats, weakness or other Eyes Eyes: Denies blurry vision, change in eye color, change in vision, discharge from eye(s), double vision, erythema, eye pain, loss of vision or other ENT HEENT: Reports nasal congestion; Denies abnormal hearing, dysphagia, ear pain, epistaxis, headache(s), hearing loss, nasal discharge, post nasal drip, sinus pressure, sore throat or other Cardiovascular Cardiovascular: Denies chest pain, claudication, dyspnea on exertion, edema, lightheadedness, orthopnea, palpitations, paroxysmal nocturnal dyspnea, rapid heart rate, syncope or other Respiratory/Chest Respiratory/Chest: Reports cough; Denies dyspnea, excessive phlegm production, hemoptysis, productive cough, shortness of breath at rest, shortness of breath with exertion, wheezing or other Gastrointestinal Gastrointestinal: Denies abdominal pain, coffee ground emesis, constipation, diarrhea, dyspepsia, hematemesis, hematochezia, loose stools, melena, nausea, vomiting or other Genitourinary Genitourinary: Denies burning urination, difficulty urinating, dysuria, hematuria, nocturia, urinary frequency, urinary hesitancy, urinary incontinence,urinary urgency or other Musculoskeletal Musculoskeletal: Denies arthralgias, back pain, joint pain, joint stiffness, joint swelling, myalgias, neck pain or other Neurologic Neurologic: Denies abnormal gait, abnormal speech, confusion, disequilibrium, dizziness, focal weakness, headache(s), numbness, paresthesias, seizure-like activity, seizures, syncope, tingling, tremor(s) or other Psychiatric Psychiatric: Denies anxiety, depression, homicidal ideation, suicidal ideation or other Endocrine Endocrinology: Denies change in body appearance, cold intolerance, excessive sweating, heat intolerance, polydipsia, polyuria or other Hematologic/Lymphatic Hematologic/Lymphatic: Denies anemia, easy bleeding, easy bruising, lymphadenopathy or other Vital Signs Vital Signs Vital Signs: 07/20/22 09:58 07/20/22 10:05 07/20/22 10:16 Temperature 97.1 F L Temperature Source Temporal Pulse Rate 77 153 H Respiratory Rate 24 H 17 Respiratory Effort Normal Short of Breath Labored Respiratory Pattern Normal Blood Pressure 174/148 H 122/105 H Blood Pressure Mean 156 110 Pulse Ox 97 94 Oxygen Delivery Method Room Air Room Air Oxygen Flow Rate (L/min) 07/20/22 10:28 07/20/22 10:33 07/20/22 10:41 Temperature Temperature Source Pulse Rate 156 H 117 H 166 H Respiratory Rate 20 H 11 L 16 Respiratory Effort Respiratory Pattern Blood Pressure 166/77 H 118/69 118/69 Blood Pressure Mean 106 85 85 Pulse Ox 97 95 97 Oxygen Delivery Method Nasal Cannula Nasal Cannula Nasal Cannula Oxygen Flow Rate (L/min) 2 2 2 07/20/22 11:01 Temperature Temperature Source Pulse Rate 111 H Respiratory Rate 16 Respiratory Effort Respiratory Pattern Blood Pressure 111/62 Blood Pressure Mean 78 Pulse Ox Oxygen Delivery Method Oxygen Flow Rate (L/min) Weight Weight: 72.802 kg Body Mass Index (BMI) 30.3 Physical Exam Const alert, oriented x3, healthy appearing and well nourished Constitutional Narrative: Obese, white female who appears well, sitting up in bed, nontoxic, very pleasant General Appearance: cooperative HEENT normocephalic, head/scalp atraumatic, hearing grossly normal bilaterally and moist oral mucous membranes Resp normal respiratory effort, no retractions, no use of accessory muscles and clearto auscultation bilaterally Cardio regular rate, regular rhythm, S1 normal heart sound, S2 normal heart sound, no murmurs, no rub, no gallops, no clicks and no JVD GI normal to inspection, nondistended, normoactive bowel sounds, soft to palpation,non-tender and non-distended; Negative for hepatosplenomegaly Extremity no clubbing, cyanosis or edema Neuro oriented x3, CN's II-XII intact bilaterally, moves all extremities and no focal motor deficits Speech: speech normal Psych affect normal Psych Narrative: Very pleasant Results Lab / Micro Data Attestation: I reviewed the patient's lab results. Result Diagrams: 07/20/22 10:06 07/20/22 10:06 Labs: Laboratory Results - last 24 hr 07/20/22 10:06: WBC 8.8, RBC 5.43 H, Hgb 15.6 H, Hct 46.4, MCV 85.5, MCH 28.7, MCHC 33.6, RDW Std Deviation 39.8, RDW Coeff of Luiza 12.9, Plt Count 366, MPV 10.6, Immature Gran % (Auto) 0.300, Neut % (Auto) 64.6, Lymph % (Auto) 20.8, Kane % (Auto) 12.3 H, Eos % (Auto) 1.1, Baso % (Auto) 0.9, Absolute Neuts (auto)5.7, Absolute Lymphs (auto) 1.83, Nucleated RBC % 0 07/20/22 10:06: Sodium 135 L, Potassium 3.8, Chloride 100, Carbon Dioxide 26.0, Anion Gap 9, BUN 17, Creatinine 0.94, Estim Creat Clear Calc 41.42, Est GFR (MDRD) Af Amer 75, Est GFR (MDRD) Non-Af 62, BUN/Creatinine Ratio 18.0, Glucose 131 H, Calcium 9.3, Magnesium 2.2 Radiology Impression Chest X-Ray 07/20/22 10:30 IMPRESSION: No radiographic evidence of acute cardiopulmonary disease. Electronically Signed: Rebecca Magana MD at 10:41 EST , Assessment & Plan Assessment/Plan (1) Atrial fibrillation with RVR: (2) Palpitations: PLAN: Plan A-fib with RVR -Patient with previous ablation for WPW -Met with EP within the last 10 days over to [facility] and discussed possible upcoming ablation however nothing has been set yet -Continue home metoprolol 100 mg daily -Continue Eliquis -Check TSH -ED was going to cardiovert her but per cardiology request will place on [facility] -Patient with recent echocardiogram on 07/04/2021 that showed an EF of 75% and noevidence of diastolic dysfunction, trivial mitral valve insufficiency and normalatria bilaterally. -Cardiology consult initiated by the emergency department Hypertension -Continue home chlorthalidone neck-continue home metoprolol Hypothyroidism -Check TSH -Continue home levothyroxine History of WPW -Treated with radiofrequency ablation in 2002 Depression -Continue home duloxetine Asthma -Continue home inhalers Osteoporosis -Continue alendronate every Thursday -Continue calcium carbonate supplementation DVT prophylaxis -Full anticoagulation with Eliquis CODE STATUS -Full code Charges/Coding Visit Charges Inpatient E&M: 14185 Init Hosp L2 07/20/22 1134 <Electronically signed by Valerie Montano DO> Cosigner Signature (if applicable): CC: Dr. Ana Lilia Sagastume DO; Dr. Valerie Montano DO~ Signed [facility] Work Phone: [phone]) 304-477902-17-2023 NoteHNO ID: [id number] Author: Mikel Andrade MD Service: ? Author Type: Physician Type: Progress Notes Filed: 07/20/2022 8:10 PM Note Text: PRIMARY CARE PHYSICIAN: Ana Lilia Sagastume DO ([facility]) [address] [facility] [address] [place] [address] REFERRING PHYSICIAN: Leila Burroughs, PAC ([facility]) [address] [facility] [id number] Patient Care Team: Ana Lilia Sagastume DO as PCP - General Leila Licea (Alban) Manjeet as Physician Senior Scrum Master (Pulmonary and Critical Care Medicine) Jorge Alberto Valle as Specialty Lead Electrical Engineer (Cardiology) CHIEF COMPLAINT: Evaluation for arrhythmia HISTORY OF PRESENT ILLNESS: Ms. Coombs is a 71 year old female who presents today for evaluation of arrhythmia, referred by Dr. Valle of [facility]. Ms. Coombs has atrial fibrillation. She has history of Jurwt-Dgjrbxjke-Ueykj syndrome (addendum 07/20/2022: review of [facility] records indicates she had SVT, not WPW, underwent successful catheter ablation for SVT in 2002, a concealed right posteroseptal accessory pathway), underwent catheter ablation for this in 2002 at [facility]. She states in about May 2020 she experienced palpitations and tachycardia. She presented to the local ER but by then the arrhythmia had spontaneously terminated before an EKG could be performed. Then in about February 2022 she had recurrence of symptoms lasting about 1.5 hours. Then in April 2022 had an episode and went to the ER and was found to be in atrial fibrillation with rapid ventricular response documented. She was treated with intravenous diltiazem, the arrhythmia then spontaneously converted back to sinus rhythm sometime during overnight observation. She states that she has experienced a couple episodes of palpitations since April 2022, but no prolonged episodes. She is on metoprolol and Eliquis. She had COVID illness in 2020, and states that since then she has continued to have a chronic cough as well as exertional shortness of breath. She denies chest pain, orthopnea, PND, syncope. I have confirmed and edited as necessary, the PFSH and ROS obtained by others. PAST MEDICAL HISTORY Diagnosis Date Anticoagulant long-term use indication: stroke prevention atrial fibrillation At risk for stroke [id number] = 3 (HTN, age, female gender) Chronic depressive personality disorder Essential hypertension History of COVID-19 04/23/2021 History of paroxysmal supraventricular tachycardia symptomatic SVT; EP study 2002 revealed concealed right posteroseptal accessory pathway with inducible SVT, successfully ablated [place] (hard of hearing) Hypothyroidism, unspecified Paroxysmal atrial fibrillation (HCC) PONV (postoperative nausea and vomiting) S/P ablation operation for arrhythmia RF catheter ablation for SVT (concealed right posteroseptal accessory pathway) 2002 Ventral hernia, unspecified, without mention of obstruction or gangrene PAST SURGICAL HISTORY Procedure Laterality Date CATARACT EXTRACTION HX Right 02/2022 CATARACT EXTRACTION HX Left 01/2022 COLONOSCOPY COLONOSCOPY FLX DX W/COLLJ SPEC WHEN PFRMD 11/30/2014 Colonoscopy EPS: SVT ABLATION 08/02/2002 RF catheter ablation of concealed right posteroseptal accessory pathway; [facility] Dr. Hilliard ESOPHAGOGASTRODUODENOSCOPY TRANSORAL DIAGNOSTIC 12/12/2015 EGD IMPLANT MESH OPN HERNIA RPR/DEBRIDEMENT CLOSURE 07/06/2008 LEFT HEART CATH,PERCUTANEOUS 08/28/2020 [facility]; no significant CAD, LVEF 65% LIG/TRNSXJ FLP TUBE ABDL/VAG APPR UNI/BI 1977 Tubal ligation REPAIR FIRST ABDOMINAL WALL HERNIA 07/06/2008 THYROIDECTOMY TOTAL/COMPLETE 1995 left, partial- benign WRIST SURGERY HX Left SOCIAL HISTORY Social History Tobacco Use Smoking status: Never Passive exposure: Past Smokeless tobacco: Never Substance Use Topics Alcohol use: No Drug use: No FAMILY HISTORY Problem Relation Age of Onset Hypertension Mother Psychiatry Mother other (covid-19) Mother Diabetes Mother Heart disease Father other (heavy smoker) Father Heart Attack Father 62 Arthritis Sister Diabetes Sister Heart Failure Brother Diabetes Brother Heart disease Brother Sudden Cardiac Brother in his sleep in his 50s Heart Attack Brother 45 heart attack in his 40s Coronary Artery Disease Brother CABG other (tobacco use) Brother Heart Attack Paternal Grandfather 69 Sudden Cardiac Paternal Grandfather Heart Attack Paternal Uncle other (sudden ) Daughter suddenly, no autopsy other (syncope) Daughter Arrhythmia Daughter Arthritis Daughter ALLERGIES: ALLERGIES No Known Allergies MEDICATIONS: DULoxetine (CYMBALTA) 60 mg capsule Take 60 mg by mouth once daily. QVAR REDIHALER 80 mcg/actuation inhaler Inhale 2 Puffs as instructed once daily. albuterol HFA (PROVENTIL HFA, VENTOLIN HFA) 90 mcg/actuation (more content not included)...[facility]02-17-2023 Nurse Note* Lyssa Stephens MA - 07/11/2022 10:41 AM EST No cardiac complaints today. Lyssa Stephens [facility] History of Present illness Narrative* Mikel Andrade MD - 07/11/2022 10:20 AM EST PRIMARY CARE PHYSICIAN: Ana Lilia Sagastume DO ([facility]) [address] [facility] [address] [place] [address] REFERRING PHYSICIAN: Leila Burroughs, DOREEN ([facility]) [address] [facility] [id number] Patient Care Team: Ana Lilia Sagastume DO as PCP - General Leila GalindoPa) Manjeet as Physician Senior Scrum Master (Pulmonary and Critical Care Medicine) Jorge Alberto Valle as Specialty Lead Electrical Engineer (Cardiology) CHIEF COMPLAINT: Evaluation for arrhythmia HISTORY OF PRESENT ILLNESS: Ms. Coombs is a 71 year old female who presents today for evaluation of arrhythmia, referred by Dr. Valle of [facility]. Ms. Coombs has atrial fibrillation. She has history of Rxavc-Oukqtmhzw-Uojkd syndrome, underwent catheter ablation for this in 2002 at [facility]. She states in aboutMay 2020 she experienced palpitations and tachycardia. She presented to the local ER but by then the arrhythmia had spontaneously terminated before an EKG could be performed. Then in about February 2022 she had recurrence of symptoms lasting about 1.5 hours. Then in April 2022 had an episode and went to the ER and was found to be in atrial fibrillation with rapid ventricular response documented. She was treated with intravenous diltiazem, the arrhythmia then spontaneously converted back to sinus rhythm sometime during overnight observation. She states that she has experienced a couple episodes of palpitations since April 2022, but no prolonged episodes. She is on metoprolol and Eliquis. She had COVID illness in 2020, and states that since then she has continued to have a chronic cough as well as exertional shortness of breath. She denies chest pain, orthopnea, PND, syncope. I have confirmed and edited as necessary, the PFSH and ROS obtained by others. PAST MEDICAL HISTORY Diagnosis Date Anticoagulant long-term use At risk for stroke [id number] = 3 (HTN, age, female gender) Chronic depressive personality disorder Essential hypertension History of COVID-19 04/23/2021 History of Lslwu-Jamkqbhta-Gwhxh (WPW) syndrome [place] (hard of hearing) Hypothyroidism, unspecified Paroxysmal atrial fibrillation (HCC) PONV (postoperative nausea and vomiting) S/P ablation operation for arrhythmia WPW ablation 2002 Ventral hernia, unspecified, without mention of obstruction or gangrene PAST SURGICAL HISTORY Procedure Laterality Date CATARACT EXTRACTION HX Right 02/2022 CATARACT EXTRACTION HX Left 01/2022 COLONOSCOPY COLONOSCOPY FLX DX W/COLLJ SPEC WHEN PFRMD 11/30/2014 Colonoscopy EPS: SVT ABLATION 2002 SVT, WPW ESOPHAGOGASTRODUODENOSCOPY TRANSORAL DIAGNOSTIC 12/12/2015 EGD IMPLANT MESH OPN HERNIA RPR/DEBRIDEMENT CLOSURE 07/06/2008 LEFT HEART CATH,PERCUTANEOUS 08/28/2020 [facility]; no significant CAD, LVEF 65% LIG/TRNSXJ FLP TUBE ABDL/VAG APPR UNI/BI 1977 Tubal ligation REPAIR FIRST ABDOMINAL WALL HERNIA 07/06/2008 THYROIDECTOMY TOTAL/COMPLETE left, partial- benign WRIST SURGERY HX Left SOCIAL HISTORY Social History Tobacco Use Smoking status: Never Passive exposure: Past Smokeless tobacco: Never Substance Use Topics Alcohol use: No Drug use: No FAMILY HISTORY Problem Relation Age of Onset Hypertension Mother Psychiatry Mother other (covid-19) Mother Diabetes Mother Heart disease Father other (heavy smoker) Father Heart Attack Father 62 Arthritis Sister Diabetes Sister Heart Failure Brother Diabetes Brother Heart disease Brother Sudden Cardiac Brother in his sleep in his 50s Heart Attack Brother 45 heart attack in his 40s Coronary Artery Disease Brother CABG other (tobacco use) Brother Heart Attack Paternal Grandfather 69 Sudden Cardiac Paternal Grandfather Heart Attack Paternal Uncle other (sudden ) Daughter suddenly, no autopsy other (syncope) Daughter Arrhythmia Daughter Arthritis Daughter ALLERGIES: ALLERGIES No Known Allergies MEDICATIONS: DULoxetine (CYMBALTA) 60 mg capsule Take 60 mg by mouth once daily. QVAR REDIHALER 80 mcg/actuation inhaler Inhale 2 Puffs as instructed once daily. albuterol HFA (PROVENTIL HFA, VENTOLIN HFA) 90 mcg/actuation inhaler Inhale 2 Puffs as instructed four times daily. potassium chloride 20 mEq TbER Take 1 tablet by mouth twice daily. apixaban (ELIQUIS) 5 mg tab(s) Take 5 mg by mouth twice daily. chlorthalidone (HYGROTON) 25 mg tablet Take 25 mg by mouth once daily. alendronate (FOSAMAX) 70 mg tablet Take 70 mg by mouth one time a week. In AM with cup of water on empty stomach. Nothing else by mouth and stay upright for 30 min. metoprolol succinate ER (TOPROL XL) 100 mg Take 100 mg by mouth once daily. CALCIUM CARBONATE/VITAMIN D2 (CALCIUM 600 WITH VITAMIN D ORAL) Take 1 tablet by mouth once daily. levothyroxine (SYNTHROID) 112 mcg tablet Take 112 mcg by mouth daily before breakfast. COMPOUNDED PRESCRIPTION Take 6,000 Units by mouth once daily. REVIEW OF SYSTEMS: Review of Systems Constitutional: Negative for chills, fever and weight loss. Respiratory: Positive for cough (chronic since COVID-19 in 2020) and shortness of breath (mild exertional shortness of breath). Negative for hemoptysis. Cardiovascular: Positive for palpitations (occasionally). Negative for chest pain, orthopnea, leg swelling and PND. Gastrointestinal: Negative for abdominal pain, blood in stool, melena, nausea and vomiting. Genitourinary: Negative for hematuria. Musculoskeletal: Positive for back pain (chronic). Negative for falls and neck pain. Skin: Negative for rash. Neurological: Positive for dizziness (occasional). Negative for loss of consciousness. PHYSICAL EXAMINATION: BP 128/73 Pulse 67 Ht 5' 1.5 (1.56m) Wt 160 lb (72.6kg) SpO2 97% BMI 29.75 kg/(m^2). Physical Exam Vitals reviewed. Constitutional: General: She is not in acute distress. Appearance: Normal appearance. HENT: Head: Normocephalic and atraumatic. Cardiovascular: Rate and Rhythm: Normal rate and regular rhythm. Heart sounds: Normal heart sounds, S1 normal and S2 normal. No murmur heard. No friction rub. Pulmonary: Effort: Pulmonary effort is normal. No respiratory distress. Breath sounds: Normal breath sounds. No wheezing, rhonchi or rales. Musculoskeletal: Cervical back: Neck supple. Right lower leg: No edema. Left lower leg: No edema. Skin: General: Skin is warm and dry. Neurological: General: No focal deficit present. Mental Status: She is alert and oriented to person, place, and time. Psychiatric: Mood and Affect: Mood normal. Behavior: Behavior normal. Thought Content: Thought content normal. CARDIOVASCULAR MEDICINE TESTING: Electrocardiogram: Sinus rhythm 62 bpm; normal conduction intervals (CA 170 ms, QRS 80 ms); QTc 442ms; no WPW patterns I have personally reviewed the Electrocardiogram. ASSESSMENT/PLAN: 1. Paroxysmal atrial fibrillation (HCC) - ICD9: 427.31, ICD10: I48.0 (primary diagnosis) 2. At risk for stroke - ICD9: V15.89, ICD10: Z91.89 3. Anticoagulant long-term use - ICD9: V58.61, ICD10: Z79.01 4. History of Tjwuo-Lkymralkm-Reebo (WPW) syndrome - ICD9: V12.59, ICD10: Z86.79 5. S/P ablation operation for arrhythmia - ICD9: V45.89, ICD10: Z98.890, Z86.79 IMPRESSION: Ms. Coombs has paroxysmal atrial fibrillation, at times associated with excessively bothersome symptoms. However, she has been doing better more recently with beta-eva (metoprolol). She is also being treated with oral anticoagulation therapy for stroke prevention, seems to have favorable risk to b enefit. If she continues to do well with the beta-eva, we can for now avoid more advanced treatment such as antiarrhythmic drug or catheter ablation. However, if her symptoms worsen despite the beta-eva therapy, and spite of optimization of the beta-eva dose, we could consider either anantiarrhythmic drug or catheter ablation. Antiarrhythmic drug options would not be substantially limited, she does not have contraindication to the most desirable antiarrhythmic drug class, the ClassIC agents such as flecainide or propafenone. She does not have evidence by EKG of recurrence of manifest accessory pathway conduction AKA WPW pattern. I had a detailed discussion with Ms. Coombs regarding my evaluation and recommendations. After our discussion, Ms. Coombs expressed her understanding and I answered all her questions to her apparent satisfaction. She agrees with the plan of care as outlined. PLAN AND RECOMMENDATIONS: Continue with beta-eva therapy for now, as she seems to be doing reasonably well with this approach. If bothersome symptoms from recurrent atrial fibrillation despite such treatment, consider flecainide (assume > moderate degree of LVH --- generally ventricular septum > 1.5 cm --- has been excluded). Another option would be catheter ablation. Return if symptoms worsen or fail to improve. She will continue to follow up with [facility]. Mikel Andrade MD 07/11/2022 Medical Decision Making: Problems: Moderate: New problem with uncertain prognosis Data: Unique source(s) for external note(s) reviewed: 3+ Unique test result(s) reviewed: 3+ Unique test(s) ordered: 1 Risk: Moderate: Moderate risk from testing/treatment, Drug management and Decision on minor surgery w/ risk factors Medical Decision Making Level: 4 - Moderate [facility] of Past illness Narrative* Problem Noted Date Resolved Date WPW (Nmnra-Pbvbflfzp-Bwblm syndrome) 11/22/2014 07/10/2022 documented as of this encounter (statuses as of 07/19/2022) [facility] Avila [facility] July 21, 2022 11:31am Note Date/Time July 21, 2022 11:25am [facility] Medical Records Department [address] [place] [address] Instructions for Home/Discharge Instructions 07/21/22 1124 MR#: [id number] Acct: [id number] Name: YADY COOMBS Rep #:[id number] : 1950 71 From: Everett fowler MD PCP: Dr. Ana Lilia Sagastume, DO Status:AD Vinayak ASHLEY Discharge Instructions Diet Discharge Diet: No restrictions Activity Discharge Activity: Return to Normal Activity Dressing / Incision Call your doctor if you observe: Fever of 101 or Higher, Shortness of breath, Dizziness, Fainting spells, Swelling in the ankles, Chest pain and Increased palpitations (irregular heartbeat) Follow Up Care Test Results: Test results from this visit will be discussed in further detail at your follow- up appointment, if applicable. Discharge Plan Admission Admit Date/Time: 07/20/22 11:10 Attending Provider: Everett Avila Primary Care Provider: Ana Lilia Sagastume Consulting Providers: Nena Bruno ; Valerie Montano Discharge Orders/Prescriptions Prescriptions: Continued levothyroxine [Synthroid] 112 mcg tablet 112 mcg PO DAILY alendronate 70 mg tablet 70 mg PO SA potassium chloride 20 mEq tablet extended release 1 ea PO BID chlorthalidone 25 MG tablet 25 mg PO DAILY duloxetine 60 MG capsule 60 mg PO DAILY Eliquis 5 mg tablet 5 mg PO BID metoprolol succinate 100 mg tablet extended release 24 hr 100 mg PO DAILY albuterol sulfate 90 mcg/actuation HFA aerosol inhaler 2 inh INHALATION 4X/DAY calcium carbonate-vitamin D3 [Calcium 500 + D] 500 mg-10 mcg (400 unit) Tablet 1 tab PO QHS Qvar RediHaler 80 mcg/actuation HFA aerosol breath activated 2 inh INHALATION BID Referrals / Follow Up: Ana Lilia Sagastume DO [Primary Care Provider] - Within 1 Week Leila Burroughs PA [Med Staff - Adv Practice Prof] - Within 3 Months Disposition Disposition (needs filled in before D/C Order can be placed): Home, Self Care 07/21/22 1131<Electronically signed by Everett Avila MD>Everett Avila MD CC: Dr. Nena Bruno MD; Dr. Ana Lilia Sagastume DO; Dr. Valerie Montano DO ~ Signed [facility] Work Phone: Evaluation note* Diagnosis Onset Date Resolution Status Abnormal mammogram of left breast acute [facility] Work Phone: Evaluation note* Diagnosis Onset Date Resolution Status Paroxysmal atrial fibrillation with RVR acute SVT (supraventricular tachycardia) acute WPW (Ucydt-Bxoethbun-Bvajt syndrome) acute Essential hypertension chron ic History of radiofrequency ab lation procedure for cardiac arrhythmia resolved Acute hypokalemia acute Atrial fibrillation with rapid ventricular response acute Chronic anticoagulation acut e History of cardiac radiofrequency ablation acute History of Ftggq-Fqoiawbga-Ymqlr (WPW) syndrome acute Hypercoagulability due to atrial fibrillation acute [facility] Work Phone: Evaluation note* Diagnosis Onset Date Resolution Status History of radiofrequency ab lation procedure for cardiac arrhythmia resolved Acute hypokalemia resolved Atrial fibrillation with rapid ventricular response resolved [facility] Work Phone: Evaluation note* Diagnosis Onset Date Resolution Status Paroxysmal atrial fibrillation with RVR chronic History of radiofrequency ab lation procedure for cardiac arrhythmia resolved SVT (supraventricular tachycardia) resolved WPW (Ejwhk-Frziqgvpu-Osnoi syndrome) resolved Acute hypokalemia resolved Atrial fibrillation with rapid ventricular response resolved Acute bronchitis acute Cough acute Paroxysmal atrial fibrillation with RVR chronic SVT (supraventricular tachycardia) resolved WPW (Majvl-Ypiymenrg-Tkoxd syndrome) resolved [facility] Work Phone: Evaluation note* Diagnosis Paroxysmal atrial fibrillation (HCC)- Primary Atrial fibrillation At risk for stroke Other specified personal history presenting hazards to health Anticoagulant long-term use Long-term (current) use of anticoagulants History of Dvcyw-Bnkdwyjsn-Tohtp (WPW) syndrome S/P ablation operation for arrhythmia Other postprocedural status [facility] Diagnosis Onset Date Resolution Status Acute hypokalemia resolved Atrial fibrillation with rapid ventricular response resolved Acute bronchitis acute Cough acute Paroxysmal atrial fibrillation with RVR chronic SVT (supraventricular tachycardia) resolved WPW (Dxutx-Mmwwgpwid-Dodko syndrome) resolved Atrial fibrillation with RVR acute Chronic anticoagulation acut e Palpitations acute [facility] Work Phone: Evaluation note* Diagnosis Onset Date Resolution Status Acute bronchitis acute Cough acute Paroxysmal atrial fibrillation with RVR chronic SVT (supraventricular tachycardia) resolved WPW (Oyjuo-Tuvoppoja-Oibyd syndrome) resolved Chronic anticoagulation acut e Palpitations acute Atrial fibrillation with RVR resolved Paroxysmal atrial fibrillation with RVR chronic SVT (supraventricular tachycardia) resolved WPW (Psxot-Bcpvwzfnj-Kwyzm syndrome) resolved [facility] Work Phone: History and physical note Author Dr. Montano [facility] July 20, 2022 11:34am Note Date/Time July 20, 2022 11:23am [facility] Medical Records Department [address] [place] [id number] H&P Exam - Hospitalist 07/20/22 1115 MR#: [id number] Acct: [id number] Name: YADY COOMBS Rep #:[id number] : 1950 71 From: Valerie Montano DO PCP: Dr. Ana Lilia Sagastume, DO Status:AD M DION [facility] Date of Admission: 07/20/22 Date of Service: 07/20/22 Chief Complaint: Palpitations HPI Narrative YADY COOMBS, is a 71 F who presented to the emergency department at [facility] on 07/20/2022 when she developed sudden onset of palpitations while at anabaptism approximately 1 hour prior to arrival. She had some mild lightheadedness associated but no chest pain. She has a history of atrial fibrillation that was diagnosed in February 2022 and is on metoprolol 100 mg daily as well as Eliquis. She is compliant with her home medications. 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 She follows withDr. Valle at baseline and was recently evaluated by EP at [facility]. Evidently, there is discussion of possible recurrent ablation for atrial fibrillation versus antiarrhythmic therapy and she was planning on discussing this with Dr. Valle before making a decision. She complains of a cough thathas been lingering but no fevers or chills. Overall she been feeling quite wellup until the event that brought her in today. Vital signs on presentation demonstrated temperature of 97.1, heart rate 153, blood pressure initially 174/148 however since initiation of Cardizem drip bloodpressures have been 112-118/62-69, respiratory rate 17, oxygen saturations are 94% on room air. CBC shows erythrocytosis that is new but is otherwise unremarkable. Her chemistry panel shows mild hyponatremia of the sodium of 134 but is otherwise normal. Serum glucose is 131 but is nonfasting. Magnesium level is normal at 2.2. Chest x-ray showed no radiographic evidence of any acute cardiopulmonary process. EKG shows atrial fibrillation with a rate of [address] depression in the anterior lateral leads with no elevation. This is suspected related to demand ischemia with her heart rate. Case was discussed with cardiology in the emergency department and the emergencydepartment physician was planning on cardioverting her however cardiology wantedher placed on a Cardizem drip and admitted to the hospital. Cardizem drip was initiated prior to admission. [facility] Medical History Abnormal mammogram of left breast Cataract Chest pain Chronic anticoagulation COVID-19 (04/23/21) Depression Essential hypertension Family history of LA (myocardial infarction) History of Bzyjg-Mdgluqvqj-Fusur (WPW) syndrome Hypothyroidism Over 65 years old Paroxysmal atrial fibrillation with RVR SVT (supraventricular tachycardia) WPW (Zqjkq-Mataykamm-Rztzq syndrome) Home Medications chlorthalidone 25 mg tablet 25 mg PO DAILY blood pressure 12/06/19 [History Last Taken Unknown] duloxetine 60 mg capsule,delayed release 60 mg PO DAILY DEPRESSION 12/06/19 [History Last Taken 07/20/22] alendronate 70 mg tablet 70 mg PO SA OSTEOPEROSIS 05/28/21 [History Last Taken 07/19/22] levothyroxine 112 mcg tablet (Synthroid) 112 mcg PO DAILY THYROID 12/13/21 [History Last Taken 07/20/22] apixaban 5 mg tablet (Eliquis) 5 mg PO BID AFIB 05/03/22 [History Last Taken 07/20/22] metoprolol succinate 100 mg tablet,extended release 24 hr 100 mg PO DAILY BLOOD PRESSURE 05/03/22 [History Last Taken 07/20/22] potassium chloride 20 mEq tablet,extended release 1 ea PO BID SUPPLEMENT 06/16/22 [History Last Taken 07/20/22] albuterol sulfate 90 mcg/actuation aerosol inhaler 2 inh inhalation 4X/DAY COUGH07/20/22 [History Last Taken 07/20/22] beclomethasone dipropionate 80 mcg/actuation HFA breath activated aerosol (Qvar RediHaler) 2 inh inhalation BID COUGH 07/20/22 [History Last Taken 07/20/22] calcium carbonate 500 mg-vitamin D3 10 mcg (400 unit) tablet (Calcium 500 + D) 1tab PO QHS SUPPLEMENT 07/20/22 [History Last Taken 07/04/22] Allergy/AdvReac Type Severity Reaction Status Date / Time No Known Allergies Allergy Verified 07/20/22 10:00 anesthesia AdvReac Nausea & Uncoded 07/20/22 10:00 Vomiting Family History Other Diabetes Heart disease Hypertension Myocardial infarction Surgical History History of bilateral cataract extraction (~02/2022) History of cardiac radiofrequency ablation History of left heart catheterization (LHC) (~08/28/20) History of radiofrequency ablation procedure for cardiac arrhythmia (~2002) History of surgery on left wrist Social History Smoking Status: Never smoker alcohol intake: never substance use type: does not use caffeine: Yes Type: tea Number of servings: 6 ROS Constitutional Constitutional: Denies anorexia, change in weight, chills, fatigue, fever(s), malaise, night sweats, weakness or other Eyes Eyes: Denies blurry vision, change in eye color, change in vision, discharge from eye(s), double vision, erythema, eye pain, loss of vision or other ENT HEENT: Reports nasal congestion; Denies abnormal hearing, dysphagia, ear pain, epistaxis, headache(s), hearing loss, nasal discharge, post nasal drip, sinus pressure, sore throat or other Cardiovascular Cardiovascular: Denies chest pain, claudication, dyspnea on exertion, edema, lightheadedness, orthopnea, palpitations, paroxysmal nocturnal dyspnea, rapid heart rate, syncope or other Respiratory/Chest Respiratory/Chest: Reports cough; Denies dyspnea, excessive phlegm production, hemoptysis, productive cough, shortness of breath at rest, shortness of breath with exertion, wheezing or other Gastrointestinal Gastrointestinal: Denies abdominal pain, coffee ground emesis, constipation, diarrhea, dyspepsia, hematemesis, hematochezia, loose stools, melena, nausea, vomiting or other Genitourinary Genitourinary: Denies burning urination, difficulty urinating, dysuria, hematuria, nocturia, urinary frequency, urinary hesitancy, urinary incontinence,urinary urgency or other Musculoskeletal Musculoskeletal: Denies arthralgias, back pain, joint pain, joint stiffness, joint swelling, myalgias, neck pain or other Neurologic Neurologic: Denies abnormal gait, abnormal speech, confusion, disequilibrium, dizziness, focal weakness, headache(s), numbness, paresthesias, seizure-like activity, seizures, syncope, tingling, tremor(s) or other Psychiatric Psychiatric: Denies anxiety, depression, homicidal ideation, suicidal ideation or other Endocrine Endocrinology: Denies change in body appearance, cold intolerance, excessive sweating, heat intolerance, polydipsia, polyuria or other Hematologic/Lymphatic Hematologic/Lymphatic: Denies anemia, easy bleeding, easy bruising, lymphadenopathy or other Vital Signs Vital Signs Vital Signs: 07/20/22 09:58 07/20/22 10:05 07/20/22 10:16 Temperature 97.1 F L Temperature Source Temporal Pulse Rate 77 153 H Respiratory Rate 24 H 17 Respiratory Effort Normal Short of Breath Labored Respiratory Pattern Normal Blood Pressure 174/148 H 122/105 H Blood Pressure Mean 156 110 Pulse Ox 97 94 Oxygen Delivery Method Room Air Room Air Oxygen Flow Rate (L/min) 07/20/22 10:28 07/20/22 10:33 07/20/22 10:41 Temperature Temperature Source Pulse Rate 156 H 117 H 166 H Respiratory Rate 20 H 11 L 16 Respiratory Effort Respiratory Pattern Blood Pressure 166/77 H 118/69 118/69 Blood Pressure Mean 106 85 85 Pulse Ox 97 95 97 Oxygen Delivery Method Nasal Cannula Nasal Cannula Nasal Cannula Oxygen Flow Rate (L/min) 2 2 2 07/20/22 11:01 Temperature Temperature Source Pulse Rate 111 H Respiratory Rate 16 Respiratory Effort Respiratory Pattern Blood Pressure 111/62 Blood Pressure Mean 78 Pulse Ox Oxygen Delivery Method Oxygen Flow Rate (L/min) Weight Weight: 72.802 kg Body Mass Index (BMI) 30.3 Physical Exam Const alert, oriented x3, healthy appearing and well nourished Constitutional Narrative: Obese, white female who appears well, sitting up in bed, nontoxic, very pleasant General Appearance: cooperative HEENT normocephalic, head/scalp atraumatic, hearing grossly normal bilaterally and moist oral mucous membranes Resp normal respiratory effort, no retractions, no use of accessory muscles and clearto auscultation bilaterally Cardio regular rate, regular rhythm, S1 normal heart sound, S2 normal heart sound, no murmurs, no rub, no gallops, no clicks and no JVD GI normal to inspection, nondistended, normoactive bowel sounds, soft to palpation,non-tender and non-distended; Negative for hepatosplenomegaly Extremity no clubbing, cyanosis or edema Neuro oriented x3, CN's II-XII intact bilaterally, moves all extremities and no focal motor deficits Speech: speech normal Psych affect normal Psych Narrative: Very pleasant Results Lab / Micro Data Attestation: I reviewed the patient's lab results. Result Diagrams: 07/20/22 10:06 07/20/22 10:06 Labs: Laboratory Results - last 24 hr 07/20/22 10:06: WBC 8.8, RBC 5.43 H, Hgb 15.6 H, Hct 46.4, MCV 85.5, MCH 28.7, MCHC 33.6, RDW Std Deviation 39.8, RDW Coeff of Luiza 12.9, Plt Count 366, MPV 10.6, Immature Gran % (Auto) 0.300, Neut % (Auto) 64.6, Lymph % (Auto) 20.8, Kane % (Auto) 12.3 H, Eos % (Auto) 1.1, Baso % (Auto) 0.9, Absolute Neuts (auto)5.7, Absolute Lymphs (auto) 1.83, Nucleated RBC % 0 07/20/22 10:06: Sodium 135 L, Potassium 3.8, Chloride 100, Carbon Dioxide 26.0, Anion Gap 9, BUN 17, Creatinine 0.94, Estim Creat Clear Calc 41.42, Est GFR (MDRD) Af Amer 75, Est GFR (MDRD) Non-Af 62, BUN/Creatinine Ratio 18.0, Glucose 131 H, Calcium 9.3, Magnesium 2.2 Radiology Impression Chest X-Ray 07/20/22 10:30 IMPRESSION: No radiographic evidence of acute cardiopulmonary disease. Electronically Signed: Rebecca Magana MD at 10:41 EST , Assessment & Plan Assessment/Plan (1) Atrial fibrillation with RVR: (2) Palpitations: PLAN: Plan A-fib with RVR -Patient with previous ablation for WPW -Met with EP within the last 10 days over to [facility] and discussed possible upcoming ablation however nothing has been set yet -Continue home metoprolol 100 mg daily -Continue Eliquis -Check TSH -ED was going to cardiovert her but [facility]ology [facility] -Patient with recent echocardiogram on 07/04/2021 that showed an EF of 75% and noevidence of diastolic dysfunction, trivial mitral valve insufficiency and normalatria bilaterally. -Cardiology consult initiated by the emergency department Hypertension -Continue home chlorthalidone neck-continue home metoprolol Hypothyroidism -Check TSH -Continue home levothyroxine History of WPW -Treated with radiofrequency ablation in 2002 Depression -Continue home duloxetine Asthma -Continue home inhalers Osteoporosis -Continue alendronate every Thursday -Continue calcium carbonate supplementation DVT prophylaxis -Full anticoagulation with Eliquis CODE STATUS -Full code Charges/Coding Visit Charges Inpatient E&M: 10348 Init Hosp L2 07/20/22 1134 <Electronically signed by Valerie Montano DO> Cosigner Signature (if applicable): CC: Dr. Ana Lilia Sagastume DO; Dr. Valerie Montano DO~ Signed [facility] Work Phone: Instructions* Name Dates Details Patient Instructions Indication:BMI 26.0-26.9,adult Start:20-May-2021 Instruction Type:Provider Instructions for Treatment How to Access Health Informa tion Online using Patient Portal and [employer] Apps Indication:BMI 26.0-26.9,adult Start:20-May-2021 Instruction Type:Patient Education Patient Instructions Indication:Encounter for annual general medical examination with abnormal findings in adult Start:02-May-2021 Instruction Type:Provider Instructions for Treatment How to Access Health Informa tion Online using Patient [employer] and [employer] Medical Indication:Encounter for annual general medical examination with abnormal findings in adult Start:02-May-2021 Instruction Type:Patient Education Patient Instructions Indication:Non-smoker Start:24-Apr-2021 Instruction Type:Provider Instructions for Treatment How to Access Health Informa tion Online using Patient Portal and [employer] Apps Indication:Non-smoker Start:24-Apr-2021 Instruction Type:Patient Education Patient Instructions Indication:Non-smoker Start:23-Jul-2020 Instruction Type:Provider Instructions for Treatment How to Access Health Informa tion Online using Patient Portal and [employer] Apps Indication:Non-smoker Start:23-Jul-2020 Instruction Type:Patient Education Patient Instructions Indication:BMI 25.0-25.9,adult Start:28-Jun-2020 Instruction Type:Provider Instructions for Treatment How to Access Health Informa tion Online using Patient Portal and [employer] Apps Indication:BMI 25.0-25.9,adult Start:28-Jun-2020 Instruction Type:Patient Education How to Access Health Informa tion Online using Patient Portal and [employer] Apps Indication:Non-smoker Start:12-Jun-2020 Instruction Type:Patient Education Patient Instructions Indication:Non-smoker Start:12-Jun-2020 Instruction Type:Provider Instructions for Treatment How to Access Health Informa tion Online using Patient Portal and [employer] Apps Indication:Non-smoker Start:10-May-2020 Instruction Type:Patient Education Patient Instructions Indication:Non-smoker Start:10-May-2020 Instruction Type:Provider Instructions for Treatment How to access health informa tion online Indication:Shingles of eyelid Start:12-Apr-2020 Instruction Type:Patient Education How to access health informa tion online - Detail Indication:Shingles of eyelid Start:12-Apr-2020 Instruction Type:Patient Education Patient Instructions Indication:Shingles of eyelid Start:12-Apr-2020 Instruction Type:Provider Instructions for Treatment How to access health informa tion online Indication:BMI 25.0-25.9,adult Start:15-Dec-2019 Instruction Type:Patient Education How to access health informa tion online - Detail Indication:BMI 25.0-25.9,adult Start:15-Dec-2019 Instruction Type:Patient Education Patient Instructions Indication:BMI 25.0-25.9,adult Start:15-Dec-2019 Instruction Type:Provider Instructions for Treatment cardiovascular counseling Indication:Hypertension, essential, benign Start:01-Dec-2019 Instruction Type:Provider Instructions for Treatment How to access health informa tion online Indication:Non-smoker Start:01-Dec-2019 Instruction Type:Patient Education How to access health informa tion online - Detail Indication:Non-smoker Start:01-Dec-2019 Instruction Type:Patient Education Patient Instructions Indication:Non-smoker Start:01-Dec-2019 Instruction Type:Provider Instructions for Treatment How to access health informa tion online Indication:Non-smoker Start:07-Nov-2019 Instruction Type:Patient Education How to access health informa tion online - Detail Indication:Non-smoker Start:07-Nov-2019 Instruction Type:Patient Education Patient Instructions Indication:Non-smoker Start:07-Nov-2019 Instruction Type:Provider Instructions for Treatment How to access health informa tion online Indication:Non-smoker Start:01-Nov-2019 Instruction Type:Patient Education How to access health informa tion online - Detail Indication:Non-smoker Start:01-Nov-2019 Instruction Type:Patient Education Patient Instructions Indication:Non-smoker Start:01-Nov-2019 Instruction Type:Provider Instructions for Treatment How to access health informa tion online Indication:Non-smoker Start:07-Apr-2019 Instruction Type:Patient Education How to access health informa tion online - Detail Indication:Non-smoker Start:07-Apr-2019 Instruction Type:Patient Education Patient Instructions Indication:Non-smoker Start:07-Apr-2019 Instruction Type:Provider Instructions for Treatment How to access health informa tion online Indication:Non-smoker Start:03-Feb-2019 Instruction Type:Patient Education How to access health informa tion online - Detail Indication:Non-smoker Start:03-Feb-2019 Instruction Type:Patient Education Patient Instructions Indication:Non-smoker Start:03-Feb-2019 Instruction Type:Provider Instructions for Treatment How to access health informa tion online Indication:Hypertension, essential, benign Start:30-Dec-2018 Instruction Type:Patient Education How to access health informa tion online - Detail Indication:Hypertension, essential, benign Start:30-Dec-2018 Instruction Type:Patient Education Patient Instructions Indication:Hypertension, essential, benign Start:30-Dec-2018 Instruction Type:Provider Instructions for Treatment How to access health informa tion online Indication:BMI 26.0-26.9,adult Start:15-Dec-2016 Instruction Type:Patient Education How to access health informa tion online - Detail Indication:BMI 26.0-26.9,adult Start:15-Dec-2016 Instruction Type:Patient Education Patient Instructions Indication:BMI 26.0-26.9,adult Start:15-Dec-2016 Instruction Type:Provider Instructions for Treatment Patient Instructions Indication:Depression Start:26-Feb-2016 Instruction Type:Provider Instructions for Treatment How to access health informa tion online Indication:Medicare annual wellness visit, initial Start:20-Dec-2015 Instruction Type:Patient Education How to access health informa tion online - Detail Indication:Medicare annual wellness visit, initial Start:20-Dec-2015 Instruction Type:Patient Education Patient Instructions Indication:Medicare annual wellness visit, initial Start:20-Dec-2015 Instruction Type:Provider Instructions for Treatment How to access health informa tion online Indication:Depression Start:18-Oct-2015 Instruction Type:Patient Education How to access health informa tion online - Detail Indication:Depression Start:18-Oct-2015 Instruction Type:Patient Education Patient Instructions Indication:Depression Start:18-Oct-2015 Instruction Type:Provider Instructions for Treatment How to access health informa tion online Indication:Depression Start:18-Apr-2015 Instruction Type:Patient Education How to access health informa tion online - Detail Indication:Depression Start:18-Apr-2015 Instruction Type:Patient Education Patient Instructions Indication:Depression Start:18-Apr-2015 Instruction Type:Provider Instructions for Treatment How to access health informa tion online Indication:Depression Start:11-Oct-2014 Instruction Type:Patient Education How to access health informa tion online - Detail Indication:Depression Start:11-Oct-2014 Instruction Type:Patient Education Patient Instructions Indication:Depression Start:11-Oct-2014 Instruction Type:Provider Instructions for Treatment Patient Instructions Indication:Depression Start:19-Apr-2014 Instruction Type:Provider Instructions for Treatment Patient Instructions Indication:Hypertension, essential, benign Start:04-Oct-2013 Instruction Type:Provider Instructions for Treatment Patient Instructions Indication:Hypertension, essential, benign Start:15-Jun-2013 Instruction Type:Provider Instructions for Treatment Patient Instructions Indication:Hypertension, essential, benign Start:30-May-2013 Instruction Type:Provider Instructions for Treatment Patient Instructions Indication:Hypothyroidism Start:09-Mar-2013 Instruction Type:Provider Instructions for Treatment Patient Instructions Indication:Depression Start:10-Sep-2012 Instruction Type:Provider Instructions for Treatment [facility]; [facility] Work Phone: Instructions* Name Dates Details Patient Instructions Indication:BMI 26.0-26.9,adult Start:20-May-2021 Instruction Type:Provider Instructions for Treatment How to Access Health Informa tion Online using Patient Portal and [employer] Apps Indication:BMI 26.0-26.9,adult Start:20-May-2021 Instruction Type:Patient Education Patient Instructions Indication:Encounter for annual general medical examination with abnormal findings in adult Start:02-May-2021 Instruction Type:Provider Instructions for Treatment How to Access Health Informa tion Online using Patient Portal and [employer] Apps Indication:Encounter for annual general medical examination with abnormal findings in adult Start:02-May-2021 Instruction Type:Patient Education Patient Instructions Indication:Non-smoker Start:24-Apr-2021 Instruction Type:Provider Instructions for Treatment How to Access Health Informa tion Online using Patient Portal and [employer] Apps Indication:Non-smoker Start:24-Apr-2021 Instruction Type:Patient Education Patient Instructions Indication:Non-smoker Start:23-Jul-2020 Instruction Type:Provider Instructions for Treatment How to Access Health Informa tion Online using Patient Portal and [employer] Apps Indication:Non-smoker Start:23-Jul-2020 Instruction Type:Patient Education Patient Instructions Indication:BMI 25.0-25.9,adult Start:28-Jun-2020 Instruction Type:Provider Instructions for Treatment How to Access Health Informa tion Online using Patient Portal and [employer] Indication:BMI 25.0-25.9,adult Start:28-Jun-2020 Instruction Type:Patient Education How to Access Health Informa tion Online using Patient Portal and [employer] Apps Indication:Non-smoker Start:12-Jun-2020 Instruction Type:Patient Education Patient Instructions Indication:Non-smoker Start:12-Jun-2020 Instruction Type:Provider Instructions for Treatment How to Access Health Informa tion Online using Patient Portal and [employer] Apps Indication:Non-smoker Start:10-May-2020 Instruction Type:Patient Education Patient Instructions Indication:Non-smoker Start:10-May-2020 Instruction Type:Provider Instructions for Treatment How to access health informa tion online Indication:Shingles of eyelid Start:12-Apr-2020 Instruction Type:Patient Education How to access health informa tion online - Detail Indication:Shingles of eyelid Start:12-Apr-2020 Instruction Type:Patient Education Patient Instructions Indication:Shingles of eyelid Start:12-Apr-2020 Instruction Type:Provider Instructions for Treatment How to access health informa tion online Indication:BMI 25.0-25.9,adult Start:15-Dec-2019 Instruction Type:Patient Education How to access health informa tion online - Detail Indication:BMI 25.0-25.9,adult Start:15-Dec-2019 Instruction Type:Patient Education Patient Instructions Indication:BMI 25.0-25.9,adult Start:15-Dec-2019 Instruction Type:Provider Instructions for Treatment cardiovascular counseling Indication:Hypertension, essential, benign Start:01-Dec-2019 Instruction Type:Provider Instructions for Treatment How to access health informa tion online Indication:Non-smoker Start:01-Dec-2019 Instruction Type:Patient Education How to access health informa tion online - Detail Indication:Non-smoker Start:01-Dec-2019 Instruction Type:Patient Education Patient Instructions Indication:Non-smoker Start:01-Dec-2019 Instruction Type:Provider Instructions for Treatment How to access health informa tion online Indication:Non-smoker Start:07-Nov-2019 Instruction Type:Patient Education How to access health informa tion online - Detail Indication:Non-smoker Start:07-Nov-2019 Instruction Type:Patient Education Patient Instructions Indication:Non-smoker Start:07-Nov-2019 Instruction Type:Provider Instructions for Treatment How to access health informa tion online Indication:Non-smoker Start:01-Nov-2019 Instruction Type:Patient Education How to access health informa tion online - Detail Indication:Non-smoker Start:01-Nov-2019 Instruction Type:Patient Education Patient Instructions Indication:Non-smoker Start:01-Nov-2019 Instruction Type:Provider Instructions for Treatment How to access health informa tion online Indication:Non-smoker Start:07-Apr-2019 Instruction Type:Patient Education How to access health informa tion online - Detail Indication:Non-smoker Start:07-Apr-2019 Instruction Type:Patient Education Patient Instructions Indication:Non-smoker Start:07-Apr-2019 Instruction Type:Provider Instructions for Treatment How to access health informa tion online Indication:Non-smoker Start:03-Feb-2019 Instruction Type:Patient Education How to access health informa tion online - Detail Indication:Non-smoker Start:03-Feb-2019 Instruction Type:Patient Education Patient Instructions Indication:Non-smoker Start:03-Feb-2019 Instruction Type:Provider Instructions for Treatment How to access health informa tion online Indication:Hypertension, essential, benign Start:30-Dec-2018 Instruction Type:Patient Education How to access health informa tion online - Detail Indication:Hypertension, essential, benign Start:30-Dec-2018 Instruction Type:Patient Education Patient Instructions Indication:Hypertension, essential, benign Start:30-Dec-2018 Instruction Type:Provider Instructions for Treatment How to access health informa tion online Indication:BMI 26.0-26.9,adult Start:15-Dec-2016 Instruction Type:Patient Education How to access health informa tion online - Detail Indication:BMI 26.0-26.9,adult Start:15-Dec-2016 Instruction Type:Patient Education Patient Instructions Indication:BMI 26.0-26.9,adult Start:15-Dec-2016 Instruction Type:Provider Instructions for Treatment Patient Instructions Indication:Depression Start:26-Feb-2016 Instruction Type:Provider Instructions for Treatment How to access health informa tion online Indication:Medicare annual wellness visit, initial Start:20-Dec-2015 Instruction Type:Patient Education How to access health informa tion online - Detail Indication:Medicare annual wellness visit, initial Start:20-Dec-2015 Instruction Type:Patient Education Patient Instructions Indication:Medicare annual wellness visit, initial Start:20-Dec-2015 Instruction Type:Provider Instructions for Treatment How to access health informa tion online Indication:Depression Start:18-Oct-2015 Instruction Type:Patient Education How to access health informa tion online - Detail Indication:Depression Start:18-Oct-2015 Instruction Type:Patient Education Patient Instructions Indication:Depression Start:18-Oct-2015 Instruction Type:Provider Instructions for Treatment How to access health informa tion online Indication:Depression Start:18-Apr-2015 Instruction Type:Patient Education How to access health informa tion online - Detail Indication:Depression Start:18-Apr-2015 Instruction Type:Patient Education Patient Instructions Indication:Depression Start:18-Apr-2015 Instruction Type:Provider Instructions for Treatment How to access health informa tion online Indication:Depression Start:11-Oct-2014 Instruction Type:Patient Education How to access health informa tion online - Detail Indication:Depression Start:11-Oct-2014 Instruction Type:Patient Education Patient Instructions Indication:Depression Start:11-Oct-2014 Instruction Type:Provider Instructions for Treatment Patient Instructions Indication:Depression Start:19-Apr-2014 Instruction Type:Provider Instructions for Treatment Patient Instructions Indication:Hypertension, essential, benign Start:04-Oct-2013 Instruction Type:Provider Instructions for Treatment Patient Instructions Indication:Hypertension, essential, benign Start:15-Jun-2013 Instruction Type:Provider Instructions for Treatment Patient Instructions Indication:Hypertension, essential, benign Start:30-May-2013 Instruction Type:Provider Instructions for Treatment Patient Instructions Indication:Hypothyroidism Start:09-Mar-2013 Instruction Type:Provider Instructions for Treatment Patient Instructions Indication:Depression Start:10-Sep-2012 Instruction Type:Provider Instructions for Treatment [facility]; [facility] Work Phone: Instructions* Name Dates Details Patient Instructions Indication:BMI 26.0-26.9,adult Start:20-May-2021 Instruction Type:Provider Instructions for Treatment How to Access Health Informa tion Online using Patient Portal and [employer] Indication:BMI 26.0-26.9,adult Start:20-May-2021 Instruction Type:Patient Education Patient Instructions Indication:Encounter for annual general medical examination with abnormal findings in adult Start:02-May-2021 Instruction Type:Provider Instructions for Treatment How to Access Health Informa tion Online using Patient Portal and [employer] Indication:Encounter for annual general medical examination with abnormal findings in adult Start:02-May-2021 Instruction Type:Patient Education Patient Instructions Indication:Non-smoker Start:24-Apr-2021 Instruction Type:Provider Instructions for Treatment How to Access Health Informa tion Online using Patient Portal and [employer] Indication:Non-smoker Start:24-Apr-2021 Instruction Type:Patient Education Patient Instructions Indication:Non-smoker Start:23-Jul-2020 Instruction Type:Provider Instructions for Treatment How to Access Health Informa tion Online using Patient Portal and [employer] Indication:Non-smoker Start:23-Jul-2020 Instruction Type:Patient Education Patient Instructions Indication:BMI 25.0-25.9,adult Start:28-Jun-2020 Instruction Type:Provider Instructions for Treatment How to Access Health Informa tion Online using Patient Portal and [employer] Indication:BMI 25.0-25.9,adult Start:28-Jun-2020 Instruction Type:Patient Education How to Access Health Informa tion Online using Patient Portal and [employer] Indication:Non-smoker Start:12-Jun-2020 Instruction Type:Patient Education Patient Instructions Indication:Non-smoker Start:12-Jun-2020 Instruction Type:Provider Instructions for Treatment How to Access Health Informa tion Online using Patient Portal and [employer] Indication:Non-smoker Start:10-May-2020 Instruction Type:Patient Education Patient Instructions Indication:Non-smoker Start:10-May-2020 Instruction Type:Provider Instructions for Treatment How to access health informa tion online Indication:Shingles of eyelid Start:12-Apr-2020 Instruction Type:Patient Education How to access health informa tion online - Detail Indication:Shingles of eyelid Start:12-Apr-2020 Instruction Type:Patient Education Patient Instructions Indication:Shingles of eyelid Start:12-Apr-2020 Instruction Type:Provider Instructions for Treatment How to access health informa tion online Indication:BMI 25.0-25.9,adult Start:15-Dec-2019 Instruction Type:Patient Education How to access health informa tion online - Detail Indication:BMI 25.0-25.9,adult Start:15-Dec-2019 Instruction Type:Patient Education Patient Instructions Indication:BMI 25.0-25.9,adult Start:15-Dec-2019 Instruction Type:Provider Instructions for Treatment cardiovascular counseling Indication:Hypertension, essential, benign Start:01-Dec-2019 Instruction Type:Provider Instructions for Treatment How to access health informa tion online Indication:Non-smoker Start:01-Dec-2019 Instruction Type:Patient Education How to access health informa tion online - Detail Indication:Non-smoker Start:01-Dec-2019 Instruction Type:Patient Education Patient Instructions Indication:Non-smoker Start:01-Dec-2019 Instruction Type:Provider Instructions for Treatment How to access health informa tion online Indication:Non-smoker Start:07-Nov-2019 Instruction Type:Patient Education How to access health informa tion online - Detail Indication:Non-smoker Start:07-Nov-2019 Instruction Type:Patient Education Patient Instructions Indication:Non-smoker Start:07-Nov-2019 Instruction Type:Provider Instructions for Treatment How to access health informa tion online Indication:Non-smoker Start:01-Nov-2019 Instruction Type:Patient Education How to access health informa tion online - Detail Indication:Non-smoker Start:01-Nov-2019 Instruction Type:Patient Education Patient Instructions Indication:Non-smoker Start:01-Nov-2019 Instruction Type:Provider Instructions for Treatment How to access health informa tion online Indication:Non-smoker Start:07-Apr-2019 Instruction Type:Patient Education How to access health informa tion online - Detail Indication:Non-smoker Start:07-Apr-2019 Instruction Type:Patient Education Patient Instructions Indication:Non-smoker Start:07-Apr-2019 Instruction Type:Provider Instructions for Treatment How to access health informa tion online Indication:Non-smoker Start:03-Feb-2019 Instruction Type:Patient Education How to access health informa tion online - Detail Indication:Non-smoker Start:03-Feb-2019 Instruction Type:Patient Education Patient Instructions Indication:Non-smoker Start:03-Feb-2019 Instruction Type:Provider Instructions for Treatment How to access health informa tion online Indication:Hypertension, essential, benign Start:30-Dec-2018 Instruction Type:Patient Education How to access health informa tion online - Detail Indication:Hypertension, essential, benign Start:30-Dec-2018 Instruction Type:Patient Education Patient Instructions Indication:Hypertension, essential, benign Start:30-Dec-2018 Instruction Type:Provider Instructions for Treatment How to access health informa tion online Indication:BMI 26.0-26.9,adult Start:15-Dec-2016 Instruction Type:Patient Education How to access health informa tion online - Detail Indication:BMI 26.0-26.9,adult Start:15-Dec-2016 Instruction Type:Patient Education Patient Instructions Indication:BMI 26.0-26.9,adult Start:15-Dec-2016 Instruction Type:Provider Instructions for Treatment Patient Instructions Indication:Depression Start:26-Feb-2016 Instruction Type:Provider Instructions for Treatment How to access health informa tion online Indication:Medicare annual wellness visit, initial Start:20-Dec-2015 Instruction Type:Patient Education How to access health informa tion online - Detail Indication:Medicare annual wellness visit, initial Start:20-Dec-2015 Instruction Type:Patient Education Patient Instructions Indication:Medicare annual wellness visit, initial Start:20-Dec-2015 Instruction Type:Provider Instructions for Treatment How to access health informa tion online Indication:Depression Start:18-Oct-2015 Instruction Type:Patient Education How to access health informa tion online - Detail Indication:Depression Start:18-Oct-2015 Instruction Type:Patient Education Patient Instructions Indication:Depression Start:18-Oct-2015 Instruction Type:Provider Instructions for Treatment How to access health informa tion online Indication:Depression Start:18-Apr-2015 Instruction Type:Patient Education How to access health informa tion online - Detail Indication:Depression Start:18-Apr-2015 Instruction Type:Patient Education Patient Instructions Indication:Depression Start:18-Apr-2015 Instruction Type:Provider Instructions for Treatment How to access health informa tion online Indication:Depression Start:11-Oct-2014 Instruction Type:Patient Education How to access health informa tion online - Detail Indication:Depression Start:11-Oct-2014 Instruction Type:Patient Education Patient Instructions Indication:Depression Start:11-Oct-2014 Instruction Type:Provider Instructions for Treatment Patient Instructions Indication:Depression Start:19-Apr-2014 Instruction Type:Provider Instructions for Treatment Patient Instructions Indication:Hypertension, essential, benign Start:04-Oct-2013 Instruction Type:Provider Instructions for Treatment Patient Instructions Indication:Hypertension, essential, benign Start:15-Jun-2013 Instruction Type:Provider Instructions for Treatment Patient Instructions Indication:Hypertension, essential, benign Start:30-May-2013 Instruction Type:Provider Instructions for Treatment Patient Instructions Indication:Hypothyroidism Start:09-Mar-2013 Instruction Type:Provider Instructions for Treatment Patient Instructions Indication:Depression Start:10-Sep-2012 Instruction Type:Provider Instructions for Treatment [facility]; [facility] Work Phone: Instructions* Name Dates Details Patient Instructions Indication:BMI 26.0-26.9,adult Start:20-May-2021 Instruction Type:Provider Instructions for Treatment How to Access Health Informa tion Online using Patient Portal and [employer] Indication:BMI 26.0-26.9,adult Start:20-May-2021 Instruction Type:Patient Education Patient Instructions Indication:Encounter for annual general medical examination with abnormal findings in adult Start:02-May-2021 Instruction Type:Provider Instructions for Treatment How to Access Health Informa tion Online using Patient Portal and [employer] Indication:Encounter for annual general medical examination with abnormal findings in adult Start:02-May-2021 Instruction Type:Patient Education Patient Instructions Indication:Non-smoker Start:24-Apr-2021 Instruction Type:Provider Instructions for Treatment How to Access Health Informa tion Online using Patient Portal and [employer] Indication:Non-smoker Start:24-Apr-2021 Instruction Type:Patient Education Patient Instructions Indication:Non-smoker Start:23-Jul-2020 Instruction Type:Provider Instructions for Treatment How to Access Health Informa tion Online using Patient Portal and [employer] Indication:Non-smoker Start:23-Jul-2020 Instruction Type:Patient Education Patient Instructions Indication:BMI 25.0-25.9,adult Start:28-Jun-2020 Instruction Type:Provider Instructions for Treatment How to Access Health Informa tion Online using Patient Portal and [employer] Indication:BMI 25.0-25.9,adult Start:28-Jun-2020 Instruction Type:Patient Education How to Access Health Informa tion Online using Patient Portal and [employer] Indication:Non-smoker Start:12-Jun-2020 Instruction Type:Patient Education Patient Instructions Indication:Non-smoker Start:12-Jun-2020 Instruction Type:Provider Instructions for Treatment How to Access Health Informa tion Online using Patient Portal and [employer] Indication:Non-smoker Start:10-May-2020 Instruction Type:Patient Education Patient Instructions Indication:Non-smoker Start:10-May-2020 Instruction Type:Provider Instructions for Treatment How to access health informa tion online Indication:Shingles of eyelid Start:12-Apr-2020 Instruction Type:Patient Education How to access health informa tion online - Detail Indication:Shingles of eyelid Start:12-Apr-2020 Instruction Type:Patient Education Patient Instructions Indication:Shingles of eyelid Start:12-Apr-2020 Instruction Type:Provider Instructions for Treatment How to access health informa tion online Indication:BMI 25.0-25.9,adult Start:15-Dec-2019 Instruction Type:Patient Education How to access health informa tion online - Detail Indication:BMI 25.0-25.9,adult Start:15-Dec-2019 Instruction Type:Patient Education Patient Instructions Indication:BMI 25.0-25.9,adult Start:15-Dec-2019 Instruction Type:Provider Instructions for Treatment cardiovascular counseling Indication:Hypertension, essential, benign Start:01-Dec-2019 Instruction Type:Provider Instructions for Treatment How to access health informa tion online Indication:Non-smoker Start:01-Dec-2019 Instruction Type:Patient Education How to access health informa tion online - Detail Indication:Non-smoker Start:01-Dec-2019 Instruction Type:Patient Education Patient Instructions Indication:Non-smoker Start:01-Dec-2019 Instruction Type:Provider Instructions for Treatment How to access health informa tion online Indication:Non-smoker Start:07-Nov-2019 Instruction Type:Patient Education How to access health informa tion online - Detail Indication:Non-smoker Start:07-Nov-2019 Instruction Type:Patient Education Patient Instructions Indication:Non-smoker Start:07-Nov-2019 Instruction Type:Provider Instructions for Treatment How to access health informa tion online Indication:Non-smoker Start:01-Nov-2019 Instruction Type:Patient Education How to access health informa tion online - Detail Indication:Non-smoker Start:01-Nov-2019 Instruction Type:Patient Education Patient Instructions Indication:Non-smoker Start:01-Nov-2019 Instruction Type:Provider Instructions for Treatment How to access health informa tion online Indication:Non-smoker Start:07-Apr-2019 Instruction Type:Patient Education How to access health informa tion online - Detail Indication:Non-smoker Start:07-Apr-2019 Instruction Type:Patient Education Patient Instructions Indication:Non-smoker Start:07-Apr-2019 Instruction Type:Provider Instructions for Treatment How to access health informa tion online Indication:Non-smoker Start:03-Feb-2019 Instruction Type:Patient Education How to access health informa tion online - Detail Indication:Non-smoker Start:03-Feb-2019 Instruction Type:Patient Education Patient Instructions Indication:Non-smoker Start:03-Feb-2019 Instruction Type:Provider Instructions for Treatment How to access health informa tion online Indication:Hypertension, essential, benign Start:30-Dec-2018 Instruction Type:Patient Education How to access health informa tion online - Detail Indication:Hypertension, essential, benign Start:30-Dec-2018 Instruction Type:Patient Education Patient Instructions Indication:Hypertension, essential, benign Start:30-Dec-2018 Instruction Type:Provider Instructions for Treatment How to access health informa tion online Indication:BMI 26.0-26.9,adult Start:15-Dec-2016 Instruction Type:Patient Education How to access health informa tion online - Detail Indication:BMI 26.0-26.9,adult Start:15-Dec-2016 Instruction Type:Patient Education Patient Instructions Indication:BMI 26.0-26.9,adult Start:15-Dec-2016 Instruction Type:Provider Instructions for Treatment Patient Instructions Indication:Depression Start:26-Feb-2016 Instruction Type:Provider Instructions for Treatment How to access health informa tion online Indication:Medicare annual wellness visit, initial Start:20-Dec-2015 Instruction Type:Patient Education How to access health informa tion online - Detail Indication:Medicare annual wellness visit, initial Start:20-Dec-2015 Instruction Type:Patient Education Patient Instructions Indication:Medicare annual wellness visit, initial Start:20-Dec-2015 Instruction Type:Provider Instructions for Treatment How to access health informa tion online Indication:Depression Start:18-Oct-2015 Instruction Type:Patient Education How to access health informa tion online - Detail Indication:Depression Start:18-Oct-2015 Instruction Type:Patient Education Patient Instructions Indication:Depression Start:18-Oct-2015 Instruction Type:Provider Instructions for Treatment How to access health informa tion online Indication:Depression Start:18-Apr-2015 Instruction Type:Patient Education How to access health informa tion online - Detail Indication:Depression Start:18-Apr-2015 Instruction Type:Patient Education Patient Instructions Indication:Depression Start:18-Apr-2015 Instruction Type:Provider Instructions for Treatment How to access health informa tion online Indication:Depression Start:11-Oct-2014 Instruction Type:Patient Education How to access health informa tion online - Detail Indication:Depression Start:11-Oct-2014 Instruction Type:Patient Education Patient Instructions Indication:Depression Start:11-Oct-2014 Instruction Type:Provider Instructions for Treatment Patient Instructions Indication:Depression Start:19-Apr-2014 Instruction Type:Provider Instructions for Treatment Patient Instructions Indication:Hypertension, essential, benign Start:04-Oct-2013 Instruction Type:Provider Instructions for Treatment Patient Instructions Indication:Hypertension, essential, benign Start:15-Jun-2013 Instruction Type:Provider Instructions for Treatment Patient Instructions Indication:Hypertension, essential, benign Start:30-May-2013 Instruction Type:Provider Instructions for Treatment Patient Instructions Indication:Hypothyroidism Start:09-Mar-2013 Instruction Type:Provider Instructions for Treatment Patient Instructions Indication:Depression Start:10-Sep-2012 Instruction Type:Provider Instructions for Treatment [facility]; [facility] Work Phone: Instructions* Name Dates Details Patient Instructions Indication:BMI 26.0-26.9,adult Start:20-May-2021 Instruction Type:Provider Instructions for Treatment How to Access Health Informa tion Online using Patient Portal and [employer] Apps Indication:BMI 26.0-26.9,adult Start:20-May-2021 Instruction Type:Patient Education Patient Instructions Indication:Encounter for annual general medical examination with abnormal findings in adult Start:02-May-2021 Instruction Type:Provider Instructions for Treatment How to Access Health Informa tion Online using Patient Portal and [employer] Apps Indication:Encounter for annual general medical examination with abnormal findings in adult Start:02-May-2021 Instruction Type:Patient Education Patient Instructions Indication:Non-smoker Start:24-Apr-2021 Instruction Type:Provider Instructions for Treatment How to Access Health Informa tion Online using Patient Portal and [employer] Apps Indication:Non-smoker Start:24-Apr-2021 Instruction Type:Patient Education Patient Instructions Indication:Non-smoker Start:23-Jul-2020 Instruction Type:Provider Instructions for Treatment How to Access Health Informa tion Online using Patient Portal and [employer] Apps Indication:Non-smoker Start:23-Jul-2020 Instruction Type:Patient Education Patient Instructions Indication:BMI 25.0-25.9,adult Start:28-Jun-2020 Instruction Type:Provider Instructions for Treatment How to Access Health Informa tion Online using Patient Portal and [employer] Indication:BMI 25.0-25.9,adult Start:28-Jun-2020 Instruction Type:Patient Education How to Access Health Informa tion Online using Patient Portal and [employer] Apps Indication:Non-smoker Start:12-Jun-2020 Instruction Type:Patient Education Patient Instructions Indication:Non-smoker Start:12-Jun-2020 Instruction Type:Provider Instructions for Treatment How to Access Health Informa tion Online using Patient Portal and [employer] Apps Indication:Non-smoker Start:10-May-2020 Instruction Type:Patient Education Patient Instructions Indication:Non-smoker Start:10-May-2020 Instruction Type:Provider Instructions for Treatment How to access health informa tion online Indication:Shingles of eyelid Start:12-Apr-2020 Instruction Type:Patient Education How to access health informa tion online - Detail Indication:Shingles of eyelid Start:12-Apr-2020 Instruction Type:Patient Education Patient Instructions Indication:Shingles of eyelid Start:12-Apr-2020 Instruction Type:Provider Instructions for Treatment How to access health informa tion online Indication:BMI 25.0-25.9,adult Start:15-Dec-2019 Instruction Type:Patient Education How to access health informa tion online - Detail Indication:BMI 25.0-25.9,adult Start:15-Dec-2019 Instruction Type:Patient Education Patient Instructions Indication:BMI 25.0-25.9,adult Start:15-Dec-2019 Instruction Type:Provider Instructions for Treatment cardiovascular counseling Indication:Hypertension, essential, benign Start:01-Dec-2019 Instruction Type:Provider Instructions for Treatment How to access health informa tion online Indication:Non-smoker Start:01-Dec-2019 Instruction Type:Patient Education How to access health informa tion online - Detail Indication:Non-smoker Start:01-Dec-2019 Instruction Type:Patient Education Patient Instructions Indication:Non-smoker Start:01-Dec-2019 Instruction Type:Provider Instructions for Treatment How to access health informa tion online Indication:Non-smoker Start:07-Nov-2019 Instruction Type:Patient Education How to access health informa tion online - Detail Indication:Non-smoker Start:07-Nov-2019 Instruction Type:Patient Education Patient Instructions Indication:Non-smoker Start:07-Nov-2019 Instruction Type:Provider Instructions for Treatment How to access health informa tion online Indication:Non-smoker Start:01-Nov-2019 Instruction Type:Patient Education How to access health informa tion online - Detail Indication:Non-smoker Start:01-Nov-2019 Instruction Type:Patient Education Patient Instructions Indication:Non-smoker Start:01-Nov-2019 Instruction Type:Provider Instructions for Treatment How to access health informa tion online Indication:Non-smoker Start:07-Apr-2019 Instruction Type:Patient Education How to access health informa tion online - Detail Indication:Non-smoker Start:07-Apr-2019 Instruction Type:Patient Education Patient Instructions Indication:Non-smoker Start:07-Apr-2019 Instruction Type:Provider Instructions for Treatment How to access health informa tion online Indication:Non-smoker Start:03-Feb-2019 Instruction Type:Patient Education How to access health informa tion online - Detail Indication:Non-smoker Start:03-Feb-2019 Instruction Type:Patient Education Patient Instructions Indication:Non-smoker Start:03-Feb-2019 Instruction Type:Provider Instructions for Treatment How to access health informa tion online Indication:Hypertension, essential, benign Start:30-Dec-2018 Instruction Type:Patient Education How to access health informa tion online - Detail Indication:Hypertension, essential, benign Start:30-Dec-2018 Instruction Type:Patient Education Patient Instructions Indication:Hypertension, essential, benign Start:30-Dec-2018 Instruction Type:Provider Instructions for Treatment How to access health informa tion online Indication:BMI 26.0-26.9,adult Start:15-Dec-2016 Instruction Type:Patient Education How to access health informa tion online - Detail Indication:BMI 26.0-26.9,adult Start:15-Dec-2016 Instruction Type:Patient Education Patient Instructions Indication:BMI 26.0-26.9,adult Start:15-Dec-2016 Instruction Type:Provider Instructions for Treatment Patient Instructions Indication:Depression Start:26-Feb-2016 Instruction Type:Provider Instructions for Treatment How to access health informa tion online Indication:Medicare annual wellness visit, initial Start:20-Dec-2015 Instruction Type:Patient Education How to access health informa tion online - Detail Indication:Medicare annual wellness visit, initial Start:20-Dec-2015 Instruction Type:Patient Education Patient Instructions Indication:Medicare annual wellness visit, initial Start:20-Dec-2015 Instruction Type:Provider Instructions for Treatment How to access health informa tion online Indication:Depression Start:18-Oct-2015 Instruction Type:Patient Education How to access health informa tion online - Detail Indication:Depression Start:18-Oct-2015 Instruction Type:Patient Education Patient Instructions Indication:Depression Start:18-Oct-2015 Instruction Type:Provider Instructions for Treatment How to access health informa tion online Indication:Depression Start:18-Apr-2015 Instruction Type:Patient Education How to access health informa tion online - Detail Indication:Depression Start:18-Apr-2015 Instruction Type:Patient Education Patient Instructions Indication:Depression Start:18-Apr-2015 Instruction Type:Provider Instructions for Treatment How to access health informa tion online Indication:Depression Start:11-Oct-2014 Instruction Type:Patient Education How to access health informa tion online - Detail Indication:Depression Start:11-Oct-2014 Instruction Type:Patient Education Patient Instructions Indication:Depression Start:11-Oct-2014 Instruction Type:Provider Instructions for Treatment Patient Instructions Indication:Depression Start:19-Apr-2014 Instruction Type:Provider Instructions for Treatment Patient Instructions Indication:Hypertension, essential, benign Start:04-Oct-2013 Instruction Type:Provider Instructions for Treatment Patient Instructions Indication:Hypertension, essential, benign Start:15-Jun-2013 Instruction Type:Provider Instructions for Treatment Patient Instructions Indication:Hypertension, essential, benign Start:30-May-2013 Instruction Type:Provider Instructions for Treatment Patient Instructions Indication:Hypothyroidism Start:09-Mar-2013 Instruction Type:Provider Instructions for Treatment Patient Instructions Indication:Depression Start:10-Sep-2012 Instruction Type:Provider Instructions for Treatment [facility]; [facility] Work Phone: Instructions* Name Dates Details Patient Instructions Indication:BMI 26.0-26.9,adult Start:20-May-2021 Instruction Type:Provider Instructions for Treatment How to Access Health Informa tion Online using Patient Portal and [employer] Indication:BMI 26.0-26.9,adult Start:20-May-2021 Instruction Type:Patient Education Patient Instructions Indication:Encounter for annual general medical examination with abnormal findings in adult Start:02-May-2021 Instruction Type:Provider Instructions for Treatment How to Access Health Informa tion Online using Patient Portal and [employer] Indication:Encounter for annual general medical examination with abnormal findings in adult Start:02-May-2021 Instruction Type:Patient Education Patient Instructions Indication:Non-smoker Start:24-Apr-2021 Instruction Type:Provider Instructions for Treatment How to Access Health Informa tion Online using Patient Portal and [employer] Indication:Non-smoker Start:24-Apr-2021 Instruction Type:Patient Education Patient Instructions Indication:Non-smoker Start:23-Jul-2020 Instruction Type:Provider Instructions for Treatment How to Access Health Informa tion Online using Patient Portal and [employer] Apps Indication:Non-smoker Start:23-Jul-2020 Instruction Type:Patient Education Patient Instructions Indication:BMI 25.0-25.9,adult Start:28-Jun-2020 Instruction Type:Provider Instructions for Treatment How to Access Health Informa tion Online using Patient Portal and [employer] Apps Indication:BMI 25.0-25.9,adult Start:28-Jun-2020 Instruction Type:Patient Education How to Access Health Informa tion Online using Patient Portal and [employer] Apps Indication:Non-smoker Start:12-Jun-2020 Instruction Type:Patient Education Patient Instructions Indication:Non-smoker Start:12-Jun-2020 Instruction Type:Provider Instructions for Treatment How to Access Health Informa tion Online using Patient Portal and [employer] Apps Indication:Non-smoker Start:10-May-2020 Instruction Type:Patient Education Patient Instructions Indication:Non-smoker Start:10-May-2020 Instruction Type:Provider Instructions for Treatment How to access health informa tion online Indication:Shingles of eyelid Start:12-Apr-2020 Instruction Type:Patient Education How to access health informa tion online - Detail Indication:Shingles of eyelid Start:12-Apr-2020 Instruction Type:Patient Education Patient Instructions Indication:Shingles of eyelid Start:12-Apr-2020 Instruction Type:Provider Instructions for Treatment How to access health informa tion online Indication:BMI 25.0-25.9,adult Start:15-Dec-2019 Instruction Type:Patient Education How to access health informa tion online - Detail Indication:BMI 25.0-25.9,adult Start:15-Dec-2019 Instruction Type:Patient Education Patient Instructions Indication:BMI 25.0-25.9,adult Start:15-Dec-2019 Instruction Type:Provider Instructions for Treatment cardiovascular counseling Indication:Hypertension, essential, benign Start:01-Dec-2019 Instruction Type:Provider Instructions for Treatment How to access health informa tion online Indication:Non-smoker Start:01-Dec-2019 Instruction Type:Patient Education How to access health informa tion online - Detail Indication:Non-smoker Start:01-Dec-2019 Instruction Type:Patient Education Patient Instructions Indication:Non-smoker Start:01-Dec-2019 Instruction Type:Provider Instructions for Treatment How to access health informa tion online Indication:Non-smoker Start:07-Nov-2019 Instruction Type:Patient Education How to access health informa tion online - Detail Indication:Non-smoker Start:07-Nov-2019 Instruction Type:Patient Education Patient Instructions Indication:Non-smoker Start:07-Nov-2019 Instruction Type:Provider Instructions for Treatment How to access health informa tion online Indication:Non-smoker Start:01-Nov-2019 Instruction Type:Patient Education How to access health informa tion online - Detail Indication:Non-smoker Start:01-Nov-2019 Instruction Type:Patient Education Patient Instructions Indication:Non-smoker Start:01-Nov-2019 Instruction Type:Provider Instructions for Treatment How to access health informa tion online Indication:Non-smoker Start:07-Apr-2019 Instruction Type:Patient Education How to access health informa tion online - Detail Indication:Non-smoker Start:07-Apr-2019 Instruction Type:Patient Education Patient Instructions Indication:Non-smoker Start:07-Apr-2019 Instruction Type:Provider Instructions for Treatment How to access health informa tion online Indication:Non-smoker Start:03-Feb-2019 Instruction Type:Patient Education How to access health informa tion online - Detail Indication:Non-smoker Start:03-Feb-2019 Instruction Type:Patient Education Patient Instructions Indication:Non-smoker Start:03-Feb-2019 Instruction Type:Provider Instructions for Treatment How to access health informa tion online Indication:Hypertension, essential, benign Start:30-Dec-2018 Instruction Type:Patient Education How to access health informa tion online - Detail Indication:Hypertension, essential, benign Start:30-Dec-2018 Instruction Type:Patient Education Patient Instructions Indication:Hypertension, essential, benign Start:30-Dec-2018 Instruction Type:Provider Instructions for Treatment How to access health informa tion online Indication:BMI 26.0-26.9,adult Start:15-Dec-2016 Instruction Type:Patient Education How to access health informa tion online - Detail Indication:BMI 26.0-26.9,adult Start:15-Dec-2016 Instruction Type:Patient Education Patient Instructions Indication:BMI 26.0-26.9,adult Start:15-Dec-2016 Instruction Type:Provider Instructions for Treatment Patient Instructions Indication:Depression Start:26-Feb-2016 Instruction Type:Provider Instructions for Treatment How to access health informa tion online Indication:Medicare annual wellness visit, initial Start:20-Dec-2015 Instruction Type:Patient Education How to access health informa tion online - Detail Indication:Medicare annual wellness visit, initial Start:20-Dec-2015 Instruction Type:Patient Education Patient Instructions Indication:Medicare annual wellness visit, initial Start:20-Dec-2015 Instruction Type:Provider Instructions for Treatment How to access health informa tion online Indication:Depression Start:18-Oct-2015 Instruction Type:Patient Education How to access health informa tion online - Detail Indication:Depression Start:18-Oct-2015 Instruction Type:Patient Education Patient Instructions Indication:Depression Start:18-Oct-2015 Instruction Type:Provider Instructions for Treatment How to access health informa tion online Indication:Depression Start:18-Apr-2015 Instruction Type:Patient Education How to access health informa tion online - Detail Indication:Depression Start:18-Apr-2015 Instruction Type:Patient Education Patient Instructions Indication:Depression Start:18-Apr-2015 Instruction Type:Provider Instructions for Treatment How to access health informa tion online Indication:Depression Start:11-Oct-2014 Instruction Type:Patient Education How to access health informa tion online - Detail Indication:Depression Start:11-Oct-2014 Instruction Type:Patient Education Patient Instructions Indication:Depression Start:11-Oct-2014 Instruction Type:Provider Instructions for Treatment Patient Instructions Indication:Depression Start:19-Apr-2014 Instruction Type:Provider Instructions for Treatment Patient Instructions Indication:Hypertension, essential, benign Start:04-Oct-2013 Instruction Type:Provider Instructions for Treatment Patient Instructions Indication:Hypertension, essential, benign Start:15-Jun-2013 Instruction Type:Provider Instructions for Treatment Patient Instructions Indication:Hypertension, essential, benign Start:30-May-2013 Instruction Type:Provider Instructions for Treatment Patient Instructions Indication:Hypothyroidism Start:09-Mar-2013 Instruction Type:Provider Instructions for Treatment Patient Instructions Indication:Depression Start:10-Sep-2012 Instruction Type:Provider Instructions for Treatment [facility]; [facility] Work Phone: Instructions* Name Dates Details Patient Instructions Indication:BMI 27.0-27.9,adult Start:13-Mar-2022 Instruction Type:Provider Instructions for Treatment How to Access Health Informa tion Online using Patient Portal and [employer] Indication:BMI 27.0-27.9,adult Start:13-Mar-2022 Instruction Type:Patient Education Patient Instructions Indication:BMI 26.0-26.9,adult Start:20-May-2021 Instruction Type:Provider Instructions for Treatment How to Access Health Informa tion Online using Patient Portal and [employer] Indication:BMI 26.0-26.9,adult Start:20-May-2021 Instruction Type:Patient Education Patient Instructions Indication:Encounter for annual general medical examination with abnormal findings in adult Start:02-May-2021 Instruction Type:Provider Instructions for Treatment How to Access Health Informa tion Online using Patient Portal and [employer] Indication:Encounter for annual general medical examination with abnormal findings in adult Start:02-May-2021 Instruction Type:Patient Education Patient Instructions Indication:Non-smoker Start:24-Apr-2021 Instruction Type:Provider Instructions for Treatment How to Access Health Informa tion Online using Patient Portal and [employer] Indication:Non-smoker Start:24-Apr-2021 Instruction Type:Patient Education Patient Instructions Indication:Non-smoker Start:23-Jul-2020 Instruction Type:Provider Instructions for Treatment How to Access Health Informa tion Online using Patient Portal and [employer] Indication:Non-smoker Start:23-Jul-2020 Instruction Type:Patient Education Patient Instructions Indication:BMI 25.0-25.9,adult Start:28-Jun-2020 Instruction Type:Provider Instructions for Treatment How to Access Health Informa tion Online using Patient Portal and [employer] Indication:BMI 25.0-25.9,adult Start:28-Jun-2020 Instruction Type:Patient Education How to Access Health Informa tion Online using Patient Portal and [employer] Indication:Non-smoker Start:12-Jun-2020 Instruction Type:Patient Education Patient Instructions Indication:Non-smoker Start:12-Jun-2020 Instruction Type:Provider Instructions for Treatment How to Access Health Informa tion Online using Patient Portal and [employer] Indication:Non-smoker Start:10-May-2020 Instruction Type:Patient Education Patient Instructions Indication:Non-smoker Start:10-May-2020 Instruction Type:Provider Instructions for Treatment How to access health informa tion online Indication:Shingles of eyelid Start:12-Apr-2020 Instruction Type:Patient Education How to access health informa tion online - Detail Indication:Shingles of eyelid Start:12-Apr-2020 Instruction Type:Patient Education Patient Instructions Indication:Shingles of eyelid Start:12-Apr-2020 Instruction Type:Provider Instructions for Treatment How to access health informa tion online Indication:BMI 25.0-25.9,adult Start:15-Dec-2019 Instruction Type:Patient Education How to access health informa tion online - Detail Indication:BMI 25.0-25.9,adult Start:15-Dec-2019 Instruction Type:Patient Education Patient Instructions Indication:BMI 25.0-25.9,adult Start:15-Dec-2019 Instruction Type:Provider Instructions for Treatment cardiovascular counseling Indication:Hypertension, essential, benign Start:01-Dec-2019 Instruction Type:Provider Instructions for Treatment How to access health informa tion online Indication:Non-smoker Start:01-Dec-2019 Instruction Type:Patient Education How to access health informa tion online - Detail Indication:Non-smoker Start:01-Dec-2019 Instruction Type:Patient Education Patient Instructions Indication:Non-smoker Start:01-Dec-2019 Instruction Type:Provider Instructions for Treatment How to access health informa tion online Indication:Non-smoker Start:07-Nov-2019 Instruction Type:Patient Education How to access health informa tion online - Detail Indication:Non-smoker Start:07-Nov-2019 Instruction Type:Patient Education Patient Instructions Indication:Non-smoker Start:07-Nov-2019 Instruction Type:Provider Instructions for Treatment How to access health informa tion online Indication:Non-smoker Start:01-Nov-2019 Instruction Type:Patient Education How to access health informa tion online - Detail Indication:Non-smoker Start:01-Nov-2019 Instruction Type:Patient Education Patient Instructions Indication:Non-smoker Start:01-Nov-2019 Instruction Type:Provider Instructions for Treatment How to access health informa tion online Indication:Non-smoker Start:07-Apr-2019 Instruction Type:Patient Education How to access health informa tion online - Detail Indication:Non-smoker Start:07-Apr-2019 Instruction Type:Patient Education Patient Instructions Indication:Non-smoker Start:07-Apr-2019 Instruction Type:Provider Instructions for Treatment How to access health informa tion online Indication:Non-smoker Start:03-Feb-2019 Instruction Type:Patient Education How to access health informa tion online - Detail Indication:Non-smoker Start:03-Feb-2019 Instruction Type:Patient Education Patient Instructions Indication:Non-smoker Start:03-Feb-2019 Instruction Type:Provider Instructions for Treatment How to access health informa tion online Indication:Hypertension, essential, benign Start:30-Dec-2018 Instruction Type:Patient Education How to access health informa tion online - Detail Indication:Hypertension, essential, benign Start:30-Dec-2018 Instruction Type:Patient Education Patient Instructions Indication:Hypertension, essential, benign Start:30-Dec-2018 Instruction Type:Provider Instructions for Treatment How to access health informa tion online Indication:BMI 26.0-26.9,adult Start:15-Dec-2016 Instruction Type:Patient Education How to access health informa tion online - Detail Indication:BMI 26.0-26.9,adult Start:15-Dec-2016 Instruction Type:Patient Education Patient Instructions Indication:BMI 26.0-26.9,adult Start:15-Dec-2016 Instruction Type:Provider Instructions for Treatment Patient Instructions Indication:Depression Start:26-Feb-2016 Instruction Type:Provider Instructions for Treatment How to access health informa tion online Indication:Medicare annual wellness visit, initial Start:20-Dec-2015 Instruction Type:Patient Education How to access health informa tion online - Detail Indication:Medicare annual wellness visit, initial Start:20-Dec-2015 Instruction Type:Patient Education Patient Instructions Indication:Medicare annual wellness visit, initial Start:20-Dec-2015 Instruction Type:Provider Instructions for Treatment How to access health informa tion online Indication:Depression Start:18-Oct-2015 Instruction Type:Patient Education How to access health informa tion online - Detail Indication:Depression Start:18-Oct-2015 Instruction Type:Patient Education Patient Instructions Indication:Depression Start:18-Oct-2015 Instruction Type:Provider Instructions for Treatment How to access health informa tion online Indication:Depression Start:18-Apr-2015 Instruction Type:Patient Education How to access health informa tion online - Detail Indication:Depression Start:18-Apr-2015 Instruction Type:Patient Education Patient Instructions Indication:Depression Start:18-Apr-2015 Instruction Type:Provider Instructions for Treatment How to access health informa tion online Indication:Depression Start:11-Oct-2014 Instruction Type:Patient Education How to access health informa tion online - Detail Indication:Depression Start:11-Oct-2014 Instruction Type:Patient Education Patient Instructions Indication:Depression Start:11-Oct-2014 Instruction Type:Provider Instructions for Treatment Patient Instructions Indication:Depression Start:19-Apr-2014 Instruction Type:Provider Instructions for Treatment Patient Instructions Indication:Hypertension, essential, benign Start:04-Oct-2013 Instruction Type:Provider Instructions for Treatment Patient Instructions Indication:Hypertension, essential, benign Start:15-Jun-2013 Instruction Type:Provider Instructions for Treatment Patient Instructions Indication:Hypertension, essential, benign Start:30-May-2013 Instruction Type:Provider Instructions for Treatment Patient Instructions Indication:Hypothyroidism Start:09-Mar-2013 Instruction Type:Provider Instructions for Treatment Patient Instructions Indication:Depression Start:10-Sep-2012 Instruction Type:Provider Instructions for Treatment [facility]; [facility] Work Phone: Instructions* Name Dates Details Patient Instructions Indication:BMI 27.0-27.9,adult Start:13-Mar-2022 Instruction Type:Provider Instructions for Treatment How to Access Health Informa tion Online using Patient Portal and [employer] Apps Indication:BMI 27.0-27.9,adult Start:13-Mar-2022 Instruction Type:Patient Education Patient Instructions Indication:BMI 26.0-26.9,adult Start:20-May-2021 Instruction Type:Provider Instructions for Treatment How to Access Health Informa tion Online using Patient Portal and [employer] Apps Indication:BMI 26.0-26.9,adult Start:20-May-2021 Instruction Type:Patient Education Patient Instructions Indication:Encounter for annual general medical examination with abnormal findings in adult Start:02-May-2021 Instruction Type:Provider Instructions for Treatment How to Access Health Informa tion Online using Patient Portal and [employer] Apps Indication:Encounter for annual general medical examination with abnormal findings in adult Start:02-May-2021 Instruction Type:Patient Education Patient Instructions Indication:Non-smoker Start:24-Apr-2021 Instruction Type:Provider Instructions for Treatment How to Access Health Informa tion Online using Patient Portal and [employer] Apps Indication:Non-smoker Start:24-Apr-2021 Instruction Type:Patient Education Patient Instructions Indication:Non-smoker Start:23-Jul-2020 Instruction Type:Provider Instructions for Treatment How to Access Health Informa tion Online using Patient Portal and [employer] Apps Indication:Non-smoker Start:23-Jul-2020 Instruction Type:Patient Education Patient Instructions Indication:BMI 25.0-25.9,adult Start:28-Jun-2020 Instruction Type:Provider Instructions for Treatment How to Access Health Informa tion Online using Patient Portal and [employer] Apps Indication:BMI 25.0-25.9,adult Start:28-Jun-2020 Instruction Type:Patient Education How to Access Health Informa tion Online using Patient Portal and [employer] Apps Indication:Non-smoker Start:12-Jun-2020 Instruction Type:Patient Education Patient Instructions Indication:Non-smoker Start:12-Jun-2020 Instruction Type:Provider Instructions for Treatment How to Access Health Informa tion Online using Patient Portal and [employer] Apps Indication:Non-smoker Start:10-May-2020 Instruction Type:Patient Education Patient Instructions Indication:Non-smoker Start:10-May-2020 Instruction Type:Provider Instructions for Treatment How to access health informa tion online Indication:Shingles of eyelid Start:12-Apr-2020 Instruction Type:Patient Education How to access health informa tion online - Detail Indication:Shingles of eyelid Start:12-Apr-2020 Instruction Type:Patient Education Patient Instructions Indication:Shingles of eyelid Start:12-Apr-2020 Instruction Type:Provider Instructions for Treatment How to access health informa tion online Indication:BMI 25.0-25.9,adult Start:15-Dec-2019 Instruction Type:Patient Education How to access health informa tion online - Detail Indication:BMI 25.0-25.9,adult Start:15-Dec-2019 Instruction Type:Patient Education Patient Instructions Indication:BMI 25.0-25.9,adult Start:15-Dec-2019 Instruction Type:Provider Instructions for Treatment cardiovascular counseling Indication:Hypertension, essential, benign Start:01-Dec-2019 Instruction Type:Provider Instructions for Treatment How to access health informa tion online Indication:Non-smoker Start:01-Dec-2019 Instruction Type:Patient Education How to access health informa tion online - Detail Indication:Non-smoker Start:01-Dec-2019 Instruction Type:Patient Education Patient Instructions Indication:Non-smoker Start:01-Dec-2019 Instruction Type:Provider Instructions for Treatment How to access health informa tion online Indication:Non-smoker Start:07-Nov-2019 Instruction Type:Patient Education How to access health informa tion online - Detail Indication:Non-smoker Start:07-Nov-2019 Instruction Type:Patient Education Patient Instructions Indication:Non-smoker Start:07-Nov-2019 Instruction Type:Provider Instructions for Treatment How to access health informa tion online Indication:Non-smoker Start:01-Nov-2019 Instruction Type:Patient Education How to access health informa tion online - Detail Indication:Non-smoker Start:01-Nov-2019 Instruction Type:Patient Education Patient Instructions Indication:Non-smoker Start:01-Nov-2019 Instruction Type:Provider Instructions for Treatment How to access health informa tion online Indication:Non-smoker Start:07-Apr-2019 Instruction Type:Patient Education How to access health informa tion online - Detail Indication:Non-smoker Start:07-Apr-2019 Instruction Type:Patient Education Patient Instructions Indication:Non-smoker Start:07-Apr-2019 Instruction Type:Provider Instructions for Treatment How to access health informa tion online Indication:Non-smoker Start:03-Feb-2019 Instruction Type:Patient Education How to access health informa tion online - Detail Indication:Non-smoker Start:03-Feb-2019 Instruction Type:Patient Education Patient Instructions Indication:Non-smoker Start:03-Feb-2019 Instruction Type:Provider Instructions for Treatment How to access health informa tion online Indication:Hypertension, essential, benign Start:30-Dec-2018 Instruction Type:Patient Education How to access health informa tion online - Detail Indication:Hypertension, essential, benign Start:30-Dec-2018 Instruction Type:Patient Education Patient Instructions Indication:Hypertension, essential, benign Start:30-Dec-2018 Instruction Type:Provider Instructions for Treatment How to access health informa tion online Indication:BMI 26.0-26.9,adult Start:15-Dec-2016 Instruction Type:Patient Education How to access health informa tion online - Detail Indication:BMI 26.0-26.9,adult Start:15-Dec-2016 Instruction Type:Patient Education Patient Instructions Indication:BMI 26.0-26.9,adult Start:15-Dec-2016 Instruction Type:Provider Instructions for Treatment Patient Instructions Indication:Depression Start:26-Feb-2016 Instruction Type:Provider Instructions for Treatment How to access health informa tion online Indication:Medicare annual wellness visit, initial Start:20-Dec-2015 Instruction Type:Patient Education How to access health informa tion online - Detail Indication:Medicare annual wellness visit, initial Start:20-Dec-2015 Instruction Type:Patient Education Patient Instructions Indication:Medicare annual wellness visit, initial Start:20-Dec-2015 Instruction Type:Provider Instructions for Treatment How to access health informa tion online Indication:Depression Start:18-Oct-2015 Instruction Type:Patient Education How to access health informa tion online - Detail Indication:Depression Start:18-Oct-2015 Instruction Type:Patient Education Patient Instructions Indication:Depression Start:18-Oct-2015 Instruction Type:Provider Instructions for Treatment How to access health informa tion online Indication:Depression Start:18-Apr-2015 Instruction Type:Patient Education How to access health informa tion online - Detail Indication:Depression Start:18-Apr-2015 Instruction Type:Patient Education Patient Instructions Indication:Depression Start:18-Apr-2015 Instruction Type:Provider Instructions for Treatment How to access health informa tion online Indication:Depression Start:11-Oct-2014 Instruction Type:Patient Education How to access health informa tion online - Detail Indication:Depression Start:11-Oct-2014 Instruction Type:Patient Education Patient Instructions Indication:Depression Start:11-Oct-2014 Instruction Type:Provider Instructions for Treatment Patient Instructions Indication:Depression Start:19-Apr-2014 Instruction Type:Provider Instructions for Treatment Patient Instructions Indication:Hypertension, essential, benign Start:04-Oct-2013 Instruction Type:Provider Instructions for Treatment Patient Instructions Indication:Hypertension, essential, benign Start:15-Jun-2013 Instruction Type:Provider Instructions for Treatment Patient Instructions Indication:Hypertension, essential, benign Start:30-May-2013 Instruction Type:Provider Instructions for Treatment Patient Instructions Indication:Hypothyroidism Start:09-Mar-2013 Instruction Type:Provider Instructions for Treatment Patient Instructions Indication:Depression Start:10-Sep-2012 Instruction Type:Provider Instructions for Treatment [facility]; [facility] Work Phone: Instructions* Name Dates Details Patient Instructions Indication:BMI 28.0-28.9,adult Start:12-May-2022 Instruction Type:Provider Instructions for Treatment How to Access Health Informa tion Online using Patient Portal and [employer] Apps Indication:BMI 28.0-28.9,adult Start:12-May-2022 Instruction Type:Patient Education Patient Instructions Indication:BMI 27.0-27.9,adult Start:13-Mar-2022 Instruction Type:Provider Instructions for Treatment How to Access Health Informa tion Online using Patient Portal and [employer] Indication:BMI 27.0-27.9,adult Start:13-Mar-2022 Instruction Type:Patient Education Patient Instructions Indication:BMI 26.0-26.9,adult Start:20-May-2021 Instruction Type:Provider Instructions for Treatment How to Access Health Informa tion Online using Patient Portal and [employer] Indication:BMI 26.0-26.9,adult Start:20-May-2021 Instruction Type:Patient Education Patient Instructions Indication:Encounter for annual general medical examination with abnormal findings in adult Start:02-May-2021 Instruction Type:Provider Instructions for Treatment How to Access Health Informa tion Online using Patient Portal and [employer] Apps Indication:Encounter for annual general medical examination with abnormal findings in adult Start:02-May-2021 Instruction Type:Patient Education Patient Instructions Indication:Non-smoker Start:24-Apr-2021 Instruction Type:Provider Instructions for Treatment How to Access Health Informa tion Online using Patient Portal and [employer] Apps Indication:Non-smoker Start:24-Apr-2021 Instruction Type:Patient Education Patient Instructions Indication:Non-smoker Start:23-Jul-2020 Instruction Type:Provider Instructions for Treatment How to Access Health Informa tion Online using Patient Portal and [employer] Apps Indication:Non-smoker Start:23-Jul-2020 Instruction Type:Patient Education Patient Instructions Indication:BMI 25.0-25.9,adult Start:28-Jun-2020 Instruction Type:Provider Instructions for Treatment How to Access Health Informa tion Online using Patient Portal and [employer] Indication:BMI 25.0-25.9,adult Start:28-Jun-2020 Instruction Type:Patient Education How to Access Health Informa tion Online using Patient Portal and [employer] Apps Indication:Non-smoker Start:12-Jun-2020 Instruction Type:Patient Education Patient Instructions Indication:Non-smoker Start:12-Jun-2020 Instruction Type:Provider Instructions for Treatment How to Access Health Informa tion Online using Patient Portal and [employer] Apps Indication:Non-smoker Start:10-May-2020 Instruction Type:Patient Education Patient Instructions Indication:Non-smoker Start:10-May-2020 Instruction Type:Provider Instructions for Treatment How to access health informa tion online Indication:Shingles of eyelid Start:12-Apr-2020 Instruction Type:Patient Education How to access health informa tion online - Detail Indication:Shingles of eyelid Start:12-Apr-2020 Instruction Type:Patient Education Patient Instructions Indication:Shingles of eyelid Start:12-Apr-2020 Instruction Type:Provider Instructions for Treatment How to access health informa tion online Indication:BMI 25.0-25.9,adult Start:15-Dec-2019 Instruction Type:Patient Education How to access health informa tion online - Detail Indication:BMI 25.0-25.9,adult Start:15-Dec-2019 Instruction Type:Patient Education Patient Instructions Indication:BMI 25.0-25.9,adult Start:15-Dec-2019 Instruction Type:Provider Instructions for Treatment cardiovascular counseling Indication:Hypertension, essential, benign Start:01-Dec-2019 Instruction Type:Provider Instructions for Treatment How to access health informa tion online Indication:Non-smoker Start:01-Dec-2019 Instruction Type:Patient Education How to access health informa tion online - Detail Indication:Non-smoker Start:01-Dec-2019 Instruction Type:Patient Education Patient Instructions Indication:Non-smoker Start:01-Dec-2019 Instruction Type:Provider Instructions for Treatment How to access health informa tion online Indication:Non-smoker Start:07-Nov-2019 Instruction Type:Patient Education How to access health informa tion online - Detail Indication:Non-smoker Start:07-Nov-2019 Instruction Type:Patient Education Patient Instructions Indication:Non-smoker Start:07-Nov-2019 Instruction Type:Provider Instructions for Treatment How to access health informa tion online Indication:Non-smoker Start:01-Nov-2019 Instruction Type:Patient Education How to access health informa tion online - Detail Indication:Non-smoker Start:01-Nov-2019 Instruction Type:Patient Education Patient Instructions Indication:Non-smoker Start:01-Nov-2019 Instruction Type:Provider Instructions for Treatment How to access health informa tion online Indication:Non-smoker Start:07-Apr-2019 Instruction Type:Patient Education How to access health informa tion online - Detail Indication:Non-smoker Start:07-Apr-2019 Instruction Type:Patient Education Patient Instructions Indication:Non-smoker Start:07-Apr-2019 Instruction Type:Provider Instructions for Treatment How to access health informa tion online Indication:Non-smoker Start:03-Feb-2019 Instruction Type:Patient Education How to access health informa tion online - Detail Indication:Non-smoker Start:03-Feb-2019 Instruction Type:Patient Education Patient Instructions Indication:Non-smoker Start:03-Feb-2019 Instruction Type:Provider Instructions for Treatment How to access health informa tion online Indication:Hypertension, essential, benign Start:30-Dec-2018 Instruction Type:Patient Education How to access health informa tion online - Detail Indication:Hypertension, essential, benign Start:30-Dec-2018 Instruction Type:Patient Education Patient Instructions Indication:Hypertension, essential, benign Start:30-Dec-2018 Instruction Type:Provider Instructions for Treatment How to access health informa tion online Indication:BMI 26.0-26.9,adult Start:15-Dec-2016 Instruction Type:Patient Education How to access health informa tion online - Detail Indication:BMI 26.0-26.9,adult Start:15-Dec-2016 Instruction Type:Patient Education Patient Instructions Indication:BMI 26.0-26.9,adult Start:15-Dec-2016 Instruction Type:Provider Instructions for Treatment Patient Instructions Indication:Depression Start:26-Feb-2016 Instruction Type:Provider Instructions for Treatment How to access health informa tion online Indication:Medicare annual wellness visit, initial Start:20-Dec-2015 Instruction Type:Patient Education How to access health informa tion online - Detail Indication:Medicare annual wellness visit, initial Start:20-Dec-2015 Instruction Type:Patient Education Patient Instructions Indication:Medicare annual wellness visit, initial Start:20-Dec-2015 Instruction Type:Provider Instructions for Treatment How to access health informa tion online Indication:Depression Start:18-Oct-2015 Instruction Type:Patient Education How to access health informa tion online - Detail Indication:Depression Start:18-Oct-2015 Instruction Type:Patient Education Patient Instructions Indication:Depression Start:18-Oct-2015 Instruction Type:Provider Instructions for Treatment How to access health informa tion online Indication:Depression Start:18-Apr-2015 Instruction Type:Patient Education How to access health informa tion online - Detail Indication:Depression Start:18-Apr-2015 Instruction Type:Patient Education Patient Instructions Indication:Depression Start:18-Apr-2015 Instruction Type:Provider Instructions for Treatment How to access health informa tion online Indication:Depression Start:11-Oct-2014 Instruction Type:Patient Education How to access health informa tion online - Detail Indication:Depression Start:11-Oct-2014 Instruction Type:Patient Education Patient Instructions Indication:Depression Start:11-Oct-2014 Instruction Type:Provider Instructions for Treatment Patient Instructions Indication:Depression Start:19-Apr-2014 Instruction Type:Provider Instructions for Treatment Patient Instructions Indication:Hypertension, essential, benign Start:04-Oct-2013 Instruction Type:Provider Instructions for Treatment Patient Instructions Indication:Hypertension, essential, benign Start:15-Jun-2013 Instruction Type:Provider Instructions for Treatment Patient Instructions Indication:Hypertension, essential, benign Start:30-May-2013 Instruction Type:Provider Instructions for Treatment Patient Instructions Indication:Hypothyroidism Start:09-Mar-2013 Instruction Type:Provider Instructions for Treatment Patient Instructions Indication:Depression Start:10-Sep-2012 Instruction Type:Provider Instructions for Treatment [facility]; [facility] Work Phone: Instructions* Name Dates Details Patient Instructions Indication:BMI 28.0-28.9,adult Start:12-May-2022 Instruction Type:Provider Instructions for Treatment How to Access Health Informa tion Online using Patient Portal and [employer] Apps Indication:BMI 28.0-28.9,adult Start:12-May-2022 Instruction Type:Patient Education Patient Instructions Indication:BMI 27.0-27.9,adult Start:13-Mar-2022 Instruction Type:Provider Instructions for Treatment How to Access Health Informa tion Online using Patient Portal and [employer] Apps Indication:BMI 27.0-27.9,adult Start:13-Mar-2022 Instruction Type:Patient Education Patient Instructions Indication:BMI 26.0-26.9,adult Start:20-May-2021 Instruction Type:Provider Instructions for Treatment How to Access Health Informa tion Online using Patient Portal and [employer] Indication:BMI 26.0-26.9,adult Start:20-May-2021 Instruction Type:Patient Education Patient Instructions Indication:Encounter for annual general medical examination with abnormal findings in adult Start:02-May-2021 Instruction Type:Provider Instructions for Treatment How to Access Health Informa tion Online using Patient Portal and [employer] Indication:Encounter for annual general medical examination with abnormal findings in adult Start:02-May-2021 Instruction Type:Patient Education Patient Instructions Indication:Non-smoker Start:24-Apr-2021 Instruction Type:Provider Instructions for Treatment How to Access Health Informa tion Online using Patient Portal and [employer] Indication:Non-smoker Start:24-Apr-2021 Instruction Type:Patient Education Patient Instructions Indication:Non-smoker Start:23-Jul-2020 Instruction Type:Provider Instructions for Treatment How to Access Health Informa tion Online using Patient Portal and [employer] Apps Indication:Non-smoker Start:23-Jul-2020 Instruction Type:Patient Education Patient Instructions Indication:BMI 25.0-25.9,adult Start:28-Jun-2020 Instruction Type:Provider Instructions for Treatment How to Access Health Informa tion Online using Patient Portal and [employer] Indication:BMI 25.0-25.9,adult Start:28-Jun-2020 Instruction Type:Patient Education How to Access Health Informa tion Online using Patient Portal and [employer] Indication:Non-smoker Start:12-Jun-2020 Instruction Type:Patient Education Patient Instructions Indication:Non-smoker Start:12-Jun-2020 Instruction Type:Provider Instructions for Treatment How to Access Health Informa tion Online using Patient Portal and [employer] Apps Indication:Non-smoker Start:10-May-2020 Instruction Type:Patient Education Patient Instructions Indication:Non-smoker Start:10-May-2020 Instruction Type:Provider Instructions for Treatment How to access health informa tion online Indication:Shingles of eyelid Start:12-Apr-2020 Instruction Type:Patient Education How to access health informa tion online - Detail Indication:Shingles of eyelid Start:12-Apr-2020 Instruction Type:Patient Education Patient Instructions Indication:Shingles of eyelid Start:12-Apr-2020 Instruction Type:Provider Instructions for Treatment How to access health informa tion online Indication:BMI 25.0-25.9,adult Start:15-Dec-2019 Instruction Type:Patient Education How to access health informa tion online - Detail Indication:BMI 25.0-25.9,adult Start:15-Dec-2019 Instruction Type:Patient Education Patient Instructions Indication:BMI 25.0-25.9,adult Start:15-Dec-2019 Instruction Type:Provider Instructions for Treatment cardiovascular counseling Indication:Hypertension, essential, benign Start:01-Dec-2019 Instruction Type:Provider Instructions for Treatment How to access health informa tion online Indication:Non-smoker Start:01-Dec-2019 Instruction Type:Patient Education How to access health informa tion online - Detail Indication:Non-smoker Start:01-Dec-2019 Instruction Type:Patient Education Patient Instructions Indication:Non-smoker Start:01-Dec-2019 Instruction Type:Provider Instructions for Treatment How to access health informa tion online Indication:Non-smoker Start:07-Nov-2019 Instruction Type:Patient Education How to access health informa tion online - Detail Indication:Non-smoker Start:07-Nov-2019 Instruction Type:Patient Education Patient Instructions Indication:Non-smoker Start:07-Nov-2019 Instruction Type:Provider Instructions for Treatment How to access health informa tion online Indication:Non-smoker Start:01-Nov-2019 Instruction Type:Patient Education How to access health informa tion online - Detail Indication:Non-smoker Start:01-Nov-2019 Instruction Type:Patient Education Patient Instructions Indication:Non-smoker Start:01-Nov-2019 Instruction Type:Provider Instructions for Treatment How to access health informa tion online Indication:Non-smoker Start:07-Apr-2019 Instruction Type:Patient Education How to access health informa tion online - Detail Indication:Non-smoker Start:07-Apr-2019 Instruction Type:Patient Education Patient Instructions Indication:Non-smoker Start:07-Apr-2019 Instruction Type:Provider Instructions for Treatment How to access health informa tion online Indication:Non-smoker Start:03-Feb-2019 Instruction Type:Patient Education How to access health informa tion online - Detail Indication:Non-smoker Start:03-Feb-2019 Instruction Type:Patient Education Patient Instructions Indication:Non-smoker Start:03-Feb-2019 Instruction Type:Provider Instructions for Treatment How to access health informa tion online Indication:Hypertension, essential, benign Start:30-Dec-2018 Instruction Type:Patient Education How to access health informa tion online - Detail Indication:Hypertension, essential, benign Start:30-Dec-2018 Instruction Type:Patient Education Patient Instructions Indication:Hypertension, essential, benign Start:30-Dec-2018 Instruction Type:Provider Instructions for Treatment How to access health informa tion online Indication:BMI 26.0-26.9,adult Start:15-Dec-2016 Instruction Type:Patient Education How to access health informa tion online - Detail Indication:BMI 26.0-26.9,adult Start:15-Dec-2016 Instruction Type:Patient Education Patient Instructions Indication:BMI 26.0-26.9,adult Start:15-Dec-2016 Instruction Type:Provider Instructions for Treatment Patient Instructions Indication:Depression Start:26-Feb-2016 Instruction Type:Provider Instructions for Treatment How to access health informa tion online Indication:Medicare annual wellness visit, initial Start:20-Dec-2015 Instruction Type:Patient Education How to access health informa tion online - Detail Indication:Medicare annual wellness visit, initial Start:20-Dec-2015 Instruction Type:Patient Education Patient Instructions Indication:Medicare annual wellness visit, initial Start:20-Dec-2015 Instruction Type:Provider Instructions for Treatment How to access health informa tion online Indication:Depression Start:18-Oct-2015 Instruction Type:Patient Education How to access health informa tion online - Detail Indication:Depression Start:18-Oct-2015 Instruction Type:Patient Education Patient Instructions Indication:Depression Start:18-Oct-2015 Instruction Type:Provider Instructions for Treatment How to access health informa tion online Indication:Depression Start:18-Apr-2015 Instruction Type:Patient Education How to access health informa tion online - Detail Indication:Depression Start:18-Apr-2015 Instruction Type:Patient Education Patient Instructions Indication:Depression Start:18-Apr-2015 Instruction Type:Provider Instructions for Treatment How to access health informa tion online Indication:Depression Start:11-Oct-2014 Instruction Type:Patient Education How to access health informa tion online - Detail Indication:Depression Start:11-Oct-2014 Instruction Type:Patient Education Patient Instructions Indication:Depression Start:11-Oct-2014 Instruction Type:Provider Instructions for Treatment Patient Instructions Indication:Depression Start:19-Apr-2014 Instruction Type:Provider Instructions for Treatment Patient Instructions Indication:Hypertension, essential, benign Start:04-Oct-2013 Instruction Type:Provider Instructions for Treatment Patient Instructions Indication:Hypertension, essential, benign Start:15-Jun-2013 Instruction Type:Provider Instructions for Treatment Patient Instructions Indication:Hypertension, essential, benign Start:30-May-2013 Instruction Type:Provider Instructions for Treatment Patient Instructions Indication:Hypothyroidism Start:09-Mar-2013 Instruction Type:Provider Instructions for Treatment Patient Instructions Indication:Depression Start:10-Sep-2012 Instruction Type:Provider Instructions for Treatment [facility]; [facility] Work Phone: Instructions* Name Dates Details Patient Instructions Indication:BMI 28.0-28.9,adult Start:04-Jun-2022 Instruction Type:Provider Instructions for Treatment How to Access Health Informa tion Online using Patient Portal and [employer] Indication:BMI 28.0-28.9,adult Start:04-Jun-2022 Instruction Type:Patient Education Patient Instructions Indication:BMI 28.0-28.9,adult Start:12-May-2022 Instruction Type:Provider Instructions for Treatment How to Access Health Informa tion Online using Patient Portal and [employer] Apps Indication:BMI 28.0-28.9,adult Start:12-May-2022 Instruction Type:Patient Education Patient Instructions Indication:BMI 27.0-27.9,adult Start:13-Mar-2022 Instruction Type:Provider Instructions for Treatment How to Access Health Informa tion Online using Patient Portal and [employer] Apps Indication:BMI 27.0-27.9,adult Start:13-Mar-2022 Instruction Type:Patient Education Patient Instructions Indication:BMI 26.0-26.9,adult Start:20-May-2021 Instruction Type:Provider Instructions for Treatment How to Access Health Informa tion Online using Patient Portal and [employer] Indication:BMI 26.0-26.9,adult Start:20-May-2021 Instruction Type:Patient Education Patient Instructions Indication:Encounter for annual general medical examination with abnormal findings in adult Start:02-May-2021 Instruction Type:Provider Instructions for Treatment How to Access Health Informa tion Online using Patient Portal and [employer] Apps Indication:Encounter for annual general medical examination with abnormal findings in adult Start:02-May-2021 Instruction Type:Patient Education Patient Instructions Indication:Non-smoker Start:24-Apr-2021 Instruction Type:Provider Instructions for Treatment How to Access Health Informa tion Online using Patient Portal and [employer] Apps Indication:Non-smoker Start:24-Apr-2021 Instruction Type:Patient Education Patient Instructions Indication:Non-smoker Start:23-Jul-2020 Instruction Type:Provider Instructions for Treatment How to Access Health Informa tion Online using Patient Portal and [employer] Indication:Non-smoker Start:23-Jul-2020 Instruction Type:Patient Education Patient Instructions Indication:BMI 25.0-25.9,adult Start:28-Jun-2020 Instruction Type:Provider Instructions for Treatment How to Access Health Informa tion Online using Patient Portal and [employer] Indication:BMI 25.0-25.9,adult Start:28-Jun-2020 Instruction Type:Patient Education How to Access Health Informa tion Online using Patient Portal and [employer] Apps Indication:Non-smoker Start:12-Jun-2020 Instruction Type:Patient Education Patient Instructions Indication:Non-smoker Start:12-Jun-2020 Instruction Type:Provider Instructions for Treatment How to Access Health Informa tion Online using Patient Portal and [employer] Apps Indication:Non-smoker Start:10-May-2020 Instruction Type:Patient Education Patient Instructions Indication:Non-smoker Start:10-May-2020 Instruction Type:Provider Instructions for Treatment How to access health informa tion online Indication:Shingles of eyelid Start:12-Apr-2020 Instruction Type:Patient Education How to access health informa tion online - Detail Indication:Shingles of eyelid Start:12-Apr-2020 Instruction Type:Patient Education Patient Instructions Indication:Shingles of eyelid Start:12-Apr-2020 Instruction Type:Provider Instructions for Treatment How to access health informa tion online Indication:BMI 25.0-25.9,adult Start:15-Dec-2019 Instruction Type:Patient Education How to access health informa tion online - Detail Indication:BMI 25.0-25.9,adult Start:15-Dec-2019 Instruction Type:Patient Education Patient Instructions Indication:BMI 25.0-25.9,adult Start:15-Dec-2019 Instruction Type:Provider Instructions for Treatment cardiovascular counseling Indication:Hypertension, essential, benign Start:01-Dec-2019 Instruction Type:Provider Instructions for Treatment How to access health informa tion online Indication:Non-smoker Start:01-Dec-2019 Instruction Type:Patient Education How to access health informa tion online - Detail Indication:Non-smoker Start:01-Dec-2019 Instruction Type:Patient Education Patient Instructions Indication:Non-smoker Start:01-Dec-2019 Instruction Type:Provider Instructions for Treatment How to access health informa tion online Indication:Non-smoker Start:07-Nov-2019 Instruction Type:Patient Education How to access health informa tion online - Detail Indication:Non-smoker Start:07-Nov-2019 Instruction Type:Patient Education Patient Instructions Indication:Non-smoker Start:07-Nov-2019 Instruction Type:Provider Instructions for Treatment How to access health informa tion online Indication:Non-smoker Start:01-Nov-2019 Instruction Type:Patient Education How to access health informa tion online - Detail Indication:Non-smoker Start:01-Nov-2019 Instruction Type:Patient Education Patient Instructions Indication:Non-smoker Start:01-Nov-2019 Instruction Type:Provider Instructions for Treatment How to access health informa tion online Indication:Non-smoker Start:07-Apr-2019 Instruction Type:Patient Education How to access health informa tion online - Detail Indication:Non-smoker Start:07-Apr-2019 Instruction Type:Patient Education Patient Instructions Indication:Non-smoker Start:07-Apr-2019 Instruction Type:Provider Instructions for Treatment How to access health informa tion online Indication:Non-smoker Start:03-Feb-2019 Instruction Type:Patient Education How to access health informa tion online - Detail Indication:Non-smoker Start:03-Feb-2019 Instruction Type:Patient Education Patient Instructions Indication:Non-smoker Start:03-Feb-2019 Instruction Type:Provider Instructions for Treatment How to access health informa tion online Indication:Hypertension, essential, benign Start:30-Dec-2018 Instruction Type:Patient Education How to access health informa tion online - Detail Indication:Hypertension, essential, benign Start:30-Dec-2018 Instruction Type:Patient Education Patient Instructions Indication:Hypertension, essential, benign Start:30-Dec-2018 Instruction Type:Provider Instructions for Treatment How to access health informa tion online Indication:BMI 26.0-26.9,adult Start:15-Dec-2016 Instruction Type:Patient Education How to access health informa tion online - Detail Indication:BMI 26.0-26.9,adult Start:15-Dec-2016 Instruction Type:Patient Education Patient Instructions Indication:BMI 26.0-26.9,adult Start:15-Dec-2016 Instruction Type:Provider Instructions for Treatment Patient Instructions Indication:Depression Start:26-Feb-2016 Instruction Type:Provider Instructions for Treatment How to access health informa tion online Indication:Medicare annual wellness visit, initial Start:20-Dec-2015 Instruction Type:Patient Education How to access health informa tion online - Detail Indication:Medicare annual wellness visit, initial Start:20-Dec-2015 Instruction Type:Patient Education Patient Instructions Indication:Medicare annual wellness visit, initial Start:20-Dec-2015 Instruction Type:Provider Instructions for Treatment How to access health informa tion online Indication:Depression Start:18-Oct-2015 Instruction Type:Patient Education How to access health informa tion online - Detail Indication:Depression Start:18-Oct-2015 Instruction Type:Patient Education Patient Instructions Indication:Depression Start:18-Oct-2015 Instruction Type:Provider Instructions for Treatment How to access health informa tion online Indication:Depression Start:18-Apr-2015 Instruction Type:Patient Education How to access health informa tion online - Detail Indication:Depression Start:18-Apr-2015 Instruction Type:Patient Education Patient Instructions Indication:Depression Start:18-Apr-2015 Instruction Type:Provider Instructions for Treatment How to access health informa tion online Indication:Depression Start:11-Oct-2014 Instruction Type:Patient Education How to access health informa tion online - Detail Indication:Depression Start:11-Oct-2014 Instruction Type:Patient Education Patient Instructions Indication:Depression Start:11-Oct-2014 Instruction Type:Provider Instructions for Treatment Patient Instructions Indication:Depression Start:19-Apr-2014 Instruction Type:Provider Instructions for Treatment Patient Instructions Indication:Hypertension, essential, benign Start:04-Oct-2013 Instruction Type:Provider Instructions for Treatment Patient Instructions Indication:Hypertension, essential, benign Start:15-Jun-2013 Instruction Type:Provider Instructions for Treatment Patient Instructions Indication:Hypertension, essential, benign Start:30-May-2013 Instruction Type:Provider Instructions for Treatment Patient Instructions Indication:Hypothyroidism Start:09-Mar-2013 Instruction Type:Provider Instructions for Treatment Patient Instructions Indication:Depression Start:10-Sep-2012 Instruction Type:Provider Instructions for Treatment [facility]; [facility] Work Phone: Instructions* Name Dates Details Patient Instructions Indication:BMI 28.0-28.9,adult Start:04-Jun-2022 Instruction Type:Provider Instructions for Treatment How to Access Health Informa tion Online using Patient Portal and [employer] Indication:BMI 28.0-28.9,adult Start:04-Jun-2022 Instruction Type:Patient Education Patient Instructions Indication:BMI 28.0-28.9,adult Start:12-May-2022 Instruction Type:Provider Instructions for Treatment How to Access Health Informa tion Online using Patient Portal and [employer] Indication:BMI 28.0-28.9,adult Start:12-May-2022 Instruction Type:Patient Education Patient Instructions Indication:BMI 27.0-27.9,adult Start:13-Mar-2022 Instruction Type:Provider Instructions for Treatment How to Access Health Informa tion Online using Patient Portal and [employer] Indication:BMI 27.0-27.9,adult Start:13-Mar-2022 Instruction Type:Patient Education Patient Instructions Indication:BMI 26.0-26.9,adult Start:20-May-2021 Instruction Type:Provider Instructions for Treatment How to Access Health Informa tion Online using Patient Portal and [employer] Indication:BMI 26.0-26.9,adult Start:20-May-2021 Instruction Type:Patient Education Patient Instructions Indication:Encounter for annual general medical examination with abnormal findings in adult Start:02-May-2021 Instruction Type:Provider Instructions for Treatment How to Access Health Informa tion Online using Patient Portal and [employer] Indication:Encounter for annual general medical examination with abnormal findings in adult Start:02-May-2021 Instruction Type:Patient Education Patient Instructions Indication:Non-smoker Start:24-Apr-2021 Instruction Type:Provider Instructions for Treatment How to Access Health Informa tion Online using Patient Portal and [employer] Indication:Non-smoker Start:24-Apr-2021 Instruction Type:Patient Education Patient Instructions Indication:Non-smoker Start:23-Jul-2020 Instruction Type:Provider Instructions for Treatment How to Access Health Informa tion Online using Patient Portal and [employer] Indication:Non-smoker Start:23-Jul-2020 Instruction Type:Patient Education Patient Instructions Indication:BMI 25.0-25.9,adult Start:28-Jun-2020 Instruction Type:Provider Instructions for Treatment How to Access Health Informa tion Online using Patient Portal and [employer] Indication:BMI 25.0-25.9,adult Start:28-Jun-2020 Instruction Type:Patient Education How to Access Health Informa tion Online using Patient Portal and [employer] Indication:Non-smoker Start:12-Jun-2020 Instruction Type:Patient Education Patient Instructions Indication:Non-smoker Start:12-Jun-2020 Instruction Type:Provider Instructions for Treatment How to Access Health Informa tion Online using Patient Portal and [employer] Indication:Non-smoker Start:10-May-2020 Instruction Type:Patient Education Patient Instructions Indication:Non-smoker Start:10-May-2020 Instruction Type:Provider Instructions for Treatment How to access health informa tion online Indication:Shingles of eyelid Start:12-Apr-2020 Instruction Type:Patient Education How to access health informa tion online - Detail Indication:Shingles of eyelid Start:12-Apr-2020 Instruction Type:Patient Education Patient Instructions Indication:Shingles of eyelid Start:12-Apr-2020 Instruction Type:Provider Instructions for Treatment How to access health informa tion online Indication:BMI 25.0-25.9,adult Start:15-Dec-2019 Instruction Type:Patient Education How to access health informa tion online - Detail Indication:BMI 25.0-25.9,adult Start:15-Dec-2019 Instruction Type:Patient Education Patient Instructions Indication:BMI 25.0-25.9,adult Start:15-Dec-2019 Instruction Type:Provider Instructions for Treatment cardiovascular counseling Indication:Hypertension, essential, benign Start:01-Dec-2019 Instruction Type:Provider Instructions for Treatment How to access health informa tion online Indication:Non-smoker Start:01-Dec-2019 Instruction Type:Patient Education How to access health informa tion online - Detail Indication:Non-smoker Start:01-Dec-2019 Instruction Type:Patient Education Patient Instructions Indication:Non-smoker Start:01-Dec-2019 Instruction Type:Provider Instructions for Treatment How to access health informa tion online Indication:Non-smoker Start:07-Nov-2019 Instruction Type:Patient Education How to access health informa tion online - Detail Indication:Non-smoker Start:07-Nov-2019 Instruction Type:Patient Education Patient Instructions Indication:Non-smoker Start:07-Nov-2019 Instruction Type:Provider Instructions for Treatment How to access health informa tion online Indication:Non-smoker Start:01-Nov-2019 Instruction Type:Patient Education How to access health informa tion online - Detail Indication:Non-smoker Start:01-Nov-2019 Instruction Type:Patient Education Patient Instructions Indication:Non-smoker Start:01-Nov-2019 Instruction Type:Provider Instructions for Treatment How to access health informa tion online Indication:Non-smoker Start:07-Apr-2019 Instruction Type:Patient Education How to access health informa tion online - Detail Indication:Non-smoker Start:07-Apr-2019 Instruction Type:Patient Education Patient Instructions Indication:Non-smoker Start:07-Apr-2019 Instruction Type:Provider Instructions for Treatment How to access health informa tion online Indication:Non-smoker Start:03-Feb-2019 Instruction Type:Patient Education How to access health informa tion online - Detail Indication:Non-smoker Start:03-Feb-2019 Instruction Type:Patient Education Patient Instructions Indication:Non-smoker Start:03-Feb-2019 Instruction Type:Provider Instructions for Treatment How to access health informa tion online Indication:Hypertension, essential, benign Start:30-Dec-2018 Instruction Type:Patient Education How to access health informa tion online - Detail Indication:Hypertension, essential, benign Start:30-Dec-2018 Instruction Type:Patient Education Patient Instructions Indication:Hypertension, essential, benign Start:30-Dec-2018 Instruction Type:Provider Instructions for Treatment How to access health informa tion online Indication:BMI 26.0-26.9,adult Start:15-Dec-2016 Instruction Type:Patient Education How to access health informa tion online - Detail Indication:BMI 26.0-26.9,adult Start:15-Dec-2016 Instruction Type:Patient Education Patient Instructions Indication:BMI 26.0-26.9,adult Start:15-Dec-2016 Instruction Type:Provider Instructions for Treatment Patient Instructions Indication:Depression Start:26-Feb-2016 Instruction Type:Provider Instructions for Treatment How to access health informa tion online Indication:Medicare annual wellness visit, initial Start:20-Dec-2015 Instruction Type:Patient Education How to access health informa tion online - Detail Indication:Medicare annual wellness visit, initial Start:20-Dec-2015 Instruction Type:Patient Education Patient Instructions Indication:Medicare annual wellness visit, initial Start:20-Dec-2015 Instruction Type:Provider Instructions for Treatment How to access health informa tion online Indication:Depression Start:18-Oct-2015 Instruction Type:Patient Education How to access health informa tion online - Detail Indication:Depression Start:18-Oct-2015 Instruction Type:Patient Education Patient Instructions Indication:Depression Start:18-Oct-2015 Instruction Type:Provider Instructions for Treatment How to access health informa tion online Indication:Depression Start:18-Apr-2015 Instruction Type:Patient Education How to access health informa tion online - Detail Indication:Depression Start:18-Apr-2015 Instruction Type:Patient Education Patient Instructions Indication:Depression Start:18-Apr-2015 Instruction Type:Provider Instructions for Treatment How to access health informa tion online Indication:Depression Start:11-Oct-2014 Instruction Type:Patient Education How to access health informa tion online - Detail Indication:Depression Start:11-Oct-2014 Instruction Type:Patient Education Patient Instructions Indication:Depression Start:11-Oct-2014 Instruction Type:Provider Instructions for Treatment Patient Instructions Indication:Depression Start:19-Apr-2014 Instruction Type:Provider Instructions for Treatment Patient Instructions Indication:Hypertension, essential, benign Start:04-Oct-2013 Instruction Type:Provider Instructions for Treatment Patient Instructions Indication:Hypertension, essential, benign Start:15-Jun-2013 Instruction Type:Provider Instructions for Treatment Patient Instructions Indication:Hypertension, essential, benign Start:30-May-2013 Instruction Type:Provider Instructions for Treatment Patient Instructions Indication:Hypothyroidism Start:09-Mar-2013 Instruction Type:Provider Instructions for Treatment Patient Instructions Indication:Depression Start:10-Sep-2012 Instruction Type:Provider Instructions for Treatment [facility] Work Phone: Instructions* Name Dates Details Patient Instructions Indication:BMI 28.0-28.9,adult Start:04-Jun-2022 Instruction Type:Provider Instructions for Treatment How to Access Health Informa tion Online using Patient Portal and [employer] Apps Indication:BMI 28.0-28.9,adult Start:04-Jun-2022 Instruction Type:Patient Education Patient Instructions Indication:BMI 28.0-28.9,adult Start:12-May-2022 Instruction Type:Provider Instructions for Treatment How to Access Health Informa tion Online using Patient Portal and [employer] Apps Indication:BMI 28.0-28.9,adult Start:12-May-2022 Instruction Type:Patient Education Patient Instructions Indication:BMI 27.0-27.9,adult Start:13-Mar-2022 Instruction Type:Provider Instructions for Treatment How to Access Health Informa tion Online using Patient Portal and [employer] Apps Indication:BMI 27.0-27.9,adult Start:13-Mar-2022 Instruction Type:Patient Education Patient Instructions Indication:BMI 26.0-26.9,adult Start:20-May-2021 Instruction Type:Provider Instructions for Treatment How to Access Health Informa tion Online using Patient Portal and [employer] Apps Indication:BMI 26.0-26.9,adult Start:20-May-2021 Instruction Type:Patient Education Patient Instructions Indication:Encounter for annual general medical examination with abnormal findings in adult Start:02-May-2021 Instruction Type:Provider Instructions for Treatment How to Access Health Informa tion Online using Patient Portal and [employer] Apps Indication:Encounter for annual general medical examination with abnormal findings in adult Start:02-May-2021 Instruction Type:Patient Education Patient Instructions Indication:Non-smoker Start:24-Apr-2021 Instruction Type:Provider Instructions for Treatment How to Access Health Informa tion Online using Patient Portal and [employer] Apps Indication:Non-smoker Start:24-Apr-2021 Instruction Type:Patient Education Patient Instructions Indication:Non-smoker Start:23-Jul-2020 Instruction Type:Provider Instructions for Treatment How to Access Health Informa tion Online using Patient Portal and [employer] Apps Indication:Non-smoker Start:23-Jul-2020 Instruction Type:Patient Education Patient Instructions Indication:BMI 25.0-25.9,adult Start:28-Jun-2020 Instruction Type:Provider Instructions for Treatment How to Access Health Informa tion Online using Patient Portal and [employer] Apps Indication:BMI 25.0-25.9,adult Start:28-Jun-2020 Instruction Type:Patient Education How to Access Health Informa tion Online using Patient Portal and [employer] Apps Indication:Non-smoker Start:12-Jun-2020 Instruction Type:Patient Education Patient Instructions Indication:Non-smoker Start:12-Jun-2020 Instruction Type:Provider Instructions for Treatment How to Access Health Informa tion Online using Patient Portal and [employer] Apps Indication:Non-smoker Start:10-May-2020 Instruction Type:Patient Education Patient Instructions Indication:Non-smoker Start:10-May-2020 Instruction Type:Provider Instructions for Treatment How to access health informa tion online Indication:Shingles of eyelid Start:12-Apr-2020 Instruction Type:Patient Education How to access health informa tion online - Detail Indication:Shingles of eyelid Start:12-Apr-2020 Instruction Type:Patient Education Patient Instructions Indication:Shingles of eyelid Start:12-Apr-2020 Instruction Type:Provider Instructions for Treatment How to access health informa tion online Indication:BMI 25.0-25.9,adult Start:15-Dec-2019 Instruction Type:Patient Education How to access health informa tion online - Detail Indication:BMI 25.0-25.9,adult Start:15-Dec-2019 Instruction Type:Patient Education Patient Instructions Indication:BMI 25.0-25.9,adult Start:15-Dec-2019 Instruction Type:Provider Instructions for Treatment cardiovascular counseling Indication:Hypertension, essential, benign Start:01-Dec-2019 Instruction Type:Provider Instructions for Treatment How to access health informa tion online Indication:Non-smoker Start:01-Dec-2019 Instruction Type:Patient Education How to access health informa tion online - Detail Indication:Non-smoker Start:01-Dec-2019 Instruction Type:Patient Education Patient Instructions Indication:Non-smoker Start:01-Dec-2019 Instruction Type:Provider Instructions for Treatment How to access health informa tion online Indication:Non-smoker Start:07-Nov-2019 Instruction Type:Patient Education How to access health informa tion online - Detail Indication:Non-smoker Start:07-Nov-2019 Instruction Type:Patient Education Patient Instructions Indication:Non-smoker Start:07-Nov-2019 Instruction Type:Provider Instructions for Treatment How to access health informa tion online Indication:Non-smoker Start:01-Nov-2019 Instruction Type:Patient Education How to access health informa tion online - Detail Indication:Non-smoker Start:01-Nov-2019 Instruction Type:Patient Education Patient Instructions Indication:Non-smoker Start:01-Nov-2019 Instruction Type:Provider Instructions for Treatment How to access health informa tion online Indication:Non-smoker Start:07-Apr-2019 Instruction Type:Patient Education How to access health informa tion online - Detail Indication:Non-smoker Start:07-Apr-2019 Instruction Type:Patient Education Patient Instructions Indication:Non-smoker Start:07-Apr-2019 Instruction Type:Provider Instructions for Treatment How to access health informa tion online Indication:Non-smoker Start:03-Feb-2019 Instruction Type:Patient Education How to access health informa tion online - Detail Indication:Non-smoker Start:03-Feb-2019 Instruction Type:Patient Education Patient Instructions Indication:Non-smoker Start:03-Feb-2019 Instruction Type:Provider Instructions for Treatment How to access health informa tion online Indication:Hypertension, essential, benign Start:30-Dec-2018 Instruction Type:Patient Education How to access health informa tion online - Detail Indication:Hypertension, essential, benign Start:30-Dec-2018 Instruction Type:Patient Education Patient Instructions Indication:Hypertension, essential, benign Start:30-Dec-2018 Instruction Type:Provider Instructions for Treatment How to access health informa tion online Indication:BMI 26.0-26.9,adult Start:15-Dec-2016 Instruction Type:Patient Education How to access health informa tion online - Detail Indication:BMI 26.0-26.9,adult Start:15-Dec-2016 Instruction Type:Patient Education Patient Instructions Indication:BMI 26.0-26.9,adult Start:15-Dec-2016 Instruction Type:Provider Instructions for Treatment Patient Instructions Indication:Depression Start:26-Feb-2016 Instruction Type:Provider Instructions for Treatment How to access health informa tion online Indication:Medicare annual wellness visit, initial Start:20-Dec-2015 Instruction Type:Patient Education How to access health informa tion online - Detail Indication:Medicare annual wellness visit, initial Start:20-Dec-2015 Instruction Type:Patient Education Patient Instructions Indication:Medicare annual wellness visit, initial Start:20-Dec-2015 Instruction Type:Provider Instructions for Treatment How to access health informa tion online Indication:Depression Start:18-Oct-2015 Instruction Type:Patient Education How to access health informa tion online - Detail Indication:Depression Start:18-Oct-2015 Instruction Type:Patient Education Patient Instructions Indication:Depression Start:18-Oct-2015 Instruction Type:Provider Instructions for Treatment How to access health informa tion online Indication:Depression Start:18-Apr-2015 Instruction Type:Patient Education How to access health informa tion online - Detail Indication:Depression Start:18-Apr-2015 Instruction Type:Patient Education Patient Instructions Indication:Depression Start:18-Apr-2015 Instruction Type:Provider Instructions for Treatment How to access health informa tion online Indication:Depression Start:11-Oct-2014 Instruction Type:Patient Education How to access health informa tion online - Detail Indication:Depression Start:11-Oct-2014 Instruction Type:Patient Education Patient Instructions Indication:Depression Start:11-Oct-2014 Instruction Type:Provider Instructions for Treatment Patient Instructions Indication:Depression Start:19-Apr-2014 Instruction Type:Provider Instructions for Treatment Patient Instructions Indication:Hypertension, essential, benign Start:04-Oct-2013 Instruction Type:Provider Instructions for Treatment Patient Instructions Indication:Hypertension, essential, benign Start:15-Jun-2013 Instruction Type:Provider Instructions for Treatment Patient Instructions Indication:Hypertension, essential, benign Start:30-May-2013 Instruction Type:Provider Instructions for Treatment Patient Instructions Indication:Hypothyroidism Start:09-Mar-2013 Instruction Type:Provider Instructions for Treatment Patient Instructions Indication:Depression Start:10-Sep-2012 Instruction Type:Provider Instructions for Treatment [facility]; [facility] Work Phone: Instructions* Name Dates Details Patient Instructions Indication:BMI 28.0-28.9,adult Start:04-Jun-2022 Instruction Type:Provider Instructions for Treatment How to Access Health Informa tion Online using Patient Portal and [employer] Apps Indication:BMI 28.0-28.9,adult Start:04-Jun-2022 Instruction Type:Patient Education Patient Instructions Indication:BMI 28.0-28.9,adult Start:12-May-2022 Instruction Type:Provider Instructions for Treatment How to Access Health Informa tion Online using Patient Portal and [employer] Apps Indication:BMI 28.0-28.9,adult Start:12-May-2022 Instruction Type:Patient Education Patient Instructions Indication:BMI 27.0-27.9,adult Start:13-Mar-2022 Instruction Type:Provider Instructions for Treatment How to Access Health Informa tion Online using Patient Portal and [employer] Apps Indication:BMI 27.0-27.9,adult Start:13-Mar-2022 Instruction Type:Patient Education Patient Instructions Indication:BMI 26.0-26.9,adult Start:20-May-2021 Instruction Type:Provider Instructions for Treatment How to Access Health Informa tion Online using Patient Portal and [employer] Apps Indication:BMI 26.0-26.9,adult Start:20-May-2021 Instruction Type:Patient Education Patient Instructions Indication:Encounter for annual general medical examination with abnormal findings in adult Start:02-May-2021 Instruction Type:Provider Instructions for Treatment How to Access Health Informa tion Online using Patient Portal and [employer] Apps Indication:Encounter for annual general medical examination with abnormal findings in adult Start:02-May-2021 Instruction Type:Patient Education Patient Instructions Indication:Non-smoker Start:24-Apr-2021 Instruction Type:Provider Instructions for Treatment How to Access Health Informa tion Online using Patient Portal and [employer] Apps Indication:Non-smoker Start:24-Apr-2021 Instruction Type:Patient Education Patient Instructions Indication:Non-smoker Start:23-Jul-2020 Instruction Type:Provider Instructions for Treatment How to Access Health Informa tion Online using Patient Portal and [employer] Apps Indication:Non-smoker Start:23-Jul-2020 Instruction Type:Patient Education Patient Instructions Indication:BMI 25.0-25.9,adult Start:28-Jun-2020 Instruction Type:Provider Instructions for Treatment How to Access Health Informa tion Online using Patient Portal and [employer] Apps Indication:BMI 25.0-25.9,adult Start:28-Jun-2020 Instruction Type:Patient Education How to Access Health Informa tion Online using Patient Portal and [employer] Apps Indication:Non-smoker Start:12-Jun-2020 Instruction Type:Patient Education Patient Instructions Indication:Non-smoker Start:12-Jun-2020 Instruction Type:Provider Instructions for Treatment How to Access Health Informa tion Online using Patient Portal and [employer] Apps Indication:Non-smoker Start:10-May-2020 Instruction Type:Patient Education Patient Instructions Indication:Non-smoker Start:10-May-2020 Instruction Type:Provider Instructions for Treatment How to access health informa tion online Indication:Shingles of eyelid Start:12-Apr-2020 Instruction Type:Patient Education How to access health informa tion online - Detail Indication:Shingles of eyelid Start:12-Apr-2020 Instruction Type:Patient Education Patient Instructions Indication:Shingles of eyelid Start:12-Apr-2020 Instruction Type:Provider Instructions for Treatment How to access health informa tion online Indication:BMI 25.0-25.9,adult Start:15-Dec-2019 Instruction Type:Patient Education How to access health informa tion online - Detail Indication:BMI 25.0-25.9,adult Start:15-Dec-2019 Instruction Type:Patient Education Patient Instructions Indication:BMI 25.0-25.9,adult Start:15-Dec-2019 Instruction Type:Provider Instructions for Treatment cardiovascular counseling Indication:Hypertension, essential, benign Start:01-Dec-2019 Instruction Type:Provider Instructions for Treatment How to access health informa tion online Indication:Non-smoker Start:01-Dec-2019 Instruction Type:Patient Education How to access health informa tion online - Detail Indication:Non-smoker Start:01-Dec-2019 Instruction Type:Patient Education Patient Instructions Indication:Non-smoker Start:01-Dec-2019 Instruction Type:Provider Instructions for Treatment How to access health informa tion online Indication:Non-smoker Start:07-Nov-2019 Instruction Type:Patient Education How to access health informa tion online - Detail Indication:Non-smoker Start:07-Nov-2019 Instruction Type:Patient Education Patient Instructions Indication:Non-smoker Start:07-Nov-2019 Instruction Type:Provider Instructions for Treatment How to access health informa tion online Indication:Non-smoker Start:01-Nov-2019 Instruction Type:Patient Education How to access health informa tion online - Detail Indication:Non-smoker Start:01-Nov-2019 Instruction Type:Patient Education Patient Instructions Indication:Non-smoker Start:01-Nov-2019 Instruction Type:Provider Instructions for Treatment How to access health informa tion online Indication:Non-smoker Start:07-Apr-2019 Instruction Type:Patient Education How to access health informa tion online - Detail Indication:Non-smoker Start:07-Apr-2019 Instruction Type:Patient Education Patient Instructions Indication:Non-smoker Start:07-Apr-2019 Instruction Type:Provider Instructions for Treatment How to access health informa tion online Indication:Non-smoker Start:03-Feb-2019 Instruction Type:Patient Education How to access health informa tion online - Detail Indication:Non-smoker Start:03-Feb-2019 Instruction Type:Patient Education Patient Instructions Indication:Non-smoker Start:03-Feb-2019 Instruction Type:Provider Instructions for Treatment How to access health informa tion online Indication:Hypertension, essential, benign Start:30-Dec-2018 Instruction Type:Patient Education How to access health informa tion online - Detail Indication:Hypertension, essential, benign Start:30-Dec-2018 Instruction Type:Patient Education Patient Instructions Indication:Hypertension, essential, benign Start:30-Dec-2018 Instruction Type:Provider Instructions for Treatment How to access health informa tion online Indication:BMI 26.0-26.9,adult Start:15-Dec-2016 Instruction Type:Patient Education How to access health informa tion online - Detail Indication:BMI 26.0-26.9,adult Start:15-Dec-2016 Instruction Type:Patient Education Patient Instructions Indication:BMI 26.0-26.9,adult Start:15-Dec-2016 Instruction Type:Provider Instructions for Treatment Patient Instructions Indication:Depression Start:26-Feb-2016 Instruction Type:Provider Instructions for Treatment How to access health informa tion online Indication:Medicare annual wellness visit, initial Start:20-Dec-2015 Instruction Type:Patient Education How to access health informa tion online - Detail Indication:Medicare annual wellness visit, initial Start:20-Dec-2015 Instruction Type:Patient Education Patient Instructions Indication:Medicare annual wellness visit, initial Start:20-Dec-2015 Instruction Type:Provider Instructions for Treatment How to access health informa tion online Indication:Depression Start:18-Oct-2015 Instruction Type:Patient Education How to access health informa tion online - Detail Indication:Depression Start:18-Oct-2015 Instruction Type:Patient Education Patient Instructions Indication:Depression Start:18-Oct-2015 Instruction Type:Provider Instructions for Treatment How to access health informa tion online Indication:Depression Start:18-Apr-2015 Instruction Type:Patient Education How to access health informa tion online - Detail Indication:Depression Start:18-Apr-2015 Instruction Type:Patient Education Patient Instructions Indication:Depression Start:18-Apr-2015 Instruction Type:Provider Instructions for Treatment How to access health informa tion online Indication:Depression Start:11-Oct-2014 Instruction Type:Patient Education How to access health informa tion online - Detail Indication:Depression Start:11-Oct-2014 Instruction Type:Patient Education Patient Instructions Indication:Depression Start:11-Oct-2014 Instruction Type:Provider Instructions for Treatment Patient Instructions Indication:Depression Start:19-Apr-2014 Instruction Type:Provider Instructions for Treatment Patient Instructions Indication:Hypertension, essential, benign Start:04-Oct-2013 Instruction Type:Provider Instructions for Treatment Patient Instructions Indication:Hypertension, essential, benign Start:15-Jun-2013 Instruction Type:Provider Instructions for Treatment Patient Instructions Indication:Hypertension, essential, benign Start:30-May-2013 Instruction Type:Provider Instructions for Treatment Patient Instructions Indication:Hypothyroidism Start:09-Mar-2013 Instruction Type:Provider Instructions for Treatment Patient Instructions Indication:Depression Start:10-Sep-2012 Instruction Type:Provider Instructions for Treatment [facility]; [facility] Work Phone: Instructions* Name Dates Details Patient Instructions Indication:BMI 28.0-28.9,adult Start:08-Sep-2022 Instruction Type:Provider Instructions for Treatment How to Access Health Informa tion Online using Patient Portal and [employer] Apps Indication:BMI 28.0-28.9,adult Start:08-Sep-2022 Instruction Type:Patient Education Patient Instructions Indication:BMI 28.0-28.9,adult Start:04-Jun-2022 Instruction Type:Provider Instructions for Treatment How to Access Health Informa tion Online using Patient Portal and [employer] Apps Indication:BMI 28.0-28.9,adult Start:04-Jun-2022 Instruction Type:Patient Education Patient Instructions Indication:BMI 28.0-28.9,adult Start:12-May-2022 Instruction Type:Provider Instructions for Treatment How to Access Health Informa tion Online using Patient Portal and [employer] Apps Indication:BMI 28.0-28.9,adult Start:12-May-2022 Instruction Type:Patient Education Patient Instructions Indication:BMI 27.0-27.9,adult Start:13-Mar-2022 Instruction Type:Provider Instructions for Treatment How to Access Health Informa tion Online using Patient Portal and [employer] Apps Indication:BMI 27.0-27.9,adult Start:13-Mar-2022 Instruction Type:Patient Education Patient Instructions Indication:BMI 26.0-26.9,adult Start:20-May-2021 Instruction Type:Provider Instructions for Treatment How to Access Health Informa tion Online using Patient Portal and [employer] Apps Indication:BMI 26.0-26.9,adult Start:20-May-2021 Instruction Type:Patient Education Patient Instructions Indication:Encounter for annual general medical examination with abnormal findings in adult Start:02-May-2021 Instruction Type:Provider Instructions for Treatment How to Access Health Informa tion Online using Patient Portal and [employer] Apps Indication:Encounter for annual general medical examination with abnormal findings in adult Start:02-May-2021 Instruction Type:Patient Education Patient Instructions Indication:Non-smoker Start:24-Apr-2021 Instruction Type:Provider Instructions for Treatment How to Access Health Informa tion Online using Patient Portal and [employer] Apps Indication:Non-smoker Start:24-Apr-2021 Instruction Type:Patient Education Patient Instructions Indication:Non-smoker Start:23-Jul-2020 Instruction Type:Provider Instructions for Treatment How to Access Health Informa tion Online using Patient Portal and [employer] Apps Indication:Non-smoker Start:23-Jul-2020 Instruction Type:Patient Education Patient Instructions Indication:BMI 25.0-25.9,adult Start:28-Jun-2020 Instruction Type:Provider Instructions for Treatment How to Access Health Informa tion Online using Patient Portal and [employer] Apps Indication:BMI 25.0-25.9,adult Start:28-Jun-2020 Instruction Type:Patient Education How to Access Health Informa tion Online using Patient Portal and [employer] Apps Indication:Non-smoker Start:12-Jun-2020 Instruction Type:Patient Education Patient Instructions Indication:Non-smoker Start:12-Jun-2020 Instruction Type:Provider Instructions for Treatment How to Access Health Informa tion Online using Patient Portal and [employer] Apps Indication:Non-smoker Start:10-May-2020 Instruction Type:Patient Education Patient Instructions Indication:Non-smoker Start:10-May-2020 Instruction Type:Provider Instructions for Treatment How to access health informa tion online Indication:Shingles of eyelid Start:12-Apr-2020 Instruction Type:Patient Education How to access health informa tion online - Detail Indication:Shingles of eyelid Start:12-Apr-2020 Instruction Type:Patient Education Patient Instructions Indication:Shingles of eyelid Start:12-Apr-2020 Instruction Type:Provider Instructions for Treatment How to access health informa tion online Indication:BMI 25.0-25.9,adult Start:15-Dec-2019 Instruction Type:Patient Education How to access health informa tion online - Detail Indication:BMI 25.0-25.9,adult Start:15-Dec-2019 Instruction Type:Patient Education Patient Instructions Indication:BMI 25.0-25.9,adult Start:15-Dec-2019 Instruction Type:Provider Instructions for Treatment cardiovascular counseling Indication:Hypertension, essential, benign Start:01-Dec-2019 Instruction Type:Provider Instructions for Treatment How to access health informa tion online Indication:Non-smoker Start:01-Dec-2019 Instruction Type:Patient Education How to access health informa tion online - Detail Indication:Non-smoker Start:01-Dec-2019 Instruction Type:Patient Education Patient Instructions Indication:Non-smoker Start:01-Dec-2019 Instruction Type:Provider Instructions for Treatment How to access health informa tion online Indication:Non-smoker Start:07-Nov-2019 Instruction Type:Patient Education How to access health informa tion online - Detail Indication:Non-smoker Start:07-Nov-2019 Instruction Type:Patient Education Patient Instructions Indication:Non-smoker Start:07-Nov-2019 Instruction Type:Provider Instructions for Treatment How to access health informa tion online Indication:Non-smoker Start:01-Nov-2019 Instruction Type:Patient Education How to access health informa tion online - Detail Indication:Non-smoker Start:01-Nov-2019 Instruction Type:Patient Education Patient Instructions Indication:Non-smoker Start:01-Nov-2019 Instruction Type:Provider Instructions for Treatment How to access health informa tion online Indication:Non-smoker Start:07-Apr-2019 Instruction Type:Patient Education How to access health informa tion online - Detail Indication:Non-smoker Start:07-Apr-2019 Instruction Type:Patient Education Patient Instructions Indication:Non-smoker Start:07-Apr-2019 Instruction Type:Provider Instructions for Treatment How to access health informa tion online Indication:Non-smoker Start:03-Feb-2019 Instruction Type:Patient Education How to access health informa tion online - Detail Indication:Non-smoker Start:03-Feb-2019 Instruction Type:Patient Education Patient Instructions Indication:Non-smoker Start:03-Feb-2019 Instruction Type:Provider Instructions for Treatment How to access health informa tion online Indication:Hypertension, essential, benign Start:30-Dec-2018 Instruction Type:Patient Education How to access health informa tion online - Detail Indication:Hypertension, essential, benign Start:30-Dec-2018 Instruction Type:Patient Education Patient Instructions Indication:Hypertension, essential, benign Start:30-Dec-2018 Instruction Type:Provider Instructions for Treatment How to access health informa tion online Indication:BMI 26.0-26.9,adult Start:15-Dec-2016 Instruction Type:Patient Education How to access health informa tion online - Detail Indication:BMI 26.0-26.9,adult Start:15-Dec-2016 Instruction Type:Patient Education Patient Instructions Indication:BMI 26.0-26.9,adult Start:15-Dec-2016 Instruction Type:Provider Instructions for Treatment Patient Instructions Indication:Depression Start:26-Feb-2016 Instruction Type:Provider Instructions for Treatment How to access health informa tion online Indication:Medicare annual wellness visit, initial Start:20-Dec-2015 Instruction Type:Patient Education How to access health informa tion online - Detail Indication:Medicare annual wellness visit, initial Start:20-Dec-2015 Instruction Type:Patient Education Patient Instructions Indication:Medicare annual wellness visit, initial Start:20-Dec-2015 Instruction Type:Provider Instructions for Treatment How to access health informa tion online Indication:Depression Start:18-Oct-2015 Instruction Type:Patient Education How to access health informa tion online - Detail Indication:Depression Start:18-Oct-2015 Instruction Type:Patient Education Patient Instructions Indication:Depression Start:18-Oct-2015 Instruction Type:Provider Instructions for Treatment How to access health informa tion online Indication:Depression Start:18-Apr-2015 Instruction Type:Patient Education How to access health informa tion online - Detail Indication:Depression Start:18-Apr-2015 Instruction Type:Patient Education Patient Instructions Indication:Depression Start:18-Apr-2015 Instruction Type:Provider Instructions for Treatment How to access health informa tion online Indication:Depression Start:11-Oct-2014 Instruction Type:Patient Education How to access health informa tion online - Detail Indication:Depression Start:11-Oct-2014 Instruction Type:Patient Education Patient Instructions Indication:Depression Start:11-Oct-2014 Instruction Type:Provider Instructions for Treatment Patient Instructions Indication:Depression Start:19-Apr-2014 Instruction Type:Provider Instructions for Treatment Patient Instructions Indication:Hypertension, essential, benign Start:04-Oct-2013 Instruction Type:Provider Instructions for Treatment Patient Instructions Indication:Hypertension, essential, benign Start:15-Jun-2013 Instruction Type:Provider Instructions for Treatment Patient Instructions Indication:Hypertension, essential, benign Start:30-May-2013 Instruction Type:Provider Instructions for Treatment Patient Instructions Indication:Hypothyroidism Start:09-Mar-2013 Instruction Type:Provider Instructions for Treatment Patient Instructions Indication:Depression Start:10-Sep-2012 Instruction Type:Provider Instructions for Treatment [facility]; [facility] Work Phone: Instructions* Name Dates Details Patient Instructions Indication:BMI 28.0-28.9,adult Start:08-Sep-2022 Instruction Type:Provider Instructions for Treatment How to Access Health Informa tion Online using Patient Portal and [employer] Apps Indication:BMI 28.0-28.9,adult Start:08-Sep-2022 Instruction Type:Patient Education Patient Instructions Indication:BMI 28.0-28.9,adult Start:04-Jun-2022 Instruction Type:Provider Instructions for Treatment How to Access Health Informa tion Online using Patient Portal and [employer] Apps Indication:BMI 28.0-28.9,adult Start:04-Jun-2022 Instruction Type:Patient Education Patient Instructions Indication:BMI 28.0-28.9,adult Start:12-May-2022 Instruction Type:Provider Instructions for Treatment How to Access Health Informa tion Online using Patient Portal and [employer] Apps Indication:BMI 28.0-28.9,adult Start:12-May-2022 Instruction Type:Patient Education Patient Instructions Indication:BMI 27.0-27.9,adult Start:13-Mar-2022 Instruction Type:Provider Instructions for Treatment How to Access Health Informa tion Online using Patient Portal and [employer] Apps Indication:BMI 27.0-27.9,adult Start:13-Mar-2022 Instruction Type:Patient Education Patient Instructions Indication:BMI 26.0-26.9,adult Start:20-May-2021 Instruction Type:Provider Instructions for Treatment How to Access Health Informa tion Online using Patient Portal and [employer] Apps Indication:BMI 26.0-26.9,adult Start:20-May-2021 Instruction Type:Patient Education Patient Instructions Indication:Encounter for annual general medical examination with abnormal findings in adult Start:02-May-2021 Instruction Type:Provider Instructions for Treatment How to Access Health Informa tion Online using Patient Portal and [employer] Apps Indication:Encounter for annual general medical examination with abnormal findings in adult Start:02-May-2021 Instruction Type:Patient Education Patient Instructions Indication:Non-smoker Start:24-Apr-2021 Instruction Type:Provider Instructions for Treatment How to Access Health Informa tion Online using Patient Portal and [employer] Apps Indication:Non-smoker Start:24-Apr-2021 Instruction Type:Patient Education Patient Instructions Indication:Non-smoker Start:23-Jul-2020 Instruction Type:Provider Instructions for Treatment How to Access Health Informa tion Online using Patient Portal and [employer] Apps Indication:Non-smoker Start:23-Jul-2020 Instruction Type:Patient Education Patient Instructions Indication:BMI 25.0-25.9,adult Start:28-Jun-2020 Instruction Type:Provider Instructions for Treatment How to Access Health Informa tion Online using Patient Portal and [employer] Apps Indication:BMI 25.0-25.9,adult Start:28-Jun-2020 Instruction Type:Patient Education How to Access Health Informa tion Online using Patient Portal and [employer] Apps Indication:Non-smoker Start:12-Jun-2020 Instruction Type:Patient Education Patient Instructions Indication:Non-smoker Start:12-Jun-2020 Instruction Type:Provider Instructions for Treatment How to Access Health Informa tion Online using Patient Portal and [employer] Apps Indication:Non-smoker Start:10-May-2020 Instruction Type:Patient Education Patient Instructions Indication:Non-smoker Start:10-May-2020 Instruction Type:Provider Instructions for Treatment How to access health informa tion online Indication:Shingles of eyelid Start:12-Apr-2020 Instruction Type:Patient Education How to access health informa tion online - Detail Indication:Shingles of eyelid Start:12-Apr-2020 Instruction Type:Patient Education Patient Instructions Indication:Shingles of eyelid Start:12-Apr-2020 Instruction Type:Provider Instructions for Treatment How to access health informa tion online Indication:BMI 25.0-25.9,adult Start:15-Dec-2019 Instruction Type:Patient Education How to access health informa tion online - Detail Indication:BMI 25.0-25.9,adult Start:15-Dec-2019 Instruction Type:Patient Education Patient Instructions Indication:BMI 25.0-25.9,adult Start:15-Dec-2019 Instruction Type:Provider Instructions for Treatment cardiovascular counseling Indication:Hypertension, essential, benign Start:01-Dec-2019 Instruction Type:Provider Instructions for Treatment How to access health informa tion online Indication:Non-smoker Start:01-Dec-2019 Instruction Type:Patient Education How to access health informa tion online - Detail Indication:Non-smoker Start:01-Dec-2019 Instruction Type:Patient Education Patient Instructions Indication:Non-smoker Start:01-Dec-2019 Instruction Type:Provider Instructions for Treatment How to access health informa tion online Indication:Non-smoker Start:07-Nov-2019 Instruction Type:Patient Education How to access health informa tion online - Detail Indication:Non-smoker Start:07-Nov-2019 Instruction Type:Patient Education Patient Instructions Indication:Non-smoker Start:07-Nov-2019 Instruction Type:Provider Instructions for Treatment How to access health informa tion online Indication:Non-smoker Start:01-Nov-2019 Instruction Type:Patient Education How to access health informa tion online - Detail Indication:Non-smoker Start:01-Nov-2019 Instruction Type:Patient Education Patient Instructions Indication:Non-smoker Start:01-Nov-2019 Instruction Type:Provider Instructions for Treatment How to access health informa tion online Indication:Non-smoker Start:07-Apr-2019 Instruction Type:Patient Education How to access health informa tion online - Detail Indication:Non-smoker Start:07-Apr-2019 Instruction Type:Patient Education Patient Instructions Indication:Non-smoker Start:07-Apr-2019 Instruction Type:Provider Instructions for Treatment How to access health informa tion online Indication:Non-smoker Start:03-Feb-2019 Instruction Type:Patient Education How to access health informa tion online - Detail Indication:Non-smoker Start:03-Feb-2019 Instruction Type:Patient Education Patient Instructions Indication:Non-smoker Start:03-Feb-2019 Instruction Type:Provider Instructions for Treatment How to access health informa tion online Indication:Hypertension, essential, benign Start:30-Dec-2018 Instruction Type:Patient Education How to access health informa tion online - Detail Indication:Hypertension, essential, benign Start:30-Dec-2018 Instruction Type:Patient Education Patient Instructions Indication:Hypertension, essential, benign Start:30-Dec-2018 Instruction Type:Provider Instructions for Treatment How to access health informa tion online Indication:BMI 26.0-26.9,adult Start:15-Dec-2016 Instruction Type:Patient Education How to access health informa tion online - Detail Indication:BMI 26.0-26.9,adult Start:15-Dec-2016 Instruction Type:Patient Education Patient Instructions Indication:BMI 26.0-26.9,adult Start:15-Dec-2016 Instruction Type:Provider Instructions for Treatment Patient Instructions Indication:Depression Start:26-Feb-2016 Instruction Type:Provider Instructions for Treatment How to access health informa tion online Indication:Medicare annual wellness visit, initial Start:20-Dec-2015 Instruction Type:Patient Education How to access health informa tion online - Detail Indication:Medicare annual wellness visit, initial Start:20-Dec-2015 Instruction Type:Patient Education Patient Instructions Indication:Medicare annual wellness visit, initial Start:20-Dec-2015 Instruction Type:Provider Instructions for Treatment How to access health informa tion online Indication:Depression Start:18-Oct-2015 Instruction Type:Patient Education How to access health informa tion online - Detail Indication:Depression Start:18-Oct-2015 Instruction Type:Patient Education Patient Instructions Indication:Depression Start:18-Oct-2015 Instruction Type:Provider Instructions for Treatment How to access health informa tion online Indication:Depression Start:18-Apr-2015 Instruction Type:Patient Education How to access health informa tion online - Detail Indication:Depression Start:18-Apr-2015 Instruction Type:Patient Education Patient Instructions Indication:Depression Start:18-Apr-2015 Instruction Type:Provider Instructions for Treatment How to access health informa tion online Indication:Depression Start:11-Oct-2014 Instruction Type:Patient Education How to access health informa tion online - Detail Indication:Depression Start:11-Oct-2014 Instruction Type:Patient Education Patient Instructions Indication:Depression Start:11-Oct-2014 Instruction Type:Provider Instructions for Treatment Patient Instructions Indication:Depression Start:19-Apr-2014 Instruction Type:Provider Instructions for Treatment Patient Instructions Indication:Hypertension, essential, benign Start:04-Oct-2013 Instruction Type:Provider Instructions for Treatment Patient Instructions Indication:Hypertension, essential, benign Start:15-Jun-2013 Instruction Type:Provider Instructions for Treatment Patient Instructions Indication:Hypertension, essential, benign Start:30-May-2013 Instruction Type:Provider Instructions for Treatment Patient Instructions Indication:Hypothyroidism Start:09-Mar-2013 Instruction Type:Provider Instructions for Treatment Patient Instructions Indication:Depression Start:10-Sep-2012 Instruction Type:Provider Instructions for Treatment [facility]; [facility] Work Phone: Instructions* Name Dates Details Patient Instructions Indication:BMI 28.0-28.9,adult Start:24-Sep-2022 Instruction Type:Provider Instructions for Treatment How to Access Health Informa tion Online using Patient Portal and [employer] Apps Indication:BMI 28.0-28.9,adult Start:24-Sep-2022 Instruction Type:Patient Education Patient Instructions Indication:BMI 28.0-28.9,adult Start:08-Sep-2022 Instruction Type:Provider Instructions for Treatment How to Access Health Informa tion Online using Patient Portal and [employer] Apps Indication:BMI 28.0-28.9,adult Start:08-Sep-2022 Instruction Type:Patient Education Patient Instructions Indication:BMI 28.0-28.9,adult Start:04-Jun-2022 Instruction Type:Provider Instructions for Treatment How to Access Health Informa tion Online using Patient Portal and [employer] Apps Indication:BMI 28.0-28.9,adult Start:04-Jun-2022 Instruction Type:Patient Education Patient Instructions Indication:BMI 28.0-28.9,adult Start:12-May-2022 Instruction Type:Provider Instructions for Treatment How to Access Health Informa tion Online using Patient Portal and [employer] Apps Indication:BMI 28.0-28.9,adult Start:12-May-2022 Instruction Type:Patient Education Patient Instructions Indication:BMI 27.0-27.9,adult Start:13-Mar-2022 Instruction Type:Provider Instructions for Treatment How to Access Health Informa tion Online using Patient Portal and [employer] Apps Indication:BMI 27.0-27.9,adult Start:13-Mar-2022 Instruction Type:Patient Education Patient Instructions Indication:BMI 26.0-26.9,adult Start:20-May-2021 Instruction Type:Provider Instructions for Treatment How to Access Health Informa tion Online using Patient Portal and [employer] Apps Indication:BMI 26.0-26.9,adult Start:20-May-2021 Instruction Type:Patient Education Patient Instructions Indication:Encounter for annual general medical examination with abnormal findings in adult Start:02-May-2021 Instruction Type:Provider Instructions for Treatment How to Access Health Informa tion Online using Patient Portal and [employer] Apps Indication:Encounter for annual general medical examination with abnormal findings in adult Start:02-May-2021 Instruction Type:Patient Education Patient Instructions Indication:Non-smoker Start:24-Apr-2021 Instruction Type:Provider Instructions for Treatment How to Access Health Informa tion Online using Patient Portal and [employer] Apps Indication:Non-smoker Start:24-Apr-2021 Instruction Type:Patient Education Patient Instructions Indication:Non-smoker Start:23-Jul-2020 Instruction Type:Provider Instructions for Treatment How to Access Health Informa tion Online using Patient Portal and [employer] Apps Indication:Non-smoker Start:23-Jul-2020 Instruction Type:Patient Education Patient Instructions Indication:BMI 25.0-25.9,adult Start:28-Jun-2020 Instruction Type:Provider Instructions for Treatment How to Access Health Informa tion Online using Patient Portal and [employer] Apps Indication:BMI 25.0-25.9,adult Start:28-Jun-2020 Instruction Type:Patient Education How to Access Health Informa tion Online using Patient Portal and [employer] Apps Indication:Non-smoker Start:12-Jun-2020 Instruction Type:Patient Education Patient Instructions Indication:Non-smoker Start:12-Jun-2020 Instruction Type:Provider Instructions for Treatment How to Access Health Informa tion Online using Patient Portal and [employer] Apps Indication:Non-smoker Start:10-May-2020 Instruction Type:Patient Education Patient Instructions Indication:Non-smoker Start:10-May-2020 Instruction Type:Provider Instructions for Treatment How to access health informa tion online Indication:Shingles of eyelid Start:12-Apr-2020 Instruction Type:Patient Education How to access health informa tion online - Detail Indication:Shingles of eyelid Start:12-Apr-2020 Instruction Type:Patient Education Patient Instructions Indication:Shingles of eyelid Start:12-Apr-2020 Instruction Type:Provider Instructions for Treatment How to access health informa tion online Indication:BMI 25.0-25.9,adult Start:15-Dec-2019 Instruction Type:Patient Education How to access health informa tion online - Detail Indication:BMI 25.0-25.9,adult Start:15-Dec-2019 Instruction Type:Patient Education Patient Instructions Indication:BMI 25.0-25.9,adult Start:15-Dec-2019 Instruction Type:Provider Instructions for Treatment cardiovascular counseling Indication:Hypertension, essential, benign Start:01-Dec-2019 Instruction Type:Provider Instructions for Treatment How to access health informa tion online Indication:Non-smoker Start:01-Dec-2019 Instruction Type:Patient Education How to access health informa tion online - Detail Indication:Non-smoker Start:01-Dec-2019 Instruction Type:Patient Education Patient Instructions Indication:Non-smoker Start:01-Dec-2019 Instruction Type:Provider Instructions for Treatment How to access health informa tion online Indication:Non-smoker Start:07-Nov-2019 Instruction Type:Patient Education How to access health informa tion online - Detail Indication:Non-smoker Start:07-Nov-2019 Instruction Type:Patient Education Patient Instructions Indication:Non-smoker Start:07-Nov-2019 Instruction Type:Provider Instructions for Treatment How to access health informa tion online Indication:Non-smoker Start:01-Nov-2019 Instruction Type:Patient Education How to access health informa tion online - Detail Indication:Non-smoker Start:01-Nov-2019 Instruction Type:Patient Education Patient Instructions Indication:Non-smoker Start:01-Nov-2019 Instruction Type:Provider Instructions for Treatment How to access health informa tion online Indication:Non-smoker Start:07-Apr-2019 Instruction Type:Patient Education How to access health informa tion online - Detail Indication:Non-smoker Start:07-Apr-2019 Instruction Type:Patient Education Patient Instructions Indication:Non-smoker Start:07-Apr-2019 Instruction Type:Provider Instructions for Treatment How to access health informa tion online Indication:Non-smoker Start:03-Feb-2019 Instruction Type:Patient Education How to access health informa tion online - Detail Indication:Non-smoker Start:03-Feb-2019 Instruction Type:Patient Education Patient Instructions Indication:Non-smoker Start:03-Feb-2019 Instruction Type:Provider Instructions for Treatment How to access health informa tion online Indication:Hypertension, essential, benign Start:30-Dec-2018 Instruction Type:Patient Education How to access health informa tion online - Detail Indication:Hypertension, essential, benign Start:30-Dec-2018 Instruction Type:Patient Education Patient Instructions Indication:Hypertension, essential, benign Start:30-Dec-2018 Instruction Type:Provider Instructions for Treatment How to access health informa tion online Indication:BMI 26.0-26.9,adult Start:15-Dec-2016 Instruction Type:Patient Education How to access health informa tion online - Detail Indication:BMI 26.0-26.9,adult Start:15-Dec-2016 Instruction Type:Patient Education Patient Instructions Indication:BMI 26.0-26.9,adult Start:15-Dec-2016 Instruction Type:Provider Instructions for Treatment Patient Instructions Indication:Depression Start:26-Feb-2016 Instruction Type:Provider Instructions for Treatment How to access health informa tion online Indication:Medicare annual wellness visit, initial Start:20-Dec-2015 Instruction Type:Patient Education How to access health informa tion online - Detail Indication:Medicare annual wellness visit, initial Start:20-Dec-2015 Instruction Type:Patient Education Patient Instructions Indication:Medicare annual wellness visit, initial Start:20-Dec-2015 Instruction Type:Provider Instructions for Treatment How to access health informa tion online Indication:Depression Start:18-Oct-2015 Instruction Type:Patient Education How to access health informa tion online - Detail Indication:Depression Start:18-Oct-2015 Instruction Type:Patient Education Patient Instructions Indication:Depression Start:18-Oct-2015 Instruction Type:Provider Instructions for Treatment How to access health informa tion online Indication:Depression Start:18-Apr-2015 Instruction Type:Patient Education How to access health informa tion online - Detail Indication:Depression Start:18-Apr-2015 Instruction Type:Patient Education Patient Instructions Indication:Depression Start:18-Apr-2015 Instruction Type:Provider Instructions for Treatment How to access health informa tion online Indication:Depression Start:11-Oct-2014 Instruction Type:Patient Education How to access health informa tion online - Detail Indication:Depression Start:11-Oct-2014 Instruction Type:Patient Education Patient Instructions Indication:Depression Start:11-Oct-2014 Instruction Type:Provider Instructions for Treatment Patient Instructions Indication:Depression Start:19-Apr-2014 Instruction Type:Provider Instructions for Treatment Patient Instructions Indication:Hypertension, essential, benign Start:04-Oct-2013 Instruction Type:Provider Instructions for Treatment Patient Instructions Indication:Hypertension, essential, benign Start:15-Jun-2013 Instruction Type:Provider Instructions for Treatment Patient Instructions Indication:Hypertension, essential, benign Start:30-May-2013 Instruction Type:Provider Instructions for Treatment Patient Instructions Indication:Hypothyroidism Start:09-Mar-2013 Instruction Type:Provider Instructions for Treatment Patient Instructions Indication:Depression Start:10-Sep-2012 Instruction Type:Provider Instructions for Treatment [facility]; [facility] Work Phone: Instructions* Name Dates Details Patient Instructions Indication:BMI 28.0-28.9,adult Start:24-Sep-2022 Instruction Type:Provider Instructions for Treatment How to Access Health Informa tion Online using Patient Portal and [employer] Apps Indication:BMI 28.0-28.9,adult Start:24-Sep-2022 Instruction Type:Patient Education Patient Instructions Indication:BMI 28.0-28.9,adult Start:08-Sep-2022 Instruction Type:Provider Instructions for Treatment How to Access Health Informa tion Online using Patient Portal and [employer] Apps Indication:BMI 28.0-28.9,adult Start:08-Sep-2022 Instruction Type:Patient Education Patient Instructions Indication:BMI 28.0-28.9,adult Start:04-Jun-2022 Instruction Type:Provider Instructions for Treatment How to Access Health Informa tion Online using Patient Portal and [employer] Apps Indication:BMI 28.0-28.9,adult Start:04-Jun-2022 Instruction Type:Patient Education Patient Instructions Indication:BMI 28.0-28.9,adult Start:12-May-2022 Instruction Type:Provider Instructions for Treatment How to Access Health Informa tion Online using Patient Portal and [employer] Apps Indication:BMI 28.0-28.9,adult Start:12-May-2022 Instruction Type:Patient Education Patient Instructions Indication:BMI 27.0-27.9,adult Start:13-Mar-2022 Instruction Type:Provider Instructions for Treatment How to Access Health Informa tion Online using Patient Portal and [employer] Apps Indication:BMI 27.0-27.9,adult Start:13-Mar-2022 Instruction Type:Patient Education Patient Instructions Indication:BMI 26.0-26.9,adult Start:20-May-2021 Instruction Type:Provider Instructions for Treatment How to Access Health Informa tion Online using Patient Portal and [employer] Apps Indication:BMI 26.0-26.9,adult Start:20-May-2021 Instruction Type:Patient Education Patient Instructions Indication:Encounter for annual general medical examination with abnormal findings in adult Start:02-May-2021 Instruction Type:Provider Instructions for Treatment How to Access Health Informa tion Online using Patient Portal and [employer] Apps Indication:Encounter for annual general medical examination with abnormal findings in adult Start:02-May-2021 Instruction Type:Patient Education Patient Instructions Indication:Non-smoker Start:24-Apr-2021 Instruction Type:Provider Instructions for Treatment How to Access Health Informa tion Online using Patient Portal and [employer] Apps Indication:Non-smoker Start:24-Apr-2021 Instruction Type:Patient Education Patient Instructions Indication:Non-smoker Start:23-Jul-2020 Instruction Type:Provider Instructions for Treatment How to Access Health Informa tion Online using Patient Portal and [employer] Apps Indication:Non-smoker Start:23-Jul-2020 Instruction Type:Patient Education Patient Instructions Indication:BMI 25.0-25.9,adult Start:28-Jun-2020 Instruction Type:Provider Instructions for Treatment How to Access Health Informa tion Online using Patient Portal and [employer] Apps Indication:BMI 25.0-25.9,adult Start:28-Jun-2020 Instruction Type:Patient Education How to Access Health Informa tion Online using Patient Portal and [employer] Apps Indication:Non-smoker Start:12-Jun-2020 Instruction Type:Patient Education Patient Instructions Indication:Non-smoker Start:12-Jun-2020 Instruction Type:Provider Instructions for Treatment How to Access Health Informa tion Online using Patient Portal and [employer] Apps Indication:Non-smoker Start:10-May-2020 Instruction Type:Patient Education Patient Instructions Indication:Non-smoker Start:10-May-2020 Instruction Type:Provider Instructions for Treatment How to access health informa tion online Indication:Shingles of eyelid Start:12-Apr-2020 Instruction Type:Patient Education How to access health informa tion online - Detail Indication:Shingles of eyelid Start:12-Apr-2020 Instruction Type:Patient Education Patient Instructions Indication:Shingles of eyelid Start:12-Apr-2020 Instruction Type:Provider Instructions for Treatment How to access health informa tion online Indication:BMI 25.0-25.9,adult Start:15-Dec-2019 Instruction Type:Patient Education How to access health informa tion online - Detail Indication:BMI 25.0-25.9,adult Start:15-Dec-2019 Instruction Type:Patient Education Patient Instructions Indication:BMI 25.0-25.9,adult Start:15-Dec-2019 Instruction Type:Provider Instructions for Treatment cardiovascular counseling Indication:Hypertension, essential, benign Start:01-Dec-2019 Instruction Type:Provider Instructions for Treatment How to access health informa tion online Indication:Non-smoker Start:01-Dec-2019 Instruction Type:Patient Education How to access health informa tion online - Detail Indication:Non-smoker Start:01-Dec-2019 Instruction Type:Patient Education Patient Instructions Indication:Non-smoker Start:01-Dec-2019 Instruction Type:Provider Instructions for Treatment How to access health informa tion online Indication:Non-smoker Start:07-Nov-2019 Instruction Type:Patient Education How to access health informa tion online - Detail Indication:Non-smoker Start:07-Nov-2019 Instruction Type:Patient Education Patient Instructions Indication:Non-smoker Start:07-Nov-2019 Instruction Type:Provider Instructions for Treatment How to access health informa tion online Indication:Non-smoker Start:01-Nov-2019 Instruction Type:Patient Education How to access health informa tion online - Detail Indication:Non-smoker Start:01-Nov-2019 Instruction Type:Patient Education Patient Instructions Indication:Non-smoker Start:01-Nov-2019 Instruction Type:Provider Instructions for Treatment How to access health informa tion online Indication:Non-smoker Start:07-Apr-2019 Instruction Type:Patient Education How to access health informa tion online - Detail Indication:Non-smoker Start:07-Apr-2019 Instruction Type:Patient Education Patient Instructions Indication:Non-smoker Start:07-Apr-2019 Instruction Type:Provider Instructions for Treatment How to access health informa tion online Indication:Non-smoker Start:03-Feb-2019 Instruction Type:Patient Education How to access health informa tion online - Detail Indication:Non-smoker Start:03-Feb-2019 Instruction Type:Patient Education Patient Instructions Indication:Non-smoker Start:03-Feb-2019 Instruction Type:Provider Instructions for Treatment How to access health informa tion online Indication:Hypertension, essential, benign Start:30-Dec-2018 Instruction Type:Patient Education How to access health informa tion online - Detail Indication:Hypertension, essential, benign Start:30-Dec-2018 Instruction Type:Patient Education Patient Instructions Indication:Hypertension, essential, benign Start:30-Dec-2018 Instruction Type:Provider Instructions for Treatment How to access health informa tion online Indication:BMI 26.0-26.9,adult Start:15-Dec-2016 Instruction Type:Patient Education How to access health informa tion online - Detail Indication:BMI 26.0-26.9,adult Start:15-Dec-2016 Instruction Type:Patient Education Patient Instructions Indication:BMI 26.0-26.9,adult Start:15-Dec-2016 Instruction Type:Provider Instructions for Treatment Patient Instructions Indication:Depression Start:26-Feb-2016 Instruction Type:Provider Instructions for Treatment How to access health informa tion online Indication:Medicare annual wellness visit, initial Start:20-Dec-2015 Instruction Type:Patient Education How to access health informa tion online - Detail Indication:Medicare annual wellness visit, initial Start:20-Dec-2015 Instruction Type:Patient Education Patient Instructions Indication:Medicare annual wellness visit, initial Start:20-Dec-2015 Instruction Type:Provider Instructions for Treatment How to access health informa tion online Indication:Depression Start:18-Oct-2015 Instruction Type:Patient Education How to access health informa tion online - Detail Indication:Depression Start:18-Oct-2015 Instruction Type:Patient Education Patient Instructions Indication:Depression Start:18-Oct-2015 Instruction Type:Provider Instructions for Treatment How to access health informa tion online Indication:Depression Start:18-Apr-2015 Instruction Type:Patient Education How to access health informa tion online - Detail Indication:Depression Start:18-Apr-2015 Instruction Type:Patient Education Patient Instructions Indication:Depression Start:18-Apr-2015 Instruction Type:Provider Instructions for Treatment How to access health informa tion online Indication:Depression Start:11-Oct-2014 Instruction Type:Patient Education How to access health informa tion online - Detail Indication:Depression Start:11-Oct-2014 Instruction Type:Patient Education Patient Instructions Indication:Depression Start:11-Oct-2014 Instruction Type:Provider Instructions for Treatment Patient Instructions Indication:Depression Start:19-Apr-2014 Instruction Type:Provider Instructions for Treatment Patient Instructions Indication:Hypertension, essential, benign Start:04-Oct-2013 Instruction Type:Provider Instructions for Treatment Patient Instructions Indication:Hypertension, essential, benign Start:15-Jun-2013 Instruction Type:Provider Instructions for Treatment Patient Instructions Indication:Hypertension, essential, benign Start:30-May-2013 Instruction Type:Provider Instructions for Treatment Patient Instructions Indication:Hypothyroidism Start:09-Mar-2013 Instruction Type:Provider Instructions for Treatment Patient Instructions Indication:Depression Start:10-Sep-2012 Instruction Type:Provider Instructions for Treatment [facility]; [facility] Work Phone: Instructions* Name Dates Details Patient Instructions Indication:BMI 28.0-28.9,adult Start:24-Sep-2022 Instruction Type:Provider Instructions for Treatment How to Access Health Informa tion Online using Patient Portal and [employer] Apps Indication:BMI 28.0-28.9,adult Start:24-Sep-2022 Instruction Type:Patient Education Patient Instructions Indication:BMI 28.0-28.9,adult Start:08-Sep-2022 Instruction Type:Provider Instructions for Treatment How to Access Health Informa tion Online using Patient Portal and [employer] Apps Indication:BMI 28.0-28.9,adult Start:08-Sep-2022 Instruction Type:Patient Education Patient Instructions Indication:BMI 28.0-28.9,adult Start:04-Jun-2022 Instruction Type:Provider Instructions for Treatment How to Access Health Informa tion Online using Patient Portal and [employer] Apps Indication:BMI 28.0-28.9,adult Start:04-Jun-2022 Instruction Type:Patient Education Patient Instructions Indication:BMI 28.0-28.9,adult Start:12-May-2022 Instruction Type:Provider Instructions for Treatment How to Access Health Informa tion Online using Patient Portal and [employer] Apps Indication:BMI 28.0-28.9,adult Start:12-May-2022 Instruction Type:Patient Education Patient Instructions Indication:BMI 27.0-27.9,adult Start:13-Mar-2022 Instruction Type:Provider Instructions for Treatment How to Access Health Informa tion Online using Patient Portal and [employer] Apps Indication:BMI 27.0-27.9,adult Start:13-Mar-2022 Instruction Type:Patient Education Patient Instructions Indication:BMI 26.0-26.9,adult Start:20-May-2021 Instruction Type:Provider Instructions for Treatment How to Access Health Informa tion Online using Patient Portal and [employer] Apps Indication:BMI 26.0-26.9,adult Start:20-May-2021 Instruction Type:Patient Education Patient Instructions Indication:Encounter for annual general medical examination with abnormal findings in adult Start:02-May-2021 Instruction Type:Provider Instructions for Treatment How to Access Health Informa tion Online using Patient Portal and [employer] Apps Indication:Encounter for annual general medical examination with abnormal findings in adult Start:02-May-2021 Instruction Type:Patient Education Patient Instructions Indication:Non-smoker Start:24-Apr-2021 Instruction Type:Provider Instructions for Treatment How to Access Health Informa tion Online using Patient Portal and [employer] Apps Indication:Non-smoker Start:24-Apr-2021 Instruction Type:Patient Education Patient Instructions Indication:Non-smoker Start:23-Jul-2020 Instruction Type:Provider Instructions for Treatment How to Access Health Informa tion Online using Patient Portal and [employer] Apps Indication:Non-smoker Start:23-Jul-2020 Instruction Type:Patient Education Patient Instructions Indication:BMI 25.0-25.9,adult Start:28-Jun-2020 Instruction Type:Provider Instructions for Treatment How to Access Health Informa tion Online using Patient Portal and [employer] Apps Indication:BMI 25.0-25.9,adult Start:28-Jun-2020 Instruction Type:Patient Education How to Access Health Informa tion Online using Patient Portal and [employer] Apps Indication:Non-smoker Start:12-Jun-2020 Instruction Type:Patient Education Patient Instructions Indication:Non-smoker Start:12-Jun-2020 Instruction Type:Provider Instructions for Treatment How to Access Health Informa tion Online using Patient Portal and [employer] Apps Indication:Non-smoker Start:10-May-2020 Instruction Type:Patient Education Patient Instructions Indication:Non-smoker Start:10-May-2020 Instruction Type:Provider Instructions for Treatment How to access health informa tion online Indication:Shingles of eyelid Start:12-Apr-2020 Instruction Type:Patient Education How to access health informa tion online - Detail Indication:Shingles of eyelid Start:12-Apr-2020 Instruction Type:Patient Education Patient Instructions Indication:Shingles of eyelid Start:12-Apr-2020 Instruction Type:Provider Instructions for Treatment How to access health informa tion online Indication:BMI 25.0-25.9,adult Start:15-Dec-2019 Instruction Type:Patient Education How to access health informa tion online - Detail Indication:BMI 25.0-25.9,adult Start:15-Dec-2019 Instruction Type:Patient Education Patient Instructions Indication:BMI 25.0-25.9,adult Start:15-Dec-2019 Instruction Type:Provider Instructions for Treatment cardiovascular counseling Indication:Hypertension, essential, benign Start:01-Dec-2019 Instruction Type:Provider Instructions for Treatment How to access health informa tion online Indication:Non-smoker Start:01-Dec-2019 Instruction Type:Patient Education How to access health informa tion online - Detail Indication:Non-smoker Start:01-Dec-2019 Instruction Type:Patient Education Patient Instructions Indication:Non-smoker Start:01-Dec-2019 Instruction Type:Provider Instructions for Treatment How to access health informa tion online Indication:Non-smoker Start:07-Nov-2019 Instruction Type:Patient Education How to access health informa tion online - Detail Indication:Non-smoker Start:07-Nov-2019 Instruction Type:Patient Education Patient Instructions Indication:Non-smoker Start:07-Nov-2019 Instruction Type:Provider Instructions for Treatment How to access health informa tion online Indication:Non-smoker Start:01-Nov-2019 Instruction Type:Patient Education How to access health informa tion online - Detail Indication:Non-smoker Start:01-Nov-2019 Instruction Type:Patient Education Patient Instructions Indication:Non-smoker Start:01-Nov-2019 Instruction Type:Provider Instructions for Treatment How to access health informa tion online Indication:Non-smoker Start:07-Apr-2019 Instruction Type:Patient Education How to access health informa tion online - Detail Indication:Non-smoker Start:07-Apr-2019 Instruction Type:Patient Education Patient Instructions Indication:Non-smoker Start:07-Apr-2019 Instruction Type:Provider Instructions for Treatment How to access health informa tion online Indication:Non-smoker Start:03-Feb-2019 Instruction Type:Patient Education How to access health informa tion online - Detail Indication:Non-smoker Start:03-Feb-2019 Instruction Type:Patient Education Patient Instructions Indication:Non-smoker Start:03-Feb-2019 Instruction Type:Provider Instructions for Treatment How to access health informa tion online Indication:Hypertension, essential, benign Start:30-Dec-2018 Instruction Type:Patient Education How to access health informa tion online - Detail Indication:Hypertension, essential, benign Start:30-Dec-2018 Instruction Type:Patient Education Patient Instructions Indication:Hypertension, essential, benign Start:30-Dec-2018 Instruction Type:Provider Instructions for Treatment How to access health informa tion online Indication:BMI 26.0-26.9,adult Start:15-Dec-2016 Instruction Type:Patient Education How to access health informa tion online - Detail Indication:BMI 26.0-26.9,adult Start:15-Dec-2016 Instruction Type:Patient Education Patient Instructions Indication:BMI 26.0-26.9,adult Start:15-Dec-2016 Instruction Type:Provider Instructions for Treatment Patient Instructions Indication:Depression Start:26-Feb-2016 Instruction Type:Provider Instructions for Treatment How to access health informa tion online Indication:Medicare annual wellness visit, initial Start:20-Dec-2015 Instruction Type:Patient Education How to access health informa tion online - Detail Indication:Medicare annual wellness visit, initial Start:20-Dec-2015 Instruction Type:Patient Education Patient Instructions Indication:Medicare annual wellness visit, initial Start:20-Dec-2015 Instruction Type:Provider Instructions for Treatment How to access health informa tion online Indication:Depression Start:18-Oct-2015 Instruction Type:Patient Education How to access health informa tion online - Detail Indication:Depression Start:18-Oct-2015 Instruction Type:Patient Education Patient Instructions Indication:Depression Start:18-Oct-2015 Instruction Type:Provider Instructions for Treatment How to access health informa tion online Indication:Depression Start:18-Apr-2015 Instruction Type:Patient Education How to access health informa tion online - Detail Indication:Depression Start:18-Apr-2015 Instruction Type:Patient Education Patient Instructions Indication:Depression Start:18-Apr-2015 Instruction Type:Provider Instructions for Treatment How to access health informa tion online Indication:Depression Start:11-Oct-2014 Instruction Type:Patient Education How to access health informa tion online - Detail Indication:Depression Start:11-Oct-2014 Instruction Type:Patient Education Patient Instructions Indication:Depression Start:11-Oct-2014 Instruction Type:Provider Instructions for Treatment Patient Instructions Indication:Depression Start:19-Apr-2014 Instruction Type:Provider Instructions for Treatment Patient Instructions Indication:Hypertension, essential, benign Start:04-Oct-2013 Instruction Type:Provider Instructions for Treatment Patient Instructions Indication:Hypertension, essential, benign Start:15-Jun-2013 Instruction Type:Provider Instructions for Treatment Patient Instructions Indication:Hypertension, essential, benign Start:30-May-2013 Instruction Type:Provider Instructions for Treatment Patient Instructions Indication:Hypothyroidism Start:09-Mar-2013 Instruction Type:Provider Instructions for Treatment Patient Instructions Indication:Depression Start:10-Sep-2012 Instruction Type:Provider Instructions for Treatment [facility]; [facility] Work Phone: Instructions* Name Dates Details Patient Instructions Indication:Nonsmoker Start:19-Feb-2023 Instruction Type:Provider Instructions for Treatment How to Access Health Informa tion Online using Patient Portal and [employer] Apps Indication:Nonsmoker Start:19-Feb-2023 Instruction Type:Patient Education Patient Instructions Indication:Nonsmoker Start:09-Feb-2023 Instruction Type:Provider Instructions for Treatment How to Access Health Informa tion Online using Patient Portal and [employer] Apps Indication:Nonsmoker Start:09-Feb-2023 Instruction Type:Patient Education Patient Instructions Indication:BMI 28.0-28.9,adult Start:24-Sep-2022 Instruction Type:Provider Instructions for Treatment How to Access Health Informa tion Online using Patient Portal and [employer] Apps Indication:BMI 28.0-28.9,adult Start:24-Sep-2022 Instruction Type:Patient Education Patient Instructions Indication:BMI 28.0-28.9,adult Start:08-Sep-2022 Instruction Type:Provider Instructions for Treatment How to Access Health Informa tion Online using Patient Portal and [employer] Apps Indication:BMI 28.0-28.9,adult Start:08-Sep-2022 Instruction Type:Patient Education Patient Instructions Indication:BMI 28.0-28.9,adult Start:04-Jun-2022 Instruction Type:Provider Instructions for Treatment How to Access Health Informa tion Online using Patient Portal and [employer] Apps Indication:BMI 28.0-28.9,adult Start:04-Jun-2022 Instruction Type:Patient Education Patient Instructions Indication:BMI 28.0-28.9,adult Start:12-May-2022 Instruction Type:Provider Instructions for Treatment How to Access Health Informa tion Online using Patient Portal and [employer] Apps Indication:BMI 28.0-28.9,adult Start:12-May-2022 Instruction Type:Patient Education Patient Instructions Indication:BMI 27.0-27.9,adult Start:13-Mar-2022 Instruction Type:Provider Instructions for Treatment How to Access Health Informa tion Online using Patient Portal and [employer] Apps Indication:BMI 27.0-27.9,adult Start:13-Mar-2022 Instruction Type:Patient Education Patient Instructions Indication:BMI 26.0-26.9,adult Start:20-May-2021 Instruction Type:Provider Instructions for Treatment How to Access Health Informa tion Online using Patient Portal and [employer] Apps Indication:BMI 26.0-26.9,adult Start:20-May-2021 Instruction Type:Patient Education Patient Instructions Indication:Encounter for annual general medical examination with abnormal findings in adult Start:02-May-2021 Instruction Type:Provider Instructions for Treatment How to Access Health Informa tion Online using Patient Portal and [employer] Apps Indication:Encounter for annual general medical examination with abnormal findings in adult Start:02-May-2021 Instruction Type:Patient Education Patient Instructions Indication:Non-smoker Start:24-Apr-2021 Instruction Type:Provider Instructions for Treatment How to Access Health Informa tion Online using Patient Portal and [employer] Apps Indication:Non-smoker Start:24-Apr-2021 Instruction Type:Patient Education Patient Instructions Indication:Non-smoker Start:23-Jul-2020 Instruction Type:Provider Instructions for Treatment How to Access Health Informa tion Online using Patient Portal and [employer] Apps Indication:Non-smoker Start:23-Jul-2020 Instruction Type:Patient Education Patient Instructions Indication:BMI 25.0-25.9,adult Start:28-Jun-2020 Instruction Type:Provider Instructions for Treatment How to Access Health Informa tion Online using Patient Portal and [employer] Apps Indication:BMI 25.0-25.9,adult Start:28-Jun-2020 Instruction Type:Patient Education How to Access Health Informa tion Online using Patient Portal and [employer] Apps Indication:Non-smoker Start:12-Jun-2020 Instruction Type:Patient Education Patient Instructions Indication:Non-smoker Start:12-Jun-2020 Instruction Type:Provider Instructions for Treatment How to Access Health Informa tion Online using Patient Portal and [employer] Apps Indication:Non-smoker Start:10-May-2020 Instruction Type:Patient Education Patient Instructions Indication:Non-smoker Start:10-May-2020 Instruction Type:Provider Instructions for Treatment How to access health informa tion online Indication:Shingles of eyelid Start:12-Apr-2020 Instruction Type:Patient Education How to access health informa tion online - Detail Indication:Shingles of eyelid Start:12-Apr-2020 Instruction Type:Patient Education Patient Instructions Indication:Shingles of eyelid Start:12-Apr-2020 Instruction Type:Provider Instructions for Treatment How to access health informa tion online Indication:BMI 25.0-25.9,adult Start:15-Dec-2019 Instruction Type:Patient Education How to access health informa tion online - Detail Indication:BMI 25.0-25.9,adult Start:15-Dec-2019 Instruction Type:Patient Education Patient Instructions Indication:BMI 25.0-25.9,adult Start:15-Dec-2019 Instruction Type:Provider Instructions for Treatment cardiovascular counseling Indication:Hypertension, essential, benign Start:01-Dec-2019 Instruction Type:Provider Instructions for Treatment How to access health informa tion online Indication:Non-smoker Start:01-Dec-2019 Instruction Type:Patient Education How to access health informa tion online - Detail Indication:Non-smoker Start:01-Dec-2019 Instruction Type:Patient Education Patient Instructions Indication:Non-smoker Start:01-Dec-2019 Instruction Type:Provider Instructions for Treatment How to access health informa tion online Indication:Non-smoker Start:07-Nov-2019 Instruction Type:Patient Education How to access health informa tion online - Detail Indication:Non-smoker Start:07-Nov-2019 Instruction Type:Patient Education Patient Instructions Indication:Non-smoker Start:07-Nov-2019 Instruction Type:Provider Instructions for Treatment How to access health informa tion online Indication:Non-smoker Start:01-Nov-2019 Instruction Type:Patient Education How to access health informa tion online - Detail Indication:Non-smoker Start:01-Nov-2019 Instruction Type:Patient Education Patient Instructions Indication:Non-smoker Start:01-Nov-2019 Instruction Type:Provider Instructions for Treatment How to access health informa tion online Indication:Non-smoker Start:07-Apr-2019 Instruction Type:Patient Education How to access health informa tion online - Detail Indication:Non-smoker Start:07-Apr-2019 Instruction Type:Patient Education Patient Instructions Indication:Non-smoker Start:07-Apr-2019 Instruction Type:Provider Instructions for Treatment How to access health informa tion online Indication:Non-smoker Start:03-Feb-2019 Instruction Type:Patient Education How to access health informa tion online - Detail Indication:Non-smoker Start:03-Feb-2019 Instruction Type:Patient Education Patient Instructions Indication:Non-smoker Start:03-Feb-2019 Instruction Type:Provider Instructions for Treatment How to access health informa tion online Indication:Hypertension, essential, benign Start:30-Dec-2018 Instruction Type:Patient Education How to access health informa tion online - Detail Indication:Hypertension, essential, benign Start:30-Dec-2018 Instruction Type:Patient Education Patient Instructions Indication:Hypertension, essential, benign Start:30-Dec-2018 Instruction Type:Provider Instructions for Treatment How to access health informa tion online Indication:BMI 26.0-26.9,adult Start:15-Dec-2016 Instruction Type:Patient Education How to access health informa tion online - Detail Indication:BMI 26.0-26.9,adult Start:15-Dec-2016 Instruction Type:Patient Education Patient Instructions Indication:BMI 26.0-26.9,adult Start:15-Dec-2016 Instruction Type:Provider Instructions for Treatment Patient Instructions Indication:Depression Start:26-Feb-2016 Instruction Type:Provider Instructions for Treatment How to access health informa tion online Indication:Medicare annual wellness visit, initial Start:20-Dec-2015 Instruction Type:Patient Education How to access health informa tion online - Detail Indication:Medicare annual wellness visit, initial Start:20-Dec-2015 Instruction Type:Patient Education Patient Instructions Indication:Medicare annual wellness visit, initial Start:20-Dec-2015 Instruction Type:Provider Instructions for Treatment How to access health informa tion online Indication:Depression Start:18-Oct-2015 Instruction Type:Patient Education How to access health informa tion online - Detail Indication:Depression Start:18-Oct-2015 Instruction Type:Patient Education Patient Instructions Indication:Depression Start:18-Oct-2015 Instruction Type:Provider Instructions for Treatment How to access health informa tion online Indication:Depression Start:18-Apr-2015 Instruction Type:Patient Education How to access health informa tion online - Detail Indication:Depression Start:18-Apr-2015 Instruction Type:Patient Education Patient Instructions Indication:Depression Start:18-Apr-2015 Instruction Type:Provider Instructions for Treatment How to access health informa tion online Indication:Depression Start:11-Oct-2014 Instruction Type:Patient Education How to access health informa tion online - Detail Indication:Depression Start:11-Oct-2014 Instruction Type:Patient Education Patient Instructions Indication:Depression Start:11-Oct-2014 Instruction Type:Provider Instructions for Treatment Patient Instructions Indication:Depression Start:19-Apr-2014 Instruction Type:Provider Instructions for Treatment Patient Instructions Indication:Hypertension, essential, benign Start:04-Oct-2013 Instruction Type:Provider Instructions for Treatment Patient Instructions Indication:Hypertension, essential, benign Start:15-Jun-2013 Instruction Type:Provider Instructions for Treatment Patient Instructions Indication:Hypertension, essential, benign Start:30-May-2013 Instruction Type:Provider Instructions for Treatment Patient Instructions Indication:Hypothyroidism Start:09-Mar-2013 Instruction Type:Provider Instructions for Treatment Patient Instructions Indication:Depression Start:10-Sep-2012 Instruction Type:Provider Instructions for Treatment [facility]; [facility] Work Phone: Instructions* Name Dates Details Patient Instructions Indication:Nonsmoker Start:19-Feb-2023 Instruction Type:Provider Instructions for Treatment How to Access Health Informa tion Online using Patient Portal and [employer] Apps Indication:Nonsmoker Start:19-Feb-2023 Instruction Type:Patient Education Patient Instructions Indication:Nonsmoker Start:09-Feb-2023 Instruction Type:Provider Instructions for Treatment How to Access Health Informa tion Online using Patient Portal and [employer] Apps Indication:Nonsmoker Start:09-Feb-2023 Instruction Type:Patient Education Patient Instructions Indication:BMI 28.0-28.9,adult Start:24-Sep-2022 Instruction Type:Provider Instructions for Treatment How to Access Health Informa tion Online using Patient Portal and [employer] Apps Indication:BMI 28.0-28.9,adult Start:24-Sep-2022 Instruction Type:Patient Education Patient Instructions Indication:BMI 28.0-28.9,adult Start:08-Sep-2022 Instruction Type:Provider Instructions for Treatment How to Access Health Informa tion Online using Patient Portal and [employer] Apps Indication:BMI 28.0-28.9,adult Start:08-Sep-2022 Instruction Type:Patient Education Patient Instructions Indication:BMI 28.0-28.9,adult Start:04-Jun-2022 Instruction Type:Provider Instructions for Treatment How to Access Health Informa tion Online using Patient Portal and [employer] Apps Indication:BMI 28.0-28.9,adult Start:04-Jun-2022 Instruction Type:Patient Education Patient Instructions Indication:BMI 28.0-28.9,adult Start:12-May-2022 Instruction Type:Provider Instructions for Treatment How to Access Health Informa tion Online using Patient Portal and [employer] Apps Indication:BMI 28.0-28.9,adult Start:12-May-2022 Instruction Type:Patient Education Patient Instructions Indication:BMI 27.0-27.9,adult Start:13-Mar-2022 Instruction Type:Provider Instructions for Treatment How to Access Health Informa tion Online using Patient Portal and [employer] Apps Indication:BMI 27.0-27.9,adult Start:13-Mar-2022 Instruction Type:Patient Education Patient Instructions Indication:BMI 26.0-26.9,adult Start:20-May-2021 Instruction Type:Provider Instructions for Treatment How to Access Health Informa tion Online using Patient Portal and [employer] Apps Indication:BMI 26.0-26.9,adult Start:20-May-2021 Instruction Type:Patient Education Patient Instructions Indication:Encounter for annual general medical examination with abnormal findings in adult Start:02-May-2021 Instruction Type:Provider Instructions for Treatment How to Access Health Informa tion Online using Patient Portal and [employer] Apps Indication:Encounter for annual general medical examination with abnormal findings in adult Start:02-May-2021 Instruction Type:Patient Education Patient Instructions Indication:Non-smoker Start:24-Apr-2021 Instruction Type:Provider Instructions for Treatment How to Access Health Informa tion Online using Patient Portal and [employer] Apps Indication:Non-smoker Start:24-Apr-2021 Instruction Type:Patient Education Patient Instructions Indication:Non-smoker Start:23-Jul-2020 Instruction Type:Provider Instructions for Treatment How to Access Health Informa tion Online using Patient Portal and [employer] Apps Indication:Non-smoker Start:23-Jul-2020 Instruction Type:Patient Education Patient Instructions Indication:BMI 25.0-25.9,adult Start:28-Jun-2020 Instruction Type:Provider Instructions for Treatment How to Access Health Informa tion Online using Patient Portal and [employer] Apps Indication:BMI 25.0-25.9,adult Start:28-Jun-2020 Instruction Type:Patient Education How to Access Health Informa tion Online using Patient Portal and [employer] Apps Indication:Non-smoker Start:12-Jun-2020 Instruction Type:Patient Education Patient Instructions Indication:Non-smoker Start:12-Jun-2020 Instruction Type:Provider Instructions for Treatment How to Access Health Informa tion Online using Patient Portal and [employer] Apps Indication:Non-smoker Start:10-May-2020 Instruction Type:Patient Education Patient Instructions Indication:Non-smoker Start:10-May-2020 Instruction Type:Provider Instructions for Treatment How to access health informa tion online Indication:Shingles of eyelid Start:12-Apr-2020 Instruction Type:Patient Education How to access health informa tion online - Detail Indication:Shingles of eyelid Start:12-Apr-2020 Instruction Type:Patient Education Patient Instructions Indication:Shingles of eyelid Start:12-Apr-2020 Instruction Type:Provider Instructions for Treatment How to access health informa tion online Indication:BMI 25.0-25.9,adult Start:15-Dec-2019 Instruction Type:Patient Education How to access health informa tion online - Detail Indication:BMI 25.0-25.9,adult Start:15-Dec-2019 Instruction Type:Patient Education Patient Instructions Indication:BMI 25.0-25.9,adult Start:15-Dec-2019 Instruction Type:Provider Instructions for Treatment cardiovascular counseling Indication:Hypertension, essential, benign Start:01-Dec-2019 Instruction Type:Provider Instructions for Treatment How to access health informa tion online Indication:Non-smoker Start:01-Dec-2019 Instruction Type:Patient Education How to access health informa tion online - Detail Indication:Non-smoker Start:01-Dec-2019 Instruction Type:Patient Education Patient Instructions Indication:Non-smoker Start:01-Dec-2019 Instruction Type:Provider Instructions for Treatment How to access health informa tion online Indication:Non-smoker Start:07-Nov-2019 Instruction Type:Patient Education How to access health informa tion online - Detail Indication:Non-smoker Start:07-Nov-2019 Instruction Type:Patient Education Patient Instructions Indication:Non-smoker Start:07-Nov-2019 Instruction Type:Provider Instructions for Treatment How to access health informa tion online Indication:Non-smoker Start:01-Nov-2019 Instruction Type:Patient Education How to access health informa tion online - Detail Indication:Non-smoker Start:01-Nov-2019 Instruction Type:Patient Education Patient Instructions Indication:Non-smoker Start:01-Nov-2019 Instruction Type:Provider Instructions for Treatment How to access health informa tion online Indication:Non-smoker Start:07-Apr-2019 Instruction Type:Patient Education How to access health informa tion online - Detail Indication:Non-smoker Start:07-Apr-2019 Instruction Type:Patient Education Patient Instructions Indication:Non-smoker Start:07-Apr-2019 Instruction Type:Provider Instructions for Treatment How to access health informa tion online Indication:Non-smoker Start:03-Feb-2019 Instruction Type:Patient Education How to access health informa tion online - Detail Indication:Non-smoker Start:03-Feb-2019 Instruction Type:Patient Education Patient Instructions Indication:Non-smoker Start:03-Feb-2019 Instruction Type:Provider Instructions for Treatment How to access health informa tion online Indication:Hypertension, essential, benign Start:30-Dec-2018 Instruction Type:Patient Education How to access health informa tion online - Detail Indication:Hypertension, essential, benign Start:30-Dec-2018 Instruction Type:Patient Education Patient Instructions Indication:Hypertension, essential, benign Start:30-Dec-2018 Instruction Type:Provider Instructions for Treatment How to access health informa tion online Indication:BMI 26.0-26.9,adult Start:15-Dec-2016 Instruction Type:Patient Education How to access health informa tion online - Detail Indication:BMI 26.0-26.9,adult Start:15-Dec-2016 Instruction Type:Patient Education Patient Instructions Indication:BMI 26.0-26.9,adult Start:15-Dec-2016 Instruction Type:Provider Instructions for Treatment Patient Instructions Indication:Depression Start:26-Feb-2016 Instruction Type:Provider Instructions for Treatment How to access health informa tion online Indication:Medicare annual wellness visit, initial Start:20-Dec-2015 Instruction Type:Patient Education How to access health informa tion online - Detail Indication:Medicare annual wellness visit, initial Start:20-Dec-2015 Instruction Type:Patient Education Patient Instructions Indication:Medicare annual wellness visit, initial Start:20-Dec-2015 Instruction Type:Provider Instructions for Treatment How to access health informa tion online Indication:Depression Start:18-Oct-2015 Instruction Type:Patient Education How to access health informa tion online - Detail Indication:Depression Start:18-Oct-2015 Instruction Type:Patient Education Patient Instructions Indication:Depression Start:18-Oct-2015 Instruction Type:Provider Instructions for Treatment How to access health informa tion online Indication:Depression Start:18-Apr-2015 Instruction Type:Patient Education How to access health informa tion online - Detail Indication:Depression Start:18-Apr-2015 Instruction Type:Patient Education Patient Instructions Indication:Depression Start:18-Apr-2015 Instruction Type:Provider Instructions for Treatment How to access health informa tion online Indication:Depression Start:11-Oct-2014 Instruction Type:Patient Education How to access health informa tion online - Detail Indication:Depression Start:11-Oct-2014 Instruction Type:Patient Education Patient Instructions Indication:Depression Start:11-Oct-2014 Instruction Type:Provider Instructions for Treatment Patient Instructions Indication:Depression Start:19-Apr-2014 Instruction Type:Provider Instructions for Treatment Patient Instructions Indication:Hypertension, essential, benign Start:04-Oct-2013 Instruction Type:Provider Instructions for Treatment Patient Instructions Indication:Hypertension, essential, benign Start:15-Jun-2013 Instruction Type:Provider Instructions for Treatment Patient Instructions Indication:Hypertension, essential, benign Start:30-May-2013 Instruction Type:Provider Instructions for Treatment Patient Instructions Indication:Hypothyroidism Start:09-Mar-2013 Instruction Type:Provider Instructions for Treatment Patient Instructions Indication:Depression Start:10-Sep-2012 Instruction Type:Provider Instructions for Treatment [facility]; [facility] Work Phone: Instructions* Name Dates Details Patient Instructions Indication:Nonsmoker Start:19-Feb-2023 Instruction Type:Provider Instructions for Treatment How to Access Health Informa tion Online using Patient Portal and [employer] Apps Indication:Nonsmoker Start:19-Feb-2023 Instruction Type:Patient Education Patient Instructions Indication:Nonsmoker Start:09-Feb-2023 Instruction Type:Provider Instructions for Treatment How to Access Health Informa tion Online using Patient Portal and [employer] Apps Indication:Nonsmoker Start:09-Feb-2023 Instruction Type:Patient Education Patient Instructions Indication:BMI 28.0-28.9,adult Start:24-Sep-2022 Instruction Type:Provider Instructions for Treatment How to Access Health Informa tion Online using Patient Portal and [employer] Apps Indication:BMI 28.0-28.9,adult Start:24-Sep-2022 Instruction Type:Patient Education Patient Instructions Indication:BMI 28.0-28.9,adult Start:08-Sep-2022 Instruction Type:Provider Instructions for Treatment How to Access Health Informa tion Online using Patient Portal and [employer] Apps Indication:BMI 28.0-28.9,adult Start:08-Sep-2022 Instruction Type:Patient Education Patient Instructions Indication:BMI 28.0-28.9,adult Start:04-Jun-2022 Instruction Type:Provider Instructions for Treatment How to Access Health Informa tion Online using Patient Portal and [employer] Apps Indication:BMI 28.0-28.9,adult Start:04-Jun-2022 Instruction Type:Patient Education Patient Instructions Indication:BMI 28.0-28.9,adult Start:12-May-2022 Instruction Type:Provider Instructions for Treatment How to Access Health Informa tion Online using Patient Portal and [employer] Apps Indication:BMI 28.0-28.9,adult Start:12-May-2022 Instruction Type:Patient Education Patient Instructions Indication:BMI 27.0-27.9,adult Start:13-Mar-2022 Instruction Type:Provider Instructions for Treatment How to Access Health Informa tion Online using Patient Portal and [employer] Apps Indication:BMI 27.0-27.9,adult Start:13-Mar-2022 Instruction Type:Patient Education Patient Instructions Indication:BMI 26.0-26.9,adult Start:20-May-2021 Instruction Type:Provider Instructions for Treatment How to Access Health Informa tion Online using Patient Portal and [employer] Apps Indication:BMI 26.0-26.9,adult Start:20-May-2021 Instruction Type:Patient Education Patient Instructions Indication:Encounter for annual general medical examination with abnormal findings in adult Start:02-May-2021 Instruction Type:Provider Instructions for Treatment How to Access Health Informa tion Online using Patient Portal and [employer] Apps Indication:Encounter for annual general medical examination with abnormal findings in adult Start:02-May-2021 Instruction Type:Patient Education Patient Instructions Indication:Non-smoker Start:24-Apr-2021 Instruction Type:Provider Instructions for Treatment How to Access Health Informa tion Online using Patient Portal and [employer] Apps Indication:Non-smoker Start:24-Apr-2021 Instruction Type:Patient Education Patient Instructions Indication:Non-smoker Start:23-Jul-2020 Instruction Type:Provider Instructions for Treatment How to Access Health Informa tion Online using Patient Portal and [employer] Apps Indication:Non-smoker Start:23-Jul-2020 Instruction Type:Patient Education Patient Instructions Indication:BMI 25.0-25.9,adult Start:28-Jun-2020 Instruction Type:Provider Instructions for Treatment How to Access Health Informa tion Online using Patient Portal and [employer] Apps Indication:BMI 25.0-25.9,adult Start:28-Jun-2020 Instruction Type:Patient Education How to Access Health Informa tion Online using Patient Portal and [employer] Apps Indication:Non-smoker Start:12-Jun-2020 Instruction Type:Patient Education Patient Instructions Indication:Non-smoker Start:12-Jun-2020 Instruction Type:Provider Instructions for Treatment How to Access Health Informa tion Online using Patient Portal and [employer] Apps Indication:Non-smoker Start:10-May-2020 Instruction Type:Patient Education Patient Instructions Indication:Non-smoker Start:10-May-2020 Instruction Type:Provider Instructions for Treatment How to access health informa tion online Indication:Shingles of eyelid Start:12-Apr-2020 Instruction Type:Patient Education How to access health informa tion online - Detail Indication:Shingles of eyelid Start:12-Apr-2020 Instruction Type:Patient Education Patient Instructions Indication:Shingles of eyelid Start:12-Apr-2020 Instruction Type:Provider Instructions for Treatment How to access health informa tion online Indication:BMI 25.0-25.9,adult Start:15-Dec-2019 Instruction Type:Patient Education How to access health informa tion online - Detail Indication:BMI 25.0-25.9,adult Start:15-Dec-2019 Instruction Type:Patient Education Patient Instructions Indication:BMI 25.0-25.9,adult Start:15-Dec-2019 Instruction Type:Provider Instructions for Treatment cardiovascular counseling Indication:Hypertension, essential, benign Start:01-Dec-2019 Instruction Type:Provider Instructions for Treatment How to access health informa tion online Indication:Non-smoker Start:01-Dec-2019 Instruction Type:Patient Education How to access health informa tion online - Detail Indication:Non-smoker Start:01-Dec-2019 Instruction Type:Patient Education Patient Instructions Indication:Non-smoker Start:01-Dec-2019 Instruction Type:Provider Instructions for Treatment How to access health informa tion online Indication:Non-smoker Start:07-Nov-2019 Instruction Type:Patient Education How to access health informa tion online - Detail Indication:Non-smoker Start:07-Nov-2019 Instruction Type:Patient Education Patient Instructions Indication:Non-smoker Start:07-Nov-2019 Instruction Type:Provider Instructions for Treatment How to access health informa tion online Indication:Non-smoker Start:01-Nov-2019 Instruction Type:Patient Education How to access health informa tion online - Detail Indication:Non-smoker Start:01-Nov-2019 Instruction Type:Patient Education Patient Instructions Indication:Non-smoker Start:01-Nov-2019 Instruction Type:Provider Instructions for Treatment How to access health informa tion online Indication:Non-smoker Start:07-Apr-2019 Instruction Type:Patient Education How to access health informa tion online - Detail Indication:Non-smoker Start:07-Apr-2019 Instruction Type:Patient Education Patient Instructions Indication:Non-smoker Start:07-Apr-2019 Instruction Type:Provider Instructions for Treatment How to access health informa tion online Indication:Non-smoker Start:03-Feb-2019 Instruction Type:Patient Education How to access health informa tion online - Detail Indication:Non-smoker Start:03-Feb-2019 Instruction Type:Patient Education Patient Instructions Indication:Non-smoker Start:03-Feb-2019 Instruction Type:Provider Instructions for Treatment How to access health informa tion online Indication:Hypertension, essential, benign Start:30-Dec-2018 Instruction Type:Patient Education How to access health informa tion online - Detail Indication:Hypertension, essential, benign Start:30-Dec-2018 Instruction Type:Patient Education Patient Instructions Indication:Hypertension, essential, benign Start:30-Dec-2018 Instruction Type:Provider Instructions for Treatment How to access health informa tion online Indication:BMI 26.0-26.9,adult Start:15-Dec-2016 Instruction Type:Patient Education How to access health informa tion online - Detail Indication:BMI 26.0-26.9,adult Start:15-Dec-2016 Instruction Type:Patient Education Patient Instructions Indication:BMI 26.0-26.9,adult Start:15-Dec-2016 Instruction Type:Provider Instructions for Treatment Patient Instructions Indication:Depression Start:26-Feb-2016 Instruction Type:Provider Instructions for Treatment How to access health informa tion online Indication:Medicare annual wellness visit, initial Start:20-Dec-2015 Instruction Type:Patient Education How to access health informa tion online - Detail Indication:Medicare annual wellness visit, initial Start:20-Dec-2015 Instruction Type:Patient Education Patient Instructions Indication:Medicare annual wellness visit, initial Start:20-Dec-2015 Instruction Type:Provider Instructions for Treatment How to access health informa tion online Indication:Depression Start:18-Oct-2015 Instruction Type:Patient Education How to access health informa tion online - Detail Indication:Depression Start:18-Oct-2015 Instruction Type:Patient Education Patient Instructions Indication:Depression Start:18-Oct-2015 Instruction Type:Provider Instructions for Treatment How to access health informa tion online Indication:Depression Start:18-Apr-2015 Instruction Type:Patient Education How to access health informa tion online - Detail Indication:Depression Start:18-Apr-2015 Instruction Type:Patient Education Patient Instructions Indication:Depression Start:18-Apr-2015 Instruction Type:Provider Instructions for Treatment How to access health informa tion online Indication:Depression Start:11-Oct-2014 Instruction Type:Patient Education How to access health informa tion online - Detail Indication:Depression Start:11-Oct-2014 Instruction Type:Patient Education Patient Instructions Indication:Depression Start:11-Oct-2014 Instruction Type:Provider Instructions for Treatment Patient Instructions Indication:Depression Start:19-Apr-2014 Instruction Type:Provider Instructions for Treatment Patient Instructions Indication:Hypertension, essential, benign Start:04-Oct-2013 Instruction Type:Provider Instructions for Treatment Patient Instructions Indication:Hypertension, essential, benign Start:15-Jun-2013 Instruction Type:Provider Instructions for Treatment Patient Instructions Indication:Hypertension, essential, benign Start:30-May-2013 Instruction Type:Provider Instructions for Treatment Patient Instructions Indication:Hypothyroidism Start:09-Mar-2013 Instruction Type:Provider Instructions for Treatment Patient Instructions Indication:Depression Start:10-Sep-2012 Instruction Type:Provider Instructions for Treatment [facility]; [facility] Work Phone: Instructions* Name Dates Details Patient Instructions Indication:Nonsmoker Start:19-Feb-2023 Instruction Type:Provider Instructions for Treatment How to Access Health Informa tion Online using Patient Portal and [employer] Apps Indication:Nonsmoker Start:19-Feb-2023 Instruction Type:Patient Education Patient Instructions Indication:Nonsmoker Start:09-Feb-2023 Instruction Type:Provider Instructions for Treatment How to Access Health Informa tion Online using Patient Portal and [employer] Apps Indication:Nonsmoker Start:09-Feb-2023 Instruction Type:Patient Education Patient Instructions Indication:BMI 28.0-28.9,adult Start:24-Sep-2022 Instruction Type:Provider Instructions for Treatment How to Access Health Informa tion Online using Patient Portal and [employer] Indication:BMI 28.0-28.9,adult Start:24-Sep-2022 Instruction Type:Patient Education Patient Instructions Indication:BMI 28.0-28.9,adult Start:08-Sep-2022 Instruction Type:Provider Instructions for Treatment How to Access Health Informa tion Online using Patient Portal and [employer] Apps Indication:BMI 28.0-28.9,adult Start:08-Sep-2022 Instruction Type:Patient Education Patient Instructions Indication:BMI 28.0-28.9,adult Start:04-Jun-2022 Instruction Type:Provider Instructions for Treatment How to Access Health Informa tion Online using Patient Portal and [employer] Apps Indication:BMI 28.0-28.9,adult Start:04-Jun-2022 Instruction Type:Patient Education Patient Instructions Indication:BMI 28.0-28.9,adult Start:12-May-2022 Instruction Type:Provider Instructions for Treatment How to Access Health Informa tion Online using Patient Portal and [employer] Apps Indication:BMI 28.0-28.9,adult Start:12-May-2022 Instruction Type:Patient Education Patient Instructions Indication:BMI 27.0-27.9,adult Start:13-Mar-2022 Instruction Type:Provider Instructions for Treatment How to Access Health Informa tion Online using Patient Portal and [employer] Apps Indication:BMI 27.0-27.9,adult Start:13-Mar-2022 Instruction Type:Patient Education Patient Instructions Indication:BMI 26.0-26.9,adult Start:20-May-2021 Instruction Type:Provider Instructions for Treatment How to Access Health Informa tion Online using Patient Portal and [employer] Apps Indication:BMI 26.0-26.9,adult Start:20-May-2021 Instruction Type:Patient Education Patient Instructions Indication:Encounter for annual general medical examination with abnormal findings in adult Start:02-May-2021 Instruction Type:Provider Instructions for Treatment How to Access Health Informa tion Online using Patient Portal and [employer] Apps Indication:Encounter for annual general medical examination with abnormal findings in adult Start:02-May-2021 Instruction Type:Patient Education Patient Instructions Indication:Non-smoker Start:24-Apr-2021 Instruction Type:Provider Instructions for Treatment How to Access Health Informa tion Online using Patient Portal and [employer] Apps Indication:Non-smoker Start:24-Apr-2021 Instruction Type:Patient Education Patient Instructions Indication:Non-smoker Start:23-Jul-2020 Instruction Type:Provider Instructions for Treatment How to Access Health Informa tion Online using Patient Portal and [employer] Apps Indication:Non-smoker Start:23-Jul-2020 Instruction Type:Patient Education Patient Instructions Indication:BMI 25.0-25.9,adult Start:28-Jun-2020 Instruction Type:Provider Instructions for Treatment How to Access Health Informa tion Online using Patient Portal and [employer] Apps Indication:BMI 25.0-25.9,adult Start:28-Jun-2020 Instruction Type:Patient Education How to Access Health Informa tion Online using Patient Portal and [employer] Apps Indication:Non-smoker Start:12-Jun-2020 Instruction Type:Patient Education Patient Instructions Indication:Non-smoker Start:12-Jun-2020 Instruction Type:Provider Instructions for Treatment How to Access Health Informa tion Online using Patient Portal and [employer] Apps Indication:Non-smoker Start:10-May-2020 Instruction Type:Patient Education Patient Instructions Indication:Non-smoker Start:10-May-2020 Instruction Type:Provider Instructions for Treatment How to access health informa tion online Indication:Shingles of eyelid Start:12-Apr-2020 Instruction Type:Patient Education How to access health informa tion online - Detail Indication:Shingles of eyelid Start:12-Apr-2020 Instruction Type:Patient Education Patient Instructions Indication:Shingles of eyelid Start:12-Apr-2020 Instruction Type:Provider Instructions for Treatment How to access health informa tion online Indication:BMI 25.0-25.9,adult Start:15-Dec-2019 Instruction Type:Patient Education How to access health informa tion online - Detail Indication:BMI 25.0-25.9,adult Start:15-Dec-2019 Instruction Type:Patient Education Patient Instructions Indication:BMI 25.0-25.9,adult Start:15-Dec-2019 Instruction Type:Provider Instructions for Treatment cardiovascular counseling Indication:Hypertension, essential, benign Start:01-Dec-2019 Instruction Type:Provider Instructions for Treatment How to access health informa tion online Indication:Non-smoker Start:01-Dec-2019 Instruction Type:Patient Education How to access health informa tion online - Detail Indication:Non-smoker Start:01-Dec-2019 Instruction Type:Patient Education Patient Instructions Indication:Non-smoker Start:01-Dec-2019 Instruction Type:Provider Instructions for Treatment How to access health informa tion online Indication:Non-smoker Start:07-Nov-2019 Instruction Type:Patient Education How to access health informa tion online - Detail Indication:Non-smoker Start:07-Nov-2019 Instruction Type:Patient Education Patient Instructions Indication:Non-smoker Start:07-Nov-2019 Instruction Type:Provider Instructions for Treatment How to access health informa tion online Indication:Non-smoker Start:01-Nov-2019 Instruction Type:Patient Education How to access health informa tion online - Detail Indication:Non-smoker Start:01-Nov-2019 Instruction Type:Patient Education Patient Instructions Indication:Non-smoker Start:01-Nov-2019 Instruction Type:Provider Instructions for Treatment How to access health informa tion online Indication:Non-smoker Start:07-Apr-2019 Instruction Type:Patient Education How to access health informa tion online - Detail Indication:Non-smoker Start:07-Apr-2019 Instruction Type:Patient Education Patient Instructions Indication:Non-smoker Start:07-Apr-2019 Instruction Type:Provider Instructions for Treatment How to access health informa tion online Indication:Non-smoker Start:03-Feb-2019 Instruction Type:Patient Education How to access health informa tion online - Detail Indication:Non-smoker Start:03-Feb-2019 Instruction Type:Patient Education Patient Instructions Indication:Non-smoker Start:03-Feb-2019 Instruction Type:Provider Instructions for Treatment How to access health informa tion online Indication:Hypertension, essential, benign Start:30-Dec-2018 Instruction Type:Patient Education How to access health informa tion online - Detail Indication:Hypertension, essential, benign Start:30-Dec-2018 Instruction Type:Patient Education Patient Instructions Indication:Hypertension, essential, benign Start:30-Dec-2018 Instruction Type:Provider Instructions for Treatment How to access health informa tion online Indication:BMI 26.0-26.9,adult Start:15-Dec-2016 Instruction Type:Patient Education How to access health informa tion online - Detail Indication:BMI 26.0-26.9,adult Start:15-Dec-2016 Instruction Type:Patient Education Patient Instructions Indication:BMI 26.0-26.9,adult Start:15-Dec-2016 Instruction Type:Provider Instructions for Treatment Patient Instructions Indication:Depression Start:26-Feb-2016 Instruction Type:Provider Instructions for Treatment How to access health informa tion online Indication:Medicare annual wellness visit, initial Start:20-Dec-2015 Instruction Type:Patient Education How to access health informa tion online - Detail Indication:Medicare annual wellness visit, initial Start:20-Dec-2015 Instruction Type:Patient Education Patient Instructions Indication:Medicare annual wellness visit, initial Start:20-Dec-2015 Instruction Type:Provider Instructions for Treatment How to access health informa tion online Indication:Depression Start:18-Oct-2015 Instruction Type:Patient Education How to access health informa tion online - Detail Indication:Depression Start:18-Oct-2015 Instruction Type:Patient Education Patient Instructions Indication:Depression Start:18-Oct-2015 Instruction Type:Provider Instructions for Treatment How to access health informa tion online Indication:Depression Start:18-Apr-2015 Instruction Type:Patient Education How to access health informa tion online - Detail Indication:Depression Start:18-Apr-2015 Instruction Type:Patient Education Patient Instructions Indication:Depression Start:18-Apr-2015 Instruction Type:Provider Instructions for Treatment How to access health informa tion online Indication:Depression Start:11-Oct-2014 Instruction Type:Patient Education How to access health informa tion online - Detail Indication:Depression Start:11-Oct-2014 Instruction Type:Patient Education Patient Instructions Indication:Depression Start:11-Oct-2014 Instruction Type:Provider Instructions for Treatment Patient Instructions Indication:Depression Start:19-Apr-2014 Instruction Type:Provider Instructions for Treatment Patient Instructions Indication:Hypertension, essential, benign Start:04-Oct-2013 Instruction Type:Provider Instructions for Treatment Patient Instructions Indication:Hypertension, essential, benign Start:15-Jun-2013 Instruction Type:Provider Instructions for Treatment Patient Instructions Indication:Hypertension, essential, benign Start:30-May-2013 Instruction Type:Provider Instructions for Treatment Patient Instructions Indication:Hypothyroidism Start:09-Mar-2013 Instruction Type:Provider Instructions for Treatment Patient Instructions Indication:Depression Start:10-Sep-2012 Instruction Type:Provider Instructions for Treatment [facility]; [facility] Work Phone: Instructions* Name Dates Details Patient Instructions Indication:Nonsmoker Start:19-Feb-2023 Instruction Type:Provider Instructions for Treatment How to Access Health Informa tion Online using Patient Portal and [employer] Apps Indication:Nonsmoker Start:19-Feb-2023 Instruction Type:Patient Education Patient Instructions Indication:Nonsmoker Start:09-Feb-2023 Instruction Type:Provider Instructions for Treatment How to Access Health Informa tion Online using Patient Portal and [employer] Apps Indication:Nonsmoker Start:09-Feb-2023 Instruction Type:Patient Education Patient Instructions Indication:BMI 28.0-28.9,adult Start:24-Sep-2022 Instruction Type:Provider Instructions for Treatment How to Access Health Informa tion Online using Patient Portal and [employer] Apps Indication:BMI 28.0-28.9,adult Start:24-Sep-2022 Instruction Type:Patient Education Patient Instructions Indication:BMI 28.0-28.9,adult Start:08-Sep-2022 Instruction Type:Provider Instructions for Treatment How to Access Health Informa tion Online using Patient Portal and [employer] Indication:BMI 28.0-28.9,adult Start:08-Sep-2022 Instruction Type:Patient Education Patient Instructions Indication:BMI 28.0-28.9,adult Start:04-Jun-2022 Instruction Type:Provider Instructions for Treatment How to Access Health Informa tion Online using Patient Portal and [employer] Indication:BMI 28.0-28.9,adult Start:04-Jun-2022 Instruction Type:Patient Education Patient Instructions Indication:BMI 28.0-28.9,adult Start:12-May-2022 Instruction Type:Provider Instructions for Treatment How to Access Health Informa tion Online using Patient Portal and [employer] Apps Indication:BMI 28.0-28.9,adult Start:12-May-2022 Instruction Type:Patient Education Patient Instructions Indication:BMI 27.0-27.9,adult Start:13-Mar-2022 Instruction Type:Provider Instructions for Treatment How to Access Health Informa tion Online using Patient Portal and [employer] Indication:BMI 27.0-27.9,adult Start:13-Mar-2022 Instruction Type:Patient Education Patient Instructions Indication:BMI 26.0-26.9,adult Start:20-May-2021 Instruction Type:Provider Instructions for Treatment How to Access Health Informa tion Online using Patient Portal and [employer] Apps Indication:BMI 26.0-26.9,adult Start:20-May-2021 Instruction Type:Patient Education Patient Instructions Indication:Encounter for annual general medical examination with abnormal findings in adult Start:02-May-2021 Instruction Type:Provider Instructions for Treatment How to Access Health Informa tion Online using Patient Portal and [employer] Apps Indication:Encounter for annual general medical examination with abnormal findings in adult Start:02-May-2021 Instruction Type:Patient Education Patient Instructions Indication:Non-smoker Start:24-Apr-2021 Instruction Type:Provider Instructions for Treatment How to Access Health Informa tion Online using Patient Portal and [employer] Apps Indication:Non-smoker Start:24-Apr-2021 Instruction Type:Patient Education Patient Instructions Indication:Non-smoker Start:23-Jul-2020 Instruction Type:Provider Instructions for Treatment How to Access Health Informa tion Online using Patient Portal and [employer] Apps Indication:Non-smoker Start:23-Jul-2020 Instruction Type:Patient Education Patient Instructions Indication:BMI 25.0-25.9,adult Start:28-Jun-2020 Instruction Type:Provider Instructions for Treatment How to Access Health Informa tion Online using Patient Portal and [employer] Apps Indication:BMI 25.0-25.9,adult Start:28-Jun-2020 Instruction Type:Patient Education How to Access Health Informa tion Online using Patient Portal and [employer] Apps Indication:Non-smoker Start:12-Jun-2020 Instruction Type:Patient Education Patient Instructions Indication:Non-smoker Start:12-Jun-2020 Instruction Type:Provider Instructions for Treatment How to Access Health Informa tion Online using Patient Portal and [employer] Apps Indication:Non-smoker Start:10-May-2020 Instruction Type:Patient Education Patient Instructions Indication:Non-smoker Start:10-May-2020 Instruction Type:Provider Instructions for Treatment How to access health informa tion online Indication:Shingles of eyelid Start:12-Apr-2020 Instruction Type:Patient Education How to access health informa tion online - Detail Indication:Shingles of eyelid Start:12-Apr-2020 Instruction Type:Patient Education Patient Instructions Indication:Shingles of eyelid Start:12-Apr-2020 Instruction Type:Provider Instructions for Treatment How to access health informa tion online Indication:BMI 25.0-25.9,adult Start:15-Dec-2019 Instruction Type:Patient Education How to access health informa tion online - Detail Indication:BMI 25.0-25.9,adult Start:15-Dec-2019 Instruction Type:Patient Education Patient Instructions Indication:BMI 25.0-25.9,adult Start:15-Dec-2019 Instruction Type:Provider Instructions for Treatment cardiovascular counseling Indication:Hypertension, essential, benign Start:01-Dec-2019 Instruction Type:Provider Instructions for Treatment How to access health informa tion online Indication:Non-smoker Start:01-Dec-2019 Instruction Type:Patient Education How to access health informa tion online - Detail Indication:Non-smoker Start:01-Dec-2019 Instruction Type:Patient Education Patient Instructions Indication:Non-smoker Start:01-Dec-2019 Instruction Type:Provider Instructions for Treatment How to access health informa tion online Indication:Non-smoker Start:07-Nov-2019 Instruction Type:Patient Education How to access health informa tion online - Detail Indication:Non-smoker Start:07-Nov-2019 Instruction Type:Patient Education Patient Instructions Indication:Non-smoker Start:07-Nov-2019 Instruction Type:Provider Instructions for Treatment How to access health informa tion online Indication:Non-smoker Start:01-Nov-2019 Instruction Type:Patient Education How to access health informa tion online - Detail Indication:Non-smoker Start:01-Nov-2019 Instruction Type:Patient Education Patient Instructions Indication:Non-smoker Start:01-Nov-2019 Instruction Type:Provider Instructions for Treatment How to access health informa tion online Indication:Non-smoker Start:07-Apr-2019 Instruction Type:Patient Education How to access health informa tion online - Detail Indication:Non-smoker Start:07-Apr-2019 Instruction Type:Patient Education Patient Instructions Indication:Non-smoker Start:07-Apr-2019 Instruction Type:Provider Instructions for Treatment How to access health informa tion online Indication:Non-smoker Start:03-Feb-2019 Instruction Type:Patient Education How to access health informa tion online - Detail Indication:Non-smoker Start:03-Feb-2019 Instruction Type:Patient Education Patient Instructions Indication:Non-smoker Start:03-Feb-2019 Instruction Type:Provider Instructions for Treatment How to access health informa tion online Indication:Hypertension, essential, benign Start:30-Dec-2018 Instruction Type:Patient Education How to access health informa tion online - Detail Indication:Hypertension, essential, benign Start:30-Dec-2018 Instruction Type:Patient Education Patient Instructions Indication:Hypertension, essential, benign Start:30-Dec-2018 Instruction Type:Provider Instructions for Treatment How to access health informa tion online Indication:BMI 26.0-26.9,adult Start:15-Dec-2016 Instruction Type:Patient Education How to access health informa tion online - Detail Indication:BMI 26.0-26.9,adult Start:15-Dec-2016 Instruction Type:Patient Education Patient Instructions Indication:BMI 26.0-26.9,adult Start:15-Dec-2016 Instruction Type:Provider Instructions for Treatment Patient Instructions Indication:Depression Start:26-Feb-2016 Instruction Type:Provider Instructions for Treatment How to access health informa tion online Indication:Medicare annual wellness visit, initial Start:20-Dec-2015 Instruction Type:Patient Education How to access health informa tion online - Detail Indication:Medicare annual wellness visit, initial Start:20-Dec-2015 Instruction Type:Patient Education Patient Instructions Indication:Medicare annual wellness visit, initial Start:20-Dec-2015 Instruction Type:Provider Instructions for Treatment How to access health informa tion online Indication:Depression Start:18-Oct-2015 Instruction Type:Patient Education How to access health informa tion online - Detail Indication:Depression Start:18-Oct-2015 Instruction Type:Patient Education Patient Instructions Indication:Depression Start:18-Oct-2015 Instruction Type:Provider Instructions for Treatment How to access health informa tion online Indication:Depression Start:18-Apr-2015 Instruction Type:Patient Education How to access health informa tion online - Detail Indication:Depression Start:18-Apr-2015 Instruction Type:Patient Education Patient Instructions Indication:Depression Start:18-Apr-2015 Instruction Type:Provider Instructions for Treatment How to access health informa tion online Indication:Depression Start:11-Oct-2014 Instruction Type:Patient Education How to access health informa tion online - Detail Indication:Depression Start:11-Oct-2014 Instruction Type:Patient Education Patient Instructions Indication:Depression Start:11-Oct-2014 Instruction Type:Provider Instructions for Treatment Patient Instructions Indication:Depression Start:19-Apr-2014 Instruction Type:Provider Instructions for Treatment Patient Instructions Indication:Hypertension, essential, benign Start:04-Oct-2013 Instruction Type:Provider Instructions for Treatment Patient Instructions Indication:Hypertension, essential, benign Start:15-Jun-2013 Instruction Type:Provider Instructions for Treatment Patient Instructions Indication:Hypertension, essential, benign Start:30-May-2013 Instruction Type:Provider Instructions for Treatment Patient Instructions Indication:Hypothyroidism Start:09-Mar-2013 Instruction Type:Provider Instructions for Treatment Patient Instructions Indication:Depression Start:10-Sep-2012 Instruction Type:Provider Instructions for Treatment [facility]; [facility] Work Phone: Family History No Family History Records FoundUnknown Family Member Name Dates Details Family Members In General Comments:diabetes-heart lung disease-htn -emotional problems Status:Active Unknown Family Member Name Dates Details Family Members In General Comments:diabetes-heart lung disease-htn -emotional problems Status:Active Unknown Family Member Name Dates Details Family Members In General Comments:diabetes-heart lung disease-htn -emotional problems Status:Active Unknown Family Member Name Dates Details Family Members In General Comments:diabetes-heart lung disease-htn -emotional problems Status:Active Unknown Family Member Name Dates Details Family Members In General Comments:diabetes-heart lung disease-htn -emotional problems Status:Active Unknown Family Member Name Dates Details Family Members In General Comments:diabetes-heart lung disease-htn -emotional problems Status:Active Unknown Family Member Name Dates Details Family Members In General Comments:diabetes-heart lung disease-htn -emotional problems Status:Active Unknown Family Member Name Dates Details Family Members In General Comments:diabetes-heart lung disease-htn -emotional problems Status:Active Unknown Family Member Name Dates Details Family Members In General Comments:diabetes-heart lung disease-htn -emotional problems Status:Active Unknown Family Member Name Dates Details Family Members In General Comments:diabetes-heart lung disease-htn -emotional problems Status:Active Unknown Family Member Name Dates Details Family Members In General Comments:diabetes-heart lung disease-htn -emotional problems Status:Active Unknown Family Member Name Dates Details Family Members In General Comments:diabetes-heart lung disease-htn -emotional problems Status:Active Unknown Family Member Name Dates Details Family Members In General Comments:diabetes-heart lung disease-htn -emotional problems Status:Active Unknown Family Member Name Dates Details Family Members In General Comments:diabetes-heart lung disease-htn -emotional problems Status:Active Unknown Family Member Name Dates Details Family Members In General Comments:diabetes-heart lung disease-htn -emotional problems Status:Active Unknown Family Member Name Dates Details Family Members In General Comments:diabetes-heart lung disease-htn -emotional problems Status:Active Unknown Family Member Name Dates Details Family Members In General Comments:diabetes-heart lung disease-htn -emotional problems Status:Active Unknown Family Member Name Dates Details Family Members In General Comments:diabetes-heart lung disease-htn -emotional problems Status:Active Unknown Family Member Name Dates Details Family Members In General Comments:diabetes-heart lung disease-htn -emotional problems Status:Active Unknown Family Member Name Dates Details Family Members In General Comments:diabetes-heart lung disease-htn -emotional problems Status:Active Unknown Family Member Name Dates Details Family Members In General Comments:diabetes-heart lung disease-htn -emotional problems Status:Active Unknown Family Member Name Dates Details Family Members In General Comments:diabetes-heart lung disease-htn -emotional problems Status:Active Unknown Family Member Name Dates Details Family Members In General Comments:diabetes-heart lung disease-htn -emotional problems Status:Active Unknown Family Member Name Dates Details Family Members In General Comments:diabetes-heart lung disease-htn -emotional problems Status:Active Relationship Condition Age at Onset Recorded Date/T suzan Not Specified Diabetes mellitus Unknown Cardiac disease Unknown Myocardial infarction Unknown Hypertension Unknown Unknown Family Member Name Dates Details Family Members In General Comments:diabetes-heart lung disease-htn -emotional problems Status:Active Unknown Family Member Name Dates Details Family Members In General Comments:diabetes-heart lung disease-htn -emotional problems Status:Active Unknown Family Member Name Dates Details Family Members In General Comments:diabetes-heart lung disease-htn -emotional problems Status:Active Unknown Family Member Name Dates Details Family Members In General Comments:diabetes-heart lung disease-htn -emotional problems Status:Active Unknown Family Member Name Dates Details Family Members In General Comments:diabetes-heart lung disease-htn -emotional problems Status:Active Unknown Family Member Name Dates Details Family Members In General Comments:diabetes-heart lung disease-htn -emotional problems Status:Active Unknown Family Member Name Dates Details Family Members In General Comments:diabetes-heart lung disease-htn -emotional problems Status:Active Unknown Family Member Name Dates Details Family Members In General Comments:diabetes-heart lung disease-htn -emotional problems Status:Active Unknown Family Member Name Dates Details Family Members In General Comments:diabetes-heart lung disease-htn -emotional problems Status:Active Unknown Family Member Name Dates Details Family Members In General Comments:diabetes-heart lung disease-htn -emotional problems Status:Active Unknown Family Member Name Dates Details Family Members In General Comments:diabetes-heart lung disease-htn -emotional problems Status:Active Unknown Family Member Name Dates Details Family Members In General Comments:diabetes-heart lung disease-htn -emotional problems Status:Active Unknown Family Member Name Dates Details Family Members In General Comments:diabetes-heart lung disease-htn -emotional problems Status:Active Unknown Family Member Name Dates Details Family Members In General Comments:diabetes-heart lung disease-htn -emotional problems Status:Active Unknown Family Member Name Dates Details Family Members In General Comments:diabetes-heart lung disease-htn -emotional problems Status:Active Unknown Family Member Name Dates Details Family Members In General Comments:diabetes-heart lung disease-htn -emotional problems Status:Active Unknown Family Member Name Dates Details Family Members In General Comments:diabetes-heart lung disease-htn -emotional problems Status:Active Unknown Family Member Name Dates Details Family Members In General Comments:diabetes-heart lung disease-htn -emotional problems Status:Active Unknown Family Member Name Dates Details Family Members In General Comments:diabetes-heart lung disease-htn -emotional problems Status:Active Unknown Family Member Name Dates Details Family Members In General Comments:diabetes-heart lung disease-htn -emotional problems Status:Active Instructions Name Dates Details How to access health informa tion online Indication:BMI 26.0-26.9,adult Start:15-Dec-2016 Instruction Type:Patient Education How to access health informa tion online - Detail Indication:BMI 26.0-26.9,adult Start:15-Dec-2016 Instruction Type:Patient Education Patient Instructions Indication:BMI 26.0-26.9,adult Start:15-Dec-2016 Instruction Type:Provider Instructions for Treatment Patient Instructions Indication:Depression Start:26-Feb-2016 Instruction Type:Provider Instructions for Treatment How to access health informa tion online Indication:Medicare annual wellness visit, initial Start:20-Dec-2015 Instruction Type:Patient Education How to access health informa tion online - Detail Indication:Medicare annual wellness visit, initial Start:20-Dec-2015 Instruction Type:Patient Education Patient Instructions Indication:Medicare annual wellness visit, initial Start:20-Dec-2015 Instruction Type:Provider Instructions for Treatment How to access health informa tion online Indication:Depression Start:18-Oct-2015 Instruction Type:Patient Education How to access health informa tion online - Detail Indication:Depression Start:18-Oct-2015 Instruction Type:Patient Education Patient Instructions Indication:Depression Start:18-Oct-2015 Instruction Type:Provider Instructions for Treatment How to access health informa tion online Indication:Depression Start:18-Apr-2015 Instruction Type:Patient Education How to access health informa tion online - Detail Indication:Depression Start:18-Apr-2015 Instruction Type:Patient Education Patient Instructions Indication:Depression Start:18-Apr-2015 Instruction Type:Provider Instructions for Treatment How to access health informa tion online Indication:Depression Start:11-Oct-2014 Instruction Type:Patient Education How to access health informa tion online - Detail Indication:Depression Start:11-Oct-2014 Instruction Type:Patient Education Patient Instructions Indication:Depression Start:11-Oct-2014 Instruction Type:Provider Instructions for Treatment Patient Instructions Indication:Depression Start:19-Apr-2014 Instruction Type:Provider Instructions for Treatment Patient Instructions Indication:Hypertension, essential, benign Start:04-Oct-2013 Instruction Type:Provider Instructions for Treatment Patient Instructions Indication:Hypertension, essential, benign Start:15-Jun-2013 Instruction Type:Provider Instructions for Treatment Patient Instructions Indication:Hypertension, essential, benign Start:30-May-2013 Instruction Type:Provider Instructions for Treatment Patient Instructions Indication:Hypothyroidism Start:09-Mar-2013 Instruction Type:Provider Instructions for Treatment Patient Instructions Indication:Depression Start:10-Sep-2012 Instruction Type:Provider Instructions for Treatment Name Dates Details How to access health informa tion online Indication:Hypertension, essential, benign Start:30-Dec-2018 Instruction Type:Patient Education How to access health informa tion online - Detail Indication:Hypertension, essential, benign Start:30-Dec-2018 Instruction Type:Patient Education Patient Instructions Indication:Hypertension, essential, benign Start:30-Dec-2018 Instruction Type:Provider Instructions for Treatment How to access health informa tion online Indication:BMI 26.0-26.9,adult Start:15-Dec-2016 Instruction Type:Patient Education How to access health informa tion online - Detail Indication:BMI 26.0-26.9,adult Start:15-Dec-2016 Instruction Type:Patient Education Patient Instructions Indication:BMI 26.0-26.9,adult Start:15-Dec-2016 Instruction Type:Provider Instructions for Treatment Patient Instructions Indication:Depression Start:26-Feb-2016 Instruction Type:Provider Instructions for Treatment How to access health informa tion online Indication:Medicare annual wellness visit, initial Start:20-Dec-2015 Instruction Type:Patient Education How to access health informa tion online - Detail Indication:Medicare annual wellness visit, initial Start:20-Dec-2015 Instruction Type:Patient Education Patient Instructions Indication:Medicare annual wellness visit, initial Start:20-Dec-2015 Instruction Type:Provider Instructions for Treatment How to access health informa tion online Indication:Depression Start:18-Oct-2015 Instruction Type:Patient Education How to access health informa tion online - Detail Indication:Depression Start:18-Oct-2015 Instruction Type:Patient Education Patient Instructions Indication:Depression Start:18-Oct-2015 Instruction Type:Provider Instructions for Treatment How to access health informa tion online Indication:Depression Start:18-Apr-2015 Instruction Type:Patient Education How to access health informa tion online - Detail Indication:Depression Start:18-Apr-2015 Instruction Type:Patient Education Patient Instructions Indication:Depression Start:18-Apr-2015 Instruction Type:Provider Instructions for Treatment How to access health informa tion online Indication:Depression Start:11-Oct-2014 Instruction Type:Patient Education How to access health informa tion online - Detail Indication:Depression Start:11-Oct-2014 Instruction Type:Patient Education Patient Instructions Indication:Depression Start:11-Oct-2014 Instruction Type:Provider Instructions for Treatment Patient Instructions Indication:Depression Start:19-Apr-2014 Instruction Type:Provider Instructions for Treatment Patient Instructions Indication:Hypertension, essential, benign Start:04-Oct-2013 Instruction Type:Provider Instructions for Treatment Patient Instructions Indication:Hypertension, essential, benign Start:15-Jun-2013 Instruction Type:Provider Instructions for Treatment Patient Instructions Indication:Hypertension, essential, benign Start:30-May-2013 Instruction Type:Provider Instructions for Treatment Patient Instructions Indication:Hypothyroidism Start:09-Mar-2013 Instruction Type:Provider Instructions for Treatment Patient Instructions Indication:Depression Start:10-Sep-2012 Instruction Type:Provider Instructions for Treatment Name Dates Details How to access health informa tion online Indication:Hypertension, essential, benign Start:30-Dec-2018 Instruction Type:Patient Education How to access health informa tion online - Detail Indication:Hypertension, essential, benign Start:30-Dec-2018 Instruction Type:Patient Education Patient Instructions Indication:Hypertension, essential, benign Start:30-Dec-2018 Instruction Type:Provider Instructions for Treatment How to access health informa tion online Indication:BMI 26.0-26.9,adult Start:15-Dec-2016 Instruction Type:Patient Education How to access health informa tion online - Detail Indication:BMI 26.0-26.9,adult Start:15-Dec-2016 Instruction Type:Patient Education Patient Instructions Indication:BMI 26.0-26.9,adult Start:15-Dec-2016 Instruction Type:Provider Instructions for Treatment Patient Instructions Indication:Depression Start:26-Feb-2016 Instruction Type:Provider Instructions for Treatment How to access health informa tion online Indication:Medicare annual wellness visit, initial Start:20-Dec-2015 Instruction Type:Patient Education How to access health informa tion online - Detail Indication:Medicare annual wellness visit, initial Start:20-Dec-2015 Instruction Type:Patient Education Patient Instructions Indication:Medicare annual wellness visit, initial Start:20-Dec-2015 Instruction Type:Provider Instructions for Treatment How to access health informa tion online Indication:Depression Start:18-Oct-2015 Instruction Type:Patient Education How to access health informa tion online - Detail Indication:Depression Start:18-Oct-2015 Instruction Type:Patient Education Patient Instructions Indication:Depression Start:18-Oct-2015 Instruction Type:Provider Instructions for Treatment How to access health informa tion online Indication:Depression Start:18-Apr-2015 Instruction Type:Patient Education How to access health informa tion online - Detail Indication:Depression Start:18-Apr-2015 Instruction Type:Patient Education Patient Instructions Indication:Depression Start:18-Apr-2015 Instruction Type:Provider Instructions for Treatment How to access health informa tion online Indication:Depression Start:11-Oct-2014 Instruction Type:Patient Education How to access health informa tion online - Detail Indication:Depression Start:11-Oct-2014 Instruction Type:Patient Education Patient Instructions Indication:Depression Start:11-Oct-2014 Instruction Type:Provider Instructions for Treatment Patient Instructions Indication:Depression Start:19-Apr-2014 Instruction Type:Provider Instructions for Treatment Patient Instructions Indication:Hypertension, essential, benign Start:04-Oct-2013 Instruction Type:Provider Instructions for Treatment Patient Instructions Indication:Hypertension, essential, benign Start:15-Jun-2013 Instruction Type:Provider Instructions for Treatment Patient Instructions Indication:Hypertension, essential, benign Start:30-May-2013 Instruction Type:Provider Instructions for Treatment Patient Instructions Indication:Hypothyroidism Start:09-Mar-2013 Instruction Type:Provider Instructions for Treatment Patient Instructions Indication:Depression Start:10-Sep-2012 Instruction Type:Provider Instructions for Treatment Name Dates Details How to access health informa tion online Indication:Hypertension, essential, benign Start:30-Dec-2018 Instruction Type:Patient Education How to access health informa tion online - Detail Indication:Hypertension, essential, benign Start:30-Dec-2018 Instruction Type:Patient Education Patient Instructions Indication:Hypertension, essential, benign Start:30-Dec-2018 Instruction Type:Provider Instructions for Treatment How to access health informa tion online Indication:BMI 26.0-26.9,adult Start:15-Dec-2016 Instruction Type:Patient Education How to access health informa tion online - Detail Indication:BMI 26.0-26.9,adult Start:15-Dec-2016 Instruction Type:Patient Education Patient Instructions Indication:BMI 26.0-26.9,adult Start:15-Dec-2016 Instruction Type:Provider Instructions for Treatment Patient Instructions Indication:Depression Start:26-Feb-2016 Instruction Type:Provider Instructions for Treatment How to access health informa tion online Indication:Medicare annual wellness visit, initial Start:20-Dec-2015 Instruction Type:Patient Education How to access health informa tion online - Detail Indication:Medicare annual wellness visit, initial Start:20-Dec-2015 Instruction Type:Patient Education Patient Instructions Indication:Medicare annual wellness visit, initial Start:20-Dec-2015 Instruction Type:Provider Instructions for Treatment How to access health informa tion online Indication:Depression Start:18-Oct-2015 Instruction Type:Patient Education How to access health informa tion online - Detail Indication:Depression Start:18-Oct-2015 Instruction Type:Patient Education Patient Instructions Indication:Depression Start:18-Oct-2015 Instruction Type:Provider Instructions for Treatment How to access health informa tion online Indication:Depression Start:18-Apr-2015 Instruction Type:Patient Education How to access health informa tion online - Detail Indication:Depression Start:18-Apr-2015 Instruction Type:Patient Education Patient Instructions Indication:Depression Start:18-Apr-2015 Instruction Type:Provider Instructions for Treatment How to access health informa tion online Indication:Depression Start:11-Oct-2014 Instruction Type:Patient Education How to access health informa tion online - Detail Indication:Depression Start:11-Oct-2014 Instruction Type:Patient Education Patient Instructions Indication:Depression Start:11-Oct-2014 Instruction Type:Provider Instructions for Treatment Patient Instructions Indication:Depression Start:19-Apr-2014 Instruction Type:Provider Instructions for Treatment Patient Instructions Indication:Hypertension, essential, benign Start:04-Oct-2013 Instruction Type:Provider Instructions for Treatment Patient Instructions Indication:Hypertension, essential, benign Start:15-Jun-2013 Instruction Type:Provider Instructions for Treatment Patient Instructions Indication:Hypertension, essential, benign Start:30-May-2013 Instruction Type:Provider Instructions for Treatment Patient Instructions Indication:Hypothyroidism Start:09-Mar-2013 Instruction Type:Provider Instructions for Treatment Patient Instructions Indication:Depression Start:10-Sep-2012 Instruction Type:Provider Instructions for Treatment Name Dates Details How to access health informa tion online Indication:Non-smoker Start:03-Feb-2019 Instruction Type:Patient Education How to access health informa tion online - Detail Indication:Non-smoker Start:03-Feb-2019 Instruction Type:Patient Education Patient Instructions Indication:Non-smoker Start:03-Feb-2019 Instruction Type:Provider Instructions for Treatment How to access health informa tion online Indication:Hypertension, essential, benign Start:30-Dec-2018 Instruction Type:Patient Education How to access health informa tion online - Detail Indication:Hypertension, essential, benign Start:30-Dec-2018 Instruction Type:Patient Education Patient Instructions Indication:Hypertension, essential, benign Start:30-Dec-2018 Instruction Type:Provider Instructions for Treatment How to access health informa tion online Indication:BMI 26.0-26.9,adult Start:15-Dec-2016 Instruction Type:Patient Education How to access health informa tion online - Detail Indication:BMI 26.0-26.9,adult Start:15-Dec-2016 Instruction Type:Patient Education Patient Instructions Indication:BMI 26.0-26.9,adult Start:15-Dec-2016 Instruction Type:Provider Instructions for Treatment Patient Instructions Indication:Depression Start:26-Feb-2016 Instruction Type:Provider Instructions for Treatment How to access health informa tion online Indication:Medicare annual wellness visit, initial Start:20-Dec-2015 Instruction Type:Patient Education How to access health informa tion online - Detail Indication:Medicare annual wellness visit, initial Start:20-Dec-2015 Instruction Type:Patient Education Patient Instructions Indication:Medicare annual wellness visit, initial Start:20-Dec-2015 Instruction Type:Provider Instructions for Treatment How to access health informa tion online Indication:Depression Start:18-Oct-2015 Instruction Type:Patient Education How to access health informa tion online - Detail Indication:Depression Start:18-Oct-2015 Instruction Type:Patient Education Patient Instructions Indication:Depression Start:18-Oct-2015 Instruction Type:Provider Instructions for Treatment How to access health informa tion online Indication:Depression Start:18-Apr-2015 Instruction Type:Patient Education How to access health informa tion online - Detail Indication:Depression Start:18-Apr-2015 Instruction Type:Patient Education Patient Instructions Indication:Depression Start:18-Apr-2015 Instruction Type:Provider Instructions for Treatment How to access health informa tion online Indication:Depression Start:11-Oct-2014 Instruction Type:Patient Education How to access health informa tion online - Detail Indication:Depression Start:11-Oct-2014 Instruction Type:Patient Education Patient Instructions Indication:Depression Start:11-Oct-2014 Instruction Type:Provider Instructions for Treatment Patient Instructions Indication:Depression Start:19-Apr-2014 Instruction Type:Provider Instructions for Treatment Patient Instructions Indication:Hypertension, essential, benign Start:04-Oct-2013 Instruction Type:Provider Instructions for Treatment Patient Instructions Indication:Hypertension, essential, benign Start:15-Jun-2013 Instruction Type:Provider Instructions for Treatment Patient Instructions Indication:Hypertension, essential, benign Start:30-May-2013 Instruction Type:Provider Instructions for Treatment Patient Instructions Indication:Hypothyroidism Start:09-Mar-2013 Instruction Type:Provider Instructions for Treatment Patient Instructions Indication:Depression Start:10-Sep-2012 Instruction Type:Provider Instructions for Treatment Name Dates Details How to access health informa tion online Indication:Non-smoker Start:03-Feb-2019 Instruction Type:Patient Education How to access health informa tion online - Detail Indication:Non-smoker Start:03-Feb-2019 Instruction Type:Patient Education Patient Instructions Indication:Non-smoker Start:03-Feb-2019 Instruction Type:Provider Instructions for Treatment How to access health informa tion online Indication:Hypertension, essential, benign Start:30-Dec-2018 Instruction Type:Patient Education How to access health informa tion online - Detail Indication:Hypertension, essential, benign Start:30-Dec-2018 Instruction Type:Patient Education Patient Instructions Indication:Hypertension, essential, benign Start:30-Dec-2018 Instruction Type:Provider Instructions for Treatment How to access health informa tion online Indication:BMI 26.0-26.9,adult Start:15-Dec-2016 Instruction Type:Patient Education How to access health informa tion online - Detail Indication:BMI 26.0-26.9,adult Start:15-Dec-2016 Instruction Type:Patient Education Patient Instructions Indication:BMI 26.0-26.9,adult Start:15-Dec-2016 Instruction Type:Provider Instructions for Treatment Patient Instructions Indication:Depression Start:26-Feb-2016 Instruction Type:Provider Instructions for Treatment How to access health informa tion online Indication:Medicare annual wellness visit, initial Start:20-Dec-2015 Instruction Type:Patient Education How to access health informa tion online - Detail Indication:Medicare annual wellness visit, initial Start:20-Dec-2015 Instruction Type:Patient Education Patient Instructions Indication:Medicare annual wellness visit, initial Start:20-Dec-2015 Instruction Type:Provider Instructions for Treatment How to access health informa tion online Indication:Depression Start:18-Oct-2015 Instruction Type:Patient Education How to access health informa tion online - Detail Indication:Depression Start:18-Oct-2015 Instruction Type:Patient Education Patient Instructions Indication:Depression Start:18-Oct-2015 Instruction Type:Provider Instructions for Treatment How to access health informa tion online Indication:Depression Start:18-Apr-2015 Instruction Type:Patient Education How to access health informa tion online - Detail Indication:Depression Start:18-Apr-2015 Instruction Type:Patient Education Patient Instructions Indication:Depression Start:18-Apr-2015 Instruction Type:Provider Instructions for Treatment How to access health informa tion online Indication:Depression Start:11-Oct-2014 Instruction Type:Patient Education How to access health informa tion online - Detail Indication:Depression Start:11-Oct-2014 Instruction Type:Patient Education Patient Instructions Indication:Depression Start:11-Oct-2014 Instruction Type:Provider Instructions for Treatment Patient Instructions Indication:Depression Start:19-Apr-2014 Instruction Type:Provider Instructions for Treatment Patient Instructions Indication:Hypertension, essential, benign Start:04-Oct-2013 Instruction Type:Provider Instructions for Treatment Patient Instructions Indication:Hypertension, essential, benign Start:15-Jun-2013 Instruction Type:Provider Instructions for Treatment Patient Instructions Indication:Hypertension, essential, benign Start:30-May-2013 Instruction Type:Provider Instructions for Treatment Patient Instructions Indication:Hypothyroidism Start:09-Mar-2013 Instruction Type:Provider Instructions for Treatment Patient Instructions Indication:Depression Start:10-Sep-2012 Instruction Type:Provider Instructions for Treatment Name Dates Details How to access health informa tion online Indication:Non-smoker Start:07-Apr-2019 Instruction Type:Patient Education How to access health informa tion online - Detail Indication:Non-smoker Start:07-Apr-2019 Instruction Type:Patient Education Patient Instructions Indication:Non-smoker Start:07-Apr-2019 Instruction Type:Provider Instructions for Treatment How to access health informa tion online Indication:Non-smoker Start:03-Feb-2019 Instruction Type:Patient Education How to access health informa tion online - Detail Indication:Non-smoker Start:03-Feb-2019 Instruction Type:Patient Education Patient Instructions Indication:Non-smoker Start:03-Feb-2019 Instruction Type:Provider Instructions for Treatment How to access health informa tion online Indication:Hypertension, essential, benign Start:30-Dec-2018 Instruction Type:Patient Education How to access health informa tion online - Detail Indication:Hypertension, essential, benign Start:30-Dec-2018 Instruction Type:Patient Education Patient Instructions Indication:Hypertension, essential, benign Start:30-Dec-2018 Instruction Type:Provider Instructions for Treatment How to access health informa tion online Indication:BMI 26.0-26.9,adult Start:15-Dec-2016 Instruction Type:Patient Education How to access health informa tion online - Detail Indication:BMI 26.0-26.9,adult Start:15-Dec-2016 Instruction Type:Patient Education Patient Instructions Indication:BMI 26.0-26.9,adult Start:15-Dec-2016 Instruction Type:Provider Instructions for Treatment Patient Instructions Indication:Depression Start:26-Feb-2016 Instruction Type:Provider Instructions for Treatment How to access health informa tion online Indication:Medicare annual wellness visit, initial Start:20-Dec-2015 Instruction Type:Patient Education How to access health informa tion online - Detail Indication:Medicare annual wellness visit, initial Start:20-Dec-2015 Instruction Type:Patient Education Patient Instructions Indication:Medicare annual wellness visit, initial Start:20-Dec-2015 Instruction Type:Provider Instructions for Treatment How to access health informa tion online Indication:Depression Start:18-Oct-2015 Instruction Type:Patient Education How to access health informa tion online - Detail Indication:Depression Start:18-Oct-2015 Instruction Type:Patient Education Patient Instructions Indication:Depression Start:18-Oct-2015 Instruction Type:Provider Instructions for Treatment How to access health informa tion online Indication:Depression Start:18-Apr-2015 Instruction Type:Patient Education How to access health informa tion online - Detail Indication:Depression Start:18-Apr-2015 Instruction Type:Patient Education Patient Instructions Indication:Depression Start:18-Apr-2015 Instruction Type:Provider Instructions for Treatment How to access health informa tion online Indication:Depression Start:11-Oct-2014 Instruction Type:Patient Education How to access health informa tion online - Detail Indication:Depression Start:11-Oct-2014 Instruction Type:Patient Education Patient Instructions Indication:Depression Start:11-Oct-2014 Instruction Type:Provider Instructions for Treatment Patient Instructions Indication:Depression Start:19-Apr-2014 Instruction Type:Provider Instructions for Treatment Patient Instructions Indication:Hypertension, essential, benign Start:04-Oct-2013 Instruction Type:Provider Instructions for Treatment Patient Instructions Indication:Hypertension, essential, benign Start:15-Jun-2013 Instruction Type:Provider Instructions for Treatment Patient Instructions Indication:Hypertension, essential, benign Start:30-May-2013 Instruction Type:Provider Instructions for Treatment Patient Instructions Indication:Hypothyroidism Start:09-Mar-2013 Instruction Type:Provider Instructions for Treatment Patient Instructions Indication:Depression Start:10-Sep-2012 Instruction Type:Provider Instructions for Treatment Name Dates Details cardiovascular counseling Indication:Hypertension, essential, benign Start:01-Dec-2019 Instruction Type:Provider Instructions for Treatment How to access health informa tion online Indication:Non-smoker Start:01-Dec-2019 Instruction Type:Patient Education How to access health informa tion online - Detail Indication:Non-smoker Start:01-Dec-2019 Instruction Type:Patient Education Patient Instructions Indication:Non-smoker Start:01-Dec-2019 Instruction Type:Provider Instructions for Treatment How to access health informa tion online Indication:Non-smoker Start:07-Nov-2019 Instruction Type:Patient Education How to access health informa tion online - Detail Indication:Non-smoker Start:07-Nov-2019 Instruction Type:Patient Education Patient Instructions Indication:Non-smoker Start:07-Nov-2019 Instruction Type:Provider Instructions for Treatment How to access health informa tion online Indication:Non-smoker Start:01-Nov-2019 Instruction Type:Patient Education How to access health informa tion online - Detail Indication:Non-smoker Start:01-Nov-2019 Instruction Type:Patient Education Patient Instructions Indication:Non-smoker Start:01-Nov-2019 Instruction Type:Provider Instructions for Treatment How to access health informa tion online Indication:Non-smoker Start:07-Apr-2019 Instruction Type:Patient Education How to access health informa tion online - Detail Indication:Non-smoker Start:07-Apr-2019 Instruction Type:Patient Education Patient Instructions Indication:Non-smoker Start:07-Apr-2019 Instruction Type:Provider Instructions for Treatment How to access health informa tion online Indication:Non-smoker Start:03-Feb-2019 Instruction Type:Patient Education How to access health informa tion online - Detail Indication:Non-smoker Start:03-Feb-2019 Instruction Type:Patient Education Patient Instructions Indication:Non-smoker Start:03-Feb-2019 Instruction Type:Provider Instructions for Treatment How to access health informa tion online Indication:Hypertension, essential, benign Start:30-Dec-2018 Instruction Type:Patient Education How to access health informa tion online - Detail Indication:Hypertension, essential, benign Start:30-Dec-2018 Instruction Type:Patient Education Patient Instructions Indication:Hypertension, essential, benign Start:30-Dec-2018 Instruction Type:Provider Instructions for Treatment How to access health informa tion online Indication:BMI 26.0-26.9,adult Start:15-Dec-2016 Instruction Type:Patient Education How to access health informa tion online - Detail Indication:BMI 26.0-26.9,adult Start:15-Dec-2016 Instruction Type:Patient Education Patient Instructions Indication:BMI 26.0-26.9,adult Start:15-Dec-2016 Instruction Type:Provider Instructions for Treatment Patient Instructions Indication:Depression Start:26-Feb-2016 Instruction Type:Provider Instructions for Treatment How to access health informa tion online Indication:Medicare annual wellness visit, initial Start:20-Dec-2015 Instruction Type:Patient Education How to access health informa tion online - Detail Indication:Medicare annual wellness visit, initial Start:20-Dec-2015 Instruction Type:Patient Education Patient Instructions Indication:Medicare annual wellness visit, initial Start:20-Dec-2015 Instruction Type:Provider Instructions for Treatment How to access health informa tion online Indication:Depression Start:18-Oct-2015 Instruction Type:Patient Education How to access health informa tion online - Detail Indication:Depression Start:18-Oct-2015 Instruction Type:Patient Education Patient Instructions Indication:Depression Start:18-Oct-2015 Instruction Type:Provider Instructions for Treatment How to access health informa tion online Indication:Depression Start:18-Apr-2015 Instruction Type:Patient Education How to access health informa tion online - Detail Indication:Depression Start:18-Apr-2015 Instruction Type:Patient Education Patient Instructions Indication:Depression Start:18-Apr-2015 Instruction Type:Provider Instructions for Treatment How to access health informa tion online Indication:Depression Start:11-Oct-2014 Instruction Type:Patient Education How to access health informa tion online - Detail Indication:Depression Start:11-Oct-2014 Instruction Type:Patient Education Patient Instructions Indication:Depression Start:11-Oct-2014 Instruction Type:Provider Instructions for Treatment Patient Instructions Indication:Depression Start:19-Apr-2014 Instruction Type:Provider Instructions for Treatment Patient Instructions Indication:Hypertension, essential, benign Start:04-Oct-2013 Instruction Type:Provider Instructions for Treatment Patient Instructions Indication:Hypertension, essential, benign Start:15-Jun-2013 Instruction Type:Provider Instructions for Treatment Patient Instructions Indication:Hypertension, essential, benign Start:30-May-2013 Instruction Type:Provider Instructions for Treatment Patient Instructions Indication:Hypothyroidism Start:09-Mar-2013 Instruction Type:Provider Instructions for Treatment Patient Instructions Indication:Depression Start:10-Sep-2012 Instruction Type:Provider Instructions for Treatment Name Dates Details cardiovascular counseling Indication:Hypertension, essential, benign Start:01-Dec-2019 Instruction Type:Provider Instructions for Treatment How to access health informa tion online Indication:Non-smoker Start:01-Dec-2019 Instruction Type:Patient Education How to access health informa tion online - Detail Indication:Non-smoker Start:01-Dec-2019 Instruction Type:Patient Education Patient Instructions Indication:Non-smoker Start:01-Dec-2019 Instruction Type:Provider Instructions for Treatment How to access health informa tion online Indication:Non-smoker Start:07-Nov-2019 Instruction Type:Patient Education How to access health informa tion online - Detail Indication:Non-smoker Start:07-Nov-2019 Instruction Type:Patient Education Patient Instructions Indication:Non-smoker Start:07-Nov-2019 Instruction Type:Provider Instructions for Treatment How to access health informa tion online Indication:Non-smoker Start:01-Nov-2019 Instruction Type:Patient Education How to access health informa tion online - Detail Indication:Non-smoker Start:01-Nov-2019 Instruction Type:Patient Education Patient Instructions Indication:Non-smoker Start:01-Nov-2019 Instruction Type:Provider Instructions for Treatment How to access health informa tion online Indication:Non-smoker Start:07-Apr-2019 Instruction Type:Patient Education How to access health informa tion online - Detail Indication:Non-smoker Start:07-Apr-2019 Instruction Type:Patient Education Patient Instructions Indication:Non-smoker Start:07-Apr-2019 Instruction Type:Provider Instructions for Treatment How to access health informa tion online Indication:Non-smoker Start:03-Feb-2019 Instruction Type:Patient Education How to access health informa tion online - Detail Indication:Non-smoker Start:03-Feb-2019 Instruction Type:Patient Education Patient Instructions Indication:Non-smoker Start:03-Feb-2019 Instruction Type:Provider Instructions for Treatment How to access health informa tion online Indication:Hypertension, essential, benign Start:30-Dec-2018 Instruction Type:Patient Education How to access health informa tion online - Detail Indication:Hypertension, essential, benign Start:30-Dec-2018 Instruction Type:Patient Education Patient Instructions Indication:Hypertension, essential, benign Start:30-Dec-2018 Instruction Type:Provider Instructions for Treatment How to access health informa tion online Indication:BMI 26.0-26.9,adult Start:15-Dec-2016 Instruction Type:Patient Education How to access health informa tion online - Detail Indication:BMI 26.0-26.9,adult Start:15-Dec-2016 Instruction Type:Patient Education Patient Instructions Indication:BMI 26.0-26.9,adult Start:15-Dec-2016 Instruction Type:Provider Instructions for Treatment Patient Instructions Indication:Depression Start:26-Feb-2016 Instruction Type:Provider Instructions for Treatment How to access health informa tion online Indication:Medicare annual wellness visit, initial Start:20-Dec-2015 Instruction Type:Patient Education How to access health informa tion online - Detail Indication:Medicare annual wellness visit, initial Start:20-Dec-2015 Instruction Type:Patient Education Patient Instructions Indication:Medicare annual wellness visit, initial Start:20-Dec-2015 Instruction Type:Provider Instructions for Treatment How to access health informa tion online Indication:Depression Start:18-Oct-2015 Instruction Type:Patient Education How to access health informa tion online - Detail Indication:Depression Start:18-Oct-2015 Instruction Type:Patient Education Patient Instructions Indication:Depression Start:18-Oct-2015 Instruction Type:Provider Instructions for Treatment How to access health informa tion online Indication:Depression Start:18-Apr-2015 Instruction Type:Patient Education How to access health informa tion online - Detail Indication:Depression Start:18-Apr-2015 Instruction Type:Patient Education Patient Instructions Indication:Depression Start:18-Apr-2015 Instruction Type:Provider Instructions for Treatment How to access health informa tion online Indication:Depression Start:11-Oct-2014 Instruction Type:Patient Education How to access health informa tion online - Detail Indication:Depression Start:11-Oct-2014 Instruction Type:Patient Education Patient Instructions Indication:Depression Start:11-Oct-2014 Instruction Type:Provider Instructions for Treatment Patient Instructions Indication:Depression Start:19-Apr-2014 Instruction Type:Provider Instructions for Treatment Patient Instructions Indication:Hypertension, essential, benign Start:04-Oct-2013 Instruction Type:Provider Instructions for Treatment Patient Instructions Indication:Hypertension, essential, benign Start:15-Jun-2013 Instruction Type:Provider Instructions for Treatment Patient Instructions Indication:Hypertension, essential, benign Start:30-May-2013 Instruction Type:Provider Instructions for Treatment Patient Instructions Indication:Hypothyroidism Start:09-Mar-2013 Instruction Type:Provider Instructions for Treatment Patient Instructions Indication:Depression Start:10-Sep-2012 Instruction Type:Provider Instructions for Treatment Name Dates Details cardiovascular counseling Indication:Hypertension, essential, benign Start:01-Dec-2019 Instruction Type:Provider Instructions for Treatment How to access health informa tion online Indication:Non-smoker Start:01-Dec-2019 Instruction Type:Patient Education How to access health informa tion online - Detail Indication:Non-smoker Start:01-Dec-2019 Instruction Type:Patient Education Patient Instructions Indication:Non-smoker Start:01-Dec-2019 Instruction Type:Provider Instructions for Treatment How to access health informa tion online Indication:Non-smoker Start:07-Nov-2019 Instruction Type:Patient Education How to access health informa tion online - Detail Indication:Non-smoker Start:07-Nov-2019 Instruction Type:Patient Education Patient Instructions Indication:Non-smoker Start:07-Nov-2019 Instruction Type:Provider Instructions for Treatment How to access health informa tion online Indication:Non-smoker Start:01-Nov-2019 Instruction Type:Patient Education How to access health informa tion online - Detail Indication:Non-smoker Start:01-Nov-2019 Instruction Type:Patient Education Patient Instructions Indication:Non-smoker Start:01-Nov-2019 Instruction Type:Provider Instructions for Treatment How to access health informa tion online Indication:Non-smoker Start:07-Apr-2019 Instruction Type:Patient Education How to access health informa tion online - Detail Indication:Non-smoker Start:07-Apr-2019 Instruction Type:Patient Education Patient Instructions Indication:Non-smoker Start:07-Apr-2019 Instruction Type:Provider Instructions for Treatment How to access health informa tion online Indication:Non-smoker Start:03-Feb-2019 Instruction Type:Patient Education How to access health informa tion online - Detail Indication:Non-smoker Start:03-Feb-2019 Instruction Type:Patient Education Patient Instructions Indication:Non-smoker Start:03-Feb-2019 Instruction Type:Provider Instructions for Treatment How to access health informa tion online Indication:Hypertension, essential, benign Start:30-Dec-2018 Instruction Type:Patient Education How to access health informa tion online - Detail Indication:Hypertension, essential, benign Start:30-Dec-2018 Instruction Type:Patient Education Patient Instructions Indication:Hypertension, essential, benign Start:30-Dec-2018 Instruction Type:Provider Instructions for Treatment How to access health informa tion online Indication:BMI 26.0-26.9,adult Start:15-Dec-2016 Instruction Type:Patient Education How to access health informa tion online - Detail Indication:BMI 26.0-26.9,adult Start:15-Dec-2016 Instruction Type:Patient Education Patient Instructions Indication:BMI 26.0-26.9,adult Start:15-Dec-2016 Instruction Type:Provider Instructions for Treatment Patient Instructions Indication:Depression Start:26-Feb-2016 Instruction Type:Provider Instructions for Treatment How to access health informa tion online Indication:Medicare annual wellness visit, initial Start:20-Dec-2015 Instruction Type:Patient Education How to access health informa tion online - Detail Indication:Medicare annual wellness visit, initial Start:20-Dec-2015 Instruction Type:Patient Education Patient Instructions Indication:Medicare annual wellness visit, initial Start:20-Dec-2015 Instruction Type:Provider Instructions for Treatment How to access health informa tion online Indication:Depression Start:18-Oct-2015 Instruction Type:Patient Education How to access health informa tion online - Detail Indication:Depression Start:18-Oct-2015 Instruction Type:Patient Education Patient Instructions Indication:Depression Start:18-Oct-2015 Instruction Type:Provider Instructions for Treatment How to access health informa tion online Indication:Depression Start:18-Apr-2015 Instruction Type:Patient Education How to access health informa tion online - Detail Indication:Depression Start:18-Apr-2015 Instruction Type:Patient Education Patient Instructions Indication:Depression Start:18-Apr-2015 Instruction Type:Provider Instructions for Treatment How to access health informa tion online Indication:Depression Start:11-Oct-2014 Instruction Type:Patient Education How to access health informa tion online - Detail Indication:Depression Start:11-Oct-2014 Instruction Type:Patient Education Patient Instructions Indication:Depression Start:11-Oct-2014 Instruction Type:Provider Instructions for Treatment Patient Instructions Indication:Depression Start:19-Apr-2014 Instruction Type:Provider Instructions for Treatment Patient Instructions Indication:Hypertension, essential, benign Start:04-Oct-2013 Instruction Type:Provider Instructions for Treatment Patient Instructions Indication:Hypertension, essential, benign Start:15-Jun-2013 Instruction Type:Provider Instructions for Treatment Patient Instructions Indication:Hypertension, essential, benign Start:30-May-2013 Instruction Type:Provider Instructions for Treatment Patient Instructions Indication:Hypothyroidism Start:09-Mar-2013 Instruction Type:Provider Instructions for Treatment Patient Instructions Indication:Depression Start:10-Sep-2012 Instruction Type:Provider Instructions for Treatment Name Dates Details cardiovascular counseling Indication:Hypertension, essential, benign Start:01-Dec-2019 Instruction Type:Provider Instructions for Treatment How to access health informa tion online Indication:Non-smoker Start:01-Dec-2019 Instruction Type:Patient Education How to access health informa tion online - Detail Indication:Non-smoker Start:01-Dec-2019 Instruction Type:Patient Education Patient Instructions Indication:Non-smoker Start:01-Dec-2019 Instruction Type:Provider Instructions for Treatment How to access health informa tion online Indication:Non-smoker Start:07-Nov-2019 Instruction Type:Patient Education How to access health informa tion online - Detail Indication:Non-smoker Start:07-Nov-2019 Instruction Type:Patient Education Patient Instructions Indication:Non-smoker Start:07-Nov-2019 Instruction Type:Provider Instructions for Treatment How to access health informa tion online Indication:Non-smoker Start:01-Nov-2019 Instruction Type:Patient Education How to access health informa tion online - Detail Indication:Non-smoker Start:01-Nov-2019 Instruction Type:Patient Education Patient Instructions Indication:Non-smoker Start:01-Nov-2019 Instruction Type:Provider Instructions for Treatment How to access health informa tion online Indication:Non-smoker Start:07-Apr-2019 Instruction Type:Patient Education How to access health informa tion online - Detail Indication:Non-smoker Start:07-Apr-2019 Instruction Type:Patient Education Patient Instructions Indication:Non-smoker Start:07-Apr-2019 Instruction Type:Provider Instructions for Treatment How to access health informa tion online Indication:Non-smoker Start:03-Feb-2019 Instruction Type:Patient Education How to access health informa tion online - Detail Indication:Non-smoker Start:03-Feb-2019 Instruction Type:Patient Education Patient Instructions Indication:Non-smoker Start:03-Feb-2019 Instruction Type:Provider Instructions for Treatment How to access health informa tion online Indication:Hypertension, essential, benign Start:30-Dec-2018 Instruction Type:Patient Education How to access health informa tion online - Detail Indication:Hypertension, essential, benign Start:30-Dec-2018 Instruction Type:Patient Education Patient Instructions Indication:Hypertension, essential, benign Start:30-Dec-2018 Instruction Type:Provider Instructions for Treatment How to access health informa tion online Indication:BMI 26.0-26.9,adult Start:15-Dec-2016 Instruction Type:Patient Education How to access health informa tion online - Detail Indication:BMI 26.0-26.9,adult Start:15-Dec-2016 Instruction Type:Patient Education Patient Instructions Indication:BMI 26.0-26.9,adult Start:15-Dec-2016 Instruction Type:Provider Instructions for Treatment Patient Instructions Indication:Depression Start:26-Feb-2016 Instruction Type:Provider Instructions for Treatment How to access health informa tion online Indication:Medicare annual wellness visit, initial Start:20-Dec-2015 Instruction Type:Patient Education How to access health informa tion online - Detail Indication:Medicare annual wellness visit, initial Start:20-Dec-2015 Instruction Type:Patient Education Patient Instructions Indication:Medicare annual wellness visit, initial Start:20-Dec-2015 Instruction Type:Provider Instructions for Treatment How to access health informa tion online Indication:Depression Start:18-Oct-2015 Instruction Type:Patient Education How to access health informa tion online - Detail Indication:Depression Start:18-Oct-2015 Instruction Type:Patient Education Patient Instructions Indication:Depression Start:18-Oct-2015 Instruction Type:Provider Instructions for Treatment How to access health informa tion online Indication:Depression Start:18-Apr-2015 Instruction Type:Patient Education How to access health informa tion online - Detail Indication:Depression Start:18-Apr-2015 Instruction Type:Patient Education Patient Instructions Indication:Depression Start:18-Apr-2015 Instruction Type:Provider Instructions for Treatment How to access health informa tion online Indication:Depression Start:11-Oct-2014 Instruction Type:Patient Education How to access health informa tion online - Detail Indication:Depression Start:11-Oct-2014 Instruction Type:Patient Education Patient Instructions Indication:Depression Start:11-Oct-2014 Instruction Type:Provider Instructions for Treatment Patient Instructions Indication:Depression Start:19-Apr-2014 Instruction Type:Provider Instructions for Treatment Patient Instructions Indication:Hypertension, essential, benign Start:04-Oct-2013 Instruction Type:Provider Instructions for Treatment Patient Instructions Indication:Hypertension, essential, benign Start:15-Jun-2013 Instruction Type:Provider Instructions for Treatment Patient Instructions Indication:Hypertension, essential, benign Start:30-May-2013 Instruction Type:Provider Instructions for Treatment Patient Instructions Indication:Hypothyroidism Start:09-Mar-2013 Instruction Type:Provider Instructions for Treatment Patient Instructions Indication:Depression Start:10-Sep-2012 Instruction Type:Provider Instructions for Treatment Name Dates Details How to access health informa tion online Indication:BMI 25.0-25.9,adult Start:15-Dec-2019 Instruction Type:Patient Education How to access health informa tion online - Detail Indication:BMI 25.0-25.9,adult Start:15-Dec-2019 Instruction Type:Patient Education Patient Instructions Indication:BMI 25.0-25.9,adult Start:15-Dec-2019 Instruction Type:Provider Instructions for Treatment cardiovascular counseling Indication:Hypertension, essential, benign Start:01-Dec-2019 Instruction Type:Provider Instructions for Treatment How to access health informa tion online Indication:Non-smoker Start:01-Dec-2019 Instruction Type:Patient Education How to access health informa tion online - Detail Indication:Non-smoker Start:01-Dec-2019 Instruction Type:Patient Education Patient Instructions Indication:Non-smoker Start:01-Dec-2019 Instruction Type:Provider Instructions for Treatment How to access health informa tion online Indication:Non-smoker Start:07-Nov-2019 Instruction Type:Patient Education How to access health informa tion online - Detail Indication:Non-smoker Start:07-Nov-2019 Instruction Type:Patient Education Patient Instructions Indication:Non-smoker Start:07-Nov-2019 Instruction Type:Provider Instructions for Treatment How to access health informa tion online Indication:Non-smoker Start:01-Nov-2019 Instruction Type:Patient Education How to access health informa tion online - Detail Indication:Non-smoker Start:01-Nov-2019 Instruction Type:Patient Education Patient Instructions Indication:Non-smoker Start:01-Nov-2019 Instruction Type:Provider Instructions for Treatment How to access health informa tion online Indication:Non-smoker Start:07-Apr-2019 Instruction Type:Patient Education How to access health informa tion online - Detail Indication:Non-smoker Start:07-Apr-2019 Instruction Type:Patient Education Patient Instructions Indication:Non-smoker Start:07-Apr-2019 Instruction Type:Provider Instructions for Treatment How to access health informa tion online Indication:Non-smoker Start:03-Feb-2019 Instruction Type:Patient Education How to access health informa tion online - Detail Indication:Non-smoker Start:03-Feb-2019 Instruction Type:Patient Education Patient Instructions Indication:Non-smoker Start:03-Feb-2019 Instruction Type:Provider Instructions for Treatment How to access health informa tion online Indication:Hypertension, essential, benign Start:30-Dec-2018 Instruction Type:Patient Education How to access health informa tion online - Detail Indication:Hypertension, essential, benign Start:30-Dec-2018 Instruction Type:Patient Education Patient Instructions Indication:Hypertension, essential, benign Start:30-Dec-2018 Instruction Type:Provider Instructions for Treatment How to access health informa tion online Indication:BMI 26.0-26.9,adult Start:15-Dec-2016 Instruction Type:Patient Education How to access health informa tion online - Detail Indication:BMI 26.0-26.9,adult Start:15-Dec-2016 Instruction Type:Patient Education Patient Instructions Indication:BMI 26.0-26.9,adult Start:15-Dec-2016 Instruction Type:Provider Instructions for Treatment Patient Instructions Indication:Depression Start:26-Feb-2016 Instruction Type:Provider Instructions for Treatment How to access health informa tion online Indication:Medicare annual wellness visit, initial Start:20-Dec-2015 Instruction Type:Patient Education How to access health informa tion online - Detail Indication:Medicare annual wellness visit, initial Start:20-Dec-2015 Instruction Type:Patient Education Patient Instructions Indication:Medicare annual wellness visit, initial Start:20-Dec-2015 Instruction Type:Provider Instructions for Treatment How to access health informa tion online Indication:Depression Start:18-Oct-2015 Instruction Type:Patient Education How to access health informa tion online - Detail Indication:Depression Start:18-Oct-2015 Instruction Type:Patient Education Patient Instructions Indication:Depression Start:18-Oct-2015 Instruction Type:Provider Instructions for Treatment How to access health informa tion online Indication:Depression Start:18-Apr-2015 Instruction Type:Patient Education How to access health informa tion online - Detail Indication:Depression Start:18-Apr-2015 Instruction Type:Patient Education Patient Instructions Indication:Depression Start:18-Apr-2015 Instruction Type:Provider Instructions for Treatment How to access health informa tion online Indication:Depression Start:11-Oct-2014 Instruction Type:Patient Education How to access health informa tion online - Detail Indication:Depression Start:11-Oct-2014 Instruction Type:Patient Education Patient Instructions Indication:Depression Start:11-Oct-2014 Instruction Type:Provider Instructions for Treatment Patient Instructions Indication:Depression Start:19-Apr-2014 Instruction Type:Provider Instructions for Treatment Patient Instructions Indication:Hypertension, essential, benign Start:04-Oct-2013 Instruction Type:Provider Instructions for Treatment Patient Instructions Indication:Hypertension, essential, benign Start:15-Jun-2013 Instruction Type:Provider Instructions for Treatment Patient Instructions Indication:Hypertension, essential, benign Start:30-May-2013 Instruction Type:Provider Instructions for Treatment Patient Instructions Indication:Hypothyroidism Start:09-Mar-2013 Instruction Type:Provider Instructions for Treatment Patient Instructions Indication:Depression Start:10-Sep-2012 Instruction Type:Provider Instructions for Treatment Name Dates Details How to access health informa tion online Indication:Shingles of eyelid Start:12-Apr-2020 Instruction Type:Patient Education How to access health informa tion online - Detail Indication:Shingles of eyelid Start:12-Apr-2020 Instruction Type:Patient Education Patient Instructions Indication:Shingles of eyelid Start:12-Apr-2020 Instruction Type:Provider Instructions for Treatment How to access health informa tion online Indication:BMI 25.0-25.9,adult Start:15-Dec-2019 Instruction Type:Patient Education How to access health informa tion online - Detail Indication:BMI 25.0-25.9,adult Start:15-Dec-2019 Instruction Type:Patient Education Patient Instructions Indication:BMI 25.0-25.9,adult Start:15-Dec-2019 Instruction Type:Provider Instructions for Treatment cardiovascular counseling Indication:Hypertension, essential, benign Start:01-Dec-2019 Instruction Type:Provider Instructions for Treatment How to access health informa tion online Indication:Non-smoker Start:01-Dec-2019 Instruction Type:Patient Education How to access health informa tion online - Detail Indication:Non-smoker Start:01-Dec-2019 Instruction Type:Patient Education Patient Instructions Indication:Non-smoker Start:01-Dec-2019 Instruction Type:Provider Instructions for Treatment How to access health informa tion online Indication:Non-smoker Start:07-Nov-2019 Instruction Type:Patient Education How to access health informa tion online - Detail Indication:Non-smoker Start:07-Nov-2019 Instruction Type:Patient Education Patient Instructions Indication:Non-smoker Start:07-Nov-2019 Instruction Type:Provider Instructions for Treatment How to access health informa tion online Indication:Non-smoker Start:01-Nov-2019 Instruction Type:Patient Education How to access health informa tion online - Detail Indication:Non-smoker Start:01-Nov-2019 Instruction Type:Patient Education Patient Instructions Indication:Non-smoker Start:01-Nov-2019 Instruction Type:Provider Instructions for Treatment How to access health informa tion online Indication:Non-smoker Start:07-Apr-2019 Instruction Type:Patient Education How to access health informa tion online - Detail Indication:Non-smoker Start:07-Apr-2019 Instruction Type:Patient Education Patient Instructions Indication:Non-smoker Start:07-Apr-2019 Instruction Type:Provider Instructions for Treatment How to access health informa tion online Indication:Non-smoker Start:03-Feb-2019 Instruction Type:Patient Education How to access health informa tion online - Detail Indication:Non-smoker Start:03-Feb-2019 Instruction Type:Patient Education Patient Instructions Indication:Non-smoker Start:03-Feb-2019 Instruction Type:Provider Instructions for Treatment How to access health informa tion online Indication:Hypertension, essential, benign Start:30-Dec-2018 Instruction Type:Patient Education How to access health informa tion online - Detail Indication:Hypertension, essential, benign Start:30-Dec-2018 Instruction Type:Patient Education Patient Instructions Indication:Hypertension, essential, benign Start:30-Dec-2018 Instruction Type:Provider Instructions for Treatment How to access health informa tion online Indication:BMI 26.0-26.9,adult Start:15-Dec-2016 Instruction Type:Patient Education How to access health informa tion online - Detail Indication:BMI 26.0-26.9,adult Start:15-Dec-2016 Instruction Type:Patient Education Patient Instructions Indication:BMI 26.0-26.9,adult Start:15-Dec-2016 Instruction Type:Provider Instructions for Treatment Patient Instructions Indication:Depression Start:26-Feb-2016 Instruction Type:Provider Instructions for Treatment How to access health informa tion online Indication:Medicare annual wellness visit, initial Start:20-Dec-2015 Instruction Type:Patient Education How to access health informa tion online - Detail Indication:Medicare annual wellness visit, initial Start:20-Dec-2015 Instruction Type:Patient Education Patient Instructions Indication:Medicare annual wellness visit, initial Start:20-Dec-2015 Instruction Type:Provider Instructions for Treatment How to access health informa tion online Indication:Depression Start:18-Oct-2015 Instruction Type:Patient Education How to access health informa tion online - Detail Indication:Depression Start:18-Oct-2015 Instruction Type:Patient Education Patient Instructions Indication:Depression Start:18-Oct-2015 Instruction Type:Provider Instructions for Treatment How to access health informa tion online Indication:Depression Start:18-Apr-2015 Instruction Type:Patient Education How to access health informa tion online - Detail Indication:Depression Start:18-Apr-2015 Instruction Type:Patient Education Patient Instructions Indication:Depression Start:18-Apr-2015 Instruction Type:Provider Instructions for Treatment How to access health informa tion online Indication:Depression Start:11-Oct-2014 Instruction Type:Patient Education How to access health informa tion online - Detail Indication:Depression Start:11-Oct-2014 Instruction Type:Patient Education Patient Instructions Indication:Depression Start:11-Oct-2014 Instruction Type:Provider Instructions for Treatment Patient Instructions Indication:Depression Start:19-Apr-2014 Instruction Type:Provider Instructions for Treatment Patient Instructions Indication:Hypertension, essential, benign Start:04-Oct-2013 Instruction Type:Provider Instructions for Treatment Patient Instructions Indication:Hypertension, essential, benign Start:15-Jun-2013 Instruction Type:Provider Instructions for Treatment Patient Instructions Indication:Hypertension, essential, benign Start:30-May-2013 Instruction Type:Provider Instructions for Treatment Patient Instructions Indication:Hypothyroidism Start:09-Mar-2013 Instruction Type:Provider Instructions for Treatment Patient Instructions Indication:Depression Start:10-Sep-2012 Instruction Type:Provider Instructions for Treatment Name Dates Details How to access health informa tion online Indication:Shingles of eyelid Start:12-Apr-2020 Instruction Type:Patient Education How to access health informa tion online - Detail Indication:Shingles of eyelid Start:12-Apr-2020 Instruction Type:Patient Education Patient Instructions Indication:Shingles of eyelid Start:12-Apr-2020 Instruction Type:Provider Instructions for Treatment How to access health informa tion online Indication:BMI 25.0-25.9,adult Start:15-Dec-2019 Instruction Type:Patient Education How to access health informa tion online - Detail Indication:BMI 25.0-25.9,adult Start:15-Dec-2019 Instruction Type:Patient Education Patient Instructions Indication:BMI 25.0-25.9,adult Start:15-Dec-2019 Instruction Type:Provider Instructions for Treatment cardiovascular counseling Indication:Hypertension, essential, benign Start:01-Dec-2019 Instruction Type:Provider Instructions for Treatment How to access health informa tion online Indication:Non-smoker Start:01-Dec-2019 Instruction Type:Patient Education How to access health informa tion online - Detail Indication:Non-smoker Start:01-Dec-2019 Instruction Type:Patient Education Patient Instructions Indication:Non-smoker Start:01-Dec-2019 Instruction Type:Provider Instructions for Treatment How to access health informa tion online Indication:Non-smoker Start:07-Nov-2019 Instruction Type:Patient Education How to access health informa tion online - Detail Indication:Non-smoker Start:07-Nov-2019 Instruction Type:Patient Education Patient Instructions Indication:Non-smoker Start:07-Nov-2019 Instruction Type:Provider Instructions for Treatment How to access health informa tion online Indication:Non-smoker Start:01-Nov-2019 Instruction Type:Patient Education How to access health informa tion online - Detail Indication:Non-smoker Start:01-Nov-2019 Instruction Type:Patient Education Patient Instructions Indication:Non-smoker Start:01-Nov-2019 Instruction Type:Provider Instructions for Treatment How to access health informa tion online Indication:Non-smoker Start:07-Apr-2019 Instruction Type:Patient Education How to access health informa tion online - Detail Indication:Non-smoker Start:07-Apr-2019 Instruction Type:Patient Education Patient Instructions Indication:Non-smoker Start:07-Apr-2019 Instruction Type:Provider Instructions for Treatment How to access health informa tion online Indication:Non-smoker Start:03-Feb-2019 Instruction Type:Patient Education How to access health informa tion online - Detail Indication:Non-smoker Start:03-Feb-2019 Instruction Type:Patient Education Patient Instructions Indication:Non-smoker Start:03-Feb-2019 Instruction Type:Provider Instructions for Treatment How to access health informa tion online Indication:Hypertension, essential, benign Start:30-Dec-2018 Instruction Type:Patient Education How to access health informa tion online - Detail Indication:Hypertension, essential, benign Start:30-Dec-2018 Instruction Type:Patient Education Patient Instructions Indication:Hypertension, essential, benign Start:30-Dec-2018 Instruction Type:Provider Instructions for Treatment How to access health informa tion online Indication:BMI 26.0-26.9,adult Start:15-Dec-2016 Instruction Type:Patient Education How to access health informa tion online - Detail Indication:BMI 26.0-26.9,adult Start:15-Dec-2016 Instruction Type:Patient Education Patient Instructions Indication:BMI 26.0-26.9,adult Start:15-Dec-2016 Instruction Type:Provider Instructions for Treatment Patient Instructions Indication:Depression Start:26-Feb-2016 Instruction Type:Provider Instructions for Treatment How to access health informa tion online Indication:Medicare annual wellness visit, initial Start:20-Dec-2015 Instruction Type:Patient Education How to access health informa tion online - Detail Indication:Medicare annual wellness visit, initial Start:20-Dec-2015 Instruction Type:Patient Education Patient Instructions Indication:Medicare annual wellness visit, initial Start:20-Dec-2015 Instruction Type:Provider Instructions for Treatment How to access health informa tion online Indication:Depression Start:18-Oct-2015 Instruction Type:Patient Education How to access health informa tion online - Detail Indication:Depression Start:18-Oct-2015 Instruction Type:Patient Education Patient Instructions Indication:Depression Start:18-Oct-2015 Instruction Type:Provider Instructions for Treatment How to access health informa tion online Indication:Depression Start:18-Apr-2015 Instruction Type:Patient Education How to access health informa tion online - Detail Indication:Depression Start:18-Apr-2015 Instruction Type:Patient Education Patient Instructions Indication:Depression Start:18-Apr-2015 Instruction Type:Provider Instructions for Treatment How to access health informa tion online Indication:Depression Start:11-Oct-2014 Instruction Type:Patient Education How to access health informa tion online - Detail Indication:Depression Start:11-Oct-2014 Instruction Type:Patient Education Patient Instructions Indication:Depression Start:11-Oct-2014 Instruction Type:Provider Instructions for Treatment Patient Instructions Indication:Depression Start:19-Apr-2014 Instruction Type:Provider Instructions for Treatment Patient Instructions Indication:Hypertension, essential, benign Start:04-Oct-2013 Instruction Type:Provider Instructions for Treatment Patient Instructions Indication:Hypertension, essential, benign Start:15-Jun-2013 Instruction Type:Provider Instructions for Treatment Patient Instructions Indication:Hypertension, essential, benign Start:30-May-2013 Instruction Type:Provider Instructions for Treatment Patient Instructions Indication:Hypothyroidism Start:09-Mar-2013 Instruction Type:Provider Instructions for Treatment Patient Instructions Indication:Depression Start:10-Sep-2012 Instruction Type:Provider Instructions for Treatment Name Dates Details How to access health informa tion online Indication:Shingles of eyelid Start:12-Apr-2020 Instruction Type:Patient Education How to access health informa tion online - Detail Indication:Shingles of eyelid Start:12-Apr-2020 Instruction Type:Patient Education Patient Instructions Indication:Shingles of eyelid Start:12-Apr-2020 Instruction Type:Provider Instructions for Treatment How to access health informa tion online Indication:BMI 25.0-25.9,adult Start:15-Dec-2019 Instruction Type:Patient Education How to access health informa tion online - Detail Indication:BMI 25.0-25.9,adult Start:15-Dec-2019 Instruction Type:Patient Education Patient Instructions Indication:BMI 25.0-25.9,adult Start:15-Dec-2019 Instruction Type:Provider Instructions for Treatment cardiovascular counseling Indication:Hypertension, essential, benign Start:01-Dec-2019 Instruction Type:Provider Instructions for Treatment How to access health informa tion online Indication:Non-smoker Start:01-Dec-2019 Instruction Type:Patient Education How to access health informa tion online - Detail Indication:Non-smoker Start:01-Dec-2019 Instruction Type:Patient Education Patient Instructions Indication:Non-smoker Start:01-Dec-2019 Instruction Type:Provider Instructions for Treatment How to access health informa tion online Indication:Non-smoker Start:07-Nov-2019 Instruction Type:Patient Education How to access health informa tion online - Detail Indication:Non-smoker Start:07-Nov-2019 Instruction Type:Patient Education Patient Instructions Indication:Non-smoker Start:07-Nov-2019 Instruction Type:Provider Instructions for Treatment How to access health informa tion online Indication:Non-smoker Start:01-Nov-2019 Instruction Type:Patient Education How to access health informa tion online - Detail Indication:Non-smoker Start:01-Nov-2019 Instruction Type:Patient Education Patient Instructions Indication:Non-smoker Start:01-Nov-2019 Instruction Type:Provider Instructions for Treatment How to access health informa tion online Indication:Non-smoker Start:07-Apr-2019 Instruction Type:Patient Education How to access health informa tion online - Detail Indication:Non-smoker Start:07-Apr-2019 Instruction Type:Patient Education Patient Instructions Indication:Non-smoker Start:07-Apr-2019 Instruction Type:Provider Instructions for Treatment How to access health informa tion online Indication:Non-smoker Start:03-Feb-2019 Instruction Type:Patient Education How to access health informa tion online - Detail Indication:Non-smoker Start:03-Feb-2019 Instruction Type:Patient Education Patient Instructions Indication:Non-smoker Start:03-Feb-2019 Instruction Type:Provider Instructions for Treatment How to access health informa tion online Indication:Hypertension, essential, benign Start:30-Dec-2018 Instruction Type:Patient Education How to access health informa tion online - Detail Indication:Hypertension, essential, benign Start:30-Dec-2018 Instruction Type:Patient Education Patient Instructions Indication:Hypertension, essential, benign Start:30-Dec-2018 Instruction Type:Provider Instructions for Treatment How to access health informa tion online Indication:BMI 26.0-26.9,adult Start:15-Dec-2016 Instruction Type:Patient Education How to access health informa tion online - Detail Indication:BMI 26.0-26.9,adult Start:15-Dec-2016 Instruction Type:Patient Education Patient Instructions Indication:BMI 26.0-26.9,adult Start:15-Dec-2016 Instruction Type:Provider Instructions for Treatment Patient Instructions Indication:Depression Start:26-Feb-2016 Instruction Type:Provider Instructions for Treatment How to access health informa tion online Indication:Medicare annual wellness visit, initial Start:20-Dec-2015 Instruction Type:Patient Education How to access health informa tion online - Detail Indication:Medicare annual wellness visit, initial Start:20-Dec-2015 Instruction Type:Patient Education Patient Instructions Indication:Medicare annual wellness visit, initial Start:20-Dec-2015 Instruction Type:Provider Instructions for Treatment How to access health informa tion online Indication:Depression Start:18-Oct-2015 Instruction Type:Patient Education How to access health informa tion online - Detail Indication:Depression Start:18-Oct-2015 Instruction Type:Patient Education Patient Instructions Indication:Depression Start:18-Oct-2015 Instruction Type:Provider Instructions for Treatment How to access health informa tion online Indication:Depression Start:18-Apr-2015 Instruction Type:Patient Education How to access health informa tion online - Detail Indication:Depression Start:18-Apr-2015 Instruction Type:Patient Education Patient Instructions Indication:Depression Start:18-Apr-2015 Instruction Type:Provider Instructions for Treatment How to access health informa tion online Indication:Depression Start:11-Oct-2014 Instruction Type:Patient Education How to access health informa tion online - Detail Indication:Depression Start:11-Oct-2014 Instruction Type:Patient Education Patient Instructions Indication:Depression Start:11-Oct-2014 Instruction Type:Provider Instructions for Treatment Patient Instructions Indication:Depression Start:19-Apr-2014 Instruction Type:Provider Instructions for Treatment Patient Instructions Indication:Hypertension, essential, benign Start:04-Oct-2013 Instruction Type:Provider Instructions for Treatment Patient Instructions Indication:Hypertension, essential, benign Start:15-Jun-2013 Instruction Type:Provider Instructions for Treatment Patient Instructions Indication:Hypertension, essential, benign Start:30-May-2013 Instruction Type:Provider Instructions for Treatment Patient Instructions Indication:Hypothyroidism Start:09-Mar-2013 Instruction Type:Provider Instructions for Treatment Patient Instructions Indication:Depression Start:10-Sep-2012 Instruction Type:Provider Instructions for Treatment Name Dates Details How to Access Health Informa tion Online using Patient Portal and [employer] Apps Indication:Non-smoker Start:10-May-2020 Instruction Type:Patient Education Patient Instructions Indication:Non-smoker Start:10-May-2020 Instruction Type:Provider Instructions for Treatment How to access health informa tion online Indication:Shingles of eyelid Start:12-Apr-2020 Instruction Type:Patient Education How to access health informa tion online - Detail Indication:Shingles of eyelid Start:12-Apr-2020 Instruction Type:Patient Education Patient Instructions Indication:Shingles of eyelid Start:12-Apr-2020 Instruction Type:Provider Instructions for Treatment How to access health informa tion online Indication:BMI 25.0-25.9,adult Start:15-Dec-2019 Instruction Type:Patient Education How to access health informa tion online - Detail Indication:BMI 25.0-25.9,adult Start:15-Dec-2019 Instruction Type:Patient Education Patient Instructions Indication:BMI 25.0-25.9,adult Start:15-Dec-2019 Instruction Type:Provider Instructions for Treatment cardiovascular counseling Indication:Hypertension, essential, benign Start:01-Dec-2019 Instruction Type:Provider Instructions for Treatment How to access health informa tion online Indication:Non-smoker Start:01-Dec-2019 Instruction Type:Patient Education How to access health informa tion online - Detail Indication:Non-smoker Start:01-Dec-2019 Instruction Type:Patient Education Patient Instructions Indication:Non-smoker Start:01-Dec-2019 Instruction Type:Provider Instructions for Treatment How to access health informa tion online Indication:Non-smoker Start:07-Nov-2019 Instruction Type:Patient Education How to access health informa tion online - Detail Indication:Non-smoker Start:07-Nov-2019 Instruction Type:Patient Education Patient Instructions Indication:Non-smoker Start:07-Nov-2019 Instruction Type:Provider Instructions for Treatment How to access health informa tion online Indication:Non-smoker Start:01-Nov-2019 Instruction Type:Patient Education How to access health informa tion online - Detail Indication:Non-smoker Start:01-Nov-2019 Instruction Type:Patient Education Patient Instructions Indication:Non-smoker Start:01-Nov-2019 Instruction Type:Provider Instructions for Treatment How to access health informa tion online Indication:Non-smoker Start:07-Apr-2019 Instruction Type:Patient Education How to access health informa tion online - Detail Indication:Non-smoker Start:07-Apr-2019 Instruction Type:Patient Education Patient Instructions Indication:Non-smoker Start:07-Apr-2019 Instruction Type:Provider Instructions for Treatment How to access health informa tion online Indication:Non-smoker Start:03-Feb-2019 Instruction Type:Patient Education How to access health informa tion online - Detail Indication:Non-smoker Start:03-Feb-2019 Instruction Type:Patient Education Patient Instructions Indication:Non-smoker Start:03-Feb-2019 Instruction Type:Provider Instructions for Treatment How to access health informa tion online Indication:Hypertension, essential, benign Start:30-Dec-2018 Instruction Type:Patient Education How to access health informa tion online - Detail Indication:Hypertension, essential, benign Start:30-Dec-2018 Instruction Type:Patient Education Patient Instructions Indication:Hypertension, essential, benign Start:30-Dec-2018 Instruction Type:Provider Instructions for Treatment How to access health informa tion online Indication:BMI 26.0-26.9,adult Start:15-Dec-2016 Instruction Type:Patient Education How to access health informa tion online - Detail Indication:BMI 26.0-26.9,adult Start:15-Dec-2016 Instruction Type:Patient Education Patient Instructions Indication:BMI 26.0-26.9,adult Start:15-Dec-2016 Instruction Type:Provider Instructions for Treatment Patient Instructions Indication:Depression Start:26-Feb-2016 Instruction Type:Provider Instructions for Treatment How to access health informa tion online Indication:Medicare annual wellness visit, initial Start:20-Dec-2015 Instruction Type:Patient Education How to access health informa tion online - Detail Indication:Medicare annual wellness visit, initial Start:20-Dec-2015 Instruction Type:Patient Education Patient Instructions Indication:Medicare annual wellness visit, initial Start:20-Dec-2015 Instruction Type:Provider Instructions for Treatment How to access health informa tion online Indication:Depression Start:18-Oct-2015 Instruction Type:Patient Education How to access health informa tion online - Detail Indication:Depression Start:18-Oct-2015 Instruction Type:Patient Education Patient Instructions Indication:Depression Start:18-Oct-2015 Instruction Type:Provider Instructions for Treatment How to access health informa tion online Indication:Depression Start:18-Apr-2015 Instruction Type:Patient Education How to access health informa tion online - Detail Indication:Depression Start:18-Apr-2015 Instruction Type:Patient Education Patient Instructions Indication:Depression Start:18-Apr-2015 Instruction Type:Provider Instructions for Treatment How to access health informa tion online Indication:Depression Start:11-Oct-2014 Instruction Type:Patient Education How to access health informa tion online - Detail Indication:Depression Start:11-Oct-2014 Instruction Type:Patient Education Patient Instructions Indication:Depression Start:11-Oct-2014 Instruction Type:Provider Instructions for Treatment Patient Instructions Indication:Depression Start:19-Apr-2014 Instruction Type:Provider Instructions for Treatment Patient Instructions Indication:Hypertension, essential, benign Start:04-Oct-2013 Instruction Type:Provider Instructions for Treatment Patient Instructions Indication:Hypertension, essential, benign Start:15-Jun-2013 Instruction Type:Provider Instructions for Treatment Patient Instructions Indication:Hypertension, essential, benign Start:30-May-2013 Instruction Type:Provider Instructions for Treatment Patient Instructions Indication:Hypothyroidism Start:09-Mar-2013 Instruction Type:Provider Instructions for Treatment Patient Instructions Indication:Depression Start:10-Sep-2012 Instruction Type:Provider Instructions for Treatment Name Dates Details Patient Instructions Indication:BMI 25.0-25.9,adult Start:28-Jun-2020 Instruction Type:Provider Instructions for Treatment How to Access Health Informa tion Online using Patient Portal and [employer] Apps Indication:BMI 25.0-25.9,adult Start:28-Jun-2020 Instruction Type:Patient Education How to Access Health Informa tion Online using Patient Portal and [employer] Apps Indication:Non-smoker Start:12-Jun-2020 Instruction Type:Patient Education Patient Instructions Indication:Non-smoker Start:12-Jun-2020 Instruction Type:Provider Instructions for Treatment How to Access Health Informa tion Online using Patient Portal and [employer] Apps Indication:Non-smoker Start:10-May-2020 Instruction Type:Patient Education Patient Instructions Indication:Non-smoker Start:10-May-2020 Instruction Type:Provider Instructions for Treatment How to access health informa tion online Indication:Shingles of eyelid Start:12-Apr-2020 Instruction Type:Patient Education How to access health informa tion online - Detail Indication:Shingles of eyelid Start:12-Apr-2020 Instruction Type:Patient Education Patient Instructions Indication:Shingles of eyelid Start:12-Apr-2020 Instruction Type:Provider Instructions for Treatment How to access health informa tion online Indication:BMI 25.0-25.9,adult Start:15-Dec-2019 Instruction Type:Patient Education How to access health informa tion online - Detail Indication:BMI 25.0-25.9,adult Start:15-Dec-2019 Instruction Type:Patient Education Patient Instructions Indication:BMI 25.0-25.9,adult Start:15-Dec-2019 Instruction Type:Provider Instructions for Treatment cardiovascular counseling Indication:Hypertension, essential, benign Start:01-Dec-2019 Instruction Type:Provider Instructions for Treatment How to access health informa tion online Indication:Non-smoker Start:01-Dec-2019 Instruction Type:Patient Education How to access health informa tion online - Detail Indication:Non-smoker Start:01-Dec-2019 Instruction Type:Patient Education Patient Instructions Indication:Non-smoker Start:01-Dec-2019 Instruction Type:Provider Instructions for Treatment How to access health informa tion online Indication:Non-smoker Start:07-Nov-2019 Instruction Type:Patient Education How to access health informa tion online - Detail Indication:Non-smoker Start:07-Nov-2019 Instruction Type:Patient Education Patient Instructions Indication:Non-smoker Start:07-Nov-2019 Instruction Type:Provider Instructions for Treatment How to access health informa tion online Indication:Non-smoker Start:01-Nov-2019 Instruction Type:Patient Education How to access health informa tion online - Detail Indication:Non-smoker Start:01-Nov-2019 Instruction Type:Patient Education Patient Instructions Indication:Non-smoker Start:01-Nov-2019 Instruction Type:Provider Instructions for Treatment How to access health informa tion online Indication:Non-smoker Start:07-Apr-2019 Instruction Type:Patient Education How to access health informa tion online - Detail Indication:Non-smoker Start:07-Apr-2019 Instruction Type:Patient Education Patient Instructions Indication:Non-smoker Start:07-Apr-2019 Instruction Type:Provider Instructions for Treatment How to access health informa tion online Indication:Non-smoker Start:03-Feb-2019 Instruction Type:Patient Education How to access health informa tion online - Detail Indication:Non-smoker Start:03-Feb-2019 Instruction Type:Patient Education Patient Instructions Indication:Non-smoker Start:03-Feb-2019 Instruction Type:Provider Instructions for Treatment How to access health informa tion online Indication:Hypertension, essential, benign Start:30-Dec-2018 Instruction Type:Patient Education How to access health informa tion online - Detail Indication:Hypertension, essential, benign Start:30-Dec-2018 Instruction Type:Patient Education Patient Instructions Indication:Hypertension, essential, benign Start:30-Dec-2018 Instruction Type:Provider Instructions for Treatment How to access health informa tion online Indication:BMI 26.0-26.9,adult Start:15-Dec-2016 Instruction Type:Patient Education How to access health informa tion online - Detail Indication:BMI 26.0-26.9,adult Start:15-Dec-2016 Instruction Type:Patient Education Patient Instructions Indication:BMI 26.0-26.9,adult Start:15-Dec-2016 Instruction Type:Provider Instructions for Treatment Patient Instructions Indication:Depression Start:26-Feb-2016 Instruction Type:Provider Instructions for Treatment How to access health informa tion online Indication:Medicare annual wellness visit, initial Start:20-Dec-2015 Instruction Type:Patient Education How to access health informa tion online - Detail Indication:Medicare annual wellness visit, initial Start:20-Dec-2015 Instruction Type:Patient Education Patient Instructions Indication:Medicare annual wellness visit, initial Start:20-Dec-2015 Instruction Type:Provider Instructions for Treatment How to access health informa tion online Indication:Depression Start:18-Oct-2015 Instruction Type:Patient Education How to access health informa tion online - Detail Indication:Depression Start:18-Oct-2015 Instruction Type:Patient Education Patient Instructions Indication:Depression Start:18-Oct-2015 Instruction Type:Provider Instructions for Treatment How to access health informa tion online Indication:Depression Start:18-Apr-2015 Instruction Type:Patient Education How to access health informa tion online - Detail Indication:Depression Start:18-Apr-2015 Instruction Type:Patient Education Patient Instructions Indication:Depression Start:18-Apr-2015 Instruction Type:Provider Instructions for Treatment How to access health informa tion online Indication:Depression Start:11-Oct-2014 Instruction Type:Patient Education How to access health informa tion online - Detail Indication:Depression Start:11-Oct-2014 Instruction Type:Patient Education Patient Instructions Indication:Depression Start:11-Oct-2014 Instruction Type:Provider Instructions for Treatment Patient Instructions Indication:Depression Start:19-Apr-2014 Instruction Type:Provider Instructions for Treatment Patient Instructions Indication:Hypertension, essential, benign Start:04-Oct-2013 Instruction Type:Provider Instructions for Treatment Patient Instructions Indication:Hypertension, essential, benign Start:15-Jun-2013 Instruction Type:Provider Instructions for Treatment Patient Instructions Indication:Hypertension, essential, benign Start:30-May-2013 Instruction Type:Provider Instructions for Treatment Patient Instructions Indication:Hypothyroidism Start:09-Mar-2013 Instruction Type:Provider Instructions for Treatment Patient Instructions Indication:Depression Start:10-Sep-2012 Instruction Type:Provider Instructions for Treatment Name Dates Details Patient Instructions Indication:Non-smoker Start:23-Jul-2020 Instruction Type:Provider Instructions for Treatment How to Access Health Informa tion Online using Patient Portal and [employer] Apps Indication:Non-smoker Start:23-Jul-2020 Instruction Type:Patient Education Patient Instructions Indication:BMI 25.0-25.9,adult Start:28-Jun-2020 Instruction Type:Provider Instructions for Treatment How to Access Health Informa tion Online using Patient Portal and [employer] Apps Indication:BMI 25.0-25.9,adult Start:28-Jun-2020 Instruction Type:Patient Education How to Access Health Informa tion Online using Patient Portal and [employer] Apps Indication:Non-smoker Start:12-Jun-2020 Instruction Type:Patient Education Patient Instructions Indication:Non-smoker Start:12-Jun-2020 Instruction Type:Provider Instructions for Treatment How to Access Health Informa tion Online using Patient Portal and [employer] Apps Indication:Non-smoker Start:10-May-2020 Instruction Type:Patient Education Patient Instructions Indication:Non-smoker Start:10-May-2020 Instruction Type:Provider Instructions for Treatment How to access health informa tion online Indication:Shingles of eyelid Start:12-Apr-2020 Instruction Type:Patient Education How to access health informa tion online - Detail Indication:Shingles of eyelid Start:12-Apr-2020 Instruction Type:Patient Education Patient Instructions Indication:Shingles of eyelid Start:12-Apr-2020 Instruction Type:Provider Instructions for Treatment How to access health informa tion online Indication:BMI 25.0-25.9,adult Start:15-Dec-2019 Instruction Type:Patient Education How to access health informa tion online - Detail Indication:BMI 25.0-25.9,adult Start:15-Dec-2019 Instruction Type:Patient Education Patient Instructions Indication:BMI 25.0-25.9,adult Start:15-Dec-2019 Instruction Type:Provider Instructions for Treatment cardiovascular counseling Indication:Hypertension, essential, benign Start:01-Dec-2019 Instruction Type:Provider Instructions for Treatment How to access health informa tion online Indication:Non-smoker Start:01-Dec-2019 Instruction Type:Patient Education How to access health informa tion online - Detail Indication:Non-smoker Start:01-Dec-2019 Instruction Type:Patient Education Patient Instructions Indication:Non-smoker Start:01-Dec-2019 Instruction Type:Provider Instructions for Treatment How to access health informa tion online Indication:Non-smoker Start:07-Nov-2019 Instruction Type:Patient Education How to access health informa tion online - Detail Indication:Non-smoker Start:07-Nov-2019 Instruction Type:Patient Education Patient Instructions Indication:Non-smoker Start:07-Nov-2019 Instruction Type:Provider Instructions for Treatment How to access health informa tion online Indication:Non-smoker Start:01-Nov-2019 Instruction Type:Patient Education How to access health informa tion online - Detail Indication:Non-smoker Start:01-Nov-2019 Instruction Type:Patient Education Patient Instructions Indication:Non-smoker Start:01-Nov-2019 Instruction Type:Provider Instructions for Treatment How to access health informa tion online Indication:Non-smoker Start:07-Apr-2019 Instruction Type:Patient Education How to access health informa tion online - Detail Indication:Non-smoker Start:07-Apr-2019 Instruction Type:Patient Education Patient Instructions Indication:Non-smoker Start:07-Apr-2019 Instruction Type:Provider Instructions for Treatment How to access health informa tion online Indication:Non-smoker Start:03-Feb-2019 Instruction Type:Patient Education How to access health informa tion online - Detail Indication:Non-smoker Start:03-Feb-2019 Instruction Type:Patient Education Patient Instructions Indication:Non-smoker Start:03-Feb-2019 Instruction Type:Provider Instructions for Treatment How to access health informa tion online Indication:Hypertension, essential, benign Start:30-Dec-2018 Instruction Type:Patient Education How to access health informa tion online - Detail Indication:Hypertension, essential, benign Start:30-Dec-2018 Instruction Type:Patient Education Patient Instructions Indication:Hypertension, essential, benign Start:30-Dec-2018 Instruction Type:Provider Instructions for Treatment How to access health informa tion online Indication:BMI 26.0-26.9,adult Start:15-Dec-2016 Instruction Type:Patient Education How to access health informa tion online - Detail Indication:BMI 26.0-26.9,adult Start:15-Dec-2016 Instruction Type:Patient Education Patient Instructions Indication:BMI 26.0-26.9,adult Start:15-Dec-2016 Instruction Type:Provider Instructions for Treatment Patient Instructions Indication:Depression Start:26-Feb-2016 Instruction Type:Provider Instructions for Treatment How to access health informa tion online Indication:Medicare annual wellness visit, initial Start:20-Dec-2015 Instruction Type:Patient Education How to access health informa tion online - Detail Indication:Medicare annual wellness visit, initial Start:20-Dec-2015 Instruction Type:Patient Education Patient Instructions Indication:Medicare annual wellness visit, initial Start:20-Dec-2015 Instruction Type:Provider Instructions for Treatment How to access health informa tion online Indication:Depression Start:18-Oct-2015 Instruction Type:Patient Education How to access health informa tion online - Detail Indication:Depression Start:18-Oct-2015 Instruction Type:Patient Education Patient Instructions Indication:Depression Start:18-Oct-2015 Instruction Type:Provider Instructions for Treatment How to access health informa tion online Indication:Depression Start:18-Apr-2015 Instruction Type:Patient Education How to access health informa tion online - Detail Indication:Depression Start:18-Apr-2015 Instruction Type:Patient Education Patient Instructions Indication:Depression Start:18-Apr-2015 Instruction Type:Provider Instructions for Treatment How to access health informa tion online Indication:Depression Start:11-Oct-2014 Instruction Type:Patient Education How to access health informa tion online - Detail Indication:Depression Start:11-Oct-2014 Instruction Type:Patient Education Patient Instructions Indication:Depression Start:11-Oct-2014 Instruction Type:Provider Instructions for Treatment Patient Instructions Indication:Depression Start:19-Apr-2014 Instruction Type:Provider Instructions for Treatment Patient Instructions Indication:Hypertension, essential, benign Start:04-Oct-2013 Instruction Type:Provider Instructions for Treatment Patient Instructions Indication:Hypertension, essential, benign Start:15-Jun-2013 Instruction Type:Provider Instructions for Treatment Patient Instructions Indication:Hypertension, essential, benign Start:30-May-2013 Instruction Type:Provider Instructions for Treatment Patient Instructions Indication:Hypothyroidism Start:09-Mar-2013 Instruction Type:Provider Instructions for Treatment Patient Instructions Indication:Depression Start:10-Sep-2012 Instruction Type:Provider Instructions for Treatment Name Dates Details How to access health informa tion online Indication:BMI 25.0-25.9,adult Start:15-Dec-2019 Instruction Type:Patient Education How to access health informa tion online - Detail Indication:BMI 25.0-25.9,adult Start:15-Dec-2019 Instruction Type:Patient Education Patient Instructions Indication:BMI 25.0-25.9,adult Start:15-Dec-2019 Instruction Type:Provider Instructions for Treatment cardiovascular counseling Indication:Hypertension, essential, benign Start:01-Dec-2019 Instruction Type:Provider Instructions for Treatment How to access health informa tion online Indication:Non-smoker Start:01-Dec-2019 Instruction Type:Patient Education How to access health informa tion online - Detail Indication:Non-smoker Start:01-Dec-2019 Instruction Type:Patient Education Patient Instructions Indication:Non-smoker Start:01-Dec-2019 Instruction Type:Provider Instructions for Treatment How to access health informa tion online Indication:Non-smoker Start:07-Nov-2019 Instruction Type:Patient Education How to access health informa tion online - Detail Indication:Non-smoker Start:07-Nov-2019 Instruction Type:Patient Education Patient Instructions Indication:Non-smoker Start:07-Nov-2019 Instruction Type:Provider Instructions for Treatment How to access health informa tion online Indication:Non-smoker Start:01-Nov-2019 Instruction Type:Patient Education How to access health informa tion online - Detail Indication:Non-smoker Start:01-Nov-2019 Instruction Type:Patient Education Patient Instructions Indication:Non-smoker Start:01-Nov-2019 Instruction Type:Provider Instructions for Treatment How to access health informa tion online Indication:Non-smoker Start:07-Apr-2019 Instruction Type:Patient Education How to access health informa tion online - Detail Indication:Non-smoker Start:07-Apr-2019 Instruction Type:Patient Education Patient Instructions Indication:Non-smoker Start:07-Apr-2019 Instruction Type:Provider Instructions for Treatment How to access health informa tion online Indication:Non-smoker Start:03-Feb-2019 Instruction Type:Patient Education How to access health informa tion online - Detail Indication:Non-smoker Start:03-Feb-2019 Instruction Type:Patient Education Patient Instructions Indication:Non-smoker Start:03-Feb-2019 Instruction Type:Provider Instructions for Treatment How to access health informa tion online Indication:Hypertension, essential, benign Start:30-Dec-2018 Instruction Type:Patient Education How to access health informa tion online - Detail Indication:Hypertension, essential, benign Start:30-Dec-2018 Instruction Type:Patient Education Patient Instructions Indication:Hypertension, essential, benign Start:30-Dec-2018 Instruction Type:Provider Instructions for Treatment How to access health informa tion online Indication:BMI 26.0-26.9,adult Start:15-Dec-2016 Instruction Type:Patient Education How to access health informa tion online - Detail Indication:BMI 26.0-26.9,adult Start:15-Dec-2016 Instruction Type:Patient Education Patient Instructions Indication:BMI 26.0-26.9,adult Start:15-Dec-2016 Instruction Type:Provider Instructions for Treatment Patient Instructions Indication:Depression Start:26-Feb-2016 Instruction Type:Provider Instructions for Treatment How to access health informa tion online Indication:Medicare annual wellness visit, initial Start:20-Dec-2015 Instruction Type:Patient Education How to access health informa tion online - Detail Indication:Medicare annual wellness visit, initial Start:20-Dec-2015 Instruction Type:Patient Education Patient Instructions Indication:Medicare annual wellness visit, initial Start:20-Dec-2015 Instruction Type:Provider Instructions for Treatment How to access health informa tion online Indication:Depression Start:18-Oct-2015 Instruction Type:Patient Education How to access health informa tion online - Detail Indication:Depression Start:18-Oct-2015 Instruction Type:Patient Education Patient Instructions Indication:Depression Start:18-Oct-2015 Instruction Type:Provider Instructions for Treatment How to access health informa tion online Indication:Depression Start:18-Apr-2015 Instruction Type:Patient Education How to access health informa tion online - Detail Indication:Depression Start:18-Apr-2015 Instruction Type:Patient Education Patient Instructions Indication:Depression Start:18-Apr-2015 Instruction Type:Provider Instructions for Treatment How to access health informa tion online Indication:Depression Start:11-Oct-2014 Instruction Type:Patient Education How to access health informa tion online - Detail Indication:Depression Start:11-Oct-2014 Instruction Type:Patient Education Patient Instructions Indication:Depression Start:11-Oct-2014 Instruction Type:Provider Instructions for Treatment Patient Instructions Indication:Depression Start:19-Apr-2014 Instruction Type:Provider Instructions for Treatment Patient Instructions Indication:Hypertension, essential, benign Start:04-Oct-2013 Instruction Type:Provider Instructions for Treatment Patient Instructions Indication:Hypertension, essential, benign Start:15-Jun-2013 Instruction Type:Provider Instructions for Treatment Patient Instructions Indication:Hypertension, essential, benign Start:30-May-2013 Instruction Type:Provider Instructions for Treatment Patient Instructions Indication:Hypothyroidism Start:09-Mar-2013 Instruction Type:Provider Instructions for Treatment Patient Instructions Indication:Depression Start:10-Sep-2012 Instruction Type:Provider Instructions for Treatment Name Dates Details Patient Instructions Indication:Non-smoker Start:23-Jul-2020 Instruction Type:Provider Instructions for Treatment How to Access Health Informa tion Online using Patient Portal and [employer] Indication:Non-smoker Start:23-Jul-2020 Instruction Type:Patient Education Patient Instructions Indication:BMI 25.0-25.9,adult Start:28-Jun-2020 Instruction Type:Provider Instructions for Treatment How to Access Health Informa tion Online using Patient Portal and [employer] Indication:BMI 25.0-25.9,adult Start:28-Jun-2020 Instruction Type:Patient Education How to Access Health Informa tion Online using Patient Portal and [employer] Apps Indication:Non-smoker Start:12-Jun-2020 Instruction Type:Patient Education Patient Instructions Indication:Non-smoker Start:12-Jun-2020 Instruction Type:Provider Instructions for Treatment How to Access Health Informa tion Online using Patient Portal and [employer] Indication:Non-smoker Start:10-May-2020 Instruction Type:Patient Education Patient Instructions Indication:Non-smoker Start:10-May-2020 Instruction Type:Provider Instructions for Treatment How to access health informa tion online Indication:Shingles of eyelid Start:12-Apr-2020 Instruction Type:Patient Education How to access health informa tion online - Detail Indication:Shingles of eyelid Start:12-Apr-2020 Instruction Type:Patient Education Patient Instructions Indication:Shingles of eyelid Start:12-Apr-2020 Instruction Type:Provider Instructions for Treatment How to access health informa tion online Indication:BMI 25.0-25.9,adult Start:15-Dec-2019 Instruction Type:Patient Education How to access health informa tion online - Detail Indication:BMI 25.0-25.9,adult Start:15-Dec-2019 Instruction Type:Patient Education Patient Instructions Indication:BMI 25.0-25.9,adult Start:15-Dec-2019 Instruction Type:Provider Instructions for Treatment cardiovascular counseling Indication:Hypertension, essential, benign Start:01-Dec-2019 Instruction Type:Provider Instructions for Treatment How to access health informa tion online Indication:Non-smoker Start:01-Dec-2019 Instruction Type:Patient Education How to access health informa tion online - Detail Indication:Non-smoker Start:01-Dec-2019 Instruction Type:Patient Education Patient Instructions Indication:Non-smoker Start:01-Dec-2019 Instruction Type:Provider Instructions for Treatment How to access health informa tion online Indication:Non-smoker Start:07-Nov-2019 Instruction Type:Patient Education How to access health informa tion online - Detail Indication:Non-smoker Start:07-Nov-2019 Instruction Type:Patient Education Patient Instructions Indication:Non-smoker Start:07-Nov-2019 Instruction Type:Provider Instructions for Treatment How to access health informa tion online Indication:Non-smoker Start:01-Nov-2019 Instruction Type:Patient Education How to access health informa tion online - Detail Indication:Non-smoker Start:01-Nov-2019 Instruction Type:Patient Education Patient Instructions Indication:Non-smoker Start:01-Nov-2019 Instruction Type:Provider Instructions for Treatment How to access health informa tion online Indication:Non-smoker Start:07-Apr-2019 Instruction Type:Patient Education How to access health informa tion online - Detail Indication:Non-smoker Start:07-Apr-2019 Instruction Type:Patient Education Patient Instructions Indication:Non-smoker Start:07-Apr-2019 Instruction Type:Provider Instructions for Treatment How to access health informa tion online Indication:Non-smoker Start:03-Feb-2019 Instruction Type:Patient Education How to access health informa tion online - Detail Indication:Non-smoker Start:03-Feb-2019 Instruction Type:Patient Education Patient Instructions Indication:Non-smoker Start:03-Feb-2019 Instruction Type:Provider Instructions for Treatment How to access health informa tion online Indication:Hypertension, essential, benign Start:30-Dec-2018 Instruction Type:Patient Education How to access health informa tion online - Detail Indication:Hypertension, essential, benign Start:30-Dec-2018 Instruction Type:Patient Education Patient Instructions Indication:Hypertension, essential, benign Start:30-Dec-2018 Instruction Type:Provider Instructions for Treatment How to access health informa tion online Indication:BMI 26.0-26.9,adult Start:15-Dec-2016 Instruction Type:Patient Education How to access health informa tion online - Detail Indication:BMI 26.0-26.9,adult Start:15-Dec-2016 Instruction Type:Patient Education Patient Instructions Indication:BMI 26.0-26.9,adult Start:15-Dec-2016 Instruction Type:Provider Instructions for Treatment Patient Instructions Indication:Depression Start:26-Feb-2016 Instruction Type:Provider Instructions for Treatment How to access health informa tion online Indication:Medicare annual wellness visit, initial Start:20-Dec-2015 Instruction Type:Patient Education How to access health informa tion online - Detail Indication:Medicare annual wellness visit, initial Start:20-Dec-2015 Instruction Type:Patient Education Patient Instructions Indication:Medicare annual wellness visit, initial Start:20-Dec-2015 Instruction Type:Provider Instructions for Treatment How to access health informa tion online Indication:Depression Start:18-Oct-2015 Instruction Type:Patient Education How to access health informa tion online - Detail Indication:Depression Start:18-Oct-2015 Instruction Type:Patient Education Patient Instructions Indication:Depression Start:18-Oct-2015 Instruction Type:Provider Instructions for Treatment How to access health informa tion online Indication:Depression Start:18-Apr-2015 Instruction Type:Patient Education How to access health informa tion online - Detail Indication:Depression Start:18-Apr-2015 Instruction Type:Patient Education Patient Instructions Indication:Depression Start:18-Apr-2015 Instruction Type:Provider Instructions for Treatment How to access health informa tion online Indication:Depression Start:11-Oct-2014 Instruction Type:Patient Education How to access health informa tion online - Detail Indication:Depression Start:11-Oct-2014 Instruction Type:Patient Education Patient Instructions Indication:Depression Start:11-Oct-2014 Instruction Type:Provider Instructions for Treatment Patient Instructions Indication:Depression Start:19-Apr-2014 Instruction Type:Provider Instructions for Treatment Patient Instructions Indication:Hypertension, essential, benign Start:04-Oct-2013 Instruction Type:Provider Instructions for Treatment Patient Instructions Indication:Hypertension, essential, benign Start:15-Jun-2013 Instruction Type:Provider Instructions for Treatment Patient Instructions Indication:Hypertension, essential, benign Start:30-May-2013 Instruction Type:Provider Instructions for Treatment Patient Instructions Indication:Hypothyroidism Start:09-Mar-2013 Instruction Type:Provider Instructions for Treatment Patient Instructions Indication:Depression Start:10-Sep-2012 Instruction Type:Provider Instructions for Treatment Summary Purpose Advance Directives No Advanced Directives Records Found Advance Directive Response Recorded Date/ Time Advance Directives Yes August 28 8:00am Living Will Yes August 28, 2020 8:00am Power of Radiographer Mammographer Yes August 28 8:00am Advance Directive Response Recorded Date/ Time Name of Medical Power of Radiographer Mammographer rodolfo JEAN BAPTISTE March 11, 2022 8:20pm Name of Medical Power of Radiographer Mammographer UNKNOWN May 03, 2022 1:29am Advance Directives Yes August 28 7:00am Living Will Yes May 03, 022 1:29am Power of Radiographer Mammographer Yes May 03, 2022 1:29am Advance Directive Response Recorded Date/ Time Name of Medical Power of Radiographer Mammographer rodolfo JEAN BAPTISTE March 11, 2022 8:20pm Name of Medical Power of Radiographer Mammographer Shannan Coombs May 03, 2022 3:30am Advance Directives Yes August 28 7:00am Living Will Yes May 03, 022 3:30am Power of Radiographer Mammographer Yes May 03, 2022 3:30am Advance Directive Response Recorded Date/ Time Name of Medical Power of Radiographer Mammographer Shannan Coombs May 03, 2022 3:30am Advance Directives Yes August 28 7:00am Living Will Yes May 03 022 3:30am Power of Radiographer Mammographer Yes May 03, 2022 3:30am Documents on File Type Date Recorded Patient Certified Nursing Attendant Expl anation Advance Directive(s) 12/12/2015 9:18 AM Advance Directive Response Recorded Date/ Time Name of Medical Power of Radiographer Mammographer Shannan Coombs May 03, 2022 3:30am Name of Medical Power of Radiographer Mammographer shannan coombs July 20, 2022 10:05am Advance Directives Yes August 28 7:00am Living Will Yes July 20, 023 10:05am Power of Radiographer Mammographer Yes July 20, 2022 10:05am Advance Directive Response Recorded Date/ Time Name of Medical Power of Radiographer Mammographer Shannan Coombs May 03, 2022 3:30am Name of Medical Power of Radiographer Mammographer SHANNAN COOMBS July 20, 2022 12:15pm Advance Directives Yes August 28 7:00am Living Will Yes July 20, 023 12:15pm Power of Radiographer Mammographer Yes July 20, 2022 12:15pm Advance Directive Response Recorded Date/ Time Name of Medical Power of Radiographer Mammographer SHANNAN COOMBS July 20, 2022 1:15pm Advance Directives Yes August 28 8:00am Living Will Yes July 20, 023 1:15pm Power of Radiographer Mammographer Yes July 20, 2022 1:15pm Chief Complaint and Reason for Visit Chief Complaint ABN MAMM ABN MAMM Reason for Visit Abnormal mammogram o f left breast Chief Complaint PALPITATIONS palps AFIB WITH RVR Reason for Visit Paroxysmal atrial fi brillation with RVR SVT (supraventricular tachycardia) WPW (Nirib-Vxkheouoq-Etdzr syndrome) Essential hypertension History of radiofrequency ablation procedure for cardiac arrhythmia Acute hypokalemia Atrial fibrillation with rapid ventricular response Chronic anticoagulation History of cardiac radiofrequency ablation History of Lfaov-Jbewlkejm-Kajzr (WPW) syndrome Hypercoagulability due to atrial fibrillation Chief Complaint PALPITATIONS palps AFIB WITH RVR Reason for Visit History of radiofreq uency ablation procedure for cardiac arrhythmia Acute hypokalemia Atrial fibrillation with rapid ventricular response Chief Complaint palps AFIB WITH RVR COUGH/WHEEZING 3 M FU REFERRED SELF SCREENING/POST MENOPAUSE Reason for Visit Paroxysmal atrial fi brillation with RVR History of radiofrequency ablation procedure for cardiac arrhythmia SVT (supraventricular tachycardia) WPW (Chysd-Kfperdvvb-Riaem syndrome) Acute hypokalemia Atrial fibrillation with rapid ventricular response Acute bronchitis Cough Paroxysmal atrial fibrillation with RVR SVT (supraventricular tachycardia) WPW (Bihmr-Xnodxkqge-Lbkyr syndrome) Chief Complaint AFIB WITH RVR COUGH/WHEEZING 3 M FU REFERRED SELF SCREENING/POST MENOPAUSE AFIB WITH RVR AFIB WITH RVR Reason for Visit Acute hypokalemia Atrial fibrillation with rapid ventricular response Acute bronchitis Cough Paroxysmal atrial fibrillation with RVR SVT (supraventricular tachycardia) WPW (Tiuwi-Rdseomflg-Rdsmc syndrome) Atrial fibrillation with RVR Chronic anticoagulation Palpitations Chief Complaint COUGH/WHEEZING 3 M FU REFERRED SELF SCREENING/POST MENOPAUSE AFIB WITH RVR AFIB WITH RVR EKG AFIB WITH RVR S/P WC, ANTIARRHYTHMIC Reason for Visit Acute bronchitis Cough Paroxysmal atrial fibrillation with RVR SVT (supraventricular tachycardia) WPW (Hmixi-Srlretgeq-Dayqc syndrome) Chronic anticoagulation Palpitations Atrial fibrillation with RVR Paroxysmal atrial fibrillation with RVR SVT (supraventricular tachycardia) WPW (Wtlpy-Bxlofumlm-Ybirc syndrome) Additional Source Comments INFORMATION SOURCE (unrecogn ized section and content) DATE CREATED AUTHOR 12/16/2019 [facility] DATE CREATED AUTHOR AUTHOR'S ORGANIZ ATION 07/20/2022 [facility] DATE CREATED AUTHOR AUTHOR'S ORGANIZ ATION 09/25/2022 [facility] DATE CREATED AUTHOR AUTHOR'S ORGANIZ ATION 11/25/2024 [facility] Goals (unrecognized section and content) Goals may be documented in a n alternate sectionGoals may be documented in an alternate section Care Teams (unrecognized sec tion and content) Team Status: Active Member Role Status Dates Dr. Ana Lilia Sagastume DO Family Provider Active Dr. Ana Lilia Sagastume DO Primary Care Provider Active Team Status: Inactive Member Role Status Dates Dr. Ana Lilia Sagastume DO Primary Care Provider, Referr ing Provider Active Leila PHOEN[place], PA Attending Provider Active Team Status: Active Member Role Status Dates Dr. Ana Lilia Sagastume DO Primary Care Provider Active Dr. Nino Souza MD Attending Provider Activ e Team Status: Inactive Member Role Status Dates Dr. Ana Lilia Sagastume DO Primary Care Provider Active Dr. Milton Cabrales MD Emergency Provider Active Dr. Donte Anglin MD Admit Provider, Other Provide r Active Dr. Alonzo Christiansen , DO Attending Provider Active Team Status: Inactive Member Role Status Dates Dr. Ana Lilia Sagastume DO Primary Care Provider, Attend ing Provider Active Team Status: Inactive Member Role Status Dates Dr. Ana Lilia Sagastume DO Primary Care Pr ovider, Attending Provider, Referring Provider Active Team Status: Active Member Role Status Dates Dr. Ana Lilia Sagastume DO Primary Care Provider Active Self Referred Attending Provider, Referring Provider A ctive Supervisor Volunteer Services Relationship Specialty Start Date End Date Ana Lilia Sagastume DO [address] [facility] [address] [place] [address] PCP - General 04/26/02 Leila Burroughs ([place]) [address] [place] [address] Physician Senior Scrum Master Pulmonary and Critical Care Medicine 07/10/22 Jorge Alberto Valle [address] [place] [address] Specialty Lead Electrical Engineer Cardiology 07/11/22 Team Status: Active Member Role Status Dates Dr. Ana Lilia Keith , DO Primary Care Provider Active Dr. Dung Myles , DO Emergency Provider Active Dr. Valerie Montano , DO Admit Provider, Att ending Provider, Other Provider Active Team Status: Active Member Role Status Dates Dr. Ana Lilia Sagastume , DO Primary Care Provider Active Dr. Dung Myles , DO Emergency Provider Active Dr. Valerie Montano , DO Admit Provider, Attending Provide r Active Team Status: Inactive Member Role Status Dates Dr. Ana Lilia Sagastume , DO Primary Care Provider Active Dr. Dung Myles , DO Emergency Provider Active Dr. Valerie Montano , DO Admit Provider, Other Provider Ac tive Dr. Nena Bruno MD Other Provider Active Dr. Everett Avila MD Attending Provider Active Team Status: Active Member Role Status Dates Dr. Ana Lilia Sagastume , Primary Care Provider Active Dr. Dung Myles , DO Emergency Provider Active Dr. Valerie Montano , DO Admit Provider, Other Provider Ac tive Dr. Nena Bruno MD Other Provider Active Dr. Everett Avila MD Attending Provider, Other Provider Active Team Status: Inactive Member Role Status Dates Dr. Ana Lilia Sagastume , DO Primary Care Provider, Referr ing Provider Active Gisel Quezada DIRECTOR [employer], DIRECTOR [employer]-C Attending Provider Active Team Status: Active Member Role Status Dates Dr. Ana Lilia Sagastume , DO Primary Care Provider Active Dr. Jorge Alberto Valle MD Attending Provider Active Dr. Valerie Montano , Referring Provider Active Source Comments (unrecognize d section and content) In the event this informatio n is protected by the Federal Confidentiality of Alcohol and Drug Abuse Patient Records regulations: The Federal rules restrict any use of the information to criminally investigate or prosecute any alcohol or drug abuse patient.[facility] Reason for Visit (unrecogniz ed section and content) Reason Comments New Patient Ref from [facility] for PAF FOR RECORDS PERTAINING TO PATIENTS WHO ARE OR HAVE BEEN ENROLLED IN A CHEMICAL DEPENDENCY/SUBSTANCEABUSE PROGRAM, SOME INFORMATION MAY BE OMITTED. This clinical summary was aggregated from multiple sources. Caution should be exercised in using it in the provision of clinical care. This summary normalizes information from multiple sources, and as a consequence, information in this document may materially change the coding, format and clinical context of patient data. In addition, data may be omitted in some cases. CLINICAL DECISIONS SHOULD BE BASED ON THE PRIMARY CLINICAL RECORDS. [facility]. provides no warranty or guarantee of the accuracy or completeness of information in this document.
[2025-01-21 09:48] LABS: Hematocrit 39.3 % (37-47); Hemoglobin 12.6 g/dL (12.0-15.0); Immature Granulocytes Count 0.010 X10^3/uL (0.0-0.0); Mean Corp Hgb Conc 32.1 g/dL (32-36); Mean Corpuscular Volume 77.1 fL (81-99); Mean Platelet Vol. 10.2 fl (6.2-12.0); NRBC Flagged by Analyzer 0 % (0-5); Platelet Count 345 K/mm3 (150-450); RBC Distribution Width CV 15.5 % (11.6-14.6); RBC Distribution Width SD 42.7 fl (35.1-43.9); Red Blood Count 5.10 M/mm3 (4.2-5.4); White Blood Count 7.4 K/mm3 (4.4-11.0)
[2025-01-21 09:52] LABS: Color, Urine Yellow (Yellow); Glucose, Dipstick Normal (Normal); Ketone-Dipstick Negative (Negative); Leukocyte Esterase-Dipstick Negative /ul (Negative); Nitrite-Dipstick Negative (Negative); Occult Blood-Urine 10 /ul (Negative); Protein-Dipstick Negative (Negative); Specific Gravity, Urine 1.015 (1.002-1.030); Urine Bilirubin Dipstick Negative (Negative)
[2025-01-21 10:03] LABS: Red Blood Cells-Urine 0-5 SEEN /hpf (0-5)
[2025-01-21 10:37] LABS: Creatinine, Urine (random) 80.00 mg/dL (28.00-217.00); Microalbumin,Random Urine < 12.0 mg/L (<20 mg/L)
[2025-01-21 10:52] LABS: AST(SGOT) 19 U/L (<=31); Alanine Aminotransfer ALT/SGPT 14 U/L (<=34); Albumin, Serum 3.9 g/dL (3.4-4.8); Alkaline Phosphatase 91 U/L (35-104); Anion Gap 12 (5-15); BUN 24 mg/dL (4-19); BUN/Creat Ratio 27.9 RATIO (10-20); Calcium,Total 10.1 mg/dL (7.6-11.0); Carbon Dioxide 26.1 mmol/L (21.0-32.0); Chloride 99 mmol/L (98-108); Cholesterol 166 mg/dL (<=200); Globulin 2.3 g/dL (2.2-4.2); Glucose 109 mg/dL (70-99); Low Density Lipoprotein Calc. 98 mg/dL; Potassium 4.5 mmol/L (3.3-5.1); Triglycerides 53 mg/dL; Very Low Density Lipoprotein 11 mg/dL (5-40); Vitamin B12 399 pg/mL (180-914); Vitamin D,25 Hydroxy 25.1 ng/mL (30-100); cholesterol:hdl ratio screen 2.88
== END | disposition home or self-care (01) ==
LOC: LAB 09:15
PROVIDERS: PCP Internal Medicine; Referring Provider Internal Medicine; Visit Provider Internal Medicine
DX: Z12.12 Encounter for screening for malignant neoplasm of rectum (principal); R73.09 Other abnormal glucose; E03.9 Hypothyroidism, unspecified; E55.9 Vitamin D deficiency, unspecified; E53.8 Deficiency of other specified B group vitamins
CPT/HCPCS: 36415; 80053; 80061; 81001; 82043; 82306; 82570; 82607; 85025

== ENCOUNTER → 2025-02-08 | Outpatient (CLI) | payer MEDICARE, SELFPAY ==
--- NOTE | 2025-02-08 15:26 | BD_ITS ---
PROCEDURE: DEXA BONE DENSITY STUDY 02/08/2025 REASON FOR EXAM: F, age 74 y/o . Postmenopausal. TECHNIQUE: Procedure Code: BDDBD Modality: DX Procedure: DEXA BONE DENSITY STUDY COMPARISON: Prior study dated July 03, 2022. FINDINGS: BMD and T-SCORES Lumbar spine: 1.118 g/cm2, T-score 0.6 Levels: L1 through L4 Change from prior: Improvement of 2.9%. Left femoral neck: 0.704 g/cm2, T-score -1.3 Femoral neck comparison data not recommended for monitoring change. Left total hip: 0.823 g/cm2, T-score -1.1 Change from prior: Loss of 6.4%. Right femoral neck: 0.664 g/cm2, T-score -1.7 Femoral neck comparison data not recommended for monitoring change. Right total hip: 0.709 g/cm2, T-score -1.9 Change from prior: Loss of 7.1%. The World Health Organization has defined the following categories based on bone density: Normal bone density: T-score equal to or greater than -1.0 Osteopenia: T-score between -1.0 and -2.5 Osteoporosis: T-score equal to or less than -2.5 FRAX (or Comparable) Fracture Risk Assessment: 10 Year Probability of Fracture: Major Osteoporotic Fracture: 25% Hip Fracture: 5.5% (Note: FRAX is not to be reported in setting of normal range bone density, osteoporosis on DEXA, known history of osteoporosis, prior osteoporotic hip or vertebral fracture, or for any patient undergoing pharmacological treatment for bone loss.) The National Osteoporosis Foundation (NOF) recommends pharmacological treatment for patients with a FRAX 10-year risk of 3% or higher for a hip fracture, or 20% or higher for a major osteoporotic fracture, to prevent osteoporosis and reduce fracture risk. The patient does meet the pharmacological treatment recommendations for prevention of osteoporosis. BD/Dexa Bone Density Study IMPRESSION: OSTEOPENIA. Recommend follow-up as clinically warranted. Reading Location: [place] [id number]
--- NOTE | 2025-02-08 16:15 | BI_ITS ---
EXAM: SCRN MAMM (CAD)W/LEESA BILAT DATE: 02/08/2025 CLINICAL HISTORY: F, Age 74 y/o , SCRN MAMM (CAD)W/LEESA BILAT No family history. History of prior left stereotactic breast biopsy. TECHNIQUE: Procedure Code: [id number] Modality: MG Procedure: SCRN MAMM (CAD)W/LEESA BILAT COMPARISON: Prior exam(s) dated July 06, 2023.. FINDINGS: TISSUE DENSITY: The breasts are almost entirely fatty. Bilateral Breast Mammographic Findings: No significant masses, calcifications or other abnormalities are identified. A tissue clip marker is once again seen in the deep upper lateral aspect of the left breast. Stable fat containing bilateral axillary lymph nodes. No suspicious masses, areas of developing architectural distortion, or suspicious calcifications. There has been no significant interval change. BI/SCRN MAMM (CAD)W/LEESA BILAT IMPRESSION: Stable bilateral screening mammogram. OVERALL FINAL ASSESSMENT BI-RADS 2: BENIGN RECOMMENDATION: Routine annual follow-up in 1 Year A letter with findings and recommendations will be mailed to the patient. Reading Location: [place] [address]
== END | disposition home or self-care (01) ==
PROVIDERS: PCP Internal Medicine; Referring Provider Internal Medicine; Visit Provider Internal Medicine
DX: Z12.31 Encounter for screening mammogram for malignant neoplasm of breast (principal); Z78.0 Asymptomatic menopausal state
CPT/HCPCS: 77063; 77067; 77080